=== PATIENT | male | born 1950 | race Caucasian/White ===

== ENCOUNTER 2019-09-24 22:48 | Inpatient (IN) | payer OTHER ==
--- NOTE | 2019-09-24 23:29 | PDOC ---
History of Present Illness - General Chief Complaint: Edema Stated Complaint: LEG SWELLING/SOB Time Seen by Provider: 09/24/19 23:26 Past History - Medical History Allergies/Adverse Reactions: Allergies Allergy/AdvReac Type Severity Reaction Status Date / Time Penicillins Allergy Intermediate Rash Verified 09/25/19 01:22 aspirin AdvReac Intermediate Verified 09/25/19 01:22 Home Medications: Ambulatory Orders Amlodipine Besylate [Norvasc -] 10 mg PO DAILY 09/27/19 Irbesartan [Avapro] 300 mg PO DAILY 09/27/19 metFORMIN HCL [Metformin HCl] 850 mg PO DAILY 09/27/19 COPD: No Diabetes: Yes HTN: Yes - Psycho-Social/Smoking History Smoking History: Never smoked - Substance Abuse Hx (Audit-C & DAST Scrn) How often the patient has a drink containing alcohol: Never Score: In Men: 4 or > Positive; In Women: 3 or > Positive: 0 Screen Result (Pos requires Nsg. Audit-10AR): Negative *Physical Exam - Vital Signs Last Vital Signs Temp Pulse Resp BP Pulse Ox 98.7 F 103 H 20 171/77 H 100 09/24/19 23:03 09/24/19 23:03 09/24/19 23:03 09/24/19 23:03 09/24/19 23:03 ED Treatment Course - LABORATORY CBC & Chemistry Diagram: 09/30/19 05:58 09/30/19 05:58 Medical Decision Making - Medical Decision Making 09/24/19 23:49 HPI: 69yo M hx large heart, HTN (on med), DM (on med, no insulin), and kidney problems (not on dialysis) flew from [facility] today came straight here for medical care c/o 4mo BLE edema, 1mo SOB and intermittent CP worse with exertion, 4 episodes of syncope last week, and 3 days of decreased appetite and b/l kidney pain. BLE edema so poor unable to walk. Syncope with head injury and chin and mouth lac. Tetanus unknown. ROS: Constitutional: Negative for chills, fever, fatigue, diaphoresis. HENT: Positive for head injury, lacs to chin and mouth. Negative for sore throat, rhinorrhea, congestion. Eyes: Negative for visual disturbance. Respiratory: Positive for shortness of breath. Negative for cough, and wheezing. Cardiovascular: Positive for chest pain, and leg swelling. Negative for palpitations. Gastrointestinal: Positive for decreased appetite. Negative for abdominal pain, blood in stool, constipation, diarrhea, nausea, and vomiting. Genitourinary: Positive for b/l flank pain. Negative for dysuria, and hematuria. Musculoskeletal: Negative for myalgias, back pain, and neck pain. Skin: Negative for rash. Neurological: Positive for syncope. Negative for light-headedness, dizziness, vertigo, weakness, numbness and headaches. Psychiatric/Behavioral: Negative for behavioral problems and confusion. PE: Gen: Alert, NAD, comfortable-appearing. HEENT: PERRL, EOMI, MMM, NC, healing lacs to chin and mouth. No conjunctival pallor. Sclera are non-icteric. Oropharynx is clear. CV: Regular rate and rhythm. No murmurs, rubs, or gallops. PULM: No resp distress. CTAB, no wheezes, rales, or rhonchi. ABD: soft, NT/ND, no rebound tenderness or guarding, no CVA tenderness. BACK: No TTP of c/t/l-spine. No step-offs or deformities. MSK: No bony deformities. 2+ pulses in all extremities. NEURO: AAOx3. PERRL. CN 2-12 intact. 5/5 strength in all extremities. Sensation to light touch intact in all extremities. No pronator drift. No dysmetria. No dysdiadochokinesia. No abnormal nystagmus. EXTREMITIES: No cyanosis. No clubbing. 2+ BLE edema to knees. No calf tenderness. PSYCH: Normal mood and thought pattern. SKIN: Warm and dry. Normal capillary refill. No rashes. + questionable jaundice. MDM: 69yo M hx large heart, HTN (on med), DM (on med, no insulin), and kidney problems (not on dialysis) flew from [facility] today came straight here for medical care c/o 4mo BLE edema, 1mo SOB and intermittent CP worse with exertion, 4 episodes of syncope last week, and 3 days of decreased appetite and b/l kidney pain. Hypertensive, tachycardic, otherwise hemodynamically stable, afebrile. PE notable for healing lac to chin and mouth, neurologically intact, yellow skin, 2+ BLE edema to knees Ddx: renal failure, JAQUELINE, metabolic derangement, CHF, COPD, ACS/WA, arrhythmia, ICH, stroke, UTI/pyelo, kidney stones, infection, anemia -EKG -CXR -CBC,CMP,Mg,Phos,Coags,Cardiac profile,BNP,UA/UC -CTH/c-spine -Tdap -Dispo: pending workup and reassessment, likely d/c home 09/25/19 01:36 Labs reviewed. Notable for Renal failure, hyperkalemia EKG reviewed: normal sinus rhythm, 98bpm, normal axis, normal intervals, no e/o acute ischemia, no significant change from prior CXR reviewed: focal scarring or atelectasis by L heard border, consider other etiologies, no e/o infiltrate or failure, L clips, old L humeral fx -Consult Renal -Ca, D50, Insulin, IVF -Admit tele 09/25/19 01:[address] Galdamez -Ashia 30 -Lasix 100 -repeat labs in 4hrs, if no improvement, will need emergent dialysis, let Rudolph know of repeat labs 09/25/19 02:24 CT c-spine/head: no acute pathology Signed out to inpatient team Discharge - Discharge Information Problems reviewed: Yes Clinical Impression/Diagnosis: Hyperkalemia Kidney failure Qualifiers: Renal failure chronicity: acute on chronic Condition: Stable - Admission Yes - Follow up/Referral - Patient Discharge Instructions - Post Discharge Activity
[2019-09-24] MEDS ORDERED: DIPHTH,PERTUSS(ACELL),TET 0.5 ML DISP.SYRIN IM ONE (23:57)
[2019-09-25 00:34] LABS: BASO % 0.4 % (0-2.0); EOS % 4.6 % (0-4.5); HEMATOCRIT 30.5 % (35.4-49); HEMOGLOBIN 9.9 GM/dL (11.7-16.9); LYMPH % 18.5 % (8-40); MCH 29.4 pg (25.7-33.7); MCHC 32.6 g/dl (32.0-35.9); MEAN CELL VOLUME 90.2 fl (80-96); MEAN PLT VOLUME 7.4 fl (7.5-11.1); MONO % 10.1 % (3.8-10.2); NEUT % 66.4 % (42.8-82.8); PLATELET COUNT 220 K/MM3 (134-434); RBC 3.38 M/mm3 (4.00-5.60); WHITE BLOOD COUNT 8.9 K/mm3 (4.0-10.0)
[2019-09-25 00:35] LABS: INR 1.03 (0.83-1.09); PROTHROMBIN TIME (PATIENT) 12.1 SEC (9.7-13.0)
[2019-09-25 00:37] LABS: ACTIVATED PTT 31.7 SECONDS (25.2-36.5)
[2019-09-25 01:03] LABS: ALBUMIN 3.7 g/dl (3.4-5.0); BILIRUBIN,TOTAL 0.4 mg/dL (0.2-1); BLOOD UREA NITROGEN 80.3 mg/dL (7-18); CALCIUM 8.7 mg/dL (8.5-10.1); MAGNESIUM 1.7 mg/dL (1.8-2.4); N-TERMINAL BNP 18709.5 pg/ml (5-125); PHOSPHOROUS 5.7 mg/dL (2.5-4.9); TOT PROT 7.7 g/dl (6.4-8.2)
[2019-09-25 01:17] LABS: POTASSIUM 7.7 mmol/L (3.5-5.1)
[2019-09-25] MEDS ORDERED: DEXTROSE 50%-WATER - 25 GM/50 ML VIAL IVPUSH ONE ×3 (01:17→09:56)
[2019-09-25] MEDS ORDERED: INSULIN REGULAR HUMAN 100 UNITS/ML *VIAL IVPUSH ONE ×2 (01:17→09:57)
[2019-09-25] MEDS ORDERED: CALCIUM GLUCONATE 10% - 1,000 MG/10 ML VIAL IVPUSH ONE ×2 (01:17→09:55)
[2019-09-25] MEDS ORDERED: SODIUM CHLORIDE 250 ML IV STA (01:19)
[2019-09-25 01:24] LABS: EPI CELLS 6 /uL (0-25.1); HYALINE CASTS 0 /uL (0-3.1); URINE APPEARANCE CLEAR; URINE BACTERIA 79 /uL (0-1359); URINE BILIRUBIN NEGATIVE (NEGATIVE); URINE COLOR YELLOW; URINE GLUCOSE (UA) NEGATIVE (NEGATIVE); URINE KETONE NEGATIVE (NEGATIVE); URINE LEUK ESTERASE NEGATIVE (NEGATIVE); URINE NITRITE NEGATIVE (NEGATIVE); URINE PROTEIN 3+ (NEGATIVE); URINE RBC 23 /uL (0-23.9); URINE UROBILINOGEN 0.2 mg/dL (0.2-1.0); URINE WBC 6 /uL (0-25.8)
[2019-09-25] MEDS ORDERED: CALCIUM GLUCONATE 10% - 1,000 MG/10 ML VIAL ONE (01:24)
[2019-09-25] MEDS ORDERED: DEXTROSE 50%-WATER 25 GM/50 ML DISP.SYRIN ONE ×2 (01:25→10:01)
[2019-09-25] MEDS ORDERED: FUROSEMIDE 100 MG/10 ML INJECTABLE VIAL IVPB ONE (01:41)
[2019-09-25] MEDS ORDERED: SODIUM POLYSTYRENE SULFONATE 15 GM/60 ML BOTTLE PO ONE (01:41)
--- NOTE | 2019-09-25 02:04 | PN ---
Teaching Attending Note Name of Resident: Milagros Harrington ATTENDING PHYSICIAN STATEMENT I saw and evaluated the patient. I reviewed the resident's note and discussed the case with the resident. I agree with the resident's findings and plan as documented. SUBJECTIVE: Patient is a 69 year old man with a PMH of "Large heart", Penicillin allergy, HTN, NIDDM and CKD who flew in from [facility] today with complaint of BLE edema, SOB and intermittent CP worse with exertion for months. Reports four episodes of syncope last week and three days of decreased appetite and bilateral "kidney pain". BLE edema so bad he is unable to walk. Syncope resulted in head injury and chin and mouth laceration. Denies fever, chills, headache, nausea, v omiting, or urinary changes. Denies alcohol, tobacco or illicit drug use. No sick contacts or recent travels. Family history is unremarkable. OBJECTIVE: Alert Vital Signs Period Temp Pulse Resp BP Sys/Lopes Pulse Ox Last 24 Hr 98.7 F 103 20 171/77 100 HEENT: No Jaundice, eye redness or discharge, PERRLA, EOMI. Chin laceration; Normocephalic. External ears are normal and hearing is grossly intact. No nasal discharge. Neck: Supple, nontender. No palpable adenopathy or thyromegaly. No JVD Chest: Good effort. Clear to auscultation and percussion. Heart: Regular. No S3, rub or murmur Abdomen: Not distended, soft, nontender and no HSM. No rebound or guarding. Normal bowel sounds. Ext: Peripheral pulses intact. Leg edema. Skin: Warm and dry. No petechiae, rash or ecchymosis. Neuro: Alert. Oriented x3. CN 2-12 grossly intact. Sensation grossly intact in all four extremities and DTR are symmetric. Psych: Appropriate mood and affect. Good insight. Current Medications Generic Name Dose Route Start Last Admin Trade Name Freq PRN Reason Stop Dose Admin Diphtheria/Tetanus/Acell Pertussis 0.5 ml 09/24/19 23:57 09/25/19 01:45 Boostrix - IM 09/24/19 23:58 0.5 ml .ONCE ONE Administration Sodium Bicarbonate 50 meq 09/25/19 02:06 09/25/19 02:35 Sodium Bicarbonate 8.4% - IVPUSH 09/25/19 02:07 50 meq ONCE ONE Administration Abnormal Lab Results 09/25/19 09/25/19 09/25/19 00:09 00:09 01:00 RBC 3.38 L Hgb 9.9 L Hct 30.5 L RDW 17.0 H MPV 7.4 L Eosinophils % 4.6 H Potassium 7.7 H* Chloride 114 H Carbon Dioxide 17 L BUN 80.3 H Creatinine 13.0 H* Phosphorus 5.7 H Magnesium 1.7 L AST 61 H ALT 67 H Creatine Kinase 1820 H CK-MB (CK-2) 19.3 H Troponin I 0.06 H B-Natriuretic Peptide 39969.5 H Urine Protein 3+ H Urine Blood 3+ H Current Medications Generic Name Dose Route Start Last Admin Trade Name Freq PRN Reason Stop Dose Admin Diphtheria/Tetanus/Acell Pertussis 0.5 ml 09/24/19 23:57 09/25/19 01:45 Boostrix - IM 09/24/19 23:58 0.5 ml .ONCE ONE Administration Heparin Sodium (Porcine) 5,000 unit 09/25/19 06:00 Heparin - SQ TID [facility] Insulin Aspart 1 vial 09/25/19 07:00 Novolog Vial Sliding Scale - SQ ACHS [facility] Protocol ASSESSMENT AND PLAN: 1. Advanced CKD/Severe hyperkalemia/Syncope - Syncope likely due to metabolic/electrolyte derangements associated with kidney failure. No evidence of acute intracranial pathology on noncontrast head CT scan. CXR shows cardiomegaly with no evidence of acute lung disease. Report of C-spine CT = "1. There is no definitive evidence of acute compression fracture or subluxation seen. 2. There is straightening of the normal lordotic curvature which may be seen with muscular strain. 3. There is multilevel multi-factorial spondylosis" No reported EKG changes of hyperkalemia in the ER. ER staff prescribed Nitropaste, calcium gluconate, Kayexalate, D50W, IV Insulin, IV NaHCO3, IV Lasix 100 mg, DPT vaccine and IV NS for the patient. Repeat BMP pending. ER staff consulted Nephrology for ESRD care. Will get kidney sonogram and monitor urine output. Avoid nephrotoxic agents such as NSAIDS, aminoglycosides, contrast dyes and certain Alternative medicine products. EKG shows NSR at 98/minute, LAE, Tall peaked T waves and QTc [address] changes. Troponin of 0.06 likely due to decreased clearance and/or demand ischemia. Will admit to telemetry, trend troponin, get ECHO, TSH, continue to monitor K+, get abdominal sonogram to evaluate elevated LFTs, PTH, trend LFTs, treat with phosphate binder and get hepatitis serology. Consult Cardiology. Viral testing for COVID-19 ordered and patient placed on airborne, droplet and contact isolation. Will continue comprehensive care for all of patients comorbid conditions. 2. DM For now, we will hold the home diabetes drugs and implement sliding scale insulin regimen. Provide comprehensive diabetes care with patient teaching and counseling about the importance of adherence to prescribed diabetes regimen, euglycemia, eye care and foot care. 3. Anemia - Likely chiefly due to CKD. Will do basic anemia work up including serial stool guaiacs, reticulocyte count and iron studies. Would benefit from Procrit therapy once iron replete. 4. Uncontrolled hypertension Will restart suitable outpatient antihypertensive drugs when clinically appropriate. Subsequently, will revise regimen to ensure [id number] excellent BP control. Patient counseled on the injurious effects of uncontrolled hypertension. Nonpharmacologic measures to control hypertension like weight loss, salt restriction and exercise stressed. Importance of adherence to treatment regimen and attainment of normotension emphasized. 5. DVT prophylaxis - Heparin 5000u sq tid. 6. Advance directives - Full code.
[2019-09-25] MEDS ORDERED: SODIUM BICARBONATE 8.4% 50 MEQ/50 ML DISP.SYRIN IVPUSH ONE (02:06)
[2019-09-25] MEDS ORDERED: SODIUM POLYSTYRENE SULFONATE 15 GM/60 ML BOTTLE ONE ×2 (02:08→02:09)
[2019-09-25] MEDS ORDERED: FUROSEMIDE 40 MG/4 ML INJECTABLE VIAL ONE ×2 (02:08→10:01)
[2019-09-25] MEDS ORDERED: NITROGLYCERIN 2% OINTMENT - 1GM PACKET TD ONE ×2 (02:28→02:29)
[2019-09-25 05:09] LABS: ALBUMIN 3.5 g/dl (3.4-5.0); BILIRUBIN,TOTAL 0.4 mg/dL (0.2-1); BLOOD UREA NITROGEN 80.7 mg/dL (7-18); CALCIUM 8.7 mg/dL (8.5-10.1); MAGNESIUM 1.7 mg/dL (1.8-2.4); PHOSPHOROUS 5.4 mg/dL (2.5-4.9); POTASSIUM 5.3 mmol/L (3.5-5.1); TOT PROT 7.3 g/dl (6.4-8.2)
[2019-09-25 05:10] LABS: CREATININE 12.8 mg/dL (0.55-1.3)
[2019-09-25] MEDS: INSULIN SLIDING SCALE (NOVOLOG) 1 VIAL SQ SCH ×4 (06:43→22:44)
--- NOTE | 2019-09-25 06:45 | PN ---
Physical Exam: SUBJECTIVE: Patient seen and examined OBJECTIVE: Vital Signs Period Temp Pulse Resp BP Sys/Lopes Pulse Ox Last 24 Hr 97.6 F-98.7 F 103-107 19-20 145-171/71-80 97-100 GENERAL: The patient is awake, alert, and fully oriented, in no acute distress. HEAD: Normal with no signs of trauma. EYES: PERRL, extraocular movements intact, sclera anicteric, conjunctiva clear. No ptosis. ENT: Ears normal, nares patent, oropharynx clear without exudates, moist mucous membranes. NECK: Trachea midline, full range of motion, supple. LUNGS: Breath sounds equal, clear to auscultation bilaterally, no wheezes, no crackles, no accessory muscle use. HEART: Regular rate and rhythm, S1, S2 without murmur, rub or gallop. ABDOMEN: Soft, nontender, nondistended, normoactive bowel sounds, no guarding, no rebound, no hepatosplenomegaly, no masses. EXTREMITIES: 2+ pulses, warm, well-perfused, no edema. NEUROLOGICAL: Cranial nerves II through XII grossly intact. Normal speech, gait not observed. PSYCH: Normal mood, normal affect. SKIN: Warm, dry, normal turgor, no rashes or lesions noted Laboratory Results - last 24 hr 09/25/19 09/25/19 09/25/19 00:09 00:09 00:09 WBC 8.9 RBC 3.38 L Hgb 9.9 L Hct 30.5 L MCV 90.2 MCH 29.4 MCHC 32.6 RDW 17.0 H Plt Count 220 MPV 7.4 L Absolute Neuts (auto) 5.9 Neutrophils % 66.4 Lymphocytes % 18.5 Monocytes % 10.1 Eosinophils % 4.6 H Basophils % 0.4 Nucleated RBC % 0 PT with INR 12.10 INR 1.03 PTT (Actin FS) 31.7 Sodium 141 Potassium 7.7 H* Chloride 114 H Carbon Dioxide 17 L Anion Gap 10 BUN 80.3 H Creatinine 13.0 H* Est GFR (CKD-EPI)AfAm 4.02 Est GFR (CKD-EPI)NonAf 3.46 POC Glucometer Random Glucose 100 Calcium 8.7 Phosphorus 5.7 H Magnesium 1.7 L Total Bilirubin 0.4 AST 61 H ALT 67 H Alkaline Phosphatase 83 Creatine Kinase 1820 H Creatine Kinase Index 1.0 CK-MB (CK-2) 19.3 H Troponin I 0.06 H B-Natriuretic Peptide 85025.5 H Total Protein 7.7 Albumin 3.7 Urine Color Urine Appearance Urine pH Ur Specific [place] Urine Protein Urine Glucose (UA) Urine Ketones Urine Blood Urine Nitrite Urine Bilirubin Urine Urobilinogen Ur Leukocyte Esterase Urine WBC (Auto) Urine RBC (Auto) Urine Casts (Auto) U Pathogenic Cast Auto U Epithel Cells (Auto) Urine Bacteria (Auto) 09/25/19 09/25/19 09/25/19 01:00 04:06 06:29 WBC RBC Hgb Hct MCV MCH MCHC RDW Plt Count MPV Absolute Neuts (auto) Neutrophils % Lymphocytes % Monocytes % Eosinophils % Basophils % Nucleated RBC % PT with INR INR PTT (Actin FS) Sodium 144 Potassium 5.3 H Chloride 116 H Carbon Dioxide 16 L Anion Gap 12 BUN 80.7 H Creatinine 12.8 H* Est GFR (CKD-EPI)AfAm 4.09 Est GFR (CKD-EPI)NonAf 3.53 POC Glucometer 71 Random Glucose 51 L Calcium 8.7 Phosphorus 5.4 H Magnesium 1.7 L Total Bilirubin 0.4 AST 54 H ALT 61 Alkaline Phosphatase 79 Creatine Kinase Creatine Kinase Index CK-MB (CK-2) Troponin I B-Natriuretic Peptide Total Protein 7.3 Albumin 3.5 Urine Color Yellow Urine Appearance Clear Urine pH 5.0 Ur Specific [place] 1.012 Urine Protein 3+ H Urine Glucose (UA) Negative Urine Ketones Negative Urine Blood 3+ H Urine Nitrite Negative Urine Bilirubin Negative Urine Urobilinogen 0.2 Ur Leukocyte Esterase Negative Urine WBC (Auto) 6 Urine RBC (Auto) 23 Urine Casts (Auto) 0 U Pathogenic Cast Auto None U Epithel Cells (Auto) 6 Urine Bacteria (Auto) 79 09/25/19 06:42 WBC RBC Hgb Hct MCV MCH MCHC RDW Plt Count MPV Absolute Neuts (auto) Neutrophils % Lymphocytes % Monocytes % Eosinophils % Basophils % Nucleated RBC % PT with INR INR PTT (Actin FS) Sodium Potassium Chloride Carbon Dioxide Anion Gap BUN Creatinine Est GFR (CKD-EPI)AfAm Est GFR (CKD-EPI)NonAf POC Glucometer 84 Random Glucose Calcium Phosphorus Magnesium Total Bilirubin AST ALT Alkaline Phosphatase Creatine Kinase Creatine Kinase Index CK-MB (CK-2) Troponin I B-Natriuretic Peptide Total Protein Albumin Urine Color Urine Appearance Urine pH Ur Specific [place] Urine Protein Urine Glucose (UA) Urine Ketones Urine Blood Urine Nitrite Urine Bilirubin Urine Urobilinogen Ur Leukocyte Esterase Urine WBC (Auto) Urine RBC (Auto) Urine Casts (Auto) U Pathogenic Cast Auto U Epithel Cells (Auto) Urine Bacteria (Auto) Active Medications Generic Name Dose Route Start Last Admin Trade Name Freq PRN Reason Stop Dose Admin Diphtheria/Tetanus/Acell Pertussis 0.5 ml 09/24/19 23:57 09/25/19 01:45 Boostrix - IM 09/24/19 23:58 0.5 ml .ONCE ONE Administration Heparin Sodium (Porcine) 5,000 unit 09/25/19 06:00 Heparin - SQ TID [facility] Insulin Aspart 1 vial 09/25/19 07:00 09/25/19 06:43 Novolog Vial Sliding Scale - SQ Not Given ACHS [facility] Protocol ASSESSMENT/PLAN: ATTENDING PHYSICIAN STATEMENT I saw and evaluated the patient. I reviewed the resident's note and discussed the case with the resident. I agree with the resident's findings and plan as documented. SUBJECTIVE: OBJECTIVE: ASSESSMENT AND PLAN:
--- NOTE | 2019-09-25 06:46 | HP ---
CHIEF COMPLAINT: lower extremity swelling/shortness of breath PCP: HISTORY OF PRESENT ILLNESS: Pt is a 69 y/o male with HTN, DM, ?CHF, "kidney infection" 2 weeks ago (states he was not given medication for this), who presents with 4 months of worsening b/l LE swelling as well as shortness of breath. He also had 4 episodes of syncope in the last week with one resulting in a small chin laceration. He flew in from the today and came straight to the ED. He reports shortness of breath is improved with sitting up and tries to sleep flat but tends to sit up which causes disturbance in his sleep. He also has mild dizziness that is not positional. He denies fever, chills, nausea, or vomiting. ER course was notable for: (1) Lasix and Kayexalate Recent Travel: returned from today PAST MEDICAL HISTORY: HTN, DM, ?CHF, "kidney infection" 2 weeks ago (states he was not given medication for this) PAST SURGICAL HISTORY: denies Social History: Smoking: denies Alcohol: denies Drugs: denies Family History: cardiac hx and DM Allergies Penicillins Allergy (Intermediate, Verified 09/25/19 01:22) Rash aspirin Adverse Reaction (Intermediate, Verified 09/25/19 01:22) HOME MEDICATIONS: metformin amlodipine irbesartan REVIEW OF SYSTEMS see HPI PHYSICAL EXAMINATION Vital Signs - 24 hr 09/24/19 09/25/19 09/25/19 23:03 03:01 04:13 Temperature 98.7 F 97.9 F 97.8 F Pulse Rate 103 H Pulse Rate [ 106 H 105 H Left Radial] Respiratory 20 20 19 Rate Blood Pressure 171/77 H Blood Pressure 145/71 162/72 [Right Arm] O2 Sat by Pulse 100 97 100 Oximetry (%) 09/25/19 06:14 Temperature 97.6 F Pulse Rate Pulse Rate [ 107 H Left Radial] Respiratory 20 Rate Blood Pressure Blood Pressure 171/80 H [Right Arm] O2 Sat by Pulse 100 Oximetry (%) GENERAL: Awake, alert, and fully oriented, in no acute distress. Croatian- speaking. HEAD: Normal with no signs of trauma. EYES: Pupils equal, round and reactive to light, extraocular movements intact, conjunctiva clear. EARS, NOSE, THROAT: Ears normal, nares patent, moist mucous membranes. NECK: Normal range of motion, no JVD. LUNGS: Clear to auscultation bilaterally. No wheezes, and no crackles. HEART: Regular rate and rhythm, no murmur appreciated. ABDOMEN: Soft, nontender, not distended, normoactive bowel sounds. MUSCULOSKELETAL: Normal range of motion at all joints. UPPER EXTREMITIES: Warm, well-perfused. No peripheral edema. LOWER EXTREMITIES: Warm, well-perfused. +1 pitting edema below knees. NEUROLOGICAL: Cranial nerves II-XII grossly intact. Normal speech. PSYCHIATRIC: Cooperative. Good eye contact. Appropriate mood and affect. SKIN: Warm, dry, normal turgor. 1cm laceration under chin. Laboratory Results - last 24 hr 09/25/19 09/25/19 09/25/19 00:09 00:09 00:09 WBC 8.9 RBC 3.38 L Hgb 9.9 L Hct 30.5 L MCV 90.2 MCH 29.4 MCHC 32.6 RDW 17.0 H Plt Count 220 MPV 7.4 L Absolute Neuts (auto) 5.9 Neutrophils % 66.4 Lymphocytes % 18.5 Monocytes % 10.1 Eosinophils % 4.6 H Basophils % 0.4 Nucleated RBC % 0 PT with INR 12.10 INR 1.03 PTT (Actin FS) 31.7 Sodium 141 Potassium 7.7 H* Chloride 114 H Carbon Dioxide 17 L Anion Gap 10 BUN 80.3 H Creatinine 13.0 H* Est GFR (CKD-EPI)AfAm 4.02 Est GFR (CKD-EPI)NonAf 3.46 POC Glucometer Random Glucose 100 Calcium 8.7 Phosphorus 5.7 H Magnesium 1.7 L Total Bilirubin 0.4 AST 61 H ALT 67 H Alkaline Phosphatase 83 Creatine Kinase 1820 H Creatine Kinase Index 1.0 CK-MB (CK-2) 19.3 H Troponin I 0.06 H B-Natriuretic Peptide 22640.5 H Total Protein 7.7 Albumin 3.7 Urine Color Urine Appearance Urine pH Ur Specific [place] Urine Protein Urine Glucose (UA) Urine Ketones Urine Blood Urine Nitrite Urine Bilirubin Urine Urobilinogen Ur Leukocyte Esterase Urine WBC (Auto) Urine RBC (Auto) Urine Casts (Auto) U Pathogenic Cast Auto U Epithel Cells (Auto) Urine Bacteria (Auto) 09/25/19 09/25/19 09/25/19 01:00 04:06 06:29 WBC RBC Hgb Hct MCV MCH MCHC RDW Plt Count MPV Absolute Neuts (auto) Neutrophils % Lymphocytes % Monocytes % Eosinophils % Basophils % Nucleated RBC % PT with INR INR PTT (Actin FS) Sodium 144 Potassium 5.3 H Chloride 116 H Carbon Dioxide 16 L Anion Gap 12 BUN 80.7 H Creatinine 12.8 H* Est GFR (CKD-EPI)AfAm 4.09 Est GFR (CKD-EPI)NonAf 3.53 POC Glucometer 71 Random Glucose 51 L Calcium 8.7 Phosphorus 5.4 H Magnesium 1.7 L Total Bilirubin 0.4 AST 54 H ALT 61 Alkaline Phosphatase 79 Creatine Kinase Creatine Kinase Index CK-MB (CK-2) Troponin I B-Natriuretic Peptide Total Protein 7.3 Albumin 3.5 Urine Color Yellow Urine Appearance Clear Urine pH 5.0 Ur Specific [place] 1.012 Urine Protein 3+ H Urine Glucose (UA) Negative Urine Ketones Negative Urine Blood 3+ H Urine Nitrite Negative Urine Bilirubin Negative Urine Urobilinogen 0.2 Ur Leukocyte Esterase Negative Urine WBC (Auto) 6 Urine RBC (Auto) 23 Urine Casts (Auto) 0 U Pathogenic Cast Auto None U Epithel Cells (Auto) 6 Urine Bacteria (Auto) 79 09/25/19 06:42 WBC RBC Hgb Hct MCV MCH MCHC RDW Plt Count MPV Absolute Neuts (auto) Neutrophils % Lymphocytes % Monocytes % Eosinophils % Basophils % Nucleated RBC % PT with INR INR PTT (Actin FS) Sodium Potassium Chloride Carbon Dioxide Anion Gap BUN Creatinine Est GFR (CKD-EPI)AfAm Est GFR (CKD-EPI)NonAf POC Glucometer 84 Random Glucose Calcium Phosphorus Magnesium Total Bilirubin AST ALT Alkaline Phosphatase Creatine Kinase Creatine Kinase Index CK-MB (CK-2) Troponin I B-Natriuretic Peptide Total Protein Albumin Urine Color Urine Appearance Urine pH Ur Specific [place] Urine Protein Urine Glucose (UA) Urine Ketones Urine Blood Urine Nitrite Urine Bilirubin Urine Urobilinogen Ur Leukocyte Esterase Urine WBC (Auto) Urine RBC (Auto) Urine Casts (Auto) U Pathogenic Cast Auto U Epithel Cells (Auto) Urine Bacteria (Auto) ASSESSMENT/PLAN: Pt is a 69 y/o male with HTN, DM, ?CHF, "kidney infection" 2 weeks ago (states he was not given medication for this), who presents with 4 months of worsening b/l LE swelling as well as shortness of breath. He is admitted for dyspnea. #dyspnea and lower extremity swelling likely 2/2 CHF -pt reports being told he has cardiomegaly, so he may have CHF -BNP 18K -obtain echo -TSH -trop 0.06 repeat -cardiology consulted -consider liver U/S #hyperkalemia -7.7 at presentation, with improvement to 5.2 after given Kayexalate, and calcium gluconate and insulin with D50 -nephrology following #hyperphosphatemia -PTH #JAQUELINE -unknown baseline -Cr 13 -trend labs -renal U/S #DM -SSI -BGMs #normocytic anemia -iron panel -stool occult series DVT Ppx heparin FEN no IV fluids monitor K, Cr dispo med/surg FULL CODE Visit type - Medication Review Med list reviewed for High Risk Meds patients 65 and older: Yes - Emergency Visit Emergency Visit: Yes ED Registration Date: 09/25/19 Care time: The patient presented to the Emergency Department on the above date and was hospitalized for further evaluation of their emergent condition. - New Patient This patient is new to me today: Yes Date on this admission: 09/25/19 - Critical Care Critical Care patient: No ATTENDING PHYSICIAN STATEMENT I saw and evaluated the patient. I reviewed the resident's note and discussed the case with the resident. I agree with the resident's findings and plan as documented. SUBJECTIVE: OBJECTIVE: ASSESSMENT AND PLAN:
[2019-09-25] MEDS ORDERED: HEPARIN NA (PORCINE) 5,000 UNITS/ML 1ML VIAL ONE (06:47)
[2019-09-25] MEDS: HEPARIN NA (PORCINE) 5,000 UNITS/ML 1ML VIAL SQ SCH ×3 (06:47→21:06)
--- NOTE | 2019-09-25 08:15 | CON.NEP ---
Consult Consult Specialty:: Nephrlogy Referred by:: ED Reason for Consultation:: Hyperkalema and acute kidney injury - History of Present Illness Chief Complaint: Leg swelling History of Present Illness: This is a 69 year old male with history of hypertension, non-insulin dependent DM, cardiomyopathy, and possible CKD who came from the [place] and presented to the ED with complaints of leg swelling and syncope and found to have renal failure and hyperkalemia. Seen and examined in the ED. He is awake and alert, reports feeling better this morning. Is making urine. Pt said he was not following with a doctor regurarly but did go see one last week for his leg swelling and was told that he had a kidney problem. He denies any NSAID use. Was on ARB/amlodipine, ferrous sulfate and metformin at home. Denies any symptoms of urinary retention. No flank pain. Did have 4 episodes of syncope over the past week. - History Source History Provided By: Patient Limitations to Obtaining History: No Limitations - Past Medical History Cardio/Vascular: Yes: CHF, HTN Endocrine: Yes: Diabetes Mellitus - Smoking History Smoking history: Never smoked Home Medications - Allergies Allergies/Adverse Reactions: Allergies Allergy/AdvReac Type Severity Reaction Status Date / Time Penicillins Allergy Intermediate Rash Verified 09/25/19 01:22 aspirin AdvReac Intermediate Verified 09/25/19 01:22 Family Medical History Family History: Unremarkable Review of Systems - Review of Systems Constitutional: reports: Lethargy Eyes: reports: No Symptoms HENT: reports: No Symptoms Neck: reports: No Symptoms Cardiovascular: reports: Edema. denies: Chest Pain, Palpitations, Shortness of Breath Respiratory: denies: Orthopnea, PND, SOB, SOB on Exertion Gastrointestinal: reports: No Symptoms Genitourinary: reports: No Symptoms Breasts: reports: No Symptoms Reported Musculoskeletal: reports: No Symptoms Integumentary: reports: No Symptoms Neurological: reports: No Symptoms Endocrine: reports: No Symptoms Nephrology Consult - Height Height: 5 ft 6 in - Weight Weight: 71.668 kg - BMI Body Mass Index (BMI): 25.4 - Lab Results CBC,BMP: CBC, BMP 09/25/19 00:09 Anion Gap: Anion Gap Anion Gap 12 MMOL/L (8-16) 09/25/19 04:06 - Imaging Chest X-ray: Image Reviewed - Physical Examination Vital Signs: Vital Signs Temperature 97.6 F 09/25/19 06:14 Pulse Rate 101 H 09/25/19 07:29 Respiratory Rate 20 09/25/19 07:29 Blood Pressure 134/71 09/25/19 07:29 O2 Sat by Pulse Oximetry (%) 100 09/25/19 07:29 Constitutional: Yes: Well Nourished, No Distress, Calm Eyes: Yes: Conjunctiva Clear HENT: Yes: Atraumatic Neck: Yes: Supple Cardiovascular: Yes: Regular Rate and Rhythm. No: Murmur, Rub Respiratory: Yes: Regular, CTA Bilaterally. No: Rales, Rhonchi, SOB Gastrointestinal: Yes: Soft, Distention. No: Tenderness Renal/: No: Bladder Distention, CVA Tenderness - Right, Caal Present Extremities: No: Cool, Cyanosis Edema: Yes Edema: LLE: 2+, RLE: 2+ Neurological: Yes: Alert, Oriented. No: Asterixis Assessment/Plan 69 year old male with history of hypertension, non-insulin dependent D M, cardiomyopathy, and possible CKD who came from the [place] and presented to the ED with complaints of leg swelling and syncope and found to have renal failure and hyperkalemia. 1. Acute renal injury vs CKD 2. Hyperkalemia in setting of renal insufficiency and ARB 3. Edema/volume overload 4. Metabolic acidosis 5. Anemia 6. Hypertension 7. DM not on insulin 9. Cardiomyopathy Differential for renal insufficiency: Obstruction vs. ATN vs. vasculitis vs. AIN vs. GN vs. Progressive CKD in setting of hypertension and DM Check Urine studies and renal/bladder US Insert caal for strict I and O Start Lasix 100mg IVPB daily for edema management Start oral sodium bicarb 1300mg BID Hyperkalemia improved s/p medical management Low potassium diet and Lokelma daily Renal diet Discontinue TAMMY/ARB CCB for hypertension If there is no improvement in renal function or rapidly reversible cause found for renal injury will likely warrant dialysis in next 24-48 hours Discontinue metformin Low sodium diet Cardiology eval Tele monitoring Thank you Luiz Galdamez DO
[2019-09-25 08:34] LABS: BLOOD UREA NITROGEN 80.2 mg/dL (7-18); CALCIUM 8.5 mg/dL (8.5-10.1); MAGNESIUM 1.7 mg/dL (1.8-2.4); PHOSPHOROUS 6.5 mg/dL (2.5-4.9)
--- NOTE | 2019-09-25 08:52 | EKG ---
Test Reason : Blood Pressure : / mmHG Vent. Rate : 098 BPM Atrial Rate : 098 BPM P-R Int : 144 ms QRS Dur : 084 ms QT Int : 326 ms P-R-T Axes : 065 036 096 degrees QTc Int : 416 ms NORMAL SINUS RHYTHM POSSIBLE LEFT ATRIAL ENLARGEMENT SEPTAL INFARCT , AGE UNDETERMINED ABNORMAL ECG NO PREVIOUS ECGS AVAILABLE Confirmed by Aretha Sharp ([id number]) on 09/25/2019 8:52:07 AM Referred By: Confirmed By:Aretha Sharp
[2019-09-25 08:56] LABS: CREATININE 12.7 mg/dL (0.55-1.3); POTASSIUM 7.6 mmol/L (3.5-5.1)
[2019-09-25] MEDS ORDERED: SODIUM ZIRCONIUM CYCLOSILICATE (LOKELMA) 5 GM PACKET PO SCH (09:00)
--- NOTE | 2019-09-25 09:10 | PN ---
Progress Note, Physician Chief Complaint: feels little better than since he came in, History of Present Illness: Patient is a 69 year old man with a PMH of "Large heart", Penicillin allergy, HTN, NIDDM and CKD who flew in from [place] today with complaint of BLE edema, SOB and intermittent CP worse with exertion for months. Reports four episodes of syncope last week and three days of decreased appetite and bilateral "kidney pain". BLE edema so bad he is unable to walk. Syncope resulted in head injury and chin and mouth laceration. Denies fever, chills, headache, nausea, vomiting, or urinary changes. Denies alcohol, tobacco or illicit drug use. No sick contacts or recent travels. Family history is unremarkable. - Current Medication List Current Medications: Active Medications Amlodipine Besylate (Norvasc -) 5 mg PO DAILY [facility] Furosemide (Lasix Injection -) 100 mg IVPB DAILY [facility] Heparin Sodium (Porcine) (Heparin -) 5,000 unit SQ TID [facility] Last Admin: 09/25/19 06:47 Dose: 5,000 unit Documented by: Insulin Aspart (Novolog Vial Sliding Scale -) 1 vial SQ ACHS [facility]; Protocol Last Admin: 09/25/19 06:43 Dose: Not Given Documented by: Sodium Bicarbonate (Sodium Bicarbonate -) 1,300 mg PO BID [facility] Sodium Zirconium Cyclosilicate (Lokelma) 10 gm PO DAILY [facility] - Objective Vital Signs: Vital Signs Temperature 97.6 F 09/25/19 06:14 Pulse Rate 101 H 09/25/19 07:29 Respiratory Rate 20 09/25/19 07:29 Blood Pressure 134/71 09/25/19 07:29 O2 Sat by Pulse Oximetry (%) 100 09/25/19 07:29 Constitutional: Yes: Well Nourished, No Distress Eyes: Yes: Conjunctiva Clear, EOM Intact HENT: Yes: Atraumatic, Normocephalic Neck: Yes: Supple, Trachea Midline Cardiovascular: Yes: Regular Rate and Rhythm Respiratory: Yes: Regular, CTA Bilaterally Gastrointestinal: Yes: Normal Bowel Sounds Musculoskeletal: Yes: WNL, Other (neck pain,) Edema: Yes Edema: LLE: 2+, RLE: 2+ Peripheral Pulses WNL: Yes ...Motor Strength: WNL Labs: CBC, BMP 09/25/19 00:09 08/09/20 07:43 INR, PTT INR 1.03 (0.83-1.09) 09/25/19 00:09 Impression/Plan Impression/Plan: Pt is a 69 y/o male with HTN, DM, ?CHF, "kidney infection" 2 weeks ago (states he was not given medication for this), who presents with 4 months of worsening b/l LE swelling as well as shortness of breath. He is admitted for dyspnea. #dyspnea and lower extremity swelling 2/2 CHF -obtain echo -trop 0.06 repeat and will check the repeat. -cardiology consulted and will fu. and on HIGH LFTS abdominal sono pending for high LFTS, #hyperkalemia high K level.repat . gave Lokelma, bicarb, d50w, insulin, no kayexalate as pt has diarroea. and on renal fu, #hyperphosphatemia -PTH #JAQUELINE -renal U/S pending, and on iv lasix 100 mg daily. #DM -SSI -BGMs #normocytic anemia likely from REnal failure, -reviewed iron studies ferritin normal. but low fe, stool OB pending. DVT Ppx heparin FEN no IV fluids monitor K, Cr Visit type - Emergency Visit Emergency Visit: No - New Patient This patient is new to me today: Yes Date on this admission: 09/25/19 - Critical Care Critical Care patient: No - Discharge Referral Referred to [facility] Med [facility] No - Medication Review Med list reviewed for High Risk Meds patients 65 and older: Yes
[2019-09-25] MEDS ORDERED: CALCIUM GLUCONATE 10% - 1,000 MG/10 ML VIAL IVPB ONE (09:41)
[2019-09-25] MEDS: FUROSEMIDE 100 MG/10 ML INJECTABLE VIAL IVPB SCH (10:40)
--- NOTE | 2019-09-25 10:59 | PN ---
Progress Note (short form) - Note Progress Note: Renal follow up Repeat potassium levels noted to be > 7. Given refractory hyperkalemia pt will need dialysis today to stabilize electrolyte imbalance. The risks and benifits of dialysis were discussed with the patient and he expressed understanding and consented to the procedure. Pt has a ICU bed available to him. Dialysis catheter to be placed by the ICU team. Dialysis nurse configuration release manager to be called in. [place] catheter inserted with significant resistance as per ED nurse. It is possible that he may have bladder outlet obstruction is a contributor to JAQUELINE however given K > 7 will warrant dialysis to stabilize electrolytes. Luiz Galdamez DO
[2019-09-25] MEDS ORDERED: SODIUM CHLORIDE 250 ML IV PRN (11:00)
[2019-09-25] MEDS: amLODIPine BESYLATE 5 MG TABLET (FP) PO SCH (12:06)
[2019-09-25] MEDS: SODIUM BICARBONATE 650 MG TABLET PO SCH ×2 (12:07→21:06)
[2019-09-25 18:53] LABS: CALCIUM 7.9 mg/dL (8.5-10.1); CREATININE 7.1 mg/dL (0.55-1.3); POTASSIUM 3.8 mmol/L (3.5-5.1)
[2019-09-25 18:54] LABS: BLOOD UREA NITROGEN 39.9 mg/dL (7-18)
--- NOTE | 2019-09-25 19:09 | CONSULT ---
Consult Consult Specialty:: PULM/CCM Referred by:: Reason for Consultation:: JAQUELINE - History of Present Illness Chief Complaint: JAQUELINE History of Present Illness: 69 year old male with history of hypertension, non-insulin dependent DM, cardiomyopathy, and possible CKD who came from the [place] and was admitted to the ICU for JAQUELINE requiring emergent HD. - History Source History Provided By: Patient Limitations to Obtaining History: No Limitations - Past Medical History Cardio/Vascular: Yes: CHF, HTN Endocrine: Yes: Diabetes Mellitus - Smoking History Smoking history: Never smoked Home Medications - Allergies Allergies/Adverse Reactions: Allergies Allergy/AdvReac Type Severity Reaction Status Date / Time Penicillins Allergy Intermediate Rash Verified 09/25/19 01:22 aspirin AdvReac Intermediate Verified 09/25/19 01:22 Family Medical History Family History: Unable to Obtain, Denies Review of Systems - Review of Systems Constitutional: reports: No Symptoms Eyes: reports: No Symptoms HENT: reports: No Symptoms Neck: reports: No Symptoms Cardiovascular: reports: No Symptoms Respiratory: reports: No Symptoms Gastrointestinal: reports: No Symptoms Genitourinary: reports: No Symptoms Breasts: reports: No Symptoms Reported Musculoskeletal: reports: Muscle Weakness Integumentary: reports: No Symptoms Neurological: reports: No Symptoms, Weakness Endocrine: reports: No Symptoms Hematology/Lymphatic: reports: No Symptoms Psychiatric: reports: No Symptoms Physical Exam Vital Signs: Vital Signs Temperature 99.1 F 09/25/19 18:00 Pulse Rate 106 H 09/25/19 18:00 Respiratory Rate 19 09/25/19 18:00 Blood Pressure 123/64 09/25/19 18:00 O2 Sat by Pulse Oximetry (%) 98 09/25/19 18:00 Constitutional: Yes: Well Nourished, No Distress, Calm Eyes: Yes: WNL, Conjunctiva Clear, EOM Intact HENT: Yes: WNL, Atraumatic, Normocephalic Neck: Yes: WNL, Supple, Trachea Midline Cardiovascular: Yes: WNL, Regular Rate and Rhythm, Tachycardia, S1, S2 Respiratory: Yes: WNL, Regular, CTA Bilaterally, Diminished Gastrointestinal: Yes: Normal Bowel Sounds, Soft, Distention ...Rectal Exam: Yes: Deferred Renal/: Yes: Caal Present Breast(s): Yes: WNL Musculoskeletal: Yes: Muscle Weakness Extremities: Yes: WNL Edema: LUE: Trace, RUE: Trace, LLE: 2+, RLE: 2+ Peripheral Pulses WNL: Yes Integumentary: Yes: WNL Neurological: Yes: WNL, Alert, Oriented Psychiatric: Yes: WNL, Alert, Oriented Labs: CBC, BMP 09/25/19 00:09 Imaging - Results Chest X-ray: Image Reviewed (Personal read: RIJ HD cath in place, no p neumothorax noted No opacities noted) Ultrasound: Report Reviewed (No hydronephrosis is seen. Renal cortical echogenicity appears slightly increased bilaterally suggestive of medical renal disease. The kidneys and urinary bladder demonstrate no gross mass lesion. A post void residual urinary volume of 120 mL is noted. Prevoid volume 700 mL. Approximate prostate volume 12 mL.) EKG: Image Reviewed (Personal read: No ST elevation or depression QTc 416) Problem List - Problems (1) Kidney failure Code(s): N19 - UNSPECIFIED KIDNEY FAILURE (2) Hyperkalemia Code(s): E87.5 - HYPERKALEMIA (3) Diabetes Code(s): E11.9 - TYPE 2 DIABETES MELLITUS WITHOUT COMPLICATIONS (4) Hypertension Code(s): I10 - ESSENTIAL (PRIMARY) HYPERTENSION Assessment/Plan Acute renal injury vs CKD Hyperkalemia in setting of renal insufficiency and ARB Edema/volume overload Metabolic acidosis Anemia Hypertension DM not on insulin Cardiomyopathy, elevated troponins -Appreciate nephrology recs -S/p HD cath insertion and emergent HD -Maintain caal cath for strict I and O -Lasix 100mg IVPB daily -Hyperkalemia improved with HD -diabetic Renal low sodium/potassium diet -[facility] for hyperkalemia -Amlodipine for hypertension -Will place consult for cardiology -Monitor EKG -BGM ACHS and insulin sliding scale -Follow up on cultures Anastasiia Welch [facility] [id number]
[2019-09-25 19:19] LABS: ALBUMIN 2.9 g/dl (3.4-5.0); BILIRUBIN,DIRECT 0.1 mg/dL (0.0-0.2); BILIRUBIN,TOTAL 0.5 mg/dL (0.2-1); BLOOD UREA NITROGEN 38.9 mg/dL (7-18); CALCIUM 7.8 mg/dL (8.5-10.1); CREATININE 7.3 mg/dL (0.55-1.3); MAGNESIUM 1.6 mg/dL (1.8-2.4); PHOSPHOROUS 3.5 mg/dL (2.5-4.9); POTASSIUM 3.9 mmol/L (3.5-5.1); TOT PROT 6.4 g/dl (6.4-8.2)
--- NOTE | 2019-09-25 21:58 | PROC ---
Central Line Insertion Indication: Other (Dialysis) Risks and Benefits Explained: Yes Consent on Chart: Yes Central Line: Dialysis Cath, Tri Lumen Anesthesia: 1% Lidocaine Sterile Technique: Yes Ultrasound Guided Assistance: Yes Position: Right Internal Jugular Post Insertion: Yes: Bilateral Breath Sounds, Bilateral Chest Expansion, Chest X-Ray Ordered Sterile Dressing Applied: Yes
[2019-09-26 05:36] LABS: BASO % 0.3 % (0-2.0); EOS % 2.9 % (0-4.5); HEMATOCRIT 25.6 % (35.4-49); HEMOGLOBIN 8.4 GM/dL (11.7-16.9); LYMPH % 21.8 % (8-40); MCH 28.8 pg (25.7-33.7); MCHC 32.8 g/dl (32.0-35.9); MEAN CELL VOLUME 87.9 fl (80-96); MEAN PLT VOLUME 7.1 fl (7.5-11.1); MONO % 11.6 % (3.8-10.2); NEUT % 63.4 % (42.8-82.8); PLATELET COUNT 185 K/MM3 (134-434); RBC 2.91 M/mm3 (4.00-5.60); RDW 16.2 % (11.9-15.9); WHITE BLOOD COUNT 7.5 K/mm3 (4.0-10.0)
[2019-09-26 06:08] LABS: ALBUMIN 2.6 g/dl (3.4-5.0); BILIRUBIN,TOTAL 0.5 mg/dL (0.2-1); BLOOD UREA NITROGEN 45.5 mg/dL (7-18); CALCIUM 7.5 mg/dL (8.5-10.1); MAGNESIUM 1.5 mg/dL (1.8-2.4); PHOSPHOROUS 5.6 mg/dL (2.5-4.9); POTASSIUM 4.3 mmol/L (3.5-5.1); TOT PROT 5.7 g/dl (6.4-8.2)
[2019-09-26 06:31] LABS: CREATININE 8.1 mg/dL (0.55-1.3)
[2019-09-26] MEDS ORDERED: MAGNESIUM SULF 50% (8.12 MEQ/2 ML-1 GM VIAL) IVPB ONE (06:34)
[2019-09-26] MEDS: INSULIN SLIDING SCALE (NOVOLOG) 1 VIAL SQ SCH ×4 (06:40→22:04)
[2019-09-26] MEDS: HEPARIN NA (PORCINE) 5,000 UNITS/ML 1ML VIAL SQ SCH ×3 (06:49→22:04)
--- NOTE | 2019-09-26 07:07 | CON.CARD ---
Consult Consult Specialty:: cardiology Reason for Consultation:: dsypnea; LE swelling; syncope - History of Present Illness Chief Complaint: Pt A&Ox3; asymptomatic History of Present Illness: Mr. Vuong is a 69 year old male (b. [facility]) with a significant past medical history of HTN, DM, CHF, and renal dysfunction, who presents to the ED with 4 months of bilateral LE edema. As per patient, he presented to the ED from the [facility] secondary to receiving inadequate care. Patient also endorses one month of intermittent shortness of breath, chest pain on exertion, bilateral kidney pain and 4 episodes of syncope last week, with head injury. Denies fever, chills, headache, nausea, vomiting, or urinary changes. - History Source History Provided By: Patient, Medical Record Limitations to Obtaining History: No Limitations - Past Medical History Cardio/Vascular: Yes: CHF, HTN Renal/: Yes: Renal Inusuff Psych: Yes: Anxiety Endocrine: Yes: Diabetes Mellitus - Smoking History Smoking history: Never smoked Home Medications - Allergies Allergies/Adverse Reactions: Allergies Allergy/AdvReac Type Severity Reaction Status Date / Time Penicillins Allergy Intermediate Rash Verified 09/25/19 01:22 aspirin AdvReac Intermediate Verified 09/25/19 01:22 - Home Medications Home Medications: Ambulatory Orders Amlodipine Besylate [Norvasc -] 10 mg PO DAILY 09/27/19 Irbesartan [Avapro] 300 mg PO DAILY 09/27/19 metFORMIN HCL [Metformin HCl] 850 mg PO DAILY 09/27/19 Review of Systems - Review of Systems Constitutional: reports: Weakness Eyes: reports: No Symptoms HENT: reports: No Symptoms Neck: reports: No Symptoms Cardiovascular: reports: Shortness of Breath Respiratory: reports: SOB Gastrointestinal: reports: No Symptoms Genitourinary: reports: No Symptoms Breasts: reports: No Symptoms Reported Musculoskeletal: reports: Muscle Weakness Integumentary: reports: No Symptoms Neurological: reports: Syncope, Weakness Psychiatric: reports: Anxiety - Risk Factors Known Risk Factors: Yes: Age, Gender, Hypercholesterolemia, Hypertension, Physical Inactivity Vital Signs: Vital Signs Temperature 98.1 F 09/26/19 02:00 Pulse Rate 87 09/26/19 04:00 Respiratory Rate 15 09/26/19 04:00 Blood Pressure 142/58 L 09/26/19 04:00 O2 Sat by Pulse Oximetry (%) 95 09/26/19 04:00 Constitutional: Yes: Calm Eyes: Yes: WNL HENT: Yes: WNL Neck: Yes: WNL Respiratory: Yes: Regular Gastrointestinal: Yes: Soft Renal/: No: Anuria Heart Sounds: Yes: S1, S2, S4 Murmur: Yes: Systolic Murmur, Grade 1 Musculoskeletal: Yes: Muscle Weakness Extremities: Yes: Cool Edema: Yes Edema: LLE: 1+, RLE: 1+ Peripheral Pulses WNL: Yes Integumentary: Yes: Venous Stasis Changes Neurological: Yes: WNL Psychiatric: Yes: WNL - Other Data Labs, Other Data: CBC, BMP 09/26/19 05:20 09/26/19 05:20 INR, PTT INR 1.03 (0.83-1.09) 09/25/19 00:09 Troponin, BNP 09/25/19 09/25/19 07:43 18:54 Troponin I 0.08 H 0.40 H Troponin, BNP 09/25/19 09/25/19 07:43 18:54 Troponin I 0.08 H 0.40 H Abnormal Lab Results 09/25/19 09/25/19 09/27/19 06:00 07:43 06:23 RBC 3.16 L Hgb 9.1 L Hct 27.7 L RDW 16.0 H BUN Creatinine Random Glucose Calcium Phosphorus Total Protein Albumin PTH Intact 417 H Hepatitis A Ab Total Positive H 09/27/19 09/27/19 06:23 20:55 RBC Hgb Hct RDW BUN 52.4 H 30.1 H Creatinine 7.9 H* 5.0 H Random Glucose 116 H 245 H Calcium 8.2 L 7.5 L Phosphorus 5.9 H Total Protein 5.9 L Albumin 2.8 L PTH Intact Hepatitis A Ab Total Echo: Pending Imaging - Results Chest X-ray: Image Reviewed EKG: Image Reviewed Assessment/Plan Bilateral LE edema x several months Intermittent shortness of breath Syncope x 4 recently renal failure anemia severe hyperkalemia rhabdomyolysis HTN CHF elevated TNI EKG: NSR; ? old septal infarct Rec: Hemodialysis Correction of hyperkalemia Serial TNI and EKG; telemetry F/u lipids F/u CK serially; avoid excessive dehydration ECHO for LVEF, wall motion, valve status Orthostatic Vital signs post-dialysis CT head: no acute intracranial pathology
[2019-09-26] MEDS: amLODIPine BESYLATE 5 MG TABLET (FP) PO SCH (09:03)
[2019-09-26] MEDS: SODIUM BICARBONATE 650 MG TABLET PO SCH ×2 (09:03→22:05)
[2019-09-26] MEDS: FUROSEMIDE 100 MG/10 ML INJECTABLE VIAL IVPB SCH (09:03)
--- NOTE | 2019-09-26 09:19 | EKG ---
Test Reason : Blood Pressure : / mmHG Vent. Rate : 098 BPM Atrial Rate : 098 BPM P-R Int : 138 ms QRS Dur : 074 ms QT Int : 338 ms P-R-T Axes : 072 036 083 degrees QTc Int : 431 ms NORMAL SINUS RHYTHM POSSIBLE LEFT ATRIAL ENLARGEMENT BORDERLINE ECG WHEN COMPARED WITH ECG OF 24-SEP-2019 23:46, NO SIGNIFICANT CHANGE WAS FOUND Confirmed by Della Boyd ([id number]) on 09/26/2019 9:19:19 AM Referred By: Confirmed By:Della Boyd
--- NOTE | 2019-09-26 09:19 | EKG ---
Test Reason : Blood Pressure : / mmHG Vent. Rate : 098 BPM Atrial Rate : 098 BPM P-R Int : 140 ms QRS Dur : 076 ms QT Int : 336 ms P-R-T Axes : 067 039 094 degrees QTc Int : 428 ms NORMAL SINUS RHYTHM NONSPECIFIC T WAVE ABNORMALITY ABNORMAL ECG WHEN COMPARED WITH ECG OF 25-SEP-2019 09:39, NONSPECIFIC T WAVE ABNORMALITY, WORSE IN LATERAL LEADS Confirmed by Della Boyd ([id number]) on 09/26/2019 9:19:14 AM Referred By: Confirmed By:Della Boyd
--- NOTE | 2019-09-26 10:17 | PN ---
Progress Note, Physician History of Present Illness: Mr. Vuong is a 69 year old male ([facility]) with a significant past medical history of HTN, DM, CHF, and renal dysfunction, who presents to the ED with 4 months of bilateral LE edema. As per patient, he presented to the ED from the [facility] secondary to receiving inadequate care. Patient also endorses one month of intermittent shortness of breath, chest pain on exertion, bilateral kidney pain and 4 episodes of syncope last week, with head injury. Denies fever, chills, headache, nausea, vomiting, or urinary changes. - Current Medication List Current Medications: Active Medications Amlodipine Besylate (Norvasc -) 5 mg PO DAILY [facility] Last Admin: 09/26/19 09:03 Dose: 5 mg Documented by: Furosemide (Lasix Injection -) 100 mg IVPB DAILY [facility] Last Admin: 09/26/19 09:03 Dose: 100 mg Documented by: Heparin Sodium (Porcine) (Heparin -) 5,000 unit SQ TID [facility] Last Admin: 09/26/19 06:49 Dose: 5,000 unit Documented by: Sodium Chloride (Normal Saline -) 250 mls @ 3,000 mls/hr IV PRN PRN PRN Reason: Hypotension during Dialysis Stop: 09/26/19 11:00 Insulin Aspart (Novolog Vial Sliding Scale -) 1 vial SQ ACHS [facility]; Protocol Last Admin: 09/26/19 06:40 Dose: Not Given Documented by: Sodium Bicarbonate (Sodium Bicarbonate -) 1,300 mg PO BID [facility] Last Admin: 09/26/19 09:03 Dose: 1,300 mg Documented by: Sodium Zirconium Cyclosilicate (Lokelma) 10 gm PO DAILY [facility] Last Admin: 09/25/19 10:00 Dose: 10 gm Documented by: - Objective Vital Signs: Vital Signs Temperature 99.0 F 09/26/19 06:00 Pulse Rate 88 09/26/19 07:41 Respiratory Rate 16 09/26/19 07:41 Blood Pressure 144/66 09/26/19 07:41 O2 Sat by Pulse Oximetry (%) 99 09/26/19 09:00 Eyes: Yes: WNL, Conjunctiva Clear, EOM Intact HENT: Yes: WNL, Atraumatic, Normocephalic Neck: Yes: WNL, Supple, Trachea Midline Cardiovascular: Yes: WNL, Regular Rate and Rhythm Respiratory: Yes: Diminished Gastrointestinal: Yes: WNL, Normal Bowel Sounds Genitourinary: Yes: WNL Musculoskeletal: Yes: WNL Extremities: Yes: WNL Edema: Yes Integumentary: Yes: WNL Neurological: Yes: WNL, Alert, Oriented ...Motor Strength: WNL Psychiatric: Yes: WNL Labs: CBC, BMP 09/26/19 05:20 09/26/19 05:20 INR, PTT INR 1.03 (0.83-1.09) 09/25/19 00:09 Problem List - Problems (1) Diabetes Code(s): E11.9 - TYPE 2 DIABETES MELLITUS WITHOUT COMPLICATIONS (2) Hyperkalemia Code(s): E87.5 - HYPERKALEMIA (3) Hypertension Code(s): I10 - ESSENTIAL (PRIMARY) HYPERTENSION (4) Kidney failure Code(s): N19 - UNSPECIFIED KIDNEY FAILURE Assessment/Plan Bilateral LE edema x several months Intermittent shortness of breath Syncope x 4 recently renal failure anemia severe hyperkalemia rhabdomyolysis HTN CHF elevated TNI EKG: NSR; ? old septal infarct ECHO nl EF Rec: Hemodialysis Correction of hyperkalemia Serial TNI and EKG; telemetry F/u lipids F/u CK serially Orthostatic Vital signs post-dialysis CT head: no acuter intracranial pathology cc time spent 36 min
--- NOTE | 2019-09-26 10:52 | EKG ---
Test Reason : Blood Pressure : / mmHG Vent. Rate : 082 BPM Atrial Rate : 082 BPM P-R Int : 144 ms QRS Dur : 074 ms QT Int : 382 ms P-R-T Axes : 070 021 112 degrees QTc Int : 446 ms NORMAL SINUS RHYTHM NONSPECIFIC ST AND T WAVE ABNORMALITY ABNORMAL ECG WHEN COMPARED WITH ECG OF 25-SEP-2019 09:53, NO SIGNIFICANT CHANGE WAS FOUND Confirmed by Della Boyd ([id number]) on 09/26/2019 10:51:35 AM Referred By: Confirmed By:Della Boyd
--- NOTE | 2019-09-26 11:11 | ECHO ---
Name: ERWIN JIMENEZ Exam:Adult Echocardiogram Study Date: 09/26/2019 09:57 AM Age: 69 yrs Reason For Study: dyspnea Height: 66 in Weight: 158 lb BSA: 1.8 m2 MMode/2D Measurements & Calculations IVSd: 1.3 cm Ao root diam: 2.8 cm LVIDd: 4.2 cm LA dimension: 3.4 cm LVIDs: 2.7 cm LVPWd: 1.3 cm EDV(Teich): 80.5 ml LVOT diam: 2.0 cm ESV(Teich): 25.9 ml LAV (MOD-bp): 73.2 ml Doppler Measurements & Calculations MV E max shantel: 77.9 cm/sec Ao V2 max: 162.9 cm/sec MV A max shantel: 112.5 cm/sec Ao max P.6 mmHg MV E/A: 0.69 AI P1/2t: 387.9 msec MV dec time: 0.20 sec ANISA(V,D): 2.2 cm2 AI max shantel: 369.2 cm/sec LV V1 max P.7 mmHg AI max P.5 mmHg LV V1 max: 119.5 cm/sec AI dec slope: 278.7 cm/sec2 PA V2 max: 157.5 cm/sec PI Vmax: 134.4 cm/sec PA max P.9 mmHg Procedure Study Quality: Fair. Left Ventricle The left ventricle is normal in size. There is moderate concentric left ventricular hypertrophy. Ejec tion Fraction = 60-65%. The transmitral spectral Doppler flow pattern is suggestive of impaired LV relaxat ion. Atria The left atrium is mildly dilated. Right atrial size is normal. Mitral Valve The mitral valve is grossly normal. There is no mitral regurgitation noted. Tricuspid Valve The tricuspid valve is not well visualized, but is grossly normal. There is Trace to mild tricuspid regurgitation. Right ventricular systolic pressure is normal. Aortic Valve There is mild aortic sclerosis.;. No hemodynamically significant valvular aortic stenosis. Mild aorti c regurgitation. Pulmonic Valve The pulmonic valve leaflets are thin and pliable; valve motion is normal. Great Vessels The aortic root is normal size. Pericardium/Pleura Small pericardial effusion. Interpretation Summary LV: Normal size, mild-moderate LVH, normal systolic function, EF 60-65%, impaired relaxation RV; normal LA; Mildly dilated AV; Mild sclerosis, mild AR TV; Trace-mild Tr, normal RVSP Pericardium: Small effusion. Della Boyd 09/26/2019 11:10 AM
--- NOTE | 2019-09-26 12:10 | PN ---
Progress Note, Physician Chief Complaint: Renal failure History of Present Illness: Seen and examined at the bedside awake and alert offers no acute complaints no sob, cp, fever, chills s/p dialysis yesterday, tolerated it well making urine via caal - Current Medication List Current Medications: Active Medications Amlodipine Besylate (Norvasc -) 5 mg PO DAILY [facility] Last Admin: 09/26/19 09:03 Dose: 5 mg Documented by: Furosemide (Lasix Injection -) 100 mg IVPB DAILY [facility] Last Admin: 09/26/19 09:03 Dose: 100 mg Documented by: Heparin Sodium (Porcine) (Heparin -) 5,000 unit SQ TID [facility] Last Admin: 09/26/19 06:49 Dose: 5,000 unit Documented by: Sodium Chloride (Normal Saline -) 250 mls @ 3,000 mls/hr IV PRN PRN PRN Reason: Hypotension during Dialysis Stop: 09/26/19 11:00 Insulin Aspart (Novolog Vial Sliding Scale -) 1 vial SQ ACHS [facility]; Protocol Last Admin: 09/26/19 11:29 Dose: Not Given Documented by: Sodium Bicarbonate (Sodium Bicarbonate -) 1,300 mg PO BID [facility] Last Admin: 09/26/19 09:03 Dose: 1,300 mg Documented by: Sodium Zirconium Cyclosilicate (Lokelma) 10 gm PO DAILY [facility] Last Admin: 09/25/19 10:00 Dose: 10 gm Documented by: - Objective Vital Signs: Vital Signs Temperature 99.0 F 09/26/19 06:00 Pulse Rate 90 09/26/19 10:00 Respiratory Rate 16 09/26/19 10:00 Blood Pressure 130/50 L 09/26/19 10:00 O2 Sat by Pulse Oximetry (%) 99 09/26/19 09:00 Constitutional: Yes: No Distress Neck: Yes: Supple Cardiovascular: Yes: Regular Rate and Rhythm Respiratory: Yes: Regular Gastrointestinal: Yes: Soft Genitourinary: Yes: Caal Present Extremities: No: Cyanosis Edema: Yes Neurological: Yes: Alert, Oriented Labs: CBC, BMP 09/26/19 05:20 09/26/19 05:20 INR, PTT INR 1.03 (0.83-1.09) 09/25/19 00:09 Assessment/Plan 69 year old male with history of hypertension, non-insulin dependent DM, cardiomyopathy, and possible CKD who came from the [facility] and presented to the ED with complaints of leg swelling and syncope and found to have renal failure and hyperkalemia. 1. Acute renal injury vs CKD 2. Hyperkalemia in setting of renal insufficiency and ARB 3. Edema/volume overload 4. Metabolic acidosis 5. Anemia 6. Hypertension 7. DM not on insulin 9. Cardiomyopathy Tolerated dialysis x 1 yesterday, no acute need for [employer] today Will need renal biopsy Serologic studies pending US shows preserved kidney size w/o obstruction strict I and O Continue Lokelma and Lasix daily Can be transferred out of ICU Thank you Luiz Galdamez DO
--- NOTE | 2019-09-26 12:15 | PN ---
Progress Note (short form) - Note Progress Note: 69 yo M with HTN, DM, CHF, CKD, recent hospitalization in [place] 2 weeks ago for kidney infection, who p/w worsening b/l LE swelling as well as shortness of breath. pt admitted for acute renal failure requiring emergent dialysis and hyperkalemia to 7.7. pt was dialyzed on 09/24. pt remained hemodynamically stable. pt is symptomatically improving. pt is stable for transfer to telemetry floor. pt may get dialyzed tomorrow, 09/26 as per renal recommendations.
--- NOTE | 2019-09-26 12:15 | PN ---
Physical Exam: SUBJECTIVE: Patient seen and examined at bedside. pt states he is feeling improved, currently denies sob or cp. OBJECTIVE: Vital Signs Period Temp Pulse Resp BP Sys/Lopes Pulse Ox Last 24 Hr 97.9 F-99.1 F 83-110 12-21 91-160/50-87 95-100 GENERAL: The patient is awake, alert, and fully oriented, in no acute distress. HEAD: Normal with no signs of trauma. NECK: Trachea midline, full range of motion, supple. + hepatojugular LUNGS: Breath sounds equal, clear to auscultation bilaterally, no accessory muscle use. HEART: Regular rate and rhythm, S1, S2 ABDOMEN: Soft, nontender, nondistended, normoactive bowel sounds, no guarding EXTREMITIES: 2+ pulses, warm, well-perfused, no edema. NEUROLOGICAL: Cranial nerves II through XII grossly intact. Normal speech PSYCH: Normal mood, normal affect. SKIN: Warm, dry, normal turgor, no rashes or lesions noted CBC, BMP 09/26/19 05:20 09/26/19 05:20 Active Medications Generic Name Dose Route Start Last Admin Trade Name Freq PRN Reason Stop Dose Admin Amlodipine Besylate 5 mg 09/25/19 10:00 09/26/19 09:03 Norvasc - PO 5 mg DAILY [facility] Administration Furosemide 100 mg 09/25/19 10:00 09/26/19 09:03 Lasix Injection - IVPB 100 mg DAILY [facility] Administration Heparin Sodium (Porcine) 5,000 unit 09/25/19 06:00 09/26/19 06:49 Heparin - SQ 5,000 unit TID [facility] Administration Sodium Chloride 250 mls @ 3,000 mls/hr 09/25/19 11:00 Normal Saline - IV 09/26/19 11:00 PRN PRN Hypotension during Dialysis Insulin Aspart 1 vial 09/25/19 07:00 09/26/19 11:29 Novolog Vial Sliding Scale - SQ Not Given ACHS [facility] Protocol Sodium Bicarbonate 1,300 mg 09/25/19 10:00 09/26/19 09:03 Sodium Bicarbonate - PO 1,300 mg BID [facility] Administration Sodium Zirconium Cyclosilicate 10 gm 09/25/19 09:00 09/25/19 10:00 Lokelma PO 10 gm DAILY [facility] Administration ASSESSMENT/PLAN: 69 yo M with HTN, DM, CHF, "kidney infection" 2 weeks ago, who p/w 4 months of worsening b/l LE swelling as well as shortness of breath. pt admitted for acute renal failure requiring emergent dialysis and hyperkalemia . pt is stable for transfer neuro: no acute events. AOx3 Cardio no events noted on tele monitor monitor K c/w lasix 100 daily BNP >92751 tropinemia, 0.06--> 0.4-->0.21. cont to trend to peak. likely 2/2 demand cardio recs appreciated echo: EF 60-65% cont norvasc lipid panel reviewed Pulm no acute events. Renal Acute on chronic dialysis yesterday, possible dialysis tomorrow cont lokelma. closely monitor K Cr 13 on admission, now 8.1 monitor I/Os Will need renal biopsy Endo: ISS, BGM DVTppx: Hep SQ TID Transfer to tele Visit type - Emergency Visit Emergency Visit: No - New Patient This patient is new to me today: Yes Date on this admission: 09/26/19 - Critical Care Critical Care patient: Yes Total Critical Care Time (in minutes): 36 Critical Care Statement: The care of this patient involved high complexity decision making to prevent further life threatening deterioration of the marilee ent's condition and/or to evaluate & treat vital organ system(s) failure or risk of failure. - Discharge Referral Referred to [facility] No - Medication Review Med list reviewed for High Risk Meds patients 65 and older: Yes ATTENDING PHYSICIAN STATEMENT I saw and evaluated the patient. I reviewed the resident's note and discussed the case with the resident. I agree with the resident's findings and plan as documented. SUBJECTIVE: OBJECTIVE: ASSESSMENT AND PLAN:
[2019-09-26] MEDS ORDERED: SODIUM CHLORIDE 250 ML IV PRN (13:23)
[2019-09-26] MEDS ORDERED: PT OWN MED DRAWER 7, Y5N ONE (14:08)
--- NOTE | 2019-09-26 15:17 | PN ---
Teaching Attending Note Name of Resident: Noelle Pisano ATTENDING PHYSICIAN STATEMENT I saw and evaluated the patient. I reviewed the resident's note and discussed the case with the resident. I agree with the resident's findings and plan as documented. SUBJECTIVE: Patient seen and examined in the ICU. Awake and alert. Denies CP or SOB. Reports feeling better S/P HD. Intake & Output 09/23/19 09/24/19 09/25/19 09/26/19 23:59 23:59 23:59 23:59 Intake Total 850 200 Output Total 2450 1850 Balance -1600 -1650 Weight 158 lb 153 lb 14.122 oz 150 lb 12.739 oz Last Vital Signs Temp Pulse Resp BP Pulse Ox 98 F 78 16 162/52 L 96 09/26/19 12:00 09/26/19 13:40 09/26/19 13:40 09/26/19 13:40 09/26/19 12:00 Active Medications Amlodipine Besylate (Norvasc -) 5 mg PO DAILY [facility] Calcium Acetate (Phoslo -) 667 mg PO TIDCM [facility] Furosemide (Lasix Injection -) 100 mg IVPB DAILY [facility] Heparin Sodium (Porcine) (Heparin -) 5,000 unit SQ TID [facility] Sodium Chloride (Normal Saline -) 250 mls @ 3,000 mls/hr IV PRN PRN PRN Reason: Hypotension during Dialysis Insulin Aspart (Novolog Vial Sliding Scale -) 1 vial SQ ACHS [facility]; Protocol Sodium Bicarbonate (Sodium Bicarbonate -) 1,300 mg PO BID [facility] Sodium Zirconium Cyclosilicate (Lokelma) 10 gm PO DAILY [facility] Constitutional: Yes: Well Nourished, No Distress, Calm Eyes: Yes: WNL, Conjunctiva Clear, EOM Intact HENT: Yes: WNL, Atraumatic, Normocephalic Neck: Yes: WNL, Supple, Trachea Midline Cardiovascular: Yes: WNL, Regular Rate and Rhythm, Tachycardia, S1, S2 Respiratory: Yes: WNL, Regular, CTA Bilaterally, Diminished Gastrointestinal: Yes: Normal Bowel Sounds, Soft, Distention ...Rectal Exam: Yes: Deferred Renal/: Yes: [place] Present Breast(s): Yes: WNL Musculoskeletal: Yes: Muscle Weakness Extremities: Yes: WNL Edema: LUE: Trace, RUE: Trace, LLE: 2+, RLE: 2+ Peripheral Pulses WNL: Yes Integumentary: Yes: WNL Neurological: Yes: WNL, Alert, Oriented Psychiatric: Yes: WNL, Alert, Oriented Labs: Laboratory Results - last 24 hr 09/25/19 09/25/19 09/25/19 01:30 06:00 06:00 WBC RBC Hgb Hct MCV MCH MCHC RDW Plt Count MPV Absolute Neuts (auto) Neutrophils % Lymphocytes % Monocytes % Eosinophils % Basophils % Nucleated RBC % Sodium 141 Potassium 3.8 Chloride 105 Carbon Dioxide 29 Anion Gap 7 L BUN 39.9 H Creatinine 7.1 H Est GFR (CKD-EPI)AfAm 8.34 Est GFR (CKD-EPI)NonAf 7.20 POC Glucometer Random Glucose 218 H Hemoglobin A1c % Calcium 7.9 L Phosphorus Magnesium Total Bilirubin Direct Bilirubin AST ALT Alkaline Phosphatase Creatine Kinase Creatine Kinase Index CK-MB (CK-2) Troponin I Total Protein Albumin Triglycerides Cholesterol Total LDL Cholesterol HDL Cholesterol Syphilis Serology Non-reactive COVID-19 ([facility]) Not detected 09/25/19 09/25/19 09/25/19 17:30 18:54 22:19 WBC RBC Hgb Hct MCV MCH MCHC RDW Plt Count MPV Absolute Neuts (auto) Neutrophils % Lymphocytes % Monocytes % Eosinophils % Basophils % Nucleated RBC % Sodium 141 Potassium 3.9 Chloride 105 Carbon Dioxide 27 Anion Gap 10 BUN 38.9 H Creatinine 7.3 H Est GFR (CKD-EPI)AfAm 8.07 Est GFR (CKD-EPI)NonAf 6.96 POC Glucometer 214 219 Random Glucose 221 H Hemoglobin A1c % Calcium 7.8 L Phosphorus 3.5 Magnesium 1.6 L Total Bilirubin 0.5 Direct Bilirubin 0.1 AST 40 H ALT 51 Alkaline Phosphatase 72 Creatine Kinase 906 H Creatine Kinase Index 1.1 CK-MB (CK-2) 10.8 H Troponin I 0.40 H Total Protein 6.4 Albumin 2.9 L Triglycerides Cholesterol Total LDL Cholesterol HDL Cholesterol Syphilis Serology COVID-19 ([facility]) 09/26/19 09/26/19 09/26/19 05:20 05:20 05:20 WBC 7.5 RBC 2.91 L Hgb 8.4 L Hct 25.6 L D MCV 87.9 MCH 28.8 MCHC 32.8 RDW 16.2 H Plt Count 185 MPV 7.1 L Absolute Neuts (auto) 4.8 Neutrophils % 63.4 Lymphocytes % 21.8 Monocytes % 11.6 H Eosinophils % 2.9 Basophils % 0.3 Nucleated RBC % 0 Sodium 144 Potassium 4.3 Chloride 108 H Carbon Dioxide 27 Anion Gap 9 BUN 45.5 H Creatinine 8.1 H* Est GFR (CKD-EPI)AfAm 7.12 Est GFR (CKD-EPI)NonAf 6.14 POC Glucometer Random Glucose 90 Hemoglobin A1c % 5.7 Calcium 7.5 L Phosphorus 5.6 H Magnesium 1.5 L Total Bilirubin 0.5 Direct Bilirubin AST 30 ALT 42 Alkaline Phosphatase 62 Creatine Kinase 586 H Creatine Kinase Index 0.7 CK-MB (CK-2) 4.5 H Troponin I 0.21 H Total Protein 5.7 L Albumin 2.6 L Triglycerides 88 Cholesterol 128 Total LDL Cholesterol 68 HDL Cholesterol 45 Syphilis Serology COVID-19 ([facility]O) 09/26/19 11:27 WBC RBC Hgb Hct MCV MCH MCHC RDW Plt Count MPV Absolute Neuts (auto) Neutrophils % Lymphocytes % Monocytes % Eosinophils % Basophils % Nucleated RBC % Sodium Potassium Chloride Carbon Dioxide Anion Gap BUN Creatinine Est GFR (CKD-EPI)AfAm Est GFR (CKD-EPI)NonAf POC Glucometer 148 Random Glucose Hemoglobin A1c % Calcium Phosphorus Magnesium Total Bilirubin Direct Bilirubin AST ALT Alkaline Phosphatase Creatine Kinase Creatine Kinase Index CK-MB (CK-2) Troponin I Total Protein Albumin Triglycerides Cholesterol Total LDL Cholesterol HDL Cholesterol Syphilis Serology COVID-19 ([facility]) Imaging - Results Chest X-ray: Image Reviewed (Personal read: [facility] HD cath in place, no pneumothora x noted No opacities noted) Ultrasound: Report Reviewed (No hydronephrosis is seen. Renal cortical echogenicity appears slightly increased bilaterally suggestive of medical renal disease. The kidneys and urinary bladder demonstrate no gross mass lesion. A post void residual urinary volume of 120 mL is noted. Prevoid volume 700 mL. Approximate prostate volume 12 mL.) EKG: Image Reviewed (Personal read: No ST elevation or depression QTc 416) Problem List - Problems (1) Kidney failure Code(s): N19 - UNSPECIFIED KIDNEY FAILURE (2) Hyperkalemia Code(s): E87.5 - HYPERKALEMIA (3) Diabetes Code(s): E11.9 - TYPE 2 DIABETES MELLITUS WITHOUT COMPLICATIONS (4) Hypertension Code(s): I10 - ESSENTIAL (PRIMARY) HYPERTENSION Assessment/Plan Acute renal injury vs CKD Hyperkalemia in setting of renal insufficiency and ARB Edema/volume overload Metabolic acidosis Anemia Hypertension DM not on insulin Cardiomyopathy, elevated troponins -HD Per Renal -Strict I and O -Lasix -Follow K+ level -BGM ACHS and insulin sliding scale -Floor Dr Russell
[2019-09-26] MEDS: CALCIUM ACETATE 667 MG CAPSULE (FP) PO SCH (17:24)
[2019-09-27] MEDS: HEPARIN NA (PORCINE) 5,000 UNITS/ML 1ML VIAL SQ SCH ×2 (06:33→16:04)
[2019-09-27] MEDS: INSULIN SLIDING SCALE (NOVOLOG) 1 VIAL SQ SCH ×4 (06:34→21:38)
[2019-09-27 07:05] LABS: HEMATOCRIT 27.7 % (35.4-49); HEMOGLOBIN 9.1 GM/dL (11.7-16.9); MCH 28.9 pg (25.7-33.7); MCHC 32.9 g/dl (32.0-35.9); MEAN CELL VOLUME 87.8 fl (80-96); MEAN PLT VOLUME 7.5 fl (7.5-11.1); PLATELET COUNT 180 K/MM3 (134-434); RBC 3.16 M/mm3 (4.00-5.60); WHITE BLOOD COUNT 7.4 K/mm3 (4.0-10.0)
[2019-09-27 07:34] LABS: ALBUMIN 2.8 g/dl (3.4-5.0); BILIRUBIN,TOTAL 0.4 mg/dL (0.2-1); BLOOD UREA NITROGEN 52.4 mg/dL (7-18); CALCIUM 8.2 mg/dL (8.5-10.1); PHOSPHOROUS 5.9 mg/dL (2.5-4.9); POTASSIUM 4.2 mmol/L (3.5-5.1); TOT PROT 5.9 g/dl (6.4-8.2)
[2019-09-27] MEDS ORDERED: SODIUM CHLORIDE 250 ML IV PRN (07:56)
[2019-09-27] MEDS: CALCIUM ACETATE 667 MG CAPSULE (FP) PO SCH ×3 (08:06→18:34)
[2019-09-27 08:13] LABS: CREATININE 7.9 mg/dL (0.55-1.3)
--- NOTE | 2019-09-27 08:49 | PN ---
Teaching Attending Note Name of Resident: Nasrin Douglas ATTENDING PHYSICIAN STATEMENT I saw and evaluated the patient. I reviewed the resident's note and discussed the case with the resident. I agree with the resident's findings and plan as documented. SUBJECTIVE: Patient is feeling better OBJECTIVE: Vital Signs Temperature 98.6 F 09/27/19 06:00 Pulse Rate 71 09/27/19 06:00 Respiratory Rate 20 09/27/19 06:00 Blood Pressure 176/75 H 09/27/19 06:00 O2 Sat by Pulse Oximetry (%) 98 09/26/19 20:25 PE: per resident's note CBCD WBC 7.4 K/mm3 (4.0-10.0) 09/27/19 06:23 RBC 3.16 M/mm3 (4.00-5.60) L 09/27/19 06:23 Hgb 9.1 GM/dL (11.7-16.9) L 09/27/19 06:23 Hct 27.7 % (35.4-49) L 09/27/19 06:23 MCV 87.8 fl (80-96) 09/27/19 06:23 MCHC 32.9 g/dl (32.0-35.9) 09/27/19 06:23 RDW 16.0 % (11.9-15.9) H 09/27/19 06:23 Plt Count 180 K/MM3 (134-434) 09/27/19 06:23 MPV 7.5 fl (7.5-11.1) 09/27/19 06:23 CMP Sodium 141 mmol/L (136-145) 09/27/19 06:23 Potassium 4.2 mmol/L (3.5-5.1) 09/27/19 06:23 Chloride 104 mmol/L (98-107) 09/27/19 06:23 Carbon Dioxide 27 mmol/L (21-32) 09/27/19 06:23 Anion Gap 9 MMOL/L (8-16) 09/27/19 06:23 BUN 52.4 mg/dL (7-18) H 09/27/19 06:23 Creatinine 7.9 mg/dL (0.55-1.3) H* 09/27/19 06:23 Random Glucose 116 mg/dL (74-106) H 09/27/19 06:23 Calcium 8.2 mg/dL (8.5-10.1) L 09/27/19 06:23 Total Bilirubin 0.4 mg/dL (0.2-1) 09/27/19 06:23 AST 30 U/L (15-37) 09/27/19 06:23 ALT 39 U/L (13-61) 09/27/19 06:23 Alkaline Phosphatase 62 U/L (45-117) 09/27/19 06:23 Total Protein 5.9 g/dl (6.4-8.2) L 09/27/19 06:23 Albumin 2.8 g/dl (3.4-5.0) L 09/27/19 06:23 CARDIAC ENZYMES Creatine Kinase 586 U/L (26-308) H 09/26/19 05:20 Troponin I 0.21 ng/ml (0.00-0.05) H 09/26/19 05:20 Current Medications Generic Name Dose Route Start Last Admin Trade Name Freq PRN Reason Stop Dose Admin Amlodipine Besylate 5 mg 09/27/19 10:00 Norvasc - PO DAILY [facility] Calcium Acetate 667 mg 09/26/19 17:30 09/27/19 08:06 Phoslo - PO 667 mg TIDCM [facility] Administration Epoetin Efrem-epbx 10,000 unit 09/27/19 07:56 Retacrit IVPUSH 09/27/19 07:57 ONCE ONE Furosemide 100 mg 09/27/19 10:00 Lasix Injection - IVPB DAILY [facility] Heparin Sodium (Porcine) 5,000 unit 09/26/19 14:00 09/27/19 06:33 Heparin - SQ 5,000 unit TID [facility] Administration Sodium Chloride 250 mls @ 3,000 mls/hr 09/26/19 13:23 Normal Saline - IV PRN PRN Hypotension during Dialysis Sodium Chloride 250 mls @ 3,000 mls/hr 09/27/19 07:56 Normal Saline - IV 09/28/19 07:56 PRN PRN Hypotension during Dialysis Insulin Aspart 1 vial 09/26/19 16:30 09/27/19 06:34 Novolog Vial Sliding Scale - SQ Not Given ACHS [facility] Protocol Sodium Bicarbonate 1,300 mg 09/26/19 22:00 09/26/19 22:05 Sodium Bicarbonate - PO 1,300 mg BID [facility] Administration Sodium Zirconium Cyclosilicate 10 gm 09/27/19 10:00 Lokelma PO DAILY [facility] US/pelvic Us on 09/25/2019: No hydronephrosis, renal corical echogenicity suggestive medical renal disease. no gross lesion , post void residual volume 120ml, prevoid volume 700ml, approximate volume is 12ml. Cervical Ct : no fracture Head CT: no obvious lesion ASSESSMENT AND PLAN: This patient is a 69yo male with PMHx of hypertension, non-insulin dependent DM, cardiomyopathy, who came from the [facility] and presented to the ED with complaints of leg swelling and syncope and found to have acute renal failure with hyperkalemia. # Acute renal injury :r/o obstruction , US negative for obstruction, ATN vs CKD in setting of HTN and DM, caal for strict I and O , continue Lasix 100mg daily IV as per nephro # Hyperkalemia in setting of renal insufficiency , no arb or nellie-I , Low pota ssium , renal diet and Lokelma 10mg daily # Volume overload: due to ARF , on lasix IV continue # Metabolic acidosis, dc metformin, on oral sodium bicarb 1300mg BID, nephro on the case # Normocytic Anemia: most likely due to kidney dz # Hypertension: CCB ;amlodipine continue # T2DM not on insulin , hold metformin , SS with coverage # Cardiomyopathy: cardio dr díaz DVT Px: heparin sq hepatitis panel and HIV is pending
[2019-09-27] MEDS ORDERED: amLODIPine BESYLATE 5 MG TABLET (FP) PO SCH (10:00)
[2019-09-27] MEDS ORDERED: FUROSEMIDE 100 MG/10 ML INJECTABLE VIAL IVPB SCH (10:00)
[2019-09-27] MEDS ORDERED: SODIUM ZIRCONIUM CYCLOSILICATE (LOKELMA) 5 GM PACKET PO SCH (10:00)
[2019-09-27] MEDS ORDERED: EPOETIN ALFA-EPBX 10,000 UNIT/ML VIAL IVPUSH ONE (13:15)
[2019-09-27] MEDS ORDERED: PT OWN MED DRAWER 7, Y5N ONE (15:56)
[2019-09-27] MEDS: SODIUM BICARBONATE 650 MG TABLET PO SCH ×2 (16:06→21:38)
--- NOTE | 2019-09-27 16:10 | PN ---
Progress Note, Physician Chief Complaint: Pt A&Ox3; no chest pain or dyspnea. A cousin is visiting. History of Present Illness: Mr. Vuong is a 69 [place] old [place] [facility] [place] a significant past medical history of HTN, DM, CHF, and renal dysfunction, who presents to the ED with 4 months of bilateral LE edema. As per patient, he [place] [facility] [place] receiving inadequate care. Patient also endorses one month of intermittent shortness of breath, occasional mild sharp central chest pain on exertion lasting a few seconds, bilateral kidney pain and 4 episodes of syncope last week, with head injury. Denies fever, chills, headache, nausea, vomiting, or urinary changes. - Current Medication List Current Medications: Active Medications Amlodipine Besylate (Norvasc -) 5 mg PO DAILY [facility] Calcium Acetate (Phoslo -) 667 mg PO TIDCM [facility] Last Admin: 09/27/19 12:00 Dose: Not Given Documented by: Heparin Sodium (Porcine) (Heparin -) 5,000 unit SQ TID [facility] Last Admin: 09/27/19 06:33 Dose: 5,000 unit Documented by: Sodium Chloride (Normal Saline -) 250 mls @ 3,000 mls/hr IV PRN PRN PRN Reason: Hypotension during Dialysis Stop: 09/28/19 07:56 Insulin Aspart (Novolog Vial Sliding Scale -) 1 vial SQ ACHS [facility]; Protocol Last Admin: 09/27/19 06:34 Dose: Not Given Documented by: Sodium Bicarbonate (Sodium Bicarbonate -) 1,300 mg PO BID [facility] Last Admin: 09/26/19 22:05 Dose: 1,300 mg Documented by: Sodium Zirconium Cyclosilicate (Lokelma) 10 gm PO DAILY [facility] - Objective Vital Signs: Vital Signs Temperature 98.4 F 09/27/19 12:50 Pulse Rate 74 09/27/19 16:00 Respiratory Rate 18 09/27/19 16:00 Blood Pressure 155/52 L 09/27/19 16:00 O2 Sat by Pulse Oximetry (%) 98 09/27/19 09:00 Constitutional: Yes: Calm Eyes: Yes: WNL HENT: Yes: WNL Neck: Yes: WNL Cardiovascular: Yes: S1, S2, S4 Respiratory: Yes: WNL ...Rectal Exam: Yes: Deferred Genitourinary: No: Anuria Breast(s): Yes: WNL Musculoskeletal: Yes: Muscle Weakness Extremities: Yes: Cool Edema: Yes Edema: LLE: Trace, RLE: Trace Peripheral Pulses WNL: Yes Integumentary: Yes: WNL Neurological: Yes: WNL Psychiatric: Yes: WNL Labs: CBC, BMP 09/27/19 06:23 09/27/19 06:23 INR, PTT INR 1.03 (0.83-1.09) 09/25/19 00:09 Abnormal Lab Results 09/25/19 09/25/19 09/27/19 06:00 07:43 06:23 RBC 3.16 L Hgb 9.1 L Hct 27.7 L RDW 16.0 H BUN Creatinine Random Glucose Calcium Phosphorus Total Protein Albumin PTH Intact 417 H Hepatitis A Ab Total Positive H 09/27/19 09/27/19 06:23 20:55 RBC Hgb Hct RDW BUN 52.4 H 30.1 H Creatinine 7.9 H* 5.0 H Random Glucose 116 H 245 H Calcium 8.2 L 7.5 L Phosphorus 5.9 H Total Protein 5.9 L Albumin 2.8 L PTH Intact Hepatitis A Ab Total - ....Imaging Chest X-ray: Image Reviewed Ultrasound: Report Reviewed (ECHO) EKG: Image Reviewed Assessment/Plan Bilateral LE edema x several months Intermittent shortness of breath Syncope x 4 recently renal failure anemia severe hyperkalemia rhabdomyolysis HTN CHF elevated TNI EKG: NSR; ? old septal infarct ECHO: normal LVEF; mild-moderate LVH; small pericardial effusion Rec: For renal biopsy in am Hemodialysis per material control associate Increase amlodipine to 10 mg daily; f/u BP serially. Correction of hyperkalemia: onLokelma Cholesterol: LDL 68; HDL 45. F/u CK serially; avoid excessive dehydration (furosemide being reduced) Orthostatic Vital signs post-dialysis CT head: no acute intracranial pathology Plan for stress MIBI if coronary artery workup not done recently.
[2019-09-27] MEDS ORDERED: SENNOSIDES 8.6MG TABLET (FP) PO ONE (16:25)
--- NOTE | 2019-09-27 16:40 | PN ---
Physical Exam: SUBJECTIVE: Patient seen and examined bedside. Denies SOB, chest pain, n/v/d. No complaints over night. Has dialysis today. OBJECTIVE: Vital Signs 09/27/19 09/27/19 09/27/19 06:00 08:57 09:00 Temperature 98.6 F 98.5 F Pulse Rate 71 80 Respiratory 20 20 20 Rate Blood Pressure 176/75 H 140/70 O2 Sat by Pulse 98 98 Oximetry (%) 09/27/19 09/27/19 15:30 16:00 Temperature Pulse Rate 70 74 Respiratory 18 18 Rate Blood Pressure 150/56 L 155/52 L O2 Sat by Pulse Oximetry (%) GENERAL: The patient is awake, alert, and fully oriented, in no acute distress. HEAD: Normal with no signs of trauma. EYES: PERRL, extraocular movements intact, sclera anicteric, conjunctiva clear. No ptosis. ENT: moist mucous membranes LUNGS: Breath sounds equal, clear to auscultation bilaterally HEART: Regular rate and rhythm, S1, S2 ABDOMEN: Soft, nondistended, mild tenderness to palpation in RLQ EXTREMITIES: warm, well-perfused, no edema. Mild tenderness to palpation of right CVA : caal in place, clear yellow urine in bag NEUROLOGICAL: Normal speech PSYCH: Normal mood, normal affect. SKIN: Warm, dry, no rashes or lesions noted Intake & Output 09/24/19 09/25/19 09/26/19 09/27/19 23:59 23:59 23:59 23:59 Intake Total 850 200 640 Output Total 2450 1850 3500 Balance -1600 -1650 -2860 Weight 158 lb 153 lb 14.122 oz 150 lb 12.739 oz 150 lb Laboratory Results - last 24 hr 09/25/19 09/25/19 09/26/19 06:00 07:43 17:19 WBC RBC Hgb Hct MCV MCH MCHC RDW Plt Count MPV Sodium Potassium Chloride Carbon Dioxide Anion Gap BUN Creatinine Est GFR (CKD-EPI)AfAm Est GFR (CKD-EPI)NonAf POC Glucometer 168 Random Glucose Calcium Phosphorus Magnesium Total Bilirubin AST ALT Alkaline Phosphatase Total Protein Albumin PTH Intact 417 H Tot Complement (CH50) > 60 Hep A IgM Ab Confirm Negative Hep Bs Antigen Negative Hep B Core IgM Ab Negative Hepatitis C Ab (EIA) <0.1 HIV 1&2 Ag/Ab, 4th Gen Non reactive 09/26/19 09/27/19 09/27/19 22:02 06:23 06:23 WBC 7.4 RBC 3.16 L Hgb 9.1 L Hct 27.7 L MCV 87.8 MCH 28.9 MCHC 32.9 RDW 16.0 H Plt Count 180 MPV 7.5 Sodium 141 Potassium 4.2 Chloride 104 Carbon Dioxide 27 Anion Gap 9 BUN 52.4 H Creatinine 7.9 H* Est GFR (CKD-EPI)AfAm 7.33 Est GFR (CKD-EPI)NonAf 6.33 POC Glucometer 148 Random Glucose 116 H Calcium 8.2 L Phosphorus 5.9 H Magnesium 2.0 Total Bilirubin 0.4 AST 30 ALT 39 Alkaline Phosphatase 62 Total Protein 5.9 L Albumin 2.8 L PTH Intact Tot Complement (CH50) Hep A IgM Ab Confirm Hep Bs Antigen Hep B Core IgM Ab Hepatitis C Ab (EIA) HIV 1&2 Ag/Ab, 4th Gen 09/27/19 09/27/19 06:30 11:07 WBC RBC Hgb Hct MCV MCH MCHC RDW Plt Count MPV Sodium Potassium Chloride Carbon Dioxide Anion Gap BUN Creatinine Est GFR (CKD-EPI)AfAm Est GFR (CKD-EPI)NonAf POC Glucometer 102 154 Random Glucose Calcium Phosphorus Magnesium Total Bilirubin AST ALT Alkaline Phosphatase Total Protein Albumin PTH Intact Tot Complement (CH50) Hep A IgM Ab Confirm Hep Bs Antigen Hep B Core IgM Ab Hepatitis C Ab (EIA) HIV 1&2 Ag/Ab, 4th Gen Active Medications Generic Name Dose Route Start Last Admin Trade Name Freq PRN Reason Stop Dose Admin Amlodipine Besylate 5 mg 09/27/19 10:00 09/27/19 16:03 Norvasc - PO 5 mg DAILY MAT Administration Calcium Acetate 667 mg 09/26/19 17:30 09/27/19 12:00 Phoslo - PO Not Given TIDCM MAT Heparin Sodium (Porcine) 5,000 unit 09/26/19 14:00 09/27/19 16:04 Heparin - SQ 5,000 unit TID MAT Administration Sodium Chloride 250 mls @ 3,000 mls/hr 09/27/19 07:56 Normal Saline - IV 09/28/19 07:56 PRN PRN Hypotension during Dialysis Insulin Aspart 1 vial 09/26/19 16:30 09/27/19 12:00 Novolog Vial Sliding Scale - SQ Not Given ACHS MAT Protocol Sodium Bicarbonate 1,300 mg 09/26/19 22:00 09/27/19 16:06 Sodium Bicarbonate - PO 1,300 mg BID MAT Administration Sodium Zirconium Cyclosilicate 10 gm 09/27/19 10:00 09/27/19 16:03 Lokelma PO 10 gm DAILY MAT Administration ASSESSMENT/PLAN: Pt is a 69 y/o male with HTN, DM, CHF, "kidney infection" 2 weeks ago (states he was not given medication for this), who presents with 4 months of worsening BL LE swelling, SOB & syncope. He was admitted for dyspnea, went to ICU for acute renal failure requiring emergent dialysis. Patient transferred to tele. CKD w/metabolic acidosis - nephrology following (Dr. Galdamez) strict I&O sodium bicarb daily Continue Lokelma and Lasix daily renal biopsy - GFR 6.3 - Dialysis today Dyspnea 2/2 volume overload, 2/2 acute CHF, 2/2 possible Cardiomyopathy - Cardiology following (Dr. Badillo) - Echo: LV - mild-moderate LVH, normal systolic function, EF 60-65%, impaired relaxation. Small pericardium effusion. LA mildly dilated, RV normal. - Lasix held today b/c dialysis, restart tomorrow Hyperkalemia - dialysis today - continue lokelma - follow up BMP after dialysis Anemia: likely 2/2 CKD - hgb/hct stable - EPO given 09/26 - continue to monitor DM -SSI -BGMs DVT Ppx heparin TID FEN - DM & NA controlled diet - hyperkalemia (lokelma) - no IV fluids Visit type - Emergency Visit Emergency Visit: Yes ED Registration Date: 09/25/19 Care time: The patient presented to the Emergency Department on the above date and was hospitalized for further evaluation of their emergent condition. - New Patient This patient is new to me today: Yes Date on this admission: 09/25/19 - Critical Care Critical Care patient: No - Discharge Referral Referred to [facility] Med P.C.: No - Medication Review Med list reviewed for High Risk Meds patients 65 and older: Yes ATTENDING PHYSICIAN STATEMENT I saw and evaluated the patient. I reviewed the resident's note and discussed the case with the resident. I agree with the resident's findings and plan as documented. SUBJECTIVE: OBJECTIVE: ASSESSMENT AND PLAN:
--- NOTE | 2019-09-27 17:23 | PN ---
Progress Note, Physician Chief Complaint: Renal failure History of Present Illness: Seen and examined at the bedside awake and alert offers no acute complaints s/p dialysis AM with 1L UF making urine biopsy deferred to tomorrow because he got heparin SC - Current Medication List Current Medications: Active Medications Amlodipine Besylate (Norvasc -) 5 mg PO DAILY [facility] Last Admin: 09/27/19 16:03 Dose: 5 mg Documented by: Calcium Acetate (Phoslo -) 667 mg PO TIDCM [facility] Last Admin: 09/27/19 12:00 Dose: Not Given Documented by: Docusate Sodium (Colace -) 100 mg PO DAILY [facility] Furosemide (Lasix Injection -) 100 mg IVPB DAILY [facility] Sodium Chloride (Normal Saline -) 250 mls @ 3,000 mls/hr IV PRN PRN PRN Reason: Hypotension during Dialysis Stop: 09/28/19 07:56 Insulin Aspart (Novolog Vial Sliding Scale -) 1 vial SQ ACHS [facility]; Protocol Last Admin: 09/27/19 12:00 Dose: Not Given Documented by: Polyethylene Glycol (Miralax (For Daily Use) -) 17 gm PO DAILY [facility] Sodium Bicarbonate (Sodium Bicarbonate -) 1,300 mg PO BID [facility] Last Admin: 09/27/19 16:06 Dose: 1,300 mg Documented by: Sodium Zirconium Cyclosilicate (Lokelma) 10 gm PO DAILY [facility] Last Admin: 09/27/19 16:03 Dose: 10 gm Documented by: - Objective Vital Signs: Vital Signs Temperature 98.4 F 09/27/19 12:50 Pulse Rate 74 09/27/19 16:00 Respiratory Rate 18 09/27/19 16:00 Blood Pressure 155/52 L 09/27/19 16:00 O2 Sat by Pulse Oximetry (%) 98 09/27/19 09:00 Constitutional: Yes: No Distress, Calm HENT: Yes: Atraumatic Neck: Yes: Supple Cardiovascular: Yes: Regular Rate and Rhythm Respiratory: Yes: CTA Bilaterally Gastrointestinal: Yes: Soft Extremities: No: Cyanosis Edema: No Neurological: Yes: Alert, Oriented Labs: CBC, BMP 09/27/19 06:23 09/27/19 06:23 INR, PTT INR 1.03 (0.83-1.09) 09/25/19 00:09 Assessment/Plan 69 year old male with history of hypertension, non-insulin dependent DM, cardiomyopathy, and possible CKD who came from the [place] and presented to the ED with complaints of leg swelling and syncope and found to have renal failure and hyperkalemia. 1. Acute renal injury vs CKD 2. Hyperkalemia in setting of renal insufficiency and ARB 3. Edema/volume overload 4. Metabolic acidosis 5. Anemia 6. Hypertension 7. DM not on insulin 9. Cardiomyopathy Had 2nd dialysis session today, tolerated it well Renal biopsy planned or tomorrow NPO after midnight Hepatitis, RPR, HIV negative. ROMAIN, ANCA pending US shows preserved kidney size w/o obstruction strict I and O D.c Lasix as volume status is improved Trend renal function and electrolytes daily Thank you Luiz Galdamez DO
[2019-09-27] MEDS ORDERED: INSULIN (NOVOLOG) ASPART 100 UNITS/ML 10ML VIAL ONE (18:23)
[2019-09-27] MEDS: POLYETHYLENE GLYCOL 3350 119 GM BTL PO SCH (18:32)
[2019-09-27] MEDS: DOCUSATE SODIUM 100 MG CAPSULE (FP) PO SCH (18:33)
[2019-09-27 21:55] LABS: BLOOD UREA NITROGEN 30.1 mg/dL (7-18); CALCIUM 7.5 mg/dL (8.5-10.1); POTASSIUM 3.9 mmol/L (3.5-5.1)
[2019-09-28 06:07] LABS: HEP B CORE AB, TOT Negative (Negative)
[2019-09-28] MEDS: INSULIN SLIDING SCALE (NOVOLOG) 1 VIAL SQ SCH ×4 (06:12→22:16)
[2019-09-28 08:11] LABS: HEMATOCRIT 27.3 % (35.4-49); HEMOGLOBIN 9.1 GM/dL (11.7-16.9); MCH 29.4 pg (25.7-33.7); MCHC 33.3 g/dl (32.0-35.9); MEAN CELL VOLUME 88.1 fl (80-96); MEAN PLT VOLUME 7.8 fl (7.5-11.1); PLATELET COUNT 180 K/MM3 (134-434); RDW 15.9 % (11.9-15.9); WHITE BLOOD COUNT 8.9 K/mm3 (4.0-10.0)
[2019-09-28 08:38] LABS: ALBUMIN 2.7 g/dl (3.4-5.0); BILIRUBIN,TOTAL 0.4 mg/dL (0.2-1); BLOOD UREA NITROGEN 31.8 mg/dL (7-18); CALCIUM 8.1 mg/dL (8.5-10.1); CREATININE 5.2 mg/dL (0.55-1.3); MAGNESIUM 1.8 mg/dL (1.8-2.4); PHOSPHOROUS 4.5 mg/dL (2.5-4.9); POTASSIUM 3.8 mmol/L (3.5-5.1); TOT PROT 6.1 g/dl (6.4-8.2)
[2019-09-28] MEDS ORDERED: PT OWN MED DRAWER 7, Y5N ONE (09:20)
[2019-09-28] MEDS: amLODIPine BESYLATE 5 MG TABLET (FP) PO SCH (09:27)
--- NOTE | 2019-09-28 09:41 | PN ---
Teaching Attending Note Name of Resident: Nasrin Douglas ATTENDING PHYSICIAN STATEMENT I saw and evaluated the patient. I reviewed the resident's note and discussed the case with the resident. I agree with the resident's findings and plan as documented. SUBJECTIVE: Patient feels better , no further swelling of his LEs as per patient post dialysis OBJECTIVE: Vital Signs Temperature 98.4 F 09/28/19 06:08 Pulse Rate 70 09/28/19 06:08 Respiratory Rate 20 09/28/19 06:08 Blood Pressure 168/69 09/28/19 06:08 O2 Sat by Pulse Oximetry (%) 97 09/27/19 21:33 PE; per resident's note CBCD WBC 8.9 K/mm3 (4.0-10.0) 09/28/19 06:08 RBC 3.10 M/mm3 (4.00-5.60) L 09/28/19 06:08 Hgb 9.1 GM/dL (11.7-16.9) L 09/28/19 06:08 Hct 27.3 % (35.4-49) L 09/28/19 06:08 MCV 88.1 fl (80-96) 09/28/19 06:08 MCHC 33.3 g/dl (32.0-35.9) 09/28/19 06:08 RDW 15.9 % (11.9-15.9) 09/28/19 06:08 Plt Count 180 K/MM3 (134-434) 09/28/19 06:08 MPV 7.8 fl (7.5-11.1) 09/28/19 06:08 CMP Sodium 139 mmol/L (136-145) 09/28/19 06:08 Potassium 3.8 mmol/L (3.5-5.1) 09/28/19 06:08 Chloride 102 mmol/L (98-107) 09/28/19 06:08 Carbon Dioxide 31 mmol/L (21-32) 09/28/19 06:08 Anion Gap 7 MMOL/L (8-16) L 09/28/19 06:08 BUN 31.8 mg/dL (7-18) H 09/28/19 06:08 Creatinine 5.2 mg/dL (0.55-1.3) H 09/28/19 06:08 Random Glucose 117 mg/dL (74-106) H 09/28/19 06:08 Calcium 8.1 mg/dL (8.5-10.1) L 09/28/19 06:08 Total Bilirubin 0.4 mg/dL (0.2-1) 09/28/19 06:08 AST 42 U/L (15-37) H 09/28/19 06:08 ALT 48 U/L (13-61) 09/28/19 06:08 Alkaline Phosphatase 62 U/L (45-117) 09/28/19 06:08 Total Protein 6.1 g/dl (6.4-8.2) L 09/28/19 06:08 Albumin 2.7 g/dl (3.4-5.0) L 09/28/19 06:08 CARDIAC ENZYMES Creatine Kinase 586 U/L (26-308) H 09/26/19 05:20 Troponin I 0.21 ng/ml (0.00-0.05) H 09/26/19 05:20 Current Medications Generic Name Dose Route Start Last Admin Trade Name Los PRN Reason Stop Dose Admin Amlodipine Besylate 10 mg 09/28/19 10:00 09/28/19 09:27 Norvasc - PO 10 mg DAILY MAT Administration Calcium Acetate 667 mg 09/26/19 17:30 09/27/19 18:34 Phoslo - PO 667 mg TIDCM MAT Administration Docusate Sodium 100 mg 09/27/19 16:30 09/27/19 18:33 Colace - PO 100 mg DAILY MAT Administration Insulin Aspart 1 vial 09/26/19 16:30 09/28/19 06:12 Novolog Vial Sliding Scale - SQ Not Given ACHS [facility] Protocol Polyethylene Glycol 17 gm 09/27/19 16:30 09/27/19 18:32 Miralax (For Daily Use) - PO 17 grams DAILY MAT Administration Sodium Bicarbonate 1,300 mg 09/26/19 22:00 09/27/19 21:38 Sodium Bicarbonate - PO 1,300 mg BID MAT Administration Sodium Zirconium Cyclosilicate 10 gm 09/27/19 10:00 09/27/19 16:03 Lokelma PO 10 gm DAILY MAT Administration Home Medications Medication Instructions Recorded Amlodipine Besylate [Norvasc -] 10 mg PO DAILY 09/27/19 Irbesartan [Avapro] 300 mg PO DAILY 09/27/19 metFORMIN HCL [Metformin HCl] 850 mg PO DAILY 09/27/19 US/pelvic Us on 09/25/2019: No hydronephrosis, renal corical echogenicity suggestive medical renal disease. no gross lesion , post void residual volume 120ml, prevoid volume 700ml, approximate volume is 12ml. Cervical Ct : no fracture Head CT: no obvious lesion ASSESSMENT AND PLAN: This patient is a 69yo male with PMHx of hypertension, non-insulin dependent DM, cardiomyopathy, who came from the [facility] and presented to the ED with complaints of leg swelling and syncope and found to have acute renal failure with hyperkalemia. # Acute renal injury :r/o obstruction , US negative for obstruction, ATN vs CKD in setting of HTN and DM, caal for strict I and O , continue Lasix 100mg daily IV as per nephro # On HD now due to ESRD for unkniwn reason : s/p kidney bx today follow the result # Hyperkalemia in setting of renal insufficiency , no arb or nellie-I , Low potassium , renal diet and Lokelma 10mg daily # Volume overload: due to ARF , on lasix IV continue # Metabolic acidosis, dc metformin, on oral sodium bicarb 1300mg BID, nephro on the case # Normocytic Anemia: most likely due to kidney dz # Hypertension: CCB ;amlodipine continue # T2DM not on insulin , hold metformin , SS with coverage # Cardiomyopathy: cardio dr díaz DVT Px: heparin sq hepatitis panel is negative, HIV is pending
[2019-09-28] MEDS ORDERED: FUROSEMIDE 100 MG/10 ML INJECTABLE VIAL IVPB SCH (10:00)
--- NOTE | 2019-09-28 10:57 | PN ---
Progress Note, Physician History of Present Illness: Mr. Vuong is a 69 year old male (. [facility]) with a significant past medical history of HTN, DM, CHF, and renal dysfunction, who presents to the ED with 4 months of bilateral LE edema. As per patient, he presented to the ED from the [facility] secondary to receiving inadequate care. Patient also endorses one month of intermittent shortness of breath, chest pain on exertion, bilateral kidney pain and 4 episodes of syncope last week, with head injury. Denies fever, chills, headache, nausea, vomiting, or urinary changes. - Current Medication List Current Medications: Active Medications Amlodipine Besylate (Norvasc -) 10 mg PO DAILY [facility] Last Admin: 09/28/19 09:27 Dose: 10 mg Documented by: Calcium Acetate (Phoslo -) 667 mg PO TIDCM [facility] Last Admin: 09/27/19 18:34 Dose: 667 mg Documented by: Docusate Sodium (Colace -) 100 mg PO DAILY [facility] Last Admin: 09/27/19 18:33 Dose: 100 mg Documented by: Insulin Aspart (Novolog Vial Sliding Scale -) 1 vial SQ [facility]; Protocol Last Admin: 09/28/19 06:12 Dose: Not Given Documented by: Polyethylene Glycol (Miralax (For Daily Use) -) 17 gm PO DAILY [facility] Last Admin: 09/27/19 18:32 Dose: 17 grams Documented by: Sodium Bicarbonate (Sodium Bicarbonate -) 1,300 mg PO BID [facility] Last Admin: 09/27/19 21:38 Dose: 1,300 mg Documented by: Sodium Zirconium Cyclosilicate (Lokelma) 10 gm PO DAILY [facility] Last Admin: 09/27/19 16:03 Dose: 10 gm Documented by: - Objective Vital Signs: Vital Signs Temperature 98.4 F 09/28/19 06:08 Pulse Rate 72 09/28/19 10:52 Respiratory Rate 18 09/28/19 10:52 Blood Pressure 170/93 09/28/19 10:52 O2 Sat by Pulse Oximetry (%) 100 09/28/19 10:52 Eyes: Yes: WNL, Conjunctiva Clear, EOM Intact HENT: Yes: WNL, Atraumatic, Normocephalic Neck: Yes: WNL, Supple, Trachea Midline Cardiovascular: Yes: WNL, Regular Rate and Rhythm Respiratory: Yes: WNL, Regular, CTA Bilaterally Gastrointestinal: Yes: WNL, Normal Bowel Sounds Genitourinary: Yes: WNL Musculoskeletal: Yes: WNL Extremities: Yes: WNL Edema: Yes Integumentary: Yes: WNL Neurological: Yes: WNL, Alert, Oriented ...Motor Strength: WNL Psychiatric: Yes: WNL Labs: CBC, BMP 09/28/19 06:08 09/28/19 06:08 INR, PTT INR 1.03 (0.83-1.09) 09/25/19 00:09 Problem List - Problems (1) Diabetes Code(s): E11.9 - TYPE 2 DIABETES MELLITUS WITHOUT COMPLICATIONS (2) Hyperkalemia Code(s): E87.5 - HYPERKALEMIA (3) Hypertension Code(s): I10 - ESSENTIAL (PRIMARY) HYPERTENSION (4) Kidney failure Code(s): N19 - UNSPECIFIED KIDNEY FAILURE Assessment/Plan Bilateral LE edema x several months Intermittent shortness of breath Syncope x 4 recently renal failure anemia severe hyperkalemia rhabdomyolysis HTN CHF elevated TNI EKG: NSR; ? 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 Correction of hyperkalemia: onLokelma Cholesterol: LDL 68; HDL 45. F/u CK serially; avoid excessive dehydration (furosemide being reduced) Orthostatic Vital signs post-dialysis CT head: no acute intracranial pathology Plan for stress MIBI if coronary artery workup not done recently.
--- NOTE | 2019-09-28 12:39 | PN ---
Physical Exam: SUBJECTIVE: Patient seen and examined bedside. NPO for biopsy today. Denies any chest pain, SOB, n/v/d. Feels tired since dialysis yesterday. Reports he has still been unable to have bowel movement. OBJECTIVE: Vital Signs 09/28/19 09/28/19 09/28/19 06:08 10:52 11:02 Temperature 98.4 F Pulse Rate 70 72 69 Pulse Rate [ Left Lower Arm] Respiratory 20 18 15 Rate Respiratory Rate [Left Lower Arm] Blood Pressure 168/69 170/93 170/70 Blood Pressure [Left Lower Arm ] O2 Sat by Pulse 100 100 Oximetry (%) O2 Sat by Pulse Oximetry (%) [ Left Lower Arm] GENERAL: The patient A&O x 3 HEAD: Normal with no signs of trauma. EYES: PERRL, extraocular movements intact, sclera anicteric, conjunctiva clear. ENT: moist mucous membranes LUNGS: Breath sounds equal, clear to auscultation bilaterally HEART: Regular rate and rhythm, S1, S2 ABDOMEN: Soft, nondistended, normal bowel sounds EXTREMITIES: warm, well-perfused, no edema. : caal in place NEUROLOGICAL: Normal speech PSYCH: Normal mood, normal affect. Intake & Output 09/25/19 09/26/19 09/27/19 09/28/19 23:59 23:59 23:59 23:59 Intake Total 850 200 940 Output Total 2450 1850 3900 200 Balance -1600 -1650 -2960 -200 Weight 153 lb 14.122 oz 150 lb 12.739 oz 150 lb 150 lb 12.8 oz Laboratory Results - last 24 hr 09/25/19 09/25/19 09/25/19 06:00 06:00 07:43 WBC RBC Hgb Hct MCV MCH MCHC RDW Plt Count MPV Sodium Potassium Chloride Carbon Dioxide Anion Gap BUN Creatinine Est GFR (CKD-EPI)AfAm Est GFR (CKD-EPI)NonAf POC Glucometer Random Glucose Calcium Phosphorus Magnesium Total Bilirubin AST ALT Alkaline Phosphatase Total Protein Albumin PTH Intact 417 H Urine Eosinophils ROMANI Screen Negative Tot Complement (CH50) > 60 Hep A IgM Ab Confirm Negative Hepatitis A Ab Total Positive H Hep Bs Antigen Negative Hep Bs Antibody Non reactive Hep B Core Total Ab Negative Hep B Core IgM Ab Negative Hepatitis Be Antibody Negative Hepatitis Be Antigen Negative Hep C Ab Diagnostic <0.1 09/25/19 09/27/1909/26/20 10:40 17:35 20:55 WBC RBC Hgb Hct MCV MCH MCHC RDW Plt Count MPV Sodium 139 Potassium 3.9 Chloride 101 Carbon Dioxide 28 Anion Gap 10 BUN 30.1 H Creatinine 5.0 H Est GFR (CKD-EPI)AfAm 12.75 Est GFR (CKD-EPI)NonAf 11.00 POC Glucometer 214 Random Glucose 245 H Calcium 7.5 L Phosphorus Magnesium Total Bilirubin AST ALT Alkaline Phosphatase Total Protein Albumin PTH Intact Urine Eosinophils None seen ROMAIN Screen Tot Complement (CH50) Hep A IgM Ab Confirm Hepatitis A Ab Total Hep Bs Antigen Hep Bs Antibody Hep B Core Total Ab Hep B Core IgM Ab Hepatitis Be Antibody Hepatitis Be Antigen Hep C Ab Diagnostic 09/27/19 09/28/19 09/28/19 21:19 05:58 06:08 WBC 8.9 RBC 3.10 L Hgb 9.1 L Hct 27.3 L MCV 88.1 MCH 29.4 MCHC 33.3 RDW 15.9 Plt Count 180 MPV 7.8 Sodium Potassium Chloride Carbon Dioxide Anion Gap BUN Creatinine Est GFR (CKD-EPI)AfAm Est GFR (CKD-EPI)NonAf POC Glucometer 215 115 Random Glucose Calcium Phosphorus Magnesium Total Bilirubin AST ALT Alkaline Phosphatase Total Protein Albumin PTH Intact Urine Eosinophils ROMAIN Screen Tot Complement (CH50) Hep A IgM Ab Confirm Hepatitis A Ab Total Hep Bs Antigen Hep Bs Antibody Hep B Core Total Ab Hep B Core IgM Ab Hepatitis Be Antibody Hepatitis Be Antigen Hep C Ab Diagnostic 09/28/19 06:08 WBC RBC Hgb Hct MCV MCH MCHC RDW Plt Count MPV Sodium 139 Potassium 3.8 Chloride 102 Carbon Dioxide 31 Anion Gap 7 L BUN 31.8 H Creatinine 5.2 H Est GFR (CKD-EPI)AfAm 12.16 Est GFR (CKD-EPI)NonAf 10.49 POC Glucometer Random Glucose 117 H Calcium 8.1 L Phosphorus 4.5 Magnesium 1.8 Total Bilirubin 0.4 AST 42 H ALT 48 Alkaline Phosphatase 62 Total Protein 6.1 L Albumin 2.7 L PTH Intact Urine Eosinophils ROMAIN Screen Tot Complement (CH50) Hep A IgM Ab Confirm Hepatitis A Ab Total Hep Bs Antigen Hep Bs Antibody Hep B Core Total Ab Hep B Core IgM Ab Hepatitis Be Antibody Hepatitis Be Antigen Hep C Ab Diagnostic Active Medications Generic Name Dose Route Start Last Admin Trade Name Freq PRN Reason Stop Dose Admin Amlodipine Besylate 10 mg 09/28/19 10:00 09/28/19 09:27 Norvasc - PO 10 mg DAILY MAT Administration Calcium Acetate 667 mg 09/26/19 17:30 09/27/19 18:34 Phoslo - PO 667 mg TIDCM MAT Administration Docusate Sodium 100 mg 09/27/19 16:30 09/27/19 18:33 Colace - PO 100 mg DAILY MAT Administration Insulin Aspart 1 vial 09/26/19 16:30 09/28/19 06:12 Novolog Vial Sliding Scale - SQ Not Given ACHS [facility] Protocol Polyethylene Glycol 17 gm 09/27/19 16:30 09/27/19 18:32 Miralax (For Daily Use) - PO 17 grams DAILY MAT Administration Sodium Bicarbonate 1,300 mg 09/26/19 22:00 09/27/19 21:38 Sodium Bicarbonate - PO 1,300 mg BID MAT Administration Sodium Zirconium Cyclosilicate 10 gm 09/27/19 10:00 09/27/19 16:03 Lokelma PO 10 gm DAILY MAT Administration ASSESSMENT/PLAN: Pt is a 69 y/o male with HTN, DM, CHF, "kidney infection" 2 weeks ago (states he was not given medication for this), who presents with 4 months of worsening BL LE swelling, SOB & syncope. He was admitted for dyspnea, went to ICU for acute renal failure requiring emergent dialysis. Patient transferred to [facility]. CKD w/metabolic acidosis - nephrology following (Dr. 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 Badillo) Increase amlodipine to 10 mg daily F/u CK serially; avoid excessive dehydration - Echo: LV - mild-moderate LVH, normal systolic function, EF 60-65%, impaired relaxation. Small pericardium effusion. LA mildly dilated, RV normal. Hyperkalemia - continue [facility] - follow up BMP after dialysis Constipation - gave 2 senna last night with no effect - started docusate 100 mg today & Miralax daily Anemia: likely 2/2 CKD - hgb/hct stable - EPO given 09/26 - continue to monitor DM -SSI -BGMs DVT Ppx - heparin TID - Held for Biopsy/restart after FEN - DM & NA controlled diet - hyperkalemia (lokelma) - no IV fluids Dispo - spoke to case specialist, Nephro will let us know if patient needs assisted HD tomorrow. If so, will set up for dialysis after discharge. - PT eval for home vs [facility] - follow up outpatient for renal biopsy results Visit type - Emergency Visit Emergency Visit: No - New Patient This patient is new to me today: No - Critical Care Critical Care patient: No - Discharge Referral Referred to [facility] Med P.C.: No - Medication Review Med list reviewed for High Risk Meds patients 65 and older: Yes ATTENDING PHYSICIAN STATEMENT I saw and evaluated the patient. I reviewed the resident's note and discussed the case with the resident. I agree with the resident's findings and plan as documented. SUBJECTIVE: OBJECTIVE: ASSESSMENT AND PLAN:
--- NOTE | 2019-09-28 12:39 | PN ---
Progress Note, Physician Chief Complaint: Renal failure History of Present Illness: Seen and examined at the bedside awake and alert offers no acute complaints s/p renal biopsy this am no flank pain no gross hematuria making urine via caal - Current Medication List Current Medications: Active Medications Amlodipine Besylate (Norvasc -) 10 mg PO DAILY [facility] Last Admin: 09/28/19 09:27 Dose: 10 mg Documented by: Calcium Acetate (Phoslo -) 667 mg PO TIDCM [facility] Last Admin: 09/27/19 18:34 Dose: 667 mg Documented by: Docusate Sodium (Colace -) 100 mg PO DAILY [facility] Last Admin: 09/27/19 18:33 Dose: 100 mg Documented by: Insulin Aspart (Novolog Vial Sliding Scale -) 1 vial SQ [facility]; Protocol Last Admin: 09/28/19 06:12 Dose: Not Given Documented by: Polyethylene Glycol (Miralax (For Daily Use) -) 17 gm PO DAILY [facility] Last Admin: 09/27/19 18:32 Dose: 17 grams Documented by: Sodium Bicarbonate (Sodium Bicarbonate -) 1,300 mg PO BID [facility] Last Admin: 09/27/19 21:38 Dose: 1,300 mg Documented by: - Objective Vital Signs: Vital Signs Temperature 98.4 F 09/28/19 06:08 Pulse Rate 71 09/28/19 11:29 Respiratory Rate 17 09/28/19 11:29 Blood Pressure 158/70 09/28/19 11:29 O2 Sat by Pulse Oximetry (%) 100 09/28/19 11:29 Constitutional: Yes: No Distress, Calm HENT: Yes: Atraumatic Neck: Yes: Supple Cardiovascular: Yes: Regular Rate and Rhythm Respiratory: Yes: Regular Gastrointestinal: Yes: Soft Extremities: No: Cyanosis Edema: No Labs: CBC, BMP 09/28/19 06:08 09/28/19 06:08 INR, PTT INR 1.03 (0.83-1.09) 09/25/19 00:09 Assessment/Plan 69 year old male with history of hypertension, non-insulin dependent DM, cardiomyopathy, and possible CKD who came from the [place] and presented to the ED with complaints of leg swelling and syncope and found to have renal failure and hyperkalemia. 1. Acute renal injury vs CKD 2. Hyperkalemia in setting of renal insufficiency and ARB 3. Edema/volume overload 4. Metabolic acidosis 5. Anemia 6. Hypertension 7. DM not on insulin 9. Cardiomyopathy Serum Cr remains elevated Pt is non-oliguric and has good urine output Had 2nd dialysis session yesterday Anticipate preliminary biopsy results by tomorrow or Daren ROMAIN, Hepatitis, RPR, HIV negative. ANCA pending US shows preserved kidney size w/o obstruction strict I and O d/c lokelma d/c caal Trend renal function and electrolytes daily Thank you Luiz Galdamez DO
[2019-09-28] MEDS: DOCUSATE SODIUM 100 MG CAPSULE (FP) PO SCH (13:00)
[2019-09-28] MEDS: CALCIUM ACETATE 667 MG CAPSULE (FP) PO SCH (13:00)
[2019-09-28] MEDS: SODIUM BICARBONATE 650 MG TABLET PO SCH ×2 (13:00→21:24)
[2019-09-28] MEDS: POLYETHYLENE GLYCOL 3350 119 GM BTL PO SCH (13:01)
[2019-09-28 17:07] LABS: ATYPICAL pANCA <1:20 titer (Neg:<1:20); C-ANCA <1:20 titer (Neg:<1:20)
[2019-09-28] MEDS: HEPARIN NA (PORCINE) 5,000 UNITS/ML 1ML VIAL SQ SCH (21:24)
[2019-09-29] MEDS: HEPARIN NA (PORCINE) 5,000 UNITS/ML 1ML VIAL SQ SCH ×3 (05:52→21:10)
[2019-09-29] MEDS: INSULIN SLIDING SCALE (NOVOLOG) 1 VIAL SQ SCH ×4 (06:07→21:10)
[2019-09-29 07:26] LABS: HEMATOCRIT 27.6 % (35.4-49); HEMOGLOBIN 9.2 GM/dL (11.7-16.9); MCH 29.3 pg (25.7-33.7); MCHC 33.2 g/dl (32.0-35.9); MEAN CELL VOLUME 88.3 fl (80-96); MEAN PLT VOLUME 7.8 fl (7.5-11.1); PLATELET COUNT 168 K/MM3 (134-434); RBC 3.13 M/mm3 (4.00-5.60); RDW 15.5 % (11.9-15.9); WHITE BLOOD COUNT 8.3 K/mm3 (4.0-10.0)
[2019-09-29 07:41] LABS: BLOOD UREA NITROGEN 42.5 mg/dL (7-18); CALCIUM 8.3 mg/dL (8.5-10.1); CREATININE 6.2 mg/dL (0.55-1.3); MAGNESIUM 1.7 mg/dL (1.8-2.4); PHOSPHOROUS 4.6 mg/dL (2.5-4.9); POTASSIUM 4.3 mmol/L (3.5-5.1)
[2019-09-29] MEDS: CALCIUM ACETATE 667 MG CAPSULE (FP) PO SCH ×4 (07:43→17:16)
[2019-09-29] MEDS ORDERED: MAGNESIUM OXIDE 400 MG TABLET (FP) PO ONE (08:31)
[2019-09-29] MEDS: SODIUM BICARBONATE 650 MG TABLET PO SCH ×2 (09:22→21:10)
[2019-09-29] MEDS: POLYETHYLENE GLYCOL 3350 119 GM BTL PO SCH (09:23)
[2019-09-29] MEDS: amLODIPine BESYLATE 5 MG TABLET (FP) PO SCH (09:23)
[2019-09-29] MEDS: DOCUSATE SODIUM 100 MG CAPSULE (FP) PO SCH (09:23)
[2019-09-29] MEDS ORDERED: EPOETIN ALFA-EPBX 10,000 UNIT/ML VIAL IVPUSH ONE (11:38)
[2019-09-29] MEDS ORDERED: SODIUM CHLORIDE 250 ML IV PRN ×2 (11:38)
--- NOTE | 2019-09-29 14:16 | PN ---
Physical Exam: SUBJECTIVE: Patient seen and examined bedside, in no distress. No events overnight. Denies any chest pain, SOB, urinary retention, dysuria or hematuria. Denies n/v/d. OBJECTIVE: Vital Signs Temp 98.5 F 09/29/19 08:49 Pulse 74 09/29/19 08:49 Resp 20 09/29/19 08:49 BP 177/75 H 09/29/19 08:49 Pulse Ox 95 09/29/19 08:49 Intake & Output 09/26/19 09/27/19 09/28/19 09/29/19 23:59 23:59 23:59 23:59 Intake Total 200 940 300 120 Output Total 1850 3900 1500 400 Balance -1650 -2960 -1200 -280 Weight 150 lb 12.739 oz 150 lb 150 lb 12.8 oz 149 lb 12.8 oz GENERAL: The patient A&O x 3 HEAD: Normal with no signs of trauma. EYES: PERRL, extraocular movements intact, conjunctiva clear. ENT: moist mucous membranes LUNGS: Breath sounds equal, CTA BL HEART: Regular rate and rhythm, S1, S2 ABDOMEN: Soft, nondistended, nontender, normal bowel sounds EXTREMITIES: warm, well-perfused, no edema. : caal removed yesterday NEUROLOGICAL: Normal speech PSYCH: Normal mood, normal affect. Laboratory Results - last 24 hr 09/25/19 09/28/19 09/28/19 06:00 17:05 22:13 WBC RBC Hgb Hct MCV MCH MCHC RDW Plt Count MPV Sodium Potassium Chloride Carbon Dioxide Anion Gap BUN Creatinine Est GFR (CKD-EPI)AfAm Est GFR (CKD-EPI)NonAf POC Glucometer 258 214 Random Glucose Calcium Phosphorus Magnesium Creatine Kinase Creatine Kinase Index CK-MB (CK-2) Troponin I c-ANCA <1:20 Proteinase 3 (PR3) <3.5 p-ANCA <1:20 Atypical p-ANCA <1:20 Myeloperoxidase Ab <9.0 09/29/19 09/29/19 09/29/19 05:49 06:05 06:05 WBC 8.3 RBC 3.13 L Hgb 9.2 L Hct 27.6 L MCV 88.3 MCH 29.3 MCHC 33.2 RDW 15.5 Plt Count 168 MPV 7.8 Sodium 141 Potassium 4.3 Chloride 102 Carbon Dioxide 29 Anion Gap 10 BUN 42.5 H Creatinine 6.2 H Est GFR (CKD-EPI)AfAm 9.83 Est GFR (CKD-EPI)NonAf 8.48 POC Glucometer 134 Random Glucose 133 H Calcium 8.3 L Phosphorus 4.6 Magnesium 1.7 L Creatine Kinase Creatine Kinase Index CK-MB (CK-2) Troponin I c-ANCA Proteinase 3 (PR3) p-ANCA Atypical p-ANCA Myeloperoxidase Ab 09/29/19 09/29/19 09/29/19 06:05 06:05 10:45 WBC RBC Hgb Hct MCV MCH MCHC RDW Plt Count MPV Sodium Potassium Chloride Carbon Dioxide Anion Gap BUN Creatinine Est GFR (CKD-EPI)AfAm Est GFR (CKD-EPI)NonAf POC Glucometer 224 Random Glucose Calcium Phosphorus Magnesium Creatine Kinase 418 H Creatine Kinase Index 0.6 CK-MB (CK-2) 2.3 2.34 Troponin I 0.07 H c-ANCA Proteinase 3 (PR3) p-ANCA Atypical p-ANCA Myeloperoxidase Ab Active Medications Generic Name Dose Route Start Last Admin Trade Name Vinhq PRN Reason Stop Dose Admin Amlodipine Besylate 10 mg 09/28/19 10:00 09/29/19 09:23 Norvasc - PO 10 mg DAILY MAT Administration Calcium Acetate 667 mg 09/26/19 17:30 09/29/19 11:07 Phoslo - PO 667 mg TIDCM MAT Administration Docusate Sodium 100 mg 09/27/19 16:30 09/29/19 09:23 Colace - PO 100 mg DAILY MAT Administration Heparin Sodium (Porcine) 5,000 unit 09/28/19 22:00 09/29/19 05:52 Heparin - SQ 5,000 unit TID MAT Administration Sodium Chloride 250 mls @ 3,000 mls/hr 09/29/19 11:38 Normal Saline - IV 09/30/19 11:38 PRN PRN Hypotension during Dialysis Sodium Chloride 250 mls @ 3,000 mls/hr 09/29/19 11:38 Normal Saline - IV 09/30/19 11:39 PRN PRN Hypotension during Dialysis Insulin Aspart 1 vial 09/26/19 16:30 09/29/19 10:48 Novolog Vial Sliding Scale - SQ 4 units ACHS MAT Administration Protocol Polyethylene Glycol 17 gm 09/27/19 16:30 09/29/19 09:23 Miralax (For Daily Use) - PO 17 grams DAILY MAT Administration Sodium Bicarbonate 1,300 mg 09/26/19 22:00 09/29/19 09:22 Sodium Bicarbonate - PO 1,300 mg BID MAT Administration ASSESSMENT/PLAN: Pt is a 69 y/o male with HTN, DM, CHF, "kidney infection" 2 weeks ago (states he was not given medication for this), who presents with 4 months of worsening BL LE swelling, SOB & syncope. He was admitted for dyspnea, went to ICU for acute renal failure requiring emergent dialysis. [facility] CKD w/metabolic acidosis - nephrology following (Dr. Galdamez) strict I&O sodium bicarb daily renal biopsy results pending - will need to continue HD 3 days a week while inpatient - HD today - plan for permacath tomorrow Dyspnea 2/2 volume overload, 2/2 acute CHF, 2/2 possible Cardiomyopathy - Cardiology following (Dr. 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 Clinical packet faxed to [facility]. Pt for permacath placement, will forward info to [facility] when available. Visit type - Emergency Visit Emergency Visit: Yes ED Registration Date: 09/25/19 Care time: The patient presented to the Emergency Department on the above date and was hospitalized for further evaluation of their emergent condition. - New Patient This patient is new to me today: No - Critical Care Critical Care patient: No - Discharge Referral Referred to [facility] No - Medication Review Med list reviewed for High Risk Meds patients 65 and older: Yes ATTENDING PHYSICIAN STATEMENT I saw and evaluated the patient. I reviewed the resident's note and discussed the case with the resident. I agree with the resident's findings and plan as documented. SUBJECTIVE: OBJECTIVE: ASSESSMENT AND PLAN:
--- NOTE | 2019-09-29 14:36 | PN ---
Progress Note, Physician Chief Complaint: Renal failure History of Present Illness: Seen and examined at the bedside awake and alert offers no acute complaints Denies any pain at his kidney biopsy site. Denies seeing any gross hematuria. Is making urine without difficulty. Denies any shortness of breath, chest pain, abdominal pain, nausea, vomiting or diarrhea For dialysis today. - Current Medication List Current Medications: Active Medications Amlodipine Besylate (Norvasc -) 10 mg PO DAILY [facility] Last Admin: 09/29/19 09:23 Dose: 10 mg Documented by: Calcium Acetate (Phoslo -) 667 mg PO TIDCM [facility] Last Admin: 09/29/19 11:07 Dose: 667 mg Documented by: Docusate Sodium (Colace -) 100 mg PO DAILY [facility] Last Admin: 09/29/19 09:23 Dose: 100 mg Documented by: Heparin Sodium (Porcine) (Heparin -) 5,000 unit SQ TID [facility] Last Admin: 09/29/19 05:52 Dose: 5,000 unit Documented by: Sodium Chloride (Normal Saline -) 250 mls @ 3,000 mls/hr IV PRN PRN PRN Reason: Hypotension during Dialysis Stop: 09/30/19 11:38 Sodium Chloride (Normal Saline -) 250 mls @ 3,000 mls/hr IV PRN PRN PRN Reason: Hypotension during Dialysis Stop: 09/30/19 11:39 Insulin Aspart (Novolog Vial Sliding Scale -) 1 vial SQ [facility]; Protocol Last Admin: 09/29/19 10:48 Dose: 4 units Documented by: Polyethylene Glycol (Miralax (For Daily Use) -) 17 gm PO DAILY [facility] Last Admin: 09/29/19 09:23 Dose: 17 grams Documented by: Sodium Bicarbonate (Sodium Bicarbonate -) 1,300 mg PO BID [facility] Last Admin: 09/29/19 09:22 Dose: 1,300 mg Documented by: - Objective Vital Signs: Vital Signs Temperature 98.5 F 09/29/19 08:49 Pulse Rate 74 09/29/19 08:49 Respiratory Rate 20 09/29/19 08:49 Blood Pressure 177/75 H 09/29/19 08:49 O2 Sat by Pulse Oximetry (%) 95 09/29/19 08:49 Constitutional: Yes: No Distress HENT: Yes: Atraumatic Neck: Yes: Supple Respiratory: Yes: Regular Gastrointestinal: Yes: Soft. No: Tenderness Extremities: No: Cyanosis Edema: No Neurological: Yes: Alert, Oriented Labs: CBC, BMP 09/29/19 06:05 09/29/19 06:05 INR, PTT INR 1.03 (0.83-1.09) 09/25/19 00:09 Assessment/Plan 69 year old male with history of hypertension, non-insulin dependent DM, cardiomyopathy, and possible CKD who came from the [place] and presented to the ED with complaints of leg swelling and syncope and found to have renal failure and hyperkalemia. 1. Acute renal injury vs progressive CKD requiring dialysis. 2. Hyperkalemia in setting of renal insufficiency and ARB 3. Edema/volume overload 4. Metabolic acidosis 5. Anemia 6. Hypertension 7. DM not on insulin 9. Cardiomyopathy Noted that the creatinine is trending up post dialysis indicating a lack of renal function recovery at this time. All serological studies including ROMAIN, ANCA, hepatitis, HIV, RPR, CH 50 all negative. Anticipate preliminary biopsy results either this afternoon or by tomorrow. Given lack of renal recovery at this point in time will likely need dialysis for the near future. We will request vascular surgery evaluation for Permcath placement. Further access planning and placement can be done once biopsy results are final. Continue renal diet. Will give SOPHIE during dialysis for anemia management. Trend renal function electrodes daily while inpatient. We will maintain patient on 3 times weekly dialysis schedule while inpatient. Thank you Luiz Galdamez DO
--- NOTE | 2019-09-29 15:45 | SPA.PREOP ---
- PRE-OP NOTE Dx: Acute renal injury vs progressive CKD requiring dialysis. Planned Procedure: Permacath placement Surgeon: Malachi Abnormal Lab Results 09/29/19 09/29/19 09/29/19 06:05 06:05 06:05 RBC 3.13 L Hgb 9.2 L Hct 27.6 L BUN 42.5 H Creatinine 6.2 H Random Glucose 133 H Calcium 8.3 L Magnesium 1.7 L Creatine Kinase 418 H Troponin I 0.07 H Last Vital Signs Temp Pulse Resp BP Pulse Ox 98.4 F 72 18 152/60 95 09/29/19 12:30 09/29/19 14:40 09/29/19 14:40 09/29/19 14:40 09/29/19 08:49 Lab Results WBC 8.3 K/mm3 (4.0-10.0) 09/29/19 06:05 RBC 3.13 M/mm3 (4.00-5.60) L 09/29/19 06:05 Hgb 9.2 GM/dL (11.7-16.9) L 09/29/19 06:05 Hct 27.6 % (35.4-49) L 09/29/19 06:05 MCV 88.3 fl (80-96) 09/29/19 06:05 MCHC 33.2 g/dl (32.0-35.9) 09/29/19 06:05 RDW 15.5 % (11.9-15.9) 09/29/19 06:05 Plt Count 168 K/MM3 (134-434) 09/29/19 06:05 INR 1.03 (0.83-1.09) 09/25/19 00:09 Sodium 141 mmol/L (136-145) 09/29/19 06:05 Potassium 4.3 mmol/L (3.5-5.1) 09/29/19 06:05 Chloride 102 mmol/L (98-107) 09/29/19 06:05 Carbon Dioxide 29 mmol/L (21-32) 09/29/19 06:05 Anion Gap 10 MMOL/L (8-16) 09/29/19 06:05 BUN 42.5 mg/dL (7-18) H 09/29/19 06:05 Creatinine 6.2 mg/dL (0.55-1.3) H 09/29/19 06:05 Random Glucose 133 mg/dL (74-106) H 09/29/19 06:05 Calcium 8.3 mg/dL (8.5-10.1) L 09/29/19 06:05 Problem List - Problems (1) Kidney failure Assessment/Plan: Patient with JAQUELINE in the setting of CKD in need of access for dialysis 1. Make NPO after midnight except po meds 2. GI/DVT PPX 3. Medical optimization / clearance 4. Consent to be obtained by surgeon after risks, benefits and alternatives discussed with patient and or Health Care Proxy. Code(s): N19 - UNSPECIFIED KIDNEY FAILURE Qualifiers: Renal failure chronicity: acute on chronic
--- NOTE | 2019-09-29 18:06 | PN ---
Progress Note, Physician Chief Complaint: Pt A&Ox3; felt tired after hemodialysis; after eating, felt nauseous.Says he is urinating well. History of Present Illness: Mr. Vuong is a 69 year old male (b. [facility]) with a significant past medical history of HTN, DM, CHF, and renal dysfunction, who presents to the ED with 4 months of bilateral LE edema. As per patient, he presented to the ED from the [facility] secondary to receiving inadequate care. Patient also endorses one month of intermittent shortness of breath, occasional mild sharp central chest pain on exertion lasting a few seconds, bilateral kidney pain and 4 episodes of syncope last week, with head injury. Denies fever, chills, headache, nausea, vomiting, or urinary changes. - Current Medication List Current Medications: Active Medications Amlodipine Besylate (Norvasc -) 10 mg PO DAILY [facility] Last Admin: 09/29/19 09:23 Dose: 10 mg Documented by: Calcium Acetate (Phoslo -) 667 mg PO TIDCM [facility] Last Admin: 09/29/19 17:16 Dose: Not Given Documented by: Docusate Sodium (Colace -) 100 mg PO DAILY [facility] Last Admin: 09/29/19 09:23 Dose: 100 mg Documented by: Heparin Sodium (Porcine) (Heparin -) 5,000 unit SQ TID [facility] Last Admin: 09/29/19 16:44 Dose: 5,000 unit Documented by: Sodium Chloride (Normal Saline -) 250 mls @ 3,000 mls/hr IV PRN PRN PRN Reason: Hypotension during Dialysis Stop: 09/30/19 11:38 Sodium Chloride (Normal Saline -) 250 mls @ 3,000 mls/hr IV PRN PRN PRN Reason: Hypotension during Dialysis Stop: 09/30/19 11:39 Insulin Aspart (Novolog Vial Sliding Scale -) 1 vial SQ ACHS [facility]; Protocol Last Admin: 09/29/19 16:54 Dose: 4 units Documented by: Polyethylene Glycol (Miralax (For Daily Use) -) 17 gm PO DAILY [facility] Last Admin: 09/29/19 09:23 Dose: 17 grams Documented by: Sodium Bicarbonate (Sodium Bicarbonate -) 1,300 mg PO BID [facility] Last Admin: 09/29/19 09:22 Dose: 1,300 mg Documented by: - Objective Vital Signs: Vital Signs Temperature 98.3 F 09/29/19 17:00 Pulse Rate 98 H 09/29/19 17:00 Respiratory Rate 20 09/29/19 17:00 Blood Pressure 145/66 09/29/19 17:00 O2 Sat by Pulse Oximetry (%) 95 09/29/19 08:49 Constitutional: Yes: Calm Eyes: Yes: WNL HENT: Yes: WNL Neck: Yes: Other (RIJ cath) Cardiovascular: Yes: Regular Rate and Rhythm Respiratory: Yes: WNL Gastrointestinal: Yes: Soft, Distention. No: Tenderness ...Rectal Exam: Yes: Deferred Genitourinary: No: Anuria Musculoskeletal: Yes: Muscle Weakness Extremities: Yes: Cool Edema: No Peripheral Pulses WNL: Yes Integumentary: Yes: Other (RIJ cath) Wound/Incision: Yes: Dressing Dry and Intact Neurological: Yes: WNL Psychiatric: Yes: WNL Labs: CBC, BMP 09/29/19 06:05 09/29/19 06:05 INR, PTT INR 1.03 (0.83-1.09) 09/25/19 00:09 Abnormal Lab Results 09/29/19 09/29/19 09/29/19 06:05 06:05 06:05 RBC 3.13 L Hgb 9.2 L Hct 27.6 L BUN 42.5 H Creatinine 6.2 H Random Glucose 133 H Calcium 8.3 L Magnesium 1.7 L Creatine Kinase 418 H Troponin I 0.07 H - ....Imaging Chest X-ray: Image Reviewed EKG: Image Reviewed Assessment/Plan Bilateral LE edema x several months Intermittent shortness of breath Syncope x 4 recently renal failure anemia severe hyperkalemia rhabdomyolysis HTN CHF elevated TNI EKG: NSR; ? old septal infarct ECHO: normal LVEF; mild-moderate LVH; small pericardial effusion Rec: s/p renal biopsy; await results. 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 Increased amlodipine to 10 mg daily; add hydralazine; f/u BP serially. Corrected hyperkalemia: off Lokelma Cholesterol: LDL 68; HDL 45. CK decreasing; (furosemide discontinued). Orthostatic Vital signs post-dialysis CT head: no acute intracranial pathology Plan for stress MIBI if coronary artery workup not done recently.
--- NOTE | 2019-09-29 18:12 | PN ---
Teaching Attending Note Name of Resident: Nasrin Douglas ATTENDING PHYSICIAN STATEMENT I saw and evaluated the patient. I reviewed the resident's note and discussed the case with the resident. I agree with the resident's findings and plan as documented. SUBJECTIVE: Patient is comfortable with no ACUTE distress, no shortness of breath. OBJECTIVE: Vital Signs Temperature 98.3 F 09/29/19 17:00 Pulse Rate 98 H 09/29/19 17:00 Respiratory Rate 20 09/29/19 17:00 Blood Pressure 145/66 09/29/19 17:00 O2 Sat by Pulse Oximetry (%) 95 09/29/19 08:49 PE; per resident's note CBCD WBC 8.3 K/mm3 (4.0-10.0) 09/29/19 06:05 RBC 3.13 M/mm3 (4.00-5.60) L 09/29/19 06:05 Hgb 9.2 GM/dL (11.7-16.9) L 09/29/19 06:05 Hct 27.6 % (35.4-49) L 09/29/19 06:05 MCV 88.3 fl (80-96) 09/29/19 06:05 MCHC 33.2 g/dl (32.0-35.9) 09/29/19 06:05 RDW 15.5 % (11.9-15.9) 09/29/19 06:05 Plt Count 168 K/MM3 (134-434) 09/29/19 06:05 MPV 7.8 fl (7.5-11.1) 09/29/19 06:05 CMP Sodium 141 mmol/L (136-145) 09/29/19 06:05 Potassium 4.3 mmol/L (3.5-5.1) 09/29/19 06:05 Chloride 102 mmol/L (98-107) 09/29/19 06:05 Carbon Dioxide 29 mmol/L (21-32) 09/29/19 06:05 Anion Gap 10 MMOL/L (8-16) 09/29/19 06:05 BUN 42.5 mg/dL (7-18) H 09/29/19 06:05 Creatinine 6.2 mg/dL (0.55-1.3) H 09/29/19 06:05 Random Glucose 133 mg/dL (74-106) H 09/29/19 06:05 Calcium 8.3 mg/dL (8.5-10.1) L 09/29/19 06:05 Total Bilirubin 0.4 mg/dL (0.2-1) 09/28/19 06:08 AST 42 U/L (15-37) H 09/28/19 06:08 ALT 48 U/L (13-61) 09/28/19 06:08 Alkaline Phosphatase 62 U/L (45-117) 09/28/19 06:08 Total Protein 6.1 g/dl (6.4-8.2) L 09/28/19 06:08 Albumin 2.7 g/dl (3.4-5.0) L 09/28/19 06:08 CARDIAC ENZYMES Creatine Kinase 418 U/L (26-308) H 09/29/19 06:05 Troponin I 0.07 ng/ml (0.00-0.05) H 09/29/19 06:05 Current Medications Generic Name Dose Route Start Last Admin Trade Name [place] PRN Reason Stop Dose Admin Amlodipine Besylate 10 mg 09/28/19 10:00 09/29/19 09:23 Norvasc - PO 10 mg DAILY MAT Administration Calcium Acetate 667 mg 09/26/19 17:30 09/29/19 17:16 Phoslo - PO Not Given TIDCM [facility] Docusate Sodium 100 mg 09/27/19 16:30 09/29/19 09:23 Colace - PO 100 mg DAILY MAT Administration Heparin Sodium (Porcine) 5,000 unit 09/28/19 22:00 09/29/19 16:44 Heparin - SQ 5,000 unit TID MAT Administration Sodium Chloride 250 mls @ 3,000 mls/hr 09/29/19 11:38 Normal Saline - IV 09/30/19 11:38 PRN PRN Hypotension during Dialysis Sodium Chloride 250 mls @ 3,000 mls/hr 09/29/19 11:38 Normal Saline - IV 09/30/19 11:39 PRN PRN Hypotension during Dialysis Insulin Aspart 1 vial 09/26/19 16:30 09/29/19 16:54 Novolog Vial Sliding Scale - SQ 4 units ACHS MAT Administration Protocol Polyethylene Glycol 17 gm 09/27/19 16:30 09/29/19 09:23 Miralax (For Daily Use) - PO 17 grams DAILY MAT Administration Sodium Bicarbonate 1,300 mg 09/26/19 22:00 09/29/19 09:22 Sodium Bicarbonate - PO 1,300 mg BID MAT Administration Home Medications Medication Instructions Recorded Amlodipine Besylate [Norvasc -] 10 mg PO DAILY 09/27/19 Irbesartan [Avapro] 300 mg PO DAILY 09/27/19 metFORMIN HCL [Metformin HCl] 850 mg PO DAILY 09/27/19 US/pelvic Us on 09/25/2019: No hydronephrosis, renal corical echogenicity suggestive medical renal disease. no gross lesion , post void residual volume 120ml, prevoid volume 700ml, approximate volume is 12ml. Cervical Ct : no fracture Head CT: no obvious lesion ASSESSMENT AND PLAN: This patient is a 69yo male with PMHx of hypertension, non-insulin dependent DM, cardiomyopathy, who came from the [facility] and presented to the ED with complaints of leg swelling and syncope and found to have acute renal failure with hyperkalemia. # Acute renal injury : US negative for obstruction, ATN vs CKD in setting of HTN and DM, caal for strict I and O , continue Lasix 100mg daily IV as per nephro s/p renal bx , waiting for the bx result , follow # On HD now due to ESRD for unkniwn reason : s/p kidney bx today follow the result # Hyperkalemia in setting of renal insufficiency , no arb or nellie-I , Low potassium , renal diet and Lokelma 10mg daily # Volume overload: due to ARF , on lasix IV continue # Metabolic acidosis, dc metformin, on oral sodium bicarb 1300mg BID, nephro on the case # Normocytic Anemia: most likely due to kidney dz # Hypertension: CCB ;amlodipine continue # T2DM not on insulin , hold metformin , SS with coverage # Cardiomyopathy: cardio dr díaz DVT Px: heparin sq hepatitis panel is negative, HIV is pending
[2019-09-29] MEDS: hydrALAZINE HCL 10 MG TABLET PO SCH (21:15)
[2019-09-30] MEDS: HEPARIN NA (PORCINE) 5,000 UNITS/ML 1ML VIAL SQ SCH ×3 (06:16→21:39)
[2019-09-30] MEDS: INSULIN SLIDING SCALE (NOVOLOG) 1 VIAL SQ SCH ×5 (06:16→21:44)
[2019-09-30 07:51] LABS: HEMATOCRIT 29.4 % (35.4-49); HEMOGLOBIN 9.6 GM/dL (11.7-16.9); MCH 29.4 pg (25.7-33.7); MCHC 32.7 g/dl (32.0-35.9); MEAN CELL VOLUME 89.8 fl (80-96); MEAN PLT VOLUME 8.2 fl (7.5-11.1); PLATELET COUNT 177 K/MM3 (134-434); RBC 3.27 M/mm3 (4.00-5.60); RDW 15.9 % (11.9-15.9); WHITE BLOOD COUNT 12.4 K/mm3 (4.0-10.0)
[2019-09-30] MEDS: CALCIUM ACETATE 667 MG CAPSULE (FP) PO SCH ×3 (08:00→17:18)
[2019-09-30 08:18] LABS: BLOOD UREA NITROGEN 25.8 mg/dL (7-18); CALCIUM 8.7 mg/dL (8.5-10.1); CREATININE 4.3 mg/dL (0.55-1.3); MAGNESIUM 1.9 mg/dL (1.8-2.4); PHOSPHOROUS 2.8 mg/dL (2.5-4.9); POTASSIUM 4.3 mmol/L (3.5-5.1)
--- NOTE | 2019-09-30 09:49 | PN ---
Progress Note, Physician History of Present Illness: Mr. Vuong is a 69 year old male (. [facility]) with a significant past medical history of HTN, DM, CHF, and renal dysfunction, who presents to the ED with 4 months of bilateral LE edema. As per patient, he presented to the ED from the [facility] secondary to receiving inadequate care. Patient also endorses one month of intermittent shortness of breath, chest pain on exertion, bilateral kidney pain and 4 episodes of syncope last week, with head injury. Denies fever, chills, headache, nausea, vomiting, or urinary changes. - Current Medication List Current Medications: Active Medications Amlodipine Besylate (Norvasc -) [address] [facility] Last Admin: 09/29/19 09:23 Dose: 10 mg Documented by: Calcium Acetate (Phoslo -) [address] [facility] Last Admin: 09/29/19 17:16 Dose: Not Given Documented by: Docusate Sodium (Colace -) [address] [facility] Last Admin: 09/29/19 09:23 Dose: 100 mg Documented by: Heparin Sodium (Porcine) (Heparin -) 5,[address] [facility] Last Admin: 09/30/19 06:16 Dose: Not Given Documented by: Hydralazine HCl (Apresoline -) [address] [facility] Last Admin: 09/29/19 21:15 Dose: 10 mg Documented by: Sodium Chloride (Normal Saline -) 250 mls @ 3,000 mls/hr IV PRN PRN PRN Reason: Hypotension during Dialysis Stop: 09/30/19 11:38 Sodium Chloride (Normal Saline -) 250 mls @ 3,000 mls/hr IV PRN PRN PRN Reason: Hypotension during Dialysis Stop: 09/30/19 11:39 Insulin Aspart (Novolog Vial Sliding Scale -) [address] [facility]; Protocol Last Admin: 09/30/19 06:16 Dose: Not Given Documented by: Polyethylene Glycol (Miralax (For Daily Use) -) [address] [facility] Last Admin: 09/29/19 09:23 Dose: 17 grams Documented by: Sodium Bicarbonate (Sodium Bicarbonate -) 1,[address] [facility] Last Admin: 09/29/19 21:10 Dose: 1,300 mg Documented by: - Objective Vital Signs: Vital Signs Temperature 98.3 F 09/30/19 05:00 Pulse Rate 88 09/30/19 05:00 Respiratory Rate 20 09/30/19 05:00 Blood Pressure 153/84 09/30/19 05:00 O2 Sat by Pulse Oximetry (%) 95 09/30/19 05:00 Eyes: Yes: WNL, Conjunctiva Clear, EOM Intact HENT: Yes: WNL, Atraumatic, Normocephalic Neck: Yes: WNL, Supple, Trachea Midline Cardiovascular: Yes: WNL, Regular Rate and Rhythm Respiratory: Yes: WNL, Regular, CTA Bilaterally Gastrointestinal: Yes: WNL, Normal Bowel Sounds Genitourinary: Yes: WNL Musculoskeletal: Yes: WNL Extremities: Yes: WNL Edema: No Integumentary: Yes: WNL Neurological: Yes: WNL, Alert, Oriented ...Motor Strength: WNL Psychiatric: Yes: WNL Labs: CBC, BMP 09/30/19 05:58 09/30/19 05:58 INR, PTT INR 1.03 (0.83-1.09) 09/25/19 00:09 Problem List - Problems (1) Diabetes Code(s): E11.9 - TYPE 2 DIABETES MELLITUS WITHOUT COMPLICATIONS (2) Hyperkalemia Code(s): E87.5 - HYPERKALEMIA (3) Hypertension Code(s): I10 - ESSENTIAL (PRIMARY) HYPERTENSION (4) Kidney failure Code(s): N19 - UNSPECIFIED KIDNEY FAILURE Qualifiers: Renal failure chronicity: acute on chronic Assessment/Plan Bilateral LE edema x several months Intermittent shortness of breath Syncope x 4 recently renal failure anemia severe hyperkalemia rhabdomyolysis HTN CHF elevated TNI EKG: NSR; ? old septal infarct ECHO: normal LVEF; mild-moderate LVH; small pericardial effusion Rec: s/p renal biopsy; await results. s/p Permacath in am; hemodialysis per securities counselor. Increased amlodipine to 10 mg daily; add hydralazine; f/u BP serially. Corrected hyperkalemia: off Lokelma Cholesterol: LDL 68; HDL 45. CK decreasing; (furosemide discontinued). Orthostatic Vital signs post-dialysis CT head: no acute intracranial pathology Plan for stress MIBI if coronary artery workup not done recently. BP not well controlled Coreg 6.25 BID added. If bp does not improve with HD will uptitrate the dose of Coreg and hydralazine
[2019-09-30] MEDS: SODIUM BICARBONATE 650 MG TABLET PO SCH (10:50)
[2019-09-30] MEDS: DOCUSATE SODIUM 100 MG CAPSULE (FP) PO SCH (10:50)
[2019-09-30] MEDS: hydrALAZINE HCL 10 MG TABLET PO SCH ×2 (10:50→21:37)
[2019-09-30] MEDS: POLYETHYLENE GLYCOL 3350 119 GM BTL PO SCH (10:50)
[2019-09-30] MEDS: amLODIPine BESYLATE 5 MG TABLET (FP) PO SCH (10:51)
--- NOTE | 2019-09-30 13:40 | PN ---
Physical Exam: SUBJECTIVE: Patient seen and examined bedside. Had HD yesterday, reports being tired after HD but feeling better today. NPO for permacath placement this afternoon. Denies chest pain, SOB, n/v/d, dysuria or hematuria OBJECTIVE: Vital Signs 09/30/19 05:00 Temperature 98.3 F Pulse Rate 88 Respiratory 20 Rate Blood Pressure 153/84 O2 Sat by Pulse 95 Oximetry (%) GENERAL: The patient A&O x 3 HEAD: Normal with no signs of trauma. EYES: PERRL, extraocular movements intact, conjunctiva clear. ENT: moist mucous membranes LUNGS: Breath sounds equal, CTA BL HEART: Regular rate and rhythm, S1, S2 ABDOMEN: Soft, nondistended, nontender, normal bowel sounds EXTREMITIES: warm, well-perfused, no edema. NEUROLOGICAL: Normal speech Intake & Output 09/27/19 09/28/19 09/29/19 09/30/19 23:59 23:59 23:59 23:59 Intake Total 940 300 820 Output Total 8315 1500 7076 400 Balance -7434 -1200 -6256 -400 Weight 150 lb 150 lb 12.8 oz 149 lb 151 lb Laboratory Results - last 24 hr 09/29/19 09/29/19 09/30/19 16:48 20:55 05:58 WBC 12.4 H RBC 3.27 L Hgb 9.6 L Hct 29.4 L MCV 89.8 MCH 29.4 MCHC 32.7 RDW 15.9 Plt Count 177 MPV 8.2 Sodium Potassium Chloride Carbon Dioxide Anion Gap BUN Creatinine Est GFR (CKD-EPI)AfAm Est GFR (CKD-EPI)NonAf POC Glucometer 231 208 Random Glucose Calcium Phosphorus Magnesium 09/30/19 09/30/19 05:58 06:14 WBC RBC Hgb Hct MCV MCH MCHC RDW Plt Count MPV Sodium 143 Potassium 4.3 Chloride 104 Carbon Dioxide 33 H Anion Gap 5 L BUN 25.8 H Creatinine 4.3 H Est GFR (CKD-EPI)AfAm 15.30 Est GFR (CKD-EPI)NonAf . POC Glucometer 147 Random Glucose 150 H Calcium 8.7 Phosphorus 2.8 Magnesium 1.9 Active Medications Generic Name Dose Route Start Last Admin Trade Name Freq PRN Reason Stop Dose Admin Amlodipine Besylate 10 mg 09/28/19 10:00 09/30/19 10:51 Norvasc - PO 10 mg DAILY [facility] Administration Calcium Acetate 667 mg 09/26/19 17:30 09/30/19 12:46 Phoslo - PO Not Given TIDCM [facility] Docusate Sodium 100 mg 09/27/19 16:30 09/30/19 10:50 Colace - PO Not Given DAILY [facility] Heparin Sodium (Porcine) 5,000 unit 09/28/19 22:00 09/30/19 06:16 Heparin - SQ Not Given TID [facility] Hydralazine HCl 10 mg 09/29/19 22:00 09/30/19 10:50 Apresoline - PO 10 mg BID [facility] Administration Insulin Aspart 1 vial 09/26/19 16:30 09/30/19 12:45 Novolog Vial Sliding Scale - SQ Not Given ACHS [facility] Protocol Polyethylene Glycol 17 gm 09/27/19 16:30 09/30/19 10:50 Miralax (For Daily Use) - PO Not Given DAILY [facility] Sodium Bicarbonate 1,300 mg 09/26/19 22:00 09/30/19 10:50 Sodium Bicarbonate - PO Not Given BID [facility] ASSESSMENT/PLAN: Pt is a 69 y/o male with HTN, DM, CHF, "kidney infection" 2 weeks ago (states he was not given medication for this), who presents with 4 months of worsening BL LE swelling, SOB & syncope. He was admitted for dyspnea, went to ICU for acute renal failure requiring emergent dialysis. Patient transferred to [facility]. CKD w/metabolic acidosis - nephrology following (Dr. Galdamez) strict I&O sodium bicarb daily renal biopsy results pending - HD 3 days a week - plan for permacath this afternoon Dyspnea 2/2 volume overload, 2/2 acute CHF, 2/2 possible Cardiomyopathy - Cardiology following (Dr. Badillo) amlodipine to 10 mg daily hydralazine 10 mg daily Plan for stress MIBI if coronary artery workup not done recently Hyperkalemia - corrected - follow BMPs Constipation - docusate 100 mg daily - Miralax daily Anemia: likely 2/2 CKD - hgb/hct stable - EPO on 09/26 & 09/28 - continue to monitor DM -SSI -BGMs DVT Ppx - heparin TID FEN - Renal diet - no IV fluids Dispo - [facility] Joslyn: Patient needs outpatient dialysis placement. Clinical packet faxed to [facility]. Pt for permacath placement - PT will likely be on MWF 3rd shift schedule. F/u on Medicaid eligibility as secondary insurance option as only has pt B at present. Visit type - Emergency Visit Emergency Visit: Yes ED Registration Date: 09/25/19 Care time: The patient presented to the Emergency Department on the above date and was hospitalized for further evaluation of their emergent condition. - New Patient This patient is new to me today: No - Critical Care Critical Care patient: No - Discharge Referral Referred to [facility] Med P.C.: No - Medication Review Med list reviewed for High Risk Meds patients 65 and older: Yes ATTENDING PHYSICIAN STATEMENT I saw and evaluated the patient. I reviewed the resident's note and discussed the case with the resident. I agree with the resident's findings and plan as documented. SUBJECTIVE: OBJECTIVE: ASSESSMENT AND PLAN:
[2019-09-30] MEDS ORDERED: ONDANSETRON 4 MG/2 ML VIAL IVPUSH PRN ×2 (13:51→15:28)
[2019-09-30] MEDS ORDERED: PROMETHAZINE HCL 25 MG/1 ML VIAL IVPUSH PRN ×2 (13:51→15:28)
[2019-09-30] MEDS ORDERED: MIDAZOLAM HCL 2 MG/2 ML SINGLE DOSE VIAL ONE (13:57)
[2019-09-30] MEDS ORDERED: PROPOFOL 20 ML ONE (13:57)
[2019-09-30] MEDS ORDERED: LIDOCAINE HCL/PF 2% SDV 5ML VIAL ONE (13:59)
[2019-09-30] MEDS ORDERED: SODIUM CHLORIDE 1,000 ML IV SCH ×2 (14:00→15:28)
[2019-09-30] MEDS ORDERED: HEPARIN NA (PORCINE) 5,000 UNITS/ML 1ML VIAL ONE (14:08)
[2019-09-30] MEDS ORDERED: LIDOCAINE HCL 1%, 10 MG/ML (20ML VIAL) ONE (14:08)
[2019-09-30] MEDS ORDERED: CLINDAMYCIN PHOSPHATE 600 MG/4 ML VIAL ONE (14:44)
[2019-09-30] MEDS ORDERED: CLINDAMYCIN PHOSPHATE 600 MG/4 ML VIAL IVPB ONE (14:45)
[2019-09-30] MEDS ORDERED: CLINDAMYCIN 900 MG PREMIX BAG IVPB ONE (14:45)
--- NOTE | 2019-09-30 15:11 | OP ---
Operative Note - Note: Operative Date: 09/30/19 Pre-Operative Diagnosis: ESRD Operation: Insertion of permacath. Post-Operative Diagnosis: Same as Pre-op Surgeon: Ronnie Ly Anesthesia: MAC Estimated Blood Loss (mls): 20 Operative Report Dictated: Yes
--- NOTE | 2019-09-30 17:21 | PN ---
Progress Note, Physician Chief Complaint: Renal failure History of Present Illness: Seen and examined at the bedside awake and alert offers no acute complaints Status post PermCath placement earlier today. Denies any shortness of breath, chest pain, abdominal pain, nausea, vomiting or diarrhea. Making urine.. - Current Medication List Current Medications: Active Medications Amlodipine Besylate (Norvasc -) 10 mg PO DAILY [facility] Calcium Acetate (Phoslo -) 667 mg PO TIDCM [facility] Last Admin: 09/30/19 17:18 Dose: 667 mg Documented by: Carvedilol (Coreg -) 6.25 mg PO BID [facility] Docusate Sodium (Colace -) 100 mg PO DAILY [facility] Heparin Sodium (Porcine) (Heparin -) 5,000 unit SQ TID [facility] Hydralazine HCl (Apresoline -) 10 mg PO BID [facility] Insulin Aspart (Novolog Vial Sliding Scale -) 1 vial SQ ACHS [facility]; Protocol Last Admin: 09/30/19 17:17 Dose: Not Given Documented by: Polyethylene Glycol (Miralax (For Daily Use) -) 17 gm PO DAILY [facility] Sodium Bicarbonate (Sodium Bicarbonate -) 1,300 mg PO BID [facility] - Objective Vital Signs: Vital Signs Temperature 98.4 F 09/30/19 16:50 Pulse Rate 66 09/30/19 16:50 Respiratory Rate 16 09/30/19 16:50 Blood Pressure 156/56 L 09/30/19 16:50 O2 Sat by Pulse Oximetry (%) 100 09/30/19 16:50 Constitutional: Yes: Well Nourished, No Distress HENT: Yes: Atraumatic Neck: Yes: Supple Cardiovascular: Yes: Regular Rate and Rhythm Respiratory: Yes: Regular Gastrointestinal: Yes: Soft Extremities: No: Cyanosis Edema: No Neurological: Yes: Alert, Oriented Labs: CBC, BMP 09/30/19 05:58 09/30/19 05:58 INR, PTT INR 1.03 (0.83-1.09) 09/25/19 00:09 Assessment/Plan 69 year old male with history of hypertension, non-insulin dependent DM, cardiomyopathy, and possible CKD who came from [place] and presented to the ED with complaints of leg swelling and syncope and found to have renal failure and hyperkalemia. 1. Acute renal injury vs progressive CKD requiring dialysis. 2. Hyperkalemia in setting of renal insufficiency and ARB 3. Edema/volume overload 4. Metabolic acidosis 5. Anemia 6. Hypertension 7. DM not on insulin 9. 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 Next dialysis is planned for Thursday. Will need outpatient dialysis placement, plus is already started by social work. Can discontinue oral sodium bicarbonate Continue SOPHIE with dialysis for anemia management. Thank you Luiz Galdamez DO
--- NOTE | 2019-09-30 17:52 | PN ---
Teaching Attending Note Name of Resident: Nasrin Douglas ATTENDING PHYSICIAN STATEMENT I saw and evaluated the patient. I reviewed the resident's note and discussed the case with the resident. I agree with the resident's findings and plan as documented. SUBJECTIVE: Patient has no new complains. OBJECTIVE: Vital Signs Temperature 98.3 F 09/30/19 17:19 Pulse Rate 71 09/30/19 17:19 Respiratory Rate 20 09/30/19 17:19 Blood Pressure 180/78 H 09/30/19 17:19 O2 Sat by Pulse Oximetry (%) 100 09/30/19 16:50 PE: per resident's note CBCD WBC 12.4 K/mm3 (4.0-10.0) H 09/30/19 05:58 RBC 3.27 M/mm3 (4.00-5.60) L 09/30/19 05:58 Hgb 9.6 GM/dL (11.7-16.9) L 09/30/19 05:58 Hct 29.4 % (35.4-49) L 09/30/19 05:58 MCV 89.8 fl (80-96) 09/30/19 05:58 MCHC 32.7 g/dl (32.0-35.9) 09/30/19 05:58 RDW 15.9 % (11.9-15.9) 09/30/19 05:58 Plt Count 177 K/MM3 (134-434) 09/30/19 05:58 MPV 8.2 fl (7.5-11.1) 09/30/19 05:58 CMP Sodium 143 mmol/L (136-145) 09/30/19 05:58 Potassium 4.3 mmol/L (3.5-5.1) 09/30/19 05:58 Chloride 104 mmol/L (98-107) 09/30/19 05:58 Carbon Dioxide 33 mmol/L (21-32) H 09/30/19 05:58 Anion Gap 5 MMOL/L (8-16) L 09/30/19 05:58 BUN 25.8 mg/dL (7-18) H 09/30/19 05:58 Creatinine 4.3 mg/dL (0.55-1.3) H 09/30/19 05:58 Random Glucose 150 mg/dL (74-106) H 09/30/19 05:58 Calcium 8.7 mg/dL (8.5-10.1) 09/30/19 05:58 Total Bilirubin 0.4 mg/dL (0.2-1) 09/28/19 06:08 AST 42 U/L (15-37) H 09/28/19 06:08 ALT 48 U/L (13-61) 09/28/19 06:08 Alkaline Phosphatase 62 U/L (45-117) 09/28/19 06:08 Total Protein 6.1 g/dl (6.4-8.2) L 09/28/19 06:08 Albumin 2.7 g/dl (3.4-5.0) L 09/28/19 06:08 CARDIAC ENZYMES Creatine Kinase 418 U/L (26-308) H 09/29/19 06:05 Troponin I 0.07 ng/ml (0.00-0.05) H 09/29/19 06:05 Current Medications Generic Name Dose Route Start Last Admin Trade Name Los PRN Reason Stop Dose Admin Amlodipine Besylate 10 mg 10/01/19 10:00 Norvasc - PO DAILY [facility] Calcium Acetate 667 mg 09/30/19 17:30 09/30/19 17:18 Phoslo - PO 667 mg TIDCM [facility] Administration Carvedilol 6.25 mg 09/30/19 22:00 Coreg - PO BID [facility] Docusate Sodium 100 mg 10/01/19 10:00 Colace - PO DAILY [facility] Heparin Sodium (Porcine) 5,000 unit 09/30/19 22:00 Heparin - SQ TID [facility] Hydralazine HCl 10 mg 09/30/19 22:00 Apresoline - PO BID [facility] Insulin Aspart 1 vial 09/30/19 16:30 09/30/19 17:17 Novolog Vial Sliding Scale - SQ Not Given ACHS [facility] Protocol Polyethylene Glycol 17 gm 10/01/19 10:00 Miralax (For Daily Use) - PO DAILY [facility] Sodium Bicarbonate 1,300 mg 09/30/19 22:00 Sodium Bicarbonate - PO BID [facility] Home Medications Medication Instructions Recorded Amlodipine Besylate [Norvasc -] 10 mg PO DAILY 09/27/19 Irbesartan [Avapro] 300 mg PO DAILY 09/27/19 metFORMIN HCL [Metformin HCl] 850 mg PO DAILY 09/27/19 US/pelvic Us on 09/25/2019: No hydronephrosis, renal cortical echogenicity suggestive medical renal disease. no gross lesion , post void residual volume 120ml, prevoid volume 700ml, approximate volume is 12ml. Cervical Ct : no fracture Head CT: no obvious lesion ASSESSMENT AND PLAN: This patient is a 69yo male with PMHx of hypertension, non-insulin dependent DM, cardiomyopathy, who came from the [facility] [place] and presented to the ED with complaints of leg swelling and syncope and found to have acute renal failure with hyperkalemia. # Acute renal injury : US negative for obstruction, ATN vs CKD due to HTN and DM, s/p Lasix 100mg daily IV as per nephro s/p renal bx , waiting for the bx result , follow # On HD now due to ESRD : s/p kidney bx today follow the result # Hyperkalemia in setting of renal insufficiency , no arb or nellie-I , Low po tassium , renal diet and Lokelma 10mg daily # Volume overload: due to ARF s/p lasix on HD now # Metabolic acidosis, dc metformin, on oral sodium bicarb 1300mg BID, nephro on the case # Normocytic Anemia: most likely due to kidney dz # Hypertension: CCB ;amlodipine continue # T2DM not on insulin , hold metformin , SS with coverage # Cardiomyopathy: cardio dr Storey DVT Px: heparin sq hepatitis panel is negative, HIV follow follow BX going for a perma cath today
[2019-09-30] MEDS ORDERED: SODIUM CHLORIDE 250 ML IV PRN (18:22)
[2019-09-30] MEDS: CARVEDILOL 6.25 MG TABLET (FP) PO SCH (21:38)
[2019-09-30] MEDS ORDERED: SODIUM BICARBONATE 650 MG TABLET PO SCH (22:00)
[2019-10-01] MEDS ORDERED: ACETAMINOPHEN 500 MG TABLET (FP) PO ONE (06:04)
[2019-10-01] MEDS: INSULIN SLIDING SCALE (NOVOLOG) 1 VIAL SQ SCH ×4 (06:12→21:43)
[2019-10-01] MEDS: HEPARIN NA (PORCINE) 5,000 UNITS/ML 1ML VIAL SQ SCH ×3 (06:12→21:44)
[2019-10-01 08:14] LABS: BLOOD UREA NITROGEN 39.7 mg/dL (7-18); CALCIUM 8.2 mg/dL (8.5-10.1); CREATININE 5.6 mg/dL (0.55-1.3); HEMATOCRIT 27.1 % (35.4-49); HEMOGLOBIN 8.9 GM/dL (11.7-16.9); MAGNESIUM 1.9 mg/dL (1.8-2.4); MCH 29.8 pg (25.7-33.7); MEAN CELL VOLUME 90.4 fl (80-96); MEAN PLT VOLUME 8.3 fl (7.5-11.1); PHOSPHOROUS 3.9 mg/dL (2.5-4.9); PLATELET COUNT 152 K/MM3 (134-434); POTASSIUM 4.3 mmol/L (3.5-5.1); RDW 15.8 % (11.9-15.9); WHITE BLOOD COUNT 8.3 K/mm3 (4.0-10.0)
[2019-10-01] MEDS ORDERED: PT OWN MED DRAWER 7, Y5N ONE (08:55)
[2019-10-01] MEDS: CALCIUM ACETATE 667 MG CAPSULE (FP) PO SCH ×3 (09:13→17:28)
[2019-10-01] MEDS: DOCUSATE SODIUM 100 MG CAPSULE (FP) PO SCH (09:15)
[2019-10-01] MEDS: CARVEDILOL 6.25 MG TABLET (FP) PO SCH ×2 (09:15→21:44)
[2019-10-01] MEDS: hydrALAZINE HCL 10 MG TABLET PO SCH ×2 (09:15→21:44)
[2019-10-01] MEDS: POLYETHYLENE GLYCOL 3350 119 GM BTL PO SCH (09:16)
[2019-10-01] MEDS: amLODIPine BESYLATE 5 MG TABLET (FP) PO SCH (09:48)
--- NOTE | 2019-10-01 11:29 | PN ---
Progress Note, Physician Chief Complaint: Events noted (coverage for Dr. Badillo and Corinne) Not in distress History of Present Illness: Patient was seen and examined. Awake and alert. Chart was reviewed Denies chest pain, SOB or palpitations Permacath in place for HD - Current Medication List Current Medications: Active Medications Amlodipine Besylate (Norvasc -) 10 mg PO DAILY [facility] Last Admin: 10/01/19 09:48 Dose: 10 mg Documented by: Calcium Acetate (Phoslo -) 667 mg PO TIDCM [facility] Last Admin: 10/01/19 09:13 Dose: 667 mg Documented by: Carvedilol (Coreg -) 6.25 mg PO BID [facility] Last Admin: 10/01/19 09:15 Dose: 6.25 mg Documented by: Docusate Sodium (Colace -) 100 mg PO DAILY [facility] Last Admin: 10/01/19 09:15 Dose: 100 mg Documented by: Epoetin Efrem (Procrit -) 10,000 unit IVPUSH ONCE ONE Stop: 10/01/19 06:01 Heparin Sodium (Porcine) (Heparin -) 5,000 unit SQ TID [facility] Last Admin: 10/01/19 06:12 Dose: 5,000 unit Documented by: Hydralazine HCl (Apresoline -) 10 mg PO BID [facility] Last Admin: 10/01/19 09:15 Dose: 10 mg Documented by: Sodium Chloride (Normal Saline -) 250 mls @ 3,000 mls/hr IV PRN PRN PRN Reason: Hypotension during Dialysis Stop: 10/01/19 18:23 Insulin Aspart (Novolog Vial Sliding Scale -) 1 vial SQ ACHS [facility]; Protocol Last Admin: 10/01/19 06:12 Dose: Not Given Documented by: Polyethylene Glycol (Miralax (For Daily Use) -) 17 gm PO DAILY [facility] Last Admin: 10/01/19 09:16 Dose: 17 grams Documented by: - Objective Vital Signs: Vital Signs Temperature 98.5 F 10/01/19 09:11 Pulse Rate 76 10/01/19 09:11 Respiratory Rate 18 10/01/19 09:11 Blood Pressure 160/74 10/01/19 09:11 O2 Sat by Pulse Oximetry (%) 95 10/01/19 09:11 Eyes: Yes: PERRL HENT: Yes: Atraumatic Neck: Yes: Supple Cardiovascular: Yes: Regular Rate and Rhythm, S1, S2. No: Murmur Respiratory: Yes: CTA Bilaterally Gastrointestinal: Yes: Normal Bowel Sounds, Soft. No: Tenderness Edema: No Labs: CBC, BMP 10/01/19 06:34 10/01/19 06:34 Problem List - Problems (1) ESRD (end stage renal disease) Code(s): N18.6 - END STAGE RENAL DISEASE (2) Demand ischemia Code(s): I24.8 - OTHER FORMS OF ACUTE ISCHEMIC HEART DISEASE (3) Diabetes Code(s): E11.9 - TYPE 2 DIABETES MELLITUS WITHOUT COMPLICATIONS (4) Hyperkalemia Code(s): E87.5 - HYPERKALEMIA (5) Hypertension Code(s): I10 - ESSENTIAL (PRIMARY) HYPERTENSION (6) Dyspnea Code(s): R06.00 - DYSPNEA, UNSPECIFIED Assessment/Plan 1. ESRD currently started HD 2. HTN 3. Syncope 4. CHF 5. Elevated troponin suggests demand ischemia, rule out CAD 6. Intermittent dyspnea PLAN: 1. HD as per Renal 2. Awaiting renal biopsy result 3. Trend troponin (last 0.07 on 09/29/19) 4. Continue Amlodipine 10 mg QD and Hydralazine 10 mg BID 5. Continue Carvedilol 6.25 mg BID as tolerated 6. Schedule Nuclear MPI on Thursday (Pharmacologic) 7. Consider ASA 81 mg QD 8. DVT prophylaxis Further plans are to follow Dr. Badillo to resume care Thursday Rainer Leung MD
[2019-10-01] MEDS ORDERED: EPOETIN ALFA 10,000 UNIT/1 ML VIAL IVPUSH ONE (11:45)
--- NOTE | 2019-10-01 17:16 | PN ---
Progress Note, Physician History of Present Illness: Pt seen and examined at bedside. He is tolerating HD. He denies shortness of breath. - Current Medication List Current Medications: Active Medications Amlodipine Besylate (Norvasc -) 10 mg PO DAILY [facility] Last Admin: 10/01/19 09:48 Dose: 10 mg Documented by: Calcium Acetate (Phoslo -) 667 mg PO TIDCM [facility] Last Admin: 10/01/19 11:55 Dose: 667 mg Documented by: Carvedilol (Coreg -) 6.25 mg PO BID [facility] Last Admin: 10/01/19 09:15 Dose: 6.25 mg Documented by: Docusate Sodium (Colace -) 100 mg PO DAILY [facility] Last Admin: 10/01/19 09:15 Dose: 100 mg Documented by: Heparin Sodium (Porcine) (Heparin -) 5,000 unit SQ TID [facility] Last Admin: 10/01/19 16:00 Dose: Not Given Documented by: Hydralazine HCl (Apresoline -) 10 mg PO BID [facility] Last Admin: 10/01/19 09:15 Dose: 10 mg Documented by: Sodium Chloride (Normal Saline -) 250 mls @ 3,000 mls/hr IV PRN PRN PRN Reason: Hypotension during Dialysis Stop: 10/01/19 18:23 Insulin Aspart (Novolog Vial Sliding Scale -) 1 vial SQ [facility]; Protocol Last Admin: 10/01/19 16:49 Dose: Not Given Documented by: Polyethylene Glycol (Miralax (For Daily Use) -) 17 gm PO DAILY [facility] Last Admin: 10/01/19 09:16 Dose: 17 grams Documented by: - Objective Vital Signs: Vital Signs Temperature 98.5 F 10/01/19 09:11 Pulse Rate 68 10/01/19 16:00 Respiratory Rate 18 10/01/19 16:00 Blood Pressure 160/67 10/01/19 16:00 O2 Sat by Pulse Oximetry (%) 95 10/01/19 09:11 Constitutional: Yes: Calm Eyes: Yes: Conjunctiva Clear HENT: Yes: Atraumatic Neck: Yes: Supple Cardiovascular: Yes: S1, S2 Respiratory: Yes: CTA Bilaterally Gastrointestinal: Yes: Normal Bowel Sounds, Soft Genitourinary: Yes: WNL Musculoskeletal: Yes: WNL Edema: No Neurological: Yes: Oriented Psychiatric: Yes: Oriented Labs: CBC, BMP 08/15/20 06:34 10/01/19 06:34 INR, PTT INR 1.03 (0.83-1.09) 09/25/19 00:09 Assessment/Plan Current Medications Generic Name Dose Route Start Last Admin Trade Name Los PRN Reason Stop Dose Admin Amlodipine Besylate 10 mg 10/01/19 10:00 10/01/19 09:48 Norvasc - PO 10 mg DAILY [facility] Administration Calcium Acetate 667 mg 09/30/19 17:30 10/01/19 11:55 Phoslo - PO 667 mg TIDCM [facility] Administration Carvedilol 6.25 mg 09/30/19 22:00 10/01/19 09:15 Coreg - PO 6.25 mg BID [facility] Administration Docusate Sodium 100 mg 10/01/19 10:00 10/01/19 09:15 Colace - PO 100 mg DAILY [facility] Administration Heparin Sodium (Porcine) 5,000 unit 09/30/19 22:00 10/01/19 16:00 Heparin - SQ Not Given TID [facility] Hydralazine HCl 10 mg 09/30/19 22:00 10/01/19 09:15 Apresoline - PO 10 mg BID [facility] Administration Sodium Chloride 250 mls @ 3,000 mls/hr 09/30/19 18:22 Normal Saline - IV 10/01/19 18:23 PRN PRN Hypotension during Dialysis Insulin Aspart 1 vial 09/30/19 16:30 10/01/19 16:49 Novolog Vial Sliding Scale - SQ Not Given ACHS [facility] Protocol Polyethylene Glycol 17 gm 10/01/19 10:00 10/01/19 09:16 Miralax (For Daily Use) - PO 17 grams DAILY [facility] Administration 1. CKD/ESRD 2. Hyperkalemia in setting of renal insufficiency and ARB 3. Edema/volume overload 4. Metabolic acidosis 5. Anemia 6. Hypertension 7. DM not on insulin 9. Cardiomyopathy Plan - HD today - follow up final biopsy report - pending placement in hd - cont epo - monitor hg
--- NOTE | 2019-10-01 17:58 | PN ---
Progress Note (short form) - Note Progress Note: Patient is feeling better, no acute events. Vital Signs Temperature 98.5 F 10/01/19 09:11 Pulse Rate 68 10/01/19 16:00 Respiratory Rate 18 10/01/19 16:00 Blood Pressure 160/67 10/01/19 16:00 O2 Sat by Pulse Oximetry (%) 95 10/01/19 09:11 GENERAL: The patient is awake, alert, and fully oriented, in no acute distress. HEAD: Normal with no signs of trauma. EYES: PERRL, extraocular movements intact, sclera anicteric, conjunctiva clear. ENT: Ears normal, oropharynx clear without exudates, moist mucous membranes. NECK: Trachea midline, full range of motion, supple. right neck permacath LUNGS: Breath sounds equal, clear to auscultation bilaterally, no wheezes, no crackles, no accessory muscle use. HEART: Regular rate and rhythm, S1, S2 +, CARYN 2/6 , no rub or gallop. ABDOMEN: Soft, NT,ND, normoactive bowel sounds, no guarding, no rebound, no hepatosplenomegaly, no masses. EXTREMITIES: 2+ pulses, warm, well-perfused, no edema. NEUROLOGICAL: Cranial nerves II through XII grossly intact. Normal speech, gait is stable PSYCH: Normal mood, normal affect. SKIN: Warm, dry, normal turgor, no rashes or lesions noted CBCD WBC 8.3 K/mm3 (4.0-10.0) 10/01/19 06:34 RBC 3.00 M/mm3 (4.00-5.60) L 10/01/19 06:34 Hgb 8.9 GM/dL (11.7-16.9) L 10/01/19 06:34 Hct 27.1 % (35.4-49) L 10/01/19 06:34 MCV 90.4 fl (80-96) 10/01/19 06:34 MCHC 33.0 g/dl (32.0-35.9) 10/01/19 06:34 RDW 15.8 % (11.9-15.9) 10/01/19 06:34 Plt Count 152 K/MM3 (134-434) 10/01/19 06:34 MPV 8.3 fl (7.5-11.1) 10/01/19 06:34 CMP Sodium 141 mmol/L (136-145) 10/01/19 06:34 Potassium 4.3 mmol/L (3.5-5.1) 10/01/19 06:34 Chloride 107 mmol/L (98-107) 10/01/19 06:34 Carbon Dioxide 25 mmol/L (21-32) 10/01/19 06:34 Anion Gap 9 MMOL/L (8-16) 10/01/19 06:34 BUN 39.7 mg/dL (7-18) H 10/01/19 06:34 Creatinine 5.6 mg/dL (0.55-1.3) H 10/01/19 06:34 Random Glucose 127 mg/dL (74-106) H 10/01/19 06:34 Calcium 8.2 mg/dL (8.5-10.1) L 10/01/19 06:34 Total Bilirubin 0.4 mg/dL (0.2-1) 09/28/19 06:08 AST 42 U/L (15-37) H 09/28/19 06:08 ALT 48 U/L (13-61) 09/28/19 06:08 Alkaline Phosphatase 62 U/L (45-117) 09/28/19 06:08 Total Protein 6.1 g/dl (6.4-8.2) L 09/28/19 06:08 Albumin 2.7 g/dl (3.4-5.0) L 09/28/19 06:08 CARDIAC ENZYMES Creatine Kinase 418 U/L (26-308) H 09/29/19 06:05 Troponin I 0.07 ng/ml (0.00-0.05) H 09/29/19 06:05 Current Medications Generic Name Dose Route Start Last Admin Trade Name Freq PRN Reason Stop Dose Admin Amlodipine Besylate 10 mg 10/01/19 10:00 10/01/19 09:48 Norvasc - PO 10 mg DAILY MAT Administration Calcium Acetate 667 mg 09/30/19 17:30 10/01/19 17:28 Phoslo - PO 667 mg TIDCM MAT Administration Carvedilol 6.25 mg 09/30/19 22:00 10/01/19 09:15 Coreg - PO 6.25 mg BID MAT Administration Docusate Sodium 100 mg 10/01/19 10:00 10/01/19 09:15 Colace - PO 100 mg DAILY MAT Administration Heparin Sodium (Porcine) 5,000 unit 09/30/19 22:00 10/01/19 16:00 Heparin - SQ Not Given TID MAT Hydralazine HCl 10 mg 09/30/19 22:00 10/01/19 09:15 Apresoline - PO 10 mg BID MAT Administration Sodium Chloride 250 mls @ 3,000 mls/hr 09/30/19 18:22 Normal Saline - IV 10/01/19 18:23 PRN PRN Hypotension during Dialysis Insulin Aspart 1 vial 09/30/19 16:30 10/01/19 16:49 Novolog Vial Sliding Scale - SQ Not Given ACHS [facility] Protocol Polyethylene Glycol 17 gm 10/01/19 10:00 10/01/19 09:16 Miralax (For Daily Use) - PO 17 grams DAILY MAT Administration Home Medications Medication Instructions Recorded Amlodipine Besylate [Norvasc -] 10 mg PO DAILY 09/27/19 Irbesartan [Avapro] 300 mg PO DAILY 09/27/19 metFORMIN HCL [Metformin HCl] 850 mg PO DAILY 09/27/19 US/pelvic Us on 09/25/2019: No hydronephrosis, renal cortical echogenicity suggestive medical renal disease. no gross lesion , post void residual volume 120ml, prevoid volume 700ml, approximate volume is 12ml. Cervical Ct : no fracture Head CT: no obvious lesion ASSESSMENT AND PLAN: This patient is a 69yo male with PMHx of hypertension, non-insulin dependent DM, cardiomyopathy, who came from the [facility] [place] and presented to the ED with complaints of leg swelling and syncope and found to have acute renal failure with hyperkalemia. # Acute renal injury : US negative for obstruction, ATN vs CKD due to HTN and DM, s/p Lasix 100mg daily IV as per nephro s/p renal bx , waiting for the bx result , follow # On HD now due to ESRD : s/p kidney bx today follow the result # Hyperkalemia in setting of renal insufficiency , no arb or nellie-I , Low potassium , renal diet and Lokelma 10mg daily # Volume overload: due to ARF s/p lasix on HD now # Metabolic acidosis, dc metformin, on oral sodium bicarb 1300mg BID, nephro on the case # Normocytic Anemia: most likely due to kidney dz # Hypertension: CCB ;amlodipine continue # T2DM not on insulin , hold metformin , SS with coverage # Cardiomyopathy: cardio dr Storey DVT Px: heparin sq hepatitis panel is negative, HIV follow follow BX s/p a perma cath today waiting for final bx waiting for placement for HD Visit type - Emergency Visit Emergency Visit: Yes ED Registration Date: 09/25/19 Care time: The patient presented to the Emergency Department on the above date and was hospitalized for further evaluation of their emergent condition. - New Patient This patient is new to me today: No - Critical Care Critical Care patient: No - Discharge Referral Referred to [facility] Med P.C.: No - Medication Review Med list reviewed for High Risk Meds patients 65 and older: Yes
[2019-10-02] MEDS: HEPARIN NA (PORCINE) 5,000 UNITS/ML 1ML VIAL SQ SCH ×3 (06:12→22:23)
[2019-10-02] MEDS: INSULIN SLIDING SCALE (NOVOLOG) 1 VIAL SQ SCH ×4 (06:12→22:26)
[2019-10-02] MEDS ORDERED: ACETAMINOPHEN 325 MG TABLET (FP) PO ONE (06:21)
[2019-10-02 09:04] LABS: HEMATOCRIT 26.8 % (35.4-49); HEMOGLOBIN 8.8 GM/dL (11.7-16.9); MCH 29.3 pg (25.7-33.7); MCHC 32.7 g/dl (32.0-35.9); MEAN CELL VOLUME 89.6 fl (80-96); MEAN PLT VOLUME 7.8 fl (7.5-11.1); PLATELET COUNT 159 K/MM3 (134-434); RBC 2.99 M/mm3 (4.00-5.60); RDW 15.6 % (11.9-15.9)
[2019-10-02] MEDS: DOCUSATE SODIUM 100 MG CAPSULE (FP) PO SCH (09:17)
[2019-10-02] MEDS: hydrALAZINE HCL 10 MG TABLET PO SCH ×2 (09:17→22:23)
[2019-10-02] MEDS: CALCIUM ACETATE 667 MG CAPSULE (FP) PO SCH ×3 (09:17→16:50)
[2019-10-02] MEDS: amLODIPine BESYLATE 5 MG TABLET (FP) PO SCH (09:17)
[2019-10-02] MEDS: CARVEDILOL 6.25 MG TABLET (FP) PO SCH ×2 (09:17→22:23)
[2019-10-02] MEDS: POLYETHYLENE GLYCOL 3350 119 GM BTL PO SCH (09:18)
[2019-10-02 09:46] LABS: CALCIUM 8.3 mg/dL (8.5-10.1); CREATININE 4.9 mg/dL (0.55-1.3); POTASSIUM 3.9 mmol/L (3.5-5.1)
--- NOTE | 2019-10-02 09:57 | PN ---
Progress Note, Physician Chief Complaint: Events noted (coverage for Dr. Badillo and Corinne) Not in distress History of Present Illness: Patient was seen and examined. Awake and alert. Chart was reviewed Denies chest pain, SOB or palpitations Permacath in place for HD - Current Medication List Current Medications: Active Medications Amlodipine Besylate (Norvasc -) 10 mg PO DAILY [facility] Last Admin: 10/02/19 09:17 Dose: 10 mg Documented by: Calcium Acetate (Phoslo -) 667 mg PO TIDCM [facility] Last Admin: 10/02/19 09:17 Dose: 667 mg Documented by: Carvedilol (Coreg -) 6.25 mg PO BID [facility] Last Admin: 10/02/19 09:17 Dose: 6.25 mg Documented by: Docusate Sodium (Colace -) 100 mg PO DAILY [facility] Last Admin: 10/02/19 09:17 Dose: 100 mg Documented by: Heparin Sodium (Porcine) (Heparin -) 5,000 unit SQ TID [facility] Last Admin: 10/02/19 06:12 Dose: 5,000 unit Documented by: Hydralazine HCl (Apresoline -) 10 mg PO BID [facility] Last Admin: 10/02/19 09:17 Dose: 10 mg Documented by: Insulin Aspart (Novolog Vial Sliding Scale -) 1 vial SQ [facility]; Protocol Last Admin: 10/02/19 06:12 Dose: Not Given Documented by: Polyethylene Glycol (Miralax (For Daily Use) -) 17 gm PO DAILY [facility] Last Admin: 10/02/19 09:18 Dose: 17 grams Documented by: - Objective Vital Signs: Vital Signs Temperature 98.8 F 10/02/19 01:00 Pulse Rate 78 10/02/19 05:00 Respiratory Rate 20 10/02/19 05:00 Blood Pressure 165/68 10/02/19 05:00 O2 Sat by Pulse Oximetry (%) 95 10/01/19 20:51 Eyes: Yes: PERRL HENT: Yes: Atraumatic Neck: Yes: Supple Cardiovascular: Yes: Regular Rate and Rhythm, S1, S2 Respiratory: Yes: CTA Bilaterally Gastrointestinal: Yes: Normal Bowel Sounds, Soft. No: Tenderness Edema: No Additional Findings/Remarks: - Review of Systems Constitutional: denies: Chills, Fever Cardiovascular: denies Chest Pain, denies:Shortness of Breath. denies: Palpitations Respiratory: denies SOB. denies: Cough, Hemoptysis, Orthopnea, PND Gastrointestinal: denies: Abdominal Pain, Constipation, Diarrhea, Melena, Nausea, Rectal Bleeding, Vomiting Neurological: denies: Dizziness, Headache, Seizure, Syncope Labs: CBC, BMP 10/02/19 08:52 10/02/19 08:52 Problem List - Problems (1) ESRD (end stage renal disease) Code(s): N18.6 - END STAGE RENAL DISEASE (2) Demand ischemia Code(s): I24.8 - OTHER FORMS OF ACUTE ISCHEMIC HEART DISEASE (3) Diabetes Code(s): E11.9 - TYPE 2 DIABETES MELLITUS WITHOUT COMPLICATIONS (4) Hyperkalemia Code(s): E87.5 - HYPERKALEMIA (5) Hypertension Code(s): I10 - ESSENTIAL (PRIMARY) HYPERTENSION (6) Dyspnea Code(s): R06.00 - DYSPNEA, UNSPECIFIED Assessment/Plan 1. ESRD currently started HD 2. HTN 3. Syncope 4. CHF 5. Elevated troponin suggests demand ischemia, rule out CAD 6. Intermittent dyspnea PLAN: 1. HD as per Renal 2. Awaiting renal biopsy result 3. Trend troponin (last 0.07 on 09/29/19) 4. Continue Amlodipine 10 mg QD and Hydralazine 10 mg BID 5. Continue Carvedilol 6.25 mg BID as tolerated 6. Schedule Nuclear MPI on Thursday (Pharmacologic) 7. Consider ASA 81 mg QD 8. DVT prophylaxis Further plans are to follow Dr. Badillo to resume care Thursday Rainer Leung MD
--- NOTE | 2019-10-02 12:31 | PN ---
Progress Note, Physician History of Present Illness: Pt seen and examined at bedside. He is awake and alert. He denies shortness of breath. - Current Medication List Current Medications: Active Medications Amlodipine Besylate (Norvasc -) 10 mg PO DAILY [facility] Last Admin: 10/02/19 09:17 Dose: 10 mg Documented by: Calcium Acetate (Phoslo -) 667 mg PO TIDCM [facility] Last Admin: 10/02/19 09:17 Dose: 667 mg Documented by: Carvedilol (Coreg -) 6.25 mg PO BID [facility] Last Admin: 10/02/19 09:17 Dose: 6.25 mg Documented by: Docusate Sodium (Colace -) 100 mg PO DAILY [facility] Last Admin: 10/02/19 09:17 Dose: 100 mg Documented by: Heparin Sodium (Porcine) (Heparin -) 5,000 unit SQ TID [facility] Last Admin: 10/02/19 06:12 Dose: 5,000 unit Documented by: Hydralazine HCl (Apresoline -) 10 mg PO BID [facility] Last Admin: 10/02/19 09:17 Dose: 10 mg Documented by: Insulin Aspart (Novolog Vial Sliding Scale -) 1 vial SQ [facility]; Protocol Last Admin: 10/02/19 11:26 Dose: 4 units Documented by: Polyethylene Glycol (Miralax (For Daily Use) -) 17 gm PO DAILY [facility] Last Admin: 10/02/19 09:18 Dose: 17 grams Documented by: - Objective Vital Signs: Vital Signs Temperature 98.5 F 10/02/19 09:00 Pulse Rate 72 10/02/19 09:00 Respiratory Rate 20 10/02/19 09:00 Blood Pressure 174/65 H 10/02/19 09:00 O2 Sat by Pulse Oximetry (%) 96 10/02/19 09:00 Constitutional: Yes: Calm Eyes: Yes: Conjunctiva Clear HENT: Yes: Atraumatic Neck: Yes: Supple Cardiovascular: Yes: S1, S2 Respiratory: Yes: CTA Bilaterally Gastrointestinal: Yes: Soft Musculoskeletal: Yes: WNL Edema: No Integumentary: Yes: WNL Neurological: Yes: Oriented Psychiatric: Yes: Oriented Labs: CBC, BMP 10/02/19 08:52 10/02/19 08:52 INR, PTT INR 1.03 (0.83-1.09) 09/25/19 00:09 Assessment/Plan Current Medications Generic Name Dose Route Start Last Admin Trade Name Los PRN Reason Stop Dose Admin Amlodipine Besylate 10 mg 10/01/19 10:00 10/02/19 09:17 Norvasc - PO 10 mg DAILY MAT Administration Calcium Acetate 667 mg 09/30/19 17:30 10/02/19 09:17 Phoslo - PO 667 mg TIDCM MAT Administration Carvedilol 6.25 mg 09/30/19 22:00 10/02/19 09:17 Coreg - PO 6.25 mg BID MAT Administration Docusate Sodium 100 mg 10/01/19 10:00 10/02/19 09:17 Colace - PO 100 mg DAILY MAT Administration Heparin Sodium (Porcine) 5,000 unit 09/30/19 22:00 10/02/19 06:12 Heparin - SQ 5,000 unit TID MAT Administration Hydralazine HCl 10 mg 09/30/19 22:00 10/02/19 09:17 Apresoline - PO 10 mg BID MAT Administration Insulin Aspart 1 vial 09/30/19 16:30 10/02/19 11:26 Novolog Vial Sliding Scale - SQ 4 units ACHS MAT Administration Protocol Polyethylene Glycol 17 gm 10/01/19 10:00 10/02/19 09:18 Miralax (For Daily Use) - PO 17 grams DAILY MAT Administration 1. CKD/ESRD 2. Hyperkalemia in setting of renal insufficiency and ARB 3. Edema/volume overload 4. Metabolic acidosis 5. Anemia 6. Hypertension 7. DM not on insulin 9. Cardiomyopathy Plan - pt tolerated HD last night - next HD Thursday - monitor hg - pending placement in hd - cont epo
--- NOTE | 2019-10-02 13:00 | PN ---
Physical Exam: SUBJECTIVE: Patient seen and examined at bedside. The patient denies fever/chills, shortness of breath, palpitations, dehydration, headache, or bowel/bladder problems. The patient reports feeling well. Still pending kidney biopsy results. OBJECTIVE: Vital Signs Period Temp Pulse Resp BP Sys/Lopes Pulse Ox Last 24 Hr 98.4 F-98.8 F 47-78 18-20 139-174/62-78 95-96 GENERAL: The patient is awake, alert, and fully oriented, in no acute distress. HEAD: Normal with no signs of trauma. EYES: Extraocular movements intact. No ptosis. ENT: Ears normal, nares patent, oropharynx clear without exudates, moist mucous membranes. NECK: Trachea midline, full range of motion, supple. LUNGS: Breath sounds equal, clear to auscultation bilaterally, no wheezes, no crackles, no accessory muscle use. HEART: Regular rate and rhythm, S1, S2 without murmur, rub or gallop. ABDOMEN: Soft, nontender, nondistended, normoactive bowel sounds, no guarding, no rebound, no masses. EXTREMITIES: 2+ pulses, warm, well-perfused, no edema. NEUROLOGICAL: Normal speech, gait not observed. PSYCH: Normal mood, normal affect. SKIN: Warm, dry, normal turgor, no rashes or lesions noted Laboratory Results - last 24 hr 10/01/19 10/01/19 10/01/19 11:30 16:47 21:41 WBC RBC Hgb Hct MCV MCH MCHC RDW Plt Count MPV Sodium Potassium Chloride Carbon Dioxide Anion Gap BUN Creatinine Est GFR (CKD-EPI)AfAm Est GFR (CKD-EPI)NonAf POC Glucometer 148 240 Random Glucose Calcium Stool Occult Blood Negative 10/02/19 10/02/19 10/02/19 05:29 08:52 08:52 WBC 9.0 RBC 2.99 L Hgb 8.8 L Hct 26.8 L MCV 89.6 MCH 29.3 MCHC 32.7 RDW 15.6 Plt Count 159 MPV 7.8 Sodium 141 Potassium 3.9 Chloride 103 Carbon Dioxide 29 Anion Gap 9 BUN 27.0 H Creatinine 4.9 H Est GFR (CKD-EPI)AfAm 13.06 Est GFR (CKD-EPI)NonAf 11.27 POC Glucometer 144 Random Glucose 275 H Calcium 8.3 L Stool Occult Blood 10/02/19 11:23 WBC RBC Hgb Hct MCV MCH MCHC RDW Plt Count MPV Sodium Potassium Chloride Carbon Dioxide Anion Gap BUN Creatinine Est GFR (CKD-EPI)AfAm Est GFR (CKD-EPI)NonAf POC Glucometer 245 Random Glucose Calcium Stool Occult Blood Active Medications Generic Name Dose Route Start Last Admin Trade Name Freq PRN Reason Stop Dose Admin Amlodipine Besylate 10 mg 10/01/19 10:00 10/02/19 09:17 Norvasc - PO 10 mg DAILY MAT Administration Calcium Acetate 667 mg 09/30/19 17:30 10/02/19 09:17 Phoslo - PO 667 mg TIDCM MAT Administration Carvedilol 6.25 mg 09/30/19 22:00 10/02/19 09:17 Coreg - PO 6.25 mg BID MAT Administration Docusate Sodium 100 mg 10/01/19 10:00 10/02/19 09:17 Colace - PO 100 mg DAILY MAT Administration Heparin Sodium (Porcine) 5,000 unit 09/30/19 22:00 10/02/19 06:12 Heparin - SQ 5,000 unit TID MAT Administration Hydralazine HCl 10 mg 09/30/19 22:00 10/02/19 09:17 Apresoline - PO 10 mg BID MAT Administration Insulin Aspart 1 vial 09/30/19 16:30 10/02/19 11:26 Novolog Vial Sliding Scale - SQ 4 units ACHS MAT Administration Protocol Polyethylene Glycol 17 gm 10/01/19 10:00 10/02/19 09:18 Miralax (For Daily Use) - PO 17 grams DAILY MAT Administration ASSESSMENT/PLAN: 69 year old male patient with past medical history of HTN, NIDDM, Hep A Antibodies, and Cardiomyopathy, who presented to the ED with leg swelling and syncope. 1. Acute Renal Failure - Creatinine 4.9 today - Renal Biopsy Pending - Permacath placed - Received dialysis T,H,Sat with Epo 2. Dyspnea 2/2 Volume Overload vs. CHF vs. Cardiomyopathy - BNP 18,000 - ECHO showed EF 60-65% with impaired relaxation - Plan for Nuclear MPI on Thursday (Pharmacologic) - Oxygen Saturation of 96% room air 3. Hyperkalemia - resolved - Potassium 3.9 - Monitoring Potassium on labs 4. Anemia 2/2 CKD - Hgb 8.8 - MCV 90.4 - Epo given during dialysis 5. Constipation - resolved - Bowel movement yesterday - Colace and Miralax 6. DM - SSI - Blood Glucose Monitoring 7. HTN - High blood pressure likely 2/2 CKD - Hydralazine, Coreg, Norvasc - Dialysis # FEN - Hemodialysis, Monitoring Electrolytes, Renal Diet DVT PPx - Heparin TID Dispo - Nuclear MPI on Thursday (Pharmacologic) and awaiting biopsy report Visit type - Emergency Visit Emergency Visit: Yes ED Registration Date: 09/25/19 Care time: The patient presented to the Emergency Department on the above date and was hospitalized for further evaluation of their emergent condition. - New Patient This patient is new to me today: Yes Date on this admission: 10/02/19 - Critical Care Critical Care patient: No - Discharge Referral Referred to [facility] Med P.C.: No - Medication Review Med list reviewed for High Risk Meds patients 65 and older: Yes ATTENDING PHYSICIAN STATEMENT I saw and evaluated the patient. I reviewed the resident's note and discussed the case with the resident. I agree with the resident's findings and plan as documented. SUBJECTIVE: OBJECTIVE: ASSESSMENT AND PLAN:
--- NOTE | 2019-10-02 16:27 | PN ---
Teaching Attending Note Name of Resident: Benito Weaver ATTENDING PHYSICIAN STATEMENT I saw and evaluated the patient. I reviewed the resident's note and discussed the case with the resident. I agree with the resident's findings and plan as documented. SUBJECTIVE: Patient has no new complains OBJECTIVE: Vital Signs Temperature 98.2 F 10/02/19 14:15 Pulse Rate 70 10/02/19 14:15 Respiratory Rate 20 10/02/19 14:15 Blood Pressure 143/66 10/02/19 14:15 O2 Sat by Pulse Oximetry (%) 96 10/02/19 09:00 PE:per resident's note CBCD WBC 9.0 K/mm3 (4.0-10.0) 10/02/19 08:52 RBC 2.99 M/mm3 (4.00-5.60) L 10/02/19 08:52 Hgb 8.8 GM/dL (11.7-16.9) L 10/02/19 08:52 Hct 26.8 % (35.4-49) L 10/02/19 08:52 MCV 89.6 fl (80-96) 10/02/19 08:52 MCHC 32.7 g/dl (32.0-35.9) 10/02/19 08:52 RDW 15.6 % (11.9-15.9) 10/02/19 08:52 Plt Count 159 K/MM3 (134-434) 10/02/19 08:52 MPV 7.8 fl (7.5-11.1) 10/02/19 08:52 CMP Sodium 141 mmol/L (136-145) 10/02/19 08:52 Potassium 3.9 mmol/L (3.5-5.1) 10/02/19 08:52 Chloride 103 mmol/L (98-107) 10/02/19 08:52 Carbon Dioxide 29 mmol/L (21-32) 10/02/19 08:52 Anion Gap 9 MMOL/L (8-16) 10/02/19 08:52 BUN 27.0 mg/dL (7-18) H 10/02/19 08:52 Creatinine 4.9 mg/dL (0.55-1.3) H 10/02/19 08:52 Random Glucose 275 mg/dL (74-106) H 10/02/19 08:52 Calcium 8.3 mg/dL (8.5-10.1) L 10/02/19 08:52 Total Bilirubin 0.4 mg/dL (0.2-1) 09/28/19 06:08 AST 42 U/L (15-37) H 09/28/19 06:08 ALT 48 U/L (13-61) 09/28/19 06:08 Alkaline Phosphatase 62 U/L (45-117) 09/28/19 06:08 Total Protein 6.1 g/dl (6.4-8.2) L 09/28/19 06:08 Albumin 2.7 g/dl (3.4-5.0) L 09/28/19 06:08 CARDIAC ENZYMES Creatine Kinase 418 U/L (26-308) H 09/29/19 06:05 Troponin I 0.07 ng/ml (0.00-0.05) H 09/29/19 06:05 Current Medications Generic Name Dose Route Start Last Admin Trade Name Vinhq PRN Reason Stop Dose Admin Amlodipine Besylate 10 mg 10/01/19 10:00 10/02/19 09:17 Norvasc - PO 10 mg DAILY MAT Administration Calcium Acetate 667 mg 09/30/19 17:30 10/02/19 13:13 Phoslo - PO 667 mg TIDCM MAT Administration Carvedilol 6.25 mg 09/30/19 22:00 10/02/19 09:17 Coreg - PO 6.25 mg BID MAT Administration Docusate Sodium 100 mg 10/01/19 10:00 10/02/19 09:17 Colace - PO 100 mg DAILY MAT Administration Heparin Sodium (Porcine) 5,000 unit 09/30/19 22:00 10/02/19 13:13 Heparin - SQ 5,000 unit TID MAT Administration Hydralazine HCl 10 mg 09/30/19 22:00 10/02/19 09:17 Apresoline - PO 10 mg BID MAT Administration Insulin Aspart 1 vial 09/30/19 16:30 10/02/19 11:26 Novolog Vial Sliding Scale - SQ 4 units ACHS MAT Administration Protocol Polyethylene Glycol 17 gm 10/01/19 10:00 10/02/19 09:18 Miralax (For Daily Use) - PO 17 grams DAILY MAT Administration Microbiology 09/25/19 01:00 Urine - Urine Clean Catch Urine Culture - Final NO GROWTH OBTAINED S/p pelvic Us on 09/25/2019: No hydronephrosis, renal cortical echogenicity suggestive medical renal disease. no gross lesion , post void residual volume 120ml, prevoid volume 700ml, approximate volume is 12ml. Cervical Ct : no fracture Head CT: no obvious lesion ASSESSMENT AND PLAN: This patient is a 69yo male with PMHx of hypertension, non-insulin dependent DM, cardiomyopathy, who came [place] [facility] [place] and presented to the ED with complaints of leg swelling and syncope and found to have acute renal failure with hyperkalemia. # Acute renal injury : US negative for obstruction, ATN vs CKD due to HTN and DM, s/p Lasix 100mg daily IV as per nephro s/p renal bx , waiting for the bx result , follow # On HD now due to ESRD : s/p kidney bx today follow the result # Hyperkalemia in setting of renal insufficiency , no arb or nellie-I , Low potassium , renal diet and Lokelma 10mg daily # Volume overload: due to ARF s/p lasix on HD now # Metabolic acidosis, dc metformin, on oral sodium bicarb 1300mg BID, nephro on the case # Normocytic Anemia: most likely due to kidney dz # Hypertension: CCB ;amlodipine continue # T2DM not on insulin , dc metformin since cannot prescribe anymore, continue with januvia 25mg po daily , SS with coverage # Cardiomyopathy: cardio dr Storey DVT Px: heparin sq hepatitis panel is negative, HIV follow follow BX s/p a perma cath waiting for final bx waiting for placement for HD monitor sugar on jaNUVIA GUSTAVO 25MG
[2019-10-03] MEDS: HEPARIN NA (PORCINE) 5,000 UNITS/ML 1ML VIAL SQ SCH ×3 (05:51→21:27)
[2019-10-03] MEDS: INSULIN SLIDING SCALE (NOVOLOG) 1 VIAL SQ SCH ×4 (06:11→21:29)
[2019-10-03 07:33] LABS: HEMATOCRIT 26.2 % (35.4-49); HEMOGLOBIN 8.8 GM/dL (11.7-16.9); MCH 29.9 pg (25.7-33.7); MCHC 33.5 g/dl (32.0-35.9); MEAN CELL VOLUME 89.3 fl (80-96); MEAN PLT VOLUME 8.1 fl (7.5-11.1); PLATELET COUNT 154 K/MM3 (134-434); RBC 2.93 M/mm3 (4.00-5.60); WHITE BLOOD COUNT 7.2 K/mm3 (4.0-10.0)
[2019-10-03 07:53] LABS: BLOOD UREA NITROGEN 41.2 mg/dL (7-18); CALCIUM 8.5 mg/dL (8.5-10.1); CREATININE 6.3 mg/dL (0.55-1.3); MAGNESIUM 1.9 mg/dL (1.8-2.4); PHOSPHOROUS 3.9 mg/dL (2.5-4.9); POTASSIUM 4.1 mmol/L (3.5-5.1)
[2019-10-03] MEDS ORDERED: REGADENOSON 0.4 MG/5 ML PRE-FILLED SYRINGE IVPUSH ONE ×2 (09:30→11:21)
--- NOTE | 2019-10-03 12:00 | PN ---
Progress Note, Physician Chief Complaint: Renal failure History of Present Illness: Having stress test today last dialysis was on Thursday - Current Medication List Current Medications: Active Medications Amlodipine Besylate (Norvasc -) 10 mg PO DAILY [facility] Last Admin: 10/02/19 09:17 Dose: 10 mg Documented by: Calcium Acetate (Phoslo -) 667 mg PO TIDCM REPLACED BY [facility] Last Admin: 10/02/19 16:50 Dose: 667 mg Documented by: Carvedilol (Coreg -) 6.25 mg PO BID [facility]PL[facility] Last Admin: 10/02/19 22:23 Dose: 6.25 mg Documented by: Docusate Sodium (Colace -) 100 mg PO DAILY [facility] Last Admin: 10/02/19 09:17 Dose: 100 mg Documented by: Heparin Sodium (Porcine) (Heparin -) 5,000 unit SQ TID [facility]PL[facility] Last Admin: 10/03/19 05:51 Dose: 5,000 unit Documented by: Hydralazine HCl (Apresoline -) 10 mg PO BID [facility]PL[facility] BY [facility] Last Admin: 10/02/19 22:23 Dose: 10 mg Documented by: Insulin Aspart (Novolog Vial Sliding Scale -) 1 vial SQ [facility] REPLACED BY [facility]; Protocol Last Admin: 10/03/19 06:11 Dose: Not Given Documented by: Polyethylene Glycol (Miralax (For Daily Use) -) 17 gm PO DAILY [facility] BY [facility] Last Admin: 10/02/19 09:18 Dose: 17 grams Documented by: Sitagliptin Phosphate (Januvia -) 25 mg PO DAILY@0700 REPLACED BY [facility] Last Admin: 10/03/19 06:11 Dose: Not Given Documented by: - Objective Vital Signs: Vital Signs Temperature 98.4 F 10/03/19 09:00 Pulse Rate 68 10/03/19 09:00 Respiratory Rate 18 10/03/19 09:00 Blood Pressure 141/73 10/03/19 09:00 O2 Sat by Pulse Oximetry (%) 94 L 10/03/19 09:00 Constitutional: Yes: No Distress Edema: No Labs: CBC, BMP 10/03/19 06:10 10/03/19 06:10 INR, PTT INR 1.03 (0.83-1.09) 09/25/19 00:09 Assessment/Plan 69 year old male with history of hypertension, non-insulin dependent DM, cardiomyopathy, and possible CKD who [place] and presented to the ED with complaints of leg swelling and syncope and found to have renal failure and hyperkalemia. 1. Acute renal injury vs progressive CKD requiring dialysis. 2. Hyperkalemia in setting of renal insufficiency and ARB 3. Edema/volume overload 4. Metabolic acidosis 5. Anemia 6. Hypertension 7. DM not on insulin 9. 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 Medicare situation needs to be clarified prior to placement in outpatient dialysis center next planned dialysis is tomorrow. Thank you Luiz Galdamez DO
[2019-10-03] MEDS: CALCIUM ACETATE 667 MG CAPSULE (FP) PO SCH ×3 (13:45→17:11)
[2019-10-03] MEDS: CARVEDILOL 6.25 MG TABLET (FP) PO SCH ×2 (13:46→21:27)
[2019-10-03] MEDS: DOCUSATE SODIUM 100 MG CAPSULE (FP) PO SCH (13:46)
[2019-10-03] MEDS: amLODIPine BESYLATE 5 MG TABLET (FP) PO SCH (13:46)
[2019-10-03] MEDS: hydrALAZINE HCL 10 MG TABLET PO SCH ×2 (13:46→21:27)
[2019-10-03] MEDS: POLYETHYLENE GLYCOL 3350 119 GM BTL PO SCH (13:47)
--- NOTE | 2019-10-03 14:16 | PN ---
Physical Exam: SUBJECTIVE: Patient seen and examined bedside this morning. In no distress. Resting comfortably. Denies fever, SOB, chest pain, dysuria, hematuria. No events over night. Patient NPO for stress test today. OBJECTIVE: Vital Signs Vital Signs - 8 hr 10/03/19 09:00 Temperature 98.4 F Pulse Rate 68 Respiratory 18 Rate Blood Pressure 141/73 O2 Sat by Pulse 94 L Oximetry (%) GENERAL: The patient A&O x 3 HEAD: Normal with no signs of trauma. EYES: PERRL, extraocular movements intact, conjunctiva clear. ENT: moist mucous membranes LUNGS: Breath sounds equal, CTA BL HEART: Regular rate and rhythm, S1, S2 ABDOMEN: Soft, nondistended, nontender, normal bowel sounds EXTREMITIES: warm, well-perfused, no edema. NEUROLOGICAL: Normal speech Intake & Output 09/30/19 10/01/19 10/02/19 10/03/19 23:59 23:59 23:59 23:59 Intake Total 410 1370 760 0 Output Total 1255 1439 470 Balance -845 -9995 760 -470 Weight 151 lb 152 lb 151 lb 3.2 oz 152 lb Laboratory Results - last 24 hr 10/01/19 10/02/19 10/02/19 11:59 16:44 22:25 WBC RBC Hgb Hct MCV MCH MCHC RDW Plt Count MPV Sodium Potassium Chloride Carbon Dioxide Anion Gap BUN Creatinine Est GFR (CKD-EPI)AfAm Est GFR (CKD-EPI)NonAf POC Glucometer 262 262 236 Random Glucose Calcium Phosphorus Magnesium 10/03/19 10/03/19 10/03/19 05:53 06:10 06:10 WBC 7.2 RBC 2.93 L Hgb 8.8 L Hct 26.2 L MCV 89.3 MCH 29.9 MCHC 33.5 RDW 16.0 H Plt Count 154 MPV 8.1 Sodium 142 Potassium 4.1 Chloride 105 Carbon Dioxide 27 Anion Gap 10 BUN 41.2 H Creatinine 6.3 H Est GFR (CKD-EPI)AfAm 9.64 Est GFR (CKD-EPI)NonAf 8.32 POC Glucometer 139 Random Glucose 149 H Calcium 8.5 Phosphorus 3.9 Magnesium 1.9 Home Medications Medication Instructions Recorded Amlodipine Besylate [Norvasc -] 10 mg PO DAILY 09/27/19 Irbesartan [Avapro] 300 mg PO DAILY 09/27/19 metFORMIN HCL [Metformin HCl] 850 mg PO DAILY 09/27/19 Active Medications Generic Name Dose Route Start Last Admin Trade Name Los PRN Reason Stop Dose Admin Amlodipine Besylate 10 mg 10/01/19 10:00 10/03/19 13:46 Norvasc - PO 10 mg DAILY [facility] Administration Calcium Acetate 667 mg 09/30/19 17:30 10/03/19 13:46 Phoslo - PO Not Given TIDCM [facility] Carvedilol 6.25 mg 09/30/19 22:00 10/03/19 13:46 Coreg - PO 6.25 mg BID [facility] Administration Docusate Sodium 100 mg 10/01/19 10:00 10/03/19 13:46 Colace - PO 100 mg DAILY [facility] Administration Heparin Sodium (Porcine) 5,000 unit 09/30/19 22:00 10/03/19 05:51 Heparin - SQ 5,000 unit TID [facility] Administration Hydralazine HCl 10 mg 09/30/19 22:00 10/03/19 13:46 Apresoline - PO 10 mg BID [facility] Administration Insulin Aspart 1 vial 09/30/19 16:30 10/03/19 13:46 Novolog Vial Sliding Scale - SQ Not Given ACHS [facility] Protocol Polyethylene Glycol 17 gm 10/01/19 10:00 10/03/19 13:47 Miralax (For Daily Use) - PO 17 grams DAILY [facility] Administration Sitagliptin Phosphate 25 mg 10/03/19 07:00 10/03/19 06:11 Januvia - PO Not Given DAILY@0700 [facility] ASSESSMENT/PLAN: Pt is a 69 y/o male with HTN, DM, CHF, "kidney infection" 2 weeks ago (states he was not given medication for this), who presents with 4 months of worsening BL LE swelling, SOB & syncope. He was admitted for dyspnea, went to ICU for acute renal failure requiring emergent dialysis. Patient transferred to floors. CKD w/metabolic acidosis - nephrology following (Dr. 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 Badillo) amlodipine to 10 mg daily hydralazine 10 mg BID daily Carvedilol 6.25 mg BID Nuclear MPI on Today: ST segment depression was seen in inferior and lateral leads. Small size, mild intensity, inferior reversible defect from base to apex compatible with mild ischemia. Normal LV contraction with LV EF of 56% - D/c tele monitoring, transfer to regular floor Hyperkalemia - corrected - follow BMPs Constipation - resolved - docusate 100 mg daily - Miralax daily Anemia: likely 2/2 CKD - hgb/hct stable - continue to monitor DM -SSI -BGMs -Januvia 25 mg -Will not continue metformin on d/c due to renal function DVT Ppx - heparin TID FEN - Renal diet - no IV fluids Dispo Patient needs outpatient dialysis placement. Follow up on Medicaid eligibility as secondary insurance option because patient only has medicare part B at present, which does not cover outpatient HD. Visit type - Emergency Visit Emergency Visit: Yes ED Registration Date: 09/25/19 Care time: The patient presented to the Emergency Department on the above date and was hospitalized for further evaluation of their emergent condition. - New Patient This patient is new to me today: No - Critical Care Critical Care patient: No - Discharge Referral Referred to [facility] Med P.C.: No - Medication Review Med list reviewed for High Risk Meds patients 65 and older: Yes ATTENDING PHYSICIAN STATEMENT I saw and evaluated the patient. I reviewed the resident's note and discussed the case with the resident. I agree with the resident's findings and plan as documented. SUBJECTIVE: OBJECTIVE: ASSESSMENT AND PLAN:
--- NOTE | 2019-10-03 16:42 | PN ---
Progress Note, Physician History of Present Illness: Mr. Vuong is a 69 year old male ([facility]) with a significant past medical history of HTN, DM, CHF, and renal dysfunction, who presents to the ED with 4 months of bilateral LE edema. As per patient, he presented to the ED from the [facility] secondary to receiving inadequate care. Patient also endorses one month of intermittent shortness of breath, chest pain on exertion, bilateral kidney pain and 4 episodes of syncope last week, with head injury. Denies fever, chills, headache, nausea, vomiting, or urinary changes. - Current Medication List Current Medications: Active Medications Amlodipine Besylate (Norvasc -) 10 mg PO DAILY [facility] Calcium Acetate (Phoslo -) 667 mg PO TIDCM [facility] Carvedilol (Coreg -) 6.25 mg PO BID [facility] Docusate Sodium (Colace -) 100 mg PO DAILY [facility] Heparin Sodium (Porcine) (Heparin -) 5,000 unit SQ TID [facility] Hydralazine HCl (Apresoline -) 10 mg PO BID [facility] Insulin Aspart (Novolog Vial Sliding Scale -) 1 vial SQ ACHS [facility]; Protocol Polyethylene Glycol (Miralax (For Daily Use) -) 17 gm PO DAILY [facility] Sitagliptin Phosphate (Januvia -) 25 mg PO DAILY@0700 [facility] - Objective Vital Signs: Vital Signs Temperature 98.3 F 10/03/19 15:21 Pulse Rate 69 10/03/19 15:21 Respiratory Rate 18 10/03/19 15:21 Blood Pressure 167/77 10/03/19 15:21 O2 Sat by Pulse Oximetry (%) 96 10/03/19 15:21 Eyes: Yes: WNL, Conjunctiva Clear, EOM Intact HENT: Yes: WNL, Atraumatic, Normocephalic Neck: Yes: WNL, Supple, Trachea Midline Cardiovascular: Yes: WNL, Regular Rate and Rhythm Respiratory: Yes: WNL, Regular, CTA Bilaterally Gastrointestinal: Yes: WNL, Normal Bowel Sounds Genitourinary: Yes: WNL Musculoskeletal: Yes: WNL Extremities: Yes: WNL Edema: No Integumentary: Yes: WNL Neurological: Yes: WNL, Alert, Oriented ...Motor Strength: WNL Psychiatric: Yes: WNL Labs: CBC, BMP 10/03/19 06:10 10/03/19 06:10 INR, PTT INR 1.03 (0.83-1.09) 09/25/19 00:09 Problem List - Problems (1) Diabetes Code(s): E11.9 - TYPE 2 DIABETES MELLITUS WITHOUT COMPLICATIONS (2) Hyperkalemia Code(s): E87.5 - HYPERKALEMIA (3) Hypertension Code(s): I10 - ESSENTIAL (PRIMARY) HYPERTENSION (4) Kidney failure Code(s): N19 - UNSPECIFIED KIDNEY FAILURE Qualifiers: Renal failure chronicity: acute on chronic Assessment/Plan Assessment/Plan 1. ESRD currently started HD 2. HTN 3. Syncope 4. CHF 5. Elevated troponin suggests demand ischemia, rule out CAD 6. Intermittent dyspnea PLAN: 1. HD as per Renal 2. Awaiting renal biopsy result 3. Trend troponin (last 0.07 on 09/29/19) 4. Continue Amlodipine 10 mg QD and Hydralazine 10 mg BID 5. Continue Carvedilol 6.25 mg BID as tolerated 6. Schedule Nuclear MPI on Thursday (Pharmacologic) 7. Consider ASA 81 mg QD 8. DVT prophylaxis
--- NOTE | 2019-10-03 17:52 | PN ---
Teaching Attending Note Name of Resident: Nasrin Douglas ATTENDING PHYSICIAN STATEMENT I saw and evaluated the patient. I reviewed the resident's note and discussed the case with the resident. I agree with the resident's findings and plan as documented. SUBJECTIVE: Patient has no new complains OBJECTIVE: Vital Signs Temperature 98.3 F 10/03/19 15:21 Pulse Rate 69 10/03/19 15:21 Respiratory Rate 18 10/03/19 15:21 Blood Pressure 167/77 10/03/19 15:21 O2 Sat by Pulse Oximetry (%) 96 10/03/19 15:21 PE: per resident's note CBCD WBC 7.2 K/mm3 (4.0-10.0) 10/03/19 06:10 RBC 2.93 M/mm3 (4.00-5.60) L 10/03/19 06:10 Hgb 8.8 GM/dL (11.7-16.9) L 10/03/19 06:10 Hct 26.2 % (35.4-49) L 10/03/19 06:10 MCV 89.3 fl (80-96) 10/03/19 06:10 MCHC 33.5 g/dl (32.0-35.9) 10/03/19 06:10 RDW 16.0 % (11.9-15.9) H 10/03/19 06:10 Plt Count 154 K/MM3 (134-434) 10/03/19 06:10 MPV 8.1 fl (7.5-11.1) 10/03/19 06:10 CMP Sodium 142 mmol/L (136-145) 10/03/19 06:10 Potassium 4.1 mmol/L (3.5-5.1) 10/03/19 06:10 Chloride 105 mmol/L (98-107) 10/03/19 06:10 Carbon Dioxide 27 mmol/L (21-32) 10/03/19 06:10 Anion Gap 10 MMOL/L (8-16) 10/03/19 06:10 BUN 41.2 mg/dL (7-18) H 10/03/19 06:10 Creatinine 6.3 mg/dL (0.55-1.3) H 10/03/19 06:10 Random Glucose 149 mg/dL (74-106) H 10/03/19 06:10 Calcium 8.5 mg/dL (8.5-10.1) 10/03/19 06:10 Total Bilirubin 0.4 mg/dL (0.2-1) 09/28/19 06:08 AST 42 U/L (15-37) H 09/28/19 06:08 ALT 48 U/L (13-61) 09/28/19 06:08 Alkaline Phosphatase 62 U/L (45-117) 09/28/19 06:08 Total Protein 6.1 g/dl (6.4-8.2) L 09/28/19 06:08 Albumin 2.7 g/dl (3.4-5.0) L 09/28/19 06:08 CARDIAC ENZYMES Creatine Kinase 418 U/L (26-308) H 09/29/19 06:05 Troponin I 0.07 ng/ml (0.00-0.05) H 09/29/19 06:05 Current Medications Generic Name Dose Route Start Last Admin Trade Name Freq PRN Reason Stop Dose Admin Amlodipine Besylate 10 mg 10/04/19 10:00 Norvasc - PO DAILY [facility] Calcium Acetate 667 mg 10/03/19 17:30 10/03/19 17:11 Phoslo - PO 667 mg TIDCM [facility] Administration Carvedilol 6.25 mg 10/03/19 22:00 Coreg - PO BID [facility] Docusate Sodium 100 mg 10/04/19 10:00 Colace - PO DAILY [facility] Heparin Sodium (Porcine) 5,000 unit 10/03/19 22:00 Heparin - SQ TID [facility] Hydralazine HCl 10 mg 10/03/19 22:00 Apresoline - PO BID [facility] Insulin Aspart 1 vial 10/03/19 16:30 Novolog Vial Sliding Scale - SQ ACHS [facility] Protocol Polyethylene Glycol 17 gm 10/04/19 10:00 Miralax (For Daily Use) - PO DAILY [facility] Sitagliptin Phosphate 25 mg 10/04/19 07:00 Januvia - PO DAILY@0700 [facility] Home Medications Medication Instructions Recorded Amlodipine Besylate [Norvasc -] 10 mg PO DAILY 09/27/19 Irbesartan [Avapro] 300 mg PO DAILY 09/27/19 metFORMIN HCL [Metformin HCl] 850 mg PO DAILY 09/27/19 Microbiology 08/09/20 01:00 Urine - Urine Clean Catch Urine Culture - Final NO GROWTH OBTAINED S/p pelvic Us on 09/25/2019: No hydronephrosis, renal cortical echogenicity suggestive medical renal disease. no gross lesion , post void residual volume 120ml, prevoid volume 700ml, approximate volume is 12ml. Cervical Ct : no fracture Head CT: no obvious lesion ASSESSMENT AND PLAN: This patient is a 69yo male with PMHx of hypertension, non-insulin dependent DM, cardiomyopathy, who came from [place] [facility] [place] and presented to the ED with complaints of leg swelling and syncope and found to have acute renal failure with hyperkalemia. # Acute renal injury : on HD now , needing HD placement . 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 # On HD now due to ESRD : s/p kidney bx # Hyperkalemia in setting of renal insufficiency , no arb or nellie-I , Low potassium , renal diet and Lokelma 10mg daily # Volume overload: due to ARF s/p lasix on HD now # Metabolic acidosis, dc metformin, on oral sodium bicarb 1300mg BID, nephro on the case # Normocytic Anemia: most likely due to kidney dz # Hypertension: CCB ;amlodipine continue # T2DM not on insulin , dc metformin since cannot prescribe anymore, continue with januvia 25mg po daily , SS with coverage # Cardiomyopathy: cardio dr Storey DVT Px: heparin sq hepatitis panel is negative, HIV follow waiting for placement for HD monitor sugar on jaNUVIA NOw 25MG
[2019-10-03] MEDS ORDERED: INSULIN (NOVOLOG) ASPART 100 UNITS/ML 10ML VIAL ONE (18:03)
[2019-10-04] MEDS: HEPARIN NA (PORCINE) 5,000 UNITS/ML 1ML VIAL SQ SCH ×3 (06:12→21:09)
[2019-10-04] MEDS: INSULIN SLIDING SCALE (NOVOLOG) 1 VIAL SQ SCH ×4 (06:15→21:07)
[2019-10-04] MEDS: CALCIUM ACETATE 667 MG CAPSULE (FP) PO SCH ×3 (08:02→17:02)
[2019-10-04 08:13] LABS: BLOOD UREA NITROGEN 53.5 mg/dL (7-18); CALCIUM 8.8 mg/dL (8.5-10.1); CREATININE 6.9 mg/dL (0.55-1.3); MAGNESIUM 2.3 mg/dL (1.8-2.4); PHOSPHOROUS 4.6 mg/dL (2.5-4.9); POTASSIUM 4.3 mmol/L (3.5-5.1)
[2019-10-04] MEDS ORDERED: amLODIPine BESYLATE 5 MG TABLET (FP) PO SCH (10:00)
[2019-10-04] MEDS ORDERED: FUROSEMIDE 40 MG/4 ML INJECTABLE VIAL IVPB ONE (10:37)
[2019-10-04] MEDS ORDERED: SODIUM CHLORIDE 250 ML IV PRN (10:44)
[2019-10-04] MEDS ORDERED: EPOETIN ALFA 10,000 UNIT/1 ML VIAL IVPUSH ONE (11:30)
[2019-10-04] MEDS: hydrALAZINE HCL 10 MG TABLET PO SCH ×2 (11:55→21:09)
[2019-10-04] MEDS: CARVEDILOL 6.25 MG TABLET (FP) PO SCH ×2 (11:56→21:08)
[2019-10-04] MEDS: DOCUSATE SODIUM 100 MG CAPSULE (FP) PO SCH (11:56)
[2019-10-04] MEDS: POLYETHYLENE GLYCOL 3350 119 GM BTL PO SCH ×2 (11:57→17:45)
[2019-10-04 12:16] LABS: HEMATOCRIT 26.3 % (35.4-49); HEMOGLOBIN 8.7 GM/dL (11.7-16.9); MCH 29.7 pg (25.7-33.7); MCHC 32.9 g/dl (32.0-35.9); MEAN CELL VOLUME 90.1 fl (80-96); MEAN PLT VOLUME 8.1 fl (7.5-11.1); PLATELET COUNT 149 K/MM3 (134-434); RBC 2.92 M/mm3 (4.00-5.60); WHITE BLOOD COUNT 5.9 K/mm3 (4.0-10.0)
[2019-10-04 12:44] LABS: BLOOD UREA NITROGEN 54.3 mg/dL (7-18); CALCIUM 8.6 mg/dL (8.5-10.1); CREATININE 6.9 mg/dL (0.55-1.3); PHOSPHOROUS 4.2 mg/dL (2.5-4.9); POTASSIUM 4.1 mmol/L (3.5-5.1)
--- NOTE | 2019-10-04 16:02 | PN ---
Physical Exam: SUBJECTIVE: Patient seen and examined bedside. In no distress. Patient denies SOB, chest pain, n/v/d. Patient did not go for HD yesterday. Plan is for him to go today. OBJECTIVE: Vital Signs 10/04/19 10/04/19 10/04/19 09:25 11:30 11:40 Temperature 98.1 F 98 F Pulse Rate 67 64 65 Respiratory 18 18 18 Rate Blood Pressure 152/62 160/59 L 167/69 O2 Sat by Pulse 99 Oximetry (%) 10/04/19 14:10 Temperature Pulse Rate 60 Respiratory 18 Rate Blood Pressure 146/62 O2 Sat by Pulse Oximetry (%) GENERAL: The patient A&O x 3 HEAD: Normal with no signs of trauma. EYES: PERRL, extraocular movements intact, conjunctiva clear. ENT: moist mucous membranes LUNGS: Breath sounds equal, CTA BL HEART: Regular rate and rhythm, S1, S2, systolic murmur ABDOMEN: Soft, nondistended, nontender, normal bowel sounds EXTREMITIES: warm, well-perfused, no edema. NEUROLOGICAL: Normal speech Intake & Output 10/01/19 10/02/19 10/03/19 10/04/19 23:59 23:59 23:59 23:59 Intake Total 1370 760 240 640 Output Total 5560.783.92887 Balance -4585 025 -019 -73625 Weight 152 lb 151 lb 3.2 oz 152 lb 150 lb 2 oz Laboratory Results - last 24 hr 10/03/19 10/03/19 10/04/19 17:55 21:28 06:12 WBC RBC Hgb Hct MCV MCH MCHC RDW Plt Count MPV Sodium Potassium Chloride Carbon Dioxide Anion Gap BUN Creatinine Est GFR (CKD-EPI)AfAm Est GFR (CKD-EPI)NonAf POC Glucometer 279 189 151 Random Glucose Calcium Phosphorus Magnesium 10/04/19 10/04/19 10/04/19 06:55 10:45 11:48 WBC 5.9 RBC 2.92 L Hgb 8.7 L Hct 26.3 L MCV 90.1 MCH 29.7 MCHC 32.9 RDW 16.0 H Plt Count 149 MPV 8.1 Sodium 140 140 Potassium 4.3 4.1 Chloride 105 104 Carbon Dioxide 28 27 Anion Gap 7 L 10 BUN 53.5 H 54.3 H Creatinine 6.9 H 6.9 H Est GFR (CKD-EPI)AfAm 8.64 8.64 Est GFR (CKD-EPI)NonAf 7.45 7.45 POC Glucometer Random Glucose 157 H 187 H Calcium 8.8 8.6 Phosphorus 4.6 4.2 Magnesium 2.3 Active Medications Generic Name Dose Route Start Last Admin Trade Name Freq PRN Reason Stop Dose Admin Amlodipine Besylate 10 mg 10/04/19 10:00 10/04/19 11:56 Norvasc - PO Not Given DAILY [facility] Calcium Acetate 667 mg 10/03/19 17:30 10/04/19 11:54 Phoslo - PO Not Given TIDCM [facility] Carvedilol 6.25 mg 10/03/19 22:00 10/04/19 11:56 Coreg - PO Not Given BID [facility] Docusate Sodium 100 mg 10/04/19 10:00 10/04/19 11:56 Colace - PO Not Given DAILY [facility] Heparin Sodium (Porcine) 5,000 unit 10/03/19 22:00 10/04/19 14:33 Heparin - SQ Not Given TID [facility] Hydralazine HCl 10 mg 10/03/19 22:00 10/04/19 11:55 Apresoline - PO Not Given BID [facility] Sodium Chloride 250 mls @ 3,000 mls/hr 10/04/19 10:44 Normal Saline - IV 10/05/19 10:44 PRN PRN Hypotension during Dialysis Insulin Aspart 1 vial 10/03/19 16:30 10/04/19 11:54 Novolog Vial Sliding Scale - SQ Not Given ACHS [facility] Protocol Polyethylene Glycol 17 gm 10/04/19 10:00 10/04/19 11:57 Miralax (For Daily Use) - PO Not Given DAILY [facility] Sitagliptin Phosphate 25 mg 10/04/19 07:00 10/04/19 06:13 Januvia - PO 25 mg DAILY@0700 [facility] Administration ASSESSMENT/PLAN: Pt is a 69 y/o male with HTN, DM, CHF, "kidney infection" 2 weeks ago (states he was not given medication for this), who presents with 4 months of worsening BL LE swelling, SOB & syncope. He was admitted for dyspnea, went to ICU for acute renal failure requiring emergent dialysis. Patient transferred to floors. CKD w/metabolic acidosis - nephrology following (Dr. 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 Badillo) amlodipine to 10 mg daily hydralazine 10 mg BID daily Carvedilol 6.25 mg BID Nuclear MPI: ST segment depression was seen in inferior and lateral leads. Small size, mild intensity, inferior reversible defect from base to apex compatible with mild ischemia. Normal LV contraction with LV EF of 56% - D/c tele monitoring, transfer to regular floor Hyperkalemia - corrected - follow BMPs Constipation - resolved - docusate 100 mg daily - Miralax daily Anemia: likely 2/2 CKD - hgb/hct stable - will continue SOPHIE with dialysis DM -SSI -BGMs -Januvia 25 mg daily -Will not continue metformin on d/c due to renal function DVT Ppx - heparin TID FEN - Renal diet - phosphate binder with meals - no IV fluids Dispo Patient needs outpatient dialysis placement. Follow up on Medicaid eligibility as secondary insurance option because patient only has medicare part B at present, which does not cover outpatient HD. Visit type - Emergency Visit Emergency Visit: Yes ED Registration Date: 09/25/19 Care time: The patient presented to the Emergency Department on the above date and was hospitalized for further evaluation of their emergent condition. - New Patient This patient is new to me today: No - Critical Care Critical Care patient: No - Discharge Referral Referred to [facility] Med P.C.: No - Medication Review Med list reviewed for High Risk Meds patients 65 and older: Yes ATTENDING PHYSICIAN STATEMENT I saw and evaluated the patient. I reviewed the resident's note and discussed the case with the resident. I agree with the resident's findings and plan as documented. SUBJECTIVE: OBJECTIVE: ASSESSMENT AND PLAN:
--- NOTE | 2019-10-04 17:14 | PN ---
Progress Note, Physician Chief Complaint: Renal failure History of Present Illness: Seen and examined at the bedside awake and alert feels fatigued. Denies any sob, pain, nausea, fever or chills making urine awaiting insurance clarification - Current Medication List Current Medications: Active Medications Amlodipine Besylate (Norvasc -) 10 mg PO DAILY [facility] Last Admin: 10/04/19 11:56 Dose: Not Given Documented by: Calcium Acetate (Phoslo -) 667 mg PO TIDCM [facility] Last Admin: 10/04/19 17:02 Dose: 667 mg Documented by: Carvedilol (Coreg -) 6.25 mg PO BID [facility] Last Admin: 10/04/19 11:56 Dose: Not Given Documented by: Docusate Sodium (Colace -) 100 mg PO DAILY [facility] Last Admin: 10/04/19 11:56 Dose: Not Given Documented by: Heparin Sodium (Porcine) (Heparin -) 5,000 unit SQ TID [facility] Last Admin: 10/04/19 14:33 Dose: Not Given Documented by: Hydralazine HCl (Apresoline -) 10 mg PO BID [facility] Last Admin: 10/04/19 11:55 Dose: Not Given Documented by: Sodium Chloride (Normal Saline -) 250 mls @ 3,000 mls/hr IV PRN PRN PRN Reason: Hypotension during Dialysis Stop: 10/05/19 10:44 Insulin Aspart (Novolog Vial Sliding Scale -) 1 vial SQ [facility]; Protocol Last Admin: 10/04/19 17:04 Dose: 4 units Documented by: Polyethylene Glycol (Miralax (For Daily Use) -) 17 gm PO DAILY [facility] Last Admin: 10/04/19 11:57 Dose: Not Given Documented by: Sitagliptin Phosphate (Januvia -) 25 mg PO DAILY@0700 [facility] Last Admin: 10/04/19 06:13 Dose: 25 mg Documented by: - Objective Vital Signs: Vital Signs Temperature 98 F 10/04/19 11:30 Pulse Rate 60 10/04/19 14:48 Respiratory Rate 18 10/04/19 14:48 Blood Pressure 142/64 10/04/19 14:48 O2 Sat by Pulse Oximetry (%) 99 10/04/19 09:25 Constitutional: Yes: No Distress, Calm HENT: Yes: Atraumatic Neck: Yes: Supple Cardiovascular: Yes: Regular Rate and Rhythm Respiratory: Yes: Regular Gastrointestinal: Yes: Soft Extremities: No: Cyanosis Edema: No Neurological: Yes: Alert Labs: CBC, BMP 10/04/19 11:48 10/04/19 10:45 INR, PTT INR 1.03 (0.83-1.09) 09/25/19 00:09 Assessment/Plan 69 year old male with history of hypertension, non-insulin dependent DM, cardiomyopathy, and possible CKD who came from the [facility] [place] and presented to the ED with complaints of leg swelling and syncope and found to have renal failure and hyperkalemia. 1. 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 Hyperkalemia now resolved 3. Volume overload 4. Metabolic acidosis 5. Anemia 6. Hypertension 7. DM not on insulin 9. Cardiomyopathy s/p dialysis earlier today, tolerated it well. Will need 3x weekly dialysis going forward given severe diabetic nephropathy. Pending insurance clarification for outpatient dialysis placement. will continue SOPHIE with dialysis for anemia. Renal diet. Phos binder with meals. Next planned dialysis is . Thank you Luiz Galdamez DO
--- NOTE | 2019-10-04 19:18 | PN ---
Teaching Attending Note Name of Resident: Franklyn Cosby ATTENDING PHYSICIAN STATEMENT I saw and evaluated the patient. I reviewed the resident's note and discussed the case with the resident. I agree with the resident's findings and plan as documented. SUBJECTIVE: No fever or chills. No pain . assistant auto center manager phone was used. no SOB , no CP OBJECTIVE: NAD. [place] [facility] [place] Lungs: fine crackles anterior left chest wall . no crackles posteriorly Ext : trace edema Abd: soft, Nt, Nd , NL BS ASSESSMENT AND PLAN: 69 y/o man with h/o hypertension, non-insulin dependent DM, cardiomyopathy, and possible CKD , who presneted with LE edema and was found to have severe diabetic nephropathy and hyperkalemia requiring HD. 1- ESRD 2/2 severe diabetic nephropathy 2- hyperkalemia ,. resolved 3- Volume overload from renal disease 4- HTn 5- DM 6- anemia plan : - cont HD pending out pt HD center - needs hep B vaccine as out pt - cont norvasc, ccb , coreg , and HZN - off metformin . will not resume - cont SSI - SOPHIE with HD Heparin SQ need life saving HD. can't dc with no out pt arrangements
[2019-10-05] MEDS: INSULIN SLIDING SCALE (NOVOLOG) 1 VIAL SQ SCH ×4 (06:30→21:38)
[2019-10-05] MEDS: HEPARIN NA (PORCINE) 5,000 UNITS/ML 1ML VIAL SQ SCH ×3 (06:31→21:29)
--- NOTE | 2019-10-05 07:56 | PN ---
Progress Note, Physician Chief Complaint: Pt A&Ox3; sitting up in bed; no chest pain or dyspnea. History of Present Illness: Mr. Vuong is a 69 year old male (b. [facility]) with a significant past medical history of HTN, DM, CHF, and renal dysfunction, who presents to the ED with 4 months of bilateral LE edema. As per patient, he presented to the ED from the [facility] secondary to receiving inadequate care. Patient also endorses one month of intermittent shortness of breath, occasional mild sharp central chest pain on exertion lasting a few seconds, bilateral kidney pain and 4 episodes of syncope last week, with head injury. Denies fever, chills, headache, nausea, vomiting, or urinary changes. - Current Medication List Current Medications: Active Medications Amlodipine Besylate (Norvasc -) 10 mg PO DAILY [facility] Last Admin: 10/04/19 11:56 Dose: Not Given Documented by: Calcium Acetate (Phoslo -) 667 mg PO TIDCM [facility] Last Admin: 10/04/19 17:02 Dose: 667 mg Documented by: Carvedilol (Coreg -) 6.25 mg PO BID [facility] Last Admin: 10/04/19 21:08 Dose: 6.25 mg Documented by: Docusate Sodium (Colace -) 100 mg PO DAILY [facility] Last Admin: 10/04/19 11:56 Dose: Not Given Documented by: Heparin Sodium (Porcine) (Heparin -) 5,000 unit SQ TID [facility] Last Admin: 10/05/19 06:31 Dose: 5,000 unit Documented by: Hydralazine HCl (Apresoline -) 10 mg PO BID [facility] Last Admin: 10/04/19 21:09 Dose: 10 mg Documented by: Sodium Chloride (Normal Saline -) 250 mls @ 3,000 mls/hr IV PRN PRN PRN Reason: Hypotension during Dialysis Stop: 10/05/19 10:44 Insulin Aspart (Novolog Vial Sliding Scale -) 1 vial SQ [facility]; Protocol Last Admin: 10/05/19 06:30 Dose: 2 units Documented by: Polyethylene Glycol (Miralax (For Daily Use) -) 17 gm PO DAILY [facility] Last Admin: 10/04/19 17:45 Dose: 17 grams Documented by: Sitagliptin Phosphate (Januvia -) 25 mg PO DAILY@0700 [facility] Last Admin: 10/05/19 06:30 Dose: 25 mg Documented by: - Objective Vital Signs: Vital Signs Temperature 98.5 F 10/05/19 05:00 Pulse Rate 67 10/05/19 05:00 Respiratory Rate 18 10/05/19 05:00 Blood Pressure 148/73 10/05/19 05:00 O2 Sat by Pulse Oximetry (%) 99 10/05/19 05:00 Constitutional: Yes: Calm Eyes: Yes: WNL HENT: Yes: WNL Neck: Yes: WNL Cardiovascular: Yes: S1, S2 Respiratory: Yes: WNL Gastrointestinal: Yes: Soft ...Rectal Exam: Yes: Deferred Genitourinary: Yes: Urethral Discharge, Other (ESRD; on HD). No: Anuria Musculoskeletal: Yes: Muscle Weakness Extremities: Yes: Cool Edema: No Peripheral Pulses WNL: Yes Integumentary: Yes: Venous Stasis Changes Neurological: Yes: Alert, Oriented, Weakness Psychiatric: Yes: Alert, Oriented Labs: CBC, BMP 10/04/19 11:48 10/04/19 10:45 INR, PTT INR 1.03 (0.83-1.09) 09/25/19 00:09 Abnormal Lab Results 10/06/19 10/06/19 06:15 06:15 RBC 3.13 L Hgb 9.3 L Hct 28.4 L RDW 16.4 H BUN 44.9 H Creatinine 6.6 H Random Glucose 144 H Phosphorus 5.2 H - ....Imaging Chest X-ray: Image Reviewed EKG: Image Reviewed Assessment/Plan Bilateral LE edema x several months Intermittent shortness of breath Syncope x 4 recently renal failure anemia severe hyperkalemia rhabdomyolysis HTN CHF elevated TNI EKG: NSR; ? old septal infarct ECHO: normal LVEF; mild-moderate LVH; small pericardial effusion Rec: s/p renal biopsy; await results. s/p Permacath Increased amlodipine to 10 mg daily; increase hydralazine; continue Coreg;f/u BP serially. Corrected hyperkalemia: off Lokelma Cholesterol: LDL 68; HDL 45. CK decreasing; (furosemide discontinued). Orthostatic Vital signs post-dialysis CT head: no acute intracranial pathology Plan for stress MIBI if coronary artery workup not done recently.
[2019-10-05] MEDS ORDERED: amLODIPine BESYLATE 5 MG TABLET (FP) PO SCH (08:01)
[2019-10-05] MEDS: CALCIUM ACETATE 667 MG CAPSULE (FP) PO SCH ×3 (08:14→16:33)
[2019-10-05] MEDS: hydrALAZINE HCL 10 MG TABLET PO SCH (10:13)
[2019-10-05] MEDS: DOCUSATE SODIUM 100 MG CAPSULE (FP) PO SCH ×2 (10:13→21:31)
[2019-10-05] MEDS: POLYETHYLENE GLYCOL 3350 119 GM BTL PO SCH (10:13)
[2019-10-05] MEDS: CARVEDILOL 6.25 MG TABLET (FP) PO SCH (10:13)
[2019-10-05] MEDS ORDERED: hydrALAZINE HCL 10 MG TABLET PO SCH (10:29)
[2019-10-05] MEDS ORDERED: hydrALAZINE HCL 10 MG TABLET PO ONE ×2 (10:30)
[2019-10-05 10:45] LABS: HEMATOCRIT 28.7 % (35.4-49); HEMOGLOBIN 9.3 GM/dL (11.7-16.9); MCH 29.8 pg (25.7-33.7); MCHC 32.5 g/dl (32.0-35.9); MEAN CELL VOLUME 91.7 fl (80-96); MEAN PLT VOLUME 8.5 fl (7.5-11.1); PLATELET COUNT 146 K/MM3 (134-434); RBC 3.13 M/mm3 (4.00-5.60); RDW 16.6 % (11.9-15.9); WHITE BLOOD COUNT 6.1 K/mm3 (4.0-10.0)
[2019-10-05 11:08] LABS: BLOOD UREA NITROGEN 30.4 mg/dL (7-18); CALCIUM 8.5 mg/dL (8.5-10.1); CREATININE 5.2 mg/dL (0.55-1.3); MAGNESIUM 2.1 mg/dL (1.8-2.4); PHOSPHOROUS 3.8 mg/dL (2.5-4.9); POTASSIUM 4.2 mmol/L (3.5-5.1)
--- NOTE | 2019-10-05 11:17 | PN ---
Progress Note, Physician History of Present Illness: Mr. Vuong is a 69 year old male ([facility]) with a significant past medical history of HTN, DM, CHF, and renal dysfunction, who presents to the ED with 4 months of bilateral LE edema. As per patient, he presented to the ED from the [facility] secondary to receiving inadequate care. Patient also endorses one month of intermittent shortness of breath, chest pain on exertion, bilateral kidney pain and 4 episodes of syncope last week, with head injury. Denies fever, chills, headache, nausea, vomiting, or urinary changes. - Current Medication List Current Medications: Active Medications Amlodipine Besylate (Norvasc -) 10 mg PO DAILY [facility] Calcium Acetate (Phoslo -) 667 mg PO TIDCM [facility] Last Admin: 10/05/19 08:14 Dose: 667 mg Documented by: Carvedilol (Coreg -) 6.25 mg PO BID [facility] Last Admin: 10/05/19 10:13 Dose: 6.25 mg Documented by: Docusate Sodium (Colace -) 100 mg PO DAILY [facility] Last Admin: 10/05/19 10:13 Dose: 100 mg Documented by: Heparin Sodium (Porcine) (Heparin -) 5,000 unit SQ TID [facility] Last Admin: 10/05/19 06:31 Dose: 5,000 unit Documented by: Hydralazine HCl (Apresoline -) 25 mg PO BID [facility] Insulin Aspart (Novolog Vial Sliding Scale -) 1 vial SQ [facility]; Protocol Last Admin: 10/05/19 06:30 Dose: 2 units Documented by: Polyethylene Glycol (Miralax (For Daily Use) -) 17 gm PO DAILY [facility] Last Admin: 10/05/19 10:13 Dose: Not Given Documented by: Sitagliptin Phosphate (Januvia -) 25 mg PO DAILY@0700 [facility] Last Admin: 10/05/19 06:30 Dose: 25 mg Documented by: - Objective Vital Signs: Vital Signs Temperature 98.3 F 10/05/19 09:24 Pulse Rate 72 10/05/19 09:24 Respiratory Rate 18 10/05/19 09:24 Blood Pressure 138/60 10/05/19 09:24 O2 Sat by Pulse Oximetry (%) 97 10/05/19 09:24 Eyes: Yes: WNL, Conjunctiva Clear, EOM Intact HENT: Yes: WNL, Atraumatic, Normocephalic Neck: Yes: WNL, Supple, Trachea Midline Cardiovascular: Yes: WNL, Regular Rate and Rhythm Respiratory: Yes: WNL, Regular, CTA Bilaterally Gastrointestinal: Yes: WNL, Normal Bowel Sounds Genitourinary: Yes: WNL Musculoskeletal: Yes: WNL Extremities: Yes: WNL Edema: No Integumentary: Yes: WNL Neurological: Yes: WNL, Alert, Oriented ...Motor Strength: WNL Psychiatric: Yes: WNL Labs: CBC, BMP 10/05/19 09:35 10/05/19 09:35 INR, PTT INR 1.03 (0.83-1.09) 09/25/19 00:09 Problem List - Problems (1) Diabetes Code(s): E11.9 - TYPE 2 DIABETES MELLITUS WITHOUT COMPLICATIONS (2) Hyperkalemia Code(s): E87.5 - HYPERKALEMIA (3) Hypertension Code(s): I10 - ESSENTIAL (PRIMARY) HYPERTENSION (4) Kidney failure Code(s): N19 - UNSPECIFIED KIDNEY FAILURE Qualifiers: Renal failure chronicity: acute on chronic Assessment/Plan Bilateral LE edema x several months Intermittent shortness of breath Syncope x 4 recently renal failure anemia severe hyperkalemia rhabdomyolysis HTN CHF elevated TNI EKG: NSR; ? old septal infarct ECHO: normal LVEF; mild-moderate LVH; small pericardial effusion ESRD due to diabetic nephropathy Rec: s/p Permacath Increased amlodipine to 10 mg daily; increase hydralazine; continue Coreg;f/u BP serially. Corrected hyperkalemia: off Lokelma Cholesterol: LDL 68; HDL 45. CK decreasing; (furosemide discontinued). Orthostatic Vital signs post-dialysis CT head: no acute intracranial pathology stress MIBI mild IW ischemia, EF nl - would recommend medical treatment Add ASA 81 QD and Lipitor 10 mg QHS. If patient fails medical treatment would consider c.cath.
--- NOTE | 2019-10-05 15:02 | PN ---
Progress Note, Physician Chief Complaint: Renal failure History of Present Illness: Seen and examined at the bedside awake and alert offers no acute complaints denies any sob, cp, fever, chills, N/V/D s/p dialysis yesterday - Current Medication List Current Medications: Active Medications Amlodipine Besylate (Norvasc -) 10 mg PO DAILY [facility] Calcium Acetate (Phoslo -) 667 mg PO TIDCM [facility] Last Admin: 10/05/19 11:31 Dose: 667 mg Documented by: Carvedilol (Coreg -) 6.25 mg PO BID [facility] Last Admin: 10/05/19 10:13 Dose: 6.25 mg Documented by: Docusate Sodium (Colace -) 100 mg PO DAILY [facility] Last Admin: 10/05/19 10:13 Dose: 100 mg Documented by: Heparin Sodium (Porcine) (Heparin -) 5,000 unit SQ TID [facility] Last Admin: 10/05/19 13:44 Dose: 5,000 unit Documented by: Hydralazine HCl (Apresoline -) 25 mg PO BID [facility] Insulin Aspart (Novolog Vial Sliding Scale -) 1 vial SQ [facility]; Protocol Last Admin: 10/05/19 11:33 Dose: 2 units Documented by: Polyethylene Glycol (Miralax (For Daily Use) -) 17 gm PO DAILY [facility] Last Admin: 10/05/19 10:13 Dose: Not Given Documented by: Sitagliptin Phosphate (Januvia -) 25 mg PO DAILY@0700 [facility] Last Admin: 10/05/19 06:30 Dose: 25 mg Documented by: - Objective Vital Signs: Vital Signs Temperature 98.3 F 10/05/19 09:24 Pulse Rate 72 10/05/19 09:24 Respiratory Rate 18 10/05/19 09:24 Blood Pressure 138/60 10/05/19 09:24 O2 Sat by Pulse Oximetry (%) 97 10/05/19 09:24 Constitutional: Yes: No Distress, Calm Eyes: Yes: Conjunctiva Clear HENT: Yes: Atraumatic Neck: Yes: Supple Cardiovascular: Yes: Regular Rate and Rhythm Respiratory: Yes: Regular Gastrointestinal: Yes: Soft Extremities: No: Cyanosis Edema: No Neurological: Yes: Alert Labs: CBC, BMP 10/05/19 09:35 10/05/19 09:35 INR, PTT INR 1.03 (0.83-1.09) 08/09/20 00:09 Assessment/Plan 69 year old male with history of hypertension, non-insulin dependent DM, cardiomyopathy, and possible CKD who came from the [place] and presented to the ED with complaints of leg swelling and syncope and found to have renal failure and hyperkalemia. 1. 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 Hyperkalemia now resolved 3. Volume overload 4. Metabolic acidosis 5. Anemia 6. Hypertension 7. DM not on insulin 9. Cardiomyopathy no acute need for dialysis today, next planned dialysis is tomorrow. Will need 3x weekly dialysis going forward given severe diabetic nephropathy. Pending insurance clarification for outpatient dialysis placement. will continue SOPHIE with dialysis for anemia. Renal diet. Phos binder with meals. Thank you Luiz Galdamez DO
--- NOTE | 2019-10-05 15:51 | PN ---
Physical Exam: SUBJECTIVE: Patient seen and examined beside. In no distress. No complaints. Denies SOB, chest pain, dysuria, hematuria, n/v/d. S/P HD yesterday. OBJECTIVE: Vital Signs 10/05/19 10/05/19 09:24 15:16 Temperature 98.3 F 99.2 F Pulse Rate 72 68 Respiratory 18 18 Rate Blood Pressure 138/60 147/63 O2 Sat by Pulse 97 95 Oximetry (%) GENERAL: The patient A&O x 3 HEAD: Normal with no signs of trauma. EYES: PERRL, extraocular movements intact, conjunctiva clear. ENT: moist mucous membranes LUNGS: Breath sounds equal, CTA BL HEART: Regular rate and rhythm, S1, S2, systolic murmur ABDOMEN: Soft, nondistended, nontender, normal bowel sounds EXTREMITIES: warm, well-perfused, no edema. NEUROLOGICAL: Normal speech Intake & Output 10/02/19 10/03/19 10/04/19 10/05/19 23:59 23:59 23:59 23:59 Intake Total 760 240 640 100 Output Total 470 43736 Balance 068 -550 -55653 100 Weight 151 lb 3.2 oz 152 lb 150 lb 2 oz Laboratory Results 10/05/19 10/05/19 10/05/19 09:35 09:35 11:32 WBC 6.1 RBC 3.13 L Hgb 9.3 L Hct 28.7 L MCV 91.7 MCH 29.8 MCHC 32.5 RDW 16.6 H Plt Count 146 MPV 8.5 Sodium 141 Potassium 4.2 Chloride 102 Carbon Dioxide 31 Anion Gap 9 BUN 30.4 H Creatinine 5.2 H Est GFR (CKD-EPI)AfAm 12.16 Est GFR (CKD-EPI)NonAf 10.49 POC Glucometer 188 Random Glucose 230 H Calcium 8.5 Phosphorus 3.8 Magnesium 2.1 Active Medications Generic Name Dose Route Start Last Admin Trade Name Freq PRN Reason Stop Dose Admin Amlodipine Besylate 10 mg 10/05/19 10:29 Norvasc - PO DAILY [facility] Calcium Acetate 667 mg 10/03/19 17:30 10/05/19 11:31 Phoslo - PO 667 mg TIDCM [facility] Administration Carvedilol 6.25 mg 10/03/19 22:00 10/05/19 10:13 Coreg - PO 6.25 mg BID [facility] Administration Docusate Sodium 100 mg 10/04/19 10:00 10/05/19 10:13 Colace - PO 100 mg DAILY [facility] Administration Epoetin Efrem 10,000 unit 10/06/19 08:00 Procrit - IVPUSH 10/06/19 08:01 ONCE ONE Heparin Sodium (Porcine) 5,000 unit 10/03/19 22:00 10/05/19 13:44 Heparin - SQ 5,000 unit TID [facility] Administration Hydralazine HCl 25 mg 10/05/19 22:00 Apresoline - PO BID [facility] Sodium Chloride 250 mls @ 3,000 mls/hr 10/05/19 15:03 Normal Saline - IV 10/06/19 15:03 PRN PRN Hypotension during Dialysis Insulin Aspart 1 vial 10/03/19 16:30 10/05/19 11:33 Novolog Vial Sliding Scale - SQ 2 units ACHS [facility] Administration Protocol Polyethylene Glycol 17 gm 10/04/19 10:00 10/05/19 10:13 Miralax (For Daily Use) - PO Not Given DAILY [facility] Sitagliptin Phosphate 25 mg 10/04/19 07:00 10/05/19 06:30 Januvia - PO 25 mg DAILY@0700 [facility] Administration ASSESSMENT/PLAN: Pt is a 69 y/o male with HTN, DM, CHF, "kidney infection" 2 weeks ago (states he was not given medication for this), who presents with 4 months of worsening BL LE swelling, SOB & syncope. He was admitted for dyspnea, went to ICU for acute renal failure requiring emergent dialysis. Patient transferred to floors. CKD w/metabolic acidosis - nephrology following (Dr. 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 Badillo) amlodipine 10 mg daily hydralazine increased 25 mg BID daily due to HTN Carvedilol 6.25 mg B Anemia: likely 2/2 CKD - hgb/hct stable - will continue SOPHIE with dialysis DM -SSI -BGMs -Januvia 25 mg daily -Will not continue metformin on d/c due to renal function DVT Ppx - heparin TID FEN - Renal diet - phosphate binder with meals - no IV fluids Dispo Patient needs outpatient dialysis placement. Follow up on Medicaid eligibility as secondary insurance option because patient only has medicare part B at present, which does not cover outpatient HD >>> no update yet ATTENDING PHYSICIAN STATEMENT I saw and evaluated the patient. I reviewed the resident's note and discussed the case with the resident. I agree with the resident's findings and plan as documented. Visit type - Emergency Visit Emergency Visit: Yes ED Registration Date: 09/25/19 Care time: The patient presented to the Emergency Department on the above date and was hospitalized for further evaluation of their emergent condition. - New Patient This patient is new to me today: No - Critical Care Critical Care patient: No - Discharge Referral Referred to [facility] No - Medication Review Med list reviewed for High Risk Meds patients 65 and older: Yes ATTENDING PHYSICIAN STATEMENT I saw and evaluated the patient. I reviewed the resident's note and discussed the case with the resident. I agree with the resident's findings and plan as documented. SUBJECTIVE: OBJECTIVE: ASSESSMENT AND PLAN:
--- NOTE | 2019-10-05 18:41 | PN ---
Teaching Attending Note Name of Resident: Nasrin Douglas ATTENDING PHYSICIAN STATEMENT I saw and evaluated the patient. I reviewed the resident's note and discussed the case with the resident. I agree with the resident's findings and plan as documented. SUBJECTIVE: No pain, no fever or chills, no JACKSON OBJECTIVE: NAD. CV: RRR, 3/6 SM at LLSb and Bedias Lungs: CTAB Ext: trace edema Abd: soft, Nt, Nd , NL BS ASSESSMENT AND PLAN: 69 y/o man with h/o hypertension, non-insulin dependent DM, cardiomyopathy, and possible CKD , who presneted with LE edema and was found to have severe diabetic nephropathy and hyperkalemia requiring HD. 1- ESRD 2/2 severe diabetic nephropathy 2- Hyperkalemia ,. resolved 3- Volume overload from renal disease 4- HTN 5- DM 6- anemia plan : - cont HD pending out pt HD center - needs hep B vaccine as out pt - cont norvasc ( increased) , ccb , coreg , and HZN ( increased ) - off metformin . will not resume - cont SSI - SOPHIE with HD - started on Asa and statin Heparin SQ
[2019-10-05] MEDS: ASPIRIN COATED 81 MG TABLET.EC PO SCH (20:35)
[2019-10-05] MEDS: hydrALAZINE HCL 25 MG TABLET (FP) PO SCH (21:29)
[2019-10-05] MEDS: CARVEDILOL 12.5 MG TABLET (FP) PO SCH (21:29)
[2019-10-05] MEDS: ATORVASTATIN CA 10 MG TABLET (FP) PO SCH (21:29)
[2019-10-06] MEDS: HEPARIN NA (PORCINE) 5,000 UNITS/ML 1ML VIAL SQ SCH ×3 (05:42→21:43)
[2019-10-06] MEDS: DOCUSATE SODIUM 100 MG CAPSULE (FP) PO SCH ×3 (05:42→21:43)
[2019-10-06] MEDS: INSULIN SLIDING SCALE (NOVOLOG) 1 VIAL SQ SCH ×4 (05:59→21:43)
[2019-10-06 07:32] LABS: HEMATOCRIT 28.4 % (35.4-49); HEMOGLOBIN 9.3 GM/dL (11.7-16.9); MCH 29.7 pg (25.7-33.7); MCHC 32.8 g/dl (32.0-35.9); MEAN CELL VOLUME 90.6 fl (80-96); MEAN PLT VOLUME 8.5 fl (7.5-11.1); PLATELET COUNT 148 K/MM3 (134-434); RBC 3.13 M/mm3 (4.00-5.60); RDW 16.4 % (11.9-15.9); WHITE BLOOD COUNT 6.1 K/mm3 (4.0-10.0)
[2019-10-06] MEDS ORDERED: SODIUM CHLORIDE 250 ML IV PRN (07:41)
[2019-10-06] MEDS ORDERED: EPOETIN ALFA 10,000 UNIT/1 ML VIAL IVPUSH ONE (08:00)
[2019-10-06 08:05] LABS: BLOOD UREA NITROGEN 44.9 mg/dL (7-18); CALCIUM 8.8 mg/dL (8.5-10.1); CREATININE 6.6 mg/dL (0.55-1.3); MAGNESIUM 2.3 mg/dL (1.8-2.4); PHOSPHOROUS 5.2 mg/dL (2.5-4.9); POTASSIUM 4.9 mmol/L (3.5-5.1)
[2019-10-06] MEDS: CALCIUM ACETATE 667 MG CAPSULE (FP) PO SCH ×3 (08:37→17:18)
[2019-10-06] MEDS: ASPIRIN COATED 81 MG TABLET.EC PO SCH (09:38)
[2019-10-06] MEDS: CARVEDILOL 12.5 MG TABLET (FP) PO SCH ×2 (09:38→21:43)
[2019-10-06] MEDS: amLODIPine BESYLATE 5 MG TABLET (FP) PO SCH (09:38)
[2019-10-06] MEDS: POLYETHYLENE GLYCOL 3350 119 GM BTL PO SCH (09:38)
[2019-10-06] MEDS: hydrALAZINE HCL 25 MG TABLET (FP) PO SCH ×2 (09:38→21:43)
--- NOTE | 2019-10-06 13:18 | PN ---
Progress Note, Physician Chief Complaint: Renal failure History of Present Illness: Seen and examined at the bedside awake and alert offers no acute complaints denies any sob, cp, fever, chills, N/V/D s/p dialysis this am - Current Medication List Current Medications: Active Medications Amlodipine Besylate (Norvasc -) 10 mg PO DAILY [facility] Last Admin: 10/06/19 09:38 Dose: Not Given Documented by: Aspirin (Ecotrin -) 81 mg PO DAILY [facility] Last Admin: 10/06/19 09:38 Dose: Not Given Documented by: Atorvastatin Calcium (Lipitor -) 10 mg PO HS [facility] Last Admin: 10/05/19 21:29 Dose: 10 mg Documented by: Calcium Acetate (Phoslo -) 667 mg PO TIDCM [facility] Last Admin: 10/06/19 12:36 Dose: 667 mg Documented by: Carvedilol (Coreg -) 12.5 mg PO BID [facility] Last Admin: 10/06/19 09:38 Dose: Not Given Documented by: Docusate Sodium (Colace -) 100 mg PO TID [facility] Last Admin: 10/06/19 05:42 Dose: 100 mg Documented by: Heparin Sodium (Porcine) (Heparin -) 5,000 unit SQ TID [facility] Last Admin: 10/06/19 05:42 Dose: 5,000 unit Documented by: Hydralazine HCl (Apresoline -) 25 mg PO BID [facility] Last Admin: 10/06/19 09:38 Dose: Not Given Documented by: Sodium Chloride (Normal Saline -) 250 mls @ 3,000 mls/hr IV PRN PRN PRN Reason: Hypotension during Dialysis Stop: 10/07/19 07:40 Insulin Aspart (Novolog Vial Sliding Scale -) 1 vial SQ [facility]; Protocol Last Admin: 10/06/19 11:00 Dose: Not Given Documented by: Polyethylene Glycol (Miralax (For Daily Use) -) 17 gm PO DAILY [facility] Last Admin: 10/06/19 09:38 Dose: Not Given Documented by: Sitagliptin Phosphate (Januvia -) 25 mg PO DAILY@0700 [facility] Last Admin: 10/06/19 05:59 Dose: 25 mg Documented by: - Objective Vital Signs: Vital Signs Temperature 98.4 F 10/06/19 06:00 Pulse Rate 66 10/06/19 11:03 Respiratory Rate 18 10/06/19 11:03 Blood Pressure 143/58 L 10/06/19 11:03 O2 Sat by Pulse Oximetry (%) 97 10/06/19 13:00 Constitutional: Yes: No Distress, Calm HENT: Yes: Atraumatic Neck: Yes: Supple Cardiovascular: Yes: Regular Rate and Rhythm Respiratory: Yes: Regular Gastrointestinal: Yes: Soft Genitourinary: No: Bladder Distention Edema: No Neurological: Yes: Alert, Oriented Labs: CBC, BMP 10/06/19 06:15 10/06/19 06:15 INR, PTT INR 1.03 (0.83-1.09) 09/25/19 00:09 Assessment/Plan 69 year old male with history of hypertension, non-insulin dependent DM, cardiomyopathy, and possible CKD who came from the [place] and presented to the ED with complaints of leg swelling and syncope and found to have renal failure and hyperkalemia. 1. 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 Hyperkalemia now resolved 3. Volume overload 4. Metabolic acidosis 5. Anemia 6. Hypertension 7. DM not on insulin 9. Cardiomyopathy Tolerated dialysis well this am. Awaiting insurance authorization for outpatient dialysis placement. Will ask vascular to eval for AVF placement given pt is delayed in his discharge and can attempt to have it placed prior to discharge. Renal diet. Thank you Luiz Galdamez DO
--- NOTE | 2019-10-06 14:18 | PN ---
Physical Exam: SUBJECTIVE: Patient seen and examined during HD. In no distress. Feels tired. Denies any chest pain, SOB, n/v/d. OBJECTIVE: Vital Signs 10/06/19 10/06/19 08:50 09:50 Pulse Rate 65 69 Respiratory 18 18 Rate Blood Pressure 139/62 137/56 L O2 Sat by Pulse Oximetry (%) GENERAL: The patient A&O x 3 HEAD: Normal with no signs of trauma. EYES: PERRL, extraocular movements intact, conjunctiva clear. ENT: moist mucous membranes LUNGS: Breath sounds equal, CTA BL HEART: Regular rate and rhythm, S1, S2, systolic murmur ABDOMEN: Soft, nondistended, nontender, normal bowel sounds EXTREMITIES: warm, well-perfused, no edema. NEUROLOGICAL: Normal speech Intake & Output 10/03/19 10/04/19 10/05/19 10/06/19 23:59 23:59 23:59 23:59 Intake Total 240 640 690 850 Output Total 326 42567 5068 Balance -230 -45326 008 -6433 Weight 152 lb 150 lb 2 oz 150 lb 2 oz Laboratory Results 10/06/19 10/06/19 06:15 06:15 WBC 6.1 RBC 3.13 L Hgb 9.3 L Hct 28.4 L MCV 90.6 MCH 29.7 MCHC 32.8 RDW 16.4 H Plt Count 148 MPV 8.5 Sodium 142 Potassium 4.9 Chloride 104 Carbon Dioxide 29 Anion Gap 9 BUN 44.9 H Creatinine 6.6 H Est GFR (CKD-EPI)AfAm 9.11 Est GFR (CKD-EPI)NonAf 7.86 POC Glucometer Random Glucose 144 H Calcium 8.8 Phosphorus 5.2 H Magnesium 2.3 Active Medications Generic Name Dose Route Start Last Admin Trade Name Freq PRN Reason Stop Dose Admin Amlodipine Besylate 10 mg 10/05/19 10:29 10/06/19 09:38 Norvasc - PO Not Given DAILY [facility] Aspirin 81 mg 10/05/19 19:00 10/06/19 09:38 Ecotrin - PO Not Given DAILY [facility] Atorvastatin Calcium 10 mg 10/05/19 22:00 10/05/19 21:29 Lipitor - PO 10 mg HS [facility] Administration Calcium Acetate 667 mg 10/03/19 17:30 10/06/19 12:36 Phoslo - PO 667 mg TIDCM [facility] Administration Carvedilol 12.5 mg 10/05/19 22:00 10/06/19 09:38 Coreg - PO Not Given BID [facility] Docusate Sodium 100 mg 10/05/19 22:00 10/06/19 05:42 Colace - PO 100 mg TID [facility] Administration Heparin Sodium (Porcine) 5,000 unit 10/03/19 22:00 10/06/19 05:42 Heparin - SQ 5,000 unit TID [facility] Administration Hydralazine HCl 25 mg 10/05/19 22:00 10/06/19 09:38 Apresoline - PO Not Given BID [facility] Sodium Chloride 250 mls @ 3,000 mls/hr 10/06/19 07:41 Normal Saline - IV 10/07/19 07:40 PRN PRN Hypotension during Dialysis Insulin Aspart 1 vial 10/03/19 16:30 10/06/19 11:00 Novolog Vial Sliding Scale - SQ Not Given ACHS [facility] Protocol Polyethylene Glycol 17 gm 10/04/19 10:00 10/06/19 09:38 Miralax (For Daily Use) - PO Not Given DAILY [facility] Sitagliptin Phosphate 25 mg 10/04/19 07:00 10/06/19 05:59 Januvia - PO 25 mg DAILY@0700 [facility] Administration ASSESSMENT/PLAN: Pt is a 69 y/o male with HTN, DM, CHF, "kidney infection" 2 weeks ago (states he was not given medication for this), who presents with 4 months of worsening BL LE swelling, SOB & syncope. He was admitted for dyspnea, went to ICU for acute renal failure requiring emergent dialysis. Patient transferred to floors. CKD w/metabolic acidosis - nephrology following (Dr. Galdamez) strict I&O sodium bicarb daily Will ask vascular to eval for AVF placement given pt is delayed in his discha rge and can attempt to have it placed prior to discharge. Dyspnea 2/2 volume overload, 2/2 acute CHF, 2/2 possible Cardiomyopathy - Cardiology following (Dr. Badillo) amlodipine 10 mg daily hydralazine 25 mg BID daily Carvedilol 6.25 mg B Anemia: likely 2/2 CKD - hgb/hct stable - continue SOPHIE w/dialysis DM -SSI -BGMs -Januvia 25 mg daily -Will not continue metformin on d/c due to renal function DVT Ppx - heparin TID FEN - Renal diet - phosphate binder with meals - no IV fluids Dispo: As per correctional case records supervisor Eber: Case has been escalated to administration. Patient is a new HD patient, but does not have Medicare part B for new HD. Finance has been notified to follow-up on applying for coverage. Will continue to follow. Visit type - Emergency Visit Emergency Visit: Yes ED Registration Date: 09/25/19 Care time: The patient presented to the Emergency Department on the above date and was hospitalized for further evaluation of their emergent condition. - New Patient This patient is new to me today: No - Critical Care Critical Care patient: No - Discharge Referral Referred to [facility] No - Medication Review Med list reviewed for High Risk Meds patients 65 and older: Yes ATTENDING PHYSICIAN STATEMENT I saw and evaluated the patient. I reviewed the resident's note and discussed the case with the resident. I agree with the resident's findings and plan as documented. SUBJECTIVE: OBJECTIVE: ASSESSMENT AND PLAN:
--- NOTE | 2019-10-06 14:56 | EKG ---
Test Reason : Blood Pressure : / mmHG Vent. Rate : 073 BPM Atrial Rate : 073 BPM P-R Int : 174 ms QRS Dur : 076 ms QT Int : 404 ms P-R-T Axes : 073 021 142 degrees QTc Int : 445 ms NORMAL SINUS RHYTHM ABNORMAL ECG WHEN COMPARED WITH ECG OF 26-SEP-2019 09:49, NO SIGNIFICANT CHANGE WAS FOUND Confirmed by EDYTA ZARAGOZA MD ([id number]) on 10/06/2019 2:55:39 PM Referred By: Confirmed By:EDYTA ZARAGOZA MD
[2019-10-06] MEDS ORDERED: INSULIN (NOVOLOG) ASPART 100 UNITS/ML 10ML VIAL ONE ×2 (17:25→21:07)
--- NOTE | 2019-10-06 17:34 | PN ---
Teaching Attending Note Name of Resident: Nasrin Douglas ATTENDING PHYSICIAN STATEMENT I saw and evaluated the patient. I reviewed the resident's note and discussed the case with the resident. I agree with the resident's findings and plan as documented. SUBJECTIVE: no pain , no SOB . seen during HD OBJECTIVE: NAD. CV: RRR, 3/6 SM at LLSb and [place] Lungs: CTAB Ext: trace edema Abd: soft, NT, Nd , NL BS ASSESSMENT AND PLAN: 69 y/o man with h/o hypertension, non-insulin dependent DM, cardiomyopathy, and possible CKD , who presneted with LE edema and was found to have severe diabetic nephropathy and hyperkalemia requiring HD. 1- ESRD 2/2 severe diabetic nephropathy 2- Hyperkalemia ,. resolved 3- Volume overload from renal disease 4- HTN 5- DM 6- Anemia plan : - cont HD pending out pt HD center - needs hep B vaccine as out pt - cont norvasc , ccb , coreg , and HZN - cont SSI - SOPHIE with HD - cont Asa and statin - possible AV fistula this admission Heparin SQ
[2019-10-06] MEDS: ATORVASTATIN CA 10 MG TABLET (FP) PO SCH (21:43)
--- NOTE | 2019-10-07 01:04 | PN ---
Progress Note, Physician Chief Complaint: Pt A&Ox3; pt feels fatigued after hemodialysis; no chest pain or dyspnea. History of Present Illness: Mr. Vuong is a 69 year old male (b. [facility]) with a significant past medical history of HTN, DM, CHF, and renal dysfunction, who presents to the ED with 4 months of bilateral LE edema. As per patient, he presented to the ED from the [facility] secondary to receiving inadequate care. Patient also endorses one month of intermittent shortness of breath, occasional mild sharp central chest pain on exertion lasting a few seconds, bilateral kidney pain and 4 episodes of syncope last week, with head injury. Denies fever, chills, headache, nausea, vomiting, or urinary changes. - Current Medication List Current Medications: Active Medications Amlodipine Besylate (Norvasc -) 10 mg PO DAILY [facility] Last Admin: 10/06/19 09:38 Dose: Not Given Documented by: Aspirin (Ecotrin -) 81 mg PO DAILY [facility] Last Admin: 10/06/19 09:38 Dose: Not Given Documented by: Atorvastatin Calcium (Lipitor -) 10 mg PO HS [facility] Last Admin: 10/06/19 21:43 Dose: 10 mg Documented by: Calcium Acetate (Phoslo -) 667 mg PO TIDCM [facility] Last Admin: 10/06/19 17:18 Dose: 667 mg Documented by: Carvedilol (Coreg -) 12.5 mg PO BID [facility] Last Admin: 10/06/19 21:43 Dose: 12.5 mg Documented by: Docusate Sodium (Colace -) 100 mg PO TID [facility] Last Admin: 10/06/19 21:43 Dose: 100 mg Documented by: Heparin Sodium (Porcine) (Heparin -) 5,000 unit SQ TID [facility] Last Admin: 10/06/19 21:43 Dose: 5,000 unit Documented by: Hydralazine HCl (Apresoline -) 25 mg PO BID [facility] Last Admin: 10/06/19 21:43 Dose: 25 mg Documented by: Sodium Chloride (Normal Saline -) 250 mls @ 3,000 mls/hr IV PRN PRN PRN Reason: Hypotension during Dialysis Stop: 10/07/19 07:40 Insulin Aspart (Novolog Vial Sliding Scale -) 1 vial SQ [facility]; Protocol Last Admin: 10/06/19 21:43 Dose: 2 units Documented by: Polyethylene Glycol (Miralax (For Daily Use) -) 17 gm PO DAILY [facility] Last Admin: 10/06/19 09:38 Dose: Not Given Documented by: Sitagliptin Phosphate (Januvia -) 25 mg PO DAILY@0700 [facility] Last Admin: 10/06/19 05:59 Dose: 25 mg Documented by: - Objective Vital Signs: Vital Signs Temperature 98.3 F 10/06/19 21:42 Pulse Rate 73 10/06/19 21:42 Respiratory Rate 18 10/06/19 21:42 Blood Pressure 159/65 10/06/19 21:42 O2 Sat by Pulse Oximetry (%) 98 10/06/19 21:42 Constitutional: Yes: Anxious Eyes: Yes: WNL HENT: Yes: WNL Labs: CBC, BMP 10/06/19 06:15 10/06/19 06:15 INR, PTT INR 1.03 (0.83-1.09) 09/25/19 00:09 Assessment/Plan Bilateral LE edema x several months Intermittent shortness of breath Syncope x 4 recently renal failure anemia severe hyperkalemia rhabdomyolysis HTN CHF elevated TNI EKG: NSR; ? old septal infarct ECHO: normal LVEF; mild-moderate LVH; small pericardial effusion Rec: Stress Lexiscan MIBI: small area of mildly intense inferior ischemia s/p renal biopsy; await results. s/p Permacath Increased amlodipine to 10 mg daily; increased hydralazine to 25 mg bid; continue Coreg;f/u BP serially. Corrected hyperkalemia: off Lokelma Cholesterol: LDL 68; HDL 45; continue atorvastatin; follow heart-healthy diet; i ncrease exercise. CK decreasing; (furosemide discontinued). Orthostatic Vital signs post-dialysis CT head: no acute intracranial pathology
[2019-10-07] MEDS: HEPARIN NA (PORCINE) 5,000 UNITS/ML 1ML VIAL SQ SCH ×3 (06:08→21:04)
[2019-10-07] MEDS: DOCUSATE SODIUM 100 MG CAPSULE (FP) PO SCH ×3 (06:09→21:08)
[2019-10-07] MEDS: INSULIN SLIDING SCALE (NOVOLOG) 1 VIAL SQ SCH ×4 (06:13→21:05)
[2019-10-07 08:34] LABS: CALCIUM 8.4 mg/dL (8.5-10.1); CREATININE 4.9 mg/dL (0.55-1.3); MAGNESIUM 2.1 mg/dL (1.8-2.4); PHOSPHOROUS 4.1 mg/dL (2.5-4.9); POTASSIUM 3.7 mmol/L (3.5-5.1)
[2019-10-07 08:36] LABS: BLOOD UREA NITROGEN 35.7 mg/dL (7-18)
[2019-10-07] MEDS: CALCIUM ACETATE 667 MG CAPSULE (FP) PO SCH ×3 (09:52→17:29)
[2019-10-07] MEDS: ASPIRIN COATED 81 MG TABLET.EC PO SCH (09:53)
[2019-10-07] MEDS: amLODIPine BESYLATE 5 MG TABLET (FP) PO SCH (09:53)
[2019-10-07] MEDS: CARVEDILOL 12.5 MG TABLET (FP) PO SCH ×2 (09:53→21:04)
[2019-10-07] MEDS: hydrALAZINE HCL 25 MG TABLET (FP) PO SCH ×2 (09:53→21:04)
[2019-10-07] MEDS: POLYETHYLENE GLYCOL 3350 119 GM BTL PO SCH ×2 (09:55→21:04)
--- NOTE | 2019-10-07 12:50 | PN ---
Physical Exam: SUBJECTIVE: Patient seen and examined beside, in no distress. Denies any CP, SOB, dysuria, hematuria. No issues overnight. No HD today. OBJECTIVE: Vital Signs 10/07/19 05:00 Temperature 98.4 F Pulse Rate 63 Respiratory 18 Rate Blood Pressure 167/65 O2 Sat by Pulse 98 Oximetry (%) GENERAL: The patient A&O x 3 HEAD: Normal with no signs of trauma. EYES: PERRL, extraocular movements intact, conjunctiva clear. ENT: moist mucous membranes LUNGS: Breath sounds equal, CTA BL HEART: Regular rate and rhythm, S1, S2, systolic murmur ABDOMEN: Soft, nondistended, nontender, normal bowel sounds EXTREMITIES: warm, well-perfused, no edema. NEUROLOGICAL: Normal speech Laboratory Results - last 24 hr 10/06/19 10/06/19 10/07/19 16:00 21:41 06:12 Sodium Potassium Chloride Carbon Dioxide Anion Gap BUN Creatinine Est GFR (CKD-EPI)AfAm Est GFR (CKD-EPI)NonAf POC Glucometer 198 182 152 Random Glucose Calcium Phosphorus Magnesium 10/07/19 06:53 Sodium 140 Potassium 3.7 Chloride 102 Carbon Dioxide 29 Anion Gap 8 BUN 35.7 H Creatinine 4.9 H Est GFR (CKD-EPI)AfAm 13.06 Est GFR (CKD-EPI)NonAf 11.27 POC Glucometer Random Glucose 140 H Calcium 8.4 L Phosphorus 4.1 Magnesium 2.1 Active Medications Generic Name Dose Route Start Last Admin Trade Name Freq PRN Reason Stop Dose Admin Amlodipine Besylate 10 mg 10/05/19 10:29 10/07/19 09:53 Norvasc - PO 10 mg DAILY [facility] Administration Aspirin 81 mg 10/05/19 19:00 10/07/19 09:53 Ecotrin - PO 81 mg DAILY [facility] Administration Atorvastatin Calcium 10 mg 10/05/19 22:00 10/06/19 21:43 Lipitor - PO 10 mg HS MAT Administration Calcium Acetate 667 mg 10/03/19 17:30 10/07/19 12:19 Phoslo - PO 667 mg TIDCM MAT Administration Carvedilol 12.5 mg 10/05/19 22:00 10/07/19 09:53 Coreg - PO 12.5 mg BID MAT Administration Docusate Sodium 100 mg 10/05/19 22:00 10/07/19 06:09 Colace - PO 100 mg TID MAT Administration Heparin Sodium (Porcine) 5,000 unit 10/03/19 22:00 10/07/19 06:08 Heparin - SQ 5,000 unit TID MAT Administration Hydralazine HCl 25 mg 10/05/19 22:00 10/07/19 09:53 Apresoline - PO 25 mg BID MAT Administration Insulin Aspart 1 vial 10/03/19 16:30 10/07/19 12:21 Novolog Vial Sliding Scale - SQ 2 units ACHS MAT Administration Protocol Polyethylene Glycol 17 gm 10/07/19 10:00 10/07/19 09:55 Miralax (For Daily Use) - PO Not Given BID [facility] Sitagliptin Phosphate 25 mg 10/04/19 07:00 10/07/19 06:08 Januvia - PO 25 mg DAILY@0700 [facility] Administration ASSESSMENT/PLAN: Pt is a 69 y/o male with HTN, DM, CHF, "kidney infection" 2 weeks ago (states he was not given medication for this), who presents with 4 months of worsening BL LE swelling, SOB & syncope. He was admitted for dyspnea, went to ICU for acute renal failure requiring emergent dialysis. Patient transferred to floors. CKD w/metabolic acidosis - nephrology following (Dr. Galdamez) strict I&O sodium bicarb daily Dr. Ly for eval for AVF placement ultrasound for AVF mapping done today Dyspnea 2/2 volume overload, 2/2 acute CHF, 2/2 possible Cardiomyopathy - Cardiology following (Dr. Badillo) amlodipine 10 mg daily hydralazine 25 mg BID daily Carvedilol 6.25 mg B Anemia: likely 2/2 CKD - hgb/hct stable - continue SOPHIE w/dialysis DM -SSI -BGMs -Januvia 25 mg daily -Will not continue metformin on d/c due to renal function DVT Ppx - heparin TID FEN - Renal diet - phosphate binder with meals - no IV fluids Dispo: As per senior case manager Eber: Case has been escalated to administration. Patient is a new HD patient, but does not have Medicare part B for new HD. Finance has been notified to follow-up on applying for coverage. Will continue to follow. Visit type - Emergency Visit Emergency Visit: Yes ED Registration Date: 09/25/19 Care time: The patient presented to the Emergency Department on the above date and was hospitalized for further evaluation of their emergent condition. - New Patient This patient is new to me today: No - Critical Care Critical Care patient: No - Discharge Referral Referred to [facility] Med P.C.: No - Medication Review Med list reviewed for High Risk Meds patients 65 and older: Yes ATTENDING PHYSICIAN STATEMENT I saw and evaluated the patient. I reviewed the resident's note and discussed the case with the resident. I agree with the resident's findings and plan as documented. SUBJECTIVE: OBJECTIVE: ASSESSMENT AND PLAN:
--- NOTE | 2019-10-07 13:38 | PN ---
Progress Note, Physician History of Present Illness: Mr. Vuong is a 69 year old male (. [facility]) with a significant past medical history of HTN, DM, CHF, and renal dysfunction, who presents to the ED with 4 months of bilateral LE edema. As per patient, he presented to the ED from the [facility] secondary to receiving inadequate care. Patient also endorses one month of intermittent shortness of breath, chest pain on exertion, bilateral kidney pain and 4 episodes of syncope last week, with head injury. Denies fever, chills, headache, nausea, vomiting, or urinary changes. - Current Medication List Current Medications: Active Medications Amlodipine Besylate (Norvasc -) 10 mg PO DAILY [facility] Last Admin: 10/07/19 09:53 Dose: 10 mg Documented by: Aspirin (Ecotrin -) 81 mg PO DAILY [facility] Last Admin: 10/07/19 09:53 Dose: 81 mg Documented by: Atorvastatin Calcium (Lipitor -) 10 mg PO HS [facility] Last Admin: 10/06/19 21:43 Dose: 10 mg Documented by: Calcium Acetate (Phoslo -) 667 mg PO TIDCM [facility] Last Admin: 10/07/19 12:19 Dose: 667 mg Documented by: Carvedilol (Coreg -) 12.5 mg PO BID [facility] Last Admin: 10/07/19 09:53 Dose: 12.5 mg Documented by: Docusate Sodium (Colace -) 100 mg PO TID [facility] Last Admin: 10/07/19 06:09 Dose: 100 mg Documented by: Heparin Sodium (Porcine) (Heparin -) 5,000 unit SQ TID [facility] Last Admin: 10/07/19 06:08 Dose: 5,000 unit Documented by: Hydralazine HCl (Apresoline -) 25 mg PO BID [facility] Last Admin: 10/07/19 09:53 Dose: 25 mg Documented by: Insulin Aspart (Novolog Vial Sliding Scale -) 1 vial SQ [facility]; Protocol Last Admin: 10/07/19 12:21 Dose: 2 units Documented by: Polyethylene Glycol (Miralax (For Daily Use) -) 17 gm PO BID [facility] Last Admin: 10/07/19 09:55 Dose: Not Given Documented by: Sitagliptin Phosphate (Januvia -) 25 mg PO DAILY@0700 [facility] Last Admin: 10/07/19 06:08 Dose: 25 mg Documented by: - Objective Vital Signs: Vital Signs Temperature 98.4 F 10/07/19 05:00 Pulse Rate 63 10/07/19 05:00 Respiratory Rate 18 10/07/19 05:00 Blood Pressure 167/65 10/07/19 05:00 O2 Sat by Pulse Oximetry (%) 98 10/07/19 05:00 Eyes: Yes: WNL, Conjunctiva Clear, EOM Intact HENT: Yes: WNL, Atraumatic, Normocephalic Neck: Yes: WNL, Supple, Trachea Midline Cardiovascular: Yes: WNL, Regular Rate and Rhythm Respiratory: Yes: WNL, Regular, CTA Bilaterally Gastrointestinal: Yes: WNL, Normal Bowel Sounds Genitourinary: Yes: WNL Musculoskeletal: Yes: WNL Extremities: Yes: WNL Edema: No Integumentary: Yes: WNL Neurological: Yes: WNL, Alert, Oriented ...Motor Strength: WNL Psychiatric: Yes: WNL Labs: CBC, BMP 10/06/19 06:15 10/07/19 06:53 INR, PTT INR 1.03 (0.83-1.09) 09/25/19 00:09 Problem List - Problems (1) Diabetes Code(s): E11.9 - TYPE 2 DIABETES MELLITUS WITHOUT COMPLICATIONS (2) Hyperkalemia Code(s): E87.5 - HYPERKALEMIA (3) Hypertension Code(s): I10 - ESSENTIAL (PRIMARY) HYPERTENSION (4) Kidney failure Code(s): N19 - UNSPECIFIED KIDNEY FAILURE Qualifiers: Renal failure chronicity: acute on chronic Assessment/Plan Bilateral LE edema x several months Intermittent shortness of breath Syncope x 4 recently renal failure anemia severe hyperkalemia rhabdomyolysis HTN CHF elevated TNI EKG: NSR; ? old septal infarct ECHO: normal LVEF; mild-moderate LVH; small pericardial effusion Rec: Stress Lexiscan MIBI: small area of mildly intense inferior ischemia s/p renal biopsy; await results. s/p Permacath Increased amlodipine to 10 mg daily; increased hydralazine to 25 mg bid; continue Coreg;f/u BP serially. Corrected hyperkalemia: off Lokelma Cholesterol: LDL 68; HDL 45; continue atorvastatin; follow heart-healthy diet; increase exercise. CK decreasing; (furosemide discontinued). Orthostatic Vital signs post-dialysis CT head: no acute intracranial pathology
--- NOTE | 2019-10-07 14:14 | PN ---
Progress Note, Physician Chief Complaint: Renal failure History of Present Illness: Seen and examined at the bedside awake and alert offers no acute complaints able to ambulate no sob, cp, fever, chills making urine s/p dialysis yesterday - Current Medication List Current Medications: Active Medications Amlodipine Besylate (Norvasc -) 10 mg PO DAILY [facility] Last Admin: 10/07/19 09:53 Dose: 10 mg Documented by: Aspirin (Ecotrin -) 81 mg PO DAILY [facility] Last Admin: 10/07/19 09:53 Dose: 81 mg Documented by: Atorvastatin Calcium (Lipitor -) 10 mg PO HS [facility] Last Admin: 10/06/19 21:43 Dose: 10 mg Documented by: Calcium Acetate (Phoslo -) 667 mg PO TIDCM [facility] Last Admin: 10/07/19 12:19 Dose: 667 mg Documented by: Carvedilol (Coreg -) 12.5 mg PO BID [facility] Last Admin: 10/07/19 09:53 Dose: 12.5 mg Documented by: Docusate Sodium (Colace -) 100 mg PO TID [facility] Last Admin: 10/07/19 06:09 Dose: 100 mg Documented by: Heparin Sodium (Porcine) (Heparin -) 5,000 unit SQ TID [facility] Last Admin: 10/07/19 06:08 Dose: 5,000 unit Documented by: Hydralazine HCl (Apresoline -) 25 mg PO BID [facility] Last Admin: 10/07/19 09:53 Dose: 25 mg Documented by: Insulin Aspart (Novolog Vial Sliding Scale -) 1 vial SQ [facility]; Protocol Last Admin: 10/07/19 12:21 Dose: 2 units Documented by: Polyethylene Glycol (Miralax (For Daily Use) -) 17 gm PO BID [facility] Last Admin: 10/07/19 09:55 Dose: Not Given Documented by: Sitagliptin Phosphate (Januvia -) 25 mg PO DAILY@0700 [facility] Last Admin: 10/07/19 06:08 Dose: 25 mg Documented by: - Objective Vital Signs: Vital Signs Temperature 98.4 F 10/07/19 05:00 Pulse Rate 63 10/07/19 05:00 Respiratory Rate 18 10/07/19 05:00 Blood Pressure 167/65 10/07/19 05:00 O2 Sat by Pulse Oximetry (%) 98 10/07/19 05:00 Constitutional: Yes: No Distress, Calm Eyes: Yes: Conjunctiva Clear HENT: Yes: Atraumatic Neck: Yes: Supple Cardiovascular: Yes: Regular Rate and Rhythm Respiratory: Yes: Regular, CTA Bilaterally Gastrointestinal: Yes: Soft Extremities: No: Cyanosis Edema: No Neurological: Yes: Alert, Oriented Labs: CBC, BMP 10/06/19 06:15 10/07/19 06:53 INR, PTT INR 1.03 (0.83-1.09) 09/25/19 00:09 Assessment/Plan 69 year old male with history of hypertension, non-insulin dependent DM, cardiomyopathy, and possible CKD who came from the [facility] and presented to the ED with complaints of leg swelling and syncope and found to have renal failure and hyperkalemia. 1. 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 Hyperkalemia now resolved 3. Volume overload 4. Metabolic acidosis 5. Anemia 6. Hypertension 7. DM not on insulin 9. Cardiomyopathy Clinically dong well on 3x weekly dialysis. Next planned dialysis is tomorrow. Vascular aware of patient and plans on doing AVF placement early next week s/p doppler of upper extremity done today Awaiting outpatient dialysis placement pending insurance authorization. Thank you Luiz Galdamez DO
--- NOTE | 2019-10-07 16:11 | PN ---
Teaching Attending Note Name of Resident: Nasrin Douglas ATTENDING PHYSICIAN STATEMENT I saw and evaluated the patient. I reviewed the resident's note and discussed the case with the resident. I agree with the resident's findings and plan as documented. SUBJECTIVE: no fever or chills. no pain, SOB , or cough : OBJECTIVE: NAD. CV: RRR, 3/6 SM at LLSb and [place] Lungs: CTAB Ext: trace edema Abd: soft, NT, Nd , NL BS ASSESSMENT AND PLAN: 69 y/o man with h/o hypertension, non-insulin dependent DM, cardiomyopathy, and possible CKD , who presneted with LE edema and was found to have severe diabetic nephropathy and hyperkalemia requiring HD. 1- ESRD 2/2 severe diabetic nephropathy 2- Hyperkalemia ,. resolved 3- Volume overload from renal disease 4- HTN 5- DM 6- Anemia plan : - cont HD pending out pt HD center - needs hep B vaccine as out pt - cont norvasc , ccb , coreg , and HZN . if bp contto be elevated , can increase HZN - cont SSI - SOPHIE with HD - cont Asa and statin - US of upper ext done , pending results for AV fistula placement Heparin SQ ASSESSMENT AND PLAN:
[2019-10-07] MEDS ORDERED: INSULIN (NOVOLOG) ASPART 100 UNITS/ML 10ML VIAL ONE (18:32)
[2019-10-07] MEDS: ATORVASTATIN CA 10 MG TABLET (FP) PO SCH (21:04)
[2019-10-08] MEDS: HEPARIN NA (PORCINE) 5,000 UNITS/ML 1ML VIAL SQ SCH ×3 (06:01→21:00)
[2019-10-08] MEDS: DOCUSATE SODIUM 100 MG CAPSULE (FP) PO SCH ×3 (06:02→21:00)
[2019-10-08] MEDS: INSULIN SLIDING SCALE (NOVOLOG) 1 VIAL SQ SCH ×4 (06:02→21:01)
[2019-10-08] MEDS ORDERED: SODIUM CHLORIDE 250 ML IV PRN (07:09)
[2019-10-08] MEDS: CALCIUM ACETATE 667 MG CAPSULE (FP) PO SCH ×3 (07:56→16:56)
[2019-10-08] MEDS ORDERED: EPOETIN ALFA 10,000 UNIT/1 ML VIAL IVPUSH ONE (08:00)
[2019-10-08 09:07] LABS: HEMATOCRIT 27.4 % (35.4-49); HEMOGLOBIN 8.9 GM/dL (11.7-16.9); MCH 29.2 pg (25.7-33.7); MCHC 32.4 g/dl (32.0-35.9); MEAN CELL VOLUME 90.1 fl (80-96); MEAN PLT VOLUME 8.9 fl (7.5-11.1); PLATELET COUNT 149 K/MM3 (134-434); RBC 3.05 M/mm3 (4.00-5.60); RDW 16.3 % (11.9-15.9); WHITE BLOOD COUNT 5.4 K/mm3 (4.0-10.0)
[2019-10-08 09:18] LABS: CALCIUM 8.6 mg/dL (8.5-10.1); CREATININE 6.7 mg/dL (0.55-1.3); MAGNESIUM 2.2 mg/dL (1.8-2.4); PHOSPHOROUS 4.8 mg/dL (2.5-4.9); POTASSIUM 3.7 mmol/L (3.5-5.1)
[2019-10-08] MEDS: hydrALAZINE HCL 25 MG TABLET (FP) PO SCH ×2 (10:03→21:00)
[2019-10-08] MEDS: amLODIPine BESYLATE 5 MG TABLET (FP) PO SCH (10:04)
[2019-10-08] MEDS: CARVEDILOL 12.5 MG TABLET (FP) PO SCH ×2 (10:04→21:00)
[2019-10-08] MEDS: POLYETHYLENE GLYCOL 3350 119 GM BTL PO SCH ×2 (10:04→21:00)
[2019-10-08] MEDS: ASPIRIN COATED 81 MG TABLET.EC PO SCH (10:04)
--- NOTE | 2019-10-08 14:34 | PN ---
Progress Note (short form) - Note Progress Note: Problems 1. 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 Hyperkalemia now resolved 3. Volume overload 4. Metabolic acidosis 5. Anemia 6. Hypertension 7. DM not on insulin 9. Cardiomyopathy presented to the ED with complaints of leg swelling and syncope and found to have renal failure and hyperkalemia. Active Medications Amlodipine Besylate (Norvasc -) 10 mg PO DAILY [facility] Last Admin: 10/08/19 10:04 Dose: Not Given Documented by: Aspirin (Ecotrin -) 81 mg PO DAILY [facility] Last Admin: 10/08/19 10:04 Dose: Not Given Documented by: Atorvastatin Calcium (Lipitor -) 10 mg PO HS [facility] Last Admin: 10/07/19 21:04 Dose: 10 mg Documented by: Calcium Acetate (Phoslo -) 667 mg PO TIDCM [facility] Last Admin: 10/08/19 11:51 Dose: 667 mg Documented by: Carvedilol (Coreg -) 12.5 mg PO BID [facility] Last Admin: 10/08/19 10:04 Dose: Not Given Documented by: Docusate Sodium (Colace -) 100 mg PO TID [facility] Last Admin: 10/08/19 06:02 Dose: Not Given Documented by: Heparin Sodium (Porcine) (Heparin -) 5,000 unit SQ TID [facility] Last Admin: 10/08/19 06:01 Dose: 5,000 unit Documented by: Hydralazine HCl (Apresoline -) 25 mg PO BID [facility] Last Admin: 10/08/19 10:03 Dose: Not Given Documented by: Sodium Chloride (Normal Saline -) 250 mls @ 3,000 mls/hr IV PRN PRN PRN Reason: Hypotension during Dialysis Stop: 10/09/19 07:08 Insulin Aspart (Novolog Vial Sliding Scale -) 1 vial SQ ACHS [facility]; Protocol Last Admin: 10/08/19 11:51 Dose: Not Given Documented by: Polyethylene Glycol (Miralax (For Daily Use) -) 17 gm PO BID [facility] Last Admin: 10/08/19 10:04 Dose: Not Given Documented by: Sitagliptin Phosphate (Januvia -) 25 mg PO DAILY@0700 [facility] Last Admin: 10/08/19 06:02 Dose: 25 mg Documented by: Last Vital Signs Temp Pulse Resp BP Pulse Ox 98.2 F 77 18 135/80 99 08/22/20 08:25 10/08/19 11:35 10/08/19 11:35 10/08/19 11:35 10/08/19 09:00 Lungs clear Heart reg Abd soft nontender Ext mild edema CBC, BMP 10/08/19 08:30 10/08/19 08:30 IMP ESRD on HD s/p Uneventful HD today Plan- For HD next week follow labs tomorrow
--- NOTE | 2019-10-08 16:09 | PN ---
Teaching Attending Note Name of Resident: Franklyn Cosby ATTENDING PHYSICIAN STATEMENT I saw and evaluated the patient. I reviewed the resident's note and discussed the case with the resident. I agree with the resident's findings and plan as documented. SUBJECTIVE: no pain, no fever or chills. getting HD OBJECTIVE: NAD. CV: RRR, 3/6 SM at LLSb and [place] Lungs: CTAB anteriorly Ext: trace edema Abd: soft, NT, Nd , NL BS ASSESSMENT AND PLAN: 69 y/o man with h/o hypertension, non-insulin dependent DM, cardiomyopathy, and possible CKD , who presneted with LE edema and was found to have severe diabetic nephropathy and hyperkalemia requiring HD. 1- ESRD 2/2 severe diabetic nephropathy 2- Hyperkalemia ,. resolved 3- Volume overload from renal disease 4- HTN 5- DM 6- Anemia plan : - cont HD pending out pt HD center - needs hep B vaccine as out pt - cont norvasc , ccb , coreg , and HZN . if bp cont to be elevated , can increase HZN - cont SSI - SOPHIE with HD - cont Asa and statin - fistula as in patietn Heparin SQ
--- NOTE | 2019-10-08 16:52 | PN ---
Physical Exam: SUBJECTIVE: Patient seen and examined at bedside during HD, states he is tired, no acute events OBJECTIVE: Vital Signs Period Temp Pulse Resp BP Sys/Lopes Pulse Ox Last 24 Hr 98.0 F-99.3 F 61-77 18-19 124-166/61-89 96-99 GENERAL: The patient AOx3 HEAD: Normal with no signs of trauma. EYES: PERRL, extraocular movements intact, conjunctiva clear. LUNGS: Clear B/L HEART: RRR, systolic murmur 3/6 at LSB ABDOMEN: Soft, nondistended, nontender, normal bowel sounds EXTREMITIES: warm, well-perfused, no edema. NEUROLOGICAL: Normal speech Laboratory Results - last 24 hr 10/07/19 10/07/19 10/07/19 12:20 17:26 20:52 WBC RBC Hgb Hct MCV MCH MCHC RDW Plt Count MPV Sodium Potassium Chloride Carbon Dioxide Anion Gap BUN Creatinine Est GFR (CKD-EPI)AfAm Est GFR (CKD-EPI)NonAf POC Glucometer 198 214 129 Random Glucose Calcium Phosphorus Magnesium 10/08/19 10/08/19 10/08/19 05:59 08:30 08:30 WBC 5.4 RBC 3.05 L Hgb 8.9 L Hct 27.4 L MCV 90.1 MCH 29.2 MCHC 32.4 RDW 16.3 H Plt Count 149 MPV 8.9 Sodium 138 Potassium 3.7 Chloride 100 Carbon Dioxide 28 Anion Gap 10 BUN 55.0 H Creatinine 6.7 H Est GFR (CKD-EPI)AfAm 8.95 Est GFR (CKD-EPI)NonAf 7.72 POC Glucometer 127 Random Glucose 204 H Calcium 8.6 Phosphorus 4.8 Magnesium 2.2 10/08/19 10/08/19 11:49 16:39 WBC RBC Hgb Hct MCV MCH MCHC RDW Plt Count MPV Sodium Potassium Chloride Carbon Dioxide Anion Gap BUN Creatinine Est GFR (CKD-EPI)AfAm Est GFR (CKD-EPI)NonAf POC Glucometer 139 159 Random Glucose Calcium Phosphorus Magnesium Active Medications Generic Name Dose Route Start Last Admin Trade Name Freq PRN Reason Stop Dose Admin Amlodipine Besylate 10 mg 10/05/19 10:29 10/08/19 10:04 Norvasc - PO Not Given DAILY MAT Aspirin 81 mg 10/05/19 19:00 10/08/19 10:04 Ecotrin - PO Not Given DAILY MAT Atorvastatin Calcium 10 mg 10/05/19 22:00 10/07/19 21:04 Lipitor - PO 10 mg HS MAT Administration Calcium Acetate 667 mg 10/03/19 17:30 10/08/19 11:51 Phoslo - PO 667 mg TIDCM MAT Administration Carvedilol 12.5 mg 10/05/19 22:00 10/08/19 10:04 Coreg - PO Not Given BID MAT Docusate Sodium 100 mg 10/05/19 22:00 10/08/19 14:41 Colace - PO 100 mg TID MAT Administration Heparin Sodium (Porcine) 5,000 unit 10/03/19 22:00 10/08/19 14:41 Heparin - SQ 5,000 unit TID MAT Administration Hydralazine HCl 25 mg 10/05/19 22:00 10/08/19 10:03 Apresoline - PO Not Given BID [facility] Sodium Chloride 250 mls @ 3,000 mls/hr 10/08/19 07:09 Normal Saline - IV 10/09/19 07:08 PRN PRN Hypotension during Dialysis Insulin Aspart 1 vial 10/03/19 16:30 10/08/19 11:51 Novolog Vial Sliding Scale - SQ Not Given ACHS [facility] Protocol Polyethylene Glycol 17 gm 10/07/19 10:00 10/08/19 10:04 Miralax (For Daily Use) - PO Not Given BID MAT Sitagliptin Phosphate 25 mg 10/04/19 07:00 10/08/19 06:02 Januvia - PO 25 mg DAILY@0700 [facility] Administration ASSESSMENT/PLAN: 69M with HTN, DM, CHF, presented with SOB & syncope, was admitted for ESRD requiring HD #ESRD - nephrology on board (Dr. Galdamez) - HD 3/week, pending AVF in [place] (Dr. Ly) - strict I&O with sodium bicarb daily #Hx of CHF/HTN - Cardio on board - Has had BP in 150/90s, increased Coreg to 12.5 BID, continue Norvasc 10mg, Hydralazine 25mg BID #Anemia: likely 2/2 CKD - hgb/hct stable - continue SOPHIE w/dialysis #Hx of DM -ISS, BGMs -Januvia 25 mg daily -Holding home Metformin #FEN - Renal diet - phosphate binder with meals - Limit fluid intake #Prophylaxis - Heparin 5k #Dispo: - Pt does not have outpatient coverage, plan pending ATTENDING PHYSICIAN STATEMENT I saw and evaluated the patient. I reviewed the resident's note and discussed the case with the resident. I agree with the resident's findings and plan as documented. SUBJECTIVE: OBJECTIVE: ASSESSMENT AND PLAN:
[2019-10-08] MEDS ORDERED: INSULIN (NOVOLOG) ASPART 100 UNITS/ML 10ML VIAL ONE (16:59)
[2019-10-08] MEDS: ATORVASTATIN CA 10 MG TABLET (FP) PO SCH (21:00)
[2019-10-09] MEDS: DOCUSATE SODIUM 100 MG CAPSULE (FP) PO SCH ×4 (06:11→22:20)
[2019-10-09] MEDS: HEPARIN NA (PORCINE) 5,000 UNITS/ML 1ML VIAL SQ SCH ×3 (06:12→22:20)
[2019-10-09] MEDS: INSULIN SLIDING SCALE (NOVOLOG) 1 VIAL SQ SCH ×4 (06:12→22:20)
[2019-10-09] MEDS: CALCIUM ACETATE 667 MG CAPSULE (FP) PO SCH ×3 (07:59→17:03)
[2019-10-09 08:16] LABS: BASO % 0.8 % (0-2.0); EOS % 4.1 % (0-4.5); HEMATOCRIT 29.4 % (35.4-49); HEMOGLOBIN 9.5 GM/dL (11.7-16.9); LYMPH % 21.1 % (8-40); MCH 29.4 pg (25.7-33.7); MCHC 32.3 g/dl (32.0-35.9); MEAN PLT VOLUME 8.7 fl (7.5-11.1); MONO % 11.3 % (3.8-10.2); NEUT % 62.7 % (42.8-82.8); PLATELET COUNT 153 K/MM3 (134-434); RBC 3.23 M/mm3 (4.00-5.60); RDW 16.4 % (11.9-15.9); WHITE BLOOD COUNT 6.3 K/mm3 (4.0-10.0)
[2019-10-09 08:47] LABS: BILIRUBIN,TOTAL 0.5 mg/dL (0.2-1); BLOOD UREA NITROGEN 35.5 mg/dL (7-18); CALCIUM 8.4 mg/dL (8.5-10.1); CREATININE 5.6 mg/dL (0.55-1.3); MAGNESIUM 2.2 mg/dL (1.8-2.4); PHOSPHOROUS 3.9 mg/dL (2.5-4.9); POTASSIUM 3.8 mmol/L (3.5-5.1)
[2019-10-09 08:48] LABS: TOT PROT 6.3 g/dl (6.4-8.2)
[2019-10-09] MEDS: ASPIRIN COATED 81 MG TABLET.EC PO SCH (09:26)
[2019-10-09] MEDS: CARVEDILOL 12.5 MG TABLET (FP) PO SCH ×2 (09:27→22:20)
[2019-10-09] MEDS: POLYETHYLENE GLYCOL 3350 119 GM BTL PO SCH ×2 (09:27→21:45)
[2019-10-09] MEDS: amLODIPine BESYLATE 5 MG TABLET (FP) PO SCH (09:27)
[2019-10-09] MEDS: hydrALAZINE HCL 25 MG TABLET (FP) PO SCH (09:27)
[2019-10-09] MEDS ORDERED: INSULIN (NOVOLOG) ASPART 100 UNITS/ML 10ML VIAL ONE ×2 (11:34→22:17)
[2019-10-09] MEDS ORDERED: hydrALAZINE HCL 50 MG TABLET (FP) PO SCH (15:40)
--- NOTE | 2019-10-09 15:41 | PN ---
Progress Note (short form) - Note Progress Note: Subjective: no fever or chills. noapin , nO SOB Objective: Vital Signs: Last Vital Signs Temp Pulse Resp BP Pulse Ox 99 F 67 18 151/65 98 10/09/19 09:00 10/09/19 09:00 10/09/19 09:00 10/09/19 09:00 10/09/19 09:00 Laboratory Results - last 24 hr 10/08/19 10/08/19 10/09/19 16:39 20:50 05:50 WBC RBC Hgb Hct MCV MCH MCHC RDW Plt Count MPV Absolute Neuts (auto) Neutrophils % Lymphocytes % Monocytes % Eosinophils % Basophils % Nucleated RBC % Sodium Potassium Chloride Carbon Dioxide Anion Gap BUN Creatinine Est GFR (CKD-EPI)AfAm Est GFR (CKD-EPI)NonAf POC Glucometer 159 140 138 Random Glucose Calcium Phosphorus Magnesium Total Bilirubin AST ALT Alkaline Phosphatase Total Protein Albumin 10/09/19 10/09/19 10/09/19 07:10 07:10 11:32 WBC 6.3 RBC 3.23 L Hgb 9.5 L Hct 29.4 L MCV 91.0 MCH 29.4 MCHC 32.3 RDW 16.4 H Plt Count 153 MPV 8.7 Absolute Neuts (auto) 4.0 Neutrophils % 62.7 Lymphocytes % 21.1 Monocytes % 11.3 H Eosinophils % 4.1 Basophils % 0.8 Nucleated RBC % 0 Sodium 139 Potassium 3.8 Chloride 101 Carbon Dioxide 30 Anion Gap 8 BUN 35.5 H Creatinine 5.6 H Est GFR (CKD-EPI)AfAm 11.12 Est GFR (CKD-EPI)NonAf 9.59 POC Glucometer 156 Random Glucose 142 H Calcium 8.4 L Phosphorus 3.9 Magnesium 2.2 Total Bilirubin 0.5 AST 36 ALT 65 H Alkaline Phosphatase 68 Total Protein 6.3 L Albumin 3.0 L Physical Exam: NAD. CV: RRR, 3/6 SM at LLSb and [place] Lungs: CTAB Ext: No edema or erythema on upper or lower extremities Abd: soft, NT, Nd , NL BS ASSESSMENT AND PLAN: 69 y/o man with h/o hypertension, non-insulin dependent DM, cardiomyopathy, and possible CKD , who presneted with LE edema and was found to have severe diabetic nephropathy and hyperkalemia requiring HD. 1- ESRD 2/2 severe diabetic nephropathy 2- Hyperkalemia ,. resolved 3- Volume overload from renal disease 4- HTN 5- DM 6- Anemia plan : - cont HD pending out pt HD center - needs hep B vaccine as out pt - cont norvasc , ccb , coreg , and HZN . increase HZN to 50 BID - cont SSI - SOPHIE with HD - cont Asa and statin - fistula as in patient Heparin SQ Visit type - Emergency Visit Emergency Visit: Yes ED Registration Date: 09/25/19 Care time: The patient presented to the Emergency Department on the above date and was hospitalized for further evaluation of their emergent condition. - New Patient This patient is new to me today: No - Critical Care Critical Care patient: No - Medication Review Med list reviewed for High Risk Meds patients 65 and older: Yes
--- NOTE | 2019-10-09 20:34 | PN ---
Progress Note (short form) - Note Progress Note: Problems 1. 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 Hyperkalemia now resolved 3. Volume overload 4. Metabolic acidosis 5. Anemia 6. Hypertension 7. DM not on insulin 9. Cardiomyopathy presented to the ED with complaints of leg swelling and syncope and found to have renal failure and hyperkalemia. Active Medications Amlodipine Besylate (Norvasc -) 10 mg PO DAILY [facility] Last Admin: 10/09/19 09:27 Dose: 10 mg Documented by: Aspirin (Ecotrin -) 81 mg PO DAILY [facility] Last Admin: 10/09/19 09:26 Dose: 81 mg Documented by: Atorvastatin Calcium (Lipitor -) 10 mg PO HS [facility] Last Admin: 10/08/19 21:00 Dose: 10 mg Documented by: Calcium Acetate (Phoslo -) 667 mg PO TIDCM [facility] Last Admin: 10/09/19 17:03 Dose: 667 mg Documented by: Carvedilol (Coreg -) 12.5 mg PO BID [facility] Last Admin: 10/09/19 09:27 Dose: 12.5 mg Documented by: Docusate Sodium (Colace -) 100 mg PO TID [facility] Last Admin: 10/09/19 14:15 Dose: 100 mg Documented by: Heparin Sodium (Porcine) (Heparin -) 5,000 unit SQ TID [facility] Last Admin: 10/09/19 14:10 Dose: Not Given Documented by: Hydralazine HCl (Apresoline -) 50 mg PO BID [facility] Insulin Aspart (Novolog Vial Sliding Scale -) 1 vial SQ [facility]; Protocol Last Admin: 10/09/19 16:59 Dose: 2 units Documented by: Polyethylene Glycol (Miralax (For Daily Use) -) 17 gm PO BID [facility] Last Admin: 10/09/19 09:27 Dose: Not Given Documented by: Sitagliptin Phosphate (Januvia -) 25 mg PO DAILY@0700 [facility] Last Admin: 10/09/19 06:10 Dose: 25 mg Documented by: Last Vital Signs Temp Pulse Resp BP Pulse Ox 98.8 F 75 18 153/79 86 L 10/09/19 17:00 10/09/19 17:00 10/09/19 17:00 10/09/19 17:00 10/09/19 17:00 Lungs clear Heart reg Abd soft nontender Ext mild edema CBC, BMP 10/08/19 08:30 10/08/19 08:30 IMP ESRD on HD s/p Uneventful HD today Plan- For HD next week follow labs tomorrow
[2019-10-09] MEDS ORDERED: SODIUM CHLORIDE 250 ML IV PRN (20:35)
--- NOTE | 2019-10-09 21:15 | PDOC ---
Documentation entered by Sharmin Paulino SCRIBE, acting as scribe for Selena Cortez MD. Selena Cortez MD: This documentation has been prepared by the scribeJefferson Sydney, SCRIBE, under my direction and personally reviewed by me in its entirety. I confirm that the documentation accurately reflects all work, treatment, procedures, and medical decision making performed by me. Attending Attestation - Resident Resident Name: Esther Franco - ED Attending Attestation I have performed the following: I have examined & evaluated the patient, The case was reviewed & discussed with the resident, I agree w/resident's findings & plan, Exceptions are as noted - HPI HPI: 09/25/19 00:02 Patient is a 69 year old male with a significant past medical history of HTN, DM, kidney complications who presents to the ED with 4 months of bilateral LE edema. As per patient, he presented to the ED from the [facility] secondary to receiving inadequate care. Patient also endorses one month of intermittent shortness of breath, chest pain on exertion, bilateral kidney pain and 4 episodes of syncope last week, with head injury. Denies fever, chills, headache, nausea, vomiting, or urinary changes. - Physicial Exam PE: 09/25/19 00:02 GENERAL: Well-appearing, well-nourished. No apparent distress. HEENT: Normocephalic, atraumatic. PERRL, EOM intact. CARDIOVASCULAR: Normal S1, S2. Regular rate and rhythm. PULMONARY: Clear to auscultation bilaterally. ABDOMEN: Soft, non-distended, non-tender. EXTREMITIES: Normal ROM in all four extremities. No gross deformities. SKIN: Warm, dry. No rash NEUROLOGICAL: No focal neurological deficits. - Medical Decision Making 09/25/19 02:23 Patient Name: ERWIN JIMENEZ THIS IS A PRELIMINARY REPORT FROM [facility] Exam: CT of the cervical spine without contrast Technique: Thin contiguous axial images through the cervical vertebra were obtained without use of contrast. Coronal and sagittal reconstructed images were generated. Number of images:513 Indication: trauma. Fall. Date of service: 2019-09-25 00:41:16 Comparison:None Impression: 1. There is no definitive evidence of acute compression fracture or subluxation seen. 2. There is straightening of the normal lordotic curvature which may be seen with muscular strain. 3. There is multilevel multi-factorial spondylosis Correlation with clinical presentation is advised. If concern or symptomatology persists, correlation with MRI is advised. Discharge - Discharge Information Problems reviewed: Yes Clinical Impression/Diagnosis: Hyperkalemia Kidney failure Qualifiers: Renal failure chronicity: acute on chronic Condition: Stable - Follow up/Referral - Patient Discharge Instructions - Post Discharge Activity
[2019-10-09] MEDS: hydrALAZINE HCL 50 MG TABLET (FP) PO SCH (22:20)
[2019-10-09] MEDS: ATORVASTATIN CA 10 MG TABLET (FP) PO SCH (22:20)
[2019-10-10] MEDS: INSULIN SLIDING SCALE (NOVOLOG) 1 VIAL SQ SCH ×4 (06:14→21:35)
[2019-10-10] MEDS: HEPARIN NA (PORCINE) 5,000 UNITS/ML 1ML VIAL SQ SCH ×2 (06:18→14:27)
[2019-10-10] MEDS: DOCUSATE SODIUM 100 MG CAPSULE (FP) PO SCH ×3 (06:18→21:34)
[2019-10-10] MEDS: CALCIUM ACETATE 667 MG CAPSULE (FP) PO SCH ×3 (08:20→16:42)
[2019-10-10 09:24] LABS: BLOOD UREA NITROGEN 58.3 mg/dL (7-18); CALCIUM 8.6 mg/dL (8.5-10.1); CREATININE 6.9 mg/dL (0.55-1.3)
[2019-10-10] MEDS: CARVEDILOL 12.5 MG TABLET (FP) PO SCH ×2 (09:32→21:35)
[2019-10-10] MEDS: amLODIPine BESYLATE 5 MG TABLET (FP) PO SCH (09:32)
[2019-10-10] MEDS: hydrALAZINE HCL 50 MG TABLET (FP) PO SCH ×2 (09:32→21:35)
[2019-10-10] MEDS: ASPIRIN COATED 81 MG TABLET.EC PO SCH (09:32)
--- NOTE | 2019-10-10 10:10 | PN ---
Progress Note, Physician History of Present Illness: Mr. Vuong is a 69 year old male ([employer]) with a significant past medical history of HTN, DM, CHF, and renal dysfunction, who presents to the ED with 4 months of bilateral LE edema. As per patient, he presented to the ED from the [facility] secondary to receiving inadequate care. Patient also endorses one month of intermittent shortness of breath, chest pain on exertion, bilateral kidney pain and 4 episodes of syncope last week, with head injury. Denies fever, chills, headache, nausea, vomiting, or urinary changes. - Current Medication List Current Medications: Active Medications Amlodipine Besylate (Norvasc -) 10 mg PO DAILY [facility] Last Admin: 10/10/19 09:32 Dose: 10 mg Documented by: Aspirin (Ecotrin -) 81 mg PO DAILY [facility] Last Admin: 10/10/19 09:32 Dose: 81 mg Documented by: Atorvastatin Calcium (Lipitor -) 10 mg PO HS [facility] Last Admin: 10/09/19 22:20 Dose: 10 mg Documented by: Calcium Acetate (Phoslo -) 667 mg PO TIDCM [facility] Last Admin: 10/10/19 08:20 Dose: 667 mg Documented by: Carvedilol (Coreg -) 12.5 mg PO BID [facility] Last Admin: 10/10/19 09:32 Dose: 12.5 mg Documented by: Docusate Sodium (Colace -) 100 mg PO TID [facility] Last Admin: 10/10/19 06:18 Dose: 100 mg Documented by: Heparin Sodium (Porcine) (Heparin -) 5,000 unit SQ TID [facility] Last Admin: 10/10/19 06:18 Dose: 5,000 unit Documented by: Hydralazine HCl (Apresoline -) 50 mg PO BID [facility] Last Admin: 10/10/19 09:32 Dose: 50 mg Documented by: Sodium Chloride (Normal Saline -) 250 mls @ 3,000 mls/hr IV PRN PRN PRN Reason: Hypotension during Dialysis Stop: 10/10/19 20:35 Insulin Aspart (Novolog Vial Sliding Scale -) [address] [facility]; Protocol Last Admin: 10/10/19 06:14 Dose: Not Given Documented by: Polyethylene Glycol (Miralax (For Daily Use) -) 17 gm PO BID [facility] Last Admin: 10/09/19 21:45 Dose: Not Given Documented by: Sitagliptin Phosphate (Coryuvia -) 25 mg PO DAILY@0700 [facility] Last Admin: 10/10/19 06:18 Dose: 25 mg Documented by: - Objective Vital Signs: Vital Signs Temperature 98.9 F 10/10/19 05:04 Pulse Rate 65 10/10/19 05:04 Respiratory Rate 18 10/10/19 05:04 Blood Pressure 138/64 10/10/19 05:04 O2 Sat by Pulse Oximetry (%) 97 10/10/19 05:04 Eyes: Yes: WNL, Conjunctiva Clear, EOM Intact HENT: Yes: WNL, Atraumatic, Normocephalic Neck: Yes: WNL, Supple, Trachea Midline Cardiovascular: Yes: WNL, Regular Rate and Rhythm Respiratory: Yes: WNL, Regular, CTA Bilaterally Gastrointestinal: Yes: WNL, Normal Bowel Sounds Genitourinary: Yes: WNL Musculoskeletal: Yes: WNL Extremities: Yes: WNL Edema: No Integumentary: Yes: WNL Neurological: Yes: WNL, Alert, Oriented ...Motor Strength: WNL Psychiatric: Yes: WNL Labs: CBC, BMP 10/09/19 07:10 10/10/19 08:08 INR, PTT INR 1.03 (0.83-1.09) 09/25/19 00:09 Problem List - Problems (1) Diabetes Code(s): E11.9 - TYPE 2 DIABETES MELLITUS WITHOUT COMPLICATIONS (2) Hyperkalemia Code(s): E87.5 - HYPERKALEMIA (3) Hypertension Code(s): I10 - ESSENTIAL (PRIMARY) HYPERTENSION (4) Kidney failure Code(s): N19 - UNSPECIFIED KIDNEY FAILURE Qualifiers: Renal failure chronicity: acute on chronic Assessment/Plan Bilateral LE edema x several months Intermittent shortness of breath Syncope x 4 recently renal failure anemia severe hyperkalemia rhabdomyolysis HTN CHF elevated TNI EKG: NSR; ? old septal infarct ECHO: normal LVEF; mild-moderate LVH; small pericardial effusion Rec: Stress Lexiscan MIBI: small area of mildly intense inferior ischemia s/p renal biopsy; await results. s/p Permacath Increased amlodipine to 10 mg daily; increased hydralazine to 25 mg bid; continue Coreg;f/u BP serially. Corrected hyperkalemia: off Lokelma Cholesterol: LDL 68; HDL 45; continue atorvastatin; follow heart-healthy diet; increase exercise. CK decreasing; (furosemide discontinued). Orthostatic Vital signs post-dialysis CT head: no acute intracranial pathology
[2019-10-10] MEDS ORDERED: INSULIN (NOVOLOG) ASPART 100 UNITS/ML 10ML VIAL ONE (11:47)
[2019-10-10] MEDS: POLYETHYLENE GLYCOL 3350 119 GM BTL PO SCH ×2 (11:56→23:39)
--- NOTE | 2019-10-10 17:16 | PN ---
Progress Note, Physician Chief Complaint: Renal failure History of Present Illness: Seen and examined at the bedside awake and alert offers no acute complaints no sob, cp, fever, chills - Current Medication List Current Medications: Active Medications Amlodipine Besylate (Norvasc -) 10 mg PO DAILY [facility] Last Admin: 10/10/19 09:32 Dose: 10 mg Documented by: Aspirin (Ecotrin -) 81 mg PO DAILY [facility] Last Admin: 10/10/19 09:32 Dose: 81 mg Documented by: Atorvastatin Calcium (Lipitor -) 10 mg PO HS [facility] Last Admin: 10/09/19 22:20 Dose: 10 mg Documented by: Calcium Acetate (Phoslo -) 667 mg PO TIDCM [facility] Last Admin: 10/10/19 16:42 Dose: 667 mg Documented by: Carvedilol (Coreg -) 12.5 mg PO BID [facility] Last Admin: 10/10/19 09:32 Dose: 12.5 mg Documented by: Docusate Sodium (Colace -) 100 mg PO TID [facility] Last Admin: 10/10/19 14:26 Dose: 100 mg Documented by: Heparin Sodium (Porcine) (Heparin -) 5,000 unit SQ TID [facility] Last Admin: 10/10/19 14:27 Dose: Not Given Documented by: Hydralazine HCl (Apresoline -) 50 mg PO BID [facility] Last Admin: 10/10/19 09:32 Dose: 50 mg Documented by: Sodium Chloride (Normal Saline -) 250 mls @ 3,000 mls/hr IV PRN PRN PRN Reason: Hypotension during Dialysis Stop: 10/10/19 20:35 Insulin Aspart (Novolog Vial Sliding Scale -) 1 vial SQ [facility]; Protocol Last Admin: 10/10/19 16:42 Dose: 2 units Documented by: Polyethylene Glycol (Miralax (For Daily Use) -) 17 gm PO BID [facility] Last Admin: 10/10/19 11:56 Dose: Not Given Documented by: Sitagliptin Phosphate (Januvia -) 25 mg PO DAILY@0700 [facility] Last Admin: 10/10/19 06:18 Dose: 25 mg Documented by: - Objective Vital Signs: Vital Signs Temperature 98.6 F 10/10/19 13:00 Pulse Rate 66 10/10/19 13:00 Respiratory Rate 18 10/10/19 13:00 Blood Pressure 144/58 L 10/10/19 13:00 O2 Sat by Pulse Oximetry (%) 98 10/10/19 13:00 Constitutional: Yes: No Distress, Calm HENT: Yes: Atraumatic Neck: Yes: Supple Cardiovascular: Yes: Regular Rate and Rhythm Respiratory: Yes: Regular, CTA Bilaterally Gastrointestinal: Yes: Soft Extremities: No: Cyanosis Edema: No Neurological: Yes: Alert, Oriented Labs: CBC, BMP 10/09/19 07:10 10/10/19 08:08 INR, PTT INR 1.03 (0.83-1.09) 09/25/19 00:09 Assessment/Plan 69 year old male with history of hypertension, non-insulin dependent DM, cardiomyopathy, and possible CKD who came from the [place] and presented to the ED with complaints of leg swelling and syncope and found to have renal failure and hyperkalemia. 1. 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 Hyperkalemia now resolved 3. Volume overload 4. Metabolic acidosis 5. Anemia 6. Hypertension 7. DM not on insulin 9. Cardiomyopathy No acute need for dialysis today, last dialysis was Thursday. For dialysis tomorrow with UF as tolerated. Still awaiting insurance authorization for outpatient dialysis placement. Dr. Ly to see for AVF placement with possible OR date later this week. Renal diet Thank you Luiz Galdamez DO
--- NOTE | 2019-10-10 17:31 | PN ---
Teaching Attending Note Name of Resident: Maral Bledsoe ATTENDING PHYSICIAN STATEMENT I saw and evaluated the patient. I reviewed the resident's note and discussed the case with the resident. I agree with the resident's findings and plan as documented. SUBJECTIVE: no fever or chills. noapin ,no SOB OBJECTIVE: NAD. CV: RRR, 3/6 SM at LLSb and [place] Lungs: CTAB Ext: No edema or erythema on upper or lower extremities Abd: soft, NT, Nd , NL BS ASSESSMENT AND PLAN: 69 y/o man with h/o hypertension, non-insulin dependent DM, cardiomyopathy, and possible CKD , who presneted with LE edema and was found to have severe diabetic nephropathy and hyperkalemia requiring HD. 1- ESRD 2/2 severe diabetic nephropathy 2- Hyperkalemia ,. resolved 3- Volume overload from renal disease 4- HTN 5- DM 6- Anemia 7- S/p diastolic CHF. now resolved. plan : - cont HD pending out pt HD center - needs hep B vaccine as out pt - cont norvasc , ccb , coreg , and HZN . Bp improved - cont SSI - SOPHIE with HD - cont Asa and statin - fistula as in patient Heparin SQ
--- NOTE | 2019-10-10 17:52 | PN ---
Progress Note (short form) - Note Progress Note: Vascular Surgery Pt needs permanent access. Pt has good basilic vein in left arm. Can do left avf on th. If vein not good, will place avg. Please medically clear. Ronnie Ly DO
--- NOTE | 2019-10-10 19:34 | PN ---
Physical Exam: SUBJECTIVE: Patient seen and examined today, in no acute distress, awaiting permanent catheter for HD OBJECTIVE: Vital Signs Period Temp Pulse Resp BP Sys/Lopes Pulse Ox Last 24 Hr 98.6 F-98.9 F 64-70 18-18 138-148/58-70 93-98 GENERAL: The patient is awake, alert, and fully oriented, in no acute distress. HEAD: Normal with no signs of trauma. EYES: PERRL, extraocular movements intact NECK: Trachea midline, full range of motion, supple. LUNGS: Breath sounds equal, clear to auscultation bilaterally, no wheezes, no crackles, no accessory muscle use. HEART: Regular rate and rhythm, S1, S2 without murmur, rub or gallop. ABDOMEN: Soft, nontender, nondistended, normoactive bowel sounds. EXTREMITIES: 2+ pulses, warm, well-perfused, no edema. NEUROLOGICAL: Normal speech, gait not observed. PSYCH: Normal mood, normal affect. SKIN: Warm, dry, normal turgor, no rashes or lesions noted Laboratory Results - last 24 hr CBC, BMP 10/09/19 07:10 10/10/19 08:08 Active Medications Amlodipine Besylate (Norvasc -) 10 mg PO DAILY [facility] Last Admin: 10/10/19 09:32 Dose: 10 mg Documented by: Aspirin (Ecotrin -) 81 mg PO DAILY [facility] Last Admin: 10/10/19 09:32 Dose: 81 mg Documented by: Atorvastatin Calcium (Lipitor -) 10 mg PO HS [facility] Last Admin: 10/09/19 22:20 Dose: 10 mg Documented by: Calcium Acetate (Phoslo -) 667 mg PO TIDCM [facility] Last Admin: 10/10/19 16:42 Dose: 667 mg Documented by: Carvedilol (Coreg -) 12.5 mg PO BID [facility] Last Admin: 10/10/19 09:32 Dose: 12.5 mg Documented by: Docusate Sodium (Colace -) 100 mg PO TID [facility] Last Admin: 10/10/19 14:26 Dose: 100 mg Documented by: Epoetin Efrem (Procrit -) 10,000 unit IVPUSH ONCE ONE Stop: 10/11/19 08:01 Heparin Sodium (Porcine) (Heparin -) 5,000 unit SQ TID [facility] Last Admin: 10/10/19 14:27 Dose: Not Given Documented by: Hydralazine HCl (Apresoline -) 50 mg PO BID [facility] Last Admin: 10/10/19 09:32 Dose: 50 mg Documented by: Sodium Chloride (Normal Saline -) 250 mls @ 3,000 mls/hr IV PRN PRN PRN Reason: Hypotension during Dialysis Stop: 10/11/19 17:16 Sodium Chloride (Normal Saline -) 250 mls @ 3,000 mls/hr IV PRN PRN PRN Reason: Hypotension during Dialysis Stop: 10/11/19 17:17 Insulin Aspart (Novolog Vial Sliding Scale -) 1 vial SQ [facility]; Protocol Last Admin: 10/10/19 16:42 Dose: 2 units Documented by: Polyethylene Glycol (Miralax (For Daily Use) -) 17 gm PO BID [facility] Last Admin: 10/10/19 11:56 Dose: Not Given Documented by: Sitagliptin Phosphate (Januvia -) 25 mg PO DAILY@0700 [facility] Last Admin: 10/10/19 06:18 Dose: 25 mg Documented by: ASSESSMENT/PLAN: 69 yo M citizen of , currently visiting his nephew and undocumented in the [place], with PMHx of hypertension, non-insulin dependent Diabetes Mellitus, Cardiomyopathy w/ preserved EF, and CKD, presented to the ED with SoB, syncope, LE edema and was noted to havesevere diabetic nephropathy and hyperkalemia requiring HD. Permacath placement was performed, and dialysis acheived. ESRD likely secondary to severe untreated diabetic nephropathy -Requires Dialysis -Currently has Permacath -Vascular Surgery Consulted: Aware of patient, will scheduled for permanent dialysis catheter -Can do left avf on . -If vein not good, will place avg. -Please medically clear. Chronic Anemia likely 2/2 CKD -Monitor CBC -Continue Epo Alpha Hx of Diastolic CHF -ECHO: EF: 60-65% -LA mildy dilated Hx of HTN -BP stable, monitor Vital Signs 2/2 increase in BP Meds -Continue Amlodine -Continue Coreg -Continue Hydralazine -Continue ASA DM -Previously on Metformin, will DC on discharge 2/2 CKD and risk of LA -Outpatient DM management -Januvia 25mg qdaily -Atorvastatin 2/2 DM and Cardiac Risk Factor Equivalent -ISS w/ BGM Hypocalcemia 2/2 ESRD -Continue Phoslo Social Work -Social Work Consulted -Monitor immigration status and DC planning PPx -DVT PPx: Heparin FEN Fluids: No standing fluids, limit excessive fluid intake Electrolytes: Monitor Ca++ Nutrition: Renal Diet Dispo: Continue med/surg management. FU social work w/ goal of outpatient hemodialysis Visit type - Emergency Visit Emergency Visit: No - New Patient This patient is new to me today: Yes Date on this admission: 10/10/19 - Critical Care Critical Care patient: No - Discharge Referral Referred to [facility] Med P.C.: No - Medication Review Med list reviewed for High Risk Meds patients 65 and older: Yes ATTENDING PHYSICIAN STATEMENT I saw and evaluated the patient. I reviewed the resident's note and discussed the case with the resident. I agree with the resident's findings and plan as documented. SUBJECTIVE: OBJECTIVE: ASSESSMENT AND PLAN:
[2019-10-10] MEDS: ATORVASTATIN CA 10 MG TABLET (FP) PO SCH (21:34)
[2019-10-11] MEDS: INSULIN SLIDING SCALE (NOVOLOG) 1 VIAL SQ SCH ×4 (06:15→22:45)
[2019-10-11] MEDS: DOCUSATE SODIUM 100 MG CAPSULE (FP) PO SCH ×3 (06:16→22:44)
[2019-10-11 08:17] LABS: BASO % 0.7 % (0-2.0); EOS % 4.1 % (0-4.5); HEMOGLOBIN 10.6 GM/dL (11.7-16.9); LYMPH % 19.1 % (8-40); MCH 29.2 pg (25.7-33.7); MCHC 32.2 g/dl (32.0-35.9); MEAN CELL VOLUME 90.6 fl (80-96); MEAN PLT VOLUME 8.4 fl (7.5-11.1); NEUT % 66.1 % (42.8-82.8); PLATELET COUNT 220 K/MM3 (134-434); RBC 3.64 M/mm3 (4.00-5.60); RDW 16.6 % (11.9-15.9); WHITE BLOOD COUNT 6.7 K/mm3 (4.0-10.0)
[2019-10-11 08:33] LABS: BLOOD UREA NITROGEN 66.5 mg/dL (7-18)
[2019-10-11] MEDS ORDERED: EPOETIN ALFA-EPBX 10,000 UNIT/ML VIAL IVPUSH ONE (09:00)
[2019-10-11] MEDS ORDERED: EPOETIN ALFA 10,000 UNIT/1 ML VIAL IVPUSH ONE (09:00)
[2019-10-11] MEDS ORDERED: SODIUM CHLORIDE 250 ML IV PRN ×2 (09:00)
[2019-10-11 09:17] LABS: CREATININE 7.8 mg/dL (0.55-1.3)
[2019-10-11 09:36] LABS: PHOSPHOROUS 5.7 mg/dL (2.5-4.9)
[2019-10-11] MEDS: CALCIUM ACETATE 667 MG CAPSULE (FP) PO SCH ×2 (12:09→19:35)
[2019-10-11] MEDS: amLODIPine BESYLATE 5 MG TABLET (FP) PO SCH (12:09)
[2019-10-11] MEDS: POLYETHYLENE GLYCOL 3350 119 GM BTL PO SCH ×2 (12:13→22:44)
[2019-10-11] MEDS: hydrALAZINE HCL 50 MG TABLET (FP) PO SCH ×2 (12:13→22:45)
[2019-10-11] MEDS: ASPIRIN COATED 81 MG TABLET.EC PO SCH (12:13)
[2019-10-11] MEDS: CARVEDILOL 12.5 MG TABLET (FP) PO SCH ×2 (12:13→22:45)
--- NOTE | 2019-10-11 13:00 | OP ---
DATE OF OPERATION: 09/30/2019 PREOPERATIVE DIAGNOSIS: End-stage renal disease. POSTOPERATIVE DIAGNOSIS: End-stage renal disease. PROCEDURE: Insertion of PermCath. SURGEON: Ronnie Vargas DO ANESTHESIA: Fractional. BLOOD LOSS: 10 mL INDICATIONS: Patient is a 69-year-old male that needs temporary dialysis catheter placement in the form of a PermCath. Patient was cleared by medicine. Patient was COVID-19 negative. Patient was consented for procedure understanding all risks, benefits and alternatives, and then taken to the operating room. DESCRIPTION OF PROCEDURE: Once in the operating room, he was laid on the operating table in the supine manner and the area of the right neck and chest was prepped and draped in a sterile surgical manner. We then injected 10 mL of lidocaine 1% over the right internal jugular vein under ultrasound guidance. We then took a micropuncture needle and punctured the right internal jugular vein under ultrasound guidance. Micropuncture wire was inserted. Micropuncture sheath was inserted. A 0.035 floppy guidewire was then inserted. We then injected 10 mL of lidocaine 1% above and below the clavicle. We then took a No. 11 blade and made a 1 cm incision at the puncture site. We then used a 15-blade, made a 1 cm incision below the clavicle. We then tunneled the PermCath up to the puncture site. We then placed our breakaway sheath over the guidewire into the vein under fluoroscopy. Inner cannula and guidewire were removed. Catheter was placed inside the sheath. Sheath was broken away as the catheter was placed inside the vein. Neck of the catheter was nice and smooth. Tip of the catheter was located outside the right atrium. We then timur back on each port of the catheter and there was good flow. Heparinized saline was injected into each port and 2000 units of IV heparin were injected into each port. We then used 4-0 Biosyn and 2 simple stitches were placed at the puncture site. We then used 3-0 nylon and the catheter was attached to the skin. BIOPATCH, Steri-Strips, 4 x 4, Tegaderms were placed. Patient tolerated the procedure with no complications. Patient transferred to PACU in stable condition where a chest x-ray will be ordered. RONNIE VARGAS DO [employer]/[id number]
--- NOTE | 2019-10-11 16:15 | PN ---
Progress Note, Physician Chief Complaint: Renal failure History of Present Illness: Seen and examined at the bedside awake and alert offers no acute complaints no sob, cp, fever, chills s/p dialysis earlier today with 1L UF - Current Medication List Current Medications: Active Medications Amlodipine Besylate (Norvasc -) 10 mg PO DAILY [facility] Last Admin: 10/11/19 12:09 Dose: 10 mg Documented by: Aspirin (Ecotrin -) 81 mg PO DAILY [facility] Last Admin: 10/11/19 12:13 Dose: 81 mg Documented by: Atorvastatin Calcium (Lipitor -) 10 mg PO HS [facility] Last Admin: 10/10/19 21:34 Dose: 10 mg Documented by: Calcium Acetate (Phoslo -) 667 mg PO TIDCM [facility] Last Admin: 10/11/19 12:09 Dose: 667 mg Documented by: Carvedilol (Coreg -) 12.5 mg PO BID [facility] Last Admin: 10/11/19 12:13 Dose: 12.5 mg Documented by: Docusate Sodium (Colace -) 100 mg PO TID [facility] Last Admin: 10/11/19 16:06 Dose: 100 mg Documented by: Hydralazine HCl (Apresoline -) 50 mg PO BID [facility] Last Admin: 10/11/19 12:13 Dose: 50 mg Documented by: Insulin Aspart (Novolog Vial Sliding Scale -) 1 vial SQ [facility]; Protocol Last Admin: 10/11/19 16:10 Dose: 2 units Documented by: Polyethylene Glycol (Miralax (For Daily Use) -) 17 gm PO BID [facility] Last Admin: 10/11/19 12:13 Dose: Not Given Documented by: Sitagliptin Phosphate (Januvia -) 25 mg PO DAILY@0700 [facility] Last Admin: 10/11/19 06:16 Dose: 25 mg Documented by: - Objective Vital Signs: Vital Signs Temperature 98.8 F 10/11/19 13:49 Pulse Rate 73 10/11/19 13:49 Respiratory Rate 18 10/11/19 13:49 Blood Pressure 133/43 L 10/11/19 13:49 O2 Sat by Pulse Oximetry (%) 96 10/11/19 05:51 Constitutional: Yes: No Distress, Calm HENT: Yes: Atraumatic Neck: Yes: Supple Cardiovascular: Yes: Regular Rate and Rhythm Respiratory: Yes: Regular Gastrointestinal: Yes: Soft Extremities: No: Cyanosis Edema: No Neurological: Yes: Alert Labs: CBC, BMP 10/11/19 07:33 10/11/19 07:33 INR, PTT INR 1.03 (0.83-1.09) 09/25/19 00:09 Assessment/Plan 69 year old male with history of hypertension, non-insulin dependent DM, cardiomyopathy, and possible CKD who came from the [facility] and pr esented to the ED with complaints of leg swelling and syncope and found to have renal failure and hyperkalemia. 1. 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 Hyperkalemia now resolved 3. Volume overload 4. Metabolic acidosis 5. Anemia 6. Hypertension 7. DM not on insulin 9. Cardiomyopathy tolerated dialysis this AM w/o complication continue Hd 3x weekly for AVF placement this as per Vascular Still awaiting insurance authorization for outpatient dialysis placement. Renal diet There is no Renal contraindication for planned vascular procedure. Thank you Luiz Galdamez DO
--- NOTE | 2019-10-11 18:38 | PN ---
Physical Exam: SUBJECTIVE: Patient seen and examined today, endorsed mild discomfort, however not in acute distress. HD scheduled for today OBJECTIVE: Vital Signs Period Temp Pulse Resp BP Sys/Lopes Pulse Ox Last 24 Hr 98.4 F-99.0 F 63-77 18-18 127-161/43-78 96-100 GENERAL: The patient is awake, alert, and fully oriented, in no acute distress. HEAD: Normal with no signs of trauma. EYES: PERRL, extraocular movements intact NECK: Trachea midline, full range of motion, supple. LUNGS: Breath sounds equal, clear to auscultation bilaterally, no wheezes, no crackles, no accessory muscle use. HEART: Regular rate and rhythm, S1, S2 without murmur, rub or gallop. ABDOMEN: Soft, nontender, nondistended, normoactive bowel sounds. EXTREMITIES: 2+ pulses, warm, well-perfused, no edema. NEUROLOGICAL: Normal speech, gait not observed. PSYCH: Normal mood, normal affect. SKIN: Warm, dry, normal turgor, no rashes or lesions noted Laboratory Results - last 24 hr CBC, BMP 10/11/19 07:33 10/11/19 07:33 Active Medications Generic Name Dose Route Start Last Admin Trade Name Freq PRN Reason Stop Dose Admin Amlodipine Besylate 10 mg 10/05/19 10:29 10/11/19 12:09 Norvasc - PO 10 mg DAILY [facility] Administration Aspirin 81 mg 10/05/19 19:00 10/11/19 12:13 Ecotrin - PO 81 mg DAILY [facility] Administration Atorvastatin Calcium 10 mg 10/05/19 22:00 10/10/19 21:34 Lipitor - PO 10 mg HS [facility] Administration Calcium Acetate 667 mg 10/03/19 17:30 10/11/19 12:09 Phoslo - PO 667 mg TIDCM [facility] Administration Carvedilol 12.5 mg 10/05/19 22:00 10/11/19 12:13 Coreg - PO 12.5 mg BID [facility] Administration Docusate Sodium 100 mg 10/05/19 22:00 10/11/19 16:06 Colace - PO 100 mg TID [facility] Administration Hydralazine HCl 50 mg 10/09/19 22:00 10/11/19 12:13 Apresoline - PO 50 mg BID [facility] Administration Insulin Aspart 1 vial 10/03/19 16:30 10/11/19 16:10 Novolog Vial Sliding Scale - SQ 2 units ACHS [facility] Administration Protocol Polyethylene Glycol 17 gm 10/07/19 10:00 10/11/19 12:13 Miralax (For Daily Use) - PO Not Given BID [facility] Sitagliptin Phosphate 25 mg 10/04/19 07:00 10/11/19 06:16 Januvia - PO 25 mg DAILY@0700 [facility] Administration ASSESSMENT/PLAN: 69 yo M citizen of , currently visiting his nephew and [place] the [place], with PMHx of hypertension, non-insulin dependent Diabetes Mellitus, Cardiomyopathy w/ preserved EF, and CKD, presented to the ED with SoB, syncope, LE edema and was noted to have severe diabetic nephropathy and hyperkalemia requiring HD. Permacath placement was performed, and dialysis acheived. ESRD likely secondary to severe untreated diabetic nephropathy -Requires Dialysis -Currently has Permacath -Vascular Surgery Consulted: Aware of patient, will scheduled for AV fistula -Per Vascular: Will place left av fistula on , once medically cleared. -If vein not adequate, will place av graft. Chronic Anemia likely 2/2 CKD -Monitor CBC -Continue Epo Alpha Hx of Diastolic CHF -ECHO: EF: 60-65% -LA mildy dilated Hx of HTN -BP stable, monitor Vital Signs 2/2 increase in BP Meds -Continue Amlodine -Continue Coreg -Continue Hydralazine -Continue ASA DM -Previously on Metformin, will DC on discharge 2/2 CKD and risk of LA -Outpatient DM management -Januvia 25mg qdaily -Atorvastatin 2/2 DM and Cardiac Risk Factor Equivalent -ISS w/ BGM Hypocalcemia 2/2 ESRD -Continue Phoslo Social Work -Social Work Consulted -Monitor immigration status and DC planning FEN Fluids: No standing fluids, limit excessive fluid intake Electrolytes: Monitor Ca++ Nutrition: Renal Diet Dispo: Continue med/surg management. FU social work w/ goal of outpatient hemodialysis Visit type - Emergency Visit Emergency Visit: No - New Patient This patient is new to me today: No - Critical Care Critical Care patient: No - Discharge Referral Referred to [facility] Med P.C.: No - Medication Review Med list reviewed for High Risk Meds patients 65 and older: Yes ATTENDING PHYSICIAN STATEMENT I saw and evaluated the patient. I reviewed the resident's note and discussed the case with the resident. I agree with the resident's findings and plan as documented. SUBJECTIVE: OBJECTIVE: ASSESSMENT AND PLAN:
--- NOTE | 2019-10-11 19:06 | PN ---
Teaching Attending Note Name of Resident: Yan Celis ATTENDING PHYSICIAN STATEMENT I saw and evaluated the patient. I reviewed the resident's note and discussed the case with the resident. I agree with the resident's findings and plan as documented. SUBJECTIVE: Patient has no new complains, going for AVF OBJECTIVE: Vital Signs Temperature 98.8 F 10/11/19 13:49 Pulse Rate 73 10/11/19 13:49 Respiratory Rate 18 10/11/19 13:49 Blood Pressure 133/43 L 10/11/19 13:49 O2 Sat by Pulse Oximetry (%) 96 10/11/19 05:51 PE: per resident's note CBCD WBC 6.7 K/mm3 (4.0-10.0) 10/11/19 07:33 RBC 3.64 M/mm3 (4.00-5.60) L 10/11/19 07:33 Hgb 10.6 GM/dL (11.7-16.9) L 10/11/19 07:33 Hct 33.0 % (35.4-49) L 10/11/19 07:33 MCV 90.6 fl (80-96) 10/11/19 07:33 MCHC 32.2 g/dl (32.0-35.9) 10/11/19 07:33 RDW 16.6 % (11.9-15.9) H 10/11/19 07:33 Plt Count 220 K/MM3 (134-434) D 10/11/19 07:33 MPV 8.4 fl (7.5-11.1) 10/11/19 07:33 CMP Sodium 139 mmol/L (136-145) 10/11/19 07:33 Potassium 4.0 mmol/L (3.5-5.1) 10/11/19 07:33 Chloride 102 mmol/L (98-107) 10/11/19 07:33 Carbon Dioxide 25 mmol/L (21-32) 10/11/19 07:33 Anion Gap 12 MMOL/L (8-16) 10/11/19 07:33 BUN 66.5 mg/dL (7-18) H 10/11/19 07:33 Creatinine 7.8 mg/dL (0.55-1.3) H* 10/11/19 07:33 Random Glucose 158 mg/dL (74-106) H 10/11/19 07:33 Calcium 9.0 mg/dL (8.5-10.1) 10/11/19 07:33 Total Bilirubin 0.5 mg/dL (0.2-1) 10/09/19 07:10 AST 36 U/L (15-37) 10/09/19 07:10 ALT 65 U/L (13-61) H 10/09/19 07:10 Alkaline Phosphatase 68 U/L (45-117) 10/09/19 07:10 Total Protein 6.3 g/dl (6.4-8.2) L 10/09/19 07:10 Albumin 3.0 g/dl (3.4-5.0) L 10/09/19 07:10 CARDIAC ENZYMES Creatine Kinase 418 U/L (26-308) H 09/29/19 06:05 Troponin I 0.07 ng/ml (0.00-0.05) H 09/29/19 06:05 Current Medications Generic Name Dose Route Start Last Admin Trade Name Los PRN Reason Stop Dose Admin Amlodipine Besylate 10 mg 10/05/19 10:29 10/11/19 12:09 Norvasc - PO 10 mg DAILY [facility] Administration Aspirin 81 mg 10/05/19 19:00 10/11/19 12:13 Ecotrin - PO 81 mg DAILY [facility] Administration Atorvastatin Calcium 10 mg 10/05/19 22:00 10/10/19 21:34 Lipitor - PO 10 mg HS [facility] Administration Calcium Acetate 667 mg 10/03/19 17:30 10/11/19 12:09 Phoslo - PO 667 mg TIDCM [facility] Administration Carvedilol 12.5 mg 10/05/19 22:00 10/11/19 12:13 Coreg - PO 12.5 mg BID [facility] Administration Docusate Sodium 100 mg 10/05/19 22:00 10/11/19 16:06 Colace - PO 100 mg TID [facility] Administration Hydralazine HCl 50 mg 10/09/19 22:00 10/11/19 12:13 Apresoline - PO 50 mg BID [facility] Administration Insulin Aspart 1 vial 10/03/19 16:30 10/11/19 16:10 Novolog Vial Sliding Scale - SQ 2 units ACHS [facility] Administration Protocol Polyethylene Glycol 17 gm 10/07/19 10:00 10/11/19 12:13 Miralax (For Daily Use) - PO Not Given BID [facility] Sitagliptin Phosphate 25 mg 10/04/19 07:00 10/11/19 06:16 Januvia - PO 25 mg DAILY@0700 [facility] Administration Home Medications Medication Instructions Recorded Amlodipine Besylate [Norvasc -] 10 mg PO DAILY 09/27/19 Irbesartan [Avapro] 300 mg PO DAILY 09/27/19 metFORMIN HCL [Metformin HCl] 850 mg PO DAILY 09/27/19 ASSESSMENT AND PLAN: This patient is a 69yom with PMhx of HTN, T2DM , cardiomyopathy, and possible CKD , who presented with LE edema and was found to have severe diabetic nephropathy and hyperkalemia requiring HD. 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 resolved.continue asa and statin ,coreg # hep B vaccine as out pt DVT Px: Heparin SQ
[2019-10-11] MEDS ORDERED: INSULIN (NOVOLOG) ASPART 100 UNITS/ML 10ML VIAL ONE (22:12)
[2019-10-11] MEDS: ATORVASTATIN CA 10 MG TABLET (FP) PO SCH (22:45)
--- NOTE | 2019-10-12 03:10 | PN ---
Progress Note, Physician Chief Complaint: Pt A&Ox3; no chest pain or dyspnea. History of Present Illness: Mr. Vuong is a 69 year old male (. [facility]) with a significant past medical history of HTN, DM, CHF, and renal dysfunction, who presents to the ED with 4 months of bilateral LE edema. As per patient, he presented to the ED from the [facility] secondary to receiving inadequate care. Patient also endorses one month of intermittent shortness of breath, occasional mild sharp central chest pain on exertion lasting a few seconds, bilateral kidney pain and 4 episodes of syncope last week, with head injury. Denies fever, chills, headache, nausea, vomiting, or urinary changes. - Current Medication List Current Medications: Active Medications Amlodipine Besylate (Norvasc -) 10 mg PO DAILY [facility] Last Admin: 10/11/19 12:09 Dose: 10 mg Documented by: Aspirin (Ecotrin -) 81 mg PO DAILY [facility] Last Admin: 10/11/19 12:13 Dose: 81 mg Documented by: Atorvastatin Calcium (Lipitor -) 10 mg PO HS [facility] Last Admin: 10/11/19 22:45 Dose: 10 mg Documented by: Calcium Acetate (Phoslo -) 667 mg PO TIDCM [facility] Last Admin: 10/11/19 19:35 Dose: 667 mg Documented by: Carvedilol (Coreg -) 12.5 mg PO BID [facility] Last Admin: 10/11/19 22:45 Dose: 12.5 mg Documented by: Docusate Sodium (Colace -) 100 mg PO TID [facility] Last Admin: 10/11/19 22:44 Dose: 100 mg Documented by: Hydralazine HCl (Apresoline -) 50 mg PO BID [facility] Last Admin: 10/11/19 22:45 Dose: 50 mg Documented by: Insulin Aspart (Novolog Vial Sliding Scale -) 1 vial SQ [facility]; Protocol Last Admin: 10/11/19 22:45 Dose: 2 units Documented by: Polyethylene Glycol (Miralax (For Daily Use) -) 17 gm PO BID [facility] Last Admin: 10/11/19 22:44 Dose: Not Given Documented by: Sitagliptin Phosphate (Januvia -) 25 mg PO DAILY@0700 [facility] Last Admin: 10/11/19 06:16 Dose: 25 mg Documented by: - Objective Vital Signs: Vital Signs Temperature 99.0 F 10/11/19 18:00 Pulse Rate 68 10/11/19 18:00 Respiratory Rate 18 10/11/19 18:00 Blood Pressure 126/59 L 10/11/19 18:00 O2 Sat by Pulse Oximetry (%) 97 10/11/19 18:00 Constitutional: Yes: No Distress Eyes: Yes: WNL HENT: Yes: WNL Cardiovascular: Yes: S1, S2, S4 Respiratory: Yes: Regular Gastrointestinal: Yes: Soft ...Rectal Exam: Yes: Deferred Genitourinary: No: Anuria Extremities: Yes: Cool Edema: No Peripheral Pulses WNL: Yes Psychiatric: Yes: Alert, Oriented, Other (anxiety) Labs: CBC, BMP 10/11/19 07:33 10/11/19 07:33 INR, PTT INR 1.03 (0.83-1.09) 09/25/19 00:09 Abnormal Lab Results 10/11/19 10/11/19 07:33 07:33 RBC 3.64 L Hgb 10.6 L Hct 33.0 L RDW 16.6 H BUN 66.5 H Creatinine 7.8 H* Random Glucose 158 H Phosphorus 5.7 H - ....Imaging Chest X-ray: Image Reviewed EKG: Image Reviewed Other: Report Reviewed (stress MIBI) Assessment/Plan ESRD; on hemodialysis Bilateral LE edema x several months Intermittent shortness of breath Syncope x 4 recently anemia severe hyperkalemia rhabdomyolysis HTN diastolic CHF elevated TNI; stress MIBI now shows small area of mildly intense inferior ischemia EKG: NSR; ? old septal infarct ECHO: normal LVEF; abnormal diastolic compliance; mild-moderate LVH; small pericardial effusion Rec: From cardiac standpoint, there are no absolute contraindications for Mr. Vuong to undergo AV fistula or graft. s/p renal biopsy; await results. Increased amlodipine to 10 mg daily; increased hydralazine to 25 mg bid; c ontinue Coreg;f/u BP and HR serially. Corrected hyperkalemia: off Lokelma Cholesterol: LDL 68; HDL 45; continue atorvastatin; follow heart-healthy diet; increase exercise. CT head: no acute intracranial pathology
[2019-10-12] MEDS ORDERED: INSULIN (NOVOLOG) ASPART 100 UNITS/ML 10ML VIAL ONE ×2 (07:06→12:30)
[2019-10-12] MEDS: INSULIN SLIDING SCALE (NOVOLOG) 1 VIAL SQ SCH ×4 (07:12→21:28)
[2019-10-12] MEDS: CALCIUM ACETATE 667 MG CAPSULE (FP) PO SCH ×3 (07:13→17:22)
[2019-10-12] MEDS: DOCUSATE SODIUM 100 MG CAPSULE (FP) PO SCH ×3 (07:13→21:26)
--- NOTE | 2019-10-12 07:54 | SPA.PREOP ---
- PRE-OP NOTE Dx: ESRD Planned Procedure: AV fistula creation Surgeon: Ronnie Ly, DO Last Vital Signs Temp Pulse Resp BP Pulse Ox 99.0 F 68 18 128/59 L 99 10/11/19 22:00 10/11/19 22:00 10/11/19 22:00 10/11/19 22:00 10/11/19 22:00 Lab Results WBC 6.7 K/mm3 (4.0-10.0) 10/11/19 07:33 RBC 3.64 M/mm3 (4.00-5.60) L 10/11/19 07:33 Hgb 10.6 GM/dL (11.7-16.9) L 10/11/19 07:33 Hct 33.0 % (35.4-49) L 10/11/19 07:33 MCV 90.6 fl (80-96) 10/11/19 07:33 MCHC 32.2 g/dl (32.0-35.9) 10/11/19 07:33 RDW 16.6 % (11.9-15.9) H 10/11/19 07:33 Plt Count 220 K/MM3 (134-434) D 10/11/19 07:33 INR 1.03 (0.83-1.09) 09/25/19 00:09 Sodium 139 mmol/L (136-145) 10/11/19 07:33 Potassium 4.0 mmol/L (3.5-5.1) 10/11/19 07:33 Chloride 102 mmol/L (98-107) 10/11/19 07:33 Carbon Dioxide 25 mmol/L (21-32) 10/11/19 07:33 Anion Gap 12 MMOL/L (8-16) 10/11/19 07:33 BUN 66.5 mg/dL (7-18) H 10/11/19 07:33 Creatinine 7.8 mg/dL (0.55-1.3) H* 10/11/19 07:33 Random Glucose 158 mg/dL (74-106) H 10/11/19 07:33 Calcium 9.0 mg/dL (8.5-10.1) 10/11/19 07:33 - ASSESSMENT/PLAN 1. Make NPO after midnight except po meds 2. GI/DVT PPX 3. Medical optimization / clearance 4. Consent to be obtained by surgeon after risks, benefits and alternatives discussed with patient and or Health Care Proxy.
[2019-10-12 10:01] LABS: CALCIUM 8.8 mg/dL (8.5-10.1); CREATININE 5.6 mg/dL (0.55-1.3); POTASSIUM 3.8 mmol/L (3.5-5.1)
[2019-10-12] MEDS: hydrALAZINE HCL 50 MG TABLET (FP) PO SCH ×2 (10:03→21:26)
[2019-10-12] MEDS: CARVEDILOL 12.5 MG TABLET (FP) PO SCH ×2 (10:04→21:26)
[2019-10-12] MEDS: amLODIPine BESYLATE 5 MG TABLET (FP) PO SCH (10:04)
[2019-10-12] MEDS: ASPIRIN COATED 81 MG TABLET.EC PO SCH (10:04)
[2019-10-12] MEDS: POLYETHYLENE GLYCOL 3350 119 GM BTL PO SCH ×2 (10:05→21:27)
[2019-10-12 10:08] LABS: BLOOD UREA NITROGEN 37.1 mg/dL (7-18)
--- NOTE | 2019-10-12 10:25 | PN ---
Progress Note, Physician History of Present Illness: Mr. Vuong is a 69 year old male (. [facility]) with a significant past medical history of HTN, DM, CHF, and renal dysfunction, who presents to the ED with 4 months of bilateral LE edema. As per patient, he presented to the ED from the [facility] secondary to receiving inadequate care. Patient also endorses one month of intermittent shortness of breath, chest pain on exertion, bilateral kidney pain and 4 episodes of syncope last week, with head injury. Denies fever, chills, headache, nausea, vomiting, or urinary changes. - Current Medication List Current Medications: Active Medications Amlodipine Besylate (Norvasc -) 10 mg PO DAILY [facility] Last Admin: 10/12/19 10:04 Dose: 10 mg Documented by: Aspirin (Ecotrin -) 81 mg PO DAILY [facility] Last Admin: 10/12/19 10:04 Dose: 81 mg Documented by: Atorvastatin Calcium (Lipitor -) 10 mg PO HS [facility] Last Admin: 10/11/19 22:45 Dose: 10 mg Documented by: Calcium Acetate (Phoslo -) 667 mg PO TIDCM [facility] Last Admin: 10/12/19 07:13 Dose: 667 mg Documented by: Carvedilol (Coreg -) 12.5 mg PO BID [facility] Last Admin: 10/12/19 10:04 Dose: 12.5 mg Documented by: Docusate Sodium (Colace -) 100 mg PO TID [facility] Last Admin: 10/12/19 07:13 Dose: 100 mg Documented by: Hydralazine HCl (Apresoline -) 50 mg PO BID [facility] Last Admin: 10/12/19 10:03 Dose: 50 mg Documented by: Insulin Aspart (Novolog Vial Sliding Scale -) 1 vial SQ [facility]; Protocol Last Admin: 10/12/19 07:12 Dose: Not Given Documented by: Polyethylene Glycol (Miralax (For Daily Use) -) 17 gm PO BID [facility] Last Admin: 10/12/19 10:05 Dose: 17 gm Documented by: Sitagliptin Phosphate (Januvia -) 25 mg PO DAILY@0700 [facility] Last Admin: 10/12/19 07:13 Dose: 25 mg Documented by: - Objective Vital Signs: Vital Signs Temperature 99.4 F 10/12/19 06:00 Pulse Rate 74 10/12/19 06:00 Respiratory Rate 18 08/26/20 06:00 Blood Pressure 141/71 10/12/19 06:00 O2 Sat by Pulse Oximetry (%) 97 10/12/19 06:00 Eyes: Yes: WNL, Conjunctiva Clear, EOM Intact HENT: Yes: WNL, Atraumatic, Normocephalic Neck: Yes: WNL, Supple, Trachea Midline Cardiovascular: Yes: WNL, Regular Rate and Rhythm Respiratory: Yes: WNL, Regular, CTA Bilaterally Gastrointestinal: Yes: WNL, Normal Bowel Sounds Genitourinary: Yes: WNL Musculoskeletal: Yes: WNL Extremities: Yes: WNL Edema: No Integumentary: Yes: WNL Neurological: Yes: WNL, Alert, Oriented ...Motor Strength: WNL Psychiatric: Yes: WNL Labs: CBC, BMP 10/11/19 07:33 10/12/19 08:37 INR, PTT INR 1.03 (0.83-1.09) 09/25/19 00:09 Problem List - Problems (1) Diabetes Code(s): E11.9 - TYPE 2 DIABETES MELLITUS WITHOUT COMPLICATIONS (2) Hyperkalemia Code(s): E87.5 - HYPERKALEMIA (3) Hypertension Code(s): I10 - ESSENTIAL (PRIMARY) HYPERTENSION (4) Kidney failure Code(s): N19 - UNSPECIFIED KIDNEY FAILURE Qualifiers: Renal failure chronicity: acute on chronic Assessment/Plan ESRD; on hemodialysis Bilateral LE edema x several months Intermittent shortness of breath Syncope x 4 recently anemia severe hyperkalemia rhabdomyolysis HTN diastolic CHF elevated TNI; stress MIBI now shows small area of mildly intense inferior ischemia EKG: NSR; ? old septal infarct ECHO: normal LVEF; abnormal diastolic compliance; mild-moderate LVH; small pericardial effusion Rec: From cardiac standpoint, there are no absolute contraindications for Mr. Vuong to undergo AV fistula or graft. s/p renal biopsy; await results. Increased amlodipine to 10 mg daily; increased hydralazine to 25 mg bid; continue Coreg;f/u BP and HR serially. Corrected hyperkalemia: off Lokelma Cholesterol: LDL 68; HDL 45; continue atorvastatin; follow heart-healthy diet; increase exercise. CT head: no acute intracranial pathology
--- NOTE | 2019-10-12 15:45 | PN ---
Physical Exam: SUBJECTIVE: Patient seen and examined, states he is feeling much better after yesterday's dialysis OBJECTIVE: Vital Signs Period Temp Pulse Resp BP Sys/Lopes Pulse Ox Last 24 Hr 98.6 F-99.4 F 68-80 18-18 126-141/59-71 97-99 GENERAL: The patient is awake, alert, and fully oriented, in no acute distress. HEAD: Normal with no signs of trauma. EYES: PERRL, extraocular movements intact NECK: Trachea midline, full range of motion, supple. LUNGS: Breath sounds equal, clear to auscultation bilaterally, no wheezes, no crackles, no accessory muscle use. HEART: Regular rate and rhythm, S1, S2 without murmur, rub or gallop. ABDOMEN: Soft, nontender, nondistended, normoactive bowel sounds. EXTREMITIES: 2+ pulses, warm, well-perfused, no edema. NEUROLOGICAL: Normal speech, gait not observed. PSYCH: Normal mood, normal affect. SKIN: Warm, dry, normal turgor, no rashes or lesions noted Laboratory Results - last 24 hr CBC, BMP 10/11/19 07:33 10/12/19 08:37 Active Medications Generic Name Dose Route Start Last Admin Trade Name Freq PRN Reason Stop Dose Admin Amlodipine Besylate 10 mg 10/05/19 10:29 10/12/19 10:04 Norvasc - PO 10 mg DAILY [facility] Administration Aspirin 81 mg 10/05/19 19:00 10/12/19 10:04 Ecotrin - PO 81 mg DAILY MAT Administration Atorvastatin Calcium 10 mg 10/05/19 22:00 10/11/19 22:45 Lipitor - PO 10 mg HS MAT Administration Calcium Acetate 667 mg 10/03/19 17:30 10/12/19 12:27 Phoslo - PO 667 mg TIDCM MAT Administration Carvedilol 12.5 mg 10/05/19 22:00 10/12/19 10:04 Coreg - PO 12.5 mg BID MAT Administration Docusate Sodium 100 mg 10/05/19 22:00 10/12/19 13:41 Colace - PO 100 mg TID MAT Administration Hydralazine HCl 50 mg 10/09/19 22:00 10/12/19 10:03 Apresoline - PO 50 mg BID MAT Administration Insulin Aspart 1 vial 10/03/19 16:30 10/12/19 12:28 Novolog Vial Sliding Scale - SQ 2 units ACHS MAT Administration Protocol Polyethylene Glycol 17 gm 10/07/19 10:00 10/12/19 10:05 Miralax (For Daily Use) - PO 17 gm BID [facility] Administration Sitagliptin Phosphate 25 mg 10/04/19 07:00 10/12/19 07:13 Januvia - PO 25 mg DAILY@0700 MAT Administration ASSESSMENT/PLAN: 69 yo M citizen of , currently visiting his nephew and undocumented in the [place], with PMHx of hypertension, non-insulin dependent Diabetes Mellitus, Cardiomyopathy w/ preserved EF, and CKD, presented to the ED with SoB, syncope, LE edema and was noted to have severe diabetic nephropathy and hyperkalemia requiring HD. Permacath placement was performed, and dialysis acheived. ESRD likely secondary to severe untreated diabetic nephropathy -Requires Dialysis -Currently has Permacath -Vascular Surgery Consulted: Left Arm AV Fistula planned for 10/12 -Per Cardiology: Cleared for AVF or AVG Chronic Anemia likely 2/2 CKD -Monitor CBC -Continue Epo Alpha Hx of Diastolic CHF -ECHO: EF: 60-65% -LA mildy dilated Hx of HTN -BP stable, monitor Vital Signs 2/2 increase in BP Meds -Continue Amlodine -Continue Coreg -Continue Hydralazine -Continue ASA DM -Previously on Metformin, will DC on discharge 2/2 CKD and risk of LA -Outpatient DM management -Januvia 25mg qdaily -Atorvastatin 2/2 DM and Cardiac Risk Factor Equivalent -ISS w/ BGM Hypocalcemia 2/2 ESRD -Continue Phoslo Social Work -Social Work Consulted -Monitor immigration status and DC planning FEN Fluids: No standing fluids, limit excessive fluid intake Electrolytes: Monitor Ca++ Nutrition: Renal Diet Dispo: Continue med/surg management. FU social work w/ goal of outpatient hemodialysis Visit type - Emergency Visit Emergency Visit: No - New Patient This patient is new to me today: No - Critical Care Critical Care patient: No - Discharge Referral Referred to [facility] No - Medication Review Med list reviewed for High Risk Meds patients 65 and older: Yes ATTENDING PHYSICIAN STATEMENT I saw and evaluated the patient. I reviewed the resident's note and discussed the case with the resident. I agree with the resident's findings and plan as documented. SUBJECTIVE: OBJECTIVE: ASSESSMENT AND PLAN:
[2019-10-12] MEDS: HEPARIN NA (PORCINE) 5,000 UNITS/ML 1ML VIAL SQ SCH ×2 (17:22→21:26)
--- NOTE | 2019-10-12 18:45 | PN ---
Teaching Attending Note Name of Resident: Yan Celis ATTENDING PHYSICIAN STATEMENT I saw and evaluated the patient. I reviewed the resident's note and discussed the case with the resident. I agree with the resident's findings and plan as documented. SUBJECTIVE: Patient has no new complains OBJECTIVE: Vital Signs Temperature 99 F 10/12/19 16:35 Pulse Rate 77 10/12/19 16:35 Respiratory Rate 20 10/12/19 16:35 Blood Pressure 138/64 10/12/19 16:35 O2 Sat by Pulse Oximetry (%) 99 10/12/19 16:35 PE; per resident's note CBCD WBC 6.7 K/mm3 (4.0-10.0) 10/11/19 07:33 RBC 3.64 M/mm3 (4.00-5.60) L 10/11/19 07:33 Hgb 10.6 GM/dL (11.7-16.9) L 10/11/19 07:33 Hct 33.0 % (35.4-49) L 10/11/19 07:33 MCV 90.6 fl (80-96) 10/11/19 07:33 MCHC 32.2 g/dl (32.0-35.9) 10/11/19 07:33 RDW 16.6 % (11.9-15.9) H 10/11/19 07:33 Plt Count 220 K/MM3 (134-434) D 10/11/19 07:33 MPV 8.4 fl (7.5-11.1) 10/11/19 07:33 CMP Sodium 141 mmol/L (136-145) 10/12/19 08:37 Potassium 3.8 mmol/L (3.5-5.1) 10/12/19 08:37 Chloride 100 mmol/L (98-107) 10/12/19 08:37 Carbon Dioxide 31 mmol/L (21-32) 10/12/19 08:37 Anion Gap 9 MMOL/L (8-16) 10/12/19 08:37 BUN 37.1 mg/dL (7-18) H 10/12/19 08:37 Creatinine 5.6 mg/dL (0.55-1.3) H 10/12/19 08:37 Random Glucose 164 mg/dL (74-106) H 10/12/19 08:37 Calcium 8.8 mg/dL (8.5-10.1) 10/12/19 08:37 Total Bilirubin 0.5 mg/dL (0.2-1) 10/09/19 07:10 AST 36 U/L (15-37) 10/09/19 07:10 ALT 65 U/L (13-61) H 10/09/19 07:10 Alkaline Phosphatase 68 U/L (45-117) 10/09/19 07:10 Total Protein 6.3 g/dl (6.4-8.2) L 10/09/19 07:10 Albumin 3.0 g/dl (3.4-5.0) L 10/09/19 07:10 CARDIAC ENZYMES Creatine Kinase 418 U/L (26-308) H 09/29/19 06:05 Troponin I 0.07 ng/ml (0.00-0.05) H 09/29/19 06:05 Current Medications Generic Name Dose Route Start Last Admin Trade Name Freq PRN Reason Stop Dose Admin Amlodipine Besylate 10 mg 10/05/19 10:29 10/12/19 10:04 Norvasc - PO 10 mg DAILY [facility] Administration Aspirin 81 mg 10/05/19 19:00 10/12/19 10:04 Ecotrin - PO 81 mg DAILY [facility] Administration Atorvastatin Calcium 10 mg 10/05/19 22:00 10/11/19 22:45 Lipitor - PO 10 mg HS MAT Administration Calcium Acetate 667 mg 10/03/19 17:30 10/12/19 17:22 Phoslo - PO 667 mg TIDCM MAT Administration Carvedilol 12.5 mg 10/05/19 22:00 10/12/19 10:04 Coreg - PO 12.5 mg BID MAT Administration Docusate Sodium 100 mg 10/05/19 22:00 10/12/19 13:41 Colace - PO 100 mg TID MAT Administration Heparin Sodium (Porcine) 5,000 unit 10/12/19 16:00 10/12/19 17:22 Heparin - SQ 5,000 unit TID MAT Administration Hydralazine HCl 50 mg 10/09/19 22:00 10/12/19 10:03 Apresoline - PO 50 mg BID MAT Administration Insulin Aspart 1 vial 10/03/19 16:30 10/12/19 17:22 Novolog Vial Sliding Scale - SQ Not Given ACHS [facility] Protocol Polyethylene Glycol 17 gm 10/07/19 10:00 10/12/19 10:05 Miralax (For Daily Use) - PO 17 gm BID [facility] Administration Sitagliptin Phosphate 25 mg 10/04/19 07:00 10/12/19 07:13 Januvia - PO 25 mg DAILY@0700 MAT Administration Home Medications Medication Instructions Recorded Amlodipine Besylate [Norvasc -] 10 mg PO DAILY 09/27/19 Irbesartan [Avapro] 300 mg PO DAILY 09/27/19 metFORMIN HCL [Metformin HCl] 850 mg PO DAILY 09/27/19 ASSESSMENT AND PLAN: This patient is a 69yom with PMhx of HTN, T2DM , cardiomyopathy, and possible CKD , who presented with LE edema and was found to have severe diabetic nephropathy and hyperkalemia requiring HD. 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 resolved.continue asa and statin ,coreg # hep B vaccine as out pt DVT Px: Heparin SQ going for fistula in am
--- NOTE | 2019-10-12 20:05 | PN ---
Progress Note, Physician Chief Complaint: Renal failure History of Present Illness: Seen and examined at the bedside awake and alert offers no acute complaints no sob, cp, fever, chills s/p dialysis yesterday family at the bedside planned to have AVF/AVG placed tomorrow. - Current Medication List Current Medications: Active Medications Amlodipine Besylate (Norvasc -) 10 mg PO DAILY [facility] Last Admin: 10/12/19 10:04 Dose: 10 mg Documented by: Aspirin (Ecotrin -) 81 mg PO DAILY [facility] Last Admin: 10/12/19 10:04 Dose: 81 mg Documented by: Atorvastatin Calcium (Lipitor -) 10 mg PO HS [facility] Last Admin: 10/11/19 22:45 Dose: 10 mg Documented by: Calcium Acetate (Phoslo -) 667 mg PO TIDCM [facility] Last Admin: 10/12/19 17:22 Dose: 667 mg Documented by: Carvedilol (Coreg -) 12.5 mg PO BID [facility] Last Admin: 10/12/19 10:04 Dose: 12.5 mg Documented by: Docusate Sodium (Colace -) 100 mg PO TID [facility] Last Admin: 10/12/19 13:41 Dose: 100 mg Documented by: Heparin Sodium (Porcine) (Heparin -) 5,000 unit SQ TID [facility] Last Admin: 10/12/19 17:22 Dose: 5,000 unit Documented by: Hydralazine HCl (Apresoline -) 50 mg PO BID [facility] Last Admin: 10/12/19 10:03 Dose: 50 mg Documented by: Insulin Aspart (Novolog Vial Sliding Scale -) 1 vial SQ [facility]; Protocol Last Admin: 10/12/19 17:22 Dose: Not Given Documented by: Polyethylene Glycol (Miralax (For Daily Use) -) 17 gm PO BID [facility] Last Admin: 10/12/19 10:05 Dose: 17 gm Documented by: Sitagliptin Phosphate (Januvia -) 25 mg PO DAILY@0700 [facility] Last Admin: 10/12/19 07:13 Dose: 25 mg Documented by: - Objective Vital Signs: Vital Signs Temperature 99 F 10/12/19 16:35 Pulse Rate 77 10/12/19 16:35 Respiratory Rate 20 10/12/19 16:35 Blood Pressure 138/64 10/12/19 16:35 O2 Sat by Pulse Oximetry (%) 99 10/12/19 16:35 Constitutional: Yes: No Distress, Calm HENT: Yes: Atraumatic Neck: Yes: Supple Cardiovascular: Yes: Regular Rate and Rhythm Respiratory: Yes: CTA Bilaterally Gastrointestinal: Yes: Soft Extremities: No: Cyanosis Edema: No Neurological: Yes: Alert Labs: CBC, BMP 10/11/19 07:33 10/12/19 08:37 INR, PTT INR 1.03 (0.83-1.09) 09/25/19 00:09 Assessment/Plan 69 year old male with history of hypertension, non-insulin dependent DM, cardiomyopathy, and possible CKD who came from the [facility] [place] and presented to the ED with complaints of leg swelling and syncope and found to have renal failure and hyperkalemia. 1. ESRD requiring dialysis secondary to severe diabetic nephropathy (biopsy proven) 2. Hyperkalemia now resolved 3. Volume overload 4. Metabolic acidosis 5. Anemia 6. Hypertension 7. DM not on insulin 9. Cardiomyopathy There is no acute indication for dialysis today, check BMP in AM. If labs are acceptable will defer dialysis to Thursday. continue Hd 3x weekly for ESRD from diabetic nephropathy for AVF placement tomorrow as per Vascular Still awaiting insurance authorization for outpatient dialysis placement. Renal diet There is no Renal contraindication for planned vascular procedure. Thank you Luiz Galdamez DO
[2019-10-12] MEDS: ATORVASTATIN CA 10 MG TABLET (FP) PO SCH (21:26)
[2019-10-13] MEDS: DOCUSATE SODIUM 100 MG CAPSULE (FP) PO SCH ×3 (06:07→21:27)
[2019-10-13] MEDS: HEPARIN NA (PORCINE) 5,000 UNITS/ML 1ML VIAL SQ SCH ×3 (06:08→21:27)
[2019-10-13] MEDS: INSULIN SLIDING SCALE (NOVOLOG) 1 VIAL SQ SCH ×4 (06:08→21:30)
[2019-10-13] MEDS: CALCIUM ACETATE 667 MG CAPSULE (FP) PO SCH ×3 (08:48→17:28)
[2019-10-13 08:59] LABS: BASO % 0.6 % (0-2.0); EOS % 4.5 % (0-4.5); HEMATOCRIT 29.2 % (35.4-49); HEMOGLOBIN 9.5 GM/dL (11.7-16.9); LYMPH % 20.9 % (8-40); MCH 29.7 pg (25.7-33.7); MCHC 32.4 g/dl (32.0-35.9); MEAN CELL VOLUME 91.8 fl (80-96); MEAN PLT VOLUME 8.9 fl (7.5-11.1); MONO % 12.4 % (3.8-10.2); NEUT % 61.6 % (42.8-82.8); PLATELET COUNT 166 K/MM3 (134-434); RBC 3.19 M/mm3 (4.00-5.60); RDW 16.7 % (11.9-15.9); WHITE BLOOD COUNT 5.5 K/mm3 (4.0-10.0)
[2019-10-13 09:21] LABS: BLOOD UREA NITROGEN 57.4 mg/dL (7-18); CALCIUM 8.5 mg/dL (8.5-10.1); CREATININE 6.9 mg/dL (0.55-1.3)
[2019-10-13] MEDS: POLYETHYLENE GLYCOL 3350 119 GM BTL PO SCH ×2 (09:49→21:30)
[2019-10-13] MEDS: hydrALAZINE HCL 50 MG TABLET (FP) PO SCH ×2 (09:49→22:00)
[2019-10-13] MEDS: amLODIPine BESYLATE 5 MG TABLET (FP) PO SCH (09:49)
[2019-10-13] MEDS: ASPIRIN COATED 81 MG TABLET.EC PO SCH (09:49)
[2019-10-13] MEDS: CARVEDILOL 12.5 MG TABLET (FP) PO SCH ×2 (09:49→21:27)
[2019-10-13] MEDS ORDERED: LIDOCAINE HCL 1%, 10 MG/ML (20ML VIAL) ONE (11:05)
[2019-10-13] MEDS ORDERED: SODIUM CHLORIDE 250 ML IV PRN (12:44)
--- NOTE | 2019-10-13 12:44 | PN ---
Progress Note, Physician Chief Complaint: Renal failure History of Present Illness: Seen and examined at the bedside awake and alert offers no acute complaints no sob, cp, fever, chills s/p dialysis Thursday planned to have AVF/AVG placed today - Current Medication List Current Medications: Active Medications Amlodipine Besylate (Norvasc -) 10 mg PO DAILY [facility] Last Admin: 10/13/19 09:49 Dose: Not Given Documented by: Aspirin (Ecotrin -) 81 mg PO DAILY [facility] Last Admin: 10/13/19 09:49 Dose: Not Given Documented by: Atorvastatin Calcium (Lipitor -) 10 mg PO HS [facility] Last Admin: 10/12/19 21:26 Dose: 10 mg Documented by: Calcium Acetate (Phoslo -) 667 mg PO TIDCM [facility] Last Admin: 10/13/19 11:47 Dose: Not Given Documented by: Carvedilol (Coreg -) 12.5 mg PO BID [facility] Last Admin: 10/13/19 09:49 Dose: Not Given Documented by: Docusate Sodium (Colace -) 100 mg PO TID [facility] Last Admin: 10/13/19 06:07 Dose: Not Given Documented by: Heparin Sodium (Porcine) (Heparin -) 5,000 unit SQ TID [facility] Last Admin: 10/13/19 06:08 Dose: Not Given Documented by: Hydralazine HCl (Apresoline -) 50 mg PO BID [facility] Last Admin: 10/13/19 09:49 Dose: Not Given Documented by: Insulin Aspart (Novolog Vial Sliding Scale -) 1 vial SQ [facility]; Protocol Last Admin: 10/13/19 11:46 Dose: Not Given Documented by: Polyethylene Glycol (Miralax (For Daily Use) -) 17 gm PO BID [facility] Last Admin: 10/13/19 09:49 Dose: Not Given Documented by: Sitagliptin Phosphate (Januvia -) 25 mg PO DAILY@0700 [facility] Last Admin: 10/13/19 06:08 Dose: Not Given Documented by: - Objective Vital Signs: Vital Signs Temperature 98.9 F 10/13/19 10:00 Pulse Rate 68 10/13/19 10:00 Respiratory Rate 18 10/13/19 10:00 Blood Pressure 156/64 10/13/19 10:00 O2 Sat by Pulse Oximetry (%) 96 08/27/20 10:00 Constitutional: Yes: No Distress, Calm HENT: Yes: Atraumatic Neck: Yes: Supple Respiratory: Yes: Regular Gastrointestinal: Yes: Soft Extremities: No: Cyanosis Edema: No Neurological: Yes: Alert Labs: CBC, BMP 10/13/19 07:13 10/13/19 07:13 INR, PTT INR 1.03 (0.83-1.09) 09/25/19 00:09 Assessment/Plan 69 year old male with history of hypertension, non-insulin dependent DM, cardiomyopathy, and possible CKD who came from the [facility] [place] and presented to the ED with complaints of leg swelling and syncope and found to have renal failure and hyperkalemia. 1. ESRD requiring dialysis secondary to severe diabetic nephropathy (biopsy proven) 2. Hyperkalemia now resolved 3. Volume overload 4. Metabolic acidosis 5. Anemia 6. Hypertension 7. DM not on insulin 9. Cardiomyopathy No acute need for dialysis today, next dialysis planned for Thursday. continue Hd 3x weekly for ESRD from diabetic nephropathy for AVF placement Today as per Vascular Still awaiting insurance authorization for outpatient dialysis placement. Renal diet There is no Renal contraindication for planned vascular procedure. Thank you Luiz Galdamez DO
--- NOTE | 2019-10-13 14:25 | PN ---
Physical Exam: SUBJECTIVE: Patient seen and examined at bedside. No acute events reported overnight. Patient has no concerns or complaints this morning. Patient is scheduled for AVF/AVG placement today in the OR. OBJECTIVE: Vital Signs Period Temp Pulse Resp BP Sys/Lopes Pulse Ox Last 24 Hr 98.6 F-99.2 F 68-80 18-20 137-156/54-71 96-99 GENERAL: AAOx3, in no acute distress HEENT: NCAT, PERRLA, EOMI, sclera anicteric, conjunctiva clear, oropharynx clear w/o exudates. MMM. NECK: Normal ROM, supple, no lymphadenopathy, JVD, or masses LUNGS: CTABL no wheezes/ rhonchi/ rales. No distress, speaks in full sentences. No increased work of breathing. HEART: RRR, normal S1 S2, no M/R/G, peripheral pulses 2+ and equal b/l ABDOMEN: Soft, NTND, + BS. No guarding or rebound. No hepatomegaly or splenomegaly. MSK: ROM WNL EXTREMITIES: Normal inspection. No peripheral edema. No clubbing or cyanosis. NEUROLOGICAL: CN II-XII intact. Normal speech, normal gait, no focal sensorimotor deficits. SKIN: Warm, Dry, normal turgor, no rashes or lesions noted Laboratory Results - last 24 hr CBC, BMP 10/13/19 07:13 10/13/19 07:13 10/12/19 10/12/19 10/13/19 16:42 21:25 06:07 WBC RBC Hgb Hct MCV MCH MCHC RDW Plt Count MPV Absolute Neuts (auto) Neutrophils % Lymphocytes % Monocytes % Eosinophils % Basophils % Nucleated RBC % Sodium Potassium Chloride Carbon Dioxide Anion Gap BUN Creatinine Est GFR (CKD-EPI)AfAm Est GFR (CKD-EPI)NonAf POC Glucometer 145 211 130 Random Glucose Calcium 10/13/19 10/13/19 10/13/19 07:13 07:13 11:45 WBC 5.5 RBC 3.19 L Hgb 9.5 L Hct 29.2 L MCV 91.8 MCH 29.7 MCHC 32.4 RDW 16.7 H Plt Count 166 D MPV 8.9 Absolute Neuts (auto) 3.4 Neutrophils % 61.6 Lymphocytes % 20.9 Monocytes % 12.4 H Eosinophils % 4.5 Basophils % 0.6 Nucleated RBC % 0 Sodium 139 Potassium 4.0 Chloride 102 Carbon Dioxide 28 Anion Gap 9 BUN 57.4 H Creatinine 6.9 H Est GFR (CKD-EPI)AfAm 8.64 Est GFR (CKD-EPI)NonAf 7.45 POC Glucometer 145 Random Glucose 119 H Calcium 8.5 Active Medications Generic Name Dose Route Start Last Admin Trade Name Freq PRN Reason Stop Dose Admin Amlodipine Besylate 10 mg 10/05/19 10:29 10/13/19 09:49 Norvasc - PO Not Given DAILY [facility] Aspirin 81 mg 10/05/19 19:00 10/13/19 09:49 Ecotrin - PO Not Given DAILY [facility] Atorvastatin Calcium 10 mg 10/05/19 22:00 10/12/19 21:26 Lipitor - PO 10 mg HS [facility] Administration Calcium Acetate 667 mg 10/03/19 17:30 10/13/19 11:47 Phoslo - PO Not Given TIDCM [facility] Carvedilol 12.5 mg 10/05/19 22:00 10/13/19 09:49 Coreg - PO Not Given BID [facility] Docusate Sodium 100 mg 10/05/19 22:00 10/13/19 13:19 Colace - PO Not Given TID [facility] Epoetin Efrem-epbx 10,000 unit 10/14/19 08:00 Retacrit IVPUSH 10/14/19 08:01 ONCE ONE Heparin Sodium (Porcine) 5,000 unit 10/12/19 16:00 10/13/19 13:19 Heparin - SQ Not Given TID [facility] Hydralazine HCl 50 mg 10/09/19 22:00 10/13/19 09:49 Apresoline - PO Not Given BID [facility] Sodium Chloride 250 mls @ 3,000 mls/hr 10/13/19 12:44 Normal Saline - IV 10/14/19 12:44 PRN PRN Hypotension during Dialysis Insulin Aspart 1 vial 10/03/19 16:30 10/13/19 11:46 Novolog Vial Sliding Scale - SQ Not Given ACHS [facility] Protocol Polyethylene Glycol 17 gm 10/07/19 10:00 10/13/19 09:49 Miralax (For Daily Use) - PO Not Given BID [facility] Sitagliptin Phosphate 25 mg 10/04/19 07:00 10/13/19 06:08 Januvia - PO Not Given DAILY@0700 [facility] ASSESSMENT/PLAN: 69 yo undocumented M from [facility] [place] with PMHx of hypertension, non- insulin dependent Diabetes Mellitus, Cardiomyopathy w/ preserved EF, and CKD, presented to the ED with SoB, syncope, LE edema and was noted to have severe diabetic nephropathy and hyperkalemia requiring HD. Permacath was placed and dialysis was started. #ESRD likely secondary to severe untreated diabetic nephropathy -Requires Dialysis -Currently has Permacath -Vascular Surgery Consulted: Left Arm AV Fistula/Graft planned for today -cleared by cardiology for the procedure #Chronic Anemia likely 2/2 CKD -Monitor CBC -Continue Epo Alpha #Hx of Diastolic CHF -ECHO: EF: 60-65% -LA mildy dilated #HTN -BP stable, monitor Vital Signs 2/2 increase in BP Meds -Continue Amlodine -Continue Coreg -Continue Hydralazine -Continue ASA #Diabetes Mellitus -Januvia 25mg qdaily -Atorvastatin 2/2 DM and Cardiac Risk Factor Equivalent -ISS w/ BGM #Hypocalcemia 2/2 ESRD -Continue Phoslo #Social Work -Social Work Consulted -follow up with immigration status for discharge planning #FEN Fluids: No standing fluids, limit excessive fluid intake Electrolytes: Monitor Ca++ Nutrition: Renal Diet Dispo: Continue med/surg management. FU social work w/ goal of outpatient hemodialysis Visit type - Emergency Visit Emergency Visit: No - New Patient This patient is new to me today: Yes Date on this admission: 10/13/19 - Critical Care Critical Care patient: No - Discharge Referral Referred to [facility] Med P.C.: No - Medication Review Med list reviewed for High Risk Meds patients 65 and older: Yes ATTENDING PHYSICIAN STATEMENT I saw and evaluated the patient. I reviewed the resident's note and discussed the case with the resident. I agree with the resident's findings and plan as documented. SUBJECTIVE: OBJECTIVE: ASSESSMENT AND PLAN:
[2019-10-13] MEDS ORDERED: ceFAZolin SODIUM 1 GM VIAL ONE (15:37)
[2019-10-13] MEDS ORDERED: PROPOFOL 20 ML ONE ×2 (15:37)
[2019-10-13] MEDS ORDERED: LIDOCAINE HCL/PF 2% SDV 5ML VIAL ONE (15:37)
[2019-10-13] MEDS ORDERED: MIDAZOLAM HCL 2 MG/2 ML SINGLE DOSE VIAL ONE (15:37)
[2019-10-13] MEDS ORDERED: ceFAZolin SODIUM 1 GM VIAL IVPB ONE (16:00)
[2019-10-13] MEDS ORDERED: LIDOCAINE HCL 1%, 10 MG/ML (50 mL VIAL) NR ONE (16:10)
[2019-10-13] MEDS ORDERED: HEPARIN NA (PORCINE) 5,000 UNITS/ML 1ML VIAL ONE (16:38)
[2019-10-13] MEDS ORDERED: POVIDONE-IODINE OINTMENT 10% - 28.4 GM TUBE ONE (17:18)
[2019-10-13] MEDS ORDERED: PROMETHAZINE HCL 25 MG/1 ML VIAL IVPUSH PRN ×2 (17:35→18:10)
[2019-10-13] MEDS ORDERED: ONDANSETRON 4 MG/2 ML VIAL IVPUSH PRN ×2 (17:35→18:10)
--- NOTE | 2019-10-13 17:39 | OP ---
Operative Note - Note: Operative Date: 10/13/19 Pre-Operative Diagnosis: ESRD Operation: Creation of left radial to cephalic vein fistula Post-Operative Diagnosis: Same as Pre-op Surgeon: Ronnie Ly Anesthesia: MAC Estimated Blood Loss (mls): 20 Operative Report Dictated: Yes
[2019-10-13] MEDS ORDERED: SODIUM CHLORIDE 1,000 ML IV SCH ×2 (17:45→18:10)
[2019-10-13] MEDS ORDERED: EPOETIN ALFA 10,000 UNIT/1 ML VIAL IVPUSH ONE (18:10)
--- NOTE | 2019-10-13 18:57 | PN ---
Teaching Attending Note Name of Resident: Minh Buchanan ATTENDING PHYSICIAN STATEMENT I saw and evaluated the patient. I reviewed the resident's note and discussed the case with the resident. I agree with the resident's findings and plan as documented. SUBJECTIVE: Patient is going for AV fistula today OBJECTIVE: Vital Signs Temperature 97.7 F 10/13/19 17:28 Pulse Rate 54 L 10/13/19 18:30 Respiratory Rate 16 10/13/19 18:30 Blood Pressure 161/56 L 10/13/19 18:30 O2 Sat by Pulse Oximetry (%) 100 10/13/19 18:30 PE: per resident's note CBCD WBC 5.5 K/mm3 (4.0-10.0) 10/13/19 07:13 RBC 3.19 M/mm3 (4.00-5.60) L 10/13/19 07:13 Hgb 9.5 GM/dL (11.7-16.9) L 10/13/19 07:13 Hct 29.2 % (35.4-49) L 10/13/19 07:13 MCV 91.8 fl (80-96) 10/13/19 07:13 MCHC 32.4 g/dl (32.0-35.9) 10/13/19 07:13 RDW 16.7 % (11.9-15.9) H 10/13/19 07:13 Plt Count 166 K/MM3 (134-434) D 10/13/19 07:13 MPV 8.9 fl (7.5-11.1) 10/13/19 07:13 CMP Sodium 139 mmol/L (136-145) 10/13/19 07:13 Potassium 4.0 mmol/L (3.5-5.1) 10/13/19 07:13 Chloride 102 mmol/L (98-107) 10/13/19 07:13 Carbon Dioxide 28 mmol/L (21-32) 10/13/19 07:13 Anion Gap 9 MMOL/L (8-16) 10/13/19 07:13 BUN 57.4 mg/dL (7-18) H 10/13/19 07:13 Creatinine 6.9 mg/dL (0.55-1.3) H 10/13/19 07:13 Random Glucose 119 mg/dL (74-106) H 10/13/19 07:13 Calcium 8.5 mg/dL (8.5-10.1) 10/13/19 07:13 Total Bilirubin 0.5 mg/dL (0.2-1) 10/09/19 07:10 AST 36 U/L (15-37) 10/09/19 07:10 ALT 65 U/L (13-61) H 10/09/19 07:10 Alkaline Phosphatase 68 U/L (45-117) 10/09/19 07:10 Total Protein 6.3 g/dl (6.4-8.2) L 10/09/19 07:10 Albumin 3.0 g/dl (3.4-5.0) L 10/09/19 07:10 CARDIAC ENZYMES Creatine Kinase 418 U/L (26-308) H 09/29/19 06:05 Troponin I 0.07 ng/ml (0.00-0.05) H 09/29/19 06:05 Current Medications Generic Name Dose Route Start Last Admin Trade Name Freq PRN Reason Stop Dose Admin Amlodipine Besylate 10 mg 10/14/19 10:00 Norvasc - PO DAILY [facility] Aspirin 81 mg 10/14/19 10:00 Ecotrin - PO DAILY [facility] Atorvastatin Calcium 10 mg 10/13/19 22:00 Lipitor - PO HS [facility] Calcium Acetate 667 mg 10/14/19 08:00 Phoslo - PO TIDCM [facility] Carvedilol 12.5 mg 10/13/19 22:00 Coreg - PO BID [facility] Docusate Sodium 100 mg 10/13/19 22:00 Colace - PO TID [facility] Epoetin Efrem-epbx 10,000 unit 10/14/19 08:00 Retacrit IVPUSH 10/14/19 08:01 ONCE ONE Fentanyl 50 mcg 10/13/19 18:10 10/13/19 18:30 Sublimaze Injection - IVPUSH 50 mcg [id number] PRN Administration PAIN-PACU ORDER X 4 DOSES ONLY Heparin Sodium (Porcine) 5,000 unit 10/13/19 22:00 Heparin - SQ TID [facility] Hydralazine HCl 50 mg 10/13/19 22:00 Apresoline - PO BID [facility] Sodium Chloride 250 mls @ 3,000 mls/hr 10/13/19 18:10 Normal Saline - IV 10/14/19 12:44 PRN PRN Hypotension during Dialysis Sodium Chloride 1,000 mls @ 42 mls/hr 10/13/19 18:10 Normal Saline - IV ASDIR [facility] Insulin Aspart 1 vial 10/13/19 22:00 Novolog Vial Sliding Scale - SQ ACHS [facility] Protocol Ondansetron HCl 4 mg 10/13/19 18:10 Zofran Injection IVPUSH Q6H PRN NAUSEA AND/OR VOMITING Polyethylene Glycol 17 gm 10/13/19 22:00 Miralax (For Daily Use) - PO BID [facility] Promethazine HCl 12.5 mg 10/13/19 18:10 Phenergan Injection - IVPUSH Q6H PRN NAUSEA-FOR RESCUE AFTER 15 MIN Sitagliptin Phosphate 25 mg 10/14/19 07:00 Januvia - PO DAILY@0700 [facility] Home Medications Medication Instructions Recorded Amlodipine Besylate [Norvasc -] 10 mg PO DAILY 09/27/19 Irbesartan [Avapro] 300 mg PO DAILY 09/27/19 metFORMIN HCL [Metformin HCl] 850 mg PO DAILY 09/27/19 ASSESSMENT AND PLAN: This patient is a 69yom with PMhx of HTN, T2DM , cardiomyopathy, and possible CKD , who presented with LE edema and was found to have severe diabetic nephropathy and hyperkalemia requiring HD. # ESRD due to having diabetic nephropathy on HD ,going for AVF, pending HD center # S/p Hyperkalemia #Hx of HTN/ DM /chronic Anemia due to ESRD ,continue norvasc , ccb , coreg , and HZN ,SSI with coverage #s/p diastolic CHF. resolved.continue asa and statin ,coreg # hep B vaccine as out pt DVT Px: Heparin SQ
--- NOTE | 2019-10-13 19:20 | SURG ---
Surgery Casing Blower Note Casing Blower: Darrell Heredia PA-C Date of Service: 10/13/19 Diagnosis: ESRD Procedure: Creation of left radial to cephalic vein fistula I was present for the entirety of the operative procedure. For further detail, please refer to operative report. Visit type - Case Type Case Type: ED Admission
[2019-10-13] MEDS: ATORVASTATIN CA 10 MG TABLET (FP) PO SCH (21:27)
[2019-10-14] MEDS ORDERED: MORPHINE SULFATE 2 MG/ML VIAL IVPUSH ONE (00:21)
[2019-10-14] MEDS ORDERED: oxyCODONE HCL 5 MG TABLET PO ONE (00:22)
--- NOTE | 2019-10-14 05:44 | PN ---
Progress Note, Physician Chief Complaint: Pt A&Ox3; tired; no chest pain or dyspnea. History of Present Illness: Mr. Vuong is a 69 year old male (. [facility]) with a significant past medical history of HTN, DM, CHF, and renal dysfunction, who presents to the ED with 4 months of bilateral LE edema. As per patient, he presented to the ED from the [facility] secondary to receiving inadequate care. Patient also endorses one month of intermittent shortness of breath, occasional mild sharp central chest pain on exertion lasting a few seconds, bilateral kidney pain and 4 episodes of syncope last week, with head injury. Denies fever, chills, headache, nausea, vomiting, or urinary changes. - Current Medication List Current Medications: Active Medications Amlodipine Besylate (Norvasc -) 10 mg PO DAILY [facility] Aspirin (Ecotrin -) 81 mg PO DAILY [facility] Atorvastatin Calcium (Lipitor -) 10 mg PO HS [facility] Last Admin: 10/13/19 21:27 Dose: 10 mg Documented by: Calcium Acetate (Phoslo -) 667 mg PO TIDCM [facility] Carvedilol (Coreg -) 12.5 mg PO BID [facility] Last Admin: 10/13/19 21:27 Dose: 12.5 mg Documented by: Docusate Sodium (Colace -) 100 mg PO TID [facility] Last Admin: 10/13/19 21:27 Dose: 100 mg Documented by: Epoetin Efrem-epbx (Retacrit) 10,000 unit IVPUSH ONCE ONE Stop: 10/14/19 08:01 Fentanyl (Sublimaze Injection -) 50 mcg IVPUSH [id number] PRN PRN Reason: PAIN-PACU ORDER X 4 DOSES ONLY Last Admin: 10/13/19 18:30 Dose: 50 mcg Documented by: Heparin Sodium (Porcine) (Heparin -) 5,000 unit SQ TID [facility] Last Admin: 10/13/19 21:27 Dose: 5,000 unit Documented by: Hydralazine HCl (Apresoline -) 50 mg PO BID [facility] Last Admin: 10/13/19 22:00 Dose: 50 mg Documented by: Sodium Chloride (Normal Saline -) 250 mls @ 3,000 mls/hr IV PRN PRN PRN Reason: Hypotension during Dialysis Stop: 10/14/19 12:44 Insulin Aspart (Novolog Vial Sliding Scale -) 1 vial SQ ACHS [facility]; Protocol Last Admin: 10/13/19 21:30 Dose: Not Given Documented by: Ondansetron HCl (Zofran Injection) 4 mg IVPUSH Q6H PRN PRN Reason: NAUSEA AND/OR VOMITING Polyethylene Glycol (Miralax (For Daily Use) -) 17 gm PO BID [facility] Last Admin: 10/13/19 21:30 Dose: Not Given Documented by: Promethazine HCl (Phenergan Injection -) 12.5 mg IVPUSH Q6H PRN PRN Reason: NAUSEA-FOR RESCUE AFTER 15 MIN Sitagliptin Phosphate (Januvia -) 25 mg PO DAILY@0700 [facility] - Objective Vital Signs: Vital Signs Temperature 98.8 F 10/14/19 01:24 Pulse Rate 70 10/14/19 01:24 Respiratory Rate 20 10/14/19 01:24 Blood Pressure 135/54 L 10/14/19 01:24 O2 Sat by Pulse Oximetry (%) 95 10/14/19 01:24 Constitutional: Yes: Anxious Eyes: Yes: WNL HENT: Yes: WNL Neck: Yes: WNL Cardiovascular: Yes: S1, S2, S4 Respiratory: Yes: Regular Gastrointestinal: Yes: Soft ...Rectal Exam: Yes: Deferred Genitourinary: No: Anuria Breast(s): Yes: WNL Musculoskeletal: Yes: Muscle Weakness Extremities: Yes: Cool Edema: No Peripheral Pulses WNL: Yes Integumentary: Yes: WNL Neurological: Yes: Alert, Oriented Psychiatric: Yes: Alert, Oriented, Other (anxiety) Labs: CBC, BMP 10/13/19 07:13 10/13/19 07:13 INR, PTT INR 1.03 (0.83-1.09) 09/25/19 00:09 Abnormal Lab Results 10/13/19 10/13/19 07:13 07:13 RBC 3.19 L Hgb 9.5 L Hct 29.2 L RDW 16.7 H Monocytes % 12.4 H BUN 57.4 H Creatinine 6.9 H Random Glucose 119 H - ....Imaging Chest X-ray: Image Reviewed EKG: Image Reviewed Assessment/Plan ESRD; on hemodialysis Bilateral LE edema x several months Intermittent shortness of breath Syncope x 4 recently anemia severe hyperkalemia rhabdomyolysis HTN diastolic CHF elevated TNI; stress MIBI now shows small area of mildly intense inferior ischemia EKG: NSR; ? old septal infarct ECHO: normal LVEF; abnormal diastolic compliance; mild-moderate LVH; small pericardial effusion Rec: From cardiac standpoint, there are no absolute contraindications for Mr. Vuong to undergo AV fistula or graft, which is planned for today. s/p renal biopsy; await results. Increased amlodipine to 10 mg daily; increased hydralazine to 25 mg bid; ritu nue Coreg;f/u BP and HR serially. Corrected hyperkalemia: off Lokelma Cholesterol: LDL 68; HDL 45; continue atorvastatin; follow heart-healthy diet; increase exercise. CT head: no acute intracranial pathology
[2019-10-14] MEDS: HEPARIN NA (PORCINE) 5,000 UNITS/ML 1ML VIAL SQ SCH ×3 (06:16→22:07)
[2019-10-14] MEDS: DOCUSATE SODIUM 100 MG CAPSULE (FP) PO SCH ×3 (06:16→22:07)
[2019-10-14] MEDS: INSULIN SLIDING SCALE (NOVOLOG) 1 VIAL SQ SCH ×4 (07:00→22:06)
[2019-10-14] MEDS ORDERED: EPOETIN ALFA-EPBX 10,000 UNIT/ML VIAL IVPUSH ONE ×2 (08:00→09:00)
--- NOTE | 2019-10-14 08:06 | PN ---
Progress Note (short form) - Note Progress Note: VASCULAR 69yo M s/p LLE AV fistula creation POD 1. Pt seen at bedside. Pt complains of mild incisional pain, denies numbness or weakness in the hand. Pt denies fever, chills, n/v. Last Vital Signs Temp Pulse Resp BP Pulse Ox 98.9 F 65 20 145/68 98 10/14/19 06:00 10/14/19 06:00 10/14/19 06:00 10/14/19 06:00 10/14/19 06:00 CBC, BMP 10/13/19 07:13 10/13/19 07:13 PE: Gen: A&OX 3 Resp: breathing comfortably LLE: Incision clean, dressing intact. +thrill, no weakness or numbness. Problem List - Problems (1) ESRD (end stage renal disease) Assessment/Plan: Plan - AV fistula appears to be good, pt cleared to be discharged home from vascular standpoint. -pt should follow up with Dr. Ly in 2 weeks for outpatient check. Code(s): N18.6 - END STAGE RENAL DISEASE
--- NOTE | 2019-10-14 08:31 | PN ---
Progress Note, Physician History of Present Illness: Mr. Vuong is a 69 year old male (. [facility]) with a significant past medical history of HTN, DM, CHF, and renal dysfunction, who presents to the ED with 4 months of bilateral LE edema. As per patient, he presented to the ED from the [facility] secondary to receiving inadequate care. Patient also endorses one month of intermittent shortness of breath, chest pain on exertion, bilateral kidney pain and 4 episodes of syncope last week, with head injury. Denies fever, chills, headache, nausea, vomiting, or urinary changes. - Current Medication List Current Medications: Active Medications Amlodipine Besylate (Norvasc -) 10 mg PO DAILY [facility] Aspirin (Ecotrin -) 81 mg PO DAILY [facility] Atorvastatin Calcium (Lipitor -) 10 mg PO HS [facility] Last Admin: 10/13/19 21:27 Dose: 10 mg Documented by: Calcium Acetate (Phoslo -) 667 mg PO TIDCM [facility] Carvedilol (Coreg -) 12.5 mg PO BID [facility] Last Admin: 10/13/19 21:27 Dose: 12.5 mg Documented by: Docusate Sodium (Colace -) 100 mg PO TID [facility] Last Admin: 10/14/19 06:16 Dose: 100 mg Documented by: Epoetin Efrem-epbx (Retacrit) 10,000 unit IVPUSH ONCE ONE Stop: 10/14/19 08:01 Fentanyl (Sublimaze Injection -) 50 mcg IVPUSH [id number] PRN PRN Reason: PAIN-PACU ORDER X 4 DOSES ONLY Last Admin: 10/13/19 18:30 Dose: 50 mcg Documented by: Heparin Sodium (Porcine) (Heparin -) 5,000 unit SQ TID [facility] Last Admin: 10/14/19 06:16 Dose: 5,000 unit Documented by: Hydralazine HCl (Apresoline -) 50 mg PO BID [facility] Last Admin: 10/13/19 22:00 Dose: 50 mg Documented by: Sodium Chloride (Normal Saline -) 250 mls @ 3,000 mls/hr IV PRN PRN PRN Reason: Hypotension during Dialysis Stop: 10/14/19 12:44 Insulin Aspart (Novolog Vial Sliding Scale -) 1 vial SQ [facility]; Protocol Last Admin: 10/13/19 21:30 Dose: Not Given Documented by: Ondansetron HCl (Zofran Injection) 4 mg IVPUSH Q6H PRN PRN Reason: NAUSEA AND/OR VOMITING Polyethylene Glycol (Miralax (For Daily Use) -) 17 gm PO BID [facility] Last Admin: 10/13/19 21:30 Dose: Not Given Documented by: Promethazine HCl (Phenergan Injection -) 12.5 mg IVPUSH Q6H PRN PRN Reason: NAUSEA-FOR RESCUE AFTER 15 MIN Sitagliptin Phosphate (Januvia -) 25 mg PO DAILY@0700 [facility] Last Admin: 10/14/19 06:16 Dose: 25 mg Documented by: - Objective Vital Signs: Vital Signs Temperature 98.9 F 10/14/19 06:00 Pulse Rate 65 10/14/19 06:00 Respiratory Rate 20 10/14/19 06:00 Blood Pressure 145/68 10/14/19 06:00 O2 Sat by Pulse Oximetry (%) 98 10/14/19 06:00 Eyes: Yes: WNL, Conjunctiva Clear, EOM Intact HENT: Yes: WNL, Atraumatic, Normocephalic Neck: Yes: WNL, Supple, Trachea Midline Cardiovascular: Yes: WNL, Regular Rate and Rhythm Respiratory: Yes: WNL, Regular, CTA Bilaterally Gastrointestinal: Yes: WNL, Normal Bowel Sounds Genitourinary: Yes: WNL Musculoskeletal: Yes: WNL Extremities: Yes: WNL Edema: No Integumentary: Yes: WNL Neurological: Yes: WNL, Alert, Oriented ...Motor Strength: WNL Psychiatric: Yes: WNL Labs: CBC, BMP 10/13/19 07:13 10/13/19 07:13 INR, PTT INR 1.03 (0.83-1.09) 09/25/19 00:09 Problem List - Problems (1) Diabetes Code(s): E11.9 - TYPE 2 DIABETES MELLITUS WITHOUT COMPLICATIONS (2) Hyperkalemia Code(s): E87.5 - HYPERKALEMIA (3) Hypertension Code(s): I10 - ESSENTIAL (PRIMARY) HYPERTENSION (4) Kidney failure Code(s): N19 - UNSPECIFIED KIDNEY FAILURE Qualifiers: Renal failure chronicity: acute on chronic Assessment/Plan ssessment/Plan ESRD; on hemodialysis Bilateral LE edema x several months Intermittent shortness of breath Syncope x 4 recently anemia severe hyperkalemia rhabdomyolysis HTN diastolic CHF elevated TNI; stress MIBI now shows small area of mildly intense inferior ischemia EKG: NSR; ? old septal infarct ECHO: normal LVEF; abnormal diastolic compliance; mild-moderate LVH; small pericardial effusion Rec: From cardiac standpoint, there are no absolute contraindications for Mr. Vuong to undergo AV fistula or graft, which is planned for today. s/p renal biopsy; await results. Increased amlodipine to 10 mg daily; increased hydralazine to 25 mg bid; continue Coreg;f/u BP and HR serially. Corrected hyperkalemia: off Lokelma Cholesterol: LDL 68; HDL 45; continue atorvastatin; follow heart-healthy diet; increase exercise. CT head: no acute intracranial pathology
[2019-10-14 08:44] LABS: BASO % 0.6 % (0-2.0); EOS % 2.9 % (0-4.5); HEMATOCRIT 31.6 % (35.4-49); LYMPH % 14.2 % (8-40); MCH 28.8 pg (25.7-33.7); MCHC 31.7 g/dl (32.0-35.9); MEAN CELL VOLUME 90.9 fl (80-96); MEAN PLT VOLUME 8.7 fl (7.5-11.1); MONO % 9.6 % (3.8-10.2); NEUT % 72.7 % (42.8-82.8); PLATELET COUNT 213 K/MM3 (134-434); RBC 3.48 M/mm3 (4.00-5.60); RDW 16.5 % (11.9-15.9); WHITE BLOOD COUNT 8.3 K/mm3 (4.0-10.0)
[2019-10-14] MEDS ORDERED: SODIUM CHLORIDE 250 ML IV PRN (09:00)
[2019-10-14] MEDS: CALCIUM ACETATE 667 MG CAPSULE (FP) PO SCH ×3 (09:31→17:06)
[2019-10-14] MEDS: POLYETHYLENE GLYCOL 3350 119 GM BTL PO SCH ×2 (10:05→22:13)
--- NOTE | 2019-10-14 12:05 | PATH ---
Surgical Pathology Report Patient Name: ERWIN JIMENEZ Med. Rec. #: [id number] /Age/Gender: 1950 (Age: 69) / M Account: [id number] Location: [address] [place] [address]/[facility] Taken: 09/28/2019 Received: 09/28/2019 Reported: 10/14/2019 Physicians: Raul Pathak MD Specimen(s) Received RENAL BIOPSY Clinical History 69-year-old male with hypertension, DM II, and CHF now with JAQUELINE and hyperkalemia Intraoperative Consult Diagnosis Renal biopsy: Glomeruli present. Qasim Cisneros M.D., 09/28/2019 Final Diagnosis RENAL, BIOPSY: NODULAR DIABETIC GLOMERULOSCLEROSIS, SEVERE, WITH SEGMENTAL SCLEROSING FEATURES. TUBULAR ATROPHY AND INTERSTITIAL FIBROSIS, SEVERE. ARTERIO-AND ARTERIOSCLEROSIS, SEVERE. SEE COMMENT. Comment: The immunofluorescence findings provide evidence against glomerular disease of the immune complex type. The biopsy demonstrates severe nodular diabetic glomerulosclerosis with segmental sclerosing features, severe tubulointerstitial scarring, and severe vascular sclerosis. The findings are largely chronic. In this patient from [facility], high degree of chronicity may also be related to underlying APOL1 risk variant. Electron microscopy is pending and may be contributory. Case sent for consultation to Dr. Derek Armstrong from [place], [place] ([id number]), the diagnosis above reflects his opinion. See complete report from [place], [place] for additional details. Electronically Signed Taniya Noyola M.D. Gross Description Received in saline labeled "renal biopsy," are 2 sauer-red, cylindrical portions of soft tissue averaging 1.5 cm in length and 0.1 cm in diameter. The specimens are divided, placed in 10% buffered formalin, Adam fixative and glutaraldehyde. The specimen is sent to [facility] for further studies. /09/28/2019 [facility]09/28/2019
--- NOTE | 2019-10-14 12:08 | PN ---
Physical Exam: SUBJECTIVE: Patient seen and examined this morning, expressed pain overnight at the new fistula site and required morphine to sleep. OBJECTIVE: Vital Signs Period Temp Pulse Resp BP Sys/Lopes Pulse Ox Last 24 Hr 97.4 F-98.9 F 54-85 14-20 135-190/54-85 95-100 GENERAL: The patient is awake, alert, and fully oriented, in no acute distress. HEAD: Normal with no signs of trauma. EYES: PERRL, extraocular movements intact NECK: Trachea midline, full range of motion, supple. LUNGS: Breath sounds equal, clear to auscultation bilaterally, no wheezes, no crackles, no accessory muscle use. HEART: Regular rate and rhythm, S1, S2 without murmur, rub or gallop. ABDOMEN: Soft, nontender, nondistended, normoactive bowel sounds. EXTREMITIES: Left sided AVF for Dialysis. 2+ pulses, warm, well-perfused, no edema. NEUROLOGICAL: Normal speech, gait not observed. PSYCH: Normal mood, normal affect. SKIN: Warm, dry, normal turgor, no rashes or lesions noted Laboratory Results - last 24 hr CBC, BMP 10/14/19 07:37 10/13/19 07:13 Active Medications Generic Name Dose Route Start Last Admin Trade Name Freq PRN Reason Stop Dose Admin Amlodipine Besylate 10 mg 10/14/19 10:00 Norvasc - PO DAILY MAT Aspirin 81 mg 10/14/19 10:00 Ecotrin - PO DAILY MAT Atorvastatin Calcium 10 mg 10/13/19 22:00 10/13/19 21:27 Lipitor - PO 10 mg HS MAT Administration Calcium Acetate 667 mg 10/14/19 08:00 10/14/19 09:31 Phoslo - PO 667 mg TIDCM MAT Administration Carvedilol 12.5 mg 10/13/19 22:00 10/13/19 21:27 Coreg - PO 12.5 mg BID MAT Administration Docusate Sodium 100 mg 10/13/19 22:00 10/14/19 06:16 Colace - PO 100 mg TID MAT Administration Fentanyl 50 mcg 10/13/19 18:10 10/13/19 18:30 Sublimaze Injection - IVPUSH 50 mcg [id number] PRN Administration PAIN-PACU ORDER X 4 DOSES ONLY Heparin Sodium (Porcine) 5,000 unit 10/13/19 22:00 10/14/19 06:16 Heparin - SQ 5,000 unit TID MAT Administration Hydralazine HCl 50 mg 10/13/19 22:00 10/13/19 22:00 Apresoline - PO 50 mg BID MAT Administration Insulin Aspart 1 vial 10/13/19 22:00 10/13/19 21:30 Novolog Vial Sliding Scale - SQ Not Given ACHS [facility] Protocol Ondansetron HCl 4 mg 10/13/19 18:10 Zofran Injection IVPUSH Q6H PRN NAUSEA AND/OR VOMITING Polyethylene Glycol 17 gm 10/13/19 22:00 10/13/19 21:30 Miralax (For Daily Use) - PO Not Given BID MAT Promethazine HCl 12.5 mg 10/13/19 18:10 Phenergan Injection - IVPUSH Q6H PRN NAUSEA-FOR RESCUE AFTER 15 MIN Sitagliptin Phosphate 25 mg 10/14/19 07:00 10/14/19 06:16 Januvia - PO 25 mg DAILY@0700 MAT Administration ASSESSMENT/PLAN: 69 yo M citizen of , currently visiting his nephew and undocumented in the [place], with PMHx of hypertension, non-insulin dependent Diabetes Mellitus, Cardiomyopathy w/ preserved EF, and CKD, presented to the ED with SoB, syncope, LE edema and was noted to have severe diabetic nephropathy and hyperkalemia requiring HD. Permacath placement was performed, and dialysis acheived. ESRD likely secondary to severe untreated diabetic nephropathy -Requires Dialysis -AVF Placed on 10/12 -No redness or warmth at the fistula site -Permacath remains in place Chronic Anemia likely 2/2 CKD -Monitor CBC -Continue Epo Alpha Acute on Likely Chronic Diastolic CHF (Poor Medical Treatment/Records, as ptn was previously treated in ) -ECHO: EF: 60-65% -LA mildy dilated Hx of HTN -BP elevated, consider increasing Dosage/frequency -Continue Amlodine -Continue Coreg -Continue Hydralazine -Continue ASA DM -Previously on Metformin, will DC on discharge 2/2 CKD and risk of LA -Outpatient DM management -Januvia 25mg qdaily -Atorvastatin 2/2 DM and Cardiac Risk Factor Equivalent -ISS w/ BGM Hypocalcemia 2/2 ESRD -Continue Phoslo Social Work -Social Work Consulted -Monitor immigration status and DC planning -Cleared for DC by Vascular per their note. FEN Fluids: No standing fluids, limit excessive fluid intake Electrolytes: Follow CMP/BMP Nutrition: Renal Diet Dispo: Continue med/surg management. FU social work w/ goal of outpatient hemodialysis Visit type - Emergency Visit Emergency Visit: No - New Patient This patient is new to me today: No - Critical Care Critical Care patient: No - Medication Review Med list reviewed for High Risk Meds patients 65 and older: Yes ATTENDING PHYSICIAN STATEMENT I saw and evaluated the patient. I reviewed the resident's note and discussed the case with the resident. I agree with the resident's findings and plan as documented. SUBJECTIVE: OBJECTIVE: ASSESSMENT AND PLAN:
[2019-10-14] MEDS: hydrALAZINE HCL 50 MG TABLET (FP) PO SCH ×2 (14:04→22:06)
[2019-10-14] MEDS: CARVEDILOL 12.5 MG TABLET (FP) PO SCH ×2 (14:04→22:07)
[2019-10-14] MEDS: amLODIPine BESYLATE 5 MG TABLET (FP) PO SCH (14:04)
[2019-10-14] MEDS: ASPIRIN COATED 81 MG TABLET.EC PO SCH (14:04)
--- NOTE | 2019-10-14 16:43 | PN ---
Progress Note, Physician Chief Complaint: Renal failure History of Present Illness: Seen and examined at the bedside awake and alert offers no acute complaints no sob, cp, fever, chills s/p dialysis earlier today s/p AVF creation yesterday - Current Medication List Current Medications: Active Medications Amlodipine Besylate (Norvasc -) 10 mg PO DAILY [facility] Last Admin: 10/14/19 14:04 Dose: 10 mg Documented by: Aspirin (Ecotrin -) 81 mg PO DAILY [facility] Last Admin: 10/14/19 14:04 Dose: 81 mg Documented by: Atorvastatin Calcium (Lipitor -) 10 mg PO HS [facility] Last Admin: 10/13/19 21:27 Dose: 10 mg Documented by: Calcium Acetate (Phoslo -) 667 mg PO TIDCM [facility] Last Admin: 10/14/19 14:05 Dose: 667 mg Documented by: Carvedilol (Coreg -) 12.5 mg PO BID [facility] Last Admin: 10/14/19 14:04 Dose: 12.5 mg Documented by: Docusate Sodium (Colace -) 100 mg PO TID [facility] Last Admin: 10/14/19 14:04 Dose: 100 mg Documented by: Fentanyl (Sublimaze Injection -) 50 mcg IVPUSH [id number] PRN PRN Reason: PAIN-PACU ORDER X 4 DOSES ONLY Last Admin: 10/13/19 18:30 Dose: 50 mcg Documented by: Heparin Sodium (Porcine) (Heparin -) 5,000 unit SQ TID [facility] Last Admin: 10/14/19 14:07 Dose: 5,000 unit Documented by: Hydralazine HCl (Apresoline -) 50 mg PO BID [facility] Last Admin: 10/14/19 14:04 Dose: 50 mg Documented by: Insulin Aspart (Novolog Vial Sliding Scale -) 1 vial SQ [facility]; Protocol Last Admin: 10/14/19 11:00 Dose: Not Given Documented by: Ondansetron HCl (Zofran Injection) 4 mg IVPUSH Q6H PRN PRN Reason: NAUSEA AND/OR VOMITING Polyethylene Glycol (Miralax (For Daily Use) -) 17 gm PO BID [facility] Last Admin: 10/14/19 10:05 Dose: Not Given Documented by: Promethazine HCl (Phenergan Injection -) 12.5 mg IVPUSH Q6H PRN PRN Reason: NAUSEA-FOR RESCUE AFTER 15 MIN Sitagliptin Phosphate (Januvia -) 25 mg PO DAILY@0700 MAT Last Admin: 10/14/19 06:16 Dose: 25 mg Documented by: - Objective Vital Signs: Vital Signs Temperature 98.7 F 10/14/19 09:36 Pulse Rate 81 10/14/19 13:05 Respiratory Rate 20 10/14/19 13:05 Blood Pressure 154/72 10/14/19 13:05 O2 Sat by Pulse Oximetry (%) 96 10/14/19 09:36 Constitutional: Yes: No Distress, Calm HENT: Yes: Atraumatic Neck: Yes: Supple Respiratory: Yes: Regular Gastrointestinal: Yes: Soft Edema: No Labs: CBC, BMP 10/14/19 07:37 10/13/19 07:13 INR, PTT INR 1.03 (0.83-1.09) 09/25/19 00:09 Assessment/Plan 69 year old male with history of hypertension, non-insulin dependent DM, cardiomyopathy, and possible CKD who came from the [facility] and presented to the ED with complaints of leg swelling and syncope and found to have renal failure and hyperkalemia. 1. ESRD requiring dialysis secondary to severe diabetic nephropathy (biopsy proven) 2. Hyperkalemia now resolved 3. Volume overload 4. Metabolic acidosis 5. Anemia 6. Hypertension 7. DM not on insulin 9. Cardiomyopathy Tolerated dialysis well today, next planned dialysis on Thursday. continue Hd 3x weekly for ESRD from diabetic nephropathy s/p AVF placement per vascular Still awaiting insurance authorization for outpatient dialysis placement. Renal diet Discharge once outpatient dialysis is secured. Thank you Luiz Galdamez DO
[2019-10-14] MEDS ORDERED: INSULIN (NOVOLOG) ASPART 100 UNITS/ML 10ML VIAL ONE (17:02)
--- NOTE | 2019-10-14 19:01 | PN ---
Teaching Attending Note Name of Resident: Yan Celis ATTENDING PHYSICIAN STATEMENT I saw and evaluated the patient. I reviewed the resident's note and discussed the case with the resident. I agree with the resident's findings and plan as documented. SUBJECTIVE: no new events, comfortable. OBJECTIVE: Vital Signs Temperature 98.7 F 10/14/19 09:36 Pulse Rate 81 10/14/19 13:05 Respiratory Rate 20 10/14/19 13:05 Blood Pressure 154/72 10/14/19 13:05 O2 Sat by Pulse Oximetry (%) 96 10/14/19 09:36 PE:per resident's note CBCD WBC 8.3 K/mm3 (4.0-10.0) 10/14/19 07:37 RBC 3.48 M/mm3 (4.00-5.60) L 10/14/19 07:37 Hgb 10.0 GM/dL (11.7-16.9) L 10/14/19 07:37 Hct 31.6 % (35.4-49) L 10/14/19 07:37 MCV 90.9 fl (80-96) 10/14/19 07:37 MCHC 31.7 g/dl (32.0-35.9) L 10/14/19 07:37 RDW 16.5 % (11.9-15.9) H 10/14/19 07:37 Plt Count 213 K/MM3 (134-434) D 10/14/19 07:37 MPV 8.7 fl (7.5-11.1) 10/14/19 07:37 CMP Sodium 139 mmol/L (136-145) 10/13/19 07:13 Potassium 4.0 mmol/L (3.5-5.1) 10/13/19 07:13 Chloride 102 mmol/L (98-107) 10/13/19 07:13 Carbon Dioxide 28 mmol/L (21-32) 10/13/19 07:13 Anion Gap 9 MMOL/L (8-16) 10/13/19 07:13 BUN 57.4 mg/dL (7-18) H 10/13/19 07:13 Creatinine 6.9 mg/dL (0.55-1.3) H 10/13/19 07:13 Random Glucose 119 mg/dL (74-106) H 10/13/19 07:13 Calcium 8.5 mg/dL (8.5-10.1) 10/13/19 07:13 Total Bilirubin 0.5 mg/dL (0.2-1) 10/09/19 07:10 AST 36 U/L (15-37) 10/09/19 07:10 ALT 65 U/L (13-61) H 10/09/19 07:10 Alkaline Phosphatase 68 U/L (45-117) 10/09/19 07:10 Total Protein 6.3 g/dl (6.4-8.2) L 10/09/19 07:10 Albumin 3.0 g/dl (3.4-5.0) L 10/09/19 07:10 CARDIAC ENZYMES Creatine Kinase 418 U/L (26-308) H 09/29/19 06:05 Troponin I 0.07 ng/ml (0.00-0.05) H 09/29/19 06:05 Current Medications Generic Name Dose Route Start Last Admin Trade Name Freq PRN Reason Stop Dose Admin Amlodipine Besylate 10 mg 10/14/19 10:00 10/14/19 14:04 Norvasc - PO 10 mg DAILY MAT Administration Aspirin 81 mg 10/14/19 10:00 10/14/19 14:04 Ecotrin - PO 81 mg DAILY MAT Administration Atorvastatin Calcium 10 mg 10/13/19 22:00 10/13/19 21:27 Lipitor - PO 10 mg HS MAT Administration Calcium Acetate 667 mg 10/14/19 08:00 10/14/19 17:06 Phoslo - PO 667 mg TIDCM MAT Administration Carvedilol 12.5 mg 10/13/19 22:00 10/14/19 14:04 Coreg - PO 12.5 mg BID MAT Administration Docusate Sodium 100 mg 10/13/19 22:00 10/14/19 14:04 Colace - PO 100 mg TID MAT Administration Fentanyl 50 mcg 10/13/19 18:10 10/13/19 18:30 Sublimaze Injection - IVPUSH 50 mcg [id number] PRN Administration PAIN-PACU ORDER X 4 DOSES ONLY Heparin Sodium (Porcine) 5,000 unit 10/13/19 22:00 10/14/19 14:07 Heparin - SQ 5,000 unit TID MAT Administration Hydralazine HCl 50 mg 10/13/19 22:00 10/14/19 14:04 Apresoline - PO 50 mg BID MAT Administration Insulin Aspart 1 vial 10/13/19 22:00 10/14/19 17:05 Novolog Vial Sliding Scale - SQ 2 units ACHS MAT Administration Protocol Ondansetron HCl 4 mg 10/13/19 18:10 Zofran Injection IVPUSH Q6H PRN NAUSEA AND/OR VOMITING Polyethylene Glycol 17 gm 10/13/19 22:00 10/14/19 10:05 Miralax (For Daily Use) - PO Not Given BID [facility] Promethazine HCl 12.5 mg 10/13/19 18:10 Phenergan Injection - IVPUSH Q6H PRN NAUSEA-FOR RESCUE AFTER 15 MIN Sitagliptin Phosphate 25 mg 10/14/19 07:00 10/14/19 06:16 Januvia - PO 25 mg DAILY@0700 MAT Administration Home Medications Medication Instructions Recorded Amlodipine Besylate [Norvasc -] 10 mg PO DAILY 09/27/19 Irbesartan [Avapro] 300 mg PO DAILY 09/27/19 metFORMIN HCL [Metformin HCl] 850 mg PO DAILY 09/27/19 Microbiology 09/25/19 01:00 Urine - Urine Clean Catch Urine Culture - Final NO GROWTH OBTAINED ASSESSMENT AND PLAN: This patient is a 69yom with PMhx of HTN, T2DM , cardiomyopathy, and possible CKD , who presented with LE edema and was found to have severe diabetic nephropathy and hyperkalemia requiring HD. # ESRD due to having diabetic nephropathy on HD , POD#1 AVF s/p creation of left radial to cephalic vein fistula on 10/13/2019, pending HD center # S/p Hyperkalemia #Hx of HTN/ DM /chronic Anemia due to ESRD ,continue norvasc , ccb , coreg , and HZN ,SSI with coverage #s/p diastolic CHF. resolved.continue asa and statin ,coreg # hep B vaccine as out pt DVT Px: Heparin SQ
[2019-10-14] MEDS: ATORVASTATIN CA 10 MG TABLET (FP) PO SCH (22:06)
[2019-10-15] MEDS: INSULIN SLIDING SCALE (NOVOLOG) 1 VIAL SQ SCH ×4 (06:18→21:13)
[2019-10-15] MEDS: HEPARIN NA (PORCINE) 5,000 UNITS/ML 1ML VIAL SQ SCH ×3 (06:19→21:13)
[2019-10-15] MEDS: DOCUSATE SODIUM 100 MG CAPSULE (FP) PO SCH ×3 (06:19→21:13)
[2019-10-15] MEDS: CALCIUM ACETATE 667 MG CAPSULE (FP) PO SCH ×3 (08:27→17:23)
[2019-10-15 09:13] LABS: BASO % 0.8 % (0-2.0); EOS % 3.3 % (0-4.5); HEMATOCRIT 29.7 % (35.4-49); HEMOGLOBIN 9.6 GM/dL (11.7-16.9); LYMPH % 20.9 % (8-40); MCH 29.6 pg (25.7-33.7); MCHC 32.2 g/dl (32.0-35.9); MEAN CELL VOLUME 91.8 fl (80-96); MEAN PLT VOLUME 9.2 fl (7.5-11.1); MONO % 14.2 % (3.8-10.2); NEUT % 60.8 % (42.8-82.8); PLATELET COUNT 156 K/MM3 (134-434); RBC 3.24 M/mm3 (4.00-5.60); WHITE BLOOD COUNT 5.1 K/mm3 (4.0-10.0)
[2019-10-15 09:36] LABS: BLOOD UREA NITROGEN 40.7 mg/dL (7-18); CALCIUM 8.4 mg/dL (8.5-10.1); CREATININE 5.7 mg/dL (0.55-1.3); POTASSIUM 3.7 mmol/L (3.5-5.1)
[2019-10-15] MEDS: amLODIPine BESYLATE 5 MG TABLET (FP) PO SCH (10:17)
[2019-10-15] MEDS: hydrALAZINE HCL 50 MG TABLET (FP) PO SCH ×2 (10:17→21:12)
[2019-10-15] MEDS: POLYETHYLENE GLYCOL 3350 119 GM BTL PO SCH ×2 (10:18→21:14)
[2019-10-15] MEDS: ASPIRIN COATED 81 MG TABLET.EC PO SCH (10:18)
[2019-10-15] MEDS: CARVEDILOL 12.5 MG TABLET (FP) PO SCH ×2 (10:18→21:12)
[2019-10-15] MEDS ORDERED: INSULIN (NOVOLOG) ASPART 100 UNITS/ML 10ML VIAL ONE (12:07)
--- NOTE | 2019-10-15 14:42 | PN ---
Progress Note (short form) - Note Progress Note: Comfortable, NAD Vital Signs Temperature 98.6 F 10/15/19 05:00 Pulse Rate 71 10/15/19 09:00 Respiratory Rate 18 10/15/19 09:00 Blood Pressure 155/64 10/15/19 09:00 O2 Sat by Pulse Oximetry (%) 100 10/15/19 05:00 GENERAL: The patient is awake, alert, and fully oriented, in no acute distress. HEAD: Normal with no signs of trauma. EYES: PERRL, extraocular movements intact, sclera anicteric, conjunctiva clear. ENT: Ears normal, oropharynx clear without exudates, moist mucous membranes. NECK: Trachea midline, full range of motion, supple. LUNGS: Breath sounds equal, clear to auscultation bilaterally, no wheezes, no crackles, no accessory muscle use. HEART: Regular rate and rhythm, S1, S2 without murmur, rub or gallop. ABDOMEN: Soft, nontender, nondistended, normoactive bowel sounds, no guarding, no rebound, no hepatosplenomegaly, no masses. EXTREMITIES: 2+ pulses, warm, well-perfused, left wrist avf NEUROLOGICAL: Cranial nerves II through XII grossly intact. Normal speech, gait not observed. PSYCH: Normal mood, normal affect. SKIN: Warm, dry, normal turgor, no rashes or lesions noted CBCD WBC 5.1 K/mm3 (4.0-10.0) 10/15/19 07:42 RBC 3.24 M/mm3 (4.00-5.60) L 10/15/19 07:42 Hgb 9.6 GM/dL (11.7-16.9) L 10/15/19 07:42 Hct 29.7 % (35.4-49) L 10/15/19 07:42 MCV 91.8 fl (80-96) 10/15/19 07:42 MCHC 32.2 g/dl (32.0-35.9) 10/15/19 07:42 RDW 16.0 % (11.9-15.9) H 10/15/19 07:42 Plt Count 156 K/MM3 (134-434) D 10/15/19 07:42 MPV 9.2 fl (7.5-11.1) 10/15/19 07:42 CMP Sodium 140 mmol/L (136-145) 10/15/19 07:42 Potassium 3.7 mmol/L (3.5-5.1) 10/15/19 07:42 Chloride 102 mmol/L (98-107) 10/15/19 07:42 Carbon Dioxide 29 mmol/L (21-32) 10/15/19 07:42 Anion Gap 9 MMOL/L (8-16) 10/15/19 07:42 BUN 40.7 mg/dL (7-18) H 10/15/19 07:42 Creatinine 5.7 mg/dL (0.55-1.3) H 10/15/19 07:42 Random Glucose 150 mg/dL (74-106) H 10/15/19 07:42 Calcium 8.4 mg/dL (8.5-10.1) L 10/15/19 07:42 Total Bilirubin 0.5 mg/dL (0.2-1) 10/09/19 07:10 AST 36 U/L (15-37) 10/09/19 07:10 ALT 65 U/L (13-61) H 10/09/19 07:10 Alkaline Phosphatase 68 U/L (45-117) 10/09/19 07:10 Total Protein 6.3 g/dl (6.4-8.2) L 10/09/19 07:10 Albumin 3.0 g/dl (3.4-5.0) L 10/09/19 07:10 CARDIAC ENZYMES Creatine Kinase 418 U/L (26-308) H 09/29/19 06:05 Troponin I 0.07 ng/ml (0.00-0.05) H 09/29/19 06:05 Current Medications Generic Name Dose Route Start Last Admin Trade Name Freq PRN Reason Stop Dose Admin Amlodipine Besylate 10 mg 10/14/19 10:00 10/15/19 10:17 Norvasc - PO 10 mg DAILY MAT Administration Aspirin 81 mg 10/14/19 10:00 10/15/19 10:18 Ecotrin - PO 81 mg DAILY MAT Administration Atorvastatin Calcium 10 mg 10/13/19 22:00 10/14/19 22:06 Lipitor - PO 10 mg HS MAT Administration Calcium Acetate 667 mg 10/14/19 08:00 10/15/19 12:20 Phoslo - PO 667 mg TIDCM MAT Administration Carvedilol 12.5 mg 10/13/19 22:00 10/15/19 10:18 Coreg - PO 12.5 mg BID MAT Administration Docusate Sodium 100 mg 10/13/19 22:00 10/15/19 06:19 Colace - PO 100 mg TID MAT Administration Fentanyl 50 mcg 10/13/19 18:10 10/13/19 18:30 Sublimaze Injection - IVPUSH 50 mcg [id number] PRN Administration PAIN-PACU ORDER X 4 DOSES ONLY Heparin Sodium (Porcine) 5,000 unit 10/13/19 22:00 10/15/19 06:19 Heparin - SQ 5,000 unit TID MAT Administration Hydralazine HCl 50 mg 10/13/19 22:00 10/15/19 10:17 Apresoline - PO 50 mg BID MAT Administration Insulin Aspart 1 vial 10/13/19 22:00 10/15/19 12:20 Novolog Vial Sliding Scale - SQ 6 units ACHS MAT Administration Protocol Ondansetron HCl 4 mg 10/13/19 18:10 Zofran Injection IVPUSH Q6H PRN NAUSEA AND/OR VOMITING Polyethylene Glycol 17 gm 10/13/19 22:00 10/15/19 10:18 Miralax (For Daily Use) - PO 17 gm BID MAT Administration Promethazine HCl 12.5 mg 10/13/19 18:10 Phenergan Injection - IVPUSH Q6H PRN NAUSEA-FOR RESCUE AFTER 15 MIN Sitagliptin Phosphate 25 mg 10/14/19 07:00 10/15/19 06:19 Januvia - PO 25 mg DAILY@0700 MAT Administration Home Medications Medication Instructions Recorded Amlodipine Besylate [Norvasc -] 10 mg PO DAILY 09/27/19 Irbesartan [Avapro] 300 mg PO DAILY 09/27/19 metFORMIN HCL [Metformin HCl] 850 mg PO DAILY 09/27/19 Microbiology 09/25/19 01:00 Urine - Urine Clean Catch Urine Culture - Final NO GROWTH OBTAINED Microbiology 09/25/19 01:00 Urine - Urine Clean Catch Urine Culture - Final NO GROWTH OBTAINED ASSESSMENT AND PLAN: This patient is a 69yom with PMhx of HTN, T2DM , cardiomyopathy, and possible CKD , who presented with LE edema and was found to have severe diabetic nephropathy and hyperkalemia requiring HD. # ESRD due to having diabetic nephropathy on HD , POD#2 AVF of left wrist s/p creation of left radial to cephalic vein fistula on 10/13/2019, pending HD center # S/p Hyperkalemia #Hx of HTN/ DM /chronic Anemia due to ESRD ,continue norvasc , ccb , coreg , and HZN ,SSI with coverage #s/p diastolic CHF. resolved.continue asa and statin ,coreg # hep B vaccine as out pt DVT Px: Heparin SQ Visit type - Emergency Visit Emergency Visit: Yes ED Registration Date: 09/25/19 Care time: The patient presented to the Emergency Department on the above date and was hospitalized for further evaluation of their emergent condition. - New Patient This patient is new to me today: No - Critical Care Critical Care patient: No - Discharge Referral Referred to [facility] Med P.C.: No - Medication Review Med list reviewed for High Risk Meds patients 65 and older: Yes
[2019-10-15] MEDS: ATORVASTATIN CA 10 MG TABLET (FP) PO SCH (21:12)
[2019-10-16] MEDS: DOCUSATE SODIUM 100 MG CAPSULE (FP) PO SCH ×3 (06:15→22:48)
[2019-10-16] MEDS: HEPARIN NA (PORCINE) 5,000 UNITS/ML 1ML VIAL SQ SCH ×3 (06:15→22:48)
[2019-10-16] MEDS: INSULIN SLIDING SCALE (NOVOLOG) 1 VIAL SQ SCH ×4 (06:22→22:48)
[2019-10-16] MEDS: CALCIUM ACETATE 667 MG CAPSULE (FP) PO SCH ×3 (08:19→16:51)
[2019-10-16] MEDS: amLODIPine BESYLATE 5 MG TABLET (FP) PO SCH (10:18)
[2019-10-16] MEDS: ASPIRIN COATED 81 MG TABLET.EC PO SCH (10:18)
[2019-10-16] MEDS: hydrALAZINE HCL 50 MG TABLET (FP) PO SCH ×2 (10:18→22:48)
[2019-10-16] MEDS: CARVEDILOL 12.5 MG TABLET (FP) PO SCH ×2 (10:18→22:48)
[2019-10-16] MEDS: POLYETHYLENE GLYCOL 3350 119 GM BTL PO SCH ×2 (10:21→22:48)
[2019-10-16 10:48] LABS: BASO % 0.8 % (0-2.0); HEMATOCRIT 29.6 % (35.4-49); HEMOGLOBIN 9.6 GM/dL (11.7-16.9); LYMPH % 20.3 % (8-40); MCH 29.3 pg (25.7-33.7); MCHC 32.4 g/dl (32.0-35.9); MEAN CELL VOLUME 90.5 fl (80-96); MONO % 12.7 % (3.8-10.2); NEUT % 61.2 % (42.8-82.8); PLATELET COUNT 174 K/MM3 (134-434); RBC 3.27 M/mm3 (4.00-5.60); RDW 16.3 % (11.9-15.9); WHITE BLOOD COUNT 5.2 K/mm3 (4.0-10.0)
[2019-10-16 11:08] LABS: MAGNESIUM 2.2 mg/dL (1.8-2.4); PHOSPHOROUS 4.7 mg/dL (2.5-4.9)
--- NOTE | 2019-10-16 13:00 | PN ---
Physical Exam: SUBJECTIVE: Patient seen and examined this morning, complained of mild CVA tenderness and pain at his fistula sight OBJECTIVE: Vital Signs Period Temp Pulse Resp BP Sys/Lopes Pulse Ox Last 24 Hr 98.7 F-98.9 F 68-76 18-20 143-152/61-65 96-98 GENERAL: The patient is awake, alert, and fully oriented, in no acute distress. HEAD: Normal with no signs of trauma. EYES: PERRL, extraocular movements intact NECK: Trachea midline, full range of motion, supple. LUNGS: Breath sounds equal, clear to auscultation bilaterally, no wheezes, no crackles, no accessory muscle use. HEART: Regular rate and rhythm, S1, S2 without murmur, rub or gallop. ABDOMEN: R sided CVA tenderness. Soft, nontender, nondistended, normoactive bowel sounds. EXTREMITIES: Left sided AVF for Dialysis, site is painful to touch. 2+ pulses, warm, well-perfused, no edema. NEUROLOGICAL: Normal speech, gait not observed. PSYCH: Normal mood, normal affect. SKIN: Warm, dry, normal turgor, no rashes or lesions noted Laboratory Results - last 24 hr CBC, BMP 10/16/19 10:06 10/15/19 07:42 Active Medications Generic Name Dose Route Start Last Admin Trade Name Los PRN Reason Stop Dose Admin Amlodipine Besylate 10 mg 10/14/19 10:00 10/16/19 10:18 Norvasc - PO 10 mg DAILY MAT Administration Aspirin 81 mg 10/14/19 10:00 10/16/19 10:18 Ecotrin - PO 81 mg DAILY MAT Administration Atorvastatin Calcium 10 mg 10/13/19 22:00 10/15/19 21:12 Lipitor - PO 10 mg HS MAT Administration Calcium Acetate 667 mg 10/14/19 08:00 10/16/19 11:53 Phoslo - PO 667 mg TIDCM MAT Administration Carvedilol 12.5 mg 10/13/19 22:00 10/16/19 10:18 Coreg - PO 12.5 mg BID MAT Administration Docusate Sodium 100 mg 10/13/19 22:00 10/16/19 06:15 Colace - PO 100 mg TID MAT Administration Fentanyl 50 mcg 10/13/19 18:10 10/13/19 18:30 Sublimaze Injection - IVPUSH 50 mcg [id number] PRN Administration PAIN-PACU ORDER X 4 DOSES ONLY Heparin Sodium (Porcine) 5,000 unit 10/13/19 22:00 10/16/19 06:15 Heparin - SQ 5,000 unit TID MAT Administration Hydralazine HCl 50 mg 10/13/19 22:00 10/16/19 10:18 Apresoline - PO 50 mg BID MAT Administration Insulin Aspart 1 vial 10/13/19 22:00 10/16/19 11:27 Novolog Vial Sliding Scale - SQ 2 units ACHS MAT Administration Protocol Ondansetron HCl 4 mg 10/13/19 18:10 Zofran Injection IVPUSH Q6H PRN NAUSEA AND/OR VOMITING Polyethylene Glycol 17 gm 10/13/19 22:00 10/16/19 10:21 Miralax (For Daily Use) - PO 17 gm BID MAT Administration Promethazine HCl 12.5 mg 10/13/19 18:10 Phenergan Injection - IVPUSH Q6H PRN NAUSEA-FOR RESCUE AFTER 15 MIN Sitagliptin Phosphate 25 mg 10/14/19 07:00 10/16/19 06:15 Januvia - PO 25 mg DAILY@0700 MAT Administration ASSESSMENT/PLAN: 69 yo M citizen of , currently visiting his nephew and [place] the [place], with PMHx of hypertension, non-insulin dependent Diabetes Mellitus, Cardiomyopathy w/ preserved EF, and CKD, presented to the ED with SoB, syncope, LE edema and was noted to have severe diabetic nephropathy and hyperkalemia requiring HD. Permacath placement was performed, and dialysis acheived. ESRD likely secondary to severe untreated diabetic nephropathy -AVF Placed on 10/12 -(10/15): site is tender to palpation, will continue to assess -Permacath remains in place -Ptn retains ability to urinate. Chronic Anemia likely 2/2 CKD -Monitor CBC -Continue Epo Alpha Acute on Likely Chronic Diastolic CHF (Poor Medical Treatment/Records, as ptn was previously treated in ) -ECHO: EF: 60-65% -LA mildy dilated Hx of HTN -BP elevated, consider increasing Dosage/frequency -Continue Amlodine -Continue Coreg -Continue Hydralazine -Continue ASA DM -Previously on Metformin, will DC on discharge 2/2 CKD and risk of LA -Januvia 25mg qdaily -Atorvastatin 2/2 DM and Cardiac Risk Factor Equivalent -ISS w/ BGM Hypocalcemia 2/2 ESRD -Continue Phoslo Social Work -Social Work Consulted: Working with medicare -Monitor immigration status and DC planning -Cleared for DC by Vascular per their note. FEN Fluids: No standing fluids, limit excessive fluid intake Electrolytes: Follow CMP/BMP Nutrition: Renal Diet Dispo: Continue med/surg management. FU social work w/ goal of outpatient hemodialysis Visit type - Emergency Visit Emergency Visit: No - New Patient This patient is new to me today: No - Critical Care Critical Care patient: No - Discharge Referral Referred to [facility] Med P.C.: No - Medication Review Med list reviewed for High Risk Meds patients 65 and older: Yes ATTENDING PHYSICIAN STATEMENT I saw and evaluated the patient. I reviewed the resident's note and discussed the case with the resident. I agree with the resident's findings and plan as documented. SUBJECTIVE: OBJECTIVE: ASSESSMENT AND PLAN:
--- NOTE | 2019-10-16 16:28 | PN ---
Teaching Attending Note Name of Resident: Yan Celis ATTENDING PHYSICIAN STATEMENT I saw and evaluated the patient. I reviewed the resident's note and discussed the case with the resident. I agree with the resident's findings and plan as documented. SUBJECTIVE: no new event overnight OBJECTIVE: Vital Signs Temperature 97.3 F L 10/16/19 14:00 Pulse Rate 66 10/16/19 14:00 Respiratory Rate 20 10/16/19 14:00 Blood Pressure 138/73 10/16/19 14:00 O2 Sat by Pulse Oximetry (%) 98 10/16/19 14:00 PE; per resident's note CBCD WBC 5.2 K/mm3 (4.0-10.0) 10/16/19 10:06 RBC 3.27 M/mm3 (4.00-5.60) L 10/16/19 10:06 Hgb 9.6 GM/dL (11.7-16.9) L 10/16/19 10:06 Hct 29.6 % (35.4-49) L 10/16/19 10:06 MCV 90.5 fl (80-96) 10/16/19 10:06 MCHC 32.4 g/dl (32.0-35.9) 10/16/19 10:06 RDW 16.3 % (11.9-15.9) H 10/16/19 10:06 Plt Count 174 K/MM3 (134-434) 10/16/19 10:06 MPV 9.0 fl (7.5-11.1) 10/16/19 10:06 CMP Sodium 140 mmol/L (136-145) 10/15/19 07:42 Potassium 3.7 mmol/L (3.5-5.1) 10/15/19 07:42 Chloride 102 mmol/L (98-107) 10/15/19 07:42 Carbon Dioxide 29 mmol/L (21-32) 10/15/19 07:42 Anion Gap 9 MMOL/L (8-16) 10/15/19 07:42 BUN 40.7 mg/dL (7-18) H 10/15/19 07:42 Creatinine 5.7 mg/dL (0.55-1.3) H 10/15/19 07:42 Random Glucose 150 mg/dL (74-106) H 10/15/19 07:42 Calcium 8.4 mg/dL (8.5-10.1) L 10/15/19 07:42 Total Bilirubin 0.5 mg/dL (0.2-1) 10/09/19 07:10 AST 36 U/L (15-37) 10/09/19 07:10 ALT 65 U/L (13-61) H 10/09/19 07:10 Alkaline Phosphatase 68 U/L (45-117) 10/09/19 07:10 Total Protein 6.3 g/dl (6.4-8.2) L 10/09/19 07:10 Albumin 3.0 g/dl (3.4-5.0) L 10/09/19 07:10 CARDIAC ENZYMES Creatine Kinase 418 U/L (26-308) H 09/29/19 06:05 Troponin I 0.07 ng/ml (0.00-0.05) H 09/29/19 06:05 Current Medications Generic Name Dose Route Start Last Admin Trade Name Freq PRN Reason Stop Dose Admin Amlodipine Besylate 10 mg 10/14/19 10:00 10/16/19 10:18 Norvasc - PO 10 mg DAILY MAT Administration Aspirin 81 mg 10/14/19 10:00 10/16/19 10:18 Ecotrin - PO 81 mg DAILY MAT Administration Atorvastatin Calcium 10 mg 10/13/19 22:00 10/15/19 21:12 Lipitor - PO 10 mg HS MAT Administration Calcium Acetate 667 mg 10/14/19 08:00 10/16/19 11:53 Phoslo - PO 667 mg TIDCM MAT Administration Carvedilol 12.5 mg 10/13/19 22:00 10/16/19 10:18 Coreg - PO 12.5 mg BID MAT Administration Docusate Sodium 100 mg 10/13/19 22:00 10/16/19 13:31 Colace - PO 100 mg TID MAT Administration Fentanyl 50 mcg 10/13/19 18:10 10/13/19 18:30 Sublimaze Injection - IVPUSH 50 mcg [id number] PRN Administration PAIN-PACU ORDER X 4 DOSES ONLY Heparin Sodium (Porcine) 5,000 unit 10/13/19 22:00 10/16/19 13:31 Heparin - SQ 5,000 unit TID MAT Administration Hydralazine HCl 50 mg 10/13/19 22:00 10/16/19 10:18 Apresoline - PO 50 mg BID MAT Administration Insulin Aspart 1 vial 10/13/19 22:00 10/16/19 16:24 Novolog Vial Sliding Scale - SQ 4 units ACHS MAT Administration Protocol Ondansetron HCl 4 mg 10/13/19 18:10 Zofran Injection IVPUSH Q6H PRN NAUSEA AND/OR VOMITING Polyethylene Glycol 17 gm 10/13/19 22:00 10/16/19 10:21 Miralax (For Daily Use) - PO 17 gm BID MAT Administration Promethazine HCl 12.5 mg 10/13/19 18:10 Phenergan Injection - IVPUSH Q6H PRN NAUSEA-FOR RESCUE AFTER 15 MIN Sitagliptin Phosphate 25 mg 10/14/19 07:00 10/16/19 06:15 Januvia - PO 25 mg DAILY@0700 MAT Administration Home Medications Medication Instructions Recorded Amlodipine Besylate [Norvasc -] 10 mg PO DAILY 09/27/19 Irbesartan [Avapro] 300 mg PO DAILY 09/27/19 metFORMIN HCL [Metformin HCl] 850 mg PO DAILY 09/27/19 09/25/19 01:00 Urine - Urine Clean Catch Urine Culture - Final NO GROWTH OBTAINED ASSESSMENT AND PLAN: This patient is a 69yom with PMhx of HTN, T2DM , cardiomyopathy, and possible CKD , who presented with LE edema and was found to have severe diabetic nephropathy and hyperkalemia requiring HD. # ESRD due to having diabetic nephropathy on HD , POD#3 AVF of left wrist s/p creation of left radial to cephalic vein fistula on 10/13/2019, pending HD center # S/p Hyperkalemia #Hx of HTN/ DM /chronic Anemia due to ESRD ,continue norvasc , ccb , coreg , and HZN ,SSI with coverage #s/p diastolic CHF. resolved.continue asa and statin ,coreg # hep B vaccine as out pt DVT Px: Heparin SQ no new changes
[2019-10-16] MEDS: ATORVASTATIN CA 10 MG TABLET (FP) PO SCH (22:48)
[2019-10-17] MEDS: INSULIN SLIDING SCALE (NOVOLOG) 1 VIAL SQ SCH ×4 (06:25→21:14)
[2019-10-17] MEDS: DOCUSATE SODIUM 100 MG CAPSULE (FP) PO SCH ×3 (06:26→21:15)
[2019-10-17] MEDS: HEPARIN NA (PORCINE) 5,000 UNITS/ML 1ML VIAL SQ SCH ×3 (06:26→21:15)
[2019-10-17] MEDS: CALCIUM ACETATE 667 MG CAPSULE (FP) PO SCH ×3 (08:41→17:01)
[2019-10-17 08:59] LABS: BASO % 0.7 % (0-2.0); EOS % 5.2 % (0-4.5); HEMATOCRIT 27.8 % (35.4-49); HEMOGLOBIN 9.1 GM/dL (11.7-16.9); LYMPH % 18.2 % (8-40); MCH 29.5 pg (25.7-33.7); MCHC 32.6 g/dl (32.0-35.9); MEAN CELL VOLUME 90.4 fl (80-96); MEAN PLT VOLUME 9.2 fl (7.5-11.1); NEUT % 64.9 % (42.8-82.8); PLATELET COUNT 172 K/MM3 (134-434); RBC 3.07 M/mm3 (4.00-5.60); WHITE BLOOD COUNT 5.5 K/mm3 (4.0-10.0)
[2019-10-17 09:26] LABS: BLOOD UREA NITROGEN 61.4 mg/dL (7-18); POTASSIUM 4.2 mmol/L (3.5-5.1)
[2019-10-17 09:28] LABS: CALCIUM 7.5 mg/dL (8.5-10.1)
[2019-10-17 10:01] LABS: CREATININE 8.2 mg/dL (0.55-1.3)
[2019-10-17 10:51] LABS: HEMATOCRIT 27.3 % (35.4-49); HEMOGLOBIN 8.8 GM/dL (11.7-16.9); MCH 29.5 pg (25.7-33.7); MCHC 32.3 g/dl (32.0-35.9); MEAN CELL VOLUME 91.4 fl (80-96); MEAN PLT VOLUME 9.3 fl (7.5-11.1); PLATELET COUNT 162 K/MM3 (134-434); RBC 2.99 M/mm3 (4.00-5.60); RDW 16.2 % (11.9-15.9); WHITE BLOOD COUNT 5.4 K/mm3 (4.0-10.0)
[2019-10-17] MEDS ORDERED: SODIUM CHLORIDE 250 ML IV PRN (11:00)
[2019-10-17 11:18] LABS: BLOOD UREA NITROGEN 62.3 mg/dL (7-18); CALCIUM 8.4 mg/dL (8.5-10.1); POTASSIUM 4.1 mmol/L (3.5-5.1)
[2019-10-17 11:45] LABS: CREATININE 8.1 mg/dL (0.55-1.3)
[2019-10-17] MEDS: CARVEDILOL 12.5 MG TABLET (FP) PO SCH ×2 (12:00→21:15)
[2019-10-17] MEDS: hydrALAZINE HCL 50 MG TABLET (FP) PO SCH ×2 (12:00→21:15)
[2019-10-17] MEDS: POLYETHYLENE GLYCOL 3350 119 GM BTL PO SCH ×2 (12:00→21:15)
[2019-10-17] MEDS: amLODIPine BESYLATE 5 MG TABLET (FP) PO SCH (12:01)
[2019-10-17] MEDS: ASPIRIN COATED 81 MG TABLET.EC PO SCH (12:01)
--- NOTE | 2019-10-17 14:00 | PN ---
Physical Exam: SUBJECTIVE: Patient seen and examined today, endorses no complaints. Awaiting social work. Will go for dialysis today. OBJECTIVE: Vital Signs Period Temp Pulse Resp BP Sys/Lopes Pulse Ox Last 24 Hr 98.5 F-99.2 F 66-80 18-20 132-166/49-88 93-96 GENERAL: The patient is awake, alert, and fully oriented, in no acute distress. HEAD: Normal with no signs of trauma. EYES: PERRL, extraocular movements intact NECK: Trachea midline, full range of motion, supple. LUNGS: Breath sounds equal, clear to auscultation bilaterally, no wheezes, no crackles, no accessory muscle use. HEART: Regular rate and rhythm, S1, S2 without murmur, rub or gallop. ABDOMEN: R sided CVA tenderness. Soft, nontender, nondistended, normoactive bowel sounds. EXTREMITIES: Left sided AVF for Dialysis, site is painful to touch. 2+ pulses, warm, well-perfused, no edema. NEUROLOGICAL: Normal speech, gait not observed. PSYCH: Normal mood, normal affect. SKIN: Warm, dry, normal turgor, no rashes or lesions noted Laboratory Results - last 24 hr CBC, BMP 10/17/19 08:35 10/17/19 08:35 Active Medications Generic Name Dose Route Start Last Admin Trade Name Vinhq PRN Reason Stop Dose Admin Amlodipine Besylate 10 mg 10/14/19 10:00 10/17/19 12:01 Norvasc - PO 10 mg DAILY MAT Administration Aspirin 81 mg 10/14/19 10:00 10/17/19 12:01 Ecotrin - PO 81 mg DAILY MAT Administration Atorvastatin Calcium 10 mg 10/13/19 22:00 10/16/19 22:48 Lipitor - PO 10 mg HS MAT Administration Calcium Acetate 667 mg 10/14/19 08:00 10/17/19 12:01 Phoslo - PO 667 mg TIDCM MAT Administration Carvedilol 12.5 mg 10/13/19 22:00 10/17/19 12:00 Coreg - PO 12.5 mg BID MAT Administration Docusate Sodium 100 mg 10/13/19 22:00 10/17/19 06:26 Colace - PO 100 mg TID MAT Administration Fentanyl 50 mcg 10/13/19 18:10 10/13/19 18:30 Sublimaze Injection - IVPUSH 50 mcg [id number] PRN Administration PAIN-PACU ORDER X 4 DOSES ONLY Heparin Sodium (Porcine) 5,000 unit 10/13/19 22:00 10/17/19 06:26 Heparin - SQ 5,000 unit TID MAT Administration Hydralazine HCl 50 mg 10/13/19 22:00 10/17/19 12:00 Apresoline - PO 50 mg BID MAT Administration Insulin Aspart 1 vial 10/13/19 22:00 10/17/19 11:59 Novolog Vial Sliding Scale - SQ Not Given ACHS [facility] Protocol Ondansetron HCl 4 mg 10/13/19 18:10 Zofran Injection IVPUSH Q6H PRN NAUSEA AND/OR VOMITING Polyethylene Glycol 17 gm 10/13/19 22:00 10/17/19 12:00 Miralax (For Daily Use) - PO 17 gm BID MAT Administration Promethazine HCl 12.5 mg 10/13/19 18:10 Phenergan Injection - IVPUSH Q6H PRN NAUSEA-FOR RESCUE AFTER 15 MIN Sitagliptin Phosphate 25 mg 10/14/19 07:00 10/17/19 06:26 Januvia - PO 25 mg DAILY@0700 MAT Administration ASSESSMENT/PLAN: 69 yo M citizen of , currently visiting his nephew and undocumented in the [place], with PMHx of hypertension, non-insulin dependent Diabetes Mellitus, Cardiomyopathy w/ preserved EF, and CKD, presented to the ED with SoB, syncope, LE edema and was noted to have severe diabetic nephropathy and hyperkalemia requiring HD. Permacath placement was performed, and dialysis acheived, subsequently, a left AVF was placed by the Vascular Team. ESRD likely secondary to severe untreated diabetic nephropathy -AVF Placed on 10/12 -(10/15): site is tender to palpation, will continue to assess -Permacath remains in place -Ptn retains ability to urinate. Chronic Anemia likely 2/2 CKD -Monitor CBC -Continue Epo Alpha Acute on Likely Chronic Diastolic CHF (Poor Medical Treatment/Records, as ptn was previously treated in ) -ECHO: EF: 60-65% -LA mildy dilated Hx of HTN -Continue Amlodine -Continue Coreg -Continue Hydralazine -Continue ASA DM -Previously on Metformin, will DC on discharge 2/2 CKD and risk of LA -Januvia 25mg qdaily -Atorvastatin 2/2 DM and Cardiac Risk Factor Equivalent -ISS w/ BGM Hypocalcemia 2/2 ESRD -Continue Phoslo Social Work -Social Work Consulted: Working with medicare -Monitor immigration status and DC planning -Cleared for DC by Vascular per their note. FEN Fluids: No standing fluids, limit excessive fluid intake Electrolytes: Follow CMP/BMP Nutrition: Renal Diet Dispo: Continue med/surg management. FU social work w/ goal of outpatient hemodialysis Visit type - Emergency Visit Emergency Visit: No - New Patient This patient is new to me today: No - Critical Care Critical Care patient: No - Discharge Referral Referred to [facility] Med P.C.: No - Medication Review Med list reviewed for High Risk Meds patients 65 and older: Yes ATTENDING PHYSICIAN STATEMENT I saw and evaluated the patient. I reviewed the resident's note and discussed the case with the resident. I agree with the resident's findings and plan as documented. SUBJECTIVE: OBJECTIVE: ASSESSMENT AND PLAN:
--- NOTE | 2019-10-17 16:49 | PN ---
Teaching Attending Note Name of Resident: Yan Celis ATTENDING PHYSICIAN STATEMENT I saw and evaluated the patient. I reviewed the resident's note and discussed the case with the resident. I agree with the resident's findings and plan as documented. SUBJECTIVE: comfortable no new changes OBJECTIVE: Vital Signs Temperature 98.8 F 10/17/19 14:55 Pulse Rate 69 10/17/19 14:55 Respiratory Rate 20 10/17/19 14:55 Blood Pressure 126/56 L 10/17/19 14:55 O2 Sat by Pulse Oximetry (%) 96 10/17/19 12:00 PE;per resident's note CBCD WBC 5.4 K/mm3 (4.0-10.0) 10/17/19 08:35 RBC 2.99 M/mm3 (4.00-5.60) L 10/17/19 08:35 Hgb 8.8 GM/dL (11.7-16.9) L 10/17/19 08:35 Hct 27.3 % (35.4-49) L 10/17/19 08:35 MCV 91.4 fl (80-96) 10/17/19 08:35 MCHC 32.3 g/dl (32.0-35.9) 10/17/19 08:35 RDW 16.2 % (11.9-15.9) H 10/17/19 08:35 Plt Count 162 K/MM3 (134-434) 10/17/19 08:35 MPV 9.3 fl (7.5-11.1) 10/17/19 08:35 CMP Sodium 138 mmol/L (136-145) 10/17/19 08:35 Potassium 4.1 mmol/L (3.5-5.1) 10/17/19 08:35 Chloride 103 mmol/L (98-107) 10/17/19 08:35 Carbon Dioxide 28 mmol/L (21-32) 10/17/19 08:35 Anion Gap 7 MMOL/L (8-16) L 10/17/19 08:35 BUN 62.3 mg/dL (7-18) H 10/17/19 08:35 Creatinine 8.1 mg/dL (0.55-1.3) H* 10/17/19 08:35 Random Glucose 214 mg/dL (74-106) H 10/17/19 08:35 Calcium 8.4 mg/dL (8.5-10.1) L 10/17/19 08:35 Total Bilirubin 0.5 mg/dL (0.2-1) 10/09/19 07:10 AST 36 U/L (15-37) 10/09/19 07:10 ALT 65 U/L (13-61) H 10/09/19 07:10 Alkaline Phosphatase 68 U/L (45-117) 10/09/19 07:10 Total Protein 6.3 g/dl (6.4-8.2) L 10/09/19 07:10 Albumin 3.0 g/dl (3.4-5.0) L 10/09/19 07:10 CARDIAC ENZYMES Creatine Kinase 418 U/L (26-308) H 09/29/19 06:05 Troponin I 0.07 ng/ml (0.00-0.05) H 09/29/19 06:05 Current Medications Generic Name Dose Route Start Last Admin Trade Name Freq PRN Reason Stop Dose Admin Amlodipine Besylate 10 mg 10/14/19 10:00 10/17/19 12:01 Norvasc - PO 10 mg DAILY MAT Administration Aspirin 81 mg 10/14/19 10:00 10/17/19 12:01 Ecotrin - PO 81 mg DAILY MAT Administration Atorvastatin Calcium 10 mg 10/13/19 22:00 10/16/19 22:48 Lipitor - PO 10 mg HS MAT Administration Calcium Acetate 667 mg 10/14/19 08:00 10/17/19 12:01 Phoslo - PO 667 mg TIDCM MAT Administration Carvedilol 12.5 mg 10/13/19 22:00 10/17/19 12:00 Coreg - PO 12.5 mg BID MAT Administration Docusate Sodium 100 mg 10/13/19 22:00 10/17/19 14:13 Colace - PO 100 mg TID MAT Administration Fentanyl 50 mcg 10/13/19 18:10 10/13/19 18:30 Sublimaze Injection - IVPUSH 50 mcg [id number] PRN Administration PAIN-PACU ORDER X 4 DOSES ONLY Heparin Sodium (Porcine) 5,000 unit 10/13/19 22:00 10/17/19 14:13 Heparin - SQ 5,000 unit TID MAT Administration Hydralazine HCl 50 mg 10/13/19 22:00 10/17/19 12:00 Apresoline - PO 50 mg BID MAT Administration Insulin Aspart 1 vial 10/13/19 22:00 10/17/19 11:59 Novolog Vial Sliding Scale - SQ Not Given ACHS [facility] Protocol Ondansetron HCl 4 mg 10/13/19 18:10 Zofran Injection IVPUSH Q6H PRN NAUSEA AND/OR VOMITING Polyethylene Glycol 17 gm 10/13/19 22:00 10/17/19 12:00 Miralax (For Daily Use) - PO 17 gm BID MAT Administration Promethazine HCl 12.5 mg 10/13/19 18:10 Phenergan Injection - IVPUSH Q6H PRN NAUSEA-FOR RESCUE AFTER 15 MIN Sitagliptin Phosphate 25 mg 10/14/19 07:00 10/17/19 06:26 Januvia - PO 25 mg DAILY@0700 MAT Administration Home Medications Medication Instructions Recorded Amlodipine Besylate [Norvasc -] 10 mg PO DAILY 09/27/19 Irbesartan [Avapro] 300 mg PO DAILY 09/27/19 metFORMIN HCL [Metformin HCl] 850 mg PO DAILY 09/27/19 Microbiology 09/25/19 01:00 Urine - Urine Clean Catch Urine Culture - Final NO GROWTH OBTAINED ASSESSMENT AND PLAN: This patient is a 69yom with PMhx of HTN, T2DM , cardiomyopathy, and possible CKD , who presented with LE edema and was found to have severe diabetic nephropathy and hyperkalemia requiring HD. # ESRD due to having diabetic nephropathy on HD , POD#3 AVF of left wrist s/p creation of left radial to cephalic vein fistula on 10/13/2019, pending HD center # S/p Hyperkalemia #Hx of HTN/ DM /chronic Anemia due to ESRD ,continue norvasc , ccb , coreg , and HZN ,SSI with coverage #s/p diastolic CHF. resolved.continue asa and statin ,coreg # hep B vaccine as out pt DVT Px: Heparin SQ no new changes , continue current care
--- NOTE | 2019-10-17 16:58 | PN ---
Progress Note, Physician History of Present Illness: Mr. Vuong is a 69 year old male ([facility]) with a significant past medical history of HTN, DM, CHF, and renal dysfunction, who presents to the ED with 4 months of bilateral LE edema. As per patient, he presented to the ED from the [facility] secondary to receiving inadequate care. Patient also endorses one month of intermittent shortness of breath, chest pain on exertion, bilateral kidney pain and 4 episodes of syncope last week, with head injury. Denies fever, chills, headache, nausea, vomiting, or urinary changes. - Current Medication List Current Medications: Active Medications Amlodipine Besylate (Norvasc -) 10 mg PO DAILY [facility] Last Admin: 10/17/19 12:01 Dose: 10 mg Documented by: Aspirin (Ecotrin -) 81 mg PO DAILY [facility] Last Admin: 10/17/19 12:01 Dose: 81 mg Documented by: Atorvastatin Calcium (Lipitor -) 10 mg PO HS [facility] Last Admin: 10/16/19 22:48 Dose: 10 mg Documented by: Calcium Acetate (Phoslo -) 667 mg PO TIDCM [facility] Last Admin: 10/17/19 12:01 Dose: 667 mg Documented by: Carvedilol (Coreg -) 12.5 mg PO BID [facility] Last Admin: 10/17/19 12:00 Dose: 12.5 mg Documented by: Docusate Sodium (Colace -) 100 mg PO TID [facility] Last Admin: 10/17/19 14:13 Dose: 100 mg Documented by: Fentanyl (Sublimaze Injection -) 50 mcg IVPUSH [id number] PRN PRN Reason: PAIN-PACU ORDER X 4 DOSES ONLY Last Admin: 10/13/19 18:30 Dose: 50 mcg Documented by: Heparin Sodium (Porcine) (Heparin -) 5,000 unit SQ TID [facility] Last Admin: 10/17/19 14:13 Dose: 5,000 unit Documented by: Hydralazine HCl (Apresoline -) 50 mg PO BID [facility] Last Admin: 10/17/19 12:00 Dose: 50 mg Documented by: Insulin Aspart (Novolog Vial Sliding Scale -) 1 vial SQ [facility]; Protocol Last Admin: 10/17/19 11:59 Dose: Not Given Documented by: Ondansetron HCl (Zofran Injection) 4 mg IVPUSH Q6H PRN PRN Reason: NAUSEA AND/OR VOMITING Polyethylene Glycol (Miralax (For Daily Use) -) 17 gm PO BID [facility] Last Admin: 10/17/19 12:00 Dose: 17 gm Documented by: Promethazine HCl (Phenergan Injection -) 12.5 mg IVPUSH Q6H PRN PRN Reason: NAUSEA-FOR RESCUE AFTER 15 MIN Sitagliptin Phosphate (Januvia -) 25 mg PO DAILY@0700 [facility] Last Admin: 10/17/19 06:26 Dose: 25 mg Documented by: - Objective Vital Signs: Vital Signs Temperature 98.8 F 10/17/19 14:55 Pulse Rate 69 10/17/19 14:55 Respiratory Rate 20 10/17/19 14:55 Blood Pressure 126/56 L 10/17/19 14:55 O2 Sat by Pulse Oximetry (%) 96 10/17/19 12:00 Eyes: Yes: WNL, Conjunctiva Clear, EOM Intact HENT: Yes: WNL, Atraumatic, Normocephalic Neck: Yes: WNL, Supple, Trachea Midline Cardiovascular: Yes: WNL, Regular Rate and Rhythm Respiratory: Yes: WNL, Regular, CTA Bilaterally Gastrointestinal: Yes: WNL, Normal Bowel Sounds Genitourinary: Yes: WNL Musculoskeletal: Yes: WNL Extremities: Yes: WNL Edema: No Integumentary: Yes: WNL Neurological: Yes: WNL, Alert, Oriented ...Motor Strength: WNL Psychiatric: Yes: WNL Labs: CBC, BMP 10/17/19 08:35 10/17/19 08:35 INR, PTT INR 1.03 (0.83-1.09) 09/25/19 00:09 Problem List - Problems (1) Diabetes Code(s): E11.9 - TYPE 2 DIABETES MELLITUS WITHOUT COMPLICATIONS (2) Hyperkalemia Code(s): E87.5 - HYPERKALEMIA (3) Hypertension Code(s): I10 - ESSENTIAL (PRIMARY) HYPERTENSION (4) Kidney failure Code(s): N19 - UNSPECIFIED KIDNEY FAILURE Qualifiers: Renal failure chronicity: acute on chronic Assessment/Plan ssessment/Plan ESRD; on hemodialysis Bilateral LE edema x several months Intermittent shortness of breath Syncope x 4 recently anemia severe hyperkalemia rhabdomyolysis HTN diastolic CHF elevated TNI; stress MIBI now shows small area of mildly intense inferior ischemia EKG: NSR; ? old septal infarct ECHO: normal LVEF; abnormal diastolic compliance; mild-moderate LVH; small eb cardial effusion stable s/p AV fistula Rec: Cardiacc gregory stable Cont HD
--- NOTE | 2019-10-17 18:28 | PN ---
Progress Note, Physician Chief Complaint: Renal failure History of Present Illness: Seen and examined at the bedside awake and alert has some brusing in AVF arm no sob, cp, fever, chills s/p dialysis earlier today - Current Medication List Current Medications: Active Medications Amlodipine Besylate (Norvasc -) 10 mg PO DAILY [facility] Last Admin: 10/17/19 12:01 Dose: 10 mg Documented by: Aspirin (Ecotrin -) 81 mg PO DAILY [facility] Last Admin: 10/17/19 12:01 Dose: 81 mg Documented by: Atorvastatin Calcium (Lipitor -) 10 mg PO HS [facility] Last Admin: 10/16/19 22:48 Dose: 10 mg Documented by: Calcium Acetate (Phoslo -) 667 mg PO TIDCM [facility] Last Admin: 10/17/19 17:01 Dose: 667 mg Documented by: Carvedilol (Coreg -) 12.5 mg PO BID [facility] Last Admin: 10/17/19 12:00 Dose: 12.5 mg Documented by: Docusate Sodium (Colace -) 100 mg PO TID [facility] Last Admin: 10/17/19 14:13 Dose: 100 mg Documented by: Fentanyl (Sublimaze Injection -) 50 mcg IVPUSH [id number] PRN PRN Reason: PAIN-PACU ORDER X 4 DOSES ONLY Last Admin: 10/13/19 18:30 Dose: 50 mcg Documented by: Heparin Sodium (Porcine) (Heparin -) 5,000 unit SQ TID [facility] Last Admin: 10/17/19 14:13 Dose: 5,000 unit Documented by: Hydralazine HCl (Apresoline -) 50 mg PO BID [facility] Last Admin: 10/17/19 12:00 Dose: 50 mg Documented by: Insulin Aspart (Novolog Vial Sliding Scale -) 1 vial SQ [facility]; Protocol Last Admin: 10/17/19 17:02 Dose: 2 units Documented by: Ondansetron HCl (Zofran Injection) 4 mg IVPUSH Q6H PRN PRN Reason: NAUSEA AND/OR VOMITING Polyethylene Glycol (Miralax (For Daily Use) -) 17 gm PO BID [facility] Last Admin: 10/17/19 12:00 Dose: 17 gm Documented by: Promethazine HCl (Phenergan Injection -) 12.5 mg IVPUSH Q6H PRN PRN Reason: NAUSEA-FOR RESCUE AFTER 15 MIN Sitagliptin Phosphate (Januvia -) 25 mg PO DAILY@0700 [facility] Last Admin: 10/17/19 06:26 Dose: 25 mg Documented by: - Objective Vital Signs: Vital Signs Temperature 98.8 F 10/17/19 14:55 Pulse Rate 69 10/17/19 14:55 Respiratory Rate 10/17/19 14:55 Blood Pressure 126/56 L 10/17/19 14:55 O2 Sat by Pulse Oximetry (%) 96 10/17/19 12:00 Constitutional: Yes: No Distress, Calm HENT: Yes: Atraumatic Neck: Yes: Supple Cardiovascular: Yes: Regular Rate and Rhythm Respiratory: Yes: Regular Gastrointestinal: Yes: Soft Extremities: Yes: Other (brusing in AVF arm) Edema: No Labs: CBC, BMP 10/17/19 08:35 10/17/19 08:35 INR, PTT INR 1.03 (0.83-1.09) 09/25/19 00:09 Assessment/Plan 69 year old male with history of hypertension, non-insulin dependent DM, cardiomyopathy, and possible CKD who came from the [place] and presented to the ED with complaints of leg swelling and syncope and found to have renal failure and hyperkalemia. 1. ESRD requiring dialysis secondary to severe diabetic nephropathy (biopsy proven) 2. Hyperkalemia now resolved 3. Volume overload 4. Metabolic acidosis 5. Anemia 6. Hypertension 7. DM not on insulin 9. Cardiomyopathy Tolerated dialysis well today, next planned dialysis on Thursday continue Hd 3x weekly for ESRD from diabetic nephropathy s/p AVF placement per vascular, will need vascular follow up access brusing in AVF arm. Still awaiting insurance authorization for outpatient dialysis placement. Renal diet Discharge once outpatient dialysis is secured. Thank you Luiz Galdamez DO
[2019-10-17] MEDS ORDERED: INSULIN (NOVOLOG) ASPART 100 UNITS/ML 10ML VIAL ONE (21:08)
[2019-10-17] MEDS: ATORVASTATIN CA 10 MG TABLET (FP) PO SCH (21:15)
[2019-10-18] MEDS: INSULIN SLIDING SCALE (NOVOLOG) 1 VIAL SQ SCH ×4 (06:12→21:54)
[2019-10-18] MEDS: HEPARIN NA (PORCINE) 5,000 UNITS/ML 1ML VIAL SQ SCH ×3 (06:14→21:48)
[2019-10-18] MEDS: DOCUSATE SODIUM 100 MG CAPSULE (FP) PO SCH ×3 (06:14→21:47)
[2019-10-18] MEDS ORDERED: INSULIN (NOVOLOG) ASPART 100 UNITS/ML 10ML VIAL ONE ×2 (07:44→21:24)
[2019-10-18] MEDS: CALCIUM ACETATE 667 MG CAPSULE (FP) PO SCH ×3 (07:48→16:54)
[2019-10-18 08:43] LABS: BASO % 0.5 % (0-2.0); EOS % 5.8 % (0-4.5); HEMATOCRIT 27.8 % (35.4-49); LYMPH % 17.1 % (8-40); MCH 29.3 pg (25.7-33.7); MCHC 32.4 g/dl (32.0-35.9); MEAN CELL VOLUME 90.4 fl (80-96); MONO % 13.1 % (3.8-10.2); NEUT % 63.5 % (42.8-82.8); PLATELET COUNT 165 K/MM3 (134-434); RBC 3.08 M/mm3 (4.00-5.60); RDW 15.9 % (11.9-15.9); WHITE BLOOD COUNT 4.8 K/mm3 (4.0-10.0)
[2019-10-18 09:08] LABS: CALCIUM 8.5 mg/dL (8.5-10.1); CREATININE 5.4 mg/dL (0.55-1.3); MAGNESIUM 2.4 mg/dL (1.8-2.4); PHOSPHOROUS 4.2 mg/dL (2.5-4.9); POTASSIUM 3.8 mmol/L (3.5-5.1)
[2019-10-18 09:13] LABS: BLOOD UREA NITROGEN 34.2 mg/dL (7-18)
[2019-10-18] MEDS: hydrALAZINE HCL 50 MG TABLET (FP) PO SCH ×2 (11:02→21:48)
[2019-10-18] MEDS: ASPIRIN COATED 81 MG TABLET.EC PO SCH (11:03)
[2019-10-18] MEDS: POLYETHYLENE GLYCOL 3350 119 GM BTL PO SCH ×2 (11:03→21:48)
[2019-10-18] MEDS: amLODIPine BESYLATE 5 MG TABLET (FP) PO SCH (11:03)
[2019-10-18] MEDS: CARVEDILOL 12.5 MG TABLET (FP) PO SCH ×2 (11:03→21:47)
--- NOTE | 2019-10-18 12:27 | OP ---
DATE OF OPERATION: PREOPERATIVE DIAGNOSIS: End-stage renal disease. POSTOPERATIVE DIAGNOSIS: End-stage renal disease. PROCEDURE: Creation of radial artery to cephalic vein fistula, left arm. SURGEON: Ronnie Vargas DO DESCRIPTION OF PROCEDURE: Patient was consented for the procedure understanding all risks, benefits, and alternatives. The patient was then brought to operating room and laid on the operating table in supine manner. The area of the left arm was prepped and draped in sterile surgical manner. Under ultrasound guidance, we were able to visualize the cephalic vein in the forearm and that was marked on the skin using skin marker above the wrist. We then marked the radial artery above the wrist using a skin marker. We then went ahead and made a 4-cm incision in between the radial artery and cephalic vein. Bovie electrocautery used to control hemostasis, and we were able to get down through all the subcutaneous tissue. We then went laterally and we were able to dissect out the cephalic vein within that same pocket and incision. We dissected the cephalic vein. All branches of the cephalic vein were ligated using 4-0 silk. We then went medially and went through the fascia and we were able to dissect out the radial artery. Radial artery was dissected anteriorly and posteriorly and vesseloops were placed proximally and distally. We then ligated the vein distally using 3-0 silk. We then went ahead and placed a 4-[place] feeding tube into the vein, and we were able to dilate up the vein appropriately and there was good drawback. We then transposed the vein over to the artery. We then used the Barger scissors and made a 7-mm venotomy on the vein. Intravenous heparin 5000 units were administered to the patient. After 3 minutes, we got distal and proximal control on the artery. We then used a 15 blade and made an arteriotomy extending it to 7-mm using Barger scissors, 6-0 Prolene stay sutures were placed on the artery. We then used 6-0 Prolene double-armed and went outside-in on the vein and inside-out on the artery and ran the stitch around to form anastomosis between the artery and the vein. Once completed, we opened the distal artery first then the proximal artery, and there was a good thrill in our AV fistula. We then went ahead and irrigated the wound copiously. Vicryl 3-0 was used and the subcutaneous tissue was approximated in an interrupted manner, and the skin was closed with 4-0 Biosyn in a subcuticular running fashion. Area was wet and dried. Steri-Strips, 4 x 4, and Tegaderm were placed. She tolerated the procedure with no complications. Patient was transferred to PACU in stable condition. RONNIE VARGAS DO NP/[id number]
--- NOTE | 2019-10-18 14:33 | PN ---
Teaching Attending Note Name of Resident: Maral Bledsoe ATTENDING PHYSICIAN STATEMENT I saw and evaluated the patient. I reviewed the resident's note and discussed the case with the resident. I agree with the resident's findings and plan as documented. SUBJECTIVE: Patient feels well, no complaints OBJECTIVE: Vital Signs Period Temp Pulse Resp BP Sys/Lopes Pulse Ox Last 24 Hr 98.4 F-98.8 F 67-72 17-20 126-149/52-75 93-98 As per residents note ASSESSMENT AND PLAN: This patient is a 69yom with PMhx of HTN, T2DM , cardiomyopathy, and possible CKD , who presented with LE edema and was found to have severe diabetic nephropathy and hyperkalemia requiring HD. ESRD on HD Awaiting HD placement AVF placed by vascular Sx. Continue home medications for chronic issues Patient medically stable for discharge. Space daily labs
--- NOTE | 2019-10-18 15:19 | PN ---
Progress Note, Physician History of Present Illness: Mr. Vuong is a 69 year old male ([facility]) with a significant past medical history of HTN, DM, CHF, and renal dysfunction, who presents to the ED with 4 months of bilateral LE edema. As per patient, he presented to the ED from the [facility] secondary to receiving inadequate care. Patient also endorses one month of intermittent shortness of breath, chest pain on exertion, bilateral kidney pain and 4 episodes of syncope last week, with head injury. Denies fever, chills, headache, nausea, vomiting, or urinary changes. - Current Medication List Current Medications: Active Medications Amlodipine Besylate (Norvasc -) 10 mg PO DAILY [facility] Last Admin: 10/18/19 11:03 Dose: 10 mg Documented by: Aspirin (Ecotrin -) 81 mg PO DAILY [facility] Last Admin: 10/18/19 11:03 Dose: 81 mg Documented by: Atorvastatin Calcium (Lipitor -) 10 mg PO HS [facility] Last Admin: 10/17/19 21:15 Dose: 10 mg Documented by: Calcium Acetate (Phoslo -) 667 mg PO TIDCM [facility] Last Admin: 10/18/19 11:03 Dose: 667 mg Documented by: Carvedilol (Coreg -) 12.5 mg PO BID [facility] Last Admin: 10/18/19 11:03 Dose: 12.5 mg Documented by: Docusate Sodium (Colace -) 100 mg PO TID [facility] Last Admin: 10/18/19 14:37 Dose: 100 mg Documented by: Fentanyl (Sublimaze Injection -) 50 mcg IVPUSH [id number] PRN PRN Reason: PAIN-PACU ORDER X 4 DOSES ONLY Last Admin: 10/13/19 18:30 Dose: 50 mcg Documented by: Heparin Sodium (Porcine) (Heparin -) 5,000 unit SQ TID [facility] Last Admin: 10/18/19 14:37 Dose: 5,000 unit Documented by: Hydralazine HCl (Apresoline -) 50 mg PO BID [facility] Last Admin: 10/18/19 11:02 Dose: 50 mg Documented by: Insulin Aspart (Novolog Vial Sliding Scale -) 1 vial SQ [facility]; Protocol Last Admin: 10/18/19 11:08 Dose: Not Given Documented by: Ondansetron HCl (Zofran Injection) 4 mg IVPUSH Q6H PRN PRN Reason: NAUSEA AND/OR VOMITING Polyethylene Glycol (Miralax (For Daily Use) -) 17 gm PO BID [facility] Last Admin: 10/18/19 11:03 Dose: Not Given Documented by: Promethazine HCl (Phenergan Injection -) 12.5 mg IVPUSH Q6H PRN PRN Reason: NAUSEA-FOR RESCUE AFTER 15 MIN Sitagliptin Phosphate (Januvia -) 25 mg PO DAILY@0700 [facility] Last Admin: 10/18/19 06:14 Dose: 25 mg Documented by: - Objective Vital Signs: Vital Signs Temperature 98.6 F 10/18/19 14:42 Pulse Rate 72 10/18/19 14:42 Respiratory Rate 18 10/18/19 14:42 Blood Pressure 132/56 L 10/18/19 14:42 O2 Sat by Pulse Oximetry (%) 98 10/18/19 08:40 Eyes: Yes: WNL, Conjunctiva Clear, EOM Intact HENT: Yes: WNL, Atraumatic, Normocephalic Neck: Yes: WNL, Supple, Trachea Midline Cardiovascular: Yes: WNL, Regular Rate and Rhythm Respiratory: Yes: WNL, Regular, CTA Bilaterally Gastrointestinal: Yes: WNL, Normal Bowel Sounds Genitourinary: Yes: WNL Musculoskeletal: Yes: WNL Extremities: Yes: WNL Edema: No Integumentary: Yes: WNL Neurological: Yes: WNL, Alert, Oriented ...Motor Strength: WNL Psychiatric: Yes: WNL Labs: CBC, BMP 10/18/19 07:38 10/18/19 07:38 INR, PTT INR 1.03 (0.83-1.09) 09/25/19 00:09 Problem List - Problems (1) Diabetes Code(s): E11.9 - TYPE 2 DIABETES MELLITUS WITHOUT COMPLICATIONS (2) Hyperkalemia Code(s): E87.5 - HYPERKALEMIA (3) Hypertension Code(s): I10 - ESSENTIAL (PRIMARY) HYPERTENSION (4) Kidney failure Code(s): N19 - UNSPECIFIED KIDNEY FAILURE Qualifiers: Renal failure chronicity: acute on chronic Assessment/Plan ssessment/Plan ESRD; on hemodialysis Bilateral LE edema x several months Intermittent shortness of breath Syncope x 4 recently anemia severe hyperkalemia rhabdomyolysis HTN diastolic CHF elevated TNI; stress MIBI now shows small area of mildly intense inferior ischemia EKG: NSR; ? old septal infarct ECHO: normal LVEF; abnormal diastolic compliance; mild-moderate LVH; small pericardial effusion stable s/p AV fistula Rec: Cardiacc gregory stable Cont HD
--- NOTE | 2019-10-18 15:45 | PN ---
Physical Exam: SUBJECTIVE: Patient seen and examined, has no complaints. Has expanding area of brusing/extravasation at AVF site. OBJECTIVE: Vital Signs Period Temp Pulse Resp BP Sys/Lopes Pulse Ox Last 24 Hr 98.4 F-98.8 F 67-72 17-20 130-149/52-75 93-98 GENERAL: The patient is awake, alert, and fully oriented, in no acute distress. HEAD: Normal with no signs of trauma. EYES: PERRL, extraocular movements intact NECK: Trachea midline, full range of motion, supple. LUNGS: Breath sounds equal, clear to auscultation bilaterally, no wheezes, no crackles, no accessory muscle use. HEART: Regular rate and rhythm, S1, S2 without murmur, rub or gallop. ABDOMEN: R sided CVA tenderness. Soft, nontender, nondistended, normoactive bowel sounds. EXTREMITIES: Left sided AVF notable for bruising. 2+ pulses, warm, well- perfused, no edema. NEUROLOGICAL: Normal speech, gait not observed. PSYCH: Normal mood, normal affect. SKIN: Warm, dry, normal turgor, no rashes or lesions noted Laboratory Results - last 24 hr CBC, BMP 10/18/19 07:38 10/18/19 07:38 Active Medications Generic Name Dose Route Start Last Admin Trade Name Los PRN Reason Stop Dose Admin Amlodipine Besylate 10 mg 10/14/19 10:00 10/18/19 11:03 Norvasc - PO 10 mg DAILY [facility] Administration Aspirin 81 mg 10/14/19 10:00 10/18/19 11:03 Ecotrin - PO 81 mg DAILY [facility] Administration Atorvastatin Calcium 10 mg 10/13/19 22:00 10/17/19 21:15 Lipitor - PO 10 mg HS MAT Administration Calcium Acetate 667 mg 10/14/19 08:00 10/18/19 11:03 Phoslo - PO 667 mg TIDCM [facility] Administration Carvedilol 12.5 mg 10/13/19 22:00 10/18/19 11:03 Coreg - PO 12.5 mg BID [facility] Administration Docusate Sodium 100 mg 10/13/19 22:00 10/18/19 14:37 Colace - PO 100 mg TID [facility] Administration Fentanyl 50 mcg 10/13/19 18:10 10/13/19 18:30 Sublimaze Injection - IVPUSH 50 mcg [id number] PRN Administration PAIN-PACU ORDER X 4 DOSES ONLY Heparin Sodium (Porcine) 5,000 unit 10/13/19 22:00 10/18/19 14:37 Heparin - SQ 5,000 unit TID [facility] Administration Hydralazine HCl 50 mg 10/13/19 22:00 10/18/19 11:02 Apresoline - PO 50 mg BID [facility] Administration Insulin Aspart 1 vial 10/13/19 22:00 10/18/19 11:08 Novolog Vial Sliding Scale - SQ Not Given ACHS [facility] Protocol Ondansetron HCl 4 mg 10/13/19 18:10 Zofran Injection IVPUSH Q6H PRN NAUSEA AND/OR VOMITING Polyethylene Glycol 17 gm 10/13/19 22:00 10/18/19 11:03 Miralax (For Daily Use) - PO Not Given BID [facility] Promethazine HCl 12.5 mg 10/13/19 18:10 Phenergan Injection - IVPUSH Q6H PRN NAUSEA-FOR RESCUE AFTER 15 MIN Sitagliptin Phosphate 25 mg 10/14/19 07:00 10/18/19 06:14 Januvia - PO 25 mg DAILY@0700 [facility] Administration ASSESSMENT/PLAN: 69 yo M citizen of , currently visiting his nephew and undocumented in the [place], with PMHx of hypertension, non-insulin dependent Diabetes Mellitus, Cardiomyopathy w/ preserved EF, and CKD, presented to the ED with SoB, syncope, LE edema and was noted to have severe diabetic nephropathy and hyperkalemia requiring HD. Permacath placement was performed, and dialysis acheived, subsequently, a left AVF was placed by the Vascular Team. ESRD likely secondary to severe untreated diabetic nephropathy -AVF Placed on 10/12 -(10/15): site is tender to palpation, will continue to assess -(10/17): Site has increased bruising --> Will contact Vascular Office tomorrow -Permacath remains in place Chronic Anemia likely 2/2 CKD -Monitor CBC -Continue Epo Alpha Acute on Likely Chronic Diastolic CHF (Poor Medical Treatment/Records, as ptn was previously treated in ) -ECHO: EF: 60-65% -LA mildy dilated Hx of HTN -Continue Amlodine -Continue Coreg -Continue Hydralazine -Continue ASA DM -Previously on Metformin, will DC on discharge 2/2 CKD and risk of LA -Januvia 25mg qdaily -Atorvastatin 2/2 DM and Cardiac Risk Factor Equivalent -ISS w/ BGM Hypocalcemia 2/2 ESRD -Continue Phoslo Social Work -Social Work Consulted: Working with medicare -Monitor immigration status and DC planning -Cleared for DC by Vascular per their note. FEN Fluids: No standing fluids, limit excessive fluid intake Electrolytes: Follow BMP Nutrition: Renal Diet Dispo: Continue med/surg management. FU social work w/ goal of outpatient hemodialysis Visit type - Emergency Visit Emergency Visit: No - New Patient This patient is new to me today: No - Critical Care Critical Care patient: No - Discharge Referral Referred to [facility] Med P.C.: No - Medication Review Med list reviewed for High Risk Meds patients 65 and older: Yes ATTENDING PHYSICIAN STATEMENT I saw and evaluated the patient. I reviewed the resident's note and discussed the case with the resident. I agree with the resident's findings and plan as documented. SUBJECTIVE: OBJECTIVE: ASSESSMENT AND PLAN:
[2019-10-18] MEDS ORDERED: ACETAMINOPHEN INJECTION 0 ML IVPB ONE (21:25)
[2019-10-18] MEDS: ATORVASTATIN CA 10 MG TABLET (FP) PO SCH (21:47)
[2019-10-19] MEDS: HEPARIN NA (PORCINE) 5,000 UNITS/ML 1ML VIAL SQ SCH ×3 (06:18→21:56)
[2019-10-19] MEDS: DOCUSATE SODIUM 100 MG CAPSULE (FP) PO SCH ×3 (06:18→21:56)
[2019-10-19] MEDS: INSULIN SLIDING SCALE (NOVOLOG) 1 VIAL SQ SCH ×4 (06:24→21:54)
[2019-10-19] MEDS: CALCIUM ACETATE 667 MG CAPSULE (FP) PO SCH ×3 (09:31→18:09)
[2019-10-19] MEDS: hydrALAZINE HCL 50 MG TABLET (FP) PO SCH ×2 (09:31→21:56)
[2019-10-19] MEDS: CARVEDILOL 12.5 MG TABLET (FP) PO SCH ×2 (09:31→21:56)
[2019-10-19] MEDS: ASPIRIN COATED 81 MG TABLET.EC PO SCH (09:32)
[2019-10-19] MEDS: POLYETHYLENE GLYCOL 3350 119 GM BTL PO SCH ×2 (09:32→21:57)
[2019-10-19] MEDS: amLODIPine BESYLATE 5 MG TABLET (FP) PO SCH (09:32)
[2019-10-19] MEDS ORDERED: EPOETIN ALFA 10,000 UNIT/1 ML VIAL IVPUSH ONE (11:00)
[2019-10-19] MEDS ORDERED: SODIUM CHLORIDE 250 ML IV PRN (11:00)
[2019-10-19 11:34] LABS: HEMATOCRIT 27.4 % (35.4-49); HEMOGLOBIN 8.8 GM/dL (11.7-16.9); MCH 29.7 pg (25.7-33.7); MCHC 32.2 g/dl (32.0-35.9); MEAN CELL VOLUME 92.1 fl (80-96); MEAN PLT VOLUME 9.3 fl (7.5-11.1); PLATELET COUNT 143 K/MM3 (134-434); RBC 2.97 M/mm3 (4.00-5.60); RDW 15.8 % (11.9-15.9); WHITE BLOOD COUNT 5.2 K/mm3 (4.0-10.0)
[2019-10-19 11:59] LABS: BLOOD UREA NITROGEN 24.2 mg/dL (7-18); CALCIUM 8.1 mg/dL (8.5-10.1); CREATININE 3.9 mg/dL (0.55-1.3); PHOSPHOROUS 2.6 mg/dL (2.5-4.9); POTASSIUM 3.2 mmol/L (3.5-5.1)
--- NOTE | 2019-10-19 12:15 | PN ---
Progress Note, Physician History of Present Illness: Mr. Vuong is a 69 year old male (. [facility]) with a significant past medical history of HTN, DM, CHF, and renal dysfunction, who presents to the ED with 4 months of bilateral LE edema. As per patient, he presented to the ED from the [facility] secondary to receiving inadequate care. Patient also endorses one month of intermittent shortness of breath, chest pain on exertion, bilateral kidney pain and 4 episodes of syncope last week, with head injury. Denies fever, chills, headache, nausea, vomiting, or urinary changes. - Current Medication List Current Medications: Active Medications Amlodipine Besylate (Norvasc -) 10 mg PO DAILY [facility] Last Admin: 10/19/19 09:32 Dose: Not Given Documented by: Aspirin (Ecotrin -) 81 mg PO DAILY [facility] Last Admin: 10/19/19 09:32 Dose: Not Given Documented by: Atorvastatin Calcium (Lipitor -) 10 mg PO HS [facility] Last Admin: 10/18/19 21:47 Dose: 10 mg Documented by: Calcium Acetate (Phoslo -) 667 mg PO TIDCM [facility] Last Admin: 10/19/19 09:31 Dose: Not Given Documented by: Carvedilol (Coreg -) 12.5 mg PO BID [facility] Last Admin: 10/19/19 09:31 Dose: Not Given Documented by: Docusate Sodium (Colace -) 100 mg PO TID [facility] Last Admin: 10/19/19 06:18 Dose: 100 mg Documented by: Fentanyl (Sublimaze Injection -) 50 mcg IVPUSH [id number] PRN PRN Reason: PAIN-PACU ORDER X 4 DOSES ONLY Last Admin: 10/13/19 18:30 Dose: 50 mcg Documented by: Heparin Sodium (Porcine) (Heparin -) 5,000 unit SQ TID [facility] Last Admin: 10/19/19 06:18 Dose: 5,000 unit Documented by: Hydralazine HCl (Apresoline -) 50 mg PO BID [facility] Last Admin: 10/19/19 09:31 Dose: Not Given Documented by: Sodium Chloride (Normal Saline -) 250 mls @ 3,000 mls/hr IV PRN PRN PRN Reason: Hypotension during Dialysis Stop: 10/20/19 10:59 Insulin Aspart (Novolog Vial Sliding Scale -) 1 vial SQ [facility]; Protocol Last Admin: 10/19/19 06:24 Dose: Not Given Documented by: Ondansetron HCl (Zofran Injection) 4 mg IVPUSH Q6H PRN PRN Reason: NAUSEA AND/OR VOMITING Polyethylene Glycol (Miralax (For Daily Use) -) 17 gm PO BID [facility] Last Admin: 10/19/19 09:32 Dose: Not Given Documented by: Promethazine HCl (Phenergan Injection -) 12.5 mg IVPUSH Q6H PRN PRN Reason: NAUSEA-FOR RESCUE AFTER 15 MIN Sitagliptin Phosphate (Januvia -) 25 mg PO DAILY@0700 [facility] Last Admin: 10/19/19 06:18 Dose: 25 mg Documented by: - Objective Vital Signs: Vital Signs Temperature 97.9 F 10/19/19 09:00 Pulse Rate 68 10/19/19 11:00 Respiratory Rate 18 10/19/19 11:00 Blood Pressure 142/66 10/19/19 11:00 O2 Sat by Pulse Oximetry (%) 98 10/19/19 09:00 Eyes: Yes: WNL, Conjunctiva Clear, EOM Intact HENT: Yes: WNL, Atraumatic, Normocephalic Neck: Yes: WNL, Supple, Trachea Midline Cardiovascular: Yes: WNL, Regular Rate and Rhythm Respiratory: Yes: WNL, Regular, CTA Bilaterally Gastrointestinal: Yes: WNL, Normal Bowel Sounds Genitourinary: Yes: WNL Musculoskeletal: Yes: WNL Extremities: Yes: WNL Edema: No Integumentary: Yes: WNL Neurological: Yes: WNL, Alert, Oriented ...Motor Strength: WNL Psychiatric: Yes: WNL Labs: CBC, BMP 10/19/19 10:30 10/19/19 10:30 INR, PTT INR 1.03 (0.83-1.09) 09/25/19 00:09 Problem List - Problems (1) Diabetes Code(s): E11.9 - TYPE 2 DIABETES MELLITUS WITHOUT COMPLICATIONS (2) Hyperkalemia Code(s): E87.5 - HYPERKALEMIA (3) Hypertension Code(s): I10 - ESSENTIAL (PRIMARY) HYPERTENSION (4) Kidney failure Code(s): N19 - UNSPECIFIED KIDNEY FAILURE Qualifiers: Renal failure chronicity: acute on chronic Assessment/Plan ssessment/Plan ESRD; on hemodialysis Bilateral LE edema x several months Intermittent shortness of breath Syncope x 4 recently anemia severe hyperkalemia rhabdomyolysis HTN diastolic CHF elevated TNI; stress MIBI now shows small area of mildly intense inferior ischemia EKG: NSR; ? old septal infarct ECHO: normal LVEF; abnormal diastolic compliance; mild-moderate LVH; small pericardial effusion stable s/p AV fistula Rec: Cardiacc gregory stable Cont HD
--- NOTE | 2019-10-19 14:51 | PN ---
Physical Exam: SUBJECTIVE: Patient seen and examined, no acute distress, bruising around AVF site has decreased. Awaiting outpatient dialysis placement. OBJECTIVE: Vital Signs Period Temp Pulse Resp BP Sys/Lopes Pulse Ox Last 24 Hr 97.9 F-98.7 F 68-80 18-20 135-176/57-77 97-98 GENERAL: The patient is awake, alert, and fully oriented, in no acute distress. HEAD: Normal with no signs of trauma. EYES: PERRL, extraocular movements intact NECK: Trachea midline, full range of motion, supple. LUNGS: Breath sounds equal, clear to auscultation bilaterally, no wheezes, no crackles, no accessory muscle use. HEART: Regular rate and rhythm, S1, S2 without murmur, rub or gallop. ABDOMEN: R sided CVA tenderness. Soft, nontender, nondistended, normoactive bowel sounds. EXTREMITIES: Left sided AVF notable for bruising, but decreasing. 2+ pulses, warm, well-perfused, no edema. NEUROLOGICAL: Normal speech, gait not observed. PSYCH: Normal mood, normal affect. SKIN: Warm, dry, normal turgor, no rashes or lesions noted Laboratory Results - last 24 hr CBC, BMP 10/19/19 10:30 10/19/19 10:30 Active Medications Generic Name Dose Route Start Last Admin Trade Name Vinhq PRN Reason Stop Dose Admin Amlodipine Besylate 10 mg 10/14/19 10:00 10/19/19 09:32 Norvasc - PO Not Given DAILY [facility] Aspirin 81 mg 10/14/19 10:00 10/19/19 09:32 Ecotrin - PO Not Given DAILY MAT Atorvastatin Calcium 10 mg 10/13/19 22:00 10/18/19 21:47 Lipitor - PO 10 mg HS [facility] Administration Calcium Acetate 667 mg 10/14/19 08:00 10/19/19 13:29 Phoslo - PO Not Given TIDCM MAT Carvedilol 12.5 mg 10/13/19 22:00 10/19/19 09:31 Coreg - PO Not Given BID MAT Docusate Sodium 100 mg 10/13/19 22:00 10/19/19 14:45 Colace - PO 100 mg TID [facility] Administration Fentanyl 50 mcg 10/13/19 18:10 10/13/19 18:30 Sublimaze Injection - IVPUSH 50 mcg [id number] PRN Administration PAIN-PACU ORDER X 4 DOSES ONLY Heparin Sodium (Porcine) 5,000 unit 10/13/19 22:00 10/19/19 14:45 Heparin - SQ 5,000 unit TID [facility] Administration Hydralazine HCl 50 mg 10/13/19 22:00 10/19/19 09:31 Apresoline - PO Not Given BID [facility] Sodium Chloride 250 mls @ 3,000 mls/hr 10/19/19 11:00 Normal Saline - IV 10/20/19 10:59 PRN PRN Hypotension during Dialysis Insulin Aspart 1 vial 10/13/19 22:00 10/19/19 13:29 Novolog Vial Sliding Scale - SQ Not Given ACHS [facility] Protocol Ondansetron HCl 4 mg 10/13/19 18:10 Zofran Injection IVPUSH Q6H PRN NAUSEA AND/OR VOMITING Polyethylene Glycol 17 gm 10/13/19 22:00 10/19/19 09:32 Miralax (For Daily Use) - PO Not Given BID [facility] Promethazine HCl 12.5 mg 10/13/19 18:10 Phenergan Injection - IVPUSH Q6H PRN NAUSEA-FOR RESCUE AFTER 15 MIN Sitagliptin Phosphate 25 mg 10/14/19 07:00 10/19/19 06:18 Januvia - PO 25 mg DAILY@0700 [facility] Administration ASSESSMENT/PLAN: 69 yo M citizen of , currently visiting his nephew and [place] the [place], with PMHx of hypertension, non-insulin dependent Diabetes Mellitus, Cardiomyopathy w/ preserved EF, and CKD, presented to the ED with SoB, syncope, LE edema and was noted to have severe diabetic nephropathy and hyperkalemia r equiring HD. Permacath placement was performed, and dialysis acheived, subsequently, a left AVF was placed by the Vascular Team. ESRD likely secondary to severe untreated diabetic nephropathy -AVF Placed on 10/12 -(10/15): site is tender to palpation, will continue to assess -(10/17): Site has increased bruising -(10/18): Bruising has decreased -Permacath remains in place Chronic Anemia likely 2/2 CKD -Continue Epo Alpha Acute on Likely Chronic Diastolic CHF (Poor Medical Treatment/Records, as ptn was previously treated in ) -ECHO: EF: 60-65% -LA mildly dilated Hx of HTN -Continue Amlodine -Continue Coreg -Continue Hydralazine -Continue ASA DM -Previously on Metformin, will DC on discharge 2/2 CKD and risk of LA -Januvia 25mg qdaily -Atorvastatin 2/2 DM and Cardiac Risk Factor Equivalent -ISS w/ BGM Hypocalcemia 2/2 ESRD -Continue Phoslo Social Work -Social Work Consulted: Working with medicare to obtain outpatient dialysis placement. -Monitor immigration status and DC planning -Cleared for DC by Vascular per their note. FEN Fluids: No standing fluids, limit excessive fluid intake Electrolytes: Follow BMP Nutrition: Renal Diet Dispo: Continue med/surg management. FU social work w/ goal of outpatient hemodialysis Visit type - Emergency Visit Emergency Visit: No - New Patient This patient is new to me today: No - Critical Care Critical Care patient: No - Discharge Referral Referred to [facility] Med P.C.: No - Medication Review Med list reviewed for High Risk Meds patients 65 and older: Yes ATTENDING PHYSICIAN STATEMENT I saw and evaluated the patient. I reviewed the resident's note and discussed the case with the resident. I agree with the resident's findings and plan as documented. SUBJECTIVE: OBJECTIVE: ASSESSMENT AND PLAN:
--- NOTE | 2019-10-19 16:14 | PN ---
Teaching Attending Note Name of Resident: Yan Celis ATTENDING PHYSICIAN STATEMENT I saw and evaluated the patient. I reviewed the resident's note and discussed the case with the resident. I agree with the resident's findings and plan as documented. SUBJECTIVE: No complaints OBJECTIVE: Vital Signs Period Temp Pulse Resp BP Sys/Lopes Pulse Ox Last 24 Hr 97.9 F-98.9 F 68-80 18-20 135-176/57-79 97-98 As per residents note ASSESSMENT AND PLAN: This patient is a 69yom with PMhx of HTN, T2DM , cardiomyopathy, and possible CKD , who presented with LE edema and was found to have severe diabetic nephropathy and hyperkalemia requiring HD. ESRD on HD Awaiting HD placement AVF placed by vascular Sx. Continue home medications for chronic issues Patient medically stable for discharge. Space daily labs HTN Can increase Hydralazine as BP not controlled Continue Amlpdipine Rest of plan as per resident ntoe
--- NOTE | 2019-10-19 19:56 | PN ---
Progress Note, Physician Chief Complaint: Renal failure History of Present Illness: Seen and examined at the bedside awake and alert s/p dialysis via permcath earlier today Tolerated it well with 1L UF no sob, cp, fever, chills still has bruising in left arm - Current Medication List Current Medications: Active Medications Amlodipine Besylate (Norvasc -) 10 mg PO DAILY [facility] Last Admin: 10/19/19 09:32 Dose: Not Given Documented by: Aspirin (Ecotrin -) 81 mg PO DAILY [facility] Last Admin: 10/19/19 09:32 Dose: Not Given Documented by: Atorvastatin Calcium (Lipitor -) 10 mg PO HS [facility] Last Admin: 10/18/19 21:47 Dose: 10 mg Documented by: Calcium Acetate (Phoslo -) 667 mg PO TIDCM [facility] Last Admin: 10/19/19 18:09 Dose: 667 mg Documented by: Carvedilol (Coreg -) 12.5 mg PO BID [facility] Last Admin: 10/19/19 09:31 Dose: Not Given Documented by: Docusate Sodium (Colace -) 100 mg PO TID [facility] Last Admin: 10/19/19 14:45 Dose: 100 mg Documented by: Fentanyl (Sublimaze Injection -) 50 mcg IVPUSH [id number] PRN PRN Reason: PAIN-PACU ORDER X 4 DOSES ONLY Last Admin: 10/13/19 18:30 Dose: 50 mcg Documented by: Heparin Sodium (Porcine) (Heparin -) 5,000 unit SQ TID [facility] Last Admin: 10/19/19 14:45 Dose: 5,000 unit Documented by: Hydralazine HCl (Apresoline -) 50 mg PO BID [facility] Last Admin: 10/19/19 09:31 Dose: Not Given Documented by: Sodium Chloride (Normal Saline -) 250 mls @ 3,000 mls/hr IV PRN PRN PRN Reason: Hypotension during Dialysis Stop: 10/20/19 10:59 Insulin Aspart (Novolog Vial Sliding Scale -) 1 vial SQ [facility]; Protocol Last Admin: 10/19/19 18:09 Dose: 4 units Documented by: Ondansetron HCl (Zofran Injection) 4 mg IVPUSH Q6H PRN PRN Reason: NAUSEA AND/OR VOMITING Polyethylene Glycol (Miralax (For Daily Use) -) 17 gm PO BID [facility] Last Admin: 10/19/19 09:32 Dose: Not Given Documented by: Promethazine HCl (Phenergan Injection -) 12.5 mg IVPUSH Q6H PRN PRN Reason: NAUSEA-FOR RESCUE AFTER 15 MIN Sitagliptin Phosphate (Januvia -) 25 mg PO DAILY@0700 [facility] Last Admin: 10/19/19 06:18 Dose: 25 mg Documented by: - Objective Vital Signs: Vital Signs Temperature 99.0 F 10/19/19 18:59 Pulse Rate 71 10/19/19 18:59 Respiratory Rate 18 10/19/19 18:59 Blood Pressure 156/84 10/19/19 18:59 O2 Sat by Pulse Oximetry (%) 96 10/19/19 18:59 Constitutional: Yes: No Distress, Calm HENT: Yes: Atraumatic Neck: Yes: Supple Cardiovascular: Yes: Regular Rate and Rhythm Respiratory: Yes: Regular, CTA Bilaterally Gastrointestinal: Yes: Soft. No: Tenderness Extremities: Yes: Other (burising in left arm) Edema: No Neurological: Yes: Alert, Oriented Labs: CBC, BMP 10/19/19 10:30 10/19/19 10:30 INR, PTT INR 1.03 (0.83-1.09) 09/25/19 00:09 Assessment/Plan 69 year old male with history of hypertension, non-insulin dependent DM, cardiomyopathy, and possible CKD who came from the [place] and presented to the ED with complaints of leg swelling and syncope and found to have renal failure and hyperkalemia. 1. ESRD requiring dialysis secondary to severe diabetic nephropathy (biopsy proven) 2. Hyperkalemia now resolved 3. Volume overload 4. Metabolic acidosis 5. Anemia 6. Hypertension 7. DM not on insulin 9. Cardiomyopathy Tolerated dialysis well today, next planned dialysis on Thursday continue Hd 3x weekly for ESRD from diabetic nephropathy s/p AVF placement per vascular, will need vascular follow up access brusing in AVF arm. Still awaiting insurance authorization for outpatient dialysis placement. SOPHIE give with dialysis for anemia Renal diet Discharge once outpatient dialysis is secured. Thank you Luiz Galdamez DO
[2019-10-19] MEDS: ATORVASTATIN CA 10 MG TABLET (FP) PO SCH (21:55)
[2019-10-20] MEDS: INSULIN SLIDING SCALE (NOVOLOG) 1 VIAL SQ SCH ×4 (06:06→21:01)
[2019-10-20] MEDS: HEPARIN NA (PORCINE) 5,000 UNITS/ML 1ML VIAL SQ SCH ×2 (06:06→16:25)
[2019-10-20] MEDS: DOCUSATE SODIUM 100 MG CAPSULE (FP) PO SCH ×3 (06:06→21:03)
[2019-10-20] MEDS ORDERED: PT OWN MED DRAWER 7, Y5N ONE (06:41)
[2019-10-20] MEDS: ASPIRIN COATED 81 MG TABLET.EC PO SCH (11:07)
[2019-10-20] MEDS: CALCIUM ACETATE 667 MG CAPSULE (FP) PO SCH ×3 (11:07→18:58)
[2019-10-20] MEDS: CARVEDILOL 12.5 MG TABLET (FP) PO SCH ×2 (11:07→21:03)
[2019-10-20] MEDS: POLYETHYLENE GLYCOL 3350 119 GM BTL PO SCH ×2 (11:08→21:01)
[2019-10-20] MEDS: hydrALAZINE HCL 50 MG TABLET (FP) PO SCH ×2 (11:08→21:03)
[2019-10-20] MEDS: LOSARTAN POTASSIUM 50 MG TABLET (FP) PO SCH (11:08)
[2019-10-20] MEDS: amLODIPine BESYLATE 5 MG TABLET (FP) PO SCH (11:08)
--- NOTE | 2019-10-20 13:47 | PN ---
Progress Note, Physician History of Present Illness: Mr. Vuong is a 69 year old male (. [facility]) with a significant past medical history of HTN, DM, CHF, and renal dysfunction, who presents to the ED with 4 months of bilateral LE edema. As per patient, he presented to the ED from the [facility] secondary to receiving inadequate care. Patient also endorses one month of intermittent shortness of breath, chest pain on exertion, bilateral kidney pain and 4 episodes of syncope last week, with head injury. Denies fever, chills, headache, nausea, vomiting, or urinary changes. - Current Medication List Current Medications: Active Medications Amlodipine Besylate (Norvasc -) 10 mg PO DAILY [facility] Last Admin: 10/20/19 11:08 Dose: 10 mg Documented by: Aspirin (Ecotrin -) 81 mg PO DAILY [facility] Last Admin: 10/20/19 11:07 Dose: 81 mg Documented by: Atorvastatin Calcium (Lipitor -) 10 mg PO HS [facility] Last Admin: 10/19/19 21:55 Dose: 10 mg Documented by: Calcium Acetate (Phoslo -) 667 mg PO TIDCM [facility] Last Admin: 10/20/19 11:07 Dose: 667 mg Documented by: Carvedilol (Coreg -) 12.5 mg PO BID [facility] Last Admin: 10/20/19 11:07 Dose: 12.5 mg Documented by: Docusate Sodium (Colace -) 100 mg PO TID [facility] Last Admin: 10/20/19 06:06 Dose: 100 mg Documented by: Fentanyl (Sublimaze Injection -) 50 mcg IVPUSH [id number] PRN PRN Reason: PAIN-PACU ORDER X 4 DOSES ONLY Last Admin: 10/13/19 18:30 Dose: 50 mcg Documented by: Heparin Sodium (Porcine) (Heparin -) 5,000 unit SQ TID [facility] Last Admin: 10/20/19 06:06 Dose: 5,000 unit Documented by: Hydralazine HCl (Apresoline -) 50 mg PO BID [facility] Last Admin: 10/20/19 11:08 Dose: 50 mg Documented by: Insulin Aspart (Novolog Vial Sliding Scale -) 1 vial SQ [facility]; Protocol Last Admin: 10/20/19 11:21 Dose: 2 units Documented by: Losartan Potassium (Cozaar -) 50 mg PO DAILY [facility] Last Admin: 10/20/19 11:08 Dose: 50 mg Documented by: Ondansetron HCl (Zofran Injection) 4 mg IVPUSH Q6H PRN PRN Reason: NAUSEA AND/OR VOMITING Polyethylene Glycol (Miralax (For Daily Use) -) 17 gm PO BID [facility] Last Admin: 10/20/19 11:08 Dose: Not Given Documented by: Promethazine HCl (Phenergan Injection -) 12.5 mg IVPUSH Q6H PRN PRN Reason: NAUSEA-FOR RESCUE AFTER 15 MIN Sitagliptin Phosphate (Januvia -) 25 mg PO DAILY@0700 [facility] Last Admin: 10/20/19 06:06 Dose: 25 mg Documented by: - Objective Vital Signs: Vital Signs Temperature 98.4 F 10/20/19 05:00 Pulse Rate 72 10/20/19 05:00 Respiratory Rate 20 10/20/19 05:00 Blood Pressure 148/65 10/20/19 05:00 O2 Sat by Pulse Oximetry (%) 102 H 10/20/19 05:00 Eyes: Yes: WNL, Conjunctiva Clear, EOM Intact HENT: Yes: WNL, Atraumatic, Normocephalic Neck: Yes: WNL, Supple, Trachea Midline Cardiovascular: Yes: WNL, Regular Rate and Rhythm Respiratory: Yes: WNL, Regular, CTA Bilaterally Gastrointestinal: Yes: WNL, Normal Bowel Sounds Genitourinary: Yes: WNL Musculoskeletal: Yes: WNL Extremities: Yes: WNL Edema: No Integumentary: Yes: WNL Neurological: Yes: WNL, Alert, Oriented ...Motor Strength: WNL Psychiatric: Yes: WNL Labs: CBC, BMP 10/19/19 10:30 10/19/19 10:30 INR, PTT INR 1.03 (0.83-1.09) 09/25/19 00:09 Problem List - Problems (1) Diabetes Code(s): E11.9 - TYPE 2 DIABETES MELLITUS WITHOUT COMPLICATIONS (2) Hyperkalemia Code(s): E87.5 - HYPERKALEMIA (3) Hypertension Code(s): I10 - ESSENTIAL (PRIMARY) HYPERTENSION (4) Kidney failure Code(s): N19 - UNSPECIFIED KIDNEY FAILURE Qualifiers: Renal failure chronicity: acute on chronic Assessment/Plan ssessment/Plan ESRD; on hemodialysis Bilateral LE edema x several months Intermittent shortness of breath Syncope x 4 recently anemia severe hyperkalemia rhabdomyolysis HTN diastolic CHF elevated TNI; stress MIBI now shows small area of mildly intense inferior ischemia EKG: NSR; ? old septal infarct ECHO: normal LVEF; abnormal diastolic compliance; mild-moderate LVH; small pericardial effusion stable s/p AV fistula Rec: Cardiacc gregory stable Cont HD
--- NOTE | 2019-10-20 13:54 | PN ---
Teaching Attending Note Name of Resident: Yan Celis ATTENDING PHYSICIAN STATEMENT I saw and evaluated the patient. I reviewed the resident's note and discussed the case with the resident. I agree with the resident's findings and plan as documented. SUBJECTIVE: Has no complaints, walking around the halls this morning OBJECTIVE: Vital Signs Period Temp Pulse Resp BP Sys/Lopes Pulse Ox Last 24 Hr 98.4 F-99.0 F 71-77 18-20 148-160/59-84 94-102 Physical Exam as per resident note ASSESSMENT AND PLAN: This patient is a 69yom with PMhx of HTN, T2DM , cardiomyopathy, and possible CKD , who presented with LE edema and was found to have severe diabetic nephropathy and hyperkalemia requiring HD. ESRD on HD Awaiting HD placement AVF placed by vascular Sx. Continue home medications for chronic issues Patient medically stable for discharge. Space daily labs HTN Can increase Hydralazine as BP not controlled Continue Amlodipine Rest of plan as per resident note
--- NOTE | 2019-10-20 16:12 | PN ---
Progress Note, Physician Chief Complaint: Renal failure History of Present Illness: Seen and examined at the bedside awake and alert offers no acute complaints no sob, cp, fever, chills s/p dialysis yesterday - Current Medication List Current Medications: Active Medications Amlodipine Besylate (Norvasc -) 10 mg PO DAILY [facility] Last Admin: 10/20/19 11:08 Dose: 10 mg Documented by: Aspirin (Ecotrin -) 81 mg PO DAILY [facility] Last Admin: 10/20/19 11:07 Dose: 81 mg Documented by: Atorvastatin Calcium (Lipitor -) 10 mg PO HS [facility] Last Admin: 10/19/19 21:55 Dose: 10 mg Documented by: Calcium Acetate (Phoslo -) 667 mg PO TIDCM [facility] Last Admin: 10/20/19 11:07 Dose: 667 mg Documented by: Carvedilol (Coreg -) 12.5 mg PO BID [facility] Last Admin: 10/20/19 11:07 Dose: 12.5 mg Documented by: Docusate Sodium (Colace -) 100 mg PO TID [facility] Last Admin: 10/20/19 06:06 Dose: 100 mg Documented by: Fentanyl (Sublimaze Injection -) 50 mcg IVPUSH [id number] PRN PRN Reason: PAIN-PACU ORDER X 4 DOSES ONLY Last Admin: 10/13/19 18:30 Dose: 50 mcg Documented by: Heparin Sodium (Porcine) (Heparin -) 5,000 unit SQ TID [facility] Last Admin: 10/20/19 06:06 Dose: 5,000 unit Documented by: Hydralazine HCl (Apresoline -) 50 mg PO BID [facility] Last Admin: 10/20/19 11:08 Dose: 50 mg Documented by: Insulin Aspart (Novolog Vial Sliding Scale -) 1 vial SQ [facility]; Protocol Last Admin: 10/20/19 11:21 Dose: 2 units Documented by: Losartan Potassium (Cozaar -) 50 mg PO DAILY [facility] Last Admin: 10/20/19 11:08 Dose: 50 mg Documented by: Ondansetron HCl (Zofran Injection) 4 mg IVPUSH Q6H PRN PRN Reason: NAUSEA AND/OR VOMITING Polyethylene Glycol (Miralax (For Daily Use) -) 17 gm PO BID [facility] Last Admin: 10/20/19 11:08 Dose: Not Given Documented by: Promethazine HCl (Phenergan Injection -) 12.5 mg IVPUSH Q6H PRN PRN Reason: NAUSEA-FOR RESCUE AFTER 15 MIN Sitagliptin Phosphate (Januvia -) 25 mg PO DAILY@0700 [facility] Last Admin: 10/20/19 06:06 Dose: 25 mg Documented by: - Objective Vital Signs: Vital Signs Temperature 98.8 F 10/20/19 14:00 Pulse Rate 71 10/20/19 14:00 Respiratory Rate 20 10/20/19 05:00 Blood Pressure 141/59 L 10/20/19 14:00 O2 Sat by Pulse Oximetry (%) 102 H 10/20/19 05:00 Constitutional: Yes: No Distress, Calm HENT: Yes: Atraumatic Neck: Yes: Supple Cardiovascular: Yes: Regular Rate and Rhythm Respiratory: Yes: Regular, CTA Bilaterally Gastrointestinal: Yes: Soft Extremities: Yes: Other (Brusing on access arm) Edema: No Neurological: Yes: Alert, Oriented Labs: CBC, BMP 10/19/19 10:30 10/19/19 10:30 INR, PTT INR 1.03 (0.83-1.09) 09/25/19 00:09 Assessment/Plan 69 year old male with history of hypertension, non-insulin dependent DM, cardiomyopathy, and possible CKD who came from the [place] and presented to the ED with complaints of leg swelling and syncope and found to have renal failure and hyperkalemia. 1. ESRD requiring dialysis secondary to severe diabetic nephropathy (biopsy proven) 2. Hyperkalemia now resolved 3. Volume overload 4. Metabolic acidosis 5. Anemia 6. Hypertension 7. DM not on insulin 9. Cardiomyopathy Tolerated dialysis well yesterday, next planned dialysis on Thursday continue Hd 3x weekly for ESRD from diabetic nephropathy s/p AVF placement per vascular, currently using tunneled HD catheter until AVF is mature Still awaiting insurance authorization for outpatient dialysis placement. SOPHIE give with dialysis for anemia Renal diet Added Losartan 50mg daily for additional BP control Discharge once outpatient dialysis is secured. Thank you Luiz Galdamez DO
--- NOTE | 2019-10-20 16:54 | PN ---
Physical Exam: SUBJECTIVE: Patient seen and examined. In no acute distress. Dialysis tomorrow. Awaiting outpatient placement for Dialysis. OBJECTIVE: Vital Signs Period Temp Pulse Resp BP Sys/Lopes Pulse Ox Last 24 Hr 98.4 F-99.0 F 71-72 18-20 141-156/59-84 94-102 GENERAL: The patient is awake, alert, and fully oriented, in no acute distress. HEAD: Normal with no signs of trauma. EYES: PERRL, extraocular movements intact NECK: Trachea midline, full range of motion, supple. LUNGS: Breath sounds equal, clear to auscultation bilaterally, no wheezes, no crackles, no accessory muscle use. HEART: Regular rate and rhythm, S1, S2 without murmur, rub or gallop. ABDOMEN: R sided CVA tenderness. Soft, nontender, nondistended, normoactive bowel sounds. EXTREMITIES: Left sided AVF notable for bruising, but decreasing. 2+ pulses, warm, well-perfused, no edema. NEUROLOGICAL: Normal speech, gait not observed. PSYCH: Normal mood, normal affect. SKIN: Warm, dry, normal turgor, no rashes or lesions noted Laboratory Results - last 24 hr 10/19/19 10/19/19 10/20/19 17:48 21:54 06:05 POC Glucometer 228 80 136 10/20/19 11:20 POC Glucometer 166 Active Medications Generic Name Dose Route Start Last Admin Trade Name Freq PRN Reason Stop Dose Admin Amlodipine Besylate 10 mg 10/14/19 10:00 10/20/19 11:08 Norvasc - PO 10 mg DAILY [facility] Administration Aspirin 81 mg 10/14/19 10:10/20/19 11:07 Ecotrin - PO 81 mg DAILY [facility] Administration Atorvastatin Calcium 10 mg 10/13/19 22:00 10/19/19 21:55 Lipitor - PO 10 mg HS [facility] Administration Calcium Acetate 667 mg 10/14/19 08:00 10/20/19 16:25 Phoslo - PO 667 mg TIDCM [facility] Administration Carvedilol 12.5 mg 10/13/19 22:00 10/20/19 11:07 Coreg - PO 12.5 mg BID [facility] Administration Docusate Sodium 100 mg 10/13/19 22:00 10/20/19 16:25 Colace - PO 100 mg TID [facility] Administration Epoetin Efrem 10,000 unit 10/21/19 08:00 Procrit - IVPUSH 10/21/19 08:01 ONCE ONE Fentanyl 50 mcg 10/13/19 18:10 10/13/19 18:30 Sublimaze Injection - IVPUSH 50 mcg [id number] PRN Administration PAIN-PACU ORDER X 4 DOSES ONLY Heparin Sodium (Porcine) 5,000 unit 10/13/19 22:00 10/20/19 16:25 Heparin - SQ 5,000 unit TID [facility] Administration Hydralazine HCl 50 mg 10/13/19 22:00 10/20/19 11:08 Apresoline - PO 50 mg BID [facility] Administration Sodium Chloride 250 mls @ 3,000 mls/hr 10/20/19 16:13 Normal Saline - IV 10/21/19 16:13 PRN PRN Hypotension during Dialysis Iron Sucrose 100 mg/ Sodium 100 mls @ 200 mls/hr 10/21/19 08:00 Chloride IVPB 10/21/19 08:29 ONCE ONE Insulin Aspart 1 vial 10/13/19 22:00 10/20/19 11:21 Novolog Vial Sliding Scale - SQ 2 units ACHS [facility] Administration Protocol Losartan Potassium 50 mg 10/20/19 10:45 10/20/19 11:08 Cozaar - PO 50 mg DAILY [facility] Administration Ondansetron HCl 4 mg 10/13/19 18:10 Zofran Injection IVPUSH Q6H PRN NAUSEA AND/OR VOMITING Polyethylene Glycol 17 gm 10/13/19 22:00 10/20/19 11:08 Miralax (For Daily Use) - PO Not Given BID [facility] Promethazine HCl 12.5 mg 10/13/19 18:10 Phenergan Injection - IVPUSH Q6H PRN NAUSEA-FOR RESCUE AFTER 15 MIN Sitagliptin Phosphate 25 mg 10/14/19 07:00 10/20/19 06:06 Januvia - PO 25 mg DAILY@0700 [facility] Administration ASSESSMENT/PLAN: 69 yo M citizen of , currently visiting his nephew and undocumented in the [place], with PMHx of hypertension, non-insulin dependent Diabetes Mellitus, Cardiomyopathy w/ preserved EF, and CKD, presented to the ED with SoB, syncope, LE edema and was noted to have severe diabetic nephropathy and hyperkalemia requiring HD. Permacath placement was performed, and dialysis acheived, subsequently, a left AVF was placed by the Vascular Team. ESRD likely secondary to severe untreated diabetic nephropathy -AVF Placed on 10/12 -(10/15): site is tender to palpation, will continue to assess -(10/17): Site has increased bruising -(10/18): Bruising has decreased -Permacath remains in place Chronic Anemia likely 2/2 CKD -Continue Epo Alpha Acute on Likely Chronic Diastolic CHF (Poor Medical Treatment/Records, as ptn was previously treated in [place]) -ECHO: EF: 60-65% -LA mildly dilated Hx of HTN -Continue Amlodine -Continue Coreg -Continue Hydralazine -Continue ASA DM -Previously on Metformin, will DC on discharge 2/2 CKD and risk of LA -Januvia 25mg qdaily -Atorvastatin 2/2 DM and Cardiac Risk Factor Equivalent -ISS w/ BGM Hypocalcemia 2/2 ESRD -Continue Phoslo Social Work -Social Work Consulted: Working with medicare to obtain outpatient dialysis placement. -Monitor immigration status and DC planning -Cleared for DC by Vascular per their note. FEN Fluids: No standing fluids, limit excessive fluid intake Electrolytes: Follow as needed Nutrition: Renal Diet Dispo: Continue med/surg management. FU social work w/ goal of outpatient hemodialysis Visit type - Emergency Visit Emergency Visit: No - New Patient This patient is new to me today: No - Critical Care Critical Care patient: No - Discharge Referral Referred to [facility] Med P.C.: No - Medication Review Med list reviewed for High Risk Meds patients 65 and older: Yes ATTENDING PHYSICIAN STATEMENT I saw and evaluated the patient. I reviewed the resident's note and discussed the case with the resident. I agree with the resident's findings and plan as documented. SUBJECTIVE: OBJECTIVE: ASSESSMENT AND PLAN:
[2019-10-20] MEDS: ATORVASTATIN CA 10 MG TABLET (FP) PO SCH (21:03)
[2019-10-21] MEDS: INSULIN SLIDING SCALE (NOVOLOG) 1 VIAL SQ SCH ×4 (06:05→22:50)
[2019-10-21] MEDS: DOCUSATE SODIUM 100 MG CAPSULE (FP) PO SCH ×3 (06:06→22:49)
[2019-10-21] MEDS: CALCIUM ACETATE 667 MG CAPSULE (FP) PO SCH ×3 (08:00→18:38)
--- NOTE | 2019-10-21 08:54 | PN ---
Teaching Attending Note Name of Resident: Yan Celis ATTENDING PHYSICIAN STATEMENT I saw and evaluated the patient. I reviewed the resident's note and discussed the case with the resident. I agree with the resident's findings and plan as documented. SUBJECTIVE: No overnight events Plan for HD today OBJECTIVE: Vital Signs Period Temp Pulse Resp BP Sys/Lopes Pulse Ox Last 24 Hr 98.4 F-98.9 F 64-86 18-20 141-175/59-85 97-98 Physical exam as noted in Residents note ASSESSMENT AND PLAN: This patient is a 69yom with PMhx of HTN, T2DM , cardiomyopathy, and possible CKD , who presented with LE edema and was found to have severe diabetic nephropathy and hyperkalemia requiring HD. ESRD on HD Awaiting HD placement AVF placed by vascular Sx. Continue home medications for chronic issues Patient medically stable for discharge. Space daily labs HFrEF Continue ASA, Statin, Coreg, ARB HTN Continue Amlodipine, Hydralazine at this time Rest of plan as per resident note
[2019-10-21] MEDS: POLYETHYLENE GLYCOL 3350 119 GM BTL PO SCH ×2 (10:00→22:54)
[2019-10-21 10:54] LABS: HEMOGLOBIN 7.6 GM/dL (11.7-16.9); MCH 28.7 pg (25.7-33.7); MCHC 31.6 g/dl (32.0-35.9); MEAN CELL VOLUME 90.8 fl (80-96); MEAN PLT VOLUME 8.6 fl (7.5-11.1); PLATELET COUNT 120 K/MM3 (134-434); RBC 2.64 M/mm3 (4.00-5.60); RDW 15.3 % (11.9-15.9)
[2019-10-21] MEDS ORDERED: IRON SUCROSE INJECTION 100 MG in SODIUM CHLORIDE 95 ML IVPB ONE (11:00)
[2019-10-21] MEDS ORDERED: SODIUM CHLORIDE 250 ML IV PRN (11:00)
[2019-10-21] MEDS ORDERED: EPOETIN ALFA-EPBX 10,000 UNIT/ML VIAL IVPUSH ONE (11:00)
[2019-10-21 11:22] LABS: BLOOD UREA NITROGEN 31.4 mg/dL (7-18); CALCIUM 7.7 mg/dL (8.5-10.1); CREATININE 5.2 mg/dL (0.55-1.3); PHOSPHOROUS 3.6 mg/dL (2.5-4.9); POTASSIUM 3.3 mmol/L (3.5-5.1)
[2019-10-21] MEDS ORDERED: PT OWN MED DRAWER 7, Y5N ONE (12:39)
--- NOTE | 2019-10-21 12:54 | PN ---
Progress Note, Physician History of Present Illness: Mr. Vuong is a 69 year old male (. [facility]) with a significant past medical history of HTN, DM, CHF, and renal dysfunction, who presents to the ED with 4 months of bilateral LE edema. As per patient, he presented to the ED from the [facility] secondary to receiving inadequate care. Patient also endorses one month of intermittent shortness of breath, chest pain on exertion, bilateral kidney pain and 4 episodes of syncope last week, with head injury. Denies fever, chills, headache, nausea, vomiting, or urinary changes. - Current Medication List Current Medications: Active Medications Amlodipine Besylate (Norvasc -) 10 mg PO DAILY [facility] Last Admin: 10/20/19 11:08 Dose: 10 mg Documented by: Aspirin (Ecotrin -) 81 mg PO DAILY [facility] Last Admin: 10/20/19 11:07 Dose: 81 mg Documented by: Atorvastatin Calcium (Lipitor -) 10 mg PO HS [facility] Last Admin: 10/20/19 21:03 Dose: 10 mg Documented by: Calcium Acetate (Phoslo -) 667 mg PO TIDCM [facility] Last Admin: 10/20/19 18:58 Dose: 667 mg Documented by: Carvedilol (Coreg -) 12.5 mg PO BID [facility] Last Admin: 10/20/19 21:03 Dose: 12.5 mg Documented by: Docusate Sodium (Colace -) 100 mg PO TID [facility] Last Admin: 10/21/19 06:06 Dose: 100 mg Documented by: Fentanyl (Sublimaze Injection -) 50 mcg IVPUSH [id number] PRN PRN Reason: PAIN-PACU ORDER X 4 DOSES ONLY Last Admin: 10/13/19 18:30 Dose: 50 mcg Documented by: Hydralazine HCl (Apresoline -) 50 mg PO BID [facility] Last Admin: 10/20/19 21:03 Dose: 50 mg Documented by: Insulin Aspart (Novolog Vial Sliding Scale -) 1 vial SQ [facility]; Protocol Last Admin: 10/21/19 06:05 Dose: Not Given Documented by: Losartan Potassium (Cozaar -) 50 mg PO DAILY [facility] Last Admin: 10/20/19 11:08 Dose: 50 mg Documented by: Ondansetron HCl (Zofran Injection) 4 mg IVPUSH Q6H PRN PRN Reason: NAUSEA AND/OR VOMITING Polyethylene Glycol (Miralax (For Daily Use) -) 17 gm PO BID [facility] Last Admin: 10/20/19 21:01 Dose: Not Given Documented by: Promethazine HCl (Phenergan Injection -) 12.5 mg IVPUSH Q6H PRN PRN Reason: NAUSEA-FOR RESCUE AFTER 15 MIN Sitagliptin Phosphate (Januvia -) 25 mg PO DAILY@0700 [facility] Last Admin: 10/21/19 06:06 Dose: 25 mg Documented by: - Objective Vital Signs: Vital Signs Temperature 98.4 F 10/21/19 05:19 Pulse Rate 72 10/21/19 11:50 Respiratory Rate 18 10/21/19 11:50 Blood Pressure 157/72 10/21/19 11:50 O2 Sat by Pulse Oximetry (%) 97 10/21/19 05:19 Eyes: Yes: WNL, Conjunctiva Clear, EOM Intact HENT: Yes: WNL, Atraumatic, Normocephalic Neck: Yes: WNL, Supple, Trachea Midline Cardiovascular: Yes: WNL, Regular Rate and Rhythm Respiratory: Yes: WNL, Regular, CTA Bilaterally Gastrointestinal: Yes: WNL, Normal Bowel Sounds Genitourinary: Yes: WNL Musculoskeletal: Yes: WNL Extremities: Yes: WNL Edema: No Integumentary: Yes: WNL Neurological: Yes: WNL, Alert, Oriented ...Motor Strength: WNL Psychiatric: Yes: WNL Labs: CBC, BMP 10/21/19 10:00 10/21/19 10:00 INR, PTT INR 1.03 (0.83-1.09) 09/25/19 00:09 Problem List - Problems (1) Diabetes Code(s): E11.9 - TYPE 2 DIABETES MELLITUS WITHOUT COMPLICATIONS (2) Hyperkalemia Code(s): E87.5 - HYPERKALEMIA (3) Hypertension Code(s): I10 - ESSENTIAL (PRIMARY) HYPERTENSION (4) Kidney failure Code(s): N19 - UNSPECIFIED KIDNEY FAILURE Qualifiers: Renal failure chronicity: acute on chronic Assessment/Plan ssessment/Plan ESRD; on hemodialysis Bilateral LE edema x several months Intermittent shortness of breath Syncope x 4 recently anemia severe hyperkalemia rhabdomyolysis HTN diastolic CHF elevated TNI; stress MIBI now shows small area of mildly intense inferior ischemia EKG: NSR; ? old septal infarct ECHO: normal LVEF; abnormal diastolic compliance; mild-moderate LVH; small pericardial effusion stable s/p AV fistula Rec: Cardiacc gregory stable Cont HD
[2019-10-21] MEDS: LOSARTAN POTASSIUM 50 MG TABLET (FP) PO SCH (14:28)
[2019-10-21] MEDS: amLODIPine BESYLATE 5 MG TABLET (FP) PO SCH (14:29)
[2019-10-21] MEDS: hydrALAZINE HCL 50 MG TABLET (FP) PO SCH (14:29)
[2019-10-21] MEDS: ASPIRIN COATED 81 MG TABLET.EC PO SCH (14:30)
[2019-10-21] MEDS: CARVEDILOL 12.5 MG TABLET (FP) PO SCH ×2 (14:31→22:50)
--- NOTE | 2019-10-21 15:41 | PN ---
Physical Exam: SUBJECTIVE: Patient seen and examined no complaints today. Will go for dialysis. OBJECTIVE: Vital Signs Period Temp Pulse Resp BP Sys/Lopes Pulse Ox Last 24 Hr 98.4 F-98.9 F 64-86 16-20 151-175/66-85 95-98 GENERAL: The patient is awake, alert, and fully oriented, in no acute distress. HEAD: Normal with no signs of trauma. EYES: PERRL, extraocular movements intact NECK: Trachea midline, full range of motion, supple. LUNGS: Breath sounds equal, clear to auscultation bilaterally, no wheezes, no crackles, no accessory muscle use. HEART: Regular rate and rhythm, S1, S2 without murmur, rub or gallop. ABDOMEN: R sided CVA tenderness. Soft, nontender, nondistended, normoactive bowel sounds. EXTREMITIES: Left sided AVF notable for bruising, but decreasing. 2+ pulses, warm, well-perfused, no edema. NEUROLOGICAL: Normal speech, gait not observed. PSYCH: Normal mood, normal affect. SKIN: Warm, dry, normal turgor, no rashes or lesions noted Laboratory Results - last 24 hr CBC, BMP 10/21/19 10:00 10/21/19 10:00 Active Medications Generic Name Dose Route Start Last Admin Trade Name Freq PRN Reason Stop Dose Admin Amlodipine Besylate 10 mg 10/14/19 10:00 10/21/19 14:29 Norvasc - PO 10 mg DAILY MAT Administration Aspirin 81 mg 10/14/19 10:00 10/21/19 14:30 Ecotrin - PO 81 mg DAILY MAT Administration Atorvastatin Calcium 10 mg 10/13/19 22:00 10/20/19 21:03 Lipitor - PO 10 mg HS MAT Administration Calcium Acetate 667 mg 10/14/19 08:00 10/21/19 14:31 Phoslo - PO 667 mg TIDCM MAT Administration Carvedilol 12.5 mg 10/13/19 22:00 10/21/19 14:31 Coreg - PO 12.5 mg BID MAT Administration Docusate Sodium 100 mg 10/13/19 22:00 10/21/19 14:44 Colace - PO Not Given TID MAT Fentanyl 50 mcg 10/13/19 18:10 10/13/19 18:30 Sublimaze Injection - IVPUSH 50 mcg [id number] PRN Administration PAIN-PACU ORDER X 4 DOSES ONLY Hydralazine HCl 50 mg 10/13/19 22:00 10/21/19 14:29 Apresoline - PO 50 mg BID MAT Administration Insulin Aspart 1 vial 10/13/19 22:00 10/21/19 11:00 Novolog Vial Sliding Scale - SQ Not Given ACHS [facility] Protocol Losartan Potassium 50 mg 10/20/19 10:45 10/21/19 14:28 Cozaar - PO 50 mg DAILY MAT Administration Ondansetron HCl 4 mg 10/13/19 18:10 Zofran Injection IVPUSH Q6H PRN NAUSEA AND/OR VOMITING Polyethylene Glycol 17 gm 10/13/19 22:00 10/21/19 10:00 Miralax (For Daily Use) - PO Not Given BID MAT Promethazine HCl 12.5 mg 10/13/19 18:10 Phenergan Injection - IVPUSH Q6H PRN NAUSEA-FOR RESCUE AFTER 15 MIN Sitagliptin Phosphate 25 mg 10/14/19 07:00 10/21/19 06:06 Januvia - PO 25 mg DAILY@0700 MAT Administration ASSESSMENT/PLAN: 69 yo M citizen of , currently visiting his nephew and undocumented in the [place], with PMHx of hypertension, non-insulin dependent Diabetes Mellitus, Cardiomyopathy w/ preserved EF, and CKD, presented to the ED with SoB, syncope, LE edema and was noted to have severe diabetic nephropathy and hyperkalemia requiring HD. Permacath placement was performed, and dialysis achieved, subsequently, a left AVF was placed by the Vascular Team. ESRD likely secondary to severe untreated diabetic nephropathy -AVF Placed on 10/12 -(10/15): site is tender to palpation, will continue to assess -(10/17): Site has increased bruising -(10/18): Bruising has decreased -Permacath remains in place Chronic Anemia likely 2/2 CKD -Epo Alpha DC'd by Nephrology -One dose Iron sucrose given -Monitor Hgb 7.6 Today (10/19) Acute on Likely Chronic Diastolic CHF (Poor Medical Treatment/Records, as ptn was previously treated in [place]) -ECHO: EF: 60-65% -LA mildly dilated Hx of HTN -(9.4)BP elevated: Consider increasing dose -Continue Amlodine -Continue Coreg -Continue Hydralazine: Changed to 35 TID from 50BID for better control. -Continue ASA DM -Previously on Metformin, will DC on discharge 2/2 CKD and risk of LA -Januvia 25mg qdaily -Atorvastatin 2/2 DM and Cardiac Risk Factor Equivalent -ISS w/ BGM Hypocalcemia 2/2 ESRD -Continue Phoslo Hypokalemia -Monitor K+ -Replete as needed Social Work -Social Work Consulted: Working with medicare to obtain outpatient dialysis placement. -Monitor immigration status and DC planning -Cleared for DC by Vascular per their note. FEN Fluids: No standing fluids, limit excessive fluid intake Electrolytes: Follow as needed Nutrition: Renal Diet Dispo: Continue med/surg management. FU social work w/ goal of outpatient hemodialysis Visit type - Emergency Visit Emergency Visit: No - New Patient This patient is new to me today: No - Critical Care Critical Care patient: No - Discharge Referral Referred to [facility] Med P.C.: No - Medication Review Med list reviewed for High Risk Meds patients 65 and older: Yes ATTENDING PHYSICIAN STATEMENT I saw and evaluated the patient. I reviewed the resident's note and discussed the case with the resident. I agree with the resident's findings and plan as documented. SUBJECTIVE: OBJECTIVE: ASSESSMENT AND PLAN:
--- NOTE | 2019-10-21 19:28 | PN ---
Progress Note, Physician Chief Complaint: Renal failure History of Present Illness: Seen and examined at the bedside awake and alert offers no acute complaints no sob, cp, fever, chills s/p dialysis this morning tolerated 1L UF catheter working well - Current Medication List Current Medications: Active Medications Amlodipine Besylate (Norvasc -) 10 mg PO DAILY [facility] Last Admin: 10/21/19 14:29 Dose: 10 mg Documented by: Aspirin (Ecotrin -) 81 mg PO DAILY [facility] Last Admin: 10/21/19 14:30 Dose: 81 mg Documented by: Atorvastatin Calcium (Lipitor -) 10 mg PO HS [facility] Last Admin: 10/20/19 21:03 Dose: 10 mg Documented by: Calcium Acetate (Phoslo -) 667 mg PO TIDCM [facility] Last Admin: 10/21/19 18:38 Dose: 667 mg Documented by: Carvedilol (Coreg -) 12.5 mg PO BID [facility] Last Admin: 10/21/19 14:31 Dose: 12.5 mg Documented by: Docusate Sodium (Colace -) 100 mg PO TID [facility] Last Admin: 10/21/19 14:44 Dose: Not Given Documented by: Fentanyl (Sublimaze Injection -) 50 mcg IVPUSH [id number] PRN PRN Reason: PAIN-PACU ORDER X 4 DOSES ONLY Last Admin: 10/13/19 18:30 Dose: 50 mcg Documented by: Hydralazine HCl 25 mg/ (Hydralazine HCl 10 mg) 35 mg PO TID [facility] Insulin Aspart (Novolog Vial Sliding Scale -) 1 vial SQ [facility]; Protocol Last Admin: 10/21/19 16:56 Dose: Not Given Documented by: Losartan Potassium (Cozaar -) 50 mg PO DAILY [facility] Last Admin: 10/21/19 14:28 Dose: 50 mg Documented by: Ondansetron HCl (Zofran Injection) 4 mg IVPUSH Q6H PRN PRN Reason: NAUSEA AND/OR VOMITING Polyethylene Glycol (Miralax (For Daily Use) -) 17 gm PO BID [facility] Last Admin: 10/21/19 10:00 Dose: Not Given Documented by: Promethazine HCl (Phenergan Injection -) 12.5 mg IVPUSH Q6H PRN PRN Reason: NAUSEA-FOR RESCUE AFTER 15 MIN Sitagliptin Phosphate (Januvia -) 25 mg PO DAILY@0700 [facility] Last Admin: 10/21/19 06:06 Dose: 25 mg Documented by: - Objective Vital Signs: Vital Signs Temperature 98.9 F 10/21/19 15:23 Pulse Rate 79 10/21/19 15:23 Respiratory Rate 16 10/21/19 15:23 Blood Pressure 169/68 10/21/19 15:23 O2 Sat by Pulse Oximetry (%) 95 10/21/19 15:23 Constitutional: Yes: No Distress, Calm HENT: Yes: Atraumatic Neck: Yes: Supple Cardiovascular: Yes: Regular Rate and Rhythm Respiratory: Yes: Regular, CTA Bilaterally Gastrointestinal: Yes: Soft Extremities: No: Cold, Cool, Cyanosis Edema: No Neurological: Yes: Alert, Oriented Labs: CBC, BMP 10/21/19 10:00 10/21/19 10:00 INR, PTT INR 1.03 (0.83-1.09) 09/25/19 00:09 Assessment/Plan 69 year old male with history of hypertension, non-insulin dependent DM, cardiomyopathy, and possible CKD who came from the [facility] and presented to the ED with complaints of leg swelling and syncope and found to have renal failure and hyperkalemia. 1. ESRD requiring dialysis secondary to severe diabetic nephropathy (biopsy proven) 2. Hyperkalemia now resolved 3. Volume overload 4. Metabolic acidosis 5. Anemia 6. Hypertension 7. DM not on insulin 9. Cardiomyopathy Tolerated dialysis well today next planned dialysis on Thursday. continue Hd 3x weekly for ESRD from diabetic nephropathy s/p AVF placement per vascular, currently using tunneled HD catheter until AVF is mature Still awaiting insurance authorization for outpatient dialysis placement. SOPHIE give with dialysis for anemia Renal diet Continue Losartan 50mg daily for additional BP control, titrate for goal BP < 140/90 Discharge once outpatient dialysis is secured. Thank you Luiz Galdamez DO
[2019-10-21] MEDS ORDERED: hydrALAZINE HCL 50 MG TABLET (FP) PO SCH (22:00)
[2019-10-21] MEDS ORDERED: hydrALAZINE HCL 25 MG TABLET (FP) ONE (22:37)
[2019-10-21] MEDS ORDERED: hydrALAZINE HCL 10 MG TABLET ONE (22:37)
[2019-10-21] MEDS: hydrALAZINE HCL 25 MG, hydrALAZINE HCL 10 MG PO SCH (22:49)
[2019-10-21] MEDS: ATORVASTATIN CA 10 MG TABLET (FP) PO SCH (22:50)
[2019-10-22] MEDS ORDERED: hydrALAZINE HCL 25 MG TABLET (FP) ONE ×3 (06:25→20:40)
[2019-10-22] MEDS ORDERED: hydrALAZINE HCL 10 MG TABLET ONE ×3 (06:25→20:40)
[2019-10-22] MEDS: DOCUSATE SODIUM 100 MG CAPSULE (FP) PO SCH ×3 (06:26→21:19)
[2019-10-22] MEDS: hydrALAZINE HCL 25 MG, hydrALAZINE HCL 10 MG PO SCH ×3 (06:26→21:20)
[2019-10-22] MEDS: INSULIN SLIDING SCALE (NOVOLOG) 1 VIAL SQ SCH ×4 (06:27→21:20)
[2019-10-22 08:34] LABS: BASO % 0.9 % (0-2.0); EOS % 5.5 % (0-4.5); HEMATOCRIT 32.4 % (35.4-49); HEMOGLOBIN 10.6 GM/dL (11.7-16.9); LYMPH % 17.9 % (8-40); MCH 29.8 pg (25.7-33.7); MCHC 32.7 g/dl (32.0-35.9); MEAN CELL VOLUME 91.1 fl (80-96); MEAN PLT VOLUME 9.1 fl (7.5-11.1); MONO % 12.7 % (3.8-10.2); PLATELET COUNT 161 K/MM3 (134-434); RBC 3.56 M/mm3 (4.00-5.60); RDW 15.6 % (11.9-15.9); WHITE BLOOD COUNT 5.4 K/mm3 (4.0-10.0)
[2019-10-22] MEDS: ASPIRIN COATED 81 MG TABLET.EC PO SCH ×2 (08:55→09:23)
[2019-10-22] MEDS: CALCIUM ACETATE 667 MG CAPSULE (FP) PO SCH ×3 (08:55→16:37)
[2019-10-22] MEDS: CARVEDILOL 12.5 MG TABLET (FP) PO SCH ×3 (08:55→21:20)
[2019-10-22] MEDS: amLODIPine BESYLATE 5 MG TABLET (FP) PO SCH ×2 (08:55→09:23)
[2019-10-22 09:05] LABS: BLOOD UREA NITROGEN 27.6 mg/dL (7-18); CALCIUM 9.2 mg/dL (8.5-10.1); CREATININE 5.2 mg/dL (0.55-1.3); POTASSIUM 3.7 mmol/L (3.5-5.1)
[2019-10-22] MEDS: POLYETHYLENE GLYCOL 3350 119 GM BTL PO SCH ×2 (09:43→21:20)
[2019-10-22] MEDS: LOSARTAN POTASSIUM 50 MG TABLET (FP) PO SCH (09:43)
--- NOTE | 2019-10-22 10:44 | PN ---
Progress Note, Physician History of Present Illness: Mr. Vuong is a 69 year old male (. [facility]) with a significant past medical history of HTN, DM, CHF, and renal dysfunction, who presents to the ED with 4 months of bilateral LE edema. As per patient, he presented to the ED from the [facility] secondary to receiving inadequate care. Patient also endorses one month of intermittent shortness of breath, chest pain on exertion, bilateral kidney pain and 4 episodes of syncope last week, with head injury. Denies fever, chills, headache, nausea, vomiting, or urinary changes. - Current Medication List Current Medications: Active Medications Amlodipine Besylate (Norvasc -) 10 mg PO DAILY [facility] Last Admin: 10/22/19 09:23 Dose: Not Given Documented by: Aspirin (Ecotrin -) 81 mg PO DAILY [facility] Last Admin: 10/22/19 09:23 Dose: Not Given Documented by: Atorvastatin Calcium (Lipitor -) 10 mg PO HS [facility] Last Admin: 10/21/19 22:50 Dose: 10 mg Documented by: Calcium Acetate (Phoslo -) 667 mg PO TIDCM [facility] Last Admin: 10/22/19 08:55 Dose: 667 mg Documented by: Carvedilol (Coreg -) 12.5 mg PO BID [facility] Last Admin: 10/22/19 09:23 Dose: Not Given Documented by: Docusate Sodium (Colace -) 100 mg PO TID [facility] Last Admin: 10/22/19 06:26 Dose: 100 mg Documented by: Fentanyl (Sublimaze Injection -) 50 mcg IVPUSH [id number] PRN PRN Reason: PAIN-PACU ORDER X 4 DOSES ONLY Last Admin: 10/13/19 18:30 Dose: 50 mcg Documented by: Hydralazine HCl 25 mg/ (Hydralazine HCl 10 mg) 35 mg PO TID [facility] Last Admin: 10/22/19 06:26 Dose: 35 mg Documented by: Insulin Aspart (Novolog Vial Sliding Scale -) 1 vial SQ [facility]; Protocol Last Admin: 10/22/19 06:27 Dose: Not Given Documented by: Losartan Potassium (Cozaar -) 50 mg PO DAILY [facility] Last Admin: 10/22/19 09:43 Dose: 50 mg Documented by: Ondansetron HCl (Zofran Injection) 4 mg IVPUSH Q6H PRN PRN Reason: NAUSEA AND/OR VOMITING Polyethylene Glycol (Miralax (For Daily Use) -) 17 gm PO BID [facility] Last Admin: 10/22/19 09:43 Dose: 17 gm Documented by: Promethazine HCl (Phenergan Injection -) 12.5 mg IVPUSH Q6H PRN PRN Reason: NAUSEA-FOR RESCUE AFTER 15 MIN Sitagliptin Phosphate (Januvia -) 25 mg PO DAILY@0700 [facility] Last Admin: 10/22/19 06:26 Dose: 25 mg Documented by: - Objective Vital Signs: Vital Signs Temperature 98.9 F 10/22/19 08:58 Pulse Rate 74 10/22/19 08:58 Respiratory Rate 18 10/22/19 09:00 Blood Pressure 141/62 10/22/19 08:58 O2 Sat by Pulse Oximetry (%) 97 10/22/19 09:00 Eyes: Yes: WNL, Conjunctiva Clear, EOM Intact HENT: Yes: WNL, Atraumatic, Normocephalic Neck: Yes: WNL, Supple, Trachea Midline Cardiovascular: Yes: WNL, Regular Rate and Rhythm Respiratory: Yes: WNL, Regular, CTA Bilaterally Gastrointestinal: Yes: WNL, Normal Bowel Sounds Genitourinary: Yes: WNL Musculoskeletal: Yes: WNL Extremities: Yes: WNL Edema: No Integumentary: Yes: WNL Neurological: Yes: WNL, Alert, Oriented ...Motor Strength: WNL Psychiatric: Yes: WNL Labs: CBC, BMP 10/22/19 08:10 10/22/19 08:10 INR, PTT INR 1.03 (0.83-1.09) 09/25/19 00:09 Problem List - Problems (1) Diabetes Code(s): E11.9 - TYPE 2 DIABETES MELLITUS WITHOUT COMPLICATIONS (2) Hyperkalemia Code(s): E87.5 - HYPERKALEMIA (3) Hypertension Code(s): I10 - ESSENTIAL (PRIMARY) HYPERTENSION (4) Kidney failure Code(s): N19 - UNSPECIFIED KIDNEY FAILURE Qualifiers: Renal failure chronicity: acute on chronic Assessment/Plan ssessment/Plan ESRD; on hemodialysis Bilateral LE edema x several months Intermittent shortness of breath Syncope x 4 recently anemia severe hyperkalemia rhabdomyolysis HTN diastolic CHF elevated TNI; stress MIBI now shows small area of mildly intense inferior ischemia EKG: NSR; ? old septal infarct ECHO: normal LVEF; abnormal diastolic compliance; mild-moderate LVH; small pericardial effusion stable s/p AV fistula Rec: Cardiacc gregory stable Cont HD
--- NOTE | 2019-10-22 13:21 | PN ---
Physical Exam: SUBJECTIVE: Patient seen and examined at bedside. No acute events overnight. No concerns or complaints this morning. OBJECTIVE: Vital Signs Period Temp Pulse Resp BP Sys/Lopes Pulse Ox Last 24 Hr 98.6 F-98.9 F 69-79 16-20 141-169/59-70 94-97 GENERAL: AAOx3, in no acute distress HEENT: NCAT, PERRLA, EOMI, sclera anicteric, conjunctiva clear, oropharynx clear w/o exudates. MMM. NECK: Normal ROM, supple, no lymphadenopathy, JVD, or masses LUNGS: CTABL no wheezes/ rhonchi/ rales. No distress, speaks in full sentences. No increased work of breathing. HEART: RRR, normal S1 S2, no M/R/G, peripheral pulses 2+ and equal b/l ABDOMEN: Soft, NTND, + BS. No guarding or rebound. No hepatomegaly or splen omegaly. MSK: ROM WNL EXTREMITIES: Normal inspection. No peripheral edema. No clubbing or cyanosis. Left sided AVF NEUROLOGICAL: CN II-XII intact. Normal speech, normal gait, no focal sensorimotor deficits. SKIN: Warm, Dry, normal turgor, no rashes or lesions noted Laboratory Results - last 24 hr CBC, BMP 10/22/19 08:10 10/22/19 08:10 10/21/19 10/21/19 10/22/19 16:55 22:46 06:21 WBC RBC Hgb Hct MCV MCH MCHC RDW Plt Count MPV Absolute Neuts (auto) Neutrophils % Lymphocytes % Monocytes % Eosinophils % Basophils % Nucleated RBC % Sodium Potassium Chloride Carbon Dioxide Anion Gap BUN Creatinine Est GFR (CKD-EPI)AfAm Est GFR (CKD-EPI)NonAf POC Glucometer 145 190 137 Random Glucose Calcium 10/22/19 10/22/19 10/22/19 08:10 08:10 11:34 WBC 5.4 RBC 3.56 L Hgb 10.6 L Hct 32.4 L D MCV 91.1 MCH 29.8 MCHC 32.7 RDW 15.6 Plt Count 161 D MPV 9.1 Absolute Neuts (auto) 3.4 Neutrophils % 63.0 Lymphocytes % 17.9 Monocytes % 12.7 H Eosinophils % 5.5 H Basophils % 0.9 Nucleated RBC % 0 Sodium 140 Potassium 3.7 Chloride 102 Carbon Dioxide 30 Anion Gap 8 BUN 27.6 H Creatinine 5.2 H Est GFR (CKD-EPI)AfAm 12.16 Est GFR (CKD-EPI)NonAf 10.49 POC Glucometer 261 Random Glucose 180 H Calcium 9.2 Active Medications Generic Name Dose Route Start Last Admin Trade Name Freq PRN Reason Stop Dose Admin Amlodipine Besylate 10 mg 10/14/19 10:00 10/22/19 09:23 Norvasc - PO Not Given DAILY [facility] Aspirin 81 mg 10/14/19 10:00 10/22/19 09:23 Ecotrin - PO Not Given DAILY MAT Atorvastatin Calcium 10 mg 10/13/19 22:00 10/21/19 22:50 Lipitor - PO 10 mg HS MAT Administration Calcium Acetate 667 mg 10/14/19 08:00 10/22/19 11:37 Phoslo - PO 667 mg TIDCM MAT Administration Carvedilol 12.5 mg 10/13/19 22:00 10/22/19 09:23 Coreg - PO Not Given BID [facility] Docusate Sodium 100 mg 10/13/19 22:00 10/22/19 06:26 Colace - PO 100 mg TID MAT Administration Fentanyl 50 mcg 10/13/19 18:10 10/13/19 18:30 Sublimaze Injection - IVPUSH 50 mcg [id number] PRN Administration PAIN-PACU ORDER X 4 DOSES ONLY Hydralazine HCl 25 mg/ 35 mg 10/21/19 22:00 10/22/19 06:26 Hydralazine HCl 10 mg PO 35 mg TID MAT Administration Insulin Aspart 1 vial 10/13/19 22:00 10/22/19 11:36 Novolog Vial Sliding Scale - SQ 6 units ACHS MAT Administration Protocol Losartan Potassium 50 mg 10/20/19 10:45 10/22/19 09:43 Cozaar - PO 50 mg DAILY MAT Administration Ondansetron HCl 4 mg 10/13/19 18:10 Zofran Injection IVPUSH Q6H PRN NAUSEA AND/OR VOMITING Polyethylene Glycol 17 gm 10/13/19 22:00 10/22/19 09:43 Miralax (For Daily Use) - PO 17 gm BID MAT Administration Promethazine HCl 12.5 mg 10/13/19 18:10 Phenergan Injection - IVPUSH Q6H PRN NAUSEA-FOR RESCUE AFTER 15 MIN Sitagliptin Phosphate 25 mg 10/14/19 07:00 10/22/19 06:26 Januvia - PO 25 mg DAILY@0700 MAT Administration ASSESSMENT/PLAN: 69 yo M from [facility] with PMHx of hypertension, non-insulin dependent Diabetes Mellitus, Cardiomyopathy w/ preserved EF, and CKD, presented to the ED with SoB, syncope, LE edema and was admitted for severe diabetic nephropathy and hyperkalemia requiring HD. Permacath placement was performed, and dialysis achieved, subsequently, a left AVF was placed by the Vascular Team. #ESRD likely secondary to severe untreated diabetic nephropathy -AVF Placed on 10/12 -Permacath remains in place #Chronic Anemia likely 2/2 CKD -Epo Alpha d/c by Nephrology -One dose Iron sucrose given -continue to monitor Hgb #Acute on Likely Chronic Diastolic CHF -ECHO: EF: 60-65% -LA mildly dilated #Hx of HTN -continue to monitor BP -Continue Amlodine -Continue Coreg -Continue Hydralazine -Continue ASA #DM -Previously on Metformin, will DC on discharge 2/2 CKD and risk of LA -Januvia 25mg qdaily -Atorvastatin 2/2 DM and Cardiac Risk Factor Equivalent -ISS w/ BGM #Hypocalcemia 2/2 ESRD -Continue Phoslo #Hypokalemia -Monitor K+ -Replete as needed #Social Work -Social Work Consulted: Working with medicare to obtain outpatient dialysis placement. -Monitor placement status and DC planning -Cleared for DC by Vascular per their note. #FEN Fluids: No standing fluids, limit excessive fluid intake Electrolytes: Follow as needed Nutrition: Renal Diet Dispo: Continue m/s management. FU social work w/ goal of outpatient hemodialysis Visit type - Emergency Visit Emergency Visit: No - New Patient This patient is new to me today: Yes Date on this admission: 10/22/19 - Critical Care Critical Care patient: No - Medication Review Med list reviewed for High Risk Meds patients 65 and older: Yes ATTENDING PHYSICIAN STATEMENT I saw and evaluated the patient. I reviewed the resident's note and discussed the case with the resident. I agree with the resident's findings and plan as documented. SUBJECTIVE: OBJECTIVE: ASSESSMENT AND PLAN:
--- NOTE | 2019-10-22 15:07 | PN ---
Teaching Attending Note Name of Resident: Minh Buchanan ATTENDING PHYSICIAN STATEMENT I saw and evaluated the patient. I reviewed the resident's note and discussed the case with the resident. I agree with the resident's findings and plan as documented. SUBJECTIVE: No new complaints OBJECTIVE: Vital Signs Period Temp Pulse Resp BP Sys/Lopes Pulse Ox Last 24 Hr 98.6 F-99.2 F 65-79 16-18 135-169/59-70 94-97 Patient is comfortable HEENT normal Neck supple no JVD Lungs clear no wheezing Abdomen nontender no organomegaly bowel sounds normal Extremities no edema no cyanosis normal pulses Neurologically he is alert awake oriented, nonfocal Skin no rash noted ASSESSMENT AND PLAN: 69 yo M from [facility] with PMHx of hypertension, non-insulin dependent Diabetes Mellitus, Cardiomyopathy w/ preserved EF, and CKD, presented to the ED with SoB, syncope, LE edema and was admitted for severe diabetic nephropathy and hyperkalemia requiring HD. Permacath placement was performed, and dialysis achieved, subsequently, a left AVF was placed by the Vascular Team. #ESRD likely secondary to severe untreated diabetic nephropathy -AVF Placed on 10/12 -Permacath remains in place #Chronic Anemia likely 2/2 CKD -Epo Alpha d/c by Nephrology -One dose Iron sucrose given -continue to monitor Hgb #Acute on Likely Chronic Diastolic CHF -ECHO: EF: 60-65% -LA mildly dilated #Hx of HTN -continue to monitor BP -Continue Amlodine -Continue Coreg -Continue Hydralazine -Continue ASA #DM -Previously on Metformin, will DC on discharge 2/2 CKD and risk of LA -Januvia 25mg qdaily -Atorvastatin 2/2 DM and Cardiac Risk Factor Equivalent -ISS w/ BGM #Hypocalcemia 2/2 ESRD -Continue Phoslo #Hypokalemia -Monitor K+ -Replete as needed #Social Work -Social Work Consulted: Working with medicare to obtain outpatient dialysis placement. -Monitor placement status and DC planning -Cleared for DC by Vascular per their note. #FEN Fluids: No standing fluids, limit excessive fluid intake Electrolytes: Follow as needed Nutrition: Renal Diet Dispo: Continue m/s management. FU social work w/ goal of outpatient hemodialysis
[2019-10-22] MEDS: ATORVASTATIN CA 10 MG TABLET (FP) PO SCH (21:19)
[2019-10-23] MEDS ORDERED: hydrALAZINE HCL 25 MG TABLET (FP) ONE ×3 (06:09→21:06)
[2019-10-23] MEDS ORDERED: hydrALAZINE HCL 10 MG TABLET ONE ×3 (06:09→21:06)
[2019-10-23] MEDS: hydrALAZINE HCL 25 MG, hydrALAZINE HCL 10 MG PO SCH ×3 (06:16→21:18)
[2019-10-23] MEDS: INSULIN SLIDING SCALE (NOVOLOG) 1 VIAL SQ SCH ×4 (06:16→21:21)
[2019-10-23] MEDS: DOCUSATE SODIUM 100 MG CAPSULE (FP) PO SCH ×3 (06:16→21:18)
[2019-10-23 07:54] LABS: BASO % 0.8 % (0-2.0); EOS % 5.9 % (0-4.5); HEMATOCRIT 30.5 % (35.4-49); LYMPH % 17.7 % (8-40); MCH 30.2 pg (25.7-33.7); MCHC 32.9 g/dl (32.0-35.9); MEAN CELL VOLUME 91.7 fl (80-96); MEAN PLT VOLUME 8.9 fl (7.5-11.1); NEUT % 64.6 % (42.8-82.8); PLATELET COUNT 149 K/MM3 (134-434); RBC 3.32 M/mm3 (4.00-5.60); RDW 15.7 % (11.9-15.9)
[2019-10-23 08:24] LABS: ALBUMIN 3.4 g/dl (3.4-5.0); BILIRUBIN,TOTAL 0.7 mg/dL (0.2-1); BLOOD UREA NITROGEN 43.5 mg/dL (7-18); CALCIUM 9.4 mg/dL (8.5-10.1); CREATININE 6.7 mg/dL (0.55-1.3); MAGNESIUM 2.2 mg/dL (1.8-2.4); PHOSPHOROUS 4.5 mg/dL (2.5-4.9); POTASSIUM 3.9 mmol/L (3.5-5.1); TOT PROT 6.8 g/dl (6.4-8.2)
--- NOTE | 2019-10-23 08:48 | PN ---
Progress Note, Physician History of Present Illness: Mr. Vuong is a 69 year old male ([facility]) with a significant past medical history of HTN, DM, CHF, and renal dysfunction, who presents to the ED with 4 months of bilateral LE edema. As per patient, he presented to the ED from the [facility] secondary to receiving inadequate care. Patient also endorses one month of intermittent shortness of breath, chest pain on exertion, bilateral kidney pain and 4 episodes of syncope last week, with head injury. Denies fever, chills, headache, nausea, vomiting, or urinary changes. - Current Medication List Current Medications: Active Medications Amlodipine Besylate (Norvasc -) 10 mg PO DAILY [facility] Last Admin: 10/22/19 09:23 Dose: Not Given Documented by: Aspirin (Ecotrin -) 81 mg PO DAILY [facility] Last Admin: 10/22/19 09:23 Dose: Not Given Documented by: Atorvastatin Calcium (Lipitor -) 10 mg PO HS [facility] Last Admin: 10/22/19 21:19 Dose: 10 mg Documented by: Calcium Acetate (Phoslo -) 667 mg PO TIDCM [facility] Last Admin: 10/22/19 16:37 Dose: 667 mg Documented by: Carvedilol (Coreg -) 12.5 mg PO BID [facility] Last Admin: 10/22/19 21:20 Dose: 12.5 mg Documented by: Docusate Sodium (Colace -) 100 mg PO TID [facility] Last Admin: 10/23/19 06:16 Dose: 100 mg Documented by: Fentanyl (Sublimaze Injection -) 50 mcg IVPUSH [id number] PRN PRN Reason: PAIN-PACU ORDER X 4 DOSES ONLY Last Admin: 10/13/19 18:30 Dose: 50 mcg Documented by: Hydralazine HCl 25 mg/ (Hydralazine HCl 10 mg) 35 mg PO TID [facility] Last Admin: 10/23/19 06:16 Dose: 35 mg Documented by: Insulin Aspart (Novolog Vial Sliding Scale -) 1 vial SQ [facility]; Protocol Last Admin: 10/23/19 06:16 Dose: Not Given Documented by: Losartan Potassium (Cozaar -) 50 mg PO DAILY [facility] Last Admin: 10/22/19 09:43 Dose: 50 mg Documented by: Ondansetron HCl (Zofran Injection) 4 mg IVPUSH Q6H PRN PRN Reason: NAUSEA AND/OR VOMITING Polyethylene Glycol (Miralax (For Daily Use) -) 17 gm PO BID [facility] Last Admin: 10/22/19 21:20 Dose: Not Given Documented by: Promethazine HCl (Phenergan Injection -) 12.5 mg IVPUSH Q6H PRN PRN Reason: NAUSEA-FOR RESCUE AFTER 15 MIN Sitagliptin Phosphate (Januvia -) 25 mg PO DAILY@0700 [facility] Last Admin: 10/23/19 06:16 Dose: 25 mg Documented by: - Objective Vital Signs: Vital Signs Temperature 98.3 F 10/23/19 06:17 Pulse Rate 77 10/23/19 06:17 Respiratory Rate 18 10/23/19 06:17 Blood Pressure 147/68 10/23/19 06:17 O2 Sat by Pulse Oximetry (%) 96 10/23/19 06:17 Eyes: Yes: WNL, Conjunctiva Clear, EOM Intact HENT: Yes: WNL, Atraumatic, Normocephalic Neck: Yes: WNL, Supple, Trachea Midline Cardiovascular: Yes: WNL, Regular Rate and Rhythm Respiratory: Yes: WNL, Regular, CTA Bilaterally Gastrointestinal: Yes: WNL, Normal Bowel Sounds Genitourinary: Yes: WNL Musculoskeletal: Yes: WNL Extremities: Yes: WNL Edema: No Integumentary: Yes: WNL Neurological: Yes: WNL, Alert, Oriented ...Motor Strength: WNL Psychiatric: Yes: WNL Labs: CBC, BMP 10/23/19 07:05 10/23/19 07:05 INR, PTT INR 1.03 (0.83-1.09) 09/25/19 00:09 Problem List - Problems (1) Diabetes Code(s): E11.9 - TYPE 2 DIABETES MELLITUS WITHOUT COMPLICATIONS (2) Hyperkalemia Code(s): E87.5 - HYPERKALEMIA (3) Hypertension Code(s): I10 - ESSENTIAL (PRIMARY) HYPERTENSION (4) Kidney failure Code(s): N19 - UNSPECIFIED KIDNEY FAILURE Qualifiers: Renal failure chronicity: acute on chronic Assessment/Plan ssessment/Plan ESRD; on hemodialysis Bilateral LE edema x several months Intermittent shortness of breath Syncope x 4 recently anemia severe hyperkalemia rhabdomyolysis HTN diastolic CHF elevated TNI; stress MIBI now shows small area of mildly intense inferior ischemia EKG: NSR; ? old septal infarct ECHO: normal LVEF; abnormal diastolic compliance; mild-moderate LVH; small pericardial effusion stable s/p AV fistula Rec: Cardiacc gregory stable Cont HD
[2019-10-23] MEDS: LOSARTAN POTASSIUM 50 MG TABLET (FP) PO SCH (09:01)
[2019-10-23] MEDS: CARVEDILOL 12.5 MG TABLET (FP) PO SCH ×2 (09:01→21:18)
[2019-10-23] MEDS: POLYETHYLENE GLYCOL 3350 119 GM BTL PO SCH ×2 (09:01→21:18)
[2019-10-23] MEDS: amLODIPine BESYLATE 5 MG TABLET (FP) PO SCH (09:01)
[2019-10-23] MEDS: ASPIRIN COATED 81 MG TABLET.EC PO SCH (09:01)
[2019-10-23] MEDS: CALCIUM ACETATE 667 MG CAPSULE (FP) PO SCH ×3 (09:01→16:58)
[2019-10-23] MEDS ORDERED: INSULIN (NOVOLOG) ASPART 100 UNITS/ML 10ML VIAL ONE ×2 (11:18→21:06)
--- NOTE | 2019-10-23 12:53 | PN ---
Physical Exam: SUBJECTIVE: Patient seen and examined No new complaints of OBJECTIVE: Vital Signs Period Temp Pulse Resp BP Sys/Lopes Pulse Ox Last 24 Hr 98 F-99.2 F 65-79 18-18 123-154/60-76 95-100 Patient is comfortable HEENT normal Neck supple no JVD Lungs clear no wheezing Heart examination, normal heart sounds no arrhythmia. Abdomen nontender no organomegaly bowel sounds normal Extremities no edema no cyanosis normal pulses Neurologically he is alert awake oriented, nonfocal Skin no rash noted Laboratory Results - last 24 hr 10/22/19 10/22/19 10/23/19 16:37 20:48 06:13 WBC RBC Hgb Hct MCV MCH MCHC RDW Plt Count MPV Absolute Neuts (auto) Neutrophils % Lymphocytes % Monocytes % Eosinophils % Basophils % Nucleated RBC % Sodium Potassium Chloride Carbon Dioxide Anion Gap BUN Creatinine Est GFR (CKD-EPI)AfAm Est GFR (CKD-EPI)NonAf POC Glucometer 119 193 136 Random Glucose Calcium Phosphorus Magnesium Total Bilirubin AST ALT Alkaline Phosphatase Total Protein Albumin 10/23/19 10/23/19 10/23/19 07:05 07:05 11:07 WBC 6.0 RBC 3.32 L Hgb 10.0 L Hct 30.5 L MCV 91.7 MCH 30.2 MCHC 32.9 RDW 15.7 Plt Count 149 MPV 8.9 Absolute Neuts (auto) 3.9 Neutrophils % 64.6 Lymphocytes % 17.7 Monocytes % 11.0 H Eosinophils % 5.9 H Basophils % 0.8 Nucleated RBC % 0 Sodium 139 Potassium 3.9 Chloride 100 Carbon Dioxide 29 Anion Gap 9 BUN 43.5 H Creatinine 6.7 H Est GFR (CKD-EPI)AfAm 8.95 Est GFR (CKD-EPI)NonAf 7.72 POC Glucometer 174 Random Glucose 153 H Calcium 9.4 Phosphorus 4.5 Magnesium 2.2 Total Bilirubin 0.7 AST 20 ALT 40 Alkaline Phosphatase 63 Total Protein 6.8 Albumin 3.4 Active Medications Generic Name Dose Route Start Last Admin Trade Name Freq PRN Reason Stop Dose Admin Amlodipine Besylate 10 mg 10/14/19 10:00 10/23/19 09:01 Norvasc - PO 10 mg DAILY [facility] Administration Aspirin 81 mg 10/14/19 10:00 10/23/19 09:01 Ecotrin - PO 81 mg DAILY [facility] Administration Atorvastatin Calcium 10 mg 10/13/19 22:00 10/22/19 21:19 Lipitor - PO 10 mg HS [facility] Administration Calcium Acetate 667 mg 10/14/19 08:00 10/23/19 11:50 Phoslo - PO 667 mg TIDCM [facility] Administration Carvedilol 12.5 mg 10/13/19 22:00 10/23/19 09:01 Coreg - PO 12.5 mg BID [facility] Administration Docusate Sodium 100 mg 10/13/19 22:00 10/23/19 06:16 Colace - PO 100 mg TID [facility] Administration Fentanyl 50 mcg 10/13/19 18:10 10/13/19 18:30 Sublimaze Injection - IVPUSH 50 mcg [id number] PRN Administration PAIN-PACU ORDER X 4 DOSES ONLY Hydralazine HCl 25 mg/ 35 mg 10/21/19 22:00 10/23/19 06:16 Hydralazine HCl 10 mg PO 35 mg TID [facility] Administration Sodium Chloride 250 mls @ 3,000 mls/hr 10/23/19 11:36 Normal Saline - IV 10/24/19 11:36 PRN PRN Hypotension during Dialysis Insulin Aspart 1 vial 10/13/19 22:00 10/23/19 11:38 Novolog Vial Sliding Scale - SQ 2 units ACHS MAT Administration Protocol Losartan Potassium 50 mg 10/20/19 10:45 10/23/19 09:01 Cozaar - PO 50 mg DAILY [facility] Administration Ondansetron HCl 4 mg 10/13/19 18:10 Zofran Injection IVPUSH Q6H PRN NAUSEA AND/OR VOMITING Polyethylene Glycol 17 gm 10/13/19 22:00 10/23/19 09:01 Miralax (For Daily Use) - PO 17 gm BID [facility] Administration Promethazine HCl 12.5 mg 10/13/19 18:10 Phenergan Injection - IVPUSH Q6H PRN NAUSEA-FOR RESCUE AFTER 15 MIN Sitagliptin Phosphate 25 mg 10/14/19 07:00 10/23/19 06:16 Januvia - PO 25 mg DAILY@0700 [facility] Administration ASSESSMENT/PLAN: 69 yo M from [facility] with PMHx of hypertension, non-insulin dependent Diabetes Mellitus, Cardiomyopathy w/ preserved EF, and CKD, presented to the ED with SoB, syncope, LE edema and was admitted for severe diabetic nephropathy and hyperkalemia requiring HD. Permacath placement was performed, and dialysis achieved, subsequently, a left AVF was placed by the Vascular Team. #ESRD likely secondary to severe untreated diabetic nephropathy On hemodialysis #Chronic Anemia likely 2/2 CKD -Epo Alpha d/c by Nephrology #Hx of HTN Stable continue current medications #DM -Previously on Metformin, will DC on discharge 2/2 CKD and risk of LA -Januvia 25mg qdaily -Atorvastatin 2/2 DM and Cardiac Risk Factor Equivalent -ISS w/ BGM #Hypocalcemia 2/2 ESRD -Continue Phoslo #Hypokalemia -Monitor K+ -Replete as needed #Social Work -Social Work Consulted: Working with medicare to obtain outpatient dialysis placement. -Monitor placement status and DC planning -Cleared for DC by Vascular per their note. #FEN Fluids: No standing fluids, limit excessive fluid intake Electrolytes: Follow as needed Nutrition: Renal Diet Dispo: Continue m/s management. FU social work w/ goal of outpatient hemod ialysis Visit type - Emergency Visit Emergency Visit: Yes ED Registration Date: 09/25/19 Care time: The patient presented to the Emergency Department on the above date and was hospitalized for further evaluation of their emergent condition. - New Patient This patient is new to me today: No - Critical Care Critical Care patient: No - Discharge Referral Referred to [facility] No - Medication Review Med list reviewed for High Risk Meds patients 65 and older: Yes
[2019-10-23] MEDS: ATORVASTATIN CA 10 MG TABLET (FP) PO SCH (21:18)
[2019-10-24] MEDS ORDERED: hydrALAZINE HCL 10 MG TABLET ONE ×3 (05:57→20:42)
[2019-10-24] MEDS ORDERED: hydrALAZINE HCL 25 MG TABLET (FP) ONE ×3 (05:57→20:42)
[2019-10-24] MEDS: hydrALAZINE HCL 25 MG, hydrALAZINE HCL 10 MG PO SCH ×3 (06:01→21:12)
[2019-10-24] MEDS: DOCUSATE SODIUM 100 MG CAPSULE (FP) PO SCH ×3 (06:01→21:12)
[2019-10-24] MEDS: INSULIN SLIDING SCALE (NOVOLOG) 1 VIAL SQ SCH ×4 (06:02→21:12)
[2019-10-24] MEDS ORDERED: SODIUM CHLORIDE 250 ML IV PRN (10:00)
--- NOTE | 2019-10-24 10:00 | PN ---
Progress Note, Physician History of Present Illness: Mr. Vuong is a 69 year old male (. [facility]) with a significant past medical history of HTN, DM, CHF, and renal dysfunction, who presents to the ED with 4 months of bilateral LE edema. As per patient, he presented to the ED from the [facility] secondary to receiving inadequate care. Patient also endorses one month of intermittent shortness of breath, chest pain on exertion, bilateral kidney pain and 4 episodes of syncope last week, with head injury. Denies fever, chills, headache, nausea, vomiting, or urinary changes. - Current Medication List Current Medications: Active Medications Amlodipine Besylate (Norvasc -) 10 mg PO DAILY [facility] Last Admin: 10/23/19 09:01 Dose: 10 mg Documented by: Aspirin (Ecotrin -) 81 mg PO DAILY [facility] Last Admin: 10/23/19 09:01 Dose: 81 mg Documented by: Atorvastatin Calcium (Lipitor -) 10 mg PO HS [facility] Last Admin: 10/23/19 21:18 Dose: 10 mg Documented by: Calcium Acetate (Phoslo -) 667 mg PO TIDCM [facility] Last Admin: 10/23/19 16:58 Dose: 667 mg Documented by: Carvedilol (Coreg -) 12.5 mg PO BID [facility] Last Admin: 10/23/19 21:18 Dose: 12.5 mg Documented by: Docusate Sodium (Colace -) 100 mg PO TID [facility] Last Admin: 10/24/19 06:01 Dose: 100 mg Documented by: Fentanyl (Sublimaze Injection -) 50 mcg IVPUSH [id number] PRN PRN Reason: PAIN-PACU ORDER X 4 DOSES ONLY Last Admin: 10/13/19 18:30 Dose: 50 mcg Documented by: Hydralazine HCl 25 mg/ (Hydralazine HCl 10 mg) 35 mg PO TID [facility] Last Admin: 10/24/19 06:01 Dose: 35 mg Documented by: Sodium Chloride (Normal Saline -) 250 mls @ 3,000 mls/hr IV PRN PRN PRN Reason: Hypotension during Dialysis Stop: 10/24/19 10:01 Insulin Aspart (Novolog Vial Sliding Scale -) 1 vial SQ [facility]; Protocol Last Admin: 10/24/19 06:02 Dose: Not Given Documented by: Losartan Potassium (Cozaar -) 50 mg PO DAILY [facility] Last Admin: 10/23/19 09:01 Dose: 50 mg Documented by: Ondansetron HCl (Zofran Injection) 4 mg IVPUSH Q6H PRN PRN Reason: NAUSEA AND/OR VOMITING Polyethylene Glycol (Miralax (For Daily Use) -) 17 gm PO BID [facility] Last Admin: 10/23/19 21:18 Dose: Not Given Documented by: Promethazine HCl (Phenergan Injection -) 12.5 mg IVPUSH Q6H PRN PRN Reason: NAUSEA-FOR RESCUE AFTER 15 MIN Sitagliptin Phosphate (Januvia -) 25 mg PO DAILY@0700 [facility] Last Admin: 10/24/19 06:01 Dose: 25 mg Documented by: - Objective Vital Signs: Vital Signs Temperature 98.0 F 10/24/19 09:30 Pulse Rate 70 10/24/19 09:35 Respiratory Rate 18 10/24/19 09:35 Blood Pressure 146/58 L 10/24/19 09:35 O2 Sat by Pulse Oximetry (%) 95 10/24/19 05:00 Eyes: Yes: WNL, Conjunctiva Clear, EOM Intact HENT: Yes: WNL, Atraumatic, Normocephalic Neck: Yes: WNL, Supple, Trachea Midline Cardiovascular: Yes: WNL, Regular Rate and Rhythm Respiratory: Yes: WNL, Regular, CTA Bilaterally Gastrointestinal: Yes: WNL, Normal Bowel Sounds Genitourinary: Yes: WNL Musculoskeletal: Yes: WNL Extremities: Yes: WNL Edema: No Integumentary: Yes: WNL Neurological: Yes: WNL, Alert, Oriented ...Motor Strength: WNL Psychiatric: Yes: WNL Labs: CBC, BMP 10/23/19 07:05 10/23/19 07:05 INR, PTT INR 1.03 (0.83-1.09) 09/25/19 00:09 Problem List - Problems (1) Diabetes Code(s): E11.9 - TYPE 2 DIABETES MELLITUS WITHOUT COMPLICATIONS (2) Hyperkalemia Code(s): E87.5 - HYPERKALEMIA (3) Hypertension Code(s): I10 - ESSENTIAL (PRIMARY) HYPERTENSION (4) Kidney failure Code(s): N19 - UNSPECIFIED KIDNEY FAILURE Qualifiers: Renal failure chronicity: acute on chronic Assessment/Plan ssessment/Plan ESRD; on hemodialysis Bilateral LE edema x several months Intermittent shortness of breath Syncope x 4 recently anemia severe hyperkalemia rhabdomyolysis HTN diastolic CHF elevated TNI; stress MIBI now shows small area of mildly intense inferior ischemia EKG: NSR; ? old septal infarct ECHO: normal LVEF; abnormal diastolic compliance; mild-moderate LVH; small pericardial effusion stable s/p AV fistula Rec: Cardiacc gregory stable Cont HD
[2019-10-24] MEDS: CALCIUM ACETATE 667 MG CAPSULE (FP) PO SCH ×3 (10:12→17:29)
[2019-10-24] MEDS: CARVEDILOL 12.5 MG TABLET (FP) PO SCH ×2 (10:12→21:12)
[2019-10-24] MEDS: LOSARTAN POTASSIUM 50 MG TABLET (FP) PO SCH (10:12)
[2019-10-24] MEDS: POLYETHYLENE GLYCOL 3350 119 GM BTL PO SCH ×2 (10:13→21:12)
[2019-10-24] MEDS: amLODIPine BESYLATE 5 MG TABLET (FP) PO SCH (10:13)
[2019-10-24] MEDS: ASPIRIN COATED 81 MG TABLET.EC PO SCH (10:13)
[2019-10-24 10:35] LABS: HEMATOCRIT 28.6 % (35.4-49); HEMOGLOBIN 9.4 GM/dL (11.7-16.9); MCH 30.1 pg (25.7-33.7); MCHC 32.7 g/dl (32.0-35.9); MEAN PLT VOLUME 9.2 fl (7.5-11.1); PLATELET COUNT 138 K/MM3 (134-434); RBC 3.11 M/mm3 (4.00-5.60); RDW 15.9 % (11.9-15.9); WHITE BLOOD COUNT 6.8 K/mm3 (4.0-10.0)
--- NOTE | 2019-10-24 10:35 | PN ---
Physical Exam: SUBJECTIVE: Patient seen and examined at bedside no acute events overnight patient states he is feeling well- he is ready for HD this AM; he has been having regular BM; he denies any CP/SOB/N/v OBJECTIVE: Vital Signs Period Temp Pulse Resp BP Sys/Lopes Pulse Ox Last 24 Hr 98.0 F-99 F 68-72 18-18 139-148/52-62 95-96 GENERAL: The patient is awake, alert, and fully oriented, in no acute distress. EYES:PEERLA; EOMI; no scleral icterus . NECK: no JVD; no lymphadenopathy LUNGS: CTA B/L no rales, rhonchi or wheezing. HEART: Regular rate and rhythm, S1, S2 without murmur, rub or gallop. ABDOMEN: Soft, NT ND +BS in all 4 quadrants EXTREMITIES: 2+ pulses, warm, well-perfused, no edema. PSYCH: Normal mood, normal affect. SKIN: Warm, dry, normal turgor, no rashes or lesions noted Laboratory Results - last 24 hr 10/23/19 10/23/19 10/23/19 11:07 16:12 21:10 POC Glucometer 174 184 148 10/24/19 05:59 POC Glucometer 145 Active Medications Generic Name Dose Route Start Last Admin Trade Name Freq PRN Reason Stop Dose Admin Amlodipine Besylate 10 mg 10/14/19 10:00 10/24/19 10:13 Norvasc - PO Not Given DAILY [facility] Aspirin 81 mg 10/14/19 10:00 10/24/19 10:13 Ecotrin - PO Not Given DAILY [facility] Atorvastatin Calcium 10 mg 10/13/19 22:00 10/23/19 21:18 Lipitor - PO 10 mg HS [facility] Administration Calcium Acetate 667 mg 10/14/19 08:00 10/24/19 10:12 Phoslo - PO Not Given TIDCM MAT Carvedilol 12.5 mg 10/13/19 22:00 10/24/19 10:12 Coreg - PO Not Given BID [facility] Docusate Sodium 100 mg 10/13/19 22:00 10/24/19 06:01 Colace - PO 100 mg TID [facility] Administration Fentanyl 50 mcg 10/13/19 18:10 10/13/19 18:30 Sublimaze Injection - IVPUSH 50 mcg [id number] PRN Administration PAIN-PACU ORDER X 4 DOSES ONLY Hydralazine HCl 25 mg/ 35 mg 10/21/19 22:00 10/24/19 06:01 Hydralazine HCl 10 mg PO 35 mg TID [facility] Administration Insulin Aspart 1 vial 10/13/19 22:00 10/24/19 06:02 Novolog Vial Sliding Scale - SQ Not Given ACHS [facility] Protocol Losartan Potassium 50 mg 10/20/19 10:45 10/24/19 10:12 Cozaar - PO Not Given DAILY [facility] Ondansetron HCl 4 mg 10/13/19 18:10 Zofran Injection IVPUSH Q6H PRN NAUSEA AND/OR VOMITING Polyethylene Glycol 17 gm 10/13/19 22:00 10/24/19 10:13 Miralax (For Daily Use) - PO Not Given BID [facility] Promethazine HCl 12.5 mg 10/13/19 18:10 Phenergan Injection - IVPUSH Q6H PRN NAUSEA-FOR RESCUE AFTER 15 MIN Sitagliptin Phosphate 25 mg 10/14/19 07:00 10/24/19 06:01 Januvia - PO 25 mg DAILY@0700 [facility] Administration ASSESSMENT/PLAN: 69 yo M from [facility] with PMHx of hypertension, non-insulin dependent Diabetes Mellitus, Cardiomyopathy w/ preserved EF, and CKD, presented to the ED with SoB, syncope, LE edema and was admitted for severe diabetic nephropathy and hyperkalemia requiring HD. Permacath placement was performed, and dialysis achieved, subsequently, a left AVF was placed by the Vascular Team. #ESRD likely secondary to severe untreated diabetic nephropathy -AVF Placed on 10/12 -Permacath remains in place - in process of setting up on outpatient HD #Chronic Anemia likely 2/2 CKD -One dose Iron sucrose given -continue to monitor Hgb -to receive EPO with HD #Acute on Likely Chronic Diastolic CHF -ECHO: EF: 60-65% -LA mildly dilated #Hx of HTN goal of < 140/90 -continue to monitor BP -Continue Amlodipine 10 -Continue Coreg 12.5 BID -Continue Hydralazine 25 -Continue Cozaar 50 -Continue ASA #DM -Previously on Metformin, will DC on discharge 2/2 CKD -Januvia 25mg qdaily -ISS w/ BGM #Hypocalcemia 2/2 ESRD -Continue Phoslo #Social Work -Social Work Consulted: Working with medicare to obtain outpatient dialysis placement. -Monitor placement status and DC planning -Cleared for DC by Vascular per their note. #FEN Fluids: No standing fluids, limit excessive fluid intake Electrolytes: Follow as needed Nutrition: Renal Diet Dispo: Continue m/s management patient pending outpatient HD placement Problem List - Problems (1) Diabetes Code(s): E11.9 - TYPE 2 DIABETES MELLITUS WITHOUT COMPLICATIONS (2) ESRD (end stage renal disease) Code(s): N18.6 - END STAGE RENAL DISEASE (3) Hyperkalemia Code(s): E87.5 - HYPERKALEMIA (4) Hypertension Code(s): I10 - ESSENTIAL (PRIMARY) HYPERTENSION (5) Kidney failure Code(s): N19 - UNSPECIFIED KIDNEY FAILURE Qualifiers: Renal failure chronicity: acute on chronic Visit type - Emergency Visit Emergency Visit: Yes ED Registration Date: 09/25/19 Care time: The patient presented to the Emergency Department on the above date and was hospitalized for further evaluation of their emergent condition. - New Patient This patient is new to me today: Yes Date on this admission: 10/24/19 - Critical Care Critical Care patient: No - Medication Review Med list reviewed for High Risk Meds patients 65 and older: Yes ATTENDING PHYSICIAN STATEMENT I saw and evaluated the patient. I reviewed the resident's note and discussed the case with the resident. I agree with the resident's findings and plan as documented. SUBJECTIVE: OBJECTIVE: ASSESSMENT AND PLAN:
--- NOTE | 2019-10-24 11:10 | PN ---
Progress Note, Physician Chief Complaint: Renal failure History of Present Illness: Seen and examined at the bedside seen and examined during dialysis awake and alert offers no acute complaints no sob, cp, fever, chills Goal UF is 1L catheter working well - Current Medication List Current Medications: Active Medications Amlodipine Besylate (Norvasc -) 10 mg PO DAILY [facility] Last Admin: 10/24/19 10:13 Dose: Not Given Documented by: Aspirin (Ecotrin -) 81 mg PO DAILY [facility] Last Admin: 10/24/19 10:13 Dose: Not Given Documented by: Atorvastatin Calcium (Lipitor -) 10 mg PO HS [facility] Last Admin: 10/23/19 21:18 Dose: 10 mg Documented by: Calcium Acetate (Phoslo -) 667 mg PO TIDCM [facility] Last Admin: 10/24/19 10:12 Dose: Not Given Documented by: Carvedilol (Coreg -) 12.5 mg PO BID [facility] Last Admin: 10/24/19 10:12 Dose: Not Given Documented by: Docusate Sodium (Colace -) 100 mg PO TID [facility] Last Admin: 10/24/19 06:01 Dose: 100 mg Documented by: Fentanyl (Sublimaze Injection -) 50 mcg IVPUSH [id number] PRN PRN Reason: PAIN-PACU ORDER X 4 DOSES ONLY Last Admin: 10/13/19 18:30 Dose: 50 mcg Documented by: Hydralazine HCl 25 mg/ (Hydralazine HCl 10 mg) 35 mg PO TID [facility] Last Admin: 10/24/19 06:01 Dose: 35 mg Documented by: Insulin Aspart (Novolog Vial Sliding Scale -) 1 vial SQ [facility]; Protocol Last Admin: 10/24/19 06:02 Dose: Not Given Documented by: Losartan Potassium (Cozaar -) 50 mg PO DAILY [facility] Last Admin: 10/24/19 10:12 Dose: Not Given Documented by: Ondansetron HCl (Zofran Injection) 4 mg IVPUSH Q6H PRN PRN Reason: NAUSEA AND/OR VOMITING Polyethylene Glycol (Miralax (For Daily Use) -) 17 gm PO BID [facility] Last Admin: 10/24/19 10:13 Dose: Not Given Documented by: Promethazine HCl (Phenergan Injection -) 12.5 mg IVPUSH Q6H PRN PRN Reason: NAUSEA-FOR RESCUE AFTER 15 MIN Sitagliptin Phosphate (Januvia -) 25 mg PO DAILY@0700 [facility] Last Admin: 10/24/19 06:01 Dose: 25 mg Documented by: - Objective Vital Signs: Vital Signs Temperature 98.0 F 10/24/19 09:30 Pulse Rate 69 10/24/19 10:35 Respiratory Rate 18 10/24/19 10:35 Blood Pressure 144/57 L 10/24/19 10:35 O2 Sat by Pulse Oximetry (%) 95 10/24/19 05:00 Constitutional: Yes: No Distress, Calm Neck: Yes: Supple Cardiovascular: Yes: Regular Rate and Rhythm Respiratory: Yes: Regular, CTA Bilaterally Gastrointestinal: Yes: Soft. No: Tenderness Edema: No Neurological: Yes: Alert, Oriented Labs: CBC, BMP 10/24/19 09:35 INR, PTT INR 1.03 (0.83-1.09) 09/25/19 00:09 Assessment/Plan 69 year old male with history of hypertension, non-insulin dependent DM, cardiomyopathy, and possible CKD who came from the [facility] and presented to the ED with complaints of leg swelling and syncope and found to have renal failure and hyperkalemia. 1. ESRD requiring dialysis secondary to severe diabetic nephropathy (biopsy proven) 2. Hyperkalemia now resolved 3. Volume overload 4. Metabolic acidosis 5. Anemia 6. Hypertension 7. DM not on insulin 9. Cardiomyopathy Tolerating dialysis well this AM. continue Hd 3x weekly for ESRD from diabetic nephropathy s/p AVF placement per vascular, currently using tunneled HD catheter until AVF is mature Still awaiting insurance authorization for outpatient dialysis placement. SOPHIE give with dialysis for anemia Renal diet Continue Losartan 50mg daily for additional BP control, titrate for goal BP < 140/90 Discharge once outpatient dialysis is secured. Thank you Luiz Galdamez DO
[2019-10-24 11:11] LABS: BLOOD UREA NITROGEN 65.8 mg/dL (7-18); CALCIUM 8.4 mg/dL (8.5-10.1)
[2019-10-24] MEDS ORDERED: PT OWN MED DRAWER 7, Y5N ONE (13:04)
[2019-10-24] MEDS: CALCITRIOL 0.25 MCG CAPSULE (FP) PO SCH (13:06)
--- NOTE | 2019-10-24 14:58 | PN ---
Teaching Attending Note Name of Resident: Federica Valerio ATTENDING PHYSICIAN STATEMENT I saw and evaluated the patient. I reviewed the resident's note and discussed the case with the resident. I agree with the resident's findings and plan as documented. SUBJECTIVE: OBJECTIVE: ASSESSMENT AND PLAN: 69 yo Male from [facility] with a PMHx notable for hypertension, non- insulin dependent Diabetes Mellitus, Cardiomyopathy w/ preserved EF, and CKD, presented to the ED with SoB, syncope, LE edema and was admitted for severe diabetic nephropathy and hyperkalemia requiring HD. Permacath placement was performed, and dialysis achieved, subsequently, a left AVF was placed by the Vascular Team. #ESRD likely secondary to severe untreated diabetic nephropathy On hemodialysis #Chronic Anemia likely 2/2 CKD #Hx of HTN Stable continue current medications #DM -Previously on Metformin, will DC on discharge 2/2 CKD and risk of LA -Januvia 25mg qdaily -Atorvastatin 2/2 DM and Cardiac Risk Factor Equivalent -ISS w/ BGM #Social Work -Social Work Consulted: Working with medicare to obtain outpatient dialysis placement. -Monitor placement status and DC planning
[2019-10-24] MEDS: ATORVASTATIN CA 10 MG TABLET (FP) PO SCH (21:12)
[2019-10-25] MEDS ORDERED: hydrALAZINE HCL 10 MG TABLET ONE ×3 (05:48→21:14)
[2019-10-25] MEDS ORDERED: hydrALAZINE HCL 25 MG TABLET (FP) ONE ×3 (05:48→21:14)
[2019-10-25] MEDS: DOCUSATE SODIUM 100 MG CAPSULE (FP) PO SCH ×3 (06:02→21:21)
[2019-10-25] MEDS: hydrALAZINE HCL 25 MG, hydrALAZINE HCL 10 MG PO SCH ×3 (06:02→21:21)
[2019-10-25] MEDS: INSULIN SLIDING SCALE (NOVOLOG) 1 VIAL SQ SCH ×4 (06:03→21:25)
[2019-10-25 08:18] LABS: HEMATOCRIT 28.1 % (35.4-49); HEMOGLOBIN 9.2 GM/dL (11.7-16.9); MCH 29.7 pg (25.7-33.7); MCHC 32.6 g/dl (32.0-35.9); MEAN CELL VOLUME 91.1 fl (80-96); MEAN PLT VOLUME 8.9 fl (7.5-11.1); PLATELET COUNT 139 K/MM3 (134-434); RBC 3.09 M/mm3 (4.00-5.60); RDW 15.8 % (11.9-15.9); WHITE BLOOD COUNT 5.8 K/mm3 (4.0-10.0)
[2019-10-25 08:37] LABS: ALBUMIN 3.1 g/dl (3.4-5.0); BILIRUBIN,TOTAL 0.8 mg/dL (0.2-1); CALCIUM 8.4 mg/dL (8.5-10.1); CREATININE 5.2 mg/dL (0.55-1.3); MAGNESIUM 2.2 mg/dL (1.8-2.4); PHOSPHOROUS 4.2 mg/dL (2.5-4.9); POTASSIUM 3.8 mmol/L (3.5-5.1); TOT PROT 6.3 g/dl (6.4-8.2)
[2019-10-25 08:44] LABS: BLOOD UREA NITROGEN 37.1 mg/dL (7-18)
[2019-10-25] MEDS: ASPIRIN COATED 81 MG TABLET.EC PO SCH (08:59)
[2019-10-25] MEDS: amLODIPine BESYLATE 5 MG TABLET (FP) PO SCH (08:59)
[2019-10-25] MEDS: CALCITRIOL 0.25 MCG CAPSULE (FP) PO SCH (08:59)
[2019-10-25] MEDS: CALCIUM ACETATE 667 MG CAPSULE (FP) PO SCH ×3 (08:59→16:31)
[2019-10-25] MEDS: LOSARTAN POTASSIUM 50 MG TABLET (FP) PO SCH (09:02)
[2019-10-25] MEDS: CARVEDILOL 12.5 MG TABLET (FP) PO SCH ×2 (09:02→21:21)
[2019-10-25] MEDS: POLYETHYLENE GLYCOL 3350 119 GM BTL PO SCH ×2 (09:03→21:22)
--- NOTE | 2019-10-25 13:21 | PN ---
Physical Exam: SUBJECTIVE: Patient seen and examined no complaints, denies CP, SoB, JACKSON, N/V/D. Currently awaiting placement for outpatient dialysis. OBJECTIVE: Vital Signs Period Temp Pulse Resp BP Sys/Lopes Pulse Ox Last 24 Hr 98.4 F-99.4 F 67-73 18-18 128-141/53-74 96-97 GENERAL: The patient is awake, alert, and fully oriented, in no acute distress. HEAD: Normal with no signs of trauma. EYES: PERRL, extraocular movements intact NECK: Trachea midline, full range of motion, supple. LUNGS: Breath sounds equal, clear to auscultation bilaterally, no wheezes, no crackles, no accessory muscle use. HEART: Regular rate and rhythm, S1, S2 without murmur, rub or gallop. ABDOMEN: R sided CVA tenderness. Soft, nontender, nondistended, normoactive bowel sounds. EXTREMITIES: Left sided AVF notable for bruising, but decreasing. 2+ pulses, warm, well-perfused, no edema. NEUROLOGICAL: Normal speech, gait not observed. PSYCH: Normal mood, normal affect. SKIN: Warm, dry, normal turgor, no rashes or lesions noted Laboratory Results - last 24 hr CBC, BMP 10/25/19 07:28 10/25/19 07:28 Active Medications Generic Name Dose Route Start Last Admin Trade Name Los PRN Reason Stop Dose Admin Amlodipine Besylate 10 mg 10/14/19 10:00 10/25/19 08:59 Norvasc - PO 10 mg DAILY MAT Administration Aspirin 81 mg 10/14/19 10:00 10/25/19 08:59 Ecotrin - PO 81 mg DAILY MAT Administration Atorvastatin Calcium 10 mg 10/13/19 22:00 10/24/19 21:12 Lipitor - PO 10 mg HS MAT Administration Calcitriol 0.25 mcg 10/24/19 11:30 10/25/19 08:59 Rocaltrol - PO 0.25 mcg DAILY MAT Administration Calcium Acetate 667 mg 10/14/19 08:00 10/25/19 11:11 Phoslo - PO 667 mg TIDCM MAT Administration Carvedilol 12.5 mg 10/13/19 22:00 10/25/19 09:02 Coreg - PO 12.5 mg BID MAT Administration Docusate Sodium 100 mg 10/13/19 22:00 10/25/19 06:02 Colace - PO 100 mg TID MAT Administration Fentanyl 50 mcg 10/13/19 18:10 10/13/19 18:30 Sublimaze Injection - IVPUSH 50 mcg [id number] PRN Administration PAIN-PACU ORDER X 4 DOSES ONLY Hydralazine HCl 25 mg/ 35 mg 10/21/19 22:00 10/25/19 06:02 Hydralazine HCl 10 mg PO 35 mg TID MAT Administration Insulin Aspart 1 vial 10/13/19 22:00 10/25/19 11:12 Novolog Vial Sliding Scale - SQ 2 units ACHS MAT Administration Protocol Losartan Potassium 50 mg 10/20/19 10:45 10/25/19 09:02 Cozaar - PO 50 mg DAILY MAT Administration Ondansetron HCl 4 mg 10/13/19 18:10 Zofran Injection IVPUSH Q6H PRN NAUSEA AND/OR VOMITING Polyethylene Glycol 17 gm 10/13/19 22:00 10/25/19 09:03 Miralax (For Daily Use) - PO 17 gm BID MAT Administration Promethazine HCl 12.5 mg 10/13/19 18:10 Phenergan Injection - IVPUSH Q6H PRN NAUSEA-FOR RESCUE AFTER 15 MIN Sitagliptin Phosphate 25 mg 10/14/19 07:00 10/25/19 06:02 Januvia - PO 25 mg DAILY@0700 MAT Administration ASSESSMENT/PLAN: 69 yo M citizen of , currently visiting his nephew and undocumented in the [place], with PMHx of hypertension, non-insulin dependent Diabetes Mellitus, Cardiom yopathy w/ preserved EF, and CKD, presented to the ED with SoB, syncope, LE edema and was noted to have severe diabetic nephropathy and hyperkalemia requiring HD. Permacath placement was performed, and dialysis achieved, subsequently, a left AVF was placed by the Vascular Team. ESRD likely secondary to severe untreated diabetic nephropathy -AVF Placed on 10/12 -(10/15): site is tender to palpation, will continue to assess -(10/17): Site has increased bruising -(10/18): Bruising has decreased -Permacath remains in place -Dialysis MWF -Pre-Dialysis Labs per Nephro Chronic Anemia likely 2/2 CKD -Epo Alpha DC'd by Nephrology -One dose Iron sucrose given -Monitor Hgb 7.6 Today (10/19) --> 9.2 (10/24) Acute on Likely Chronic Diastolic CHF (Poor Medical Treatment/Records, as ptn was previously treated in [place]) -ECHO: EF: 60-65% -LA mildly dilated Hx of HTN -BP Stable ~ 140s -Continue Amlodine -Continue Coreg -Continue Hydralazine: Changed to 35 TID from 50BID for better control. -Continue ASA DM -Previously on Metformin, will DC on discharge 2/2 CKD and risk of LA -Januvia 25mg qdaily -Atorvastatin 2/2 DM and Cardiac Risk Factor Equivalent -ISS w/ BGM Hypocalcemia 2/2 ESRD -Continue Phoslo Hypokalemia -Monitor K+ -Replete as needed Social Work -Social Work Consulted: Working with medicare to obtain outpatient dialysis placement. Likely end of October. -Monitor immigration status and DC planning -Cleared for DC by Vascular per their note. FEN Fluids: No standing fluids, limit excessive fluid intake Electrolytes: Follow as needed Nutrition: Renal Diet Dispo: Continue med/surg management. FU social work w/ goal of outpatient hemodialysis Visit type - Emergency Visit Emergency Visit: No - New Patient This patient is new to me today: No - Critical Care Critical Care patient: No - Discharge Referral Referred to [facility] Med P.C.: No - Medication Review Med list reviewed for High Risk Meds patients 65 and older: Yes ATTENDING PHYSICIAN STATEMENT I saw and evaluated the patient. I reviewed the resident's note and discussed the case with the resident. I agree with the resident's findings and plan as documented. SUBJECTIVE: OBJECTIVE: ASSESSMENT AND PLAN:
[2019-10-25] MEDS ORDERED: SODIUM CHLORIDE 250 ML IV PRN (18:47)
--- NOTE | 2019-10-25 18:53 | PN ---
Teaching Attending Note Name of Resident: Yan Celis ATTENDING PHYSICIAN STATEMENT I saw and evaluated the patient. I reviewed the resident's note and discussed the case with the resident. I agree with the resident's findings and plan as documented. SUBJECTIVE: Comfortable with NAd OBJECTIVE: Vital Signs Temperature 98.3 F 10/25/19 14:48 Pulse Rate 63 10/25/19 14:48 Respiratory Rate 18 10/25/19 14:48 Blood Pressure 142/57 L 10/25/19 14:48 O2 Sat by Pulse Oximetry (%) 97 10/25/19 14:48 PE: per resident's note CBCD WBC 5.8 K/mm3 (4.0-10.0) 10/25/19 07:28 RBC 3.09 M/mm3 (4.00-5.60) L 10/25/19 07:28 Hgb 9.2 GM/dL (11.7-16.9) L 10/25/19 07:28 Hct 28.1 % (35.4-49) L 10/25/19 07:28 MCV 91.1 fl (80-96) 10/25/19 07:28 MCHC 32.6 g/dl (32.0-35.9) 10/25/19 07:28 RDW 15.8 % (11.9-15.9) 10/25/19 07:28 Plt Count 139 K/MM3 (134-434) 10/25/19 07:28 MPV 8.9 fl (7.5-11.1) 10/25/19 07:28 CMP Sodium 138 mmol/L (136-145) 10/25/19 07:28 Potassium 3.8 mmol/L (3.5-5.1) 10/25/19 07:28 Chloride 100 mmol/L (98-107) 10/25/19 07:28 Carbon Dioxide 29 mmol/L (21-32) 10/25/19 07:28 Anion Gap 9 MMOL/L (8-16) 10/25/19 07:28 BUN 37.1 mg/dL (7-18) H 10/25/19 07:28 Creatinine 5.2 mg/dL (0.55-1.3) H 10/25/19 07:28 Random Glucose 141 mg/dL (74-106) H 09/08/20 07:28 Calcium 8.4 mg/dL (8.5-10.1) L 10/25/19 07:28 Total Bilirubin 0.8 mg/dL (0.2-1) 10/25/19 07:28 AST 15 U/L (15-37) 10/25/19 07:28 ALT 32 U/L (13-61) 10/25/19 07:28 Alkaline Phosphatase 58 U/L (45-117) 10/25/19 07:28 Total Protein 6.3 g/dl (6.4-8.2) L 10/25/19 07:28 Albumin 3.1 g/dl (3.4-5.0) L 10/25/19 07:28 CARDIAC ENZYMES Creatine Kinase 418 U/L (26-308) H 09/29/19 06:05 Troponin I 0.07 ng/ml (0.00-0.05) H 09/29/19 06:05 Current Medications Generic Name Dose Route Start Last Admin Trade Name Freq PRN Reason Stop Dose Admin Amlodipine Besylate 10 mg 10/14/19 10:00 10/25/19 08:59 Norvasc - PO 10 mg DAILY MAT Administration Aspirin 81 mg 10/14/19 10:00 10/25/19 08:59 Ecotrin - PO 81 mg DAILY MAT Administration Atorvastatin Calcium 10 mg 10/13/19 22:00 10/24/19 21:12 Lipitor - PO 10 mg HS MAT Administration Calcitriol 0.25 mcg 10/24/19 11:30 10/25/19 08:59 Rocaltrol - PO 0.25 mcg DAILY MAT Administration Calcium Acetate 667 mg 10/14/19 08:00 10/25/19 16:31 Phoslo - PO 667 mg TIDCM MAT Administration Carvedilol 12.5 mg 10/13/19 22:00 10/25/19 09:02 Coreg - PO 12.5 mg BID MAT Administration Docusate Sodium 100 mg 10/13/19 22:00 10/25/19 15:05 Colace - PO 100 mg TID MAT Administration Fentanyl 50 mcg 10/13/19 18:10 10/13/19 18:30 Sublimaze Injection - IVPUSH 50 mcg [id number] PRN Administration PAIN-PACU ORDER X 4 DOSES ONLY Hydralazine HCl 25 mg/ 35 mg 10/21/19 22:00 10/25/19 15:05 Hydralazine HCl 10 mg PO 35 mg TID MAT Administration Insulin Aspart 1 vial 10/13/19 22:00 10/25/19 16:30 Novolog Vial Sliding Scale - SQ 4 units ACHS MAT Administration Protocol Losartan Potassium 50 mg 10/20/19 10:45 10/25/19 09:02 Cozaar - PO 50 mg DAILY MAT Administration Ondansetron HCl 4 mg 10/13/19 18:10 Zofran Injection IVPUSH Q6H PRN NAUSEA AND/OR VOMITING Polyethylene Glycol 17 gm 10/13/19 22:00 10/25/19 09:03 Miralax (For Daily Use) - PO 17 gm BID MAT Administration Promethazine HCl 12.5 mg 10/13/19 18:10 Phenergan Injection - IVPUSH Q6H PRN NAUSEA-FOR RESCUE AFTER 15 MIN Sitagliptin Phosphate 25 mg 10/14/19 07:00 10/25/19 06:02 Januvia - PO 25 mg DAILY@0700 MAT Administration Home Medications Medication Instructions Recorded Amlodipine Besylate [Norvasc -] 10 mg PO DAILY 09/27/19 Irbesartan [Avapro] 300 mg PO DAILY 09/27/19 metFORMIN HCL [Metformin HCl] 850 mg PO DAILY 09/27/19 Microbiology 09/25/19 01:00 Urine - Urine Clean Catch Urine Culture - Final NO GROWTH OBTAINED ASSESSMENT AND PLAN: This patient is a 69yom with pMHX of HTN, non-insulin dependent Diabetes Mellitus, Cardiomyopathy w/ preserved EF, and CKD, presented to the ED with SoB, syncope, LE edema and was noted to have severe diabetic nephropathy and hyperkalemia requiring HD. Permacath placement was performed, and dialysis achieved, subsequently, a left AVF was placed by the Vascular Team. no new events overnight #ESRD on HD continue due to having severe untreated diabetic nephropathy #Chronic Anemia due to CKD #Acute on Chronic Diastolic CHF on HD ; ECHO: EF: 60-65%, LA mildly dilated # Hx of HTN continue meds #T2DM on SS with coverage #Hypocalcemia due to ESRD, Continue Phoslo #Hypokalemia : Monitor K+, Replete as needed # Social Work on the case , waiting for placement for outpatient dialysis DVt Px: SCDs
[2019-10-25] MEDS: ATORVASTATIN CA 10 MG TABLET (FP) PO SCH (21:21)
--- NOTE | 2019-10-26 01:28 | PN ---
Progress Note, Physician Chief Complaint: Pt A&Ox3; no chest pain or dyspnea. History of Present Illness: Mr. Vuong is a 69 year old male (. [facility]) with a significant past medical history of HTN, DM, CHF, and renal dysfunction, who presents to the ED with 4 months of bilateral LE edema. As per patient, he presented to the ED from the [facility] secondary to receiving inadequate care. Patient also endorses one month of intermittent shortness of breath, occasional mild sharp central chest pain on exertion lasting a few seconds, bilateral kidney pain and 4 episodes of syncope last week, with head injury. Denies fever, chills, headache, nausea, vomiting, or urinary changes. - Current Medication List Current Medications: Active Medications Amlodipine Besylate (Norvasc -) 10 mg PO DAILY [facility] Last Admin: 10/25/19 08:59 Dose: 10 mg Documented by: Aspirin (Ecotrin -) 81 mg PO DAILY [facility] Last Admin: 10/25/19 08:59 Dose: 81 mg Documented by: Atorvastatin Calcium (Lipitor -) 10 mg PO HS [facility] Last Admin: 10/25/19 21:21 Dose: 10 mg Documented by: Calcitriol (Rocaltrol -) 0.25 mcg PO DAILY [facility] Last Admin: 10/25/19 08:59 Dose: 0.25 mcg Documented by: Calcium Acetate (Phoslo -) 667 mg PO TIDCM [facility] Last Admin: 10/25/19 16:31 Dose: 667 mg Documented by: Carvedilol (Coreg -) 12.5 mg PO BID [facility] Last Admin: 10/25/19 21:21 Dose: 12.5 mg Documented by: Docusate Sodium (Colace -) 100 mg PO TID [facility] Last Admin: 10/25/19 21:21 Dose: 100 mg Documented by: Epoetin Efrem (Procrit -) 20,000 unit SQ ONCE ONE Stop: 10/26/19 08:01 Fentanyl (Sublimaze Injection -) 50 mcg IVPUSH [id number] PRN PRN Reason: PAIN-PACU ORDER X 4 DOSES ONLY Last Admin: 10/13/19 18:30 Dose: 50 mcg Documented by: Hydralazine HCl 25 mg/ (Hydralazine HCl 10 mg) 35 mg PO TID [facility] Last Admin: 09/08/20 21:21 Dose: 35 mg Documented by: Sodium Chloride (Normal Saline -) 250 mls @ 3,000 mls/hr IV PRN PRN PRN Reason: Hypotension during Dialysis Stop: 10/26/19 18:48 Insulin Aspart (Novolog Vial Sliding Scale -) 1 vial SQ ACHS [facility]; Protocol Last Admin: 10/25/19 21:25 Dose: Not Given Documented by: Losartan Potassium (Cozaar -) 50 mg PO DAILY [facility] Last Admin: 10/25/19 09:02 Dose: 50 mg Documented by: Ondansetron HCl (Zofran Injection) 4 mg IVPUSH Q6H PRN PRN Reason: NAUSEA AND/OR VOMITING Polyethylene Glycol (Miralax (For Daily Use) -) 17 gm PO BID [facility] Last Admin: 10/25/19 21:22 Dose: 17 gm Documented by: Promethazine HCl (Phenergan Injection -) 12.5 mg IVPUSH Q6H PRN PRN Reason: NAUSEA-FOR RESCUE AFTER 15 MIN Sitagliptin Phosphate (Januvia -) 25 mg PO DAILY@0700 [facility] Last Admin: 10/25/19 06:02 Dose: 25 mg Documented by: - Objective Vital Signs: Vital Signs Temperature 98.7 F 10/25/19 18:59 Pulse Rate 75 10/25/19 21:19 Respiratory Rate 20 10/25/19 21:19 Blood Pressure 160/59 L 10/25/19 21:19 O2 Sat by Pulse Oximetry (%) 97 10/25/19 21:19 Constitutional: Yes: No Distress Eyes: Yes: WNL HENT: Yes: WNL Neck: Yes: WNL Cardiovascular: Yes: Regular Rate and Rhythm Respiratory: Yes: WNL Gastrointestinal: Yes: WNL ...Rectal Exam: Yes: Deferred Genitourinary: No: Anuria Musculoskeletal: Yes: Muscle Weakness Extremities: Yes: WNL Edema: No Peripheral Pulses WNL: Yes Integumentary: Yes: Incision Wound/Incision: Yes: Clean/Dry Neurological: Yes: WNL Psychiatric: Yes: WNL Labs: CBC, BMP 10/25/19 07:28 10/25/19 07:28 INR, PTT INR 1.03 (0.83-1.09) 09/25/19 00:09 Abnormal Lab Results 10/25/19 10/25/19 07:28 07:28 RBC 3.09 L Hgb 9.2 L Hct 28.1 L BUN 37.1 H Creatinine 5.2 H Random Glucose 141 H Calcium 8.4 L Total Protein 6.3 L Albumin 3.1 L - ....Imaging Chest X-ray: Image Reviewed EKG: Image Reviewed Assessment/Plan ESRD; on hemodialysis s/p AV fistula Syncope anemia: on SOPHIE severe hyperkalemia s/p rhabdomyolysis HTN diastolic CHF elevated TNI; stress MIBI now shows small area of mildly intense inferior ischemia EKG: NSR; ? old septal infarct ECHO: normal LVEF; abnormal diastolic compliance; mild-moderate LVH; small pe ricardial effusion Rec: s/p renal biopsy Increased amlodipine to 10 mg daily; increased hydralazine to 35 mg bid; continue Coreg 12.5 bid; losartan 50 mg daily, and may increase dose;f/u BP and HR serially. Aggressive BP, lipid, glucose control. Cholesterol: LDL 68; HDL 45; continue atorvastatin; follow heart-healthy diet; increase exercise. Continue hemodialysis per [facility] consultant.
[2019-10-26] MEDS ORDERED: hydrALAZINE HCL 25 MG TABLET (FP) ONE ×3 (06:31→21:40)
[2019-10-26] MEDS ORDERED: hydrALAZINE HCL 10 MG TABLET ONE ×3 (06:31→21:39)
[2019-10-26] MEDS: hydrALAZINE HCL 25 MG, hydrALAZINE HCL 10 MG PO SCH ×3 (06:35→21:56)
[2019-10-26] MEDS: DOCUSATE SODIUM 100 MG CAPSULE (FP) PO SCH ×3 (06:35→21:56)
[2019-10-26] MEDS: INSULIN SLIDING SCALE (NOVOLOG) 1 VIAL SQ SCH ×4 (06:36→21:57)
[2019-10-26] MEDS: CALCIUM ACETATE 667 MG CAPSULE (FP) PO SCH ×3 (08:23→17:24)
[2019-10-26] MEDS: POLYETHYLENE GLYCOL 3350 119 GM BTL PO SCH ×2 (10:00→21:57)
--- NOTE | 2019-10-26 10:24 | PN ---
Progress Note, Physician History of Present Illness: Mr. Vuong is a 69 year old male (. [facility]) with a significant past medical history of HTN, DM, CHF, and renal dysfunction, who presents to the ED with 4 months of bilateral LE edema. As per patient, he presented to the ED from the [facility] secondary to receiving inadequate care. Patient also endorses one month of intermittent shortness of breath, chest pain on exertion, bilateral kidney pain and 4 episodes of syncope last week, with head injury. Denies fever, chills, headache, nausea, vomiting, or urinary changes. - Current Medication List Current Medications: Active Medications Amlodipine Besylate (Norvasc -) 10 mg PO DAILY [facility] Last Admin: 10/25/19 08:59 Dose: 10 mg Documented by: Aspirin (Ecotrin -) 81 mg PO DAILY [facility] Last Admin: 10/25/19 08:59 Dose: 81 mg Documented by: Atorvastatin Calcium (Lipitor -) 10 mg PO HS [facility] Last Admin: 10/25/19 21:21 Dose: 10 mg Documented by: Calcitriol (Rocaltrol -) 0.25 mcg PO DAILY [facility] Last Admin: 10/25/19 08:59 Dose: 0.25 mcg Documented by: Calcium Acetate (Phoslo -) 667 mg PO TIDCM [facility] Last Admin: 10/26/19 08:23 Dose: 667 mg Documented by: Carvedilol (Coreg -) 12.5 mg PO BID [facility] Last Admin: 10/25/19 21:21 Dose: 12.5 mg Documented by: Docusate Sodium (Colace -) 100 mg PO TID [facility] Last Admin: 10/26/19 06:35 Dose: 100 mg Documented by: Epoetin Efrem (Procrit -) 20,000 unit SQ ONCE ONE Stop: 10/26/19 08:01 Fentanyl (Sublimaze Injection -) 50 mcg IVPUSH [id number] PRN PRN Reason: PAIN-PACU ORDER X 4 DOSES ONLY Last Admin: 10/13/19 18:30 Dose: 50 mcg Documented by: Hydralazine HCl 25 mg/ (Hydralazine HCl 10 mg) 35 mg PO TID [facility] Last Admin: 10/26/19 06:35 Dose: 35 mg Documented by: Sodium Chloride (Normal Saline -) 250 mls @ 3,000 mls/hr IV PRN PRN PRN Reason: Hypotension during Dialysis Stop: 10/26/19 18:48 Insulin Aspart (Novolog Vial Sliding Scale -) 1 vial SQ [facility]; Protocol Last Admin: 10/26/19 10:05 Dose: Not Given Documented by: Losartan Potassium (Cozaar -) 50 mg PO DAILY [facility] Last Admin: 10/25/19 09:02 Dose: 50 mg Documented by: Ondansetron HCl (Zofran Injection) 4 mg IVPUSH Q6H PRN PRN Reason: NAUSEA AND/OR VOMITING Polyethylene Glycol (Miralax (For Daily Use) -) 17 gm PO BID [facility] Last Admin: 10/25/19 21:22 Dose: 17 gm Documented by: Promethazine HCl (Phenergan Injection -) 12.5 mg IVPUSH Q6H PRN PRN Reason: NAUSEA-FOR RESCUE AFTER 15 MIN Sitagliptin Phosphate (Januvia -) 25 mg PO DAILY@0700 [facility] Last Admin: 10/26/19 06:35 Dose: 25 mg Documented by: - Objective Vital Signs: Vital Signs Temperature 98.6 F 10/26/19 08:43 Pulse Rate 71 10/26/19 10:00 Respiratory Rate 18 10/26/19 10:00 Blood Pressure 139/69 10/26/19 10:00 O2 Sat by Pulse Oximetry (%) 93 L 10/26/19 08:43 Eyes: Yes: WNL, Conjunctiva Clear, EOM Intact HENT: Yes: WNL, Atraumatic, Normocephalic Neck: Yes: WNL, Supple, Trachea Midline Cardiovascular: Yes: WNL, Regular Rate and Rhythm Respiratory: Yes: WNL, Regular, CTA Bilaterally Gastrointestinal: Yes: WNL, Normal Bowel Sounds Genitourinary: Yes: WNL Musculoskeletal: Yes: WNL Extremities: Yes: WNL Edema: No Integumentary: Yes: WNL Neurological: Yes: WNL, Alert, Oriented ...Motor Strength: WNL Psychiatric: Yes: WNL Labs: CBC, BMP 10/25/19 07:28 10/25/19 07:28 INR, PTT INR 1.03 (0.83-1.09) 09/25/19 00:09 Problem List - Problems (1) Diabetes Code(s): E11.9 - TYPE 2 DIABETES MELLITUS WITHOUT COMPLICATIONS (2) Hyperkalemia Code(s): E87.5 - HYPERKALEMIA (3) Hypertension Code(s): I10 - ESSENTIAL (PRIMARY) HYPERTENSION (4) Kidney failure Code(s): N19 - UNSPECIFIED KIDNEY FAILURE Qualifiers: Renal failure chronicity: acute on chronic Assessment/Plan ESRD; on hemodialysis s/p AV fistula Syncope anemia: on SOPHIE severe hyperkalemia s/p rhabdomyolysis HTN diastolic CHF elevated TNI; stress MIBI now shows small area of mildly intense inferior ischemia EKG: NSR; ? old septal infarct ECHO: normal LVEF; abnormal diastolic compliance; mild-moderate LVH; small pericardial effusion Rec: s/p renal biopsy Increased amlodipine to 10 mg daily; increased hydralazine to 35 mg bid; continue Coreg 12.5 bid; losartan 50 mg daily, and may increase dose;f/u BP and HR serially. Aggressive BP, lipid, glucose control. Cholesterol: LDL 68; HDL 45; continue atorvastatin; follow heart-healthy diet; increase exercise. Continue hemodialysis per correctional therapy teacher.
[2019-10-26] MEDS ORDERED: EPOETIN ALFA 20,000 UNIT/1 ML VIAL IVPUSH ONE (11:30)
--- NOTE | 2019-10-26 13:21 | PN ---
Progress Note, Physician Chief Complaint: Renal failure History of Present Illness: Seen and examined at the bedside seen and examined during dialysis awake and alert offers no acute complaints no sob, cp, fever, chills Goal UF is 1L catheter working well - Current Medication List Current Medications: Active Medications Amlodipine Besylate (Norvasc -) 10 mg PO DAILY [facility] Last Admin: 10/25/19 08:59 Dose: 10 mg Documented by: Aspirin (Ecotrin -) 81 mg PO DAILY [facility] Last Admin: 10/25/19 08:59 Dose: 81 mg Documented by: Atorvastatin Calcium (Lipitor -) 10 mg PO HS [facility] Last Admin: 10/25/19 21:21 Dose: 10 mg Documented by: Calcitriol (Rocaltrol -) 0.25 mcg PO DAILY [facility] Last Admin: 10/25/19 08:59 Dose: 0.25 mcg Documented by: Calcium Acetate (Phoslo -) 667 mg PO TIDCM REPLACED [facility] Last Admin: 10/26/19 08:23 Dose: 667 mg Documented by: Carvedilol (Coreg -) 12.5 mg PO BID [facility] Last Admin: 10/25/19 21:21 Dose: 12.5 mg Documented by: Docusate Sodium (Colace -) 100 mg PO TID [facility] Last Admin: 10/26/19 06:35 Dose: 100 mg Documented by: Fentanyl (Sublimaze Injection -) 50 mcg IVPUSH [id number] PRN PRN Reason: PAIN-PACU ORDER X 4 DOSES ONLY Last Admin: 10/13/19 18:30 Dose: 50 mcg Documented by: Hydralazine HCl 25 mg/ (Hydralazine HCl 10 mg) 35 mg PO TID [facility] Last Admin: 10/26/19 06:35 Dose: 35 mg Documented by: Sodium Chloride (Normal Saline -) 250 mls @ 3,000 mls/hr IV PRN PRN PRN Reason: Hypotension during Dialysis Stop: 10/26/19 18:48 Insulin Aspart (Novolog Vial Sliding Scale -) 1 vial SQ ACHS [facility]PL[facility]; Protocol Last Admin: 10/26/19 10:05 Dose: Not Given Documented by: Losartan Potassium (Cozaar -) 50 mg PO DAILY [facility] Last Admin: 10/25/19 09:02 Dose: 50 mg Documented by: Ondansetron HCl (Zofran Injection) 4 mg IVPUSH Q6H PRN PRN Reason: NAUSEA AND/OR VOMITING Polyethylene Glycol (Miralax (For Daily Use) -) 17 gm PO BID [facility] Last Admin: 10/25/19 21:22 Dose: 17 gm Documented by: Promethazine HCl (Phenergan Injection -) 12.5 mg IVPUSH Q6H PRN PRN Reason: NAUSEA-FOR RESCUE AFTER 15 MIN Sitagliptin Phosphate (Januvia -) 25 mg PO DAILY@0700 [facility]PL[facility] Last Admin: 10/26/19 06:35 Dose: 25 mg Documented by: - Objective Vital Signs: Vital Signs Temperature 98.6 F 10/26/19 08:43 Pulse Rate 88 10/26/19 12:30 Respiratory Rate 19 10/26/19 12:30 Blood Pressure 168/80 10/26/19 12:30 O2 Sat by Pulse Oximetry (%) 93 L 10/26/19 08:43 Constitutional: Yes: No Distress, Calm HENT: Yes: Atraumatic Neck: Yes: Supple Cardiovascular: Yes: Regular Rate and Rhythm Respiratory: Yes: Regular Gastrointestinal: Yes: Soft. No: Tenderness Genitourinary: No: Bladder Distention Extremities: No: Cyanosis Edema: No Neurological: Yes: Alert Labs: CBC, BMP 10/25/19 07:28 10/25/19 07:28 INR, PTT INR 1.03 (0.83-1.09) 09/25/19 00:09 Assessment/Plan 69 year old male with history of hypertension, non-insulin dependent DM, cardiomyopathy, and possible CKD who came from the [facility] and presented to the ED with complaints of leg swelling and syncope and found to have renal failure and hyperkalemia. 1. ESRD requiring dialysis secondary to severe diabetic nephropathy (biopsy proven) 2. Hyperkalemia now resolved 3. Volume overload 4. Metabolic acidosis 5. Anemia 6. Hypertension 7. DM not on insulin 9. Cardiomyopathy Tolerating dialysis, UF goal is 1L. continue Hd 3x weekly for ESRD from diabetic nephropathy s/p AVF placement per vascular, not yet mature enough to use. Still awaiting insurance authorization for outpatient dialysis placement. SOPHIE give with dialysis for anemia Renal diet Continue Losartan 50mg daily for additional BP control, titrate for goal BP < 140/90 Discharge once outpatient dialysis is secured. Thank you Luiz Galdamez DO
[2019-10-26 13:27] LABS: BASO % 0.5 % (0-2.0); EOS % 4.2 % (0-4.5); HEMATOCRIT 26.4 % (35.4-49); HEMOGLOBIN 8.7 GM/dL (11.7-16.9); LYMPH % 13.4 % (8-40); MCHC 32.8 g/dl (32.0-35.9); MEAN CELL VOLUME 91.6 fl (80-96); MEAN PLT VOLUME 9.2 fl (7.5-11.1); MONO % 11.2 % (3.8-10.2); NEUT % 70.7 % (42.8-82.8); PLATELET COUNT 115 K/MM3 (134-434); RBC 2.88 M/mm3 (4.00-5.60); RDW 16.1 % (11.9-15.9); WHITE BLOOD COUNT 5.3 K/mm3 (4.0-10.0)
--- NOTE | 2019-10-26 13:45 | PN ---
Physical Exam: SUBJECTIVE: Patient seen and examined, no acute distress, will be going for dialysis today. ROS negative. OBJECTIVE: Vital Signs Period Temp Pulse Resp BP Sys/Lopes Pulse Ox Last 24 Hr 98.3 F-98.7 F 63-88 16-20 122-171/50-83 93-98 GENERAL: The patient is awake, alert, and fully oriented, in no acute distress. HEAD: Normal with no signs of trauma. EYES: PERRL, extraocular movements intact NECK: Trachea midline, full range of motion, supple. LUNGS: Breath sounds equal, clear to auscultation bilaterally, no wheezes, no crackles, no accessory muscle use. HEART: Regular rate and rhythm, S1, S2 without murmur, rub or gallop. ABDOMEN: R sided CVA tenderness. Soft, nontender, nondistended, normoactive bowel sounds. EXTREMITIES: Left sided AVF notable for bruising, but decreasing. 2+ pulses, warm, well-perfused, no edema. NEUROLOGICAL: Normal speech, gait not observed. PSYCH: Normal mood, normal affect. SKIN: Warm, dry, normal turgor, no rashes or lesions noted Laboratory Results - last 24 hr CBC, BMP 10/26/19 11:00 10/26/19 11:00 Active Medications Generic Name Dose Route Start Last Admin Trade Name Los PRN Reason Stop Dose Admin Amlodipine Besylate 10 mg 10/14/19 10:00 10/25/19 08:59 Norvasc - PO 10 mg DAILY MAT Administration Aspirin 81 mg 10/14/19 10:00 10/25/19 08:59 Ecotrin - PO 81 mg DAILY MAT Administration Atorvastatin Calcium 10 mg 10/13/19 22:00 10/25/19 21:21 Lipitor - PO 10 mg HS MAT Administration Calcitriol 0.25 mcg 10/24/19 11:30 10/25/19 08:59 Rocaltrol - PO 0.25 mcg DAILY MAT Administration Calcium Acetate 667 mg 10/14/19 08:00 10/26/19 08:23 Phoslo - PO 667 mg TIDCM MAT Administration Carvedilol 12.5 mg 10/13/19 22:00 10/25/19 21:21 Coreg - PO 12.5 mg BID MAT Administration Docusate Sodium 100 mg 10/13/19 22:00 10/26/19 06:35 Colace - PO 100 mg TID MAT Administration Fentanyl 50 mcg 10/13/19 18:10 10/13/19 18:30 Sublimaze Injection - IVPUSH 50 mcg [id number] PRN Administration PAIN-PACU ORDER X 4 DOSES ONLY Hydralazine HCl 25 mg/ 35 mg 10/21/19 22:00 10/26/19 06:35 Hydralazine HCl 10 mg PO 35 mg TID MAT Administration Sodium Chloride 250 mls @ 3,000 mls/hr 10/25/19 18:47 Normal Saline - IV 10/26/19 18:48 PRN PRN Hypotension during Dialysis Insulin Aspart 1 vial 10/13/19 22:00 10/26/19 10:05 Novolog Vial Sliding Scale - SQ Not Given ACHS [facility] Protocol Losartan Potassium 50 mg 10/20/19 10:45 10/25/19 09:02 Cozaar - PO 50 mg DAILY MAT Administration Ondansetron HCl 4 mg 10/13/19 18:10 Zofran Injection IVPUSH Q6H PRN NAUSEA AND/OR VOMITING Polyethylene Glycol 17 gm 10/13/19 22:00 10/25/19 21:22 Miralax (For Daily Use) - PO 17 gm BID MAT Administration Promethazine HCl 12.5 mg 10/13/19 18:10 Phenergan Injection - IVPUSH Q6H PRN NAUSEA-FOR RESCUE AFTER 15 MIN Sitagliptin Phosphate 25 mg 10/14/19 07:00 10/26/19 06:35 Januvia - PO 25 mg DAILY@0700 MAT Administration ASSESSMENT/PLAN: 69 yo M citizen of , currently visiting his nephew and undocumented in the [place], with PMHx of hypertension, non-insulin dependent Diabetes Mellitus, Car diomyopathy w/ preserved EF, and CKD, presented to the ED with SoB, syncope, LE edema and was noted to have severe diabetic nephropathy and hyperkalemia requiring HD. Permacath placement was performed, and dialysis achieved, subsequently, a left AVF was placed by the Vascular Team. ESRD likely secondary to severe untreated diabetic nephropathy -AVF Placed on 10/12 -(10/15): site is tender to palpation, will continue to assess -(10/17): Site has increased bruising -(10/18): Bruising has decreased -Permacath remains in place -Dialysis MWF -Pre-Dialysis Labs per Nephro Chronic Anemia likely 2/2 CKD -Epo Alpha DC'd by Nephrology -One dose Iron sucrose given -Monitor Hgb 7.6 Today (10/19) --> 9.2 (10/24) --> 8.7 (10/25) Acute on Likely Chronic Diastolic CHF (Poor Medical Treatment/Records, as ptn was previously treated in [place]) -ECHO: EF: 60-65% -LA mildly dilated Hx of HTN -BP Stable ~ 140s -Continue Amlodine -Continue Coreg -Continue Hydralazine: Changed to 35 TID from 50BID for better control. -Continue ASA DM -Previously on Metformin, will DC on discharge 2/2 CKD and risk of LA -Januvia 25mg qdaily -Atorvastatin 2/2 DM and Cardiac Risk Factor Equivalent -ISS w/ BGM Hypocalcemia 2/2 ESRD -Continue Phoslo Hypokalemia -Monitor K+ -Replete as needed Social Work -Social Work Consulted: Working with medicare to obtain outpatient dialysis placement. Likely end of October. -Monitor immigration status and DC planning -Cleared for DC by Vascular per their note. FEN Fluids: No standing fluids, limit excessive fluid intake Electrolytes: Follow as needed Nutrition: Renal Diet Dispo: Continue med/surg management. FU social work w/ goal of outpatient hemodialysis Visit type - Emergency Visit Emergency Visit: No - New Patient This patient is new to me today: No - Critical Care Critical Care patient: No - Discharge Referral Referred to [facility] Med [facility].C[facility] No - Medication Review Med list reviewed for High Risk Meds patients 65 and older: Yes ATTENDING PHYSICIAN STATEMENT I saw and evaluated the patient. I reviewed the resident's note and discussed the case with the resident. I agree with the resident's findings and plan as documented. SUBJECTIVE: OBJECTIVE: ASSESSMENT AND PLAN:
[2019-10-26 13:58] LABS: ALBUMIN 3.1 g/dl (3.4-5.0); BILIRUBIN,TOTAL 0.6 mg/dL (0.2-1); BLOOD UREA NITROGEN 24.1 mg/dL (7-18); CALCIUM 8.4 mg/dL (8.5-10.1); CREATININE 3.2 mg/dL (0.55-1.3); POTASSIUM 3.3 mmol/L (3.5-5.1); TOT PROT 6.2 g/dl (6.4-8.2)
[2019-10-26] MEDS: CALCITRIOL 0.25 MCG CAPSULE (FP) PO SCH (14:34)
[2019-10-26] MEDS: CARVEDILOL 12.5 MG TABLET (FP) PO SCH ×2 (14:34→21:56)
[2019-10-26] MEDS: ASPIRIN COATED 81 MG TABLET.EC PO SCH (14:34)
[2019-10-26] MEDS: amLODIPine BESYLATE 5 MG TABLET (FP) PO SCH (14:35)
[2019-10-26] MEDS: LOSARTAN POTASSIUM 50 MG TABLET (FP) PO SCH (14:36)
--- NOTE | 2019-10-26 18:23 | PN ---
Teaching Attending Note Name of Resident: Yan Celis ATTENDING PHYSICIAN STATEMENT I saw and evaluated the patient. I reviewed the resident's note and discussed the case with the resident. I agree with the resident's findings and plan as documented. SUBJECTIVE: OBJECTIVE: Vital Signs Temperature 98.3 F 10/26/19 14:26 Pulse Rate 81 10/26/19 14:26 Respiratory Rate 20 10/26/19 14:26 Blood Pressure 154/66 10/26/19 14:26 O2 Sat by Pulse Oximetry (%) 99 10/26/19 14:26 PE: per resident's note CBCD WBC 5.3 K/mm3 (4.0-10.0) 10/26/19 11:00 RBC 2.88 M/mm3 (4.00-5.60) L 10/26/19 11:00 Hgb 8.7 GM/dL (11.7-16.9) L 10/26/19 11:00 Hct 26.4 % (35.4-49) L 10/26/19 11:00 MCV 91.6 fl (80-96) 10/26/19 11:00 MCHC 32.8 g/dl (32.0-35.9) 10/26/19 11:00 RDW 16.1 % (11.9-15.9) H 10/26/19 11:00 Plt Count 115 K/MM3 (134-434) L 10/26/19 11:00 MPV 9.2 fl (7.5-11.1) 10/26/19 11:00 CMP Sodium 140 mmol/L (136-145) 10/26/19 11:00 Potassium 3.3 mmol/L (3.5-5.1) L 10/26/19 11:00 Chloride 100 mmol/L (98-107) 10/26/19 11:00 Carbon Dioxide 31 mmol/L (21-32) 10/26/19 11:00 Anion Gap 8 MMOL/L (8-16) 10/26/19 11:00 BUN 24.1 mg/dL (7-18) H 10/26/19 11:00 Creatinine 3.2 mg/dL (0.55-1.3) H 10/26/19 11:00 Random Glucose 185 mg/dL (74-106) H 10/26/19 11:00 Calcium 8.4 mg/dL (8.5-10.1) L 10/26/19 11:00 Total Bilirubin 0.6 mg/dL (0.2-1) 10/26/19 11:00 AST 10 U/L (15-37) L 10/26/19 11:00 ALT 26 U/L (13-61) 10/26/19 11:00 Alkaline Phosphatase 61 U/L (45-117) 10/26/19 11:00 Total Protein 6.2 g/dl (6.4-8.2) L 10/26/19 11:00 Albumin 3.1 g/dl (3.4-5.0) L 10/26/19 11:00 CARDIAC ENZYMES Creatine Kinase 418 U/L (26-308) H 09/29/19 06:05 Troponin I 0.07 ng/ml (0.00-0.05) H 09/29/19 06:05 Current Medications Generic Name Dose Route Start Last Admin Trade Name Freq PRN Reason Stop Dose Admin Amlodipine Besylate 10 mg 10/14/19 10:00 10/26/19 14:35 Norvasc - PO 10 mg DAILY MAT Administration Aspirin 81 mg 10/14/19 10:00 10/26/19 14:34 Ecotrin - PO 81 mg DAILY MAT Administration Atorvastatin Calcium 10 mg 10/13/19 22:00 10/25/19 21:21 Lipitor - PO 10 mg HS MAT Administration Calcitriol 0.25 mcg 10/24/19 11:30 10/26/19 14:34 Rocaltrol - PO 0.25 mcg DAILY MAT Administration Calcium Acetate 667 mg 10/14/19 08:00 10/26/19 17:24 Phoslo - PO 667 mg TIDCM MAT Administration Carvedilol 12.5 mg 10/13/19 22:00 10/26/19 14:34 Coreg - PO 12.5 mg BID MAT Administration Docusate Sodium 100 mg 10/13/19 22:00 10/26/19 14:39 Colace - PO Not Given TID MAT Fentanyl 50 mcg 10/13/19 18:10 10/13/19 18:30 Sublimaze Injection - IVPUSH 50 mcg [id number] PRN Administration PAIN-PACU ORDER X 4 DOSES ONLY Hydralazine HCl 25 mg/ 35 mg 10/21/19 22:00 10/26/19 14:34 Hydralazine HCl 10 mg PO 35 mg TID MAT Administration Sodium Chloride 250 mls @ 3,000 mls/hr 10/25/19 18:47 Normal Saline - IV 10/26/19 18:48 PRN PRN Hypotension during Dialysis Insulin Aspart 1 vial 10/13/19 22:00 10/26/19 17:25 Novolog Vial Sliding Scale - SQ 4 units ACHS MAT Administration Protocol Losartan Potassium 50 mg 10/20/19 10:45 10/26/19 14:36 Cozaar - PO 50 mg DAILY MAT Administration Ondansetron HCl 4 mg 10/13/19 18:10 Zofran Injection IVPUSH Q6H PRN NAUSEA AND/OR VOMITING Polyethylene Glycol 17 gm 10/13/19 22:00 10/26/19 10:00 Miralax (For Daily Use) - PO Not Given BID MAT Promethazine HCl 12.5 mg 10/13/19 18:10 Phenergan Injection - IVPUSH Q6H PRN NAUSEA-FOR RESCUE AFTER 15 MIN Sitagliptin Phosphate 25 mg 10/14/19 07:00 10/26/19 06:35 Januvia - PO 25 mg DAILY@0700 MAT Administration Home Medications Medication Instructions Recorded Amlodipine Besylate [Norvasc -] 10 mg PO DAILY 09/27/19 Irbesartan [Avapro] 300 mg PO DAILY 09/27/19 metFORMIN HCL [Metformin HCl] 850 mg PO DAILY 09/27/19 Microbiology 09/25/19 01:00 Urine - Urine Clean Catch Urine Culture - Final NO GROWTH OBTAINED ASSESSMENT AND PLAN: This patient is a 69yom with pMHX of HTN, non-insulin dependent Diabetes Mellitus, Cardiomyopathy w/ preserved EF, and CKD, presented to the ED with SoB, syncope, LE edema and was noted to have severe diabetic nephropathy and hyperkalemia requiring HD. Perm-a-cath placement was performed, and dialysis achieved, subsequently, a left AVF was placed by the Vascular Team. no new events #ESRD on HD continue due to having severe untreated diabetic nephropathy #Chronic Anemia due to CKD #Acute on Chronic Diastolic CHF on HD ; ECHO: EF: 60-65%, LA mildly dilated # Hx of HTN continue meds #T2DM on SS with coverage #Hypocalcemia due to ESRD, Continue Phoslo #Hypokalemia : Monitor K+, Replete as needed # Social Work on the case , waiting for placement for outpatient dialysis , still pending DVt Px: SCDs
[2019-10-26] MEDS: ATORVASTATIN CA 10 MG TABLET (FP) PO SCH (21:56)
[2019-10-27] MEDS ORDERED: hydrALAZINE HCL 10 MG TABLET ONE ×3 (05:54→21:50)
[2019-10-27] MEDS ORDERED: hydrALAZINE HCL 25 MG TABLET (FP) ONE ×3 (05:54→21:50)
[2019-10-27] MEDS: hydrALAZINE HCL 25 MG, hydrALAZINE HCL 10 MG PO SCH ×3 (05:55→21:52)
[2019-10-27] MEDS: DOCUSATE SODIUM 100 MG CAPSULE (FP) PO SCH ×3 (05:55→21:52)
[2019-10-27] MEDS: INSULIN SLIDING SCALE (NOVOLOG) 1 VIAL SQ SCH ×4 (06:29→21:53)
[2019-10-27] MEDS: CALCIUM ACETATE 667 MG CAPSULE (FP) PO SCH ×3 (08:12→17:12)
[2019-10-27] MEDS: amLODIPine BESYLATE 5 MG TABLET (FP) PO SCH (09:17)
[2019-10-27] MEDS: CALCITRIOL 0.25 MCG CAPSULE (FP) PO SCH (09:17)
[2019-10-27] MEDS: ASPIRIN COATED 81 MG TABLET.EC PO SCH (09:18)
[2019-10-27] MEDS: CARVEDILOL 12.5 MG TABLET (FP) PO SCH (09:18)
[2019-10-27] MEDS: LOSARTAN POTASSIUM 50 MG TABLET (FP) PO SCH (09:18)
[2019-10-27] MEDS: POLYETHYLENE GLYCOL 3350 119 GM BTL PO SCH ×2 (09:19→21:53)
[2019-10-27] MEDS ORDERED: INSULIN (NOVOLOG) ASPART 100 UNITS/ML 10ML VIAL ONE (11:36)
--- NOTE | 2019-10-27 12:09 | PN ---
Progress Note, Physician Chief Complaint: Pt A&Ox3; c/o SOB at rest that began last night. History of Present Illness: Mr. Vuong is a 69 year old male (b. [facility]) with a significant past medical history of HTN, DM, CHF, and renal dysfunction, who presents to the ED with 4 months of bilateral LE edema. As per patient, he presented to the ED from the [facility] secondary to receiving inadequate care. Patient also endorses one month of intermittent shortness of breath, occasional mild sharp ce ntral chest pain on exertion lasting a few seconds, bilateral kidney pain and 4 episodes of syncope last week, with head injury. Denies fever, chills, headache, nausea, vomiting, or urinary changes. - Current Medication List Current Medications: Active Medications Amlodipine Besylate (Norvasc -) 10 mg PO DAILY [facility] Last Admin: 10/27/19 09:17 Dose: 10 mg Documented by: Aspirin (Ecotrin -) 81 mg PO DAILY [facility] Last Admin: 10/27/19 09:18 Dose: 81 mg Documented by: Atorvastatin Calcium (Lipitor -) 10 mg PO HS [facility] Last Admin: 10/26/19 21:56 Dose: 10 mg Documented by: Calcitriol (Rocaltrol -) 0.25 mcg PO DAILY [facility] Last Admin: 10/27/19 09:17 Dose: 0.25 mcg Documented by: Calcium Acetate (Phoslo -) 667 mg PO TIDCM [facility] Last Admin: 10/27/19 11:37 Dose: 667 mg Documented by: Carvedilol (Coreg -) 12.5 mg PO BID [facility] Last Admin: 10/27/19 09:18 Dose: 12.5 mg Documented by: Docusate Sodium (Colace -) 100 mg PO TID [facility] Last Admin: 10/27/19 05:55 Dose: 100 mg Documented by: Fentanyl (Sublimaze Injection -) 50 mcg IVPUSH [id number] PRN PRN Reason: PAIN-PACU ORDER X 4 DOSES ONLY Last Admin: 10/13/19 18:30 Dose: 50 mcg Documented by: Hydralazine HCl 25 mg/ (Hydralazine HCl 10 mg) 35 mg PO TID [facility] Last Admin: 10/27/19 05:55 Dose: 35 mg Documented by: Insulin Aspart (Novolog Vial Sliding Scale -) 1 vial SQ [facility]; Protocol Last Admin: 10/27/19 11:51 Dose: 2 units Documented by: Losartan Potassium (Cozaar -) 50 mg PO DAILY [facility] Last Admin: 10/27/19 09:18 Dose: 50 mg Documented by: Ondansetron HCl (Zofran Injection) 4 mg IVPUSH Q6H PRN PRN Reason: NAUSEA AND/OR VOMITING Polyethylene Glycol (Miralax (For Daily Use) -) 17 gm PO BID [facility] Last Admin: 10/27/19 09:19 Dose: Not Given Documented by: Promethazine HCl (Phenergan Injection -) 12.5 mg IVPUSH Q6H PRN PRN Reason: NAUSEA-FOR RESCUE AFTER 15 MIN Sitagliptin Phosphate (Januvia -) 25 mg PO DAILY@0700 [facility] Last Admin: 10/27/19 06:31 Dose: 25 mg Documented by: - Objective Vital Signs: Vital Signs Temperature 98 F 10/27/19 09:01 Pulse Rate 79 10/27/19 09:01 Respiratory Rate 20 10/27/19 09:01 Blood Pressure 161/72 10/27/19 09:01 O2 Sat by Pulse Oximetry (%) 97 10/27/19 09:01 Constitutional: Yes: Anxious Eyes: Yes: WNL HENT: Yes: WNL Cardiovascular: Yes: Regular Rate and Rhythm, S1, S2, S4 Respiratory: Yes: Diminished, SOB Gastrointestinal: Yes: Soft, Distention (mild; nontender) ...Rectal Exam: Yes: Deferred Genitourinary: Yes: Other (on hemodialysis; last done 10/26/19). No: Anuria Extremities: Yes: Cool Edema: No Peripheral Pulses WNL: Yes Integumentary: Yes: WNL Neurological: Yes: Alert, Oriented Psychiatric: Yes: Alert, Oriented, Other (anxiety) Labs: CBC, BMP 10/26/19 11:00 10/26/19 11:00 INR, PTT INR 1.03 (0.83-1.09) 09/25/19 00:09 Abnormal Lab Results 10/26/19 10/26/19 11:00 11:00 RBC 2.88 L Hgb 8.7 L Hct 26.4 L RDW 16.1 H Plt Count 115 L Monocytes % 11.2 H Potassium 3.3 L BUN 24.1 H Creatinine 3.2 H Random Glucose 185 H Calcium 8.4 L AST 10 L Total Protein 6.2 L Albumin 3.1 L - ....Imaging Chest X-ray: Pending EKG: Pending Assessment/Plan dyspnea at rest that began last night. Acute/chronic diastolic CHF ESRD; on hemodialysis HTN hypokalemia (hx severe hyperkalemia) s/p AV fistula Syncope anemia: on SOPHIE s/p rhabdomyolysis elevated TNI; stress MIBI shows small area of mildly intense inferior ischemia EKG: NSR; ? old septal infarct ECHO: normal LVEF; abnormal diastolic compliance; mild-moderate LVH; small pericardial effusion Rec: CXR EKG O2 sat trooponin level Replete K, f/u Mg; s/p hemodialysis 10/26/19; f/u with desk editor regarding electrolytes, fluid status. s/p renal biopsy On amlodipine to 10 mg daily. Hydralazine to 35 mg bid; Coreg 12.5 bid; losartan 50 mg daily, and may increase doses as needed;f/u BP and HR serially. Aggressive BP, lipid, glucose control. Cholesterol: LDL 68; HDL 45; continue atorvastatin.
--- NOTE | 2019-10-27 14:01 | PN ---
Progress Note, Physician Chief Complaint: Renal failure History of Present Illness: Seen and examined at the bedside awake and alert complains of some shortness of breath this am, feels better now had some right sided chest pain no fever or chils - Current Medication List Current Medications: Active Medications Amlodipine Besylate (Norvasc -) 10 mg PO DAILY [facility] Last Admin: 10/27/19 09:17 Dose: 10 mg Documented by: Aspirin (Ecotrin -) 81 mg PO DAILY [facility] Last Admin: 10/27/19 09:18 Dose: 81 mg Documented by: Atorvastatin Calcium (Lipitor -) 10 mg PO HS [facility] Last Admin: 10/26/19 21:56 Dose: 10 mg Documented by: Calcitriol (Rocaltrol -) 0.25 mcg PO DAILY [facility] Last Admin: 10/27/19 09:17 Dose: 0.25 mcg Documented by: Calcium Acetate (Phoslo -) 667 mg PO TIDCM [facility] Last Admin: 10/27/19 11:37 Dose: 667 mg Documented by: Carvedilol (Coreg -) 12.5 mg PO BID [facility] Last Admin: 10/27/19 09:18 Dose: 12.5 mg Documented by: Docusate Sodium (Colace -) 100 mg PO TID [facility] Last Admin: 10/27/19 13:52 Dose: 100 mg Documented by: Fentanyl (Sublimaze Injection -) 50 mcg IVPUSH [id number] PRN PRN Reason: PAIN-PACU ORDER X 4 DOSES ONLY Last Admin: 10/13/19 18:30 Dose: 50 mcg Documented by: Hydralazine HCl 25 mg/ (Hydralazine HCl 10 mg) 35 mg PO TID [facility] Last Admin: 10/27/19 13:52 Dose: 35 mg Documented by: Insulin Aspart (Novolog Vial Sliding Scale -) 1 vial SQ [facility]; Protocol Last Admin: 10/27/19 11:51 Dose: 2 units Documented by: Losartan Potassium (Cozaar -) 50 mg PO DAILY [facility] Last Admin: 10/27/19 09:18 Dose: 50 mg Documented by: Ondansetron HCl (Zofran Injection) 4 mg IVPUSH Q6H PRN PRN Reason: NAUSEA AND/OR VOMITING Polyethylene Glycol (Miralax (For Daily Use) -) 17 gm PO BID [facility] Last Admin: 10/27/19 09:19 Dose: Not Given Documented by: Promethazine HCl (Phenergan Injection -) 12.5 mg IVPUSH Q6H PRN PRN Reason: NAUSEA-FOR RESCUE AFTER 15 MIN Sitagliptin Phosphate (Januvia -) 25 mg PO DAILY@0700 [facility] Last Admin: 10/27/19 06:31 Dose: 25 mg Documented by: - Objective Vital Signs: Vital Signs Temperature 98 F 10/27/19 09:01 Pulse Rate 79 10/27/19 09:01 Respiratory Rate 20 10/27/19 09:01 Blood Pressure 161/72 10/27/19 09:01 O2 Sat by Pulse Oximetry (%) 97 10/27/19 09:01 Constitutional: Yes: No Distress, Calm HENT: Yes: Atraumatic Neck: Yes: Supple Cardiovascular: Yes: Regular Rate and Rhythm Respiratory: Yes: Regular Gastrointestinal: Yes: Soft. No: Tenderness Extremities: No: Cyanosis Edema: No Neurological: Yes: Alert Labs: CBC, BMP 10/26/19 11:00 10/26/19 11:00 INR, PTT INR 1.03 (0.83-1.09) 09/25/19 00:09 Assessment/Plan 69 year old male with history of hypertension, non-insulin dependent DM, cardiomyopathy, and possible CKD who came from the [place] and presented to the ED with complaints of leg swelling and syncope and found to have renal failure and hyperkalemia. 1. ESRD requiring dialysis secondary to severe diabetic nephropathy (biopsy proven) 2. Hyperkalemia now resolved 3. Volume overload 4. Metabolic acidosis 5. Anemia 6. Hypertension 7. DM not on insulin 9. Cardiomyopathy No acute need for dialysis today. CXR did not show congestion Cardiology following Consider checking doppler of the lower extremity to r/o DVT given acute shortness of breath s/p AVF placement per vascular, not yet mature enough to use. Still awaiting insurance authorization for outpatient dialysis placement. SOPHIE give with dialysis for anemia Renal diet Continue Losartan 50mg daily for additional BP control, titrate for goal BP < 140/90 Discharge once outpatient dialysis is secured. Thank you Luiz Galdamez DO
[2019-10-27 14:32] LABS: MAGNESIUM 1.8 mg/dL (1.8-2.4)
--- NOTE | 2019-10-27 15:41 | PN ---
Physical Exam: SUBJECTIVE: Patient seen and examined this morning. ptn endorsed shortness of breath with/without exertion, denied JACKSON, blurry vision, CP, n/v/f/c. OBJECTIVE: Vital Signs Period Temp Pulse Resp BP Sys/Lopes Pulse Ox Last 24 Hr 97.9 F-98.4 F 67-79 20-20 147-161/57-74 96-100 GENERAL: The patient is awake, alert, and fully oriented, in no acute distress. HEAD: Normal with no signs of trauma. EYES: PERRL, extraocular movements intact NECK: Trachea midline, full range of motion, supple. LUNGS: Breath sounds equal, clear to auscultation bilaterally, no wheezes, no crackles, no accessory muscle use. HEART: Regular rate and rhythm, S1, S2 without murmur, rub or gallop. ABDOMEN: R sided CVA tenderness. Soft, nontender, nondistended, normoactive bowel sounds. EXTREMITIES: Left sided AVF notable for bruising, but decreasing. 2+ pulses, warm, well-perfused, no edema. NEUROLOGICAL: Normal speech, gait not observed. PSYCH: Normal mood, normal affect. SKIN: Warm, dry, normal turgor, no rashes or lesions noted Laboratory Results - last 24 hr CBC, BMP 10/26/19 11:00 10/26/19 11:00 Active Medications Generic Name Dose Route Start Last Admin Trade Name Vinhq PRN Reason Stop Dose Admin Amlodipine Besylate 10 mg 10/14/19 10:00 10/27/19 09:17 Norvasc - PO 10 mg DAILY MAT Administration Aspirin 81 mg 10/14/19 10:00 10/27/19 09:18 Ecotrin - PO 81 mg DAILY MAT Administration Atorvastatin Calcium 10 mg 10/13/19 22:00 10/26/19 21:56 Lipitor - PO 10 mg HS MAT Administration Calcitriol 0.25 mcg 10/24/19 11:30 10/27/19 09:17 Rocaltrol - PO 0.25 mcg DAILY MAT Administration Calcium Acetate 667 mg 10/14/19 08:00 10/27/19 11:37 Phoslo - PO 667 mg TIDCM MAT Administration Carvedilol 12.5 mg 10/13/19 22:00 10/27/19 09:18 Coreg - PO 12.5 mg BID MAT Administration Docusate Sodium 100 mg 10/13/19 22:00 10/27/19 13:52 Colace - PO 100 mg TID MAT Administration Fentanyl 50 mcg 10/13/19 18:10 10/13/19 18:30 Sublimaze Injection - IVPUSH 50 mcg [id number] PRN Administration PAIN-PACU ORDER X 4 DOSES ONLY Hydralazine HCl 25 mg/ 35 mg 10/21/19 22:00 10/27/19 13:52 Hydralazine HCl 10 mg PO 35 mg TID MAT Administration Insulin Aspart 1 vial 10/13/19 22:00 10/27/19 11:51 Novolog Vial Sliding Scale - SQ 2 units ACHS MAT Administration Protocol Losartan Potassium 50 mg 10/20/19 10:45 10/27/19 09:18 Cozaar - PO 50 mg DAILY MAT Administration Ondansetron HCl 4 mg 10/13/19 18:10 Zofran Injection IVPUSH Q6H PRN NAUSEA AND/OR VOMITING Polyethylene Glycol 17 gm 10/13/19 22:00 10/27/19 09:19 Miralax (For Daily Use) - PO Not Given BID MAT Promethazine HCl 12.5 mg 10/13/19 18:10 Phenergan Injection - IVPUSH Q6H PRN NAUSEA-FOR RESCUE AFTER 15 MIN Sitagliptin Phosphate 25 mg 10/14/19 07:00 10/27/19 06:31 Januvia - PO 25 mg DAILY@0700 MAT Administration ASSESSMENT/PLAN: 69 yo M citizen of , currently visiting his nephew and undocumented in the [place], with PMHx of hypertension, non-insulin dependent Diabetes Mellitus, Car diomyopathy w/ preserved EF, and CKD, presented to the ED with SoB, syncope, LE edema and was noted to have severe diabetic nephropathy and hyperkalemia requiring HD. Permacath placement was performed, and dialysis achieved, subsequently, a left AVF was placed by the Vascular Team. ESRD secondary to severe untreated diabetic nephropathy -AVF Placed on 10/12 --> waiting to mature -Permacath remains in place -Dialysis MWF -Pre-Dialysis Labs per Nephro New Onset Shortness of Breath: -CXR: Since 09/30/2019 there may be some new atelectatic changes at the right base. Linear scarring or atelectasis in the L mid lung field. -LE Duplex: No evidence of DVT -EKG: NORMAL SINUS RHYTHM ABNORMAL QRS-T ANGLE, CONSIDER PRIMARY T WAVE ABNORMALITY -Physical exam shows CTABL Chronic Anemia likely 2/2 CKD -Epo Alpha DC'd by Nephrology -Monitor Hgb 7.6 Today (9) --> 9.2 (98) --> 8.7 (910) Acute on Likely Chronic Diastolic CHF (Poor Medical Treatment/Records, as ptn was previously treated in [place]) -ECHO: EF: 60-65% -LA mildly dilated Hx of HTN -BP remains elevated. Consider uptitrating hydralazine -Continue Amlodine -Continue Coreg -Continue Hydralazine: Changed to 35 TID from 50BID for better control. -Continue ASA DM -Previously on Metformin, will DC on discharge 2/2 CKD and risk of LA -Januvia 25mg qdaily -Atorvastatin 2/2 DM and Cardiac Risk Factor Equivalent -ISS w/ BGM Hypocalcemia 2/2 ESRD -Continue Phoslo Hypokalemia -Monitor K+ -Replete as needed Social Work -Social Work Consulted: Working with medicare to obtain outpatient dialysis placement. Likely end of October. -Monitor immigration status and DC planning -Cleared for DC by Vascular per their note. FEN Fluids: No standing fluids, limit excessive fluid intake Electrolytes: Follow as needed Nutrition: Renal Diet Dispo: Continue med/surg management. FU social work w/ goal of outpatient hemodialysis Visit type Visit type - Emergency Visit Emergency Visit: No - New Patient This patient is new to me today: No - Critical Care Critical Care patient: No - Discharge Referral Referred to [facility] Med [facility] No - Medication Review Med list reviewed for High Risk Meds patients 65 and older: Yes ATTENDING PHYSICIAN STATEMENT I saw and evaluated the patient. I reviewed the resident's note and discussed the case with the resident. I agree with the resident's findings and plan as documented. SUBJECTIVE: OBJECTIVE: ASSESSMENT AND PLAN:
--- NOTE | 2019-10-27 16:44 | EKG ---
Test Reason : Blood Pressure : / mmHG Vent. Rate : 066 BPM Atrial Rate : 066 BPM P-R Int : 166 ms QRS Dur : 080 ms QT Int : 412 ms P-R-T Axes : 071 042 106 degrees QTc Int : 431 ms NORMAL SINUS RHYTHM ABNORMAL QRS-T ANGLE, CONSIDER PRIMARY T WAVE ABNORMALITY ABNORMAL ECG WHEN COMPARED WITH ECG OF 06-OCT-2019 13:34, ST NO LONGER DEPRESSED IN LATERAL LEADS T WAVE INVERSION NO LONGER EVIDENT IN LATERAL LEADS Confirmed by EDYTA ZARAGOZA MD ([id number]) on 10/27/2019 4:44:15 PM Referred By: Confirmed By:EDYTA ZARAGOZA MD
--- NOTE | 2019-10-27 17:08 | PN ---
Teaching Attending Note Name of Resident: Yan Celis ATTENDING PHYSICIAN STATEMENT I saw and evaluated the patient. I reviewed the resident's note and discussed the case with the resident. I agree with the resident's findings and plan as documented. SUBJECTIVE: No new event OBJECTIVE: Vital Signs Temperature 97.9 F 10/27/19 14:49 Pulse Rate 67 10/27/19 14:49 Respiratory Rate 20 10/27/19 14:49 Blood Pressure 147/74 10/27/19 14:49 O2 Sat by Pulse Oximetry (%) 100 10/27/19 14:49 PE:per resident's note CBCD WBC 5.3 K/mm3 (4.0-10.0) 10/26/19 11:00 RBC 2.88 M/mm3 (4.00-5.60) L 10/26/19 11:00 Hgb 8.7 GM/dL (11.7-16.9) L 10/26/19 11:00 Hct 26.4 % (35.4-49) L 10/26/19 11:00 MCV 91.6 fl (80-96) 10/26/19 11:00 MCHC 32.8 g/dl (32.0-35.9) 10/26/19 11:00 RDW 16.1 % (11.9-15.9) H 10/26/19 11:00 Plt Count 115 K/MM3 (134-434) L 10/26/19 11:00 MPV 9.2 fl (7.5-11.1) 10/26/19 11:00 CMP Sodium 140 mmol/L (136-145) 10/26/19 11:00 Potassium 3.3 mmol/L (3.5-5.1) L 10/26/19 11:00 Chloride 100 mmol/L (98-107) 10/26/19 11:00 Carbon Dioxide 31 mmol/L (21-32) 10/26/19 11:00 Anion Gap 8 MMOL/L (8-16) 10/26/19 11:00 BUN 24.1 mg/dL (7-18) H 10/26/19 11:00 Creatinine 3.2 mg/dL (0.55-1.3) H 10/26/19 11:00 Random Glucose 185 mg/dL (74-106) H 10/26/19 11:00 Calcium 8.4 mg/dL (8.5-10.1) L 10/26/19 11:00 Total Bilirubin 0.6 mg/dL (0.2-1) 10/26/19 11:00 AST 10 U/L (15-37) L 10/26/19 11:00 ALT 26 U/L (13-61) 10/26/19 11:00 Alkaline Phosphatase 61 U/L (45-117) 10/26/19 11:00 Total Protein 6.2 g/dl (6.4-8.2) L 10/26/19 11:00 Albumin 3.1 g/dl (3.4-5.0) L 10/26/19 11:00 CARDIAC ENZYMES Creatine Kinase 48 U/L (26-308) 10/26/19 11:00 Troponin I 0.03 ng/ml (0.00-0.05) 10/26/19 11:00 Current Medications Generic Name Dose Route Start Last Admin Trade Name Freq PRN Reason Stop Dose Admin Amlodipine Besylate 10 mg 10/14/19 10:00 10/27/19 09:17 Norvasc - PO 10 mg DAILY MAT Administration Aspirin 81 mg 10/14/19 10:00 10/27/19 09:18 Ecotrin - PO 81 mg DAILY MAT Administration Atorvastatin Calcium 10 mg 10/13/19 22:00 10/26/19 21:56 Lipitor - PO 10 mg HS MAT Administration Calcitriol 0.25 mcg 10/24/19 11:30 10/27/19 09:17 Rocaltrol - PO 0.25 mcg DAILY MAT Administration Calcium Acetate 667 mg 10/14/19 08:00 10/27/19 11:37 Phoslo - PO 667 mg TIDCM MAT Administration Carvedilol 12.5 mg 10/13/19 22:00 10/27/19 09:18 Coreg - PO 12.5 mg BID MAT Administration Docusate Sodium 100 mg 10/13/19 22:00 10/27/19 13:52 Colace - PO 100 mg TID MAT Administration Fentanyl 50 mcg 10/13/19 18:10 10/13/19 18:30 Sublimaze Injection - IVPUSH 50 mcg [id number] PRN Administration PAIN-PACU ORDER X 4 DOSES ONLY Hydralazine HCl 25 mg/ 35 mg 10/21/19 22:00 10/27/19 13:52 Hydralazine HCl 10 mg PO 35 mg TID MAT Administration Insulin Aspart 1 vial 10/13/19 22:00 10/27/19 11:51 Novolog Vial Sliding Scale - SQ 2 units ACHS MAT Administration Protocol Losartan Potassium 50 mg 10/20/19 10:45 10/27/19 09:18 Cozaar - PO 50 mg DAILY MAT Administration Ondansetron HCl 4 mg 10/13/19 18:10 Zofran Injection IVPUSH Q6H PRN NAUSEA AND/OR VOMITING Polyethylene Glycol 17 gm 10/13/19 22:00 10/27/19 09:19 Miralax (For Daily Use) - PO Not Given BID MAT Promethazine HCl 12.5 mg 10/13/19 18:10 Phenergan Injection - IVPUSH Q6H PRN NAUSEA-FOR RESCUE AFTER 15 MIN Sitagliptin Phosphate 25 mg 10/14/19 07:00 10/27/19 06:31 Januvia - PO 25 mg DAILY@0700 MAT Administration Home Medications Medication Instructions Recorded Amlodipine Besylate [Norvasc -] 10 mg PO DAILY 09/27/19 Irbesartan [Avapro] 300 mg PO DAILY 09/27/19 metFORMIN HCL [Metformin HCl] 850 mg PO DAILY 09/27/19 ASSESSMENT AND PLAN: This patient is a 69yom with pMHX of HTN, non-insulin dependent Diabetes Mellitus, Cardiomyopathy w/ preserved EF, and CKD, presented to the ED with SoB, syncope, LE edema and was noted to have severe diabetic nephropathy and hyperkalemia requiring HD. Perm-a-cath placement was performed, and dialysis achieved, subsequently, a left AVF was placed by the Vascular Team. no new events #ESRD on HD continue due to having severe untreated diabetic nephropathy #Chronic Anemia due to CKD #Acute on Chronic Diastolic CHF on HD ; ECHO: EF: 60-65%, LA mildly dilated # Hx of HTN continue meds #T2DM on SS with coverage #Hypocalcemia due to ESRD, Continue Phoslo #Hypokalemia : Monitor K+, Replete as needed # Social Work on the case , waiting for placement for outpatient dialysis , still pending DVt Px: SCDs
[2019-10-27] MEDS: ATORVASTATIN CA 10 MG TABLET (FP) PO SCH (21:52)
[2019-10-28] MEDS: CARVEDILOL 12.5 MG TABLET (FP) PO SCH ×3 (00:48→21:31)
[2019-10-28] MEDS: hydrALAZINE HCL 25 MG, hydrALAZINE HCL 10 MG PO SCH ×3 (06:40→21:31)
[2019-10-28] MEDS: DOCUSATE SODIUM 100 MG CAPSULE (FP) PO SCH ×3 (06:40→21:30)
[2019-10-28] MEDS: INSULIN SLIDING SCALE (NOVOLOG) 1 VIAL SQ SCH ×4 (06:41→21:34)
[2019-10-28] MEDS ORDERED: EPOETIN ALFA 10,000 UNIT/1 ML VIAL IVPUSH ONE (07:16)
[2019-10-28] MEDS ORDERED: SODIUM CHLORIDE 250 ML IV PRN (07:16)
--- NOTE | 2019-10-28 08:05 | PN ---
Progress Note, Physician History of Present Illness: Mr. Vuong is a 69 year old male (. [facility]) with a significant past medical history of HTN, DM, CHF, and renal dysfunction, who presents to the ED with 4 months of bilateral LE edema. As per patient, he presented to the ED from the [facility] secondary to receiving inadequate care. Patient also endorses one month of intermittent shortness of breath, chest pain on exertion, bilateral kidney pain and 4 episodes of syncope last week, with head injury. Denies fever, chills, headache, nausea, vomiting, or urinary changes. - Current Medication List Current Medications: Active Medications Amlodipine Besylate (Norvasc -) 10 mg PO DAILY [facility] Last Admin: 10/27/19 09:17 Dose: 10 mg Documented by: Aspirin (Ecotrin -) 81 mg PO DAILY [facility] Last Admin: 10/27/19 09:18 Dose: 81 mg Documented by: Atorvastatin Calcium (Lipitor -) 10 mg PO HS [facility] Last Admin: 10/27/19 21:52 Dose: 10 mg Documented by: Calcitriol (Rocaltrol -) 0.25 mcg PO DAILY [facility] Last Admin: 10/27/19 09:17 Dose: 0.25 mcg Documented by: Calcium Acetate (Phoslo -) 667 mg PO TIDCM [facility] Last Admin: 10/27/19 17:12 Dose: 667 mg Documented by: Carvedilol (Coreg -) 12.5 mg PO BID [facility] Last Admin: 10/28/19 00:48 Dose: 12.5 mg Documented by: Docusate Sodium (Colace -) 100 mg PO TID [facility] Last Admin: 10/28/19 06:40 Dose: 100 mg Documented by: Fentanyl (Sublimaze Injection -) 50 mcg IVPUSH [id number] PRN PRN Reason: PAIN-PACU ORDER X 4 DOSES ONLY Last Admin: 10/13/19 18:30 Dose: 50 mcg Documented by: Hydralazine HCl 25 mg/ (Hydralazine HCl 10 mg) 35 mg PO TID [facility] Last Admin: 10/28/19 06:40 Dose: Not Given Documented by: Sodium Chloride (Normal Saline -) 250 mls @ 3,000 mls/hr IV PRN PRN PRN Reason: Hypotension during Dialysis Stop: 10/29/19 07:16 Insulin Aspart (Novolog Vial Sliding Scale -) 1 vial SQ [facility]; Protocol Last Admin: 10/28/19 06:41 Dose: Not Given Documented by: Losartan Potassium (Cozaar -) 50 mg PO DAILY [facility] Last Admin: 10/27/19 09:18 Dose: 50 mg Documented by: Ondansetron HCl (Zofran Injection) 4 mg IVPUSH Q6H PRN PRN Reason: NAUSEA AND/OR VOMITING Polyethylene Glycol (Miralax (For Daily Use) -) 17 gm PO BID [facility] Last Admin: 10/27/19 21:53 Dose: Not Given Documented by: Promethazine HCl (Phenergan Injection -) 12.5 mg IVPUSH Q6H PRN PRN Reason: NAUSEA-FOR RESCUE AFTER 15 MIN Sitagliptin Phosphate (Januvia -) 25 mg PO DAILY@0700 [facility] Last Admin: 10/28/19 06:40 Dose: 25 mg Documented by: - Objective Vital Signs: Vital Signs Temperature 99.1 F 10/28/19 06:00 Pulse Rate 78 10/28/19 06:00 Respiratory Rate 18 10/28/19 06:00 Blood Pressure 161/80 10/28/19 06:00 O2 Sat by Pulse Oximetry (%) 95 10/28/19 06:00 Eyes: Yes: WNL, Conjunctiva Clear, EOM Intact HENT: Yes: WNL, Atraumatic, Normocephalic Neck: Yes: WNL, Supple, Trachea Midline Cardiovascular: Yes: WNL, Regular Rate and Rhythm Respiratory: Yes: WNL, Regular, CTA Bilaterally Gastrointestinal: Yes: WNL, Normal Bowel Sounds Genitourinary: Yes: WNL Musculoskeletal: Yes: WNL Extremities: Yes: WNL Edema: No Integumentary: Yes: WNL Neurological: Yes: WNL, Alert, Oriented ...Motor Strength: WNL Psychiatric: Yes: WNL Labs: CBC, BMP 10/26/19 11:00 10/26/19 11:00 INR, PTT INR 1.03 (0.83-1.09) 09/25/19 00:09 Problem List - Problems (1) Diabetes Code(s): E11.9 - TYPE 2 DIABETES MELLITUS WITHOUT COMPLICATIONS (2) Hyperkalemia Code(s): E87.5 - HYPERKALEMIA (3) Hypertension Code(s): I10 - ESSENTIAL (PRIMARY) HYPERTENSION (4) Kidney failure Code(s): N19 - UNSPECIFIED KIDNEY FAILURE Qualifiers: Renal failure chronicity: acute on chronic Assessment/Plan ESRD; on hemodialysis s/p AV fistula Syncope anemia: on SOPHIE severe hyperkalemia s/p rhabdomyolysis HTN diastolic CHF elevated TNI; stress MIBI now shows small area of mildly intense inferior ischemia EKG: NSR; ? old septal infarct ECHO: normal LVEF; abnormal diastolic compliance; mild-moderate LVH; small pericardial effusion Rec: s/p renal biopsy Increased amlodipine to 10 mg daily; increased hydralazine to 35 mg bid; continue Coreg 12.5 bid; losartan 50 mg daily, and may increase dose;f/u BP and HR serially. Aggressive BP, lipid, glucose control. Cholesterol: LDL 68; HDL 45; continue atorvastatin; follow heart-healthy diet; increase exercise. Continue hemodialysis per electrical repairer.
[2019-10-28 08:54] LABS: HEMATOCRIT 28.1 % (35.4-49); HEMOGLOBIN 9.1 GM/dL (11.7-16.9); MCH 29.4 pg (25.7-33.7); MCHC 32.2 g/dl (32.0-35.9); MEAN CELL VOLUME 91.3 fl (80-96); MEAN PLT VOLUME 9.1 fl (7.5-11.1); PLATELET COUNT 114 K/MM3 (134-434); RBC 3.08 M/mm3 (4.00-5.60); RDW 15.8 % (11.9-15.9); WHITE BLOOD COUNT 5.9 K/mm3 (4.0-10.0)
[2019-10-28 09:19] LABS: CALCIUM 8.8 mg/dL (8.5-10.1); CREATININE 6.3 mg/dL (0.55-1.3); PHOSPHOROUS 3.8 mg/dL (2.5-4.9); POTASSIUM 4.1 mmol/L (3.5-5.1)
[2019-10-28 09:27] LABS: BLOOD UREA NITROGEN 49.2 mg/dL (7-18)
[2019-10-28] MEDS: CALCIUM ACETATE 667 MG CAPSULE (FP) PO SCH ×3 (10:14→17:20)
[2019-10-28] MEDS: POLYETHYLENE GLYCOL 3350 119 GM BTL PO SCH ×2 (10:15→21:31)
[2019-10-28] MEDS: CALCITRIOL 0.25 MCG CAPSULE (FP) PO SCH (11:34)
[2019-10-28] MEDS: amLODIPine BESYLATE 5 MG TABLET (FP) PO SCH (11:35)
[2019-10-28] MEDS: LOSARTAN POTASSIUM 50 MG TABLET (FP) PO SCH (11:36)
[2019-10-28] MEDS: ASPIRIN COATED 81 MG TABLET.EC PO SCH (11:36)
[2019-10-28] MEDS ORDERED: hydrALAZINE HCL 10 MG TABLET ONE ×2 (13:16→20:49)
[2019-10-28] MEDS ORDERED: hydrALAZINE HCL 25 MG TABLET (FP) ONE ×2 (13:16→20:49)
--- NOTE | 2019-10-28 13:51 | PN ---
Progress Note, Physician Chief Complaint: Renal failure History of Present Illness: Seen and examined at the bedside awake and alert s/p dialysis earlier today with 2L UF shortness of breath improved following dialysis no fever or chils - Current Medication List Current Medications: Active Medications Amlodipine Besylate (Norvasc -) 10 mg PO DAILY [facility] Last Admin: 10/28/19 11:35 Dose: 10 mg Documented by: Aspirin (Ecotrin -) 81 mg PO DAILY [facility] Last Admin: 10/28/19 11:36 Dose: 81 mg Documented by: Atorvastatin Calcium (Lipitor -) 10 mg PO HS [facility] Last Admin: 10/27/19 21:52 Dose: 10 mg Documented by: Calcitriol (Rocaltrol -) 0.25 mcg PO DAILY [facility] Last Admin: 10/28/19 11:34 Dose: 0.25 mcg Documented by: Calcium Acetate (Phoslo -) 667 mg PO TIDCM [facility] Last Admin: 10/28/19 11:35 Dose: 667 mg Documented by: Carvedilol (Coreg -) 12.5 mg PO BID [facility] Last Admin: 10/28/19 11:35 Dose: 12.5 mg Documented by: Docusate Sodium (Colace -) 100 mg PO TID [facility] Last Admin: 10/28/19 13:18 Dose: 100 mg Documented by: Fentanyl (Sublimaze Injection -) 50 mcg IVPUSH [id number] PRN PRN Reason: PAIN-PACU ORDER X 4 DOSES ONLY Last Admin: 10/13/19 18:30 Dose: 50 mcg Documented by: Hydralazine HCl 25 mg/ (Hydralazine HCl 10 mg) 35 mg PO TID [facility] Last Admin: 10/28/19 13:18 Dose: 35 mg Documented by: Sodium Chloride (Normal Saline -) 250 mls @ 3,000 mls/hr IV PRN PRN PRN Reason: Hypotension during Dialysis Stop: 10/29/19 07:16 Insulin Aspart (Novolog Vial Sliding Scale -) 1 vial SQ ACHS [facility]; Protocol Last Admin: 10/28/19 11:40 Dose: 2 units Documented by: Losartan Potassium (Cozaar -) 50 mg PO DAILY [facility] Last Admin: 10/28/19 11:36 Dose: 50 mg Documented by: Ondansetron HCl (Zofran Injection) 4 mg IVPUSH Q6H PRN PRN Reason: NAUSEA AND/OR VOMITING Polyethylene Glycol (Miralax (For Daily Use) -) 17 gm PO BID [facility] Last Admin: 10/28/19 10:15 Dose: Not Given Documented by: Promethazine HCl (Phenergan Injection -) 12.5 mg IVPUSH Q6H PRN PRN Reason: NAUSEA-FOR RESCUE AFTER 15 MIN Sitagliptin Phosphate (Januvia -) 25 mg PO DAILY@0700 [facility] Last Admin: 10/28/19 06:40 Dose: 25 mg Documented by: - Objective Vital Signs: Vital Signs Temperature 98.5 F 10/28/19 08:10 Pulse Rate 80 10/28/19 11:20 Respiratory Rate 18 10/28/19 11:20 Blood Pressure 147/64 10/28/19 11:20 O2 Sat by Pulse Oximetry (%) 95 10/28/19 09:00 Constitutional: Yes: No Distress, Calm HENT: Yes: Atraumatic Neck: Yes: Supple Cardiovascular: Yes: Regular Rate and Rhythm Respiratory: Yes: Regular, CTA Bilaterally Gastrointestinal: Yes: Soft Extremities: No: Cyanosis Edema: No Labs: CBC, BMP 10/28/19 08:15 10/28/19 08:15 INR, PTT INR 1.03 (0.83-1.09) 09/25/19 00:09 Assessment/Plan 69 year old male with history of hypertension, non-insulin dependent DM, cardiomyopathy, and possible CKD who came from the [facility] and presented to the ED with complaints of leg swelling and syncope and found to have renal failure and hyperkalemia. 1. ESRD requiring dialysis secondary to severe diabetic nephropathy (biopsy proven) 2. Hyperkalemia now resolved 3. Volume overload 4. Metabolic acidosis 5. Anemia 6. Hypertension 7. DM not on insulin 9. Cardiomyopathy s/p dialysis earlier today with 2L UF Will start Torsemide 40mg dialy for additional volume control CXR did not show congestion Cardiology following Doppler of the lower extremities negative for DVT s/p AVF placement per vascular, not yet mature enough to use. Still awaiting insurance authorization for outpatient dialysis placement. SPOHIE give with dialysis for anemia Renal diet Continue Losartan 50mg daily Discharge once outpatient dialysis is secured. Next planned dialysis is Thursday. Thank you Luiz Galdamez DO
--- NOTE | 2019-10-28 14:14 | PN ---
Physical Exam: SUBJECTIVE: Patient seen and examined, denies any further shortness of breath. Is using incentive spirometer. OBJECTIVE: Vital Signs Period Temp Pulse Resp BP Sys/Lopes Pulse Ox Last 24 Hr 97.9 F-99.1 F 67-80 18-20 129-172/56-94 94-100 GENERAL: The patient is awake, alert, and fully oriented, in no acute distress. HEAD: Normal with no signs of trauma. EYES: PERRL, extraocular movements intact NECK: Trachea midline, full range of motion, supple. LUNGS: Breath sounds equal, clear to auscultation bilaterally, no wheezes, no crackles, no accessory muscle use. HEART: Regular rate and rhythm, S1, S2 without murmur, rub or gallop. ABDOMEN: R sided CVA tenderness. Soft, nontender, nondistended, normoactive bowel sounds. EXTREMITIES: Left sided AVF notable for bruising, but decreasing. 2+ pulses, warm, well-perfused, no edema. NEUROLOGICAL: Normal speech, gait not observed. PSYCH: Normal mood, normal affect. SKIN: Warm, dry, normal turgor, no rashes or lesions noted Laboratory Results - last 24 hr CBC, BMP 10/28/19 08:15 10/28/19 08:15 Active Medications Generic Name Dose Route Start Last Admin Trade Name Los PRN Reason Stop Dose Admin Amlodipine Besylate 10 mg 10/14/19 10:00 10/28/19 11:35 Norvasc - PO 10 mg DAILY MAT Administration Aspirin 81 mg 10/14/19 10:00 10/28/19 11:36 Ecotrin - PO 81 mg DAILY MAT Administration Atorvastatin Calcium 10 mg 10/13/19 22:00 10/27/19 21:52 Lipitor - PO 10 mg HS MAT Administration Calcitriol 0.25 mcg 10/24/19 11:30 10/28/19 11:34 Rocaltrol - PO 0.25 mcg DAILY MAT Administration Calcium Acetate 667 mg 10/14/19 08:00 10/28/19 11:35 Phoslo - PO 667 mg TIDCM MAT Administration Carvedilol 12.5 mg 10/13/19 22:00 10/28/19 11:35 Coreg - PO 12.5 mg BID MAT Administration Docusate Sodium 100 mg 10/13/19 22:00 10/28/19 13:18 Colace - PO 100 mg TID MAT Administration Fentanyl 50 mcg 10/13/19 18:10 10/13/19 18:30 Sublimaze Injection - IVPUSH 50 mcg [id number] PRN Administration PAIN-PACU ORDER X 4 DOSES ONLY Hydralazine HCl 25 mg/ 35 mg 10/21/19 22:00 10/28/19 13:18 Hydralazine HCl 10 mg PO 35 mg TID MAT Administration Sodium Chloride 250 mls @ 3,000 mls/hr 10/28/19 07:16 Normal Saline - IV 10/29/19 07:16 PRN PRN Hypotension during Dialysis Insulin Aspart 1 vial 10/13/19 22:00 10/28/19 11:40 Novolog Vial Sliding Scale - SQ 2 units ACHS MAT Administration Protocol Losartan Potassium 50 mg 10/20/19 10:45 10/28/19 11:36 Cozaar - PO 50 mg DAILY MAT Administration Ondansetron HCl 4 mg 10/13/19 18:10 Zofran Injection IVPUSH Q6H PRN NAUSEA AND/OR VOMITING Polyethylene Glycol 17 gm 10/13/19 22:00 10/28/19 10:15 Miralax (For Daily Use) - PO Not Given BID MAT Promethazine HCl 12.5 mg 10/13/19 18:10 Phenergan Injection - IVPUSH Q6H PRN NAUSEA-FOR RESCUE AFTER 15 MIN Sitagliptin Phosphate 25 mg 10/14/19 07:00 10/28/19 06:40 Januvia - PO 25 mg DAILY@0700 MAT Administration Torsemide 40 mg 10/29/19 10:00 Demadex - PO DAILY MAT ASSESSMENT/PLAN: 69 yo M citizen of , currently visiting his nephew and undocumented in the [place], with PMHx of hypertension, non-insulin dependent Diabetes Mellitus, Cardiomyopathy w/ preserved EF, and CKD, presented to the ED with SoB, syncope, LE edema and was noted to have severe diabetic nephropathy and hyperkalemia requiring HD. Permacath placement was performed, and dialysis achieved, subsequently, a left AVF was placed by the Vascular Team. ESRD secondary to severe untreated diabetic nephropathy -AVF Placed on 10/12 --> waiting to mature -Permacath remains in place -Dialysis MWF -Pre-Dialysis Labs per Nephro New Onset Shortness of Breath: RESOLVED -CXR: Since 09/30/2019 there may be some new atelectatic changes at the right base. Linear scarring or atelectasis in the L mid lung field. -LE Duplex: No evidence of DVT -EKG: NORMAL SINUS RHYTHM ABNORMAL QRS-T ANGLE, CONSIDER PRIMARY T WAVE ABNORMALITY -Physical exam shows CTABL Chronic Anemia likely 2/2 CKD -Monitor Hgb 7.6 Today (10/19) --> 9.2 (10/24) --> 8.7 (10/26) --> 9.1 (10/27) Acute on Likely Chronic Diastolic CHF (Poor Medical Treatment/Records, as ptn was previously treated in ) -ECHO: EF: 60-65% -LA mildly dilated Hx of HTN -BP remains elevated. Consider uptitrating hydralazine -Continue Amlodine -Continue Coreg -Continue Hydralazine: Changed to 35 TID from 50BID for better control. -Continue ASA DM -Previously on Metformin, will DC on discharge 2/2 CKD and risk of LA -Januvia 25mg qdaily -Atorvastatin 2/2 DM and Cardiac Risk Factor Equivalent -ISS w/ BGM Hypocalcemia 2/2 ESRD: RESOLVED -Continue Phoslo Hypokalemia: RESOLVED -Monitor K+ -Replete as needed Social Work -Social Work Consulted: Working with medicare to obtain outpatient dialysis placement. Likely end of October. -Monitor immigration status and DC planning -Cleared for DC by Vascular per their note. FEN Fluids: No standing fluids, limit excessive fluid intake Electrolytes: Follow as needed Nutrition: Renal Diet Dispo: Continue med/surg management. FU social work w/ goal of outpatient hemodialysis Visit type - Emergency Visit Emergency Visit: No - New Patient This patient is new to me today: No - Critical Care Critical Care patient: No - Discharge Referral Referred to [facility] Med [facility] No - Medication Review Med list reviewed for High Risk Meds patients 65 and older: Yes ATTENDING PHYSICIAN STATEMENT I saw and evaluated the patient. I reviewed the resident's note and discussed the case with the resident. I agree with the resident's findings and plan as documented. SUBJECTIVE: OBJECTIVE: ASSESSMENT AND PLAN:
--- NOTE | 2019-10-28 17:20 | PN ---
Teaching Attending Note Name of Resident: Yan Celis ATTENDING PHYSICIAN STATEMENT I saw and evaluated the patient. I reviewed the resident's note and discussed the case with the resident. I agree with the resident's findings and plan as documented. SUBJECTIVE: OBJECTIVE: Vital Signs Temperature 97.0 F L 10/28/19 14:38 Pulse Rate 72 10/28/19 14:38 Respiratory Rate 18 10/28/19 14:38 Blood Pressure 140/60 10/28/19 14:38 O2 Sat by Pulse Oximetry (%) 95 10/28/19 09:00 PE;per resident's note CBCD WBC 5.9 K/mm3 (4.0-10.0) 10/28/19 08:15 RBC 3.08 M/mm3 (4.00-5.60) L 10/28/19 08:15 Hgb 9.1 GM/dL (11.7-16.9) L 10/28/19 08:15 Hct 28.1 % (35.4-49) L 10/28/19 08:15 MCV 91.3 fl (80-96) 10/28/19 08:15 MCHC 32.2 g/dl (32.0-35.9) 10/28/19 08:15 RDW 15.8 % (11.9-15.9) 10/28/19 08:15 Plt Count 114 K/MM3 (134-434) L 10/28/19 08:15 MPV 9.1 fl (7.5-11.1) 10/28/19 08:15 CMP Sodium 138 mmol/L (136-145) 10/28/19 08:15 Potassium 4.1 mmol/L (3.5-5.1) 10/28/19 08:15 Chloride 102 mmol/L (98-107) 10/28/19 08:15 Carbon Dioxide 28 mmol/L (21-32) 10/28/19 08:15 Anion Gap 7 MMOL/L (8-16) L 10/28/19 08:15 BUN 49.2 mg/dL (7-18) H 10/28/19 08:15 Creatinine 6.3 mg/dL (0.55-1.3) H 10/28/19 08:15 Random Glucose 170 mg/dL (74-106) H 10/28/19 08:15 Calcium 8.8 mg/dL (8.5-10.1) 10/28/19 08:15 Total Bilirubin 0.6 mg/dL (0.2-1) 10/26/19 11:00 AST 10 U/L (15-37) L 10/26/19 11:00 ALT 26 U/L (13-61) 10/26/19 11:00 Alkaline Phosphatase 61 U/L (45-117) 10/26/19 11:00 Total Protein 6.2 g/dl (6.4-8.2) L 10/26/19 11:00 Albumin 3.1 g/dl (3.4-5.0) L 10/26/19 11:00 CARDIAC ENZYMES Creatine Kinase 48 U/L (26-308) 10/26/19 11:00 Troponin I 0.03 ng/ml (0.00-0.05) 10/26/19 11:00 Current Medications Generic Name Dose Route Start Last Admin Trade Name Freq PRN Reason Stop Dose Admin Amlodipine Besylate 10 mg 10/14/19 10:00 10/28/19 11:35 Norvasc - PO 10 mg DAILY MAT Administration Aspirin 81 mg 10/14/19 10:00 10/28/19 11:36 Ecotrin - PO 81 mg DAILY MAT Administration Atorvastatin Calcium 10 mg 10/13/19 22:00 10/27/19 21:52 Lipitor - PO 10 mg HS MAT Administration Calcitriol 0.25 mcg 10/24/19 11:30 10/28/19 11:34 Rocaltrol - PO 0.25 mcg DAILY MAT Administration Calcium Acetate 667 mg 10/14/19 08:00 10/28/19 11:35 Phoslo - PO 667 mg TIDCM MAT Administration Carvedilol 12.5 mg 10/13/19 22:00 10/28/19 11:35 Coreg - PO 12.5 mg BID MAT Administration Docusate Sodium 100 mg 10/13/19 22:00 10/28/19 13:18 Colace - PO 100 mg TID MAT Administration Fentanyl 50 mcg 10/13/19 18:10 10/13/19 18:30 Sublimaze Injection - IVPUSH 50 mcg [id number] PRN Administration PAIN-PACU ORDER X 4 DOSES ONLY Hydralazine HCl 25 mg/ 35 mg 10/21/19 22:00 10/28/19 13:18 Hydralazine HCl 10 mg PO 35 mg TID MAT Administration Sodium Chloride 250 mls @ 3,000 mls/hr 10/28/19 07:16 Normal Saline - IV 10/29/19 07:16 PRN PRN Hypotension during Dialysis Insulin Aspart 1 vial 10/13/19 22:00 10/28/19 11:40 Novolog Vial Sliding Scale - SQ 2 units ACHS MAT Administration Protocol Losartan Potassium 50 mg 10/20/19 10:45 10/28/19 11:36 Cozaar - PO 50 mg DAILY MAT Administration Ondansetron HCl 4 mg 10/13/19 18:10 Zofran Injection IVPUSH Q6H PRN NAUSEA AND/OR VOMITING Polyethylene Glycol 17 gm 10/13/19 22:00 10/28/19 10:15 Miralax (For Daily Use) - PO Not Given BID MAT Promethazine HCl 12.5 mg 10/13/19 18:10 Phenergan Injection - IVPUSH Q6H PRN NAUSEA-FOR RESCUE AFTER 15 MIN Sitagliptin Phosphate 25 mg 10/14/19 07:00 10/28/19 06:40 Januvia - PO 25 mg DAILY@0700 MAT Administration Torsemide 40 mg 10/29/19 10:00 Demadex - PO DAILY [facility] TO [facility] Home Medications Medication Instructions Recorded Amlodipine Besylate [Norvasc -] 10 mg PO DAILY 09/27/19 Irbesartan [Avapro] 300 mg PO DAILY 09/27/19 metFORMIN HCL [Metformin HCl] 850 mg PO DAILY 09/27/19 Microbiology 09/25/19 01:00 Urine - Urine Clean Catch Urine Culture - Final NO GROWTH OBTAINED ASSESSMENT AND PLAN: This patient is a 69yom with pMHX of HTN, non-insulin dependent Diabetes Mellitus, Cardiomyopathy w/ preserved EF, and CKD, presented to the ED with SoB, syncope, LE edema and was noted to have severe diabetic nephropathy and hyperkalemia requiring HD. Perm-a-cath placement was performed, and dialysis achieved, subsequently, a left AVF was placed by the Vascular Team. no new events continue to monitor until his discharge since pending outpatient dialysis placement #ESRD on HD continue due to having severe untreated diabetic nephropathy #Chronic Anemia due to CKD #Acute on Chronic Diastolic CHF on HD ; ECHO: EF: 60-65%, LA mildly dilated # Hx of HTN continue meds #T2DM on SS with coverage #Hypocalcemia due to ESRD, Continue Phoslo #Hypokalemia : Monitor K+, Replete as needed # Social Work on the case , waiting for placement for outpatient dialysis , still pending DVt Px: SCDs
[2019-10-28] MEDS: ATORVASTATIN CA 10 MG TABLET (FP) PO SCH (21:31)
[2019-10-29] MEDS ORDERED: hydrALAZINE HCL 25 MG TABLET (FP) ONE ×3 (06:01→21:04)
[2019-10-29] MEDS ORDERED: hydrALAZINE HCL 10 MG TABLET ONE ×3 (06:01→21:04)
[2019-10-29] MEDS: hydrALAZINE HCL 25 MG, hydrALAZINE HCL 10 MG PO SCH ×3 (06:28→21:21)
[2019-10-29] MEDS: INSULIN SLIDING SCALE (NOVOLOG) 1 VIAL SQ SCH ×4 (06:28→21:22)
[2019-10-29] MEDS: DOCUSATE SODIUM 100 MG CAPSULE (FP) PO SCH ×3 (06:28→21:22)
[2019-10-29] MEDS: CALCIUM ACETATE 667 MG CAPSULE (FP) PO SCH ×3 (08:10→16:53)
[2019-10-29] MEDS: ASPIRIN COATED 81 MG TABLET.EC PO SCH (09:36)
[2019-10-29] MEDS: POLYETHYLENE GLYCOL 3350 119 GM BTL PO SCH ×2 (09:37→21:22)
[2019-10-29] MEDS: LOSARTAN POTASSIUM 50 MG TABLET (FP) PO SCH (09:37)
[2019-10-29] MEDS: amLODIPine BESYLATE 5 MG TABLET (FP) PO SCH (09:37)
[2019-10-29] MEDS: CALCITRIOL 0.25 MCG CAPSULE (FP) PO SCH (09:37)
[2019-10-29] MEDS: CARVEDILOL 12.5 MG TABLET (FP) PO SCH ×2 (09:37→21:22)
[2019-10-29] MEDS: TORSEMIDE 20 MG TABLET (FP) PO SCH (09:37)
--- NOTE | 2019-10-29 09:41 | PN ---
Progress Note, Physician Chief Complaint: No new complaint History of Present Illness: 69yom with pMHX of HTN, non-insulin dependent Diabetes Mellitus, Cardiomyopathy w/ preserved EF, and CKD, presented to the ED with SoB, syncope, LE edema and was noted to have severe diabetic nephropathy and hyperkalemia requiring HD. Perm-a-cath placement was performed, and dialysis achieved, subsequently, a left AVF was placed by the Vascular Team. - Current Medication List Current Medications: Active Medications Amlodipine Besylate (Norvasc -) 10 mg PO DAILY [facility] Last Admin: 10/29/19 09:37 Dose: 10 mg Documented by: Aspirin (Ecotrin -) 81 mg PO DAILY [facility] Last Admin: 10/29/19 09:36 Dose: 81 mg Documented by: Atorvastatin Calcium (Lipitor -) 10 mg PO HS [facility] Last Admin: 10/28/19 21:31 Dose: 10 mg Documented by: Calcitriol (Rocaltrol -) 0.25 mcg PO DAILY [facility] Last Admin: 10/29/19 09:37 Dose: 0.25 mcg Documented by: Calcium Acetate (Phoslo -) 667 mg PO TIDCM [facility] Last Admin: 10/29/19 08:10 Dose: 667 mg Documented by: Carvedilol (Coreg -) 12.5 mg PO BID [facility] Last Admin: 10/29/19 09:37 Dose: 12.5 mg Documented by: Docusate Sodium (Colace -) 100 mg PO TID [facility] Last Admin: 10/29/19 06:28 Dose: 100 mg Documented by: Fentanyl (Sublimaze Injection -) 50 mcg IVPUSH [id number] PRN PRN Reason: PAIN-PACU ORDER X 4 DOSES ONLY Last Admin: 10/13/19 18:30 Dose: 50 mcg Documented by: Hydralazine HCl 25 mg/ (Hydralazine HCl 10 mg) 35 mg PO TID [facility] Last Admin: 10/29/19 06:28 Dose: 35 mg Documented by: Insulin Aspart (Novolog Vial Sliding Scale -) 1 vial SQ [facility]; Protocol Last Admin: 10/29/19 06:28 Dose: Not Given Documented by: Losartan Potassium (Cozaar -) 50 mg PO DAILY [facility] Last Admin: 10/29/19 09:37 Dose: 50 mg Documented by: Ondansetron HCl (Zofran Injection) 4 mg IVPUSH Q6H PRN PRN Reason: NAUSEA AND/OR VOMITING Polyethylene Glycol (Miralax (For Daily Use) -) 17 gm PO BID [facility] Last Admin: 10/29/19 09:37 Dose: Not Given Documented by: Promethazine HCl (Phenergan Injection -) 12.5 mg IVPUSH Q6H PRN PRN Reason: NAUSEA-FOR RESCUE AFTER 15 MIN Sitagliptin Phosphate (Januvia -) 25 mg PO DAILY@0700 [facility] Last Admin: 10/29/19 06:28 Dose: 25 mg Documented by: Torsemide (Demadex -) 40 mg PO DAILY [facility] Last Admin: 10/29/19 09:37 Dose: 40 mg Documented by: - Objective Vital Signs: Vital Signs Temperature 98.7 F 10/29/19 06:00 Pulse Rate 91 H 10/29/19 06:00 Respiratory Rate 18 10/29/19 06:00 Blood Pressure 139/60 10/29/19 06:00 O2 Sat by Pulse Oximetry (%) 97 10/29/19 06:00 General: Elderly man, comfortable, not in distress HEENT mucous membranes moist, no anemia, no jaundice, PERRLA, no nystagmus Neck: No JVD, supple, no bruit, thyroid palpably normal, normal carotid pulsations. Chest: Nontender, clear to auscultation bilaterally/bilateral wheezing/bilateral basal rales. CVS: S1-S2 regular/irregular no murmur/gallop/rub Abdomen: Nondistended, soft, bowel sounds present. Extremities: No edema., No Calf tenderness, pulses present [employer]: AO X3 , no gross motor sensory deficit Labs: CBC, BMP 10/28/19 08:15 10/28/19 08:15 INR, PTT INR 1.03 (0.83-1.09) 09/25/19 00:09 Problem List - Problems (1) ESRD (end stage renal disease) Assessment/Plan: ESRD on HD continue due to having severe untreated diabetic nephropathy Code(s): N18.6 - END STAGE RENAL DISEASE (2) Diabetes Assessment/Plan: Type 2 diabetes mellitus optimize glycemic control Problems reviewed: Yes Code(s): E11.9 - TYPE 2 DIABETES MELLITUS WITHOUT COMPLICATIONS (3) Heart failure with preserved ejection fraction Assessment/Plan: Acute on Chronic Diastolic CHF on HD ; ECHO: EF: 60-65%, LA mildly dilated Code(s): I50.30 - UNSPECIFIED DIASTOLIC (CONGESTIVE) HEART FAILURE (4) Hypertension Assessment/Plan: Well-controlled continue current medic Code(s): I10 - ESSENTIAL (PRIMARY) HYPERTENSION (5) Elevated troponin Assessment/Plan: Due to demand ischemia Code(s): R79.89 - OTHER SPECIFIED ABNORMAL FINDINGS OF BLOOD CHEMISTRY (6) Anemia of chronic disease Assessment/Plan: H&H are stable Problems reviewed: Yes Code(s): D63.8 - ANEMIA IN OTHER CHRONIC DISEASES CLASSIFIED ELSEWHERE
[2019-10-29] MEDS ORDERED: INSULIN (NOVOLOG) ASPART 100 UNITS/ML 10ML VIAL ONE ×2 (11:07→21:06)
--- NOTE | 2019-10-29 14:36 | PN ---
Progress Note, Physician Chief Complaint: Pt A&Ox3; no longer SOB; no chest pain. History of Present Illness: Mr. Vuong is a 69 year old male (b. [facility]) with a significant past medical history of HTN, DM, CHF, and renal dysfunction, who presents to the ED with 4 months of bilateral LE edema. As per patient, he presented to the ED from the [facility] secondary to receiving inadequate care. Patient also endorses one month of intermittent shortness of breath, occasional mild sharp central chest pain on exertion lasting a few seconds, bilateral kidney pain and 4 episodes of syncope last week, with head injury. Denies fever, chills, headache, nausea, vomiting, or urinary changes. - Current Medication List Current Medications: Active Medications Amlodipine Besylate (Norvasc -) 10 mg PO DAILY [facility] Last Admin: 10/29/19 09:37 Dose: 10 mg Documented by: Aspirin (Ecotrin -) 81 mg PO DAILY [facility] Last Admin: 10/29/19 09:36 Dose: 81 mg Documented by: Atorvastatin Calcium (Lipitor -) 10 mg PO HS [facility] Last Admin: 10/28/19 21:31 Dose: 10 mg Documented by: Calcitriol (Rocaltrol -) 0.25 mcg PO DAILY [facility] Last Admin: 10/29/19 09:37 Dose: 0.25 mcg Documented by: Calcium Acetate (Phoslo -) 667 mg PO TIDCM [facility] Last Admin: 10/29/19 11:39 Dose: 667 mg Documented by: Carvedilol (Coreg -) 12.5 mg PO BID [facility] Last Admin: 10/29/19 09:37 Dose: 12.5 mg Documented by: Docusate Sodium (Colace -) 100 mg PO TID [facility] Last Admin: 10/29/19 14:18 Dose: 100 mg Documented by: Fentanyl (Sublimaze Injection -) 50 mcg IVPUSH [id number] PRN PRN Reason: PAIN-PACU ORDER X 4 DOSES ONLY Last Admin: 10/13/19 18:30 Dose: 50 mcg Documented by: Hydralazine HCl 25 mg/ (Hydralazine HCl 10 mg) 35 mg PO TID [facility] Last Admin: 10/29/19 14:18 Dose: 35 mg Documented by: Insulin Aspart (Novolog Vial Sliding Scale -) [address] [facility]; Protocol Last Admin: 10/29/19 11:41 Dose: 2 units Documented by: Losartan Potassium (Cozaar -) 50 mg PO DAILY [facility] Last Admin: 10/29/19 09:37 Dose: 50 mg Documented by: Ondansetron HCl (Zofran Injection) 4 mg IVPUSH Q6H PRN PRN Reason: NAUSEA AND/OR VOMITING Polyethylene Glycol (Miralax (For Daily Use) -) 17 gm PO BID [facility] Last Admin: 10/29/19 09:37 Dose: Not Given Documented by: Promethazine HCl (Phenergan Injection -) 12.5 mg IVPUSH Q6H PRN PRN Reason: NAUSEA-FOR RESCUE AFTER 15 MIN Sitagliptin Phosphate (Januvia -) 25 mg PO DAILY@0700 [facility] Last Admin: 10/29/19 06:28 Dose: 25 mg Documented by: Torsemide (Demadex -) 40 mg PO DAILY [facility] Last Admin: 10/29/19 09:37 Dose: 40 mg Documented by: - Objective Vital Signs: Vital Signs Temperature 98.7 F 10/29/19 06:00 Pulse Rate 91 H 10/29/19 06:00 Respiratory Rate 18 10/29/19 09:00 Blood Pressure 139/60 10/29/19 06:00 O2 Sat by Pulse Oximetry (%) 97 10/29/19 09:00 Constitutional: Yes: No Distress Eyes: Yes: WNL HENT: Yes: WNL Neck: Yes: WNL Cardiovascular: Yes: Regular Rate and Rhythm Respiratory: Yes: WNL Gastrointestinal: Yes: Soft ...Rectal Exam: Yes: Deferred Genitourinary: Yes: Other (HD 3x/wk). No: Anuria Musculoskeletal: Yes: Muscle Weakness Extremities: Yes: Cool Edema: No Peripheral Pulses WNL: Yes Integumentary: Yes: Incision (left arm AVG) Wound/Incision: Yes: Dressing Dry and Intact Neurological: Yes: Alert, Oriented, Weakness Psychiatric: Yes: Alert, Oriented, Other (anxiety) Labs: CBC, BMP 10/28/19 08:15 10/28/19 08:15 INR, PTT INR 1.03 (0.83-1.09) 09/25/19 00:09 Abnormal Lab Results 10/30/19 10/30/19 08:48 08:48 RBC 2.84 L Hgb 8.6 L Hct 26.2 L Plt Count 130 L Monocytes % 10.4 H Eosinophils % 5.6 H BUN 67.8 H Creatinine 7.1 H Random Glucose 216 H - ....Imaging Chest X-ray: Image Reviewed EKG: Image Reviewed Assessment/Plan dyspnea: resolved Acute/chronic diastolic CHF ESRD; on hemodialysis HTN hypokalemia (hx severe hyperkalemia) s/p AV fistula Syncope anemia: on SOPHIE s/p rhabdomyolysis elevated TNI; stress MIBI shows small area of mildly intense inferior ischemia EKG: NSR; ? old septal infarct ECHO: normal LVEF; abnormal diastolic compliance; mild-moderate LVH; small pericardial effusion Rec: CXR: no acute pathology EKG: NSR: no longer with STT changes O2 sat: 97% on RA. trooponin level: 0.03 Replete K, f/u Mg; s/p hemodialysis 10/26/19; f/u with print line inspector regarding electrolytes, fluid status. s/p renal biopsy On amlodipine 10 mg daily. Hydralazine 35 mg bid; Coreg 12.5 bid; losartan 50 mg daily, and may increase doses as needed;f/u BP and HR serially. Aggressive BP, lipid, glucose control. Cholesterol: LDL 68; HDL 45; continue atorvastatin.
[2019-10-29] MEDS: ATORVASTATIN CA 10 MG TABLET (FP) PO SCH (21:22)
[2019-10-30] MEDS ORDERED: hydrALAZINE HCL 10 MG TABLET ONE ×2 (06:07→20:49)
[2019-10-30] MEDS ORDERED: hydrALAZINE HCL 25 MG TABLET (FP) ONE ×2 (06:07→20:49)
[2019-10-30] MEDS: DOCUSATE SODIUM 100 MG CAPSULE (FP) PO SCH ×3 (06:17→21:10)
[2019-10-30] MEDS: hydrALAZINE HCL 25 MG, hydrALAZINE HCL 10 MG PO SCH ×2 (06:17→21:09)
[2019-10-30] MEDS: INSULIN SLIDING SCALE (NOVOLOG) 1 VIAL SQ SCH ×4 (06:17→21:15)
[2019-10-30] MEDS: CALCIUM ACETATE 667 MG CAPSULE (FP) PO SCH ×3 (08:33→17:01)
[2019-10-30 09:20] LABS: BASO % 0.6 % (0-2.0); EOS % 5.6 % (0-4.5); HEMATOCRIT 26.2 % (35.4-49); HEMOGLOBIN 8.6 GM/dL (11.7-16.9); MCH 30.4 pg (25.7-33.7); MCHC 32.9 g/dl (32.0-35.9); MEAN CELL VOLUME 92.4 fl (80-96); MEAN PLT VOLUME 9.2 fl (7.5-11.1); MONO % 10.4 % (3.8-10.2); NEUT % 68.4 % (42.8-82.8); PLATELET COUNT 130 K/MM3 (134-434); RBC 2.84 M/mm3 (4.00-5.60); RDW 15.9 % (11.9-15.9); WHITE BLOOD COUNT 6.5 K/mm3 (4.0-10.0)
--- NOTE | 2019-10-30 09:26 | PN ---
Teaching Attending Note Name of Resident: Maral Bledsoe ATTENDING PHYSICIAN STATEMENT I saw and evaluated the patient. I reviewed the resident's note and discussed the case with the resident. I agree with the resident's findings and plan as documented. SUBJECTIVE: OBJECTIVE: Vital Signs Temperature 98.2 F 10/30/19 06:00 Pulse Rate 70 10/30/19 06:00 Respiratory Rate 18 10/30/19 06:00 Blood Pressure 150/66 10/30/19 06:00 O2 Sat by Pulse Oximetry (%) 96 10/30/19 06:00 General: Elderly man, comfortable, not in distress HEENT mucous membranes moist, no anemia, no jaundice, PERRLA, no nystagmus Neck: No JVD, supple, no bruit, thyroid palpably normal, normal carotid pulsations. Chest: Nontender, clear to auscultation bilaterally/bilateral wheezing/bilateral basal rales. CVS: S1-S2 regular/irregular no murmur/gallop/rub Abdomen: Nondistended, soft, bowel sounds present. Extremities: No edema., No Calf tenderness, pulses present PICK [employer]: AO X3 , no gross motor sensory deficit Active Medications Amlodipine Besylate (Norvasc -) 10 mg PO DAILY [facility] Last Admin: 10/29/19 09:37 Dose: 10 mg Documented by: Aspirin (Ecotrin -) 81 mg PO DAILY [facility] Last Admin: 10/29/19 09:36 Dose: 81 mg Documented by: Atorvastatin Calcium (Lipitor -) 10 mg PO HS [facility] Last Admin: 10/28/19 21:31 Dose: 10 mg Documented by: Calcitriol (Rocaltrol -) 0.25 mcg PO DAILY [facility] Last Admin: 10/29/19 09:37 Dose: 0.25 mcg Documented by: Calcium Acetate (Phoslo -) 667 mg PO TIDCM [facility] Last Admin: 10/29/19 08:10 Dose: 667 mg Documented by: Carvedilol (Coreg -) 12.5 mg PO BID [facility] Last Admin: 10/29/19 09:37 Dose: 12.5 mg Documented by: Docusate Sodium (Colace -) 100 mg PO TID [facility] Last Admin: 10/29/19 06:28 Dose: 100 mg Documented by: Fentanyl (Sublimaze Injection -) 50 mcg IVPUSH [id number] PRN PRN Reason: PAIN-PACU ORDER X 4 DOSES ONLY Last Admin: 10/13/19 18:30 Dose: 50 mcg Documented by: Hydralazine HCl 25 mg/ (Hydralazine HCl 10 mg) 35 mg PO TID [facility] Last Admin: 10/29/19 06:28 Dose: 35 mg Documented by: Insulin Aspart (Novolog Vial Sliding Scale -) 1 vial SQ ACHS [facility]; Protocol Last Admin: 10/29/19 06:28 Dose: Not Given Documented by: Losartan Potassium (Cozaar -) 50 mg PO DAILY [facility] Last Admin: 10/29/19 09:37 Dose: 50 mg Documented by: Ondansetron HCl (Zofran Injection) 4 mg IVPUSH Q6H PRN PRN Reason: NAUSEA AND/OR VOMITING Polyethylene Glycol (Miralax (For Daily Use) -) 17 gm PO BID [facility] Last Admin: 10/29/19 09:37 Dose: Not Given Documented by: Promethazine HCl (Phenergan Injection -) 12.5 mg IVPUSH Q6H PRN PRN Reason: NAUSEA-FOR RESCUE AFTER 15 MIN Sitagliptin Phosphate (Januvia -) 25 mg PO DAILY@0700 [facility] Last Admin: 10/29/19 06:28 Dose: 25 mg Documented by: Torsemide (Demadex -) 40 mg PO DAILY [facility] Last Admin: 10/29/19 09:37 Dose: 40 mg Documented by: ASSESSMENT AND PLAN:9yom with pMHX of HTN, non-insulin dependent Diabetes Mellitus, Cardiomyopathy w/ preserved EF, and CKD, presented to the ED with SoB, syncope, LE edema and was noted to have severe diabetic nephropathy and hyperkalemia requiring HD. Perm-a-cath placement was performed, and dialysis achieved, subsequently, a left AVF was placed by the Vascular Team. Problem List - Problems (1) ESRD (end stage renal disease) Assessment/Plan: ESRD on HD continue due to having severe untreated diabetic nephropathy Code(s): N18.6 - END STAGE RENAL DISEASE (2) Diabetes Assessment/Plan: Type 2 diabetes mellitus optimize glycemic control Code(s): E11.9 - TYPE 2 DIABETES MELLITUS WITHOUT COMPLICATIONS (3) Heart failure with preserved ejection fraction Assessment/Plan: Acute on Chronic Diastolic CHF on HD ; ECHO: EF: 60-65%, LA mildly dilated Code(s): I50.30 - UNSPECIFIED DIASTOLIC (CONGESTIVE) HEART FAILURE (4) Hypertension Assessment/Plan: Well-controlled continue current medic Code(s): I10 - ESSENTIAL (PRIMARY) HYPERTENSION (5) Elevated troponin Assessment/Plan: Due to demand ischemia Code(s): R79.89 - OTHER SPECIFIED ABNORMAL FINDINGS OF BLOOD CHEMISTRY (6) Anemia of chronic disease Assessment/Plan: H&H are stable Code(s): D63.8 - ANEMIA IN OTHER CHRONIC DISEASES CLASSIFIED ELSEWHERE
[2019-10-30] MEDS: ASPIRIN COATED 81 MG TABLET.EC PO SCH (09:35)
[2019-10-30] MEDS: CARVEDILOL 12.5 MG TABLET (FP) PO SCH ×2 (09:36→21:10)
[2019-10-30] MEDS: amLODIPine BESYLATE 5 MG TABLET (FP) PO SCH (09:36)
[2019-10-30] MEDS: CALCITRIOL 0.25 MCG CAPSULE (FP) PO SCH (09:36)
[2019-10-30] MEDS: TORSEMIDE 20 MG TABLET (FP) PO SCH (09:36)
[2019-10-30] MEDS: LOSARTAN POTASSIUM 50 MG TABLET (FP) PO SCH (09:36)
[2019-10-30] MEDS: POLYETHYLENE GLYCOL 3350 119 GM BTL PO SCH ×2 (09:40→21:25)
[2019-10-30 10:03] LABS: POTASSIUM 4.2 mmol/L (3.5-5.1)
[2019-10-30 10:10] LABS: BLOOD UREA NITROGEN 67.8 mg/dL (7-18); CALCIUM 9.2 mg/dL (8.5-10.1); CREATININE 7.1 mg/dL (0.55-1.3)
[2019-10-30] MEDS ORDERED: INSULIN (NOVOLOG) ASPART 100 UNITS/ML 10ML VIAL ONE ×2 (11:54→21:12)
--- NOTE | 2019-10-30 13:00 | PN ---
Physical Exam: SUBJECTIVE: Patient seen and examined. No acute overnight events. For HD tomorrow. OBJECTIVE: Vital Signs Period Temp Pulse Resp BP Sys/Lopes Pulse Ox Last 24 Hr 98.1 F-98.6 F 68-81 18-18 142-154/61-70 94-97 GENERAL: The patient is awake, alert, and fully oriented, in no acute distress. NECK: no JVD; no lymphadenopathy LUNGS: CTA B/L no rales, rhonchi or wheezing. HEART: Regular rate and rhythm, S1, S2 without murmur, rub or gallop. ABDOMEN: Soft, NT ND +BS EXTREMITIES: 2+ pulses, warm, well-perfused, no edema. SKIN: Warm, dry, normal turgor, no rashes or lesions noted Laboratory Results - last 24 hr 10/29/19 10/29/19 10/30/19 16:52 21:13 06:16 WBC RBC Hgb Hct MCV MCH MCHC RDW Plt Count MPV Absolute Neuts (auto) Neutrophils % Lymphocytes % Monocytes % Eosinophils % Basophils % Nucleated RBC % Sodium Potassium Chloride Carbon Dioxide Anion Gap BUN Creatinine Est GFR (CKD-EPI)AfAm Est GFR (CKD-EPI)NonAf POC Glucometer 169 132 140 Random Glucose Calcium 10/30/19 10/30/19 10/30/19 08:48 08:48 11:45 WBC 6.5 RBC 2.84 L Hgb 8.6 L Hct 26.2 L MCV 92.4 MCH 30.4 MCHC 32.9 RDW 15.9 Plt Count 130 L MPV 9.2 Absolute Neuts (auto) 4.4 Neutrophils % 68.4 Lymphocytes % 15.0 Monocytes % 10.4 H Eosinophils % 5.6 H Basophils % 0.6 Nucleated RBC % 0 Sodium 139 Potassium 4.2 Chloride 102 Carbon Dioxide 28 Anion Gap 9 BUN 67.8 H Creatinine 7.1 H Est GFR (CKD-EPI)AfAm 8.34 Est GFR (CKD-EPI)NonAf 7.20 POC Glucometer 170 Random Glucose 216 H Calcium 9.2 Active Medications Generic Name Dose Route Start Last Admin Trade Name Freq PRN Reason Stop Dose Admin Amlodipine Besylate 10 mg 10/14/19 10:00 10/30/19 09:36 Norvasc - PO 10 mg DAILY MAT Administration Aspirin 81 mg 10/14/19 10:10/30/19 09:35 Ecotrin - PO 81 mg DAILY MAT Administration Atorvastatin Calcium 10 mg 10/13/19 22:00 10/29/19 21:22 Lipitor - PO 10 mg HS MAT Administration Calcitriol 0.25 mcg 10/24/19 11:30 10/30/19 09:36 Rocaltrol - PO 0.25 mcg DAILY MAT Administration Calcium Acetate 667 mg 10/14/19 08:00 10/30/19 11:57 Phoslo - PO 667 mg TIDCM MAT Administration Carvedilol 12.5 mg 10/13/19 22:00 10/30/19 09:36 Coreg - PO 12.5 mg BID MAT Administration Docusate Sodium 100 mg 10/13/19 22:00 10/30/19 06:17 Colace - PO 100 mg TID MAT Administration Fentanyl 50 mcg 10/13/19 18:10 10/13/19 18:30 Sublimaze Injection - IVPUSH 50 mcg [id number] PRN Administration PAIN-PACU ORDER X 4 DOSES ONLY Hydralazine HCl 25 mg/ 35 mg 10/21/19 22:00 10/30/19 06:17 Hydralazine HCl 10 mg PO 35 mg TID MAT Administration Insulin Aspart 1 vial 10/13/19 22:00 10/30/19 11:56 Novolog Vial Sliding Scale - SQ 2 units ACHS MAT Administration Protocol Losartan Potassium 50 mg 10/20/19 10:45 10/30/19 09:36 Cozaar - PO 50 mg DAILY MAT Administration Ondansetron HCl 4 mg 10/13/19 18:10 Zofran Injection IVPUSH Q6H PRN NAUSEA AND/OR VOMITING Polyethylene Glycol 17 gm 10/13/19 22:00 10/30/19 09:40 Miralax (For Daily Use) - PO 17 gm BID MAT Administration Promethazine HCl 12.5 mg 10/13/19 18:10 Phenergan Injection - IVPUSH Q6H PRN NAUSEA-FOR RESCUE AFTER 15 MIN Sitagliptin Phosphate 25 mg 10/14/19 07:00 10/30/19 06:17 Januvia - PO 25 mg DAILY@0700 MAT Administration Torsemide 40 mg 10/29/19 10:00 10/30/19 09:36 Demadex - PO 40 mg DAILY MAT Administration ASSESSMENT/PLAN: 69 y.o. M from [facility] [place] with PMH of hypertension, non-insulin dependent Diabetes Mellitus, Cardiomyopathy w/ preserved EF, and CKD, presented to the ED with SOB, syncope, LE edema and was admitted for severe diabetic nephropathy and hyperkalemia requiring HD. Permacath placement was performed, and dialysis achieved, subsequently, a left AVF was placed by the Vascular Team. #ESRD likely secondary to severe untreated diabetic nephropathy -AVF Placed on 10/12 -Permacath remains in place as AVF matures -continue HD M/W/F with SOPHIE -Renal following (Dr. Galdamez)- Torsemide 40mg daily added -SW in process of setting up on outpatient HD #Normocytic Anemia 2/2 CKD -One dose Iron sucrose given -continue to monitor Hgb -cont SOPHIE with HD #Acute on Likely Chronic Diastolic CHF -ECHO: EF: 60-65% -LA mildly dilated -c/w torsemide #Hx of HTN -Continue Coreg 12.5 BID, Cozaar 50mg daily, Hydralazine 35mg BID, Amlodipine 10mg/d -Continue ASA #Small pericardial effusion -small -will f/u with cardio outpatient - Dr. Badillo following #DM -Previously on Metformin, will DC on discharge 2/2 CKD -Januvia 25mg qdaily -ISS, BGM ACHS #Hypocalcemia 2/2 ESRD -Continue Phoslo, calcitriol #HLD -c/w lipitor #Social Work -Social Work Consulted: Working to obtain outpatient dialysis placement. -Monitor placement status and DC planning -Cleared for DC by Vascular #FEN -Fluids: No standing fluids, limit excessive fluid intake -Electrolytes: monitor prn -utrition: Renal Diet Dispo: Continue m/s management, patient pending outpatient HD placement Visit type - Emergency Visit Emergency Visit: No - New Patient This patient is new to me today: No - Critical Care Critical Care patient: No - Medication Review Med list reviewed for High Risk Meds patients 65 and older: Yes ATTENDING PHYSICIAN STATEMENT I saw and evaluated the patient. I reviewed the resident's note and discussed the case with the resident. I agree with the resident's findings and plan as documented. SUBJECTIVE: OBJECTIVE: ASSESSMENT AND PLAN:
[2019-10-30] MEDS: ATORVASTATIN CA 10 MG TABLET (FP) PO SCH (21:10)
--- NOTE | 2019-10-31 02:35 | PN ---
Progress Note, Physician Chief Complaint: Pt A&Ox3; no longer SOB; no chest pain. Pt shows his use of spirometer. Pt's cousin is visiting. History of Present Illness: Mr. Vuong is a 69 year old male (b. [facility]) with a significant past medical history of HTN, DM, CHF, and renal dysfunction, who presents to the ED with 4 months of bilateral LE edema. As per patient, he presented to the ED from the [facility] secondary to receiving inadequate care. Patient also endorses one month of intermittent shortness of breath, occasional mild sharp central chest pain on exertion lasting a few seconds, bilateral kidney pain and 4 episodes of syncope last week, with head injury. Denies fever, chills, headache, nausea, vomiting, or urinary changes. - Current Medication List Current Medications: Active Medications Amlodipine Besylate (Norvasc -) 10 mg PO DAILY [facility] Last Admin: 10/30/19 09:36 Dose: 10 mg Documented by: Aspirin (Ecotrin -) 81 mg PO DAILY [facility] Last Admin: 10/30/19 09:35 Dose: 81 mg Documented by: Atorvastatin Calcium (Lipitor -) 10 mg PO HS [facility] Last Admin: 10/30/19 21:10 Dose: 10 mg Documented by: Calcitriol (Rocaltrol -) 0.25 mcg PO DAILY [facility] Last Admin: 10/30/19 09:36 Dose: 0.25 mcg Documented by: Calcium Acetate (Phoslo -) 667 mg PO TIDCM [facility] Last Admin: 10/30/19 17:01 Dose: 667 mg Documented by: Carvedilol (Coreg -) 12.5 mg PO BID [facility] Last Admin: 10/30/19 21:10 Dose: 12.5 mg Documented by: Docusate Sodium (Colace -) 100 mg PO TID [facility] Last Admin: 10/30/19 21:10 Dose: 100 mg Documented by: Fentanyl (Sublimaze Injection -) 50 mcg IVPUSH [id number] PRN PRN Reason: PAIN-PACU ORDER X 4 DOSES ONLY Last Admin: 10/13/19 18:30 Dose: 50 mcg Documented by: Hydralazine HCl 25 mg/ (Hydralazine HCl 10 mg) 35 mg PO BID [facility] Last Admin: 10/30/19 21:09 Dose: 35 mg Documented by: Insulin Aspart (Novolog Vial Sliding Scale -) 1 vial SQ ACHS [facility]; Protocol Last Admin: 10/30/19 21:15 Dose: 2 units Documented by: Losartan Potassium (Cozaar -) 50 mg PO DAILY [facility] Last Admin: 10/30/19 09:36 Dose: 50 mg Documented by: Ondansetron HCl (Zofran Injection) 4 mg IVPUSH Q6H PRN PRN Reason: NAUSEA AND/OR VOMITING Polyethylene Glycol (Miralax (For Daily Use) -) 17 gm PO BID [facility] Last Admin: 10/30/19 21:25 Dose: Not Given Documented by: Promethazine HCl (Phenergan Injection -) 12.5 mg IVPUSH Q6H PRN PRN Reason: NAUSEA-FOR RESCUE AFTER 15 MIN Sitagliptin Phosphate (Januvia -) 25 mg PO DAILY@0700 [facility] Last Admin: 10/30/19 06:17 Dose: 25 mg Documented by: Torsemide (Demadex -) 40 mg PO DAILY [facility] Last Admin: 10/30/19 09:36 Dose: 40 mg Documented by: - Objective Vital Signs: Vital Signs Temperature 99.2 F 10/30/19 19:16 Pulse Rate 71 10/30/19 21:16 Respiratory Rate 20 10/30/19 21:16 Blood Pressure 138/57 L 10/30/19 21:16 O2 Sat by Pulse Oximetry (%) 96 10/30/19 21:16 Constitutional: Yes: Calm Eyes: Yes: WNL HENT: Yes: WNL Neck: Yes: WNL Cardiovascular: Yes: Regular Rate and Rhythm, S1, S2, S4 Respiratory: Yes: WNL Gastrointestinal: Yes: Soft. No: Tenderness ...Rectal Exam: Yes: Deferred Genitourinary: Yes: Other. No: Anuria Breast(s): Yes: WNL Musculoskeletal: Yes: Muscle Weakness Extremities: Yes: Cool Edema: No Peripheral Pulses WNL: Yes Integumentary: Yes: Incision Wound/Incision: Yes: Dressing Dry and Intact (LUE) Neurological: Yes: Alert, Oriented Psychiatric: Yes: WNL Labs: CBC, BMP 10/30/19 08:48 10/30/19 08:48 INR, PTT INR 1.03 (0.83-1.09) 09/25/19 00:09 Abnormal Lab Results 10/30/19 10/30/19 08:48 08:48 RBC 2.84 L Hgb 8.6 L Hct 26.2 L Plt Count 130 L Monocytes % 10.4 H Eosinophils % 5.6 H BUN 67.8 H Creatinine 7.1 H Random Glucose 216 H - ....Imaging Chest X-ray: Image Reviewed EKG: Image Reviewed Assessment/Plan dyspnea: resolved Acute/chronic diastolic CHF ESRD; on hemodialysis HTN hypokalemia (hx severe hyperkalemia) s/p AV fistula Syncope anemia: on SOPHIE s/p rhabdomyolysis elevated TNI; stress MIBI shows small area of mildly intense inferior ischemia EKG: NSR; ? old septal infarct ECHO: normal LVEF; abnormal diastolic compliance; mild-moderate LVH; small pericardial effusion Rec: CXR: no acute pathology EKG: NSR: no longer with STT changes O2 sat: 97% on RA. trooponin level: 0.03 Repleted K; f/u Mg and keep 2.0-2.4. Continue hemodialysis per supervisor electronics testing. s/p renal biopsy On amlodipine 10 mg daily. Hydralazine 35 mg bid; Coreg 12.5 bid; losartan 50 mg daily, and may increase doses as needed;f/u BP and HR serially. Aggressive BP, lipid, glucose control. Cholesterol: LDL 68; HDL 45; continue atorvastatin 10 mg/day.
[2019-10-31] MEDS: INSULIN SLIDING SCALE (NOVOLOG) 1 VIAL SQ SCH ×4 (06:22→21:07)
[2019-10-31] MEDS: DOCUSATE SODIUM 100 MG CAPSULE (FP) PO SCH ×3 (06:22→21:06)
[2019-10-31] MEDS: CALCIUM ACETATE 667 MG CAPSULE (FP) PO SCH ×3 (08:47→16:51)
[2019-10-31] MEDS ORDERED: SODIUM CHLORIDE 250 ML IV PRN (10:37)
--- NOTE | 2019-10-31 10:42 | PN ---
Progress Note, Physician History of Present Illness: Mr. Vuong is a 69 year old male (. [facility]) with a significant past medical history of HTN, DM, CHF, and renal dysfunction, who presents to the ED with 4 months of bilateral LE edema. As per patient, he presented to the ED from the [facility] secondary to receiving inadequate care. Patient also endorses one month of intermittent shortness of breath, chest pain on exertion, bilateral kidney pain and 4 episodes of syncope last week, with head injury. Denies fever, chills, headache, nausea, vomiting, or urinary changes. - Current Medication List Current Medications: Active Medications Amlodipine Besylate (Norvasc -) 10 mg PO DAILY [facility] Last Admin: 10/30/19 09:36 Dose: 10 mg Documented by: Aspirin (Ecotrin -) 81 mg PO DAILY [facility] Last Admin: 10/30/19 09:35 Dose: 81 mg Documented by: Atorvastatin Calcium (Lipitor -) 10 mg PO HS [facility] Last Admin: 10/30/19 21:10 Dose: 10 mg Documented by: Calcitriol (Rocaltrol -) 0.25 mcg PO DAILY [facility] Last Admin: 10/30/19 09:36 Dose: 0.25 mcg Documented by: Calcium Acetate (Phoslo -) 667 mg PO TIDCM [facility] Last Admin: 10/31/19 08:47 Dose: 667 mg Documented by: Carvedilol (Coreg -) 12.5 mg PO BID [facility] Last Admin: 10/30/19 21:10 Dose: 12.5 mg Documented by: Docusate Sodium (Colace -) 100 mg PO TID [facility] Last Admin: 10/31/19 06:22 Dose: 100 mg Documented by: Epoetin [id number] (Retacrit) 10,000 unit IVPUSH ONCE ONE Stop: 10/31/19 11:01 Fentanyl (Sublimaze Injection -) 50 mcg IVPUSH [id number] PRN PRN Reason: PAIN-PACU ORDER X 4 DOSES ONLY Last Admin: 10/13/19 18:30 Dose: 50 mcg Documented by: Hydralazine HCl 25 mg/ (Hydralazine HCl 10 mg) 35 mg PO BID [facility] Last Admin: 10/30/19 21:09 Dose: 35 mg Documented by: Sodium Chloride (Normal Saline -) 250 mls @ 3,000 mls/hr IV PRN PRN PRN Reason: Hypotension during Dialysis Stop: 11/01/19 10:36 Insulin Aspart (Novolog Vial Sliding Scale -) 1 vial SQ ACHS [facility]; Protocol Last Admin: 10/31/19 06:22 Dose: Not Given Documented by: Losartan Potassium (Cozaar -) 50 mg PO DAILY [facility] Last Admin: 10/30/19 09:36 Dose: 50 mg Documented by: Ondansetron HCl (Zofran Injection) 4 mg IVPUSH Q6H PRN PRN Reason: NAUSEA AND/OR VOMITING Polyethylene Glycol (Miralax (For Daily Use) -) 17 gm PO BID [facility] Last Admin: 10/30/19 21:25 Dose: Not Given Documented by: Promethazine HCl (Phenergan Injection -) 12.5 mg IVPUSH Q6H PRN PRN Reason: NAUSEA-FOR RESCUE AFTER 15 MIN Sitagliptin Phosphate (Januvia -) 25 mg PO DAILY@0700 [facility] Last Admin: 10/31/19 06:22 Dose: 25 mg Documented by: Torsemide (Demadex -) 40 mg PO DAILY [facility] Last Admin: 10/30/19 09:36 Dose: 40 mg Documented by: - Objective Vital Signs: Vital Signs Temperature 98.2 F 10/31/19 05:15 Pulse Rate 67 10/31/19 05:15 Respiratory Rate 20 10/31/19 05:15 Blood Pressure 148/61 10/31/19 05:15 O2 Sat by Pulse Oximetry (%) 95 10/31/19 05:15 Eyes: Yes: WNL, Conjunctiva Clear, EOM Intact HENT: Yes: WNL, Atraumatic, Normocephalic Neck: Yes: WNL, Supple, Trachea Midline Cardiovascular: Yes: WNL, Regular Rate and Rhythm Respiratory: Yes: WNL, Regular, CTA Bilaterally Gastrointestinal: Yes: WNL, Normal Bowel Sounds Genitourinary: Yes: WNL Musculoskeletal: Yes: WNL Extremities: Yes: WNL Edema: No Integumentary: Yes: WNL Neurological: Yes: WNL, Alert, Oriented ...Motor Strength: WNL Psychiatric: Yes: WNL Labs: INR, PTT INR 1.03 (0.83-1.09) 09/25/19 00:09 Problem List - Problems (1) Diabetes Code(s): E11.9 - TYPE 2 DIABETES MELLITUS WITHOUT COMPLICATIONS (2) Hyperkalemia Code(s): E87.5 - HYPERKALEMIA (3) Hypertension Code(s): I10 - ESSENTIAL (PRIMARY) HYPERTENSION (4) Kidney failure Code(s): N19 - UNSPECIFIED KIDNEY FAILURE Qualifiers: Renal failure chronicity: acute on chronic Assessment/Plan dyspnea: resolved Acute/chronic diastolic CHF ESRD; on hemodialysis HTN hypokalemia (hx severe hyperkalemia) s/p AV fistula Syncope anemia: on SOPHIE s/p rhabdomyolysis elevated TNI; stress MIBI shows small area of mildly intense inferior ischemia EKG: NSR; ? old septal infarct ECHO: normal LVEF; abnormal diastolic compliance; mild-moderate LVH; small pericardial effusion Rec: CXR: no acute pathology EKG: NSR: no longer with STT changes O2 sat: 97% on RA. trooponin level: 0.03 Repleted K; f/u Mg and keep 2.0-2.4. Continue hemodialysis per button grader. s/p renal biopsy On amlodipine 10 mg daily. Hydralazine 35 mg bid; Coreg 12.5 bid; losartan 50 mg daily, and may increase doses as needed;f/u BP and HR serially. Aggressive BP, lipid, glucose control. Cholesterol: LDL 68; HDL 45; continue atorvastatin 10 mg/day.
[2019-10-31 10:46] LABS: HEMATOCRIT 24.5 % (35.4-49); MCHC 32.8 g/dl (32.0-35.9); MEAN CELL VOLUME 91.6 fl (80-96); MEAN PLT VOLUME 9.2 fl (7.5-11.1); PLATELET COUNT 127 K/MM3 (134-434); RBC 2.68 M/mm3 (4.00-5.60); RDW 15.9 % (11.9-15.9); WHITE BLOOD COUNT 6.4 K/mm3 (4.0-10.0)
[2019-10-31] MEDS ORDERED: EPOETIN ALFA-EPBX 10,000 UNIT/ML VIAL IVPUSH ONE (11:00)
[2019-10-31 11:25] LABS: BLOOD UREA NITROGEN 84.6 mg/dL (7-18); CALCIUM 8.8 mg/dL (8.5-10.1); PHOSPHOROUS 5.4 mg/dL (2.5-4.9)
[2019-10-31 11:42] LABS: CREATININE 8.2 mg/dL (0.55-1.3)
--- NOTE | 2019-10-31 11:51 | PN ---
Progress Note, Physician Chief Complaint: Renal failure History of Present Illness: Seen and examined at the bedside awake and alert seen while on dialysis BP stable, catheter working well goal UF is 2L no fever or chils No sob or cp over the weekend - Current Medication List Current Medications: Active Medications Amlodipine Besylate (Norvasc -) 10 mg PO DAILY [facility] Last Admin: 10/30/19 09:36 Dose: 10 mg Documented by: Aspirin (Ecotrin -) 81 mg PO DAILY [facility] Last Admin: 10/30/19 09:35 Dose: 81 mg Documented by: Atorvastatin Calcium (Lipitor -) 10 mg PO HS [facility] Last Admin: 10/30/19 21:10 Dose: 10 mg Documented by: Calcitriol (Rocaltrol -) 0.25 mcg PO DAILY [facility] Last Admin: 10/30/19 09:36 Dose: 0.25 mcg Documented by: Calcium Acetate (Phoslo -) 667 mg PO TIDCM [facility] Last Admin: 10/31/19 08:47 Dose: 667 mg Documented by: Carvedilol (Coreg -) 12.5 mg PO BID [facility] Last Admin: 10/30/19 21:10 Dose: 12.5 mg Documented by: Docusate Sodium (Colace -) 100 mg PO TID [facility] Last Admin: 10/31/19 06:22 Dose: 100 mg Documented by: Fentanyl (Sublimaze Injection -) 50 mcg IVPUSH [id number] PRN PRN Reason: PAIN-PACU ORDER X 4 DOSES ONLY Last Admin: 10/13/19 18:30 Dose: 50 mcg Documented by: Hydralazine HCl 25 mg/ (Hydralazine HCl 10 mg) 35 mg PO BID [facility] Last Admin: 10/30/19 21:09 Dose: 35 mg Documented by: Sodium Chloride (Normal Saline -) 250 mls @ 3,000 mls/hr IV PRN PRN PRN Reason: Hypotension during Dialysis Stop: 11/01/19 10:36 Insulin Aspart (Novolog Vial Sliding Scale -) 1 vial SQ ACHS [facility]; Protocol Last Admin: 10/31/19 06:22 Dose: Not Given Documented by: Losartan Potassium (Cozaar -) 50 mg PO DAILY [facility] Last Admin: 10/30/19 09:36 Dose: 50 mg Documented by: Ondansetron HCl (Zofran Injection) 4 mg IVPUSH Q6H PRN PRN Reason: NAUSEA AND/OR VOMITING Polyethylene Glycol (Miralax (For Daily Use) -) 17 gm PO BID [facility] Last Admin: 10/30/19 21:25 Dose: Not Given Documented by: Promethazine HCl (Phenergan Injection -) 12.5 mg IVPUSH Q6H PRN PRN Reason: NAUSEA-FOR RESCUE AFTER 15 MIN Sitagliptin Phosphate (Januvia -) 25 mg PO DAILY@0700 [facility] Last Admin: 10/31/19 06:22 Dose: 25 mg Documented by: Torsemide (Demadex -) 40 mg PO DAILY [facility] Last Admin: 10/30/19 09:36 Dose: 40 mg Documented by: - Objective Vital Signs: Vital Signs Temperature 98.2 F 10/31/19 05:15 Pulse Rate 72 10/31/19 11:00 Respiratory Rate 18 10/31/19 11:00 Blood Pressure 139/85 10/31/19 11:00 O2 Sat by Pulse Oximetry (%) 95 10/31/19 05:15 Constitutional: Yes: No Distress, Calm HENT: Yes: Atraumatic Neck: Yes: Supple Cardiovascular: Yes: Regular Rate and Rhythm Respiratory: Yes: Regular, CTA Bilaterally Gastrointestinal: Yes: Soft. No: Tenderness Extremities: No: Cyanosis Edema: No Neurological: Yes: Alert Labs: CBC, BMP 10/31/19 10:00 10/31/19 10:00 INR, PTT INR 1.03 (0.83-1.09) 09/25/19 00:09 Assessment/Plan 69 year old male with history of hypertension, non-insulin dependent DM, cardiomyopathy, and possible CKD who came from the [place] and presented to the ED with complaints of leg swelling and syncope and found to have renal failure and hyperkalemia. 1. ESRD requiring dialysis secondary to severe diabetic nephropathy (biopsy proven) 2. Hyperkalemia now resolved 3. Volume overload 4. Metabolic acidosis 5. Anemia 6. Hypertension 7. DM not on insulin 9. Cardiomyopathy Tolerating dialysis well this AM Continue Torsemide 40mg dialy Cardiology following Doppler of the lower extremities negative for DVT s/p AVF placement per vascular, not yet mature enough to use. Still awaiting insurance authorization for outpatient dialysis placement. SOPHIE give with dialysis for anemia Renal diet Continue Losartan 50mg daily for hypertension. Discharge once outpatient dialysis is secured. Thank you Luiz Galdamez DO
[2019-10-31] MEDS ORDERED: hydrALAZINE HCL 10 MG TABLET ONE ×2 (13:34→20:45)
[2019-10-31] MEDS ORDERED: hydrALAZINE HCL 25 MG TABLET (FP) ONE ×2 (13:35→20:45)
[2019-10-31] MEDS: amLODIPine BESYLATE 5 MG TABLET (FP) PO SCH (13:40)
[2019-10-31] MEDS: ASPIRIN COATED 81 MG TABLET.EC PO SCH (13:40)
[2019-10-31] MEDS: CALCITRIOL 0.25 MCG CAPSULE (FP) PO SCH (13:40)
[2019-10-31] MEDS: hydrALAZINE HCL 25 MG, hydrALAZINE HCL 10 MG PO SCH ×2 (13:41→21:06)
[2019-10-31] MEDS: LOSARTAN POTASSIUM 50 MG TABLET (FP) PO SCH (13:41)
[2019-10-31] MEDS: TORSEMIDE 20 MG TABLET (FP) PO SCH (13:41)
[2019-10-31] MEDS: CARVEDILOL 12.5 MG TABLET (FP) PO SCH ×2 (13:41→21:06)
[2019-10-31] MEDS: POLYETHYLENE GLYCOL 3350 119 GM BTL PO SCH ×2 (13:43→21:07)
--- NOTE | 2019-10-31 15:52 | PN ---
Physical Exam: SUBJECTIVE: Patient seen and examined, endorses no complaints. Will go for dialysis today. OBJECTIVE: Vital Signs Period Temp Pulse Resp BP Sys/Lopes Pulse Ox Last 24 Hr 98.2 F-99.2 F 66-101 18-20 123-157/56-85 94-97 GENERAL: The patient is awake, alert, and fully oriented, in no acute distress. HEAD: Normal with no signs of trauma. EYES: PERRL, extraocular movements intact NECK: Trachea midline, full range of motion, supple. LUNGS: Breath sounds equal, clear to auscultation bilaterally, no wheezes, no crackles, no accessory muscle use. HEART: Regular rate and rhythm, S1, S2 without murmur, rub or gallop. ABDOMEN: R sided CVA tenderness. Soft, nontender, nondistended, normoactive bow el sounds. EXTREMITIES: Left sided AVF notable for bruising, but decreasing. 2+ pulses, warm, well-perfused, no edema. NEUROLOGICAL: Normal speech, gait not observed. PSYCH: Normal mood, normal affect. SKIN: Warm, dry, normal turgor, no rashes or lesions noted Laboratory Results - last 24 hr CBC, BMP 10/31/19 10:10/31/19 10:00 Active Medications Generic Name Dose Route Start Last Admin Trade Name Vinhq PRN Reason Stop Dose Admin Amlodipine Besylate 10 mg 10/14/19 10:00 10/31/19 13:40 Norvasc - PO 10 mg DAILY MAT Administration Aspirin 81 mg 10/14/19 10:00 10/31/19 13:40 Ecotrin - PO 81 mg DAILY MAT Administration Atorvastatin Calcium 10 mg 10/13/19 22:00 10/30/19 21:10 Lipitor - PO 10 mg HS MAT Administration Calcitriol 0.25 mcg 10/24/19 11:30 10/31/19 13:40 Rocaltrol - PO 0.25 mcg DAILY MAT Administration Calcium Acetate 667 mg 10/14/19 08:00 10/31/19 13:40 Phoslo - PO 667 mg TIDCM MAT Administration Carvedilol 12.5 mg 10/13/19 22:00 10/31/19 13:41 Coreg - PO 12.5 mg BID MAT Administration Docusate Sodium 100 mg 10/13/19 22:00 10/31/19 13:40 Colace - PO 100 mg TID MAT Administration Fentanyl 50 mcg 10/13/19 18:10 10/13/19 18:30 Sublimaze Injection - IVPUSH 50 mcg [id number] PRN Administration PAIN-PACU ORDER X 4 DOSES ONLY Hydralazine HCl 25 mg/ 35 mg 10/30/19 22:00 10/31/19 13:41 Hydralazine HCl 10 mg PO 35 mg BID MAT Administration Sodium Chloride 250 mls @ 3,000 mls/hr 10/31/19 10:37 Normal Saline - IV 11/01/19 10:36 PRN PRN Hypotension during Dialysis Insulin Aspart 1 vial 10/13/19 22:00 10/31/19 13:54 Novolog Vial Sliding Scale - SQ Not Given ACHS [facility] Protocol Losartan Potassium 50 mg 10/20/19 10:45 10/31/19 13:41 Cozaar - PO 50 mg DAILY MAT Administration Ondansetron HCl 4 mg 10/13/19 18:10 Zofran Injection IVPUSH Q6H PRN NAUSEA AND/OR VOMITING Polyethylene Glycol 17 gm 10/13/19 22:00 10/31/19 13:43 Miralax (For Daily Use) - PO 17 gm BID MAT Administration Promethazine HCl 12.5 mg 10/13/19 18:10 Phenergan Injection - IVPUSH Q6H PRN NAUSEA-FOR RESCUE AFTER 15 MIN Sitagliptin Phosphate 25 mg 10/14/19 07:00 10/31/19 06:22 Januvia - PO 25 mg DAILY@0700 MAT Administration Torsemide 40 mg 10/29/19 10:00 10/31/19 13:41 Demadex - PO 40 mg DAILY MAT Administration ASSESSMENT/PLAN: 69 yo M citizen of , currently visiting his nephew and undocumented in the [place], with PMHx of hypertension, non-insulin dependent Diabetes Mellitus, Cardiomyopathy w/ preserved EF, and CKD, presented to the ED with SoB, syncope, LE edema and was noted to have severe diabetic nephropathy and hyperkalemia requiring HD. Permacath placement was performed, and dialysis achieved, subsequently, a left AVF was placed by the Vascular Team. ESRD secondary to severe untreated diabetic nephropathy -AVF Placed on 10/12 --> waiting to mature -Permacath remains in place -Dialysis MWF -Pre-Dialysis Labs per Nephro New Onset Shortness of Breath: RESOLVED -CXR: Since 09/30/2019 there may be some new atelectatic changes at the right base. Linear scarring or atelectasis in the L mid lung field. -LE Duplex: No evidence of DVT -EKG: NORMAL SINUS RHYTHM ABNORMAL QRS-T ANGLE, CONSIDER PRIMARY T WAVE ABNORMALITY -Physical exam shows CTABL Chronic Anemia likely 2/2 CKD -Monitor Hgb 7.6 Today (10/19) --> 9.2 (10/24) --> 8.7 (10/26) --> 8.0 (10/30) Acute on Likely Chronic Diastolic CHF (Poor Medical Treatment/Records, as ptn was previously treated in [place]) -ECHO: EF: 60-65% -LA mildly dilated Hx of HTN -BP remains elevated. Consider uptitrating hydralazine -Continue Amlodine -Continue Coreg -Continue Hydralazine: Changed to 35 TID from 50BID for better control. -Continue Demedex -Continue ASA DM -Previously on Metformin, will DC on discharge 2/2 CKD and risk of LA -Januvia 25mg qdaily -Atorvastatin 2/2 DM and Cardiac Risk Factor Equivalent -ISS w/ BGM Hypocalcemia 2/2 ESRD: RESOLVED -Continue Phoslo Hypokalemia: RESOLVED -Monitor K+ -Replete as needed Hyperphosphatemia -Likely 2/2 CKD -On Dialysis Social Work -Social Work Consulted: Working with medicare to obtain outpatient dialysis placement. Likely end of October. -Monitor immigration status and DC planning -Cleared for DC by Vascular per their note. FEN Fluids: No standing fluids, limit excessive fluid intake Electrolytes: Follow as needed Nutrition: Renal Diet Dispo: Continue med/surg management. FU social work w/ goal of outpatient hemodialysis Visit type - Emergency Visit Emergency Visit: No - New Patient This patient is new to me today: No - Critical Care Critical Care patient: No - Discharge Referral Referred to [facility] Med P.C.: No - Medication Review Med list reviewed for High Risk Meds patients 65 and older: Yes ATTENDING PHYSICIAN STATEMENT I saw and evaluated the patient. I reviewed the resident's note and discussed the case with the resident. I agree with the resident's findings and plan as documented. SUBJECTIVE: OBJECTIVE: ASSESSMENT AND PLAN:
--- NOTE | 2019-10-31 16:30 | PN ---
Teaching Attending Note Name of Resident: Yan Celis ATTENDING PHYSICIAN STATEMENT I saw and evaluated the patient. I reviewed the resident's note and discussed the case with the resident. I agree with the resident's findings and plan as documented. SUBJECTIVE: Patient is comfortable with NAD OBJECTIVE: Vital Signs Temperature 99.0 F 10/31/19 15:34 Pulse Rate 101 H 10/31/19 15:34 Respiratory Rate 18 10/31/19 15:34 Blood Pressure 123/58 L 10/31/19 15:34 O2 Sat by Pulse Oximetry (%) 97 10/31/19 15:34 PE: per resident's note CBCD WBC 6.4 K/mm3 (4.0-10.0) 10/31/19 10:00 RBC 2.68 M/mm3 (4.00-5.60) L 10/31/19 10:00 Hgb 8.0 GM/dL (11.7-16.9) L 10/31/19 10:00 Hct 24.5 % (35.4-49) L 10/31/19 10:00 MCV 91.6 fl (80-96) 10/31/19 10:00 MCHC 32.8 g/dl (32.0-35.9) 10/31/19 10:00 RDW 15.9 % (11.9-15.9) 10/31/19 10:00 Plt Count 127 K/MM3 (134-434) L 10/31/19 10:00 MPV 9.2 fl (7.5-11.1) 10/31/19 10:00 CMP Sodium 138 mmol/L (136-145) 10/31/19 10:00 Potassium 4.0 mmol/L (3.5-5.1) 10/31/19 10:00 Chloride 100 mmol/L (98-107) 10/31/19 10:00 Carbon Dioxide 26 mmol/L (21-32) 10/31/19 10:00 Anion Gap 12 MMOL/L (8-16) 10/31/19 10:00 BUN 84.6 mg/dL (7-18) H 10/31/19 10:00 Creatinine 8.2 mg/dL (0.55-1.3) H* 10/31/19 10:00 Random Glucose 225 mg/dL (74-106) H 10/31/19 10:00 Calcium 8.8 mg/dL (8.5-10.1) 10/31/19 10:00 Total Bilirubin 0.6 mg/dL (0.2-1) 10/26/19 11:00 AST 10 U/L (15-37) L 10/26/19 11:00 ALT 26 U/L (13-61) 10/26/19 11:00 Alkaline Phosphatase 61 U/L (45-117) 10/26/19 11:00 Total Protein 6.2 g/dl (6.4-8.2) L 10/26/19 11:00 Albumin 3.1 g/dl (3.4-5.0) L 10/26/19 11:00 CARDIAC ENZYMES Creatine Kinase 48 U/L (26-308) 10/26/19 11:00 Troponin I 0.03 ng/ml (0.00-0.05) 10/26/19 11:00 Current Medications Generic Name Dose Route Start Last Admin Trade Name Freq PRN Reason Stop Dose Admin Amlodipine Besylate 10 mg 10/14/19 10:00 10/31/19 13:40 Norvasc - PO 10 mg DAILY MAT Administration Aspirin 81 mg 10/14/19 10:00 10/31/19 13:40 Ecotrin - PO 81 mg DAILY MAT Administration Atorvastatin Calcium 10 mg 10/13/19 22:00 10/30/19 21:10 Lipitor - PO 10 mg HS MAT Administration Calcitriol 0.25 mcg 10/24/19 11:30 10/31/19 13:40 Rocaltrol - PO 0.25 mcg DAILY MAT Administration Calcium Acetate 667 mg 10/14/19 08:00 10/31/19 13:40 Phoslo - PO 667 mg TIDCM MAT Administration Carvedilol 12.5 mg 10/13/19 22:00 10/31/19 13:41 Coreg - PO 12.5 mg BID MAT Administration Docusate Sodium 100 mg 10/13/19 22:00 10/31/19 13:40 Colace - PO 100 mg TID MAT Administration Fentanyl 50 mcg 10/13/19 18:10 10/13/19 18:30 Sublimaze Injection - IVPUSH 50 mcg [id number] PRN Administration PAIN-PACU ORDER X 4 DOSES ONLY Hydralazine HCl 25 mg/ 35 mg 10/30/19 22:00 10/31/19 13:41 Hydralazine HCl 10 mg PO 35 mg BID MAT Administration Sodium Chloride 250 mls @ 3,000 mls/hr 10/31/19 10:37 Normal Saline - IV 11/01/19 10:36 PRN PRN Hypotension during Dialysis Insulin Aspart 1 vial 10/13/19 22:00 10/31/19 13:54 Novolog Vial Sliding Scale - SQ Not Given ACHS MAT Protocol Losartan Potassium 50 mg 10/20/19 10:45 10/31/19 13:41 Cozaar - PO 50 mg DAILY MAT Administration Ondansetron HCl 4 mg 10/13/19 18:10 Zofran Injection IVPUSH Q6H PRN NAUSEA AND/OR VOMITING Polyethylene Glycol 17 gm 10/13/19 22:00 10/31/19 13:43 Miralax (For Daily Use) - PO 17 gm BID MAT Administration Promethazine HCl 12.5 mg 10/13/19 18:10 Phenergan Injection - IVPUSH Q6H PRN NAUSEA-FOR RESCUE AFTER 15 MIN Sitagliptin Phosphate 25 mg 10/14/19 07:00 10/31/19 06:22 Januvia - PO 25 mg DAILY@0700 MAT Administration Torsemide 40 mg 10/29/19 10:00 10/31/19 13:41 Demadex - PO 40 mg DAILY MAT Administration Home Medications Medication Instructions Recorded Amlodipine Besylate [Norvasc -] 10 mg PO DAILY 09/27/19 Irbesartan [Avapro] 300 mg PO DAILY 09/27/19 metFORMIN HCL [Metformin HCl] 850 mg PO DAILY 09/27/19 Microbiology 09/25/19 01:00 Urine - Urine Clean Catch Urine Culture - Final NO GROWTH OBTAINED ASSESSMENT AND PLAN: This patient is a 69yom with pMHX of HTN, non-insulin dependent Diabetes Mellitus, Cardiomyopathy w/ preserved EF, and CKD, presented to the ED with SoB, syncope, LE edema and was noted to have severe diabetic nephropathy and hyperkalemia requiring HD. Perm-a-cath placement was performed, and dialysis achieved, subsequently, a left AVF was placed by the Vascular Team. no new events continue to monitor until his discharge since pending outpatient dialysis placement #ESRD on HD continue due to having severe untreated diabetic nephropathy #Chronic Anemia due to CKD #Acute on Chronic Diastolic CHF on HD ; ECHO: EF: 60-65%, LA mildly dilated # Hx of HTN continue meds #T2DM on SS with coverage #Hypocalcemia due to ESRD, Continue Phoslo #Hypokalemia : Monitor K+, Replete as needed # Social Work on the case , waiting for placement for outpatient dialysis , still pending DVt Px: SCDs waiting for HD bed outpatient.
[2019-10-31] MEDS: ATORVASTATIN CA 10 MG TABLET (FP) PO SCH (21:06)
[2019-11-01] MEDS: DOCUSATE SODIUM 100 MG CAPSULE (FP) PO SCH ×3 (06:03→21:10)
[2019-11-01] MEDS: INSULIN SLIDING SCALE (NOVOLOG) 1 VIAL SQ SCH ×4 (06:03→21:10)
[2019-11-01] MEDS ORDERED: PT OWN MED DRAWER 7, Y5N ONE (06:46)
[2019-11-01] MEDS: CALCIUM ACETATE 667 MG CAPSULE (FP) PO SCH ×3 (09:00→17:23)
[2019-11-01] MEDS ORDERED: hydrALAZINE HCL 10 MG TABLET ONE ×2 (09:42→20:49)
[2019-11-01] MEDS ORDERED: hydrALAZINE HCL 25 MG TABLET (FP) ONE ×2 (09:42→20:49)
[2019-11-01] MEDS: CALCITRIOL 0.25 MCG CAPSULE (FP) PO SCH (10:04)
[2019-11-01] MEDS: amLODIPine BESYLATE 5 MG TABLET (FP) PO SCH (10:04)
[2019-11-01] MEDS: hydrALAZINE HCL 25 MG, hydrALAZINE HCL 10 MG PO SCH ×2 (10:04→21:11)
[2019-11-01] MEDS: CARVEDILOL 12.5 MG TABLET (FP) PO SCH ×2 (10:05→21:13)
[2019-11-01] MEDS: TORSEMIDE 20 MG TABLET (FP) PO SCH (10:05)
[2019-11-01] MEDS: LOSARTAN POTASSIUM 50 MG TABLET (FP) PO SCH (10:05)
[2019-11-01] MEDS: ASPIRIN COATED 81 MG TABLET.EC PO SCH (10:05)
[2019-11-01] MEDS: POLYETHYLENE GLYCOL 3350 119 GM BTL PO SCH ×2 (10:06→21:13)
[2019-11-01 10:33] VITALS: BMI 24.8
[2019-11-01] MEDS ORDERED: INSULIN (NOVOLOG) ASPART 100 UNITS/ML 10ML VIAL ONE ×2 (11:33→21:07)
[2019-11-01] MEDS ORDERED: SODIUM CHLORIDE 250 ML IV PRN (12:02)
--- NOTE | 2019-11-01 12:02 | PN ---
Progress Note, Physician Chief Complaint: Renal failure History of Present Illness: Seen and examined at the bedside awake and alert no fever or chills No sob or cp feels fatigued immediately after dialysis - Current Medication List Current Medications: Active Medications Amlodipine Besylate (Norvasc -) 10 mg PO DAILY [facility] Last Admin: 11/01/19 10:04 Dose: 10 mg Documented by: Aspirin (Ecotrin -) 81 mg PO DAILY [facility] Last Admin: 11/01/19 10:05 Dose: 81 mg Documented by: Atorvastatin Calcium (Lipitor -) 10 mg PO HS [facility] Last Admin: 10/31/19 21:06 Dose: 10 mg Documented by: Calcitriol (Rocaltrol -) 0.25 mcg PO DAILY [facility] Last Admin: 11/01/19 10:04 Dose: 0.25 mcg Documented by: Calcium Acetate (Phoslo -) 667 mg PO TIDCM [facility] Last Admin: 11/01/19 11:43 Dose: 667 mg Documented by: Carvedilol (Coreg -) 12.5 mg PO BID [facility] Last Admin: 11/01/19 10:05 Dose: 12.5 mg Documented by: Docusate Sodium (Colace -) 100 mg PO TID [facility] Last Admin: 11/01/19 06:03 Dose: 100 mg Documented by: Fentanyl (Sublimaze Injection -) 50 mcg IVPUSH [id number] PRN PRN Reason: PAIN-PACU ORDER X 4 DOSES ONLY Last Admin: 10/13/19 18:30 Dose: 50 mcg Documented by: Hydralazine HCl 25 mg/ (Hydralazine HCl 10 mg) 35 mg PO BID [facility] Last Admin: 11/01/19 10:04 Dose: 35 mg Documented by: Insulin Aspart (Novolog Vial Sliding Scale -) 1 vial SQ [facility]; Protocol Last Admin: 11/01/19 11:43 Dose: 2 units Documented by: Losartan Potassium (Cozaar -) 50 mg PO DAILY [facility] Last Admin: 11/01/19 10:05 Dose: 50 mg Documented by: Ondansetron HCl (Zofran Injection) 4 mg IVPUSH Q6H PRN PRN Reason: NAUSEA AND/OR VOMITING Polyethylene Glycol (Miralax (For Daily Use) -) 17 gm PO BID [facility] Last Admin: 11/01/19 10:06 Dose: 17 gm Documented by: Promethazine HCl (Phenergan Injection -) 12.5 mg IVPUSH Q6H PRN PRN Reason: NAUSEA-FOR RESCUE AFTER 15 MIN Sitagliptin Phosphate (Januvia -) 25 mg PO DAILY@0700 [facility] Last Admin: 11/01/19 06:03 Dose: 25 mg Documented by: Torsemide (Demadex -) 40 mg PO DAILY [facility] Last Admin: 11/01/19 10:05 Dose: 40 mg Documented by: - Objective Vital Signs: Vital Signs Temperature 99.0 F 11/01/19 05:42 Pulse Rate 78 11/01/19 05:42 Respiratory Rate 18 11/01/19 05:42 Blood Pressure 116/56 L 11/01/19 05:42 O2 Sat by Pulse Oximetry (%) 97 11/01/19 05:42 Constitutional: Yes: No Distress, Calm HENT: Yes: Atraumatic Neck: Yes: Supple Cardiovascular: Yes: Regular Rate and Rhythm Respiratory: Yes: Regular, Diminished Gastrointestinal: Yes: Soft. No: Tenderness Extremities: No: Cold, Cool, Cyanosis Edema: No Neurological: Yes: Alert, Oriented Labs: CBC, BMP 10/31/19 10:00 10/31/19 10:00 INR, PTT INR 1.03 (0.83-1.09) 09/25/19 00:09 Assessment/Plan 69 year old male with history of hypertension, non-insulin dependent DM, cardiomyopathy, and possible CKD who came from the [facility] [place] and presented to the ED with complaints of leg swelling and syncope and found to have renal failure and hyperkalemia. 1. ESRD requiring dialysis secondary to severe diabetic nephropathy (biopsy proven) 2. Hyperkalemia now resolved 3. Volume overload 4. Metabolic acidosis 5. Anemia 6. Hypertension 7. DM not on insulin 9. Cardiomyopathy s/p dialysis yesterday, no indicaton for treatment today. Clinicaly stable on 3x weeky dialysis. Continue Torsemide 40mg daily to aid in volume control. Cardiology following Doppler of the lower extremities negative for DVT s/p AVF placement per vascular, not yet mature enough to use. Still awaiting insurance authorization for outpatient dialysis placement. SOPHIE give with dialysis for anemia Renal diet Continue Losartan 50mg daily for hypertension. Discharge once outpatient dialysis is secured. Thank you Luiz Galdamez DO
--- NOTE | 2019-11-01 16:04 | PN ---
Physical Exam: SUBJECTIVE: Ptn seen today, appears tired from yesterday's dialysis session, in no acute distress, denies CP, SoB, will go for dialysis tomorrow. OBJECTIVE: Vital Signs Period Temp Pulse Resp BP Sys/Lopes Pulse Ox Last 24 Hr 98.2 F-99.0 F 62-78 18-18 116-146/53-67 95-97 GENERAL: The patient is awake, alert, and fully oriented, in no acute distress. HEAD: Normal with no signs of trauma. EYES: PERRL, extraocular movements intact NECK: Trachea midline, full range of motion, supple. LUNGS: Breath sounds equal, clear to auscultation bilaterally, no wheezes, no crackles, no accessory muscle use. HEART: Regular rate and rhythm, S1, S2 without murmur, rub or gallop. ABDOMEN: R sided CVA tenderness. Soft, nontender, nondistended, normoactive bowel sounds. EXTREMITIES: Left sided AVF notable for bruising, but decreasing. 2+ pulses, warm, well-perfused, no edema. NEUROLOGICAL: Normal speech, gait not observed. PSYCH: Normal mood, normal affect. SKIN: Warm, dry, normal turgor, no rashes or lesions noted Laboratory Results - last 24 hr 10/31/19 10/31/19 11/01/19 16:20 20:54 05:56 POC Glucometer 202 77 128 11/01/19 11:02 POC Glucometer 168 Active Medications Generic Name Dose Route Start Last Admin Trade Name Vinhq PRN Reason Stop Dose Admin Amlodipine Besylate 10 mg 10/14/19 10:00 11/01/19 10:04 Norvasc - PO 10 mg DAILY MAT Administration Aspirin 81 mg 10/14/19 10:11/01/19 10:05 Ecotrin - PO 81 mg DAILY MAT Administration Atorvastatin Calcium 10 mg 10/13/19 22:00 10/31/19 21:06 Lipitor - PO 10 mg HS MAT Administration Calcitriol 0.25 mcg 10/24/19 11:30 11/01/19 10:04 Rocaltrol - PO 0.25 mcg DAILY MAT Administration Calcium Acetate 667 mg 10/14/19 08:00 11/01/19 11:43 Phoslo - PO 667 mg TIDCM MAT Administration Carvedilol 12.5 mg 10/13/19 22:00 11/01/19 10:05 Coreg - PO 12.5 mg BID MAT Administration Docusate Sodium 100 mg 10/13/19 22:00 11/01/19 14:11 Colace - PO 100 mg TID MAT Administration Epoetin Efrem 20,000 unit 11/02/19 08:00 Procrit - IVPUSH 11/02/19 08:01 ONCE ONE Fentanyl 50 mcg 10/13/19 18:10 10/13/19 18:30 Sublimaze Injection - IVPUSH 50 mcg [id number] PRN Administration PAIN-PACU ORDER X 4 DOSES ONLY Hydralazine HCl 25 mg/ 35 mg 10/30/19 22:00 11/01/19 10:04 Hydralazine HCl 10 mg PO 35 mg BID MAT Administration Sodium Chloride 250 mls @ 3,000 mls/hr 11/01/19 12:02 Normal Saline - IV 11/02/19 12:02 PRN PRN Hypotension during Dialysis Iron Sucrose 100 mg/ Sodium 100 mls @ 200 mls/hr 11/02/19 08:00 Chloride IVPB 11/02/19 08:29 ONCE ONE Insulin Aspart 1 vial 10/13/19 22:00 11/01/19 11:43 Novolog Vial Sliding Scale - SQ 2 units ACHS MAT Administration Protocol Losartan Potassium 50 mg 10/20/19 10:45 11/01/19 10:05 Cozaar - PO 50 mg DAILY MAT Administration Ondansetron HCl 4 mg 10/13/19 18:10 Zofran Injection IVPUSH Q6H PRN NAUSEA AND/OR VOMITING Polyethylene Glycol 17 gm 10/13/19 22:00 11/01/19 10:06 Miralax (For Daily Use) - PO 17 gm BID MAT Administration Promethazine HCl 12.5 mg 10/13/19 18:10 Phenergan Injection - IVPUSH Q6H PRN NAUSEA-FOR RESCUE AFTER 15 MIN Sitagliptin Phosphate 25 mg 10/14/19 07:00 11/01/19 06:03 Januvia - PO 25 mg DAILY@0700 MAT Administration Torsemide 40 mg 10/29/19 10:00 11/01/19 10:05 Demadex - PO 40 mg DAILY MAT Administration ASSESSMENT/PLAN: 69 yo M citizen of , currently visiting his nephew and [place] the [place], with PMHx of hypertension, non-insulin dependent Diabetes Mellitus, Cardiomyopathy w/ preserved EF, and CKD, presented to the ED with SoB, syncope, LE edema and was noted to have severe diabetic nephropathy and hyperkalemia requiring HD. Permacath placement was performed, and dialysis achieved, subsequently, a left AVF was placed by the Vascular Team. ESRD secondary to severe untreated diabetic nephropathy -AVF Placed on 10/12 --> waiting to mature -Permacath remains in place -Dialysis MWF -Pre-Dialysis Labs per Nephro New Onset Shortness of Breath: RESOLVED -CXR: Since 09/30/2019 there may be some new atelectatic changes at the right base. Linear scarring or atelectasis in the L mid lung field. -LE Duplex: No evidence of DVT -EKG: NORMAL SINUS RHYTHM ABNORMAL QRS-T ANGLE, CONSIDER PRIMARY T WAVE ABNORMALITY -Physical exam shows CTABL Chronic Anemia likely 2/2 CKD -Monitor Hgb 7.6 Today (10/19) --> 9.2 (10/24) --> 8.7 (10/26) --> 8.0 (10/30) -EPO & Iron Sucrose per Nephrology on Dialysis days Acute on Likely Chronic Diastolic CHF (Poor Medical Treatment/Records, as ptn was previously treated in [place]) -ECHO: EF: 60-65% -LA mildly dilated Hx of HTN -BP remains elevated. Consider uptitrating hydralazine -Continue Amlodine -Continue Coreg -Continue Hydralazine: Changed to 35 TID from 50BID for better control. -Continue Demedex -Continue ASA DM -Previously on Metformin, will DC on discharge 2/2 CKD and risk of LA -Januvia 25mg qdaily -Atorvastatin 2/2 DM and Cardiac Risk Factor Equivalent -ISS w/ BGM Hypocalcemia 2/2 ESRD: RESOLVED -Continue Phoslo Hypokalemia: RESOLVED -Monitor K+ -Replete as needed Hyperphosphatemia -Likely 2/2 CKD -On Dialysis Social Work -Social Work Consulted: Working with medicare to obtain outpatient dialysis placement. Likely end of October. -Monitor immigration status and DC planning -Cleared for DC by Vascular per their note. FEN Fluids: No standing fluids, limit excessive fluid intake Electrolytes: Follow as needed Nutrition: Renal Diet Dispo: Continue med/surg management. FU social work w/ goal of outpatient hem odialysis Visit type - Emergency Visit Emergency Visit: No - New Patient This patient is new to me today: No - Critical Care Critical Care patient: No - Discharge Referral Referred to [facility] Med P.C[facility] No - Medication Review Med list reviewed for High Risk Meds patients 65 and older: Yes ATTENDING PHYSICIAN STATEMENT I saw and evaluated the patient. I reviewed the resident's note and discussed the case with the resident. I agree with the resident's findings and plan as documented. SUBJECTIVE: OBJECTIVE: ASSESSMENT AND PLAN:
--- NOTE | 2019-11-01 20:06 | PN ---
Teaching Attending Note Name of Resident: Yan Celis ATTENDING PHYSICIAN STATEMENT I saw and evaluated the patient. I reviewed the resident's note and discussed the case with the resident. I agree with the resident's findings and plan as documented. SUBJECTIVE: no fever or chills, no pain. no JACKSON . OBJECTIVE: NAD. CV: RRR, 3/6 SM at [facility]LSb and [place] [facility] Lungs: CTAB Ext: No edema or erythema on upper or lower extremities. L wrist surgical wound , well iwlma. no erythema or edema. bruit heard Abd: soft, NT, Nd , NL BS ASSESSMENT AND PLAN: 69 y/o man with h/o hypertension, non-insulin dependent DM, cardiomyopathy, and possible CKD , who presneted with LE edema and was found to have severe diabetic nephropathy and hyperkalemia requiring HD. 1- ESRD 2/2 severe diabetic nephropathy 2- Hyperkalemia ,. resolved 3- Volume overload from renal disease: improved 4- HTN 5- DM 6- Anemia 7- S/p diastolic CHF. now resolved. plan : - cont HD pending out pt HD center - needs hep B vaccine as out pt - Monitor L AV fistula - cont norvasc , ccb , coreg , and HZN . Bp improved - cont SSI - SOPHIE with HD - cont [facility] and statin - fistula as in patient Heparin SQ
[2019-11-01] MEDS: HEPARIN NA (PORCINE) 5,000 UNITS/ML 1ML VIAL SQ SCH (21:10)
[2019-11-01] MEDS: ATORVASTATIN CA 10 MG TABLET (FP) PO SCH (21:10)
--- NOTE | 2019-11-02 02:24 | PN ---
Progress Note, Physician Chief Complaint: Pt A&Ox3; asymptomatic History of Present Illness: Mr. Vuong is a 69 year old male (. [facility]) with a significant past medical history of HTN, DM, CHF, and renal dysfunction, who presents to the ED with 4 months of bilateral LE edema. As per patient, he presented to the ED from the [facility] secondary to receiving inadequate care. Patient also endorses one month of intermittent shortness of breath, occasional mild sharp central chest pain on exertion lasting a few seconds, bilateral kidney pain and 4 episodes of syncope last week, with head injury. - Current Medication List Current Medications: Active Medications Amlodipine Besylate (Norvasc -) 10 mg PO DAILY [facility] Last Admin: 11/01/19 10:04 Dose: 10 mg Documented by: Aspirin (Ecotrin -) 81 mg PO DAILY [facility] Last Admin: 11/01/19 10:05 Dose: 81 mg Documented by: Atorvastatin Calcium (Lipitor -) 10 mg PO HS [facility] Last Admin: 11/01/19 21:10 Dose: 10 mg Documented by: Calcitriol (Rocaltrol -) 0.25 mcg PO DAILY [facility] Last Admin: 11/01/19 10:04 Dose: 0.25 mcg Documented by: Calcium Acetate (Phoslo -) 667 mg PO TIDCM [facility] Last Admin: 11/01/19 17:23 Dose: 667 mg Documented by: Carvedilol (Coreg -) 12.5 mg PO BID [facility] Last Admin: 11/01/19 21:13 Dose: 12.5 mg Documented by: Docusate Sodium (Colace -) 100 mg PO TID [facility] Last Admin: 11/01/19 21:10 Dose: Not Given Documented by: Epoetin Efrem (Procrit -) 20,000 unit IVPUSH ONCE ONE Stop: 11/02/19 08:01 Fentanyl (Sublimaze Injection -) 50 mcg IVPUSH [id number] PRN PRN Reason: PAIN-PACU ORDER X 4 DOSES ONLY Last Admin: 10/13/19 18:30 Dose: 50 mcg Documented by: Heparin Sodium (Porcine) (Heparin -) 5,000 unit SQ TID [facility] Last Admin: 11/01/19 21:10 Dose: 5,000 unit Documented by: Hydralazine HCl 25 mg/ (Hydralazine HCl 10 mg) 35 mg PO BID [facility] Last Admin: 11/01/19 21:11 Dose: 35 mg Documented by: Sodium Chloride (Normal Saline -) 250 mls @ 3,000 mls/hr IV PRN PRN PRN Reason: Hypotension during Dialysis Stop: 11/02/19 12:02 Iron Sucrose 100 mg/ Sodium (Chloride) 100 mls @ 200 mls/hr IVPB ONCE ONE Stop: 11/02/19 08:29 Insulin Aspart (Novolog Vial Sliding Scale -) 1 vial SQ ACHS [facility]; Protocol Last Admin: 11/01/19 21:10 Dose: 2 units Documented by: Losartan Potassium (Cozaar -) 50 mg PO DAILY [facility] Last Admin: 11/01/19 10:05 Dose: 50 mg Documented by: Ondansetron HCl (Zofran Injection) 4 mg IVPUSH Q6H PRN PRN Reason: NAUSEA AND/OR VOMITING Polyethylene Glycol (Miralax (For Daily Use) -) 17 gm PO BID [facility] Last Admin: 11/01/19 21:13 Dose: Not Given Documented by: Promethazine HCl (Phenergan Injection -) 12.5 mg IVPUSH Q6H PRN PRN Reason: NAUSEA-FOR RESCUE AFTER 15 MIN Sitagliptin Phosphate (Januvia -) 25 mg PO DAILY@0700 [facility] Last Admin: 11/01/19 06:03 Dose: 25 mg Documented by: Torsemide (Demadex -) 40 mg PO DAILY [facility] Last Admin: 11/01/19 10:05 Dose: 40 mg Documented by: - Objective Vital Signs: Vital Signs Temperature 98.2 F 11/01/19 18:47 Pulse Rate 75 11/01/19 21:09 Respiratory Rate 18 11/01/19 21:00 Blood Pressure 143/53 L 11/01/19 21:09 O2 Sat by Pulse Oximetry (%) 98 11/01/19 21:09 Constitutional: Yes: No Distress Eyes: Yes: WNL HENT: Yes: WNL Cardiovascular: Yes: S1, S2, S4 Respiratory: Yes: WNL Gastrointestinal: Yes: Soft ...Rectal Exam: Yes: Deferred Genitourinary: Yes: Anuria Musculoskeletal: Yes: Muscle Weakness Extremities: Yes: Other (left forearm AV graft healing; no discharge) Edema: No Peripheral Pulses WNL: Yes Integumentary: Yes: Incision Wound/Incision: Yes: Dressing Removed Neurological: Yes: Alert, Oriented Psychiatric: Yes: Alert, Oriented, Other (anxiety) Labs: CBC, BMP 10/31/19 10:00 10/31/19 10:00 INR, PTT INR 1.03 (0.83-1.09) 09/25/19 00:09 - ....Imaging Chest X-ray: Image Reviewed EKG: Image Reviewed Assessment/Plan dyspnea: resolved Acute/chronic diastolic CHF ESRD; on hemodialysis HTN hypokalemia (hx severe hyperkalemia) s/p AV fistula Syncope anemia: on SOPHIE s/p rhabdomyolysis elevated TNI; stress MIBI shows small area of mildly intense inferior ischemia EKG: NSR; ? old septal infarct ECHO: normal LVEF; abnormal diastolic compliance; mild-moderate LVH; small pericardial effusion Rec: CXR: no acute pathology EKG: NSR: no longer with STT changes trooponin level: 0.03 Repleted K; f/u Mg and keep 2.0-2.4. 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 s/p renal biopsy On amlodipine 10 mg daily. Hydralazine 35 mg bid; Coreg 12.5 bid; losartan 50 mg daily, and may increase doses of hydralazine,carvedilol, and losartan as needed for better BP control. Aggressive BP, lipid, glucose control. Cholesterol: LDL 68; HDL 45; continue atorvastatin 10 mg/day.
[2019-11-02] MEDS: DOCUSATE SODIUM 100 MG CAPSULE (FP) PO SCH ×3 (05:47→22:01)
[2019-11-02] MEDS: HEPARIN NA (PORCINE) 5,000 UNITS/ML 1ML VIAL SQ SCH ×3 (05:47→22:01)
[2019-11-02] MEDS: INSULIN SLIDING SCALE (NOVOLOG) 1 VIAL SQ SCH ×4 (06:08→22:08)
[2019-11-02] MEDS: CALCIUM ACETATE 667 MG CAPSULE (FP) PO SCH ×3 (09:00→17:23)
[2019-11-02] MEDS ORDERED: EPOETIN ALFA 20,000 UNIT/1 ML VIAL IVPUSH ONE (09:30)
[2019-11-02] MEDS ORDERED: IRON SUCROSE INJECTION 100 MG in SODIUM CHLORIDE 95 ML IVPB ONE (10:00)
[2019-11-02 10:03] LABS: HEMATOCRIT 24.5 % (35.4-49); HEMOGLOBIN 7.8 GM/dL (11.7-16.9); MCH 29.2 pg (25.7-33.7); MEAN CELL VOLUME 91.2 fl (80-96); MEAN PLT VOLUME 9.1 fl (7.5-11.1); PLATELET COUNT 137 K/MM3 (134-434); RBC 2.68 M/mm3 (4.00-5.60); RDW 16.3 % (11.9-15.9); WHITE BLOOD COUNT 5.8 K/mm3 (4.0-10.0)
[2019-11-02 10:47] LABS: POTASSIUM 4.1 mmol/L (3.5-5.1)
[2019-11-02 11:03] LABS: BLOOD UREA NITROGEN 61.9 mg/dL (7-18); CALCIUM 8.3 mg/dL (8.5-10.1); CREATININE 7.1 mg/dL (0.55-1.3); PHOSPHOROUS 4.9 mg/dL (2.5-4.9)
[2019-11-02] MEDS ORDERED: hydrALAZINE HCL 25 MG TABLET (FP) ONE ×2 (12:19→21:51)
[2019-11-02] MEDS ORDERED: hydrALAZINE HCL 10 MG TABLET ONE ×2 (12:19→21:51)
[2019-11-02] MEDS: CALCITRIOL 0.25 MCG CAPSULE (FP) PO SCH (12:29)
[2019-11-02] MEDS: amLODIPine BESYLATE 5 MG TABLET (FP) PO SCH (12:30)
[2019-11-02] MEDS: TORSEMIDE 20 MG TABLET (FP) PO SCH (12:30)
[2019-11-02] MEDS: ASPIRIN COATED 81 MG TABLET.EC PO SCH (12:30)
[2019-11-02] MEDS: CARVEDILOL 12.5 MG TABLET (FP) PO SCH ×2 (12:30→22:01)
[2019-11-02] MEDS ORDERED: PT OWN MED DRAWER 7, Y5N ONE (12:32)
[2019-11-02] MEDS: LOSARTAN POTASSIUM 50 MG TABLET (FP) PO SCH (12:38)
[2019-11-02] MEDS: POLYETHYLENE GLYCOL 3350 119 GM BTL PO SCH ×2 (12:42→22:08)
[2019-11-02] MEDS: hydrALAZINE HCL 25 MG, hydrALAZINE HCL 10 MG PO SCH ×2 (12:43→22:01)
--- NOTE | 2019-11-02 13:46 | PN ---
Progress Note, Physician History of Present Illness: Mr. Vuong is a 69 year old male ([facility]) with a significant past medical history of HTN, DM, CHF, and renal dysfunction, who presents to the ED with 4 months of bilateral LE edema. As per patient, he presented to the ED from the [facility] secondary to receiving inadequate care. Patient also endorses one month of intermittent shortness of breath, chest pain on exertion, bilateral kidney pain and 4 episodes of syncope last week, with head injury. Denies fever, chills, headache, nausea, vomiting, or urinary changes. - Current Medication List Current Medications: Active Medications Amlodipine Besylate (Norvasc -) 10 mg PO DAILY [facility] Last Admin: 11/02/19 12:30 Dose: 10 mg Documented by: Aspirin (Ecotrin -) 81 mg PO DAILY [facility] Last Admin: 11/02/19 12:30 Dose: 81 mg Documented by: Atorvastatin Calcium (Lipitor -) 10 mg PO HS [facility] Last Admin: 11/01/19 21:10 Dose: 10 mg Documented by: Calcitriol (Rocaltrol -) 0.25 mcg PO DAILY [facility] Last Admin: 11/02/19 12:29 Dose: 0.25 mcg Documented by: Calcium Acetate (Phoslo -) 667 mg PO TIDCM [facility] Last Admin: 11/02/19 12:30 Dose: 667 mg Documented by: Carvedilol (Coreg -) 12.5 mg PO BID [facility] Last Admin: 11/02/19 12:30 Dose: 12.5 mg Documented by: Docusate Sodium (Colace -) 100 mg PO TID [facility] Last Admin: 11/02/19 05:47 Dose: Not Given Documented by: Heparin Sodium (Porcine) (Heparin -) 5,000 unit SQ TID [facility] Last Admin: 11/02/19 05:47 Dose: 5,000 unit Documented by: Hydralazine HCl 25 mg/ (Hydralazine HCl 10 mg) 35 mg PO BID [facility] Last Admin: 11/02/19 12:43 Dose: 35 mg Documented by: Insulin Aspart (Novolog Vial Sliding Scale -) [address] [facility]; Protocol Last Admin: 11/02/19 11:00 Dose: Not Given Documented by: Losartan Potassium (Cozaar -) 50 mg PO DAILY [facility] Last Admin: 11/02/19 12:38 Dose: 50 mg Documented by: Ondansetron HCl (Zofran Injection) 4 mg IVPUSH Q6H PRN PRN Reason: NAUSEA AND/OR VOMITING Polyethylene Glycol (Miralax (For Daily Use) -) 17 gm PO BID [facility] Last Admin: 11/02/19 12:42 Dose: 17 gm Documented by: Promethazine HCl (Phenergan Injection -) 12.5 mg IVPUSH Q6H PRN PRN Reason: NAUSEA-FOR RESCUE AFTER 15 MIN Sitagliptin Phosphate (Januvia -) 25 mg PO DAILY@0700 [facility] Last Admin: 11/02/19 06:08 Dose: 25 mg Documented by: Torsemide (Demadex -) 40 mg PO DAILY [facility] Last Admin: 11/02/19 12:30 Dose: 40 mg Documented by: - Objective Vital Signs: Vital Signs Temperature 98 F 11/02/19 08:30 Pulse Rate 73 11/02/19 11:59 Respiratory Rate 18 11/02/19 11:59 Blood Pressure 155/66 11/02/19 11:59 O2 Sat by Pulse Oximetry (%) 95 11/02/19 09:00 Eyes: Yes: WNL, Conjunctiva Clear, EOM Intact HENT: Yes: WNL, Atraumatic, Normocephalic Neck: Yes: WNL, Supple, Trachea Midline Cardiovascular: Yes: WNL, Regular Rate and Rhythm Respiratory: Yes: WNL, Regular, CTA Bilaterally Gastrointestinal: Yes: WNL, Normal Bowel Sounds Genitourinary: Yes: WNL Musculoskeletal: Yes: WNL Extremities: Yes: WNL Edema: No Integumentary: Yes: WNL Neurological: Yes: WNL, Alert, Oriented ...Motor Strength: WNL Psychiatric: Yes: WNL Labs: CBC, BMP 11/02/19 08:45 11/02/19 08:45 INR, PTT INR 1.03 (0.83-1.09) 09/25/19 00:09 Problem List - Problems (1) Diabetes Code(s): E11.9 - TYPE 2 DIABETES MELLITUS WITHOUT COMPLICATIONS (2) Hyperkalemia Code(s): E87.5 - HYPERKALEMIA (3) Hypertension Code(s): I10 - ESSENTIAL (PRIMARY) HYPERTENSION (4) Kidney failure Code(s): N19 - UNSPECIFIED KIDNEY FAILURE Qualifiers: Renal failure chronicity: acute on chronic Assessment/Plan dyspnea: resolved Acute/chronic diastolic CHF ESRD; on hemodialysis HTN hypokalemia (hx severe hyperkalemia) s/p AV fistula Syncope anemia: on SOPHIE s/p rhabdomyolysis elevated TNI; stress MIBI shows small area of mildly intense inferior ischemia EKG: NSR; ? old septal infarct ECHO: normal LVEF; abnormal diastolic compliance; mild-moderate LVH; small pericardial effusion Rec: CXR: no acute pathology EKG: NSR: no longer with STT changes trooponin level: 0.03 Repleted K; f/u Mg and keep 2.0-2.4. Continue hemodialysis per stand grinder. s/p renal biopsy On amlodipine 10 mg daily. Hydralazine 35 mg bid; Coreg 12.5 bid; losartan 50 mg daily, and may increase doses of hydralazine,carvedilol, and losartan as needed for better BP control. Aggressive BP, lipid, glucose control. Cholesterol: LDL 68; HDL 45; continue atorvastatin 10 mg/day.
--- NOTE | 2019-11-02 14:05 | PN ---
Progress Note, Physician Chief Complaint: Renal failure History of Present Illness: Seen and examined at the bedside seen during dialysis treatment BP stable, and catheter worked well. tolerated 2L UF pt offers no acute com - Current Medication List Current Medications: Active Medications Amlodipine Besylate (Norvasc -) 10 mg PO DAILY [facility] Last Admin: 11/02/19 12:30 Dose: 10 mg Documented by: Aspirin (Ecotrin -) 81 mg PO DAILY [facility] Last Admin: 11/02/19 12:30 Dose: 81 mg Documented by: Atorvastatin Calcium (Lipitor -) 10 mg PO HS [facility] Last Admin: 11/01/19 21:10 Dose: 10 mg Documented by: Calcitriol (Rocaltrol -) 0.25 mcg PO DAILY [facility] Last Admin: 11/02/19 12:29 Dose: 0.25 mcg Documented by: Calcium Acetate (Phoslo -) 667 mg PO TIDCM [facility] Last Admin: 11/02/19 12:30 Dose: 667 mg Documented by: Carvedilol (Coreg -) 12.5 mg PO BID [facility] Last Admin: 11/02/19 12:30 Dose: 12.5 mg Documented by: Docusate Sodium (Colace -) 100 mg PO TID [facility] Last Admin: 11/02/19 05:47 Dose: Not Given Documented by: Heparin Sodium (Porcine) (Heparin -) 5,000 unit SQ TID [facility] Last Admin: 11/02/19 05:47 Dose: 5,000 unit Documented by: Hydralazine HCl 25 mg/ (Hydralazine HCl 10 mg) 35 mg PO BID [facility] Last Admin: 11/02/19 12:43 Dose: 35 mg Documented by: Insulin Aspart (Novolog Vial Sliding Scale -) 1 vial SQ [facility]; Protocol Last Admin: 11/02/19 11:00 Dose: Not Given Documented by: Losartan Potassium (Cozaar -) 50 mg PO DAILY [facility] Last Admin: 11/02/19 12:38 Dose: 50 mg Documented by: Ondansetron HCl (Zofran Injection) 4 mg IVPUSH Q6H PRN PRN Reason: NAUSEA AND/OR VOMITING Polyethylene Glycol (Miralax (For Daily Use) -) 17 gm PO BID [facility] Last Admin: 11/02/19 12:42 Dose: 17 gm Documented by: Promethazine HCl (Phenergan Injection -) 12.5 mg IVPUSH Q6H PRN PRN Reason: NAUSEA-FOR RESCUE AFTER 15 MIN Sitagliptin Phosphate (Januvia -) 25 mg PO DAILY@0700 [facility] Last Admin: 11/02/19 06:08 Dose: 25 mg Documented by: Torsemide (Demadex -) 40 mg PO DAILY [facility] Last Admin: 11/02/19 12:30 Dose: 40 mg Documented by: - Objective Vital Signs: Vital Signs Temperature 98 F 11/02/19 08:30 Pulse Rate 73 11/02/19 11:59 Respiratory Rate 18 11/02/19 11:59 Blood Pressure 155/66 11/02/19 11:59 O2 Sat by Pulse Oximetry (%) 95 11/02/19 09:00 Constitutional: Yes: No Distress, Calm HENT: Yes: Atraumatic Neck: Yes: Supple Cardiovascular: Yes: Regular Rate and Rhythm Respiratory: Yes: Regular Gastrointestinal: Yes: Soft Edema: No Neurological: Yes: Alert, Oriented Labs: CBC, BMP 11/02/19 08:45 11/02/19 08:45 INR, PTT INR 1.03 (0.83-1.09) 09/25/19 00:09 Assessment/Plan 69 year old male with history of hypertension, non-insulin dependent DM, cardiomyopathy, and possible CKD who came from the [place] and presented to the ED with complaints of leg swelling and syncope and found to have renal failure and hyperkalemia. 1. ESRD requiring dialysis secondary to severe diabetic nephropathy (biopsy proven) 2. Hyperkalemia now resolved 3. Volume overload 4. Metabolic acidosis 5. Anemia 6. Hypertension 7. DM not on insulin 9. Cardiomyopathy Tolerated dialysis well this morning. Clinicaly stable on 3x weeky dialysis. Continue Torsemide 40mg daily to aid in volume control. s/p AVF placement per vascular, not yet mature enough to use. Medicaid application was approved, pending repeat COVID screen to obtain outpatient dialysis placement. SOPHIE give with dialysis for anemia Renal diet Continue Losartan 50mg daily for hypertension. Discharge once outpatient dialysis is secured. Thank you Luiz Galdamez DO
--- NOTE | 2019-11-02 15:31 | PN ---
Physical Exam: SUBJECTIVE: Patient seen and examined, no acute distress. Will go for dialysis today. Endorses no complaints. OBJECTIVE: Vital Signs Period Temp Pulse Resp BP Sys/Lopes Pulse Ox Last 24 Hr 98 F-99.2 F 64-75 18-20 134-155/53-81 95-99 GENERAL: The patient is awake, alert, and fully oriented, in no acute distress. HEAD: Normal with no signs of trauma. EYES: PERRL, extraocular movements intact NECK: Trachea midline, full range of motion, supple. LUNGS: Breath sounds equal, clear to auscultation bilaterally, no wheezes, no crackles, no accessory muscle use. HEART: Regular rate and rhythm, S1, S2 without murmur, rub or gallop. ABDOMEN: R sided CVA tenderness. Soft, nontender, nondistended, normoactive bowel sounds. EXTREMITIES: Left sided AVF notable for bruising, but decreasing. 2+ pulses, warm, well-perfused, no edema. NEUROLOGICAL: Normal speech, gait not observed. PSYCH: Normal mood, normal affect. SKIN: Warm, dry, normal turgor, no rashes or lesions noted Laboratory Results - last 24 hr CBC, BMP 11/02/19 08:45 11/02/19 08:45 Active Medications Generic Name Dose Route Start Last Admin Trade Name Vinhq PRN Reason Stop Dose Admin Amlodipine Besylate 10 mg 10/14/19 10:00 11/02/19 12:30 Norvasc - PO 10 mg DAILY [facility] Administration Aspirin 81 mg 10/14/19 10:00 11/02/19 12:30 Ecotrin - PO 81 mg DAILY [facility] Administration Atorvastatin Calcium 10 mg 10/13/19 22:00 11/01/19 21:10 Lipitor - PO 10 mg HS [facility] Administration Calcitriol 0.25 mcg 10/24/19 11:30 11/02/19 12:29 Rocaltrol - PO 0.25 mcg DAILY [facility] Administration Calcium Acetate 667 mg 10/14/19 08:00 11/02/19 12:30 Phoslo - PO 667 mg TIDCM MAT Administration Carvedilol 12.5 mg 10/13/19 22:00 11/02/19 12:30 Coreg - PO 12.5 mg BID MAT Administration Docusate Sodium 100 mg 10/13/19 22:00 11/02/19 15:07 Colace - PO 100 mg TID MAT Administration Heparin Sodium (Porcine) 5,000 unit 11/01/19 22:00 11/02/19 15:07 Heparin - SQ 5,000 unit TID [facility] Administration Hydralazine HCl 25 mg/ 35 mg 10/30/19 22:00 11/02/19 12:43 Hydralazine HCl 10 mg PO 35 mg BID [facility] Administration Insulin Aspart 1 vial 10/13/19 22:00 11/02/19 11:00 Novolog Vial Sliding Scale - SQ Not Given ACHS MAT Protocol Losartan Potassium 50 mg 10/20/19 10:45 11/02/19 12:38 Cozaar - PO 50 mg DAILY [facility] Administration Ondansetron HCl 4 mg 10/13/19 18:10 Zofran Injection IVPUSH Q6H PRN NAUSEA AND/OR VOMITING Polyethylene Glycol 17 gm 10/13/19 22:00 11/02/19 12:42 Miralax (For Daily Use) - PO 17 gm BID [facility] Administration Promethazine HCl 12.5 mg 10/13/19 18:10 Phenergan Injection - IVPUSH Q6H PRN NAUSEA-FOR RESCUE AFTER 15 MIN Sitagliptin Phosphate 25 mg 10/14/19 07:00 11/02/19 06:08 Januvia - PO 25 mg DAILY@0700 [facility] Administration Torsemide 40 mg 10/29/19 10:00 11/02/19 12:30 Demadex - PO 40 mg DAILY [facility] Administration ASSESSMENT/PLAN: 69 yo M citizen of , currently visiting his nephew and undocumented [place] the [place], with PMHx of hypertension, non-insulin dependent Diabetes Mellitus, Cardiomyopathy w/ preserved EF, and CKD, presented to the ED with SoB, syncope, LE edema and was noted to have severe diabetic nephropathy and hyperkalemia requiring HD. Permacath placement was performed, and dialysis achieved, subsequently, a left AVF was placed by the Vascular Team. ESRD secondary to severe untreated diabetic nephropathy -AVF Placed on 10/12 --> waiting to mature -Permacath remains in place -Dialysis MWF -Pre-Dialysis Labs per Nephro New Onset Shortness of Breath: RESOLVED -CXR: Since 09/30/2019 there may be some new atelectatic changes at the right base. Linear scarring or atelectasis in the L mid lung field. -LE Duplex: No evidence of DVT -EKG: NORMAL SINUS RHYTHM ABNORMAL QRS-T ANGLE, CONSIDER PRIMARY T WAVE ABNORMALITY -Physical exam shows CTABL Chronic Anemia likely 2/2 CKD -Monitor Hgb 7.6 Today (10/19) --> 9.2 (10/24) --> 8.7 (10/26) --> 8.0 (10/30) -EPO & Iron Sucrose per Nephrology on Dialysis days Acute on Likely Chronic Diastolic CHF (Poor Medical Treatment/Records, as ptn was previously treated in [place]) -ECHO: EF: 60-65% -LA mildly dilated Hx of HTN -BP remains elevated. Consider uptitrating hydralazine -Continue Amlodine -Continue Coreg -Continue Hydralazine: Changed to 35 TID from 50BID for better control. -Continue Demedex -Continue ASA DM -Previously on Metformin, will DC on discharge 2/2 CKD and risk of LA -Januvia 25mg qdaily -Atorvastatin 2/2 DM and Cardiac Risk Factor Equivalent -ISS w/ BGM Hypocalcemia 2/2 ESRD: RESOLVED -Continue Phoslo Hypokalemia: RESOLVED -Monitor K+ -Replete as needed Hyperphosphatemia -Likely 2/2 CKD -On Dialysis Social Work -Social Work Consulted: Medicaid application approved. Repeat Covid screen ordered for outpatient dialysis. -Cleared for DC by Vascular per their note. FEN Fluids: No standing fluids, limit excessive fluid intake Electrolytes: Follow as needed Nutrition: Renal Diet Dispo: Continue med/surg management. FU social work w/ goal of outpatient hemodialysis Visit type - Emergency Visit Emergency Visit: No - New Patient This patient is new to me today: No - Critical Care Critical Care patient: No - Discharge Referral Referred to [facility] No - Medication Review Med list reviewed for High Risk Meds patients 65 and older: Yes ATTENDING PHYSICIAN STATEMENT I saw and evaluated the patient. I reviewed the resident's note and discussed the case with the resident. I agree with the resident's findings and plan as documented. SUBJECTIVE: OBJECTIVE: ASSESSMENT AND PLAN:
[2019-11-02] MEDS ORDERED: INSULIN (NOVOLOG) ASPART 100 UNITS/ML 10ML VIAL ONE (16:40)
--- NOTE | 2019-11-02 18:41 | PN ---
Teaching Attending Note Name of Resident: Maral Bledsoe ATTENDING PHYSICIAN STATEMENT I saw and evaluated the patient. I reviewed the resident's note and discussed the case with the resident. I agree with the resident's findings and plan as documented. SUBJECTIVE: no pain, no SOB . seen during HD OBJECTIVE: NAD. CV: RRR, 3/6 SM at LLSb and [place] Lungs: CTAB Ext: No edema or erythema on upper or lower extremities. L wrist bandage ASSESSMENT AND PLAN: 69 y/o man with h/o hypertension, non-insulin dependent DM, cardiomyopathy, and possible CKD , who presneted with LE edema and was found to have severe diabetic nephropathy and hyperkalemia requiring HD. 1- ESRD 2/2 severe diabetic nephropathy 2- Hyperkalemia ,. resolved 3- Volume overload from renal disease: improved 4- HTN 5- DM 6- Anemia 7- S/p diastolic CHF. now resolved. plan : - cont HD - needs hep B vaccine as out pt - Monitor L AV fistula - cont norvasc , ccb , coreg , and HZN . - cont SSI - SOPHIE with HD - cont Asa and statin - repeat covid for placement Heparin SQ
[2019-11-02] MEDS: ATORVASTATIN CA 10 MG TABLET (FP) PO SCH (22:01)
[2019-11-03] MEDS: DOCUSATE SODIUM 100 MG CAPSULE (FP) PO SCH ×2 (06:04→14:00)
[2019-11-03] MEDS: HEPARIN NA (PORCINE) 5,000 UNITS/ML 1ML VIAL SQ SCH ×2 (06:04→14:00)
[2019-11-03] MEDS: INSULIN SLIDING SCALE (NOVOLOG) 1 VIAL SQ SCH ×3 (06:05→17:32)
[2019-11-03] MEDS ORDERED: hydrALAZINE HCL 25 MG TABLET (FP) ONE (09:31)
[2019-11-03] MEDS ORDERED: hydrALAZINE HCL 10 MG TABLET ONE (09:31)
[2019-11-03] MEDS: CALCIUM ACETATE 667 MG CAPSULE (FP) PO SCH ×3 (09:38→17:34)
[2019-11-03] MEDS: CALCITRIOL 0.25 MCG CAPSULE (FP) PO SCH (09:38)
[2019-11-03] MEDS: TORSEMIDE 20 MG TABLET (FP) PO SCH (09:38)
[2019-11-03] MEDS: amLODIPine BESYLATE 5 MG TABLET (FP) PO SCH (09:38)
[2019-11-03] MEDS: ASPIRIN COATED 81 MG TABLET.EC PO SCH (09:38)
[2019-11-03] MEDS: LOSARTAN POTASSIUM 50 MG TABLET (FP) PO SCH (09:39)
[2019-11-03] MEDS: CARVEDILOL 12.5 MG TABLET (FP) PO SCH (09:39)
[2019-11-03] MEDS: hydrALAZINE HCL 25 MG, hydrALAZINE HCL 10 MG PO SCH (09:39)
[2019-11-03] MEDS: POLYETHYLENE GLYCOL 3350 119 GM BTL PO SCH (09:40)
--- NOTE | 2019-11-03 13:06 | PN ---
Progress Note, Physician Chief Complaint: Renal failure History of Present Illness: Seen and examined at the bedside awake and alert offers no acute complaints s/p dialysis yesterday Medicaid application was approved denies any sob, cp, fever, chills, N/V/D - Current Medication List Current Medications: Active Medications Amlodipine Besylate (Norvasc -) 10 mg PO DAILY [facility] Last Admin: 11/03/19 09:38 Dose: 10 mg Documented by: Aspirin (Ecotrin -) 81 mg PO DAILY [facility] Last Admin: 11/03/19 09:38 Dose: 81 mg Documented by: Atorvastatin Calcium (Lipitor -) 10 mg PO HS [facility] Last Admin: 11/02/19 22:01 Dose: 10 mg Documented by: Calcitriol (Rocaltrol -) 0.25 mcg PO DAILY [facility] Last Admin: 11/03/19 09:38 Dose: 0.25 mcg Documented by: Calcium Acetate (Phoslo -) 667 mg PO TIDCM [facility] Last Admin: 11/03/19 12:01 Dose: 667 mg Documented by: Carvedilol (Coreg -) 12.5 mg PO BID [facility] Last Admin: 11/03/19 09:39 Dose: 12.5 mg Documented by: Docusate Sodium (Colace -) 100 mg PO TID [facility] Last Admin: 11/03/19 06:04 Dose: 100 mg Documented by: Heparin Sodium (Porcine) (Heparin -) 5,000 unit SQ TID [facility] Last Admin: 11/03/19 06:04 Dose: 5,000 unit Documented by: Hydralazine HCl 25 mg/ (Hydralazine HCl 10 mg) 35 mg PO BID [facility] Last Admin: 11/03/19 09:39 Dose: 35 mg Documented by: Insulin Aspart (Novolog Vial Sliding Scale -) 1 vial SQ [facility]; Protocol Last Admin: 11/03/19 12:00 Dose: 2 units Documented by: Losartan Potassium (Cozaar -) 50 mg PO DAILY [facility] Last Admin: 11/03/19 09:39 Dose: 50 mg Documented by: Ondansetron HCl (Zofran Injection) 4 mg IVPUSH Q6H PRN PRN Reason: NAUSEA AND/OR VOMITING Polyethylene Glycol (Miralax (For Daily Use) -) 17 gm PO BID [facility] Last Admin: 11/03/19 09:40 Dose: 17 gm Documented by: Promethazine HCl (Phenergan Injection -) 12.5 mg IVPUSH Q6H PRN PRN Reason: NAUSEA-FOR RESCUE AFTER 15 MIN Sitagliptin Phosphate (Januvia -) 25 mg PO DAILY@0700 [facility] Last Admin: 11/03/19 06:04 Dose: 25 mg Documented by: Torsemide (Demadex -) 40 mg PO DAILY [facility] Last Admin: 11/03/19 09:38 Dose: 40 mg Documented by: - Objective Vital Signs: Vital Signs Temperature 99.0 F 11/03/19 10:00 Pulse Rate 70 11/03/19 10:00 Respiratory Rate 18 11/03/19 10:00 Blood Pressure 132/60 11/03/19 10:00 O2 Sat by Pulse Oximetry (%) 95 11/03/19 10:00 Constitutional: Yes: No Distress, Calm Neck: Yes: Supple Cardiovascular: Yes: Regular Rate and Rhythm Respiratory: Yes: Regular Gastrointestinal: Yes: Soft Edema: No Neurological: Yes: Alert, Oriented Labs: CBC, BMP 11/02/19 08:45 11/02/19 08:45 INR, PTT INR 1.03 (0.83-1.09) 09/25/19 00:09 Assessment/Plan 69 year old male with history of hypertension, non-insulin dependent DM, cardiomyopathy, and possible CKD who came from the [place] and p resented to the ED with complaints of leg swelling and syncope and found to have renal failure and hyperkalemia. 1. ESRD requiring dialysis secondary to severe diabetic nephropathy (biopsy proven) 2. Hyperkalemia now resolved 3. Volume overload 4. Metabolic acidosis 5. Anemia 6. Hypertension 7. DM not on insulin 9. Cardiomyopathy No acute need for dialysis today. Will start outpatient dialysis tomorrow at [facility] at 2:30 pm. Clinically stable on 3x weekly dialysis. Continue Torsemide 40mg daily to aid in volume control. s/p AVF placement per vascular, not yet mature enough to use. SOPHIE give with dialysis for anemia Renal diet Continue Losartan 50mg daily for hypertension. Discharge planning as per primary team ESRD discussed at length with the patient at the bedside. Thank you Luiz Galdamez DO
[2019-11-03 14:50] VITALS: BP 144/55; PULSE 66; TEMP 98.5
--- NOTE | 2019-11-03 17:32 | DS ---
Physical Exam: SUBJECTIVE: Patient seen and examined this morning, no acute distress. Spoken to about discharge OBJECTIVE: Vital Signs Period Temp Pulse Resp BP Sys/Lopes Pulse Ox Last 24 Hr 98.5 F-99.4 F 66-70 17-18 132-144/55-61 95-97 PHYSICAL EXAM GENERAL: The patient is awake, alert, and fully oriented, in no acute distress. HEAD: Normal with no signs of trauma. EYES: PERRL, extraocular movements intact, sclera anicteric, conjunctiva clear. ENT: Ears normal, nares patent, oropharynx clear without exudates, moist mucous membranes. NECK: Trachea midline, full range of motion, supple. LUNGS: Breath sounds equal, clear to auscultation bilaterally, no wheezes, no crackles, no accessory muscle use. HEART: Regular rate and rhythm, S1, S2 without murmur, rub or gallop. ABDOMEN: Soft, nontender, nondistended, normoactive bowel sounds, no guarding, no rebound, no hepatosplenomegaly, no masses. EXTREMITIES: Left AV Fistula 2+ pulses, warm, well-perfused, no edema. NEUROLOGICAL: Cranial nerves II through XII grossly intact. Normal speech, gait observed normal. PSYCH: Normal mood, normal affect. SKIN: Warm, dry, normal turgor, no rashes or lesions noted. LABS Laboratory Results - last 24 hr 11/02/19 11/02/19 11/03/19 13:00 20:33 06:03 POC Glucometer 142 129 COVID-19 (ROCÍO) Not detected 11/03/19 11:51 POC Glucometer 155 COVID-19 (ROCÍO) HOSPITAL COURSE: Date of Admission:09/25/19 EKG: NORMAL SINUS RHYTHM ABNORMAL QRS-T ANGLE, CONSIDER PRIMARY T WAVE ABNORMALITY WHEN COMPARED WITH ECG OF 06-OCT-2019 13:34, ST NO LONGER DEPRESSED IN LATERAL LEADS T WAVE INVERSION NO LONGER EVIDENT IN LATERAL LEADS ECHO: EF 60-65% Intial CXR: There is a density by the left heart border at the base which could represent some focal atelectasis or scarring. Other etiologies must be considered. There is a large heart, sclerotic knob and normal anoop. Head CT: Negative C-Spine CT: Negative Renal US: Renal cortical echogenicity appears slightly increased bilaterally suggestive of medical renal disease Nuclear Stress Test: ST Depression in Inferior and Lateral Leads; Rare PVC LUE Doppler: Patent left upper extremity veins. No indirect signs of central venous obstruction. Patent left upper extremity arterial system with no evidence of significant atherosclerotic disease or stenosis. LE Duplex: No Evidence of DVT Date of Discharge: 11/03/19 69 yo M with HTN, DM, with a previous hx of "kidney infection" 2 weeks prior to admission (states he was not given medication for this), presented to the ED w/ 4 months of worsening b/l LE swelling as well as shortness of breath. Additionally had 4 episodes of syncope the week prior to admission with one resulting in a small chin laceration. [place] and came straight to the ED. He reported shortness of breath which improved with sitting up and tries to sleep flat but tends to sit up which causes disturbance in his sleep. He also has mild dizziness that is not positional. He denied fever, chills, nausea, or vomiting. The ED course was notable for giving Lasix and Kayexalate The patient was subsequently admitted to the medical floors where he was worked up for CKD w/ metabolic acidosis and given bicarb. Dyspnea 2/2 volume overload which he was started on Norvasc, Hydralazine, and Carvedilol, and Anemia. DM was managed w/ Januvia 25, and Metformin was held 2/2 lactic acidosis. Hypocalcemia was managed with Phoslo. Anemia was managed w/ Epo and Iron Sucrose Vascular Surgery was consulted for placement of a Permacath w/ eventual Left AVF placement for Dialysis and began a MWF dialysis schedule Due to the patient's immigration status, social work was contacted and he was eventually accepted for Medicaid B w/ outpatient Dialysis placement achieved. At time of discharge patient was medically stable. Minutes to complete discharge: 36 Discharge Summary Problems reviewed: Yes Reason For Visit: RENAL FAILURE, HYPERKALEMIA Current Active Problems Anemia of chronic disease (Chronic) Diabetes (Chronic) ESRD (end stage renal disease) (Chronic) Heart failure with preserved ejection fraction (Chronic) Hypertension (Chronic) Kidney failure (Chronic) Condition: Improved - Instructions Diet, Activity, Other Instructions: POST-OPERATIVE INSTRUCTIONS - FISTULA WOUND: on your left wrist , Check the incision daily after removal of the dressing for redness or drainage. If you note an redness or drainage, contact your surgeon immediately. Do not swim or soak in water (bath/hot tub. etc.) until cleared by your surgeon as this can lead to infection. Do not put creams or ointments on the wound until cleared by your surgeon. DIET: You may resume your regular diet ( low potassium , low sugar ) unless otherwise instructed by your physician. Increase your fiber intake FOLLOW UP: Please call the office to schedule your follow-up appointment in [address] Ly Call your doctor's office or go to the ER immediately if you develop: * Trouble breathing, chest tightness or shortness of breath * Oral temperature greater than 100.5 F * Excessive redness, swelling, or drainage at the incision site * Foul odor from the incision * New, increasing pain/numbness/weakness or coolness in your arm Your Visit: You were admitted to the hospital because of shortness of breath, leg swelling, and fainting. During your hospital stay, we evaluated you and found you have heart failure with Kidney Failure. We treated you with medications, fluids, hemodialysis and your symptoms resolved. Medications Please STOP taking Avapro until you talk to the stapler coil unit about whether it is okay to take this medication while on hemodialysis. Please continue all of your medications as prescribed. Stop taking metformin . take GLIPIZIDE 2.5mg daily instead. Blood pressure medications: continue to take: amlodipine 10mg daily, hydralazine 35mg two times per day, Coreg 12.5mg two times per day, Losartan 50mg per day (discontinue your other SARTAN medication) , torsemide 40mg once per day Follow up: Please follow up with your stapler coil unit Dr. Galdamez , within 1 week. Please follow up with the [facility]er Dr. Cecil Badillo within 2 weeks. Please follow up with your Primary Care physician, or the Primary Care physician we have provided for you Dr. Sameer Fitzpatrick, within 1 week. If you experience worsening symptoms, chest pain, shortness of breath, abdominal pain, or worsening of your condition, please come to the emergency room or call 911. Additional Instructions: -You are being discharged to your home. You will be receiving continued hemodialysis as an outpatient; You first session will be tomorrow 11/04/2019 at 2:30PM. -Please return to the Emergency Department if you experience worsening pain, fevers, chills, shortness of breath, or chest pain, or if you experience any worsening, new or concerning symptoms. Referrals: Cecil Badillo MD [Staff Physician] - 2 Weeks (Cardiomyopathy. Hospital admission for Heart failure possibly 2/2 fluid overload from acute renal failure; now on hemodialysis with permacath. Kidney biopsy done to evaluate cause of renal failure.) Ronnie Ly DO [Staff Physician] - Luiz Galdamez MD [Staff Physician] - 2 Weeks Sameer Fitzpatrick MD [Staff Physician] - 1 Week Disposition: HOME - Home Medications Comprehensive Discharge Medication List: Ambulatory Orders Amlodipine Besylate 10 mg PO DAILY 30 Days #30 tablet 11/03/19 Aspirin Coated [Ecotrin -] 81 mg PO DAILY tablet.ec 11/03/19 Atorvastatin Ca [Lipitor] 10 mg PO HS #30 tablet 11/03/19 Calcitriol [Calcitriol -] 0.25 mcg PO DAILY #30 capsule 11/03/19 Calcium Acetate [Phoslo -] 667 mg PO TIDCM #90 capsule 11/03/19 Carvedilol [Coreg -] 12.5 mg PO BID #60 tablet 11/03/19 Glipizide [Glipizide Xl] 2.5 mg PO DAILY #30 tab.er.24 11/03/19 Losartan Potassium [Cozaar -] 50 mg PO DAILY #30 tablet 11/03/19 Torsemide [Demadex -] 40 mg PO DAILY #30 tablet 11/03/19 hydrALAZINE HCL [Apresoline -] 35 mg PO BID #60 tablet 11/03/19 This patient is new to me today: No Emergency Visit: No Critical Care patient: No - Discharge Referral Referred to [facility] Yes Physician Referral: Ronnie Ly DO ([facility]) ATTENDING PHYSICIAN STATEMENT I saw and evaluated the patient. I reviewed the resident's note and discussed the case with the resident. I agree with the resident's findings and plan as documented. SUBJECTIVE: OBJECTIVE: ASSESSMENT AND PLAN:
--- NOTE | 2019-11-03 18:23 | PN ---
Teaching Attending Note Name of Resident: Yan Celis ATTENDING PHYSICIAN STATEMENT I saw and evaluated the patient. I reviewed the resident's note and discussed the case with the resident. I agree with the resident's findings and plan as documented. SUBJECTIVE: seen at around 11 am . No complaints today . OBJECTIVE: NAD. CV: RRR, 3/6 SM at LLSb and Lamar Lungs: CTAB Ext: No edema or erythema on upper or lower extremities. observed walking with PT ASSESSMENT AND PLAN: 69 y/o man with h/o hypertension, non-insulin dependent DM, cardiomyopathy, and possible CKD , who presneted with LE edema and was found to have severe diabetic nephropathy and hyperkalemia requiring HD. 1- ESRD 2/2 severe diabetic nephropathy 2- Hyperkalemia ,. resolved 3- Volume overload from renal disease: improved 4- HTN 5- DM 6- Anemia 7- S/p diastolic CHF. now resolved. plan : - d/w social media intern. Hd placement and insurance . - patient will stay with nephew - all meds were prescribed. he can't afford januvia , so low dose glipizide was ordered due to persistantly elevated fasting glucose - needs hep B vaccine as out pt. f/u with pcp and nephro dc home
--- NOTE | 2019-11-04 06:30 | PN ---
Progress Note, Physician Chief Complaint: Pt A&Ox3; no chest pain or dyspnea. Upset that insurance (Medicaid) has not yet been sees an approved by pharmacy, and his bill will be expensive. History of Present Illness: Mr. Vuong is a 69 year old male (. [facility]) with a significant past medical history of HTN, DM, CHF, and renal dysfunction, who presents to the ED with 4 months of bilateral LE edema. As per patient, he presented to the ED from the [facility] secondary to receiving inadequate care. Patient also endorses one month of intermittent shortness of breath, occasional mild sharp central chest pain on exertion lasting a few seconds, bilateral kidney pain and 4 episodes of syncope last week, with head injury. Denies fever, chills, headache, nausea, vomiting, or urinary changes. - Objective Vital Signs: Vital Signs Temperature 98.5 F 11/03/19 14:49 Pulse Rate 66 11/03/19 14:49 Respiratory Rate 18 11/03/19 14:49 Blood Pressure 144/55 L 11/03/19 14:49 O2 Sat by Pulse Oximetry (%) 97 11/03/19 14:49 Constitutional: Yes: Anxious Eyes: Yes: WNL HENT: Yes: WNL Neck: Yes: WNL Cardiovascular: Yes: S1, S2, S4 Respiratory: Yes: Regular. No: Diminished Gastrointestinal: Yes: Soft. No: Tenderness ...Rectal Exam: Yes: Deferred Genitourinary: No: Anuria Musculoskeletal: Yes: Muscle Weakness Extremities: Yes: Cool Edema: No Peripheral Pulses WNL: Yes Integumentary: Yes: Incision (AV graft LUE) Wound/Incision: Yes: Dressing Removed Neurological: Yes: Alert, Oriented, Weakness Psychiatric: Yes: Alert, Oriented, Other (anxiety) Labs: CBC, BMP 11/02/19 08:45 11/02/19 08:45 INR, PTT INR 1.03 (0.83-1.09) 09/25/19 00:09 - ....Imaging Chest X-ray: Image Reviewed EKG: Image Reviewed Assessment/Plan ESRD; on hemodialysis s/p AV fistula Syncope anemia: on SOPHIE severe hyperkalemia s/p rhabdomyolysis HTN diastolic CHF elevated TNI; stress MIBI now shows small area of mildly intense inferior ischemia EKG: NSR; ? old septal infarct ECHO: normal LVEF; abnormal diastolic compliance; mild-moderate LVH; small pericardial effusion Rec: s/p renal biopsy Increased amlodipine to 10 mg daily; increased hydralazine to 35 mg bid; continue Coreg 12.5 bid; losartan 50 mg daily, and may increase dose;f/u BP and HR serially. Aggressive BP, lipid, glucose control. Cholesterol: LDL 68; HDL 45; continue atorvastatin; follow heart-healthy diet; increase exercise. Continue hemodialysis per street openings inspector. Physical therapy. Assure ability of pt to obtain medications (insurance approved but pending?); in particular, Januvia would be very expensive (at present, >$500 for ? one month), and, if possible, would have to be changed.
== END 2019-11-03 18:20 | disposition home or self-care (01) | DRG 673 ==
LOC: JER 22:48 → JERBED 09-25 01:43 → JICU 09-25 11:23 → J4W 09-26 19:21 → J6S 10-03 15:22
PROVIDERS: ADMIT Internal Medicine; ATTEND Internal Medicine
PROC: 05HM33Z Insertion of Infusion Device into Right Internal Jugular Vein, Percutaneous Approach (ICD-10-PCS; principal; 2019-09-25)
PROC: B543ZZA Ultrasonography of Right Jugular Veins, Guidance (ICD-10-PCS; 2019-09-25)
PROC: 5A1D70Z Performance of Urinary Filtration, Intermittent, Less than 6 Hours Per Day (ICD-10-PCS; 2019-09-25)
PROC: 0TB03ZX Excision of Right Kidney, Percutaneous Approach, Diagnostic (ICD-10-PCS; 2019-09-28)
PROC: 0JH63XZ Insertion of Tunneled Vascular Access Device into Chest Subcutaneous Tissue and Fascia, Percutaneous Approach (ICD-10-PCS; 2019-09-30)
PROC: 05HM33Z Insertion of Infusion Device into Right Internal Jugular Vein, Percutaneous Approach (ICD-10-PCS; 2019-09-30)
PROC: B543ZZA Ultrasonography of Right Jugular Veins, Guidance (ICD-10-PCS; 2019-09-30)
PROC: 031 Upper Arteries, Bypass (ICD-10-PCS; 2019-10-13)
PROC: 5A1D70Z Performance of Urinary Filtration, Intermittent, Less than 6 Hours Per Day (ICD-10-PCS; 2019-10-26)
PROC: 5A1D70Z Performance of Urinary Filtration, Intermittent, Less than 6 Hours Per Day (ICD-10-PCS; 2019-10-28)
PROC: 5A1D70Z Performance of Urinary Filtration, Intermittent, Less than 6 Hours Per Day (ICD-10-PCS; 2019-10-31)
PROC: 5A1D70Z Performance of Urinary Filtration, Intermittent, Less than 6 Hours Per Day (ICD-10-PCS; 2019-11-02)
DX: N17.9 Acute kidney failure, unspecified (principal); I50.33 Acute on chronic diastolic (congestive) heart failure; I42.8 Other cardiomyopathies; E87.2 Acidosis; M62.82 Rhabdomyolysis; I31.3 Pericardial effusion (noninflammatory); I24.8 Other forms of acute ischemic heart disease; I13.2 Hypertensive heart and chronic kidney disease with heart failure and with stage 5 chronic kidney disease, or end stage renal disease; J44.9 Chronic obstructive pulmonary disease, unspecified; E87.5 Hyperkalemia; D64.9 Anemia, unspecified; E83.39 Other disorders of phosphorus metabolism; E87.70 Fluid overload, unspecified; F41.9 Anxiety disorder, unspecified; Z88.0 Allergy status to penicillin; D63.8 Anemia in other chronic diseases classified elsewhere; E11.21 Type 2 diabetes mellitus with diabetic nephropathy; E83.51 Hypocalcemia; E87.6 Hypokalemia; E11.22 Type 2 diabetes mellitus with diabetic chronic kidney disease; N18.6 End stage renal disease; Z99.2 Dependence on renal dialysis
CPT/HCPCS: 36415; 50200; 70450-TC; 71045-TC-FY; 72125-TC; 76775-TC; 76856-TC; 78452-TC; 80048; 80053; 80061; 80074; 80076; 81003; 82272; 82550; 82553; 82565; 82728; 82962; 83036; 83520; 83540; 83550; 83721; 83735; 83880; 83970; 84100; 84155; 84156; 84165; 84300; 84443; 84484; 84540; 85025; 85027; 85610; 85730; 86038; 86162; 86256; 86704; 86706; 86707; 86708; 86709; 86780; 86803; 87086; 87205; 87340; 87389; 88300-TC; 90715; 93005; 93010; 93017; 93306-TC; 93931; 93970-TC; 93971; 94760; 97116-GP; 97161-GP; 99285-25; A9502; J0131; J0885; J1644; J1756; J2785; Q5106; U0003

== ENCOUNTER 2019-12-30 04:56 | Day surgery (SDC) | payer OTHER ==
[2019-12-29 16:45] VITALS: BMI 24.2
[2019-12-30] MEDS ORDERED: HEPARIN NA (PORCINE) 5,000 UNITS/ML 1ML VIAL ONE (07:41)
[2019-12-30] MEDS ORDERED: LIDOCAINE HCL 1%, 10 MG/ML (20ML VIAL) ONE (07:41)
[2019-12-30 07:53] LABS: POTASSIUM 4.8 mmol/L (3.5-5.1)
[2019-12-30 07:55] LABS: ALBUMIN 4.3 g/dl (3.4-5.0); BLOOD UREA NITROGEN 28.9 mg/dL (7-18); CALCIUM 9.2 mg/dL (8.5-10.1)
[2019-12-30 08:00] LABS: BILIRUBIN,TOTAL 0.5 mg/dL (0.2-1); TOT PROT 8.1 g/dl (6.4-8.2)
[2019-12-30] MEDS ORDERED: ONDANSETRON 4 MG/2 ML VIAL IVPUSH PRN (08:38)
[2019-12-30] MEDS ORDERED: MIDAZOLAM HCL 2 MG/2 ML SINGLE DOSE VIAL ONE ×2 (09:21)
[2019-12-30] MEDS ORDERED: ceFAZolin SODIUM 1 GM VIAL IVPB ONE (09:30)
[2019-12-30] MEDS ORDERED: LIDOCAINE HCL 1%, 10 MG/ML (50 mL VIAL) INF ONE (09:35)
[2019-12-30 11:10] VITALS: TEMP 97
[2019-12-30 12:22] VITALS: BP 111/59; PULSE 56
== END 2019-12-30 12:30 | disposition home or self-care (01) ==
LOC: JASU-SURG 04:56
PROVIDERS: ATTEND Surgery Vascular Surgery
PROC: 03WY3JZ Revision of Synthetic Substitute in Upper Artery, Percutaneous Approach (ICD-10-PCS; principal; 2019-12-30 09:00)
DX: T82.858A Stenosis of other vascular prosthetic devices, implants and grafts, initial encounter (principal); I12.0 Hypertensive chronic kidney disease with stage 5 chronic kidney disease or end stage renal disease; E11.22 Type 2 diabetes mellitus with diabetic chronic kidney disease; N18.6 End stage renal disease; Z99.2 Dependence on renal dialysis
CPT/HCPCS: 36415; 76000-TC-FY; 80053; 94760; J1644

== ENCOUNTER 2020-03-19 10:18 | Inpatient (IN) | payer OTHER ==
[2020-03-19 11:45] LABS: BASO % 0.4 % (0-2.0); EOS % 0.3 % (0-4.5); HEMATOCRIT 28.5 % (35.4-49); HEMOGLOBIN 9.4 GM/dL (11.7-16.9); LYMPH % 16.6 % (8-40); MEAN CELL VOLUME 90.8 fl (80-96); MEAN PLT VOLUME 8.3 fl (7.5-11.1); MONO % 17.2 % (3.8-10.2); NEUT % 65.5 % (42.8-82.8); PLATELET COUNT 102 K/MM3 (134-434); RBC 3.14 M/mm3 (4.00-5.60); RDW 16.5 % (11.9-15.9); WHITE BLOOD COUNT 5.3 K/mm3 (4.0-10.0)
[2020-03-19 12:10] LABS: POTASSIUM 4.4 mmol/L (3.5-5.1)
[2020-03-19 12:11] LABS: CALCIUM 8.3 mg/dL (8.5-10.1)
[2020-03-19 12:12] LABS: ALBUMIN 3.5 g/dl (3.4-5.0); BLOOD UREA NITROGEN 52.4 mg/dL (7-18)
[2020-03-19 12:17] LABS: BILIRUBIN,TOTAL 0.5 mg/dL (0.2-1); TOT PROT 6.7 g/dl (6.4-8.2)
[2020-03-19 12:21] LABS: CREATININE 9.6 mg/dL (0.55-1.3)
[2020-03-19 12:27] LABS: VENOUS O2 SATURATION 51.5 % (70-80); VENOUS PCO2 48.8 mmHg (38-52); VENOUS PH 7.344 (7.310-7.410)
[2020-03-19 12:47] LABS: ACTIVATED PTT 30.9 SECONDS (25.2-36.5); INR 1.05 (0.83-1.09); PROTHROMBIN TIME (PATIENT) 12.9 SEC (9.7-13.0)
[2020-03-19] MEDS ORDERED: ACETAMINOPHEN 1000 MG/100 ML VIAL (NON FORMULARY) IVPB ONE (13:15)
[2020-03-19] MEDS ORDERED: ACETAMINOPHEN INJECTION 100 ML IVPB ONE (13:23)
[2020-03-19] MEDS ORDERED: LIDOCAINE 5% TOPICAL PATCH TP ONE (13:59)
[2020-03-19] MEDS ORDERED: LIDOCAINE 5% TOPICAL PATCH ONE (14:04)
[2020-03-19] MEDS ORDERED: VANCOMYCIN 1 GM in D5W (PRE-DOCKED) 1,000 MG/250 ML IVPB ONE (14:25)
[2020-03-19] MEDS ORDERED: MEROPENEM 1 GM in DEXTROSE 5%-WATER 100 ML IVPB ONE (14:25)
[2020-03-19] MEDS ORDERED: VANCOMYCIN 1 GRAM (PRE-DOCKED) 1,000 MG/250 ML BAG IVPB ONE (14:37)
[2020-03-19] MEDS: INSULIN SLIDING SCALE (NOVOLOG) 1 VIAL SQ SCH ×2 (17:03→22:13)
[2020-03-19 17:28] LABS: EPI CELLS 14 /uL (0-25.1); HYALINE CASTS 1 /uL (0-3.1); URINE APPEARANCE CLEAR; URINE BACTERIA 296 /uL (0-1359); URINE BILIRUBIN NEGATIVE (NEGATIVE); URINE COLOR YELLOW; URINE GLUCOSE (UA) NEGATIVE (NEGATIVE); URINE KETONE TRACE (NEGATIVE); URINE LEUK ESTERASE NEGATIVE (NEGATIVE); URINE NITRITE NEGATIVE (NEGATIVE); URINE PROTEIN 1+ (NEGATIVE); URINE RBC 14 /uL (0-23.9); URINE UROBILINOGEN 0.2 mg/dL (0.2-1.0); URINE WBC 9 /uL (0-25.8)
[2020-03-19] MEDS: CALCIUM ACETATE 667 MG CAPSULE (FP) PO SCH (18:12)
[2020-03-19] MEDS ORDERED: TORSEMIDE 20 MG TABLET (FP) PO SCH (22:00)
[2020-03-19] MEDS ORDERED: CARVEDILOL 12.5 MG TABLET (FP) ONE (22:05)
[2020-03-19] MEDS ORDERED: HEPARIN NA (PORCINE) 5,000 UNITS/ML 1ML VIAL ONE (22:06)
[2020-03-19] MEDS: CARVEDILOL 12.5 MG TABLET (FP) PO SCH (22:13)
[2020-03-19] MEDS: hydrALAZINE HCL 10 MG TABLET PO SCH (22:13)
[2020-03-19] MEDS: HEPARIN NA (PORCINE) 5,000 UNITS/ML 1ML VIAL SQ SCH (22:13)
[2020-03-19] MEDS: LIDOCAINE PATCH REMOVAL MC SCH (22:13)
[2020-03-20 01:16] VITALS: BMI 24.8
[2020-03-20] MEDS: HEPARIN NA (PORCINE) 5,000 UNITS/ML 1ML VIAL SQ SCH ×3 (05:32→22:40)
[2020-03-20] MEDS: ACETAMINOPHEN 325 MG TABLET (FP) PO PRN ×2 (05:32→16:58)
[2020-03-20] MEDS: INSULIN SLIDING SCALE (NOVOLOG) 1 VIAL SQ SCH ×4 (06:00→22:40)
[2020-03-20] MEDS: TORSEMIDE 20 MG TABLET (FP) PO SCH ×2 (08:27→13:39)
[2020-03-20] MEDS: CALCIUM ACETATE 667 MG CAPSULE (FP) PO SCH ×3 (08:32→16:54)
[2020-03-20] MEDS ORDERED: SODIUM CHLORIDE 250 ML IV PRN (09:29)
[2020-03-20 09:53] LABS: BASO % 0.6 % (0-2.0); EOS % 2.3 % (0-4.5); HEMATOCRIT 26.7 % (35.4-49); MCH 30.5 pg (25.7-33.7); MCHC 33.8 g/dl (32.0-35.9); MEAN CELL VOLUME 90.3 fl (80-96); MEAN PLT VOLUME 8.3 fl (7.5-11.1); MONO % 13.6 % (3.8-10.2); NEUT % 52.5 % (42.8-82.8); PLATELET COUNT 93 K/MM3 (134-434); RBC 2.95 M/mm3 (4.00-5.60); WHITE BLOOD COUNT 3.3 K/mm3 (4.0-10.0)
[2020-03-20] MEDS ORDERED: ASPIRIN COATED 81 MG TABLET.EC PO SCH (10:00)
[2020-03-20 10:11] LABS: POTASSIUM 4.4 mmol/L (3.5-5.1)
[2020-03-20 10:20] LABS: TOT PROT 6.3 g/dl (6.4-8.2)
[2020-03-20 10:21] LABS: BILIRUBIN,TOTAL 0.9 mg/dL (0.2-1); CALCIUM 8.1 mg/dL (8.5-10.1)
[2020-03-20 10:23] LABS: ALBUMIN 3.2 g/dl (3.4-5.0); BLOOD UREA NITROGEN 71.1 mg/dL (7-18)
[2020-03-20 10:45] LABS: CREATININE 11.1 mg/dL (0.55-1.3)
[2020-03-20] MEDS: CARVEDILOL 12.5 MG TABLET (FP) PO SCH ×3 (11:51→22:40)
[2020-03-20] MEDS: hydrALAZINE HCL 10 MG TABLET PO SCH ×2 (11:51→22:40)
[2020-03-20] MEDS: amLODIPine BESYLATE 10 MG TABLET (FP) PO SCH (11:52)
[2020-03-20] MEDS: MULTIVITAMINS (DAILY MVI) TABLET (FP) PO SCH (11:52)
[2020-03-20] MEDS: LOSARTAN POTASSIUM 50 MG TABLET PO SCH (11:52)
[2020-03-20] MEDS: LIDOCAINE PATCH REMOVAL MC SCH ×2 (22:41→23:14)
[2020-03-20] MEDS: MENTHOL/PHENOL 1 EACH UD MM PRN (22:41)
[2020-03-21] MEDS: HEPARIN NA (PORCINE) 5,000 UNITS/ML 1ML VIAL SQ SCH ×3 (05:38→22:24)
[2020-03-21] MEDS: TORSEMIDE 20 MG TABLET (FP) PO SCH ×2 (05:38→14:07)
[2020-03-21] MEDS: MENTHOL/PHENOL 1 EACH UD MM PRN ×2 (05:39→09:45)
[2020-03-21] MEDS: ACETAMINOPHEN 325 MG TABLET (FP) PO PRN ×2 (05:39→09:46)
[2020-03-21] MEDS: INSULIN SLIDING SCALE (NOVOLOG) 1 VIAL SQ SCH ×4 (06:21→22:23)
[2020-03-21] MEDS: CALCIUM ACETATE 667 MG CAPSULE (FP) PO SCH ×3 (08:25→17:44)
[2020-03-21 08:27] LABS: BASO % 0.6 % (0-2.0); EOS % 4.3 % (0-4.5); HEMATOCRIT 27.1 % (35.4-49); HEMOGLOBIN 9.5 GM/dL (11.7-16.9); LYMPH % 32.7 % (8-40); MCH 31.2 pg (25.7-33.7); MCHC 35.1 g/dl (32.0-35.9); MEAN PLT VOLUME 7.9 fl (7.5-11.1); MONO % 13.2 % (3.8-10.2); NEUT % 49.2 % (42.8-82.8); PLATELET COUNT 100 K/MM3 (134-434); RBC 3.05 M/mm3 (4.00-5.60); RDW 16.1 % (11.9-15.9); WHITE BLOOD COUNT 3.3 K/mm3 (4.0-10.0)
[2020-03-21] MEDS: MULTIVITAMINS (DAILY MVI) TABLET (FP) PO SCH (09:44)
[2020-03-21] MEDS: hydrALAZINE HCL 10 MG TABLET PO SCH ×2 (10:09→22:24)
[2020-03-21] MEDS: CARVEDILOL 12.5 MG TABLET (FP) PO SCH ×2 (10:10→22:24)
[2020-03-21] MEDS: LOSARTAN POTASSIUM 50 MG TABLET PO SCH (10:10)
[2020-03-21] MEDS: amLODIPine BESYLATE 10 MG TABLET (FP) PO SCH (10:10)
[2020-03-21 10:47] LABS: ALBUMIN 3.3 g/dl (3.4-5.0); BILIRUBIN,TOTAL 0.3 mg/dL (0.2-1); BLOOD UREA NITROGEN 37.7 mg/dL (7-18); CALCIUM 7.8 mg/dL (8.5-10.1); MAGNESIUM 1.9 mg/dL (1.8-2.4); PHOSPHOROUS 4.6 mg/dL (2.5-4.9); POTASSIUM 4.3 mmol/L (3.5-5.1); TOT PROT 6.4 g/dl (6.4-8.2)
[2020-03-21 11:17] LABS: CREATININE 7.5 mg/dL (0.55-1.3)
[2020-03-22] MEDS: HEPARIN NA (PORCINE) 5,000 UNITS/ML 1ML VIAL SQ SCH ×3 (05:56→22:01)
[2020-03-22] MEDS: INSULIN SLIDING SCALE (NOVOLOG) 1 VIAL SQ SCH ×4 (06:05→22:06)
[2020-03-22] MEDS ORDERED: SODIUM CHLORIDE 250 ML IV PRN (07:40)
[2020-03-22] MEDS ORDERED: PT OWN MED DRAWER 7, Y5N ONE (08:22)
[2020-03-22] MEDS ORDERED: EPOETIN ALFA 10,000 UNIT/1 ML VIAL IVPUSH ONE (08:30)
[2020-03-22 08:47] LABS: BASO % 0.5 % (0-2.0); EOS % 4.9 % (0-4.5); HEMOGLOBIN 9.3 GM/dL (11.7-16.9); LYMPH % 30.2 % (8-40); MCH 30.5 pg (25.7-33.7); MCHC 34.2 g/dl (32.0-35.9); MEAN CELL VOLUME 88.9 fl (80-96); MEAN PLT VOLUME 8.1 fl (7.5-11.1); MONO % 10.9 % (3.8-10.2); NEUT % 53.5 % (42.8-82.8); PLATELET COUNT 106 K/MM3 (134-434); RBC 3.04 M/mm3 (4.00-5.60); RDW 15.9 % (11.9-15.9); WHITE BLOOD COUNT 3.4 K/mm3 (4.0-10.0)
[2020-03-22 09:22] LABS: POTASSIUM 4.5 mmol/L (3.5-5.1)
[2020-03-22 09:24] LABS: CALCIUM 7.9 mg/dL (8.5-10.1)
[2020-03-22 09:26] LABS: ALBUMIN 3.3 g/dl (3.4-5.0); BLOOD UREA NITROGEN 53.4 mg/dL (7-18); MAGNESIUM 1.9 mg/dL (1.8-2.4)
[2020-03-22 09:29] LABS: BILIRUBIN,TOTAL 0.5 mg/dL (0.2-1); PHOSPHOROUS 4.5 mg/dL (2.5-4.9); TOT PROT 6.3 g/dl (6.4-8.2)
[2020-03-22 09:52] LABS: CREATININE 8.8 mg/dL (0.55-1.3)
[2020-03-22] MEDS: CARVEDILOL 12.5 MG TABLET (FP) PO SCH ×2 (11:32→21:59)
[2020-03-22] MEDS: CALCIUM ACETATE 667 MG CAPSULE (FP) PO SCH ×3 (11:32→17:39)
[2020-03-22] MEDS: amLODIPine BESYLATE 10 MG TABLET (FP) PO SCH (11:32)
[2020-03-22] MEDS: MULTIVITAMINS (DAILY MVI) TABLET (FP) PO SCH (11:32)
[2020-03-22] MEDS: LOSARTAN POTASSIUM 50 MG TABLET PO SCH (11:32)
[2020-03-22] MEDS: hydrALAZINE HCL 10 MG TABLET PO SCH ×2 (11:32→22:00)
[2020-03-23] MEDS: HEPARIN NA (PORCINE) 5,000 UNITS/ML 1ML VIAL SQ SCH ×3 (05:27→23:45)
[2020-03-23] MEDS: INSULIN SLIDING SCALE (NOVOLOG) 1 VIAL SQ SCH ×4 (06:23→23:52)
[2020-03-23] MEDS: CARVEDILOL 12.5 MG TABLET (FP) PO SCH ×2 (09:24→23:35)
[2020-03-23] MEDS: amLODIPine BESYLATE 10 MG TABLET (FP) PO SCH (09:24)
[2020-03-23] MEDS: CALCIUM ACETATE 667 MG CAPSULE (FP) PO SCH ×3 (09:24→17:31)
[2020-03-23] MEDS: hydrALAZINE HCL 10 MG TABLET PO SCH ×2 (09:24→23:36)
[2020-03-23] MEDS: MULTIVITAMINS (DAILY MVI) TABLET (FP) PO SCH (09:24)
[2020-03-23] MEDS: LOSARTAN POTASSIUM 50 MG TABLET PO SCH (09:25)
[2020-03-23] MEDS: TORSEMIDE 20 MG TABLET (FP) PO SCH (09:25)
[2020-03-24] MEDS: HEPARIN NA (PORCINE) 5,000 UNITS/ML 1ML VIAL SQ SCH ×3 (05:28→21:28)
[2020-03-24] MEDS ORDERED: SODIUM CHLORIDE 250 ML IV PRN (07:06)
[2020-03-24] MEDS ORDERED: EPOETIN ALFA 10,000 UNIT/1 ML VIAL IVPUSH ONE (08:00)
[2020-03-24] MEDS: INSULIN SLIDING SCALE (NOVOLOG) 1 VIAL SQ SCH ×4 (08:09→21:44)
[2020-03-24] MEDS: EPOETIN ALFA-EPBX 10,000 UNIT/ML VIAL IVPUSH ONE ×2 (09:45→15:41)
[2020-03-24] MEDS ORDERED: PT OWN MED DRAWER 7, Y5N ONE ×2 (10:15→11:48)
[2020-03-24] MEDS: CARVEDILOL 12.5 MG TABLET (FP) PO SCH ×2 (11:45→21:28)
[2020-03-24] MEDS: CALCIUM ACETATE 667 MG CAPSULE (FP) PO SCH ×3 (11:45→17:31)
[2020-03-24] MEDS: LOSARTAN POTASSIUM 50 MG TABLET PO SCH (11:45)
[2020-03-24] MEDS: hydrALAZINE HCL 10 MG TABLET PO SCH ×2 (11:45→21:28)
[2020-03-24] MEDS: amLODIPine BESYLATE 10 MG TABLET (FP) PO SCH (11:46)
[2020-03-24] MEDS: MULTIVITAMINS (DAILY MVI) TABLET (FP) PO SCH (11:46)
[2020-03-24] MEDS: TORSEMIDE 20 MG TABLET (FP) PO SCH (11:50)
[2020-03-24 14:50] LABS: HEMATOCRIT 27.7 % (35.4-49); HEMOGLOBIN 9.5 GM/dL (11.7-16.9); MCH 30.6 pg (25.7-33.7); MCHC 34.1 g/dl (32.0-35.9); MEAN CELL VOLUME 89.7 fl (80-96); MEAN PLT VOLUME 8.6 fl (7.5-11.1); PLATELET COUNT 113 K/MM3 (134-434); POTASSIUM 4.8 mmol/L (3.5-5.1); RBC 3.09 M/mm3 (4.00-5.60); RDW 15.9 % (11.9-15.9); WHITE BLOOD COUNT 4.2 K/mm3 (4.0-10.0)
[2020-03-24 14:52] LABS: BLOOD UREA NITROGEN 59.4 mg/dL (7-18); CALCIUM 8.5 mg/dL (8.5-10.1)
[2020-03-24 14:56] LABS: PHOSPHOROUS 3.9 mg/dL (2.5-4.9)
[2020-03-24 15:03] LABS: CREATININE 8.7 mg/dL (0.55-1.3)
[2020-03-25] MEDS: HEPARIN NA (PORCINE) 5,000 UNITS/ML 1ML VIAL SQ SCH ×3 (06:04→21:47)
[2020-03-25] MEDS: INSULIN SLIDING SCALE (NOVOLOG) 1 VIAL SQ SCH ×4 (06:10→22:11)
[2020-03-25] MEDS: TORSEMIDE 20 MG TABLET (FP) PO SCH (11:16)
[2020-03-25] MEDS: CALCIUM ACETATE 667 MG CAPSULE (FP) PO SCH ×3 (11:19→17:31)
[2020-03-25] MEDS: LOSARTAN POTASSIUM 50 MG TABLET PO SCH (11:19)
[2020-03-25] MEDS: CARVEDILOL 12.5 MG TABLET (FP) PO SCH ×2 (11:20→21:47)
[2020-03-25] MEDS: hydrALAZINE HCL 10 MG TABLET PO SCH ×2 (11:20→21:47)
[2020-03-25] MEDS: amLODIPine BESYLATE 10 MG TABLET (FP) PO SCH (11:20)
[2020-03-25] MEDS: MULTIVITAMINS (DAILY MVI) TABLET (FP) PO SCH (11:20)
[2020-03-26] MEDS: HEPARIN NA (PORCINE) 5,000 UNITS/ML 1ML VIAL SQ SCH ×3 (05:48→22:11)
[2020-03-26] MEDS: INSULIN SLIDING SCALE (NOVOLOG) 1 VIAL SQ SCH ×4 (07:17→22:11)
[2020-03-26] MEDS ORDERED: PT OWN MED DRAWER 7, Y5N ONE (10:39)
[2020-03-26] MEDS: TORSEMIDE 20 MG TABLET (FP) PO SCH (10:43)
[2020-03-26] MEDS: LOSARTAN POTASSIUM 50 MG TABLET PO SCH (10:44)
[2020-03-26] MEDS: CALCIUM ACETATE 667 MG CAPSULE (FP) PO SCH ×3 (10:45→17:49)
[2020-03-26] MEDS: amLODIPine BESYLATE 10 MG TABLET (FP) PO SCH (10:48)
[2020-03-26] MEDS: MULTIVITAMINS (DAILY MVI) TABLET (FP) PO SCH (10:48)
[2020-03-26] MEDS: hydrALAZINE HCL 10 MG TABLET PO SCH ×2 (10:48→21:53)
[2020-03-26] MEDS: CARVEDILOL 12.5 MG TABLET (FP) PO SCH ×2 (10:48→21:53)
[2020-03-27] MEDS: HEPARIN NA (PORCINE) 5,000 UNITS/ML 1ML VIAL SQ SCH ×3 (06:14→22:32)
[2020-03-27] MEDS: INSULIN SLIDING SCALE (NOVOLOG) 1 VIAL SQ SCH ×4 (06:22→22:34)
[2020-03-27] MEDS ORDERED: SODIUM CHLORIDE 250 ML IV PRN (07:00)
[2020-03-27] MEDS ORDERED: EPOETIN ALFA 10,000 UNIT/1 ML VIAL IVPUSH ONE (08:00)
[2020-03-27] MEDS: CALCIUM ACETATE 667 MG CAPSULE (FP) PO SCH ×3 (08:22→18:21)
[2020-03-27 09:28] LABS: HEMATOCRIT 28.6 % (35.4-49); HEMOGLOBIN 9.8 GM/dL (11.7-16.9); MCH 31.1 pg (25.7-33.7); MCHC 34.4 g/dl (32.0-35.9); MEAN CELL VOLUME 90.4 fl (80-96); PLATELET COUNT 188 K/MM3 (134-434); RBC 3.17 M/mm3 (4.00-5.60); RDW 15.9 % (11.9-15.9); WHITE BLOOD COUNT 5.8 K/mm3 (4.0-10.0)
[2020-03-27 09:37] LABS: POTASSIUM 5.1 mmol/L (3.5-5.1)
[2020-03-27 09:38] LABS: CALCIUM 8.9 mg/dL (8.5-10.1)
[2020-03-27 09:39] LABS: BLOOD UREA NITROGEN 63.3 mg/dL (7-18)
[2020-03-27 09:42] LABS: PHOSPHOROUS 3.8 mg/dL (2.5-4.9)
[2020-03-27 09:54] LABS: CREATININE 9.8 mg/dL (0.55-1.3)
[2020-03-27] MEDS ORDERED: PT OWN MED DRAWER 7, Y5N ONE (11:36)
[2020-03-27] MEDS: hydrALAZINE HCL 10 MG TABLET PO SCH ×2 (11:41→22:32)
[2020-03-27] MEDS: CARVEDILOL 12.5 MG TABLET (FP) PO SCH ×2 (11:41→22:32)
[2020-03-27] MEDS: MULTIVITAMINS (DAILY MVI) TABLET (FP) PO SCH (11:41)
[2020-03-27] MEDS: LOSARTAN POTASSIUM 50 MG TABLET PO SCH (11:42)
[2020-03-27] MEDS: amLODIPine BESYLATE 10 MG TABLET (FP) PO SCH (11:42)
[2020-03-27] MEDS: TORSEMIDE 20 MG TABLET (FP) PO SCH (11:42)
[2020-03-28] MEDS: HEPARIN NA (PORCINE) 5,000 UNITS/ML 1ML VIAL SQ SCH ×3 (06:03→21:35)
[2020-03-28] MEDS: INSULIN SLIDING SCALE (NOVOLOG) 1 VIAL SQ SCH ×4 (06:05→21:39)
[2020-03-28] MEDS: TORSEMIDE 20 MG TABLET (FP) PO SCH (11:03)
[2020-03-28] MEDS: CARVEDILOL 12.5 MG TABLET (FP) PO SCH ×2 (11:04→21:34)
[2020-03-28] MEDS: LOSARTAN POTASSIUM 50 MG TABLET PO SCH (11:04)
[2020-03-28] MEDS: CALCIUM ACETATE 667 MG CAPSULE (FP) PO SCH ×3 (11:04→19:20)
[2020-03-28] MEDS: MULTIVITAMINS (DAILY MVI) TABLET (FP) PO SCH (11:04)
[2020-03-28] MEDS: hydrALAZINE HCL 10 MG TABLET PO SCH ×2 (11:04→21:35)
[2020-03-28] MEDS: amLODIPine BESYLATE 10 MG TABLET (FP) PO SCH (11:04)
[2020-03-29] MEDS: HEPARIN NA (PORCINE) 5,000 UNITS/ML 1ML VIAL SQ SCH ×3 (05:48→21:12)
[2020-03-29] MEDS: INSULIN SLIDING SCALE (NOVOLOG) 1 VIAL SQ SCH ×4 (06:06→21:19)
[2020-03-29] MEDS ORDERED: SODIUM CHLORIDE 250 ML IV PRN (07:29)
[2020-03-29] MEDS ORDERED: EPOETIN ALFA 10,000 UNIT/1 ML VIAL IVPUSH ONE (08:00)
[2020-03-29 09:52] LABS: HEMATOCRIT 29.5 % (35.4-49); HEMOGLOBIN 9.9 GM/dL (11.7-16.9); MCH 30.9 pg (25.7-33.7); MCHC 33.6 g/dl (32.0-35.9); MEAN CELL VOLUME 91.9 fl (80-96); MEAN PLT VOLUME 7.9 fl (7.5-11.1); PLATELET COUNT 177 K/MM3 (134-434); RBC 3.21 M/mm3 (4.00-5.60); RDW 16.3 % (11.9-15.9); WHITE BLOOD COUNT 5.3 K/mm3 (4.0-10.0)
[2020-03-29 10:10] LABS: POTASSIUM 4.8 mmol/L (3.5-5.1)
[2020-03-29 10:13] LABS: CALCIUM 8.9 mg/dL (8.5-10.1)
[2020-03-29 10:17] LABS: PHOSPHOROUS 4.5 mg/dL (2.5-4.9)
[2020-03-29 10:39] LABS: CREATININE 8.7 mg/dL (0.55-1.3)
[2020-03-29] MEDS: CALCIUM ACETATE 667 MG CAPSULE (FP) PO SCH ×3 (12:50→17:51)
[2020-03-29] MEDS: amLODIPine BESYLATE 10 MG TABLET (FP) PO SCH (12:52)
[2020-03-29] MEDS: hydrALAZINE HCL 10 MG TABLET PO SCH ×2 (12:53→21:13)
[2020-03-29] MEDS: CARVEDILOL 12.5 MG TABLET (FP) PO SCH ×2 (12:53→21:13)
[2020-03-29] MEDS: MULTIVITAMINS (DAILY MVI) TABLET (FP) PO SCH (12:53)
[2020-03-29] MEDS: LOSARTAN POTASSIUM 50 MG TABLET PO SCH (12:53)
[2020-03-29] MEDS: TORSEMIDE 20 MG TABLET (FP) PO SCH (12:53)
[2020-03-29] MEDS ORDERED: PT OWN MED DRAWER 7, Y5N ONE (15:11)
[2020-03-30] MEDS: HEPARIN NA (PORCINE) 5,000 UNITS/ML 1ML VIAL SQ SCH ×3 (05:35→21:00)
[2020-03-30] MEDS: INSULIN SLIDING SCALE (NOVOLOG) 1 VIAL SQ SCH ×4 (06:08→21:04)
[2020-03-30] MEDS ORDERED: PT OWN MED DRAWER 7, Y5N ONE (09:57)
[2020-03-30] MEDS: hydrALAZINE HCL 10 MG TABLET PO SCH ×2 (10:07→21:00)
[2020-03-30] MEDS: TORSEMIDE 20 MG TABLET (FP) PO SCH (10:08)
[2020-03-30] MEDS: CALCIUM ACETATE 667 MG CAPSULE (FP) PO SCH ×3 (10:08→17:28)
[2020-03-30] MEDS: amLODIPine BESYLATE 10 MG TABLET (FP) PO SCH (10:08)
[2020-03-30] MEDS: LOSARTAN POTASSIUM 50 MG TABLET PO SCH (10:08)
[2020-03-30] MEDS: CARVEDILOL 12.5 MG TABLET (FP) PO SCH ×2 (10:08→21:00)
[2020-03-30] MEDS: MULTIVITAMINS (DAILY MVI) TABLET (FP) PO SCH (10:08)
[2020-03-31] MEDS: HEPARIN NA (PORCINE) 5,000 UNITS/ML 1ML VIAL SQ SCH ×3 (05:40→21:20)
[2020-03-31] MEDS: INSULIN SLIDING SCALE (NOVOLOG) 1 VIAL SQ SCH ×4 (06:01→21:34)
[2020-03-31] MEDS ORDERED: SODIUM CHLORIDE 250 ML IV PRN (08:00)
[2020-03-31] MEDS ORDERED: EPOETIN ALFA-EPBX 10,000 UNIT/ML VIAL IVPUSH ONE (08:00)
[2020-03-31 08:56] LABS: HEMATOCRIT 29.6 % (35.4-49); HEMOGLOBIN 9.9 GM/dL (11.7-16.9); MCH 30.8 pg (25.7-33.7); MCHC 33.4 g/dl (32.0-35.9); MEAN CELL VOLUME 92.4 fl (80-96); MEAN PLT VOLUME 8.1 fl (7.5-11.1); PLATELET COUNT 153 K/MM3 (134-434); RBC 3.21 M/mm3 (4.00-5.60); RDW 16.4 % (11.9-15.9); WHITE BLOOD COUNT 5.2 K/mm3 (4.0-10.0)
[2020-03-31 09:14] LABS: POTASSIUM 4.6 mmol/L (3.5-5.1)
[2020-03-31 09:21] LABS: PHOSPHOROUS 4.2 mg/dL (2.5-4.9)
[2020-03-31 09:44] LABS: CREATININE 9.2 mg/dL (0.55-1.3)
[2020-03-31] MEDS: amLODIPine BESYLATE 10 MG TABLET (FP) PO SCH (13:23)
[2020-03-31] MEDS: hydrALAZINE HCL 10 MG TABLET PO SCH ×2 (13:23→21:20)
[2020-03-31] MEDS: CALCIUM ACETATE 667 MG CAPSULE (FP) PO SCH ×3 (13:23→17:11)
[2020-03-31] MEDS: TORSEMIDE 20 MG TABLET (FP) PO SCH (13:24)
[2020-03-31] MEDS: MULTIVITAMINS (DAILY MVI) TABLET (FP) PO SCH (13:24)
[2020-03-31] MEDS: LOSARTAN POTASSIUM 50 MG TABLET PO SCH (13:24)
[2020-03-31] MEDS: CARVEDILOL 12.5 MG TABLET (FP) PO SCH ×2 (13:24→21:20)
[2020-04-01] MEDS: HEPARIN NA (PORCINE) 5,000 UNITS/ML 1ML VIAL SQ SCH ×3 (06:10→21:37)
[2020-04-01] MEDS: INSULIN SLIDING SCALE (NOVOLOG) 1 VIAL SQ SCH ×4 (07:38→22:33)
[2020-04-01] MEDS: CALCIUM ACETATE 667 MG CAPSULE (FP) PO SCH ×3 (09:39→16:39)
[2020-04-01] MEDS: amLODIPine BESYLATE 10 MG TABLET (FP) PO SCH (09:39)
[2020-04-01] MEDS: TORSEMIDE 20 MG TABLET (FP) PO SCH (09:40)
[2020-04-01] MEDS: CARVEDILOL 12.5 MG TABLET (FP) PO SCH ×2 (09:40→21:37)
[2020-04-01] MEDS: hydrALAZINE HCL 10 MG TABLET PO SCH ×2 (09:40→21:37)
[2020-04-01] MEDS: MULTIVITAMINS (DAILY MVI) TABLET (FP) PO SCH (09:40)
[2020-04-01] MEDS: LOSARTAN POTASSIUM 50 MG TABLET PO SCH (09:41)
[2020-04-01] MEDS: ERYTHROMYCIN 0.5% OPHTHALMIC OINTMENT 3.5 GM TUBE OS SCH ×2 (13:12→21:37)
[2020-04-02] MEDS: HEPARIN NA (PORCINE) 5,000 UNITS/ML 1ML VIAL SQ SCH ×2 (06:02→13:25)
[2020-04-02] MEDS: INSULIN SLIDING SCALE (NOVOLOG) 1 VIAL SQ SCH ×2 (06:14→11:39)
[2020-04-02] MEDS ORDERED: PT OWN MED DRAWER 7, Y5N ONE (11:08)
[2020-04-02] MEDS: CALCIUM ACETATE 667 MG CAPSULE (FP) PO SCH ×2 (11:12→13:25)
[2020-04-02] MEDS: MULTIVITAMINS (DAILY MVI) TABLET (FP) PO SCH (11:23)
[2020-04-02] MEDS: TORSEMIDE 20 MG TABLET (FP) PO SCH (11:23)
[2020-04-02] MEDS: hydrALAZINE HCL 10 MG TABLET PO SCH (11:23)
[2020-04-02] MEDS: CARVEDILOL 12.5 MG TABLET (FP) PO SCH ×2 (11:23→11:47)
[2020-04-02] MEDS: amLODIPine BESYLATE 10 MG TABLET (FP) PO SCH (11:23)
[2020-04-02] MEDS: ERYTHROMYCIN 0.5% OPHTHALMIC OINTMENT 3.5 GM TUBE OS SCH (11:24)
[2020-04-02] MEDS: LOSARTAN POTASSIUM 50 MG TABLET PO SCH (11:24)
[2020-04-02 19:20] VITALS: BP 135/63; PULSE 62; TEMP 98
== END 2020-04-02 13:58 | DRG 177 ==
LOC: JER 10:18 → JERBED 13:51 → J5WEST-2 03-20 00:41 → J6S 03-21 16:11 → J5S 03-23 15:04
PROVIDERS: ATTEND Internal Medicine
PROC: 5A1D70Z Performance of Urinary Filtration, Intermittent, Less than 6 Hours Per Day (ICD-10-PCS; principal; 2020-03-20)
PROC: 5A1D70Z Performance of Urinary Filtration, Intermittent, Less than 6 Hours Per Day (ICD-10-PCS; 2020-03-22)
PROC: 5A1D70Z Performance of Urinary Filtration, Intermittent, Less than 6 Hours Per Day (ICD-10-PCS; 2020-03-24)
PROC: 5A1D70Z Performance of Urinary Filtration, Intermittent, Less than 6 Hours Per Day (ICD-10-PCS; 2020-03-27)
PROC: 5A1D70Z Performance of Urinary Filtration, Intermittent, Less than 6 Hours Per Day (ICD-10-PCS; 2020-03-29)
PROC: 5A1D70Z Performance of Urinary Filtration, Intermittent, Less than 6 Hours Per Day (ICD-10-PCS; 2020-03-31)
DX: U07.1 COVID-19 (principal); J12.82 Pneumonia due to coronavirus disease 2019; N18.6 End stage renal disease; J96.01 Acute respiratory failure with hypoxia; I42.8 Other cardiomyopathies; I13.2 Hypertensive heart and chronic kidney disease with heart failure and with stage 5 chronic kidney disease, or end stage renal disease; I50.32 Chronic diastolic (congestive) heart failure; E11.22 Type 2 diabetes mellitus with diabetic chronic kidney disease; Z99.2 Dependence on renal dialysis; R50.9 Fever, unspecified; E78.5 Hyperlipidemia, unspecified; F41.9 Anxiety disorder, unspecified; D63.1 Anemia in chronic kidney disease; N25.0 Renal osteodystrophy
CPT/HCPCS: 36415; 71045-TC-FY; 80048; 80053; 81003; 82728; 82803; 82962; 83605; 83615; 83735; 84100; 84484; 85025; 85027; 85379; 85610; 85730; 86140; 86769; 86803; 87040; 87086; 87340; 87804; 87899; 93005; 93010; 97116-GP; 97161-GP; 99285-25; C9803; J0131; J0885; J1644; Q5106; U0003

== ENCOUNTER 2020-05-02 22:39 | Emergency (ER) | payer OTHER ==
[2020-05-02 22:54] VITALS: BP 157/56; PULSE 74; TEMP 99.1; BMI 23.3
[2020-05-02] MEDS ORDERED: ACETAMINOPHEN 325 MG TABLET (FP) PO ONE (23:56)
[2020-05-02] MEDS ORDERED: BUPIVACAINE HCL 0.5% 250 MG/50 ML VIAL IJ STA (23:57)
[2020-05-02] MEDS ORDERED: CLINDAMYCIN HCL 300 MG CAPSULE PO STA (23:59)
[2020-05-03] MEDS ORDERED: CLINDAMYCIN HCL 150 MG CAPSULE (FP) ONE (00:02)
[2020-05-03] MEDS ORDERED: ACETAMINOPHEN 325 MG TABLET (FP) ONE (00:02)
== END 2020-05-03 02:04 ==
LOC: JER 22:39
DX: K08.89 Other specified disorders of teeth and supporting structures (principal)
CPT/HCPCS: 99283-25

== ENCOUNTER 2021-11-21 11:25 | Observation (INO) | payer OTHER ==
[2021-11-21] MEDS ORDERED: ACETAMINOPHEN INJECTION 100 ML IVPB ONE (12:08)
[2021-11-21] MEDS ORDERED: ACETAMINOPHEN 1000 MG/100 ML BAG IVPB ONE (13:14)
[2021-11-21 14:01] LABS: BASO % 0.6 % (0-2.0); EOS % 0.3 % (0-4.5); HEMATOCRIT 33.9 % (35.4-49); HEMOGLOBIN 11.1 GM/dL (11.7-16.9); MCH 29.6 pg (25.7-33.7); MCHC 32.6 g/dl (32.0-35.9); MEAN CELL VOLUME 90.7 fl (80-96); MEAN PLT VOLUME 8.3 fl (7.5-11.1); NEUT % 86.1 % (42.8-82.8); PLATELET COUNT 108 10^3/uL (134-434); RBC 3.74 M/mm3 (4.00-5.60); RDW 17.3 % (11.9-15.9); WHITE BLOOD COUNT 6.3 K/mm3 (4.0-10.0)
[2021-11-21 14:02] LABS: EPI CELLS 2 /uL (0-25.1); HYALINE CASTS 0 /uL (0-3.1); PH,URINE 6.5 (5.0-8.0); URINE APPEARANCE CLEAR; URINE BACTERIA 7 /uL (0-1359); URINE BILIRUBIN NEGATIVE (NEGATIVE); URINE COLOR YELLOW; URINE GLUCOSE (UA) NEGATIVE (NEGATIVE); URINE KETONE TRACE (NEGATIVE); URINE LEUK ESTERASE NEGATIVE (NEGATIVE); URINE NITRITE NEGATIVE (NEGATIVE); URINE PROTEIN 2+ (NEGATIVE); URINE RBC 3 /uL (0-23.9); URINE UROBILINOGEN 0.2 mg/dL (0.2-1.0); URINE WBC 5 /uL (0-25.8)
[2021-11-21 14:06] LABS: INR 1.09 (0.83-1.09); PROTHROMBIN TIME (PATIENT) 12.6 SEC (9.7-13.0)
[2021-11-21 14:08] LABS: ACTIVATED PTT 29.9 SECONDS (25.2-36.5)
[2021-11-21 14:11] LABS: VENOUS BASE EXCESS -0.1 mmol/L (-2-2); VENOUS O2 SATURATION 81.3 % (70-80); VENOUS PH 7.384 (7.310-7.410)
[2021-11-21 14:32] LABS: ALBUMIN 3.4 g/dl (3.4-5.0); ANION GAP 11 MMOL/L (8-16); BLOOD UREA NITROGEN 42.6 mg/dL (7-18); CALCIUM 8.8 mg/dL (8.5-10.1); CHLORIDE 104 mmol/L (98-107); CO2 24 mmol/L (21-32); GLUCOSE,RANDOM 180 mg/dL (74-106); SGOT/AST 10 U/L (15-37); SGPT/ALT 18 U/L (13-61); SODIUM 139 mmol/L (136-145)
[2021-11-21 14:33] LABS: BILIRUBIN,TOTAL 0.5 mg/dL (0.2-1); TOT PROT 6.5 g/dl (6.4-8.2)
[2021-11-21 14:34] LABS: ALK PHOS 47 U/L (45-117)
[2021-11-21] MEDS ORDERED: CALCIUM GLUCONATE 10% - 1,000 MG/10 ML VIAL IVPB ONE (15:12)
[2021-11-21] MEDS ORDERED: SODIUM CHLORIDE 250 ML IV PRN (15:15)
[2021-11-21] MEDS ORDERED: ACETAMINOPHEN 325 MG TABLET (FP) PO PRN (15:26)
[2021-11-21] MEDS ORDERED: CALCIUM GLUCONATE 10% - 1,000 MG/10 ML VIAL ONE (15:34)
[2021-11-21 16:52] LABS: MAGNESIUM 2.1 mg/dL (1.8-2.4)
[2021-11-21 16:55] LABS: PHOSPHOROUS 3.3 mg/dL (2.5-4.9)
[2021-11-21 17:05] LABS: CREATININE 9.5 mg/dL (0.55-1.3)
[2021-11-21] MEDS: INSULIN SLIDING SCALE (NOVOLOG) 1 VIAL SQ SCH ×2 (19:28→21:16)
[2021-11-21] MEDS: CARVEDILOL 12.5 MG TABLET (FP) PO SCH (21:57)
[2021-11-21] MEDS: HEPARIN NA (PORCINE) 5,000 UNITS/ML 1ML VIAL SQ SCH (22:00)
[2021-11-22 02:47] VITALS: BMI 25.2
[2021-11-22] MEDS: HEPARIN NA (PORCINE) 5,000 UNITS/ML 1ML VIAL SQ SCH ×3 (05:43→21:45)
[2021-11-22] MEDS: INSULIN SLIDING SCALE (NOVOLOG) 1 VIAL SQ SCH ×4 (06:04→21:45)
[2021-11-22 07:18] LABS: HEMATOCRIT 34.2 % (35.4-49); HEMOGLOBIN 11.1 GM/dL (11.7-16.9); MCH 29.1 pg (25.7-33.7); MCHC 32.3 g/dl (32.0-35.9); MEAN CELL VOLUME 89.9 fl (80-96); MEAN PLT VOLUME 8.2 fl (7.5-11.1); PLATELET COUNT 118 10^3/uL (134-434); RDW 17.3 % (11.9-15.9); WHITE BLOOD COUNT 4.3 K/mm3 (4.0-10.0)
[2021-11-22 07:37] LABS: CALCIUM 8.2 mg/dL (8.5-10.1)
[2021-11-22 07:41] LABS: CREATININE 7.1 mg/dL (0.55-1.3); PHOSPHOROUS 4.8 mg/dL (2.5-4.9)
[2021-11-22] MEDS ORDERED: SODIUM CHLORIDE 250 ML IV PRN (07:52)
[2021-11-22 08:50] LABS: ANISOCYTOSIS 0; HELMET CELLS 0; HOWELL-JOLLY BODIES 0; MACROCYTOSIS 0; OVALOCYTE 0; ROULEAU 0; SICKELED CELLS 0; TARGET CELLS 0; TEAR DROP CELLS 0; TOXIC GRANULATION 0
[2021-11-22] MEDS: CARVEDILOL 12.5 MG TABLET (FP) PO SCH ×2 (10:18→21:45)
[2021-11-22] MEDS: TORSEMIDE 20 MG TABLET (FP) PO SCH (10:19)
[2021-11-22] MEDS: LOSARTAN POTASSIUM 50 MG TABLET PO SCH (10:19)
[2021-11-22] MEDS: TIOTROPIUM BROMIDE 2.5 MCG (SPIRIVA) RESPIMAT INHALER IH SCH (13:10)
[2021-11-22] MEDS ORDERED: VANCOMYCIN 1 GM/200 ML PREMIX BAG IVPB ONE (13:30)
[2021-11-23] MEDS: HEPARIN NA (PORCINE) 5,000 UNITS/ML 1ML VIAL SQ SCH ×3 (06:27→21:35)
[2021-11-23] MEDS: INSULIN SLIDING SCALE (NOVOLOG) 1 VIAL SQ SCH ×4 (06:31→21:46)
[2021-11-23 08:35] LABS: HEMATOCRIT 32.5 % (35.4-49); HEMOGLOBIN 10.5 GM/dL (11.7-16.9); MCH 29.2 pg (25.7-33.7); MCHC 32.2 g/dl (32.0-35.9); MEAN CELL VOLUME 90.6 fl (80-96); MEAN PLT VOLUME 8.4 fl (7.5-11.1); PLATELET COUNT 116 10^3/uL (134-434); RBC 3.58 M/mm3 (4.00-5.60); RDW 17.2 % (11.9-15.9); WHITE BLOOD COUNT 4.3 K/mm3 (4.0-10.0)
[2021-11-23 09:03] LABS: BLOOD UREA NITROGEN 29.7 mg/dL (7-18); CALCIUM 8.1 mg/dL (8.5-10.1)
[2021-11-23 09:04] LABS: ALBUMIN 3.2 g/dl (3.4-5.0)
[2021-11-23 09:07] LABS: CREATININE 6.9 mg/dL (0.55-1.3)
[2021-11-23 09:08] LABS: BILIRUBIN,TOTAL 0.5 mg/dL (0.2-1); TOT PROT 6.2 g/dl (6.4-8.2)
[2021-11-23] MEDS: CARVEDILOL 12.5 MG TABLET (FP) PO SCH ×2 (09:21→21:35)
[2021-11-23] MEDS: LOSARTAN POTASSIUM 50 MG TABLET PO SCH (09:21)
[2021-11-23] MEDS: TIOTROPIUM BROMIDE 2.5 MCG (SPIRIVA) RESPIMAT INHALER IH SCH (09:21)
[2021-11-23] MEDS: TORSEMIDE 20 MG TABLET (FP) PO SCH (09:21)
[2021-11-24] MEDS: HEPARIN NA (PORCINE) 5,000 UNITS/ML 1ML VIAL SQ SCH ×3 (06:06→21:32)
[2021-11-24] MEDS: INSULIN SLIDING SCALE (NOVOLOG) 1 VIAL SQ SCH ×4 (06:06→21:41)
[2021-11-24 09:29] LABS: HEMATOCRIT 32.1 % (35.4-49); HEMOGLOBIN 10.5 GM/dL (11.7-16.9); MCH 29.4 pg (25.7-33.7); MCHC 32.6 g/dl (32.0-35.9); MEAN CELL VOLUME 90.3 fl (80-96); MEAN PLT VOLUME 8.5 fl (7.5-11.1); PLATELET COUNT 117 10^3/uL (134-434); RBC 3.55 M/mm3 (4.00-5.60); RDW 16.9 % (11.9-15.9); WHITE BLOOD COUNT 4.6 K/mm3 (4.0-10.0)
[2021-11-24 09:49] LABS: CHLORIDE 98 mmol/L (98-107); SODIUM 136 mmol/L (136-145)
[2021-11-24 10:07] LABS: ALBUMIN 3.2 g/dl (3.4-5.0)
[2021-11-24 10:08] LABS: BLOOD UREA NITROGEN 48.3 mg/dL (7-18); GLUCOSE,RANDOM 180 mg/dL (74-106)
[2021-11-24 10:10] LABS: ANION GAP 13 MMOL/L (8-16); BILIRUBIN,TOTAL 0.4 mg/dL (0.2-1); CALCIUM 7.7 mg/dL (8.5-10.1); CO2 25 mmol/L (21-32); SGOT/AST 14 U/L (15-37); SGPT/ALT 21 U/L (13-61)
[2021-11-24 10:11] LABS: ALK PHOS 37 U/L (45-117)
[2021-11-24 10:17] LABS: CREATININE 8.9 mg/dL (0.55-1.3)
[2021-11-24] MEDS: TORSEMIDE 20 MG TABLET (FP) PO SCH (10:55)
[2021-11-24] MEDS: TIOTROPIUM BROMIDE 2.5 MCG (SPIRIVA) RESPIMAT INHALER IH SCH (10:56)
[2021-11-24] MEDS: CARVEDILOL 12.5 MG TABLET (FP) PO SCH ×2 (10:56→21:32)
[2021-11-24] MEDS: LOSARTAN POTASSIUM 50 MG TABLET PO SCH (10:56)
[2021-11-24] MEDS ORDERED: INSULIN SLIDING SCALE (NOVOLOG) 1 VIAL SQ ONE (11:15)
[2021-11-24] MEDS ORDERED: SODIUM CHLORIDE 250 ML IV PRN (11:28)
[2021-11-25] MEDS: INSULIN SLIDING SCALE (NOVOLOG) 1 VIAL SQ SCH ×3 (06:11→16:51)
[2021-11-25] MEDS: HEPARIN NA (PORCINE) 5,000 UNITS/ML 1ML VIAL SQ SCH ×2 (06:11→13:43)
[2021-11-25 06:12] VITALS: RESP 18
[2021-11-25] MEDS: CARVEDILOL 12.5 MG TABLET (FP) PO SCH (10:52)
[2021-11-25] MEDS: LOSARTAN POTASSIUM 50 MG TABLET PO SCH (10:52)
[2021-11-25] MEDS: TIOTROPIUM BROMIDE 2.5 MCG (SPIRIVA) RESPIMAT INHALER IH SCH (10:53)
[2021-11-25] MEDS: TORSEMIDE 20 MG TABLET (FP) PO SCH (10:53)
[2021-11-25 13:41] LABS: HEMATOCRIT 29.8 % (35.4-49); HEMOGLOBIN 9.7 GM/dL (11.7-16.9); MCH 29.5 pg (25.7-33.7); MCHC 32.7 g/dl (32.0-35.9); MEAN CELL VOLUME 90.2 fl (80-96); MEAN PLT VOLUME 8.2 fl (7.5-11.1); PLATELET COUNT 117 10^3/uL (134-434); WHITE BLOOD COUNT 4.4 K/mm3 (4.0-10.0)
[2021-11-25 14:01] LABS: CHLORIDE 100 mmol/L (98-107); SODIUM 135 mmol/L (136-145)
[2021-11-25 14:08] LABS: ANION GAP 12 MMOL/L (8-16); BLOOD UREA NITROGEN 64.2 mg/dL (7-18); CO2 22 mmol/L (21-32); GLUCOSE,RANDOM 170 mg/dL (74-106)
[2021-11-25 14:11] LABS: CALCIUM 7.6 mg/dL (8.5-10.1)
[2021-11-25 14:28] LABS: CREATININE 10.2 mg/dL (0.55-1.3)
[2021-11-25 17:54] VITALS: BP 133/51; PULSE 65; TEMP 98
== END 2021-11-25 18:47 | disposition short-term general hospital (02) ==
LOC: JER 11:25 → JERBED 15:11 → J4S 19:24
PROVIDERS: ADMIT Internal Medicine; ATTEND Internal Medicine
PROC: 3E03329 Introduction of Other Anti-infective into Peripheral Vein, Percutaneous Approach (ICD-10-PCS; principal; 2021-11-21)
PROC: 3E013VG Introduction of Insulin into Subcutaneous Tissue, Percutaneous Approach (ICD-10-PCS; 2021-11-21)
PROC: 3E033GC Introduction of Other Therapeutic Substance into Peripheral Vein, Percutaneous Approach (ICD-10-PCS; 2021-11-21)
DX: U07.1 COVID-19 (principal); I13.11 Hypertensive heart and chronic kidney disease without heart failure, with stage 5 chronic kidney disease, or end stage renal disease; E11.22 Type 2 diabetes mellitus with diabetic chronic kidney disease; N18.6 End stage renal disease; Z99.2 Dependence on renal dialysis; Z88.0 Allergy status to penicillin; Z88.8 Allergy status to other drugs, medicaments and biological substances; Z91.011 Allergy to milk products
CPT/HCPCS: 0241U-QW; 36415; 71045-TC-FY; 80048; 80053; 81003; 82550; 82553; 82803; 82962; 83605; 83735; 84100; 84484; 85025; 85027; 85610; 85730; 86803; 86850; 86900; 86901; 87040; 87077; 87086; 87340; 93005; 93010; 96372; 96374; 96375; 96376; 97116-GP; 97161-GP; 99285-25; G0378; J1644

== ENCOUNTER 2022-02-10 19:21 | Emergency (ER) | payer OTHER ==
[2022-02-10 19:48] VITALS: BMI 25.8
[2022-02-10] MEDS ORDERED: ACETAMINOPHEN 325 MG TABLET (FP) PO ONE (20:26)
[2022-02-10] MEDS ORDERED: ACETAMINOPHEN 325 MG TABLET (FP) ONE (20:45)
[2022-02-10 21:06] LABS: BASO % 0.6 % (0-2.0); EOS % 1.6 % (0-4.5); HEMATOCRIT 32.2 % (35.4-49); HEMOGLOBIN 10.5 GM/dL (11.7-16.9); LYMPH % 5.5 % (8-40); MCH 29.9 pg (25.7-33.7); MCHC 32.4 g/dl (32.0-35.9); MEAN CELL VOLUME 92.1 fl (80-96); MEAN PLT VOLUME 8.4 fl (7.5-11.1); MONO % 8.4 % (3.8-10.2); NEUT % 83.9 % (42.8-82.8); PLATELET COUNT 129 10^3/uL (134-434); RDW 15.8 % (11.9-15.9); WHITE BLOOD COUNT 9.6 K/mm3 (4.0-10.0)
[2022-02-10 21:26] LABS: CHLORIDE 104 mmol/L (98-107); SODIUM 140 mmol/L (136-145)
[2022-02-10 21:29] LABS: ALBUMIN 3.8 g/dl (3.4-5.0); ANION GAP 9 MMOL/L (8-16); CO2 26 mmol/L (21-32); GLUCOSE,RANDOM 119 mg/dL (74-106); LIPASE 310 U/L (73-393)
[2022-02-10 21:32] LABS: SGOT/AST 24 U/L (15-37); SGPT/ALT 19 U/L (13-61)
[2022-02-10 21:33] LABS: BILIRUBIN,TOTAL 0.6 mg/dL (0.2-1); TOT PROT 7.4 g/dl (6.4-8.2)
[2022-02-10 21:35] LABS: ALK PHOS 49 U/L (45-117)
[2022-02-10 21:46] LABS: CREATININE 8.8 mg/dL (0.55-1.3)
[2022-02-10 22:49] LABS: EPI CELLS 3 /uL (0-25.1); HYALINE CASTS 0 /uL (0-3.1); URINE APPEARANCE CLEAR; URINE BACTERIA 8 /uL (0-1359); URINE BILIRUBIN NEGATIVE (NEGATIVE); URINE COLOR YELLOW; URINE GLUCOSE (UA) NEGATIVE (NEGATIVE); URINE KETONE NEGATIVE (NEGATIVE); URINE LEUK ESTERASE NEGATIVE (NEGATIVE); URINE NITRITE NEGATIVE (NEGATIVE); URINE PROTEIN 3+ (NEGATIVE); URINE RBC 11 /uL (0-23.9); URINE UROBILINOGEN 0.2 mg/dL (0.2-1.0); URINE WBC 3 /uL (0-25.8)
[2022-02-10 23:23] LABS: CHLORIDE 106 mmol/L (98-107); SODIUM 139 mmol/L (136-145)
[2022-02-10 23:25] LABS: CALCIUM 9.4 mg/dL (8.5-10.1)
[2022-02-10 23:26] LABS: ANION GAP 9 MMOL/L (8-16); BLOOD UREA NITROGEN 41.7 mg/dL (7-18); CO2 25 mmol/L (21-32); GLUCOSE,RANDOM 135 mg/dL (74-106)
[2022-02-10 23:30] LABS: CREATININE 8.8 mg/dL (0.55-1.3)
[2022-02-11] MEDS ORDERED: SODIUM ZIRCONIUM CYCLOSILICATE (LOKELMA) 5 GM PACKET ONE (00:54)
[2022-02-11 01:10] VITALS: BP 151/54; PULSE 75; RESP 19; TEMP 98.7
[2022-02-11] MEDS ORDERED: SODIUM ZIRCONIUM CYCLOSILICATE (LOKELMA) 5 GM PACKET PO ONE (23:43)
== END 2022-02-11 05:20 | disposition home or self-care (01) ==
LOC: JER 19:21
DX: U07.1 COVID-19 (principal); N18.6 End stage renal disease
CPT/HCPCS: 0241U-QW; 36415; 71045-TC-FY; 74176-TC; 80048; 80053; 81003; 83690; 84484; 85025; 87086; 93005; 93010; 99285-25

== ENCOUNTER 2022-06-23 07:23 | Emergency (ER) | payer OTHER ==
[2022-06-23 07:31] VITALS: BMI 25.3
[2022-06-23] MEDS ORDERED: ACETAMINOPHEN 1000 MG/100 ML BAG IVPB ONE (07:43)
[2022-06-23] MEDS ORDERED: SODIUM CHLORIDE 0.9% 500 ML INFUS.BAG IV ONE ×2 (07:43→07:47)
[2022-06-23] MEDS ORDERED: ACETAMINOPHEN INJECTION 100 ML IVPB ONE (08:04)
[2022-06-23] MEDS ORDERED: CEFTRIAXONE 1,000 MG in DEXTROSE 5%-WATER - 50 ML IVPB ONE (08:12)
[2022-06-23 08:24] LABS: EPI CELLS 6 /uL (0-25.1); HYALINE CASTS 0 /uL (0-3.1); URINE APPEARANCE CLEAR; URINE BACTERIA 10 /uL (0-1359); URINE BILIRUBIN NEGATIVE (NEGATIVE); URINE COLOR YELLOW; URINE GLUCOSE (UA) 2+ (NEGATIVE); URINE KETONE NEGATIVE (NEGATIVE); URINE LEUK ESTERASE NEGATIVE (NEGATIVE); URINE NITRITE NEGATIVE (NEGATIVE); URINE PROTEIN 1+ (NEGATIVE); URINE RBC 49 /uL (0-23.9); URINE UROBILINOGEN 0.2 mg/dL (0.2-1.0); URINE WBC 5 /uL (0-25.8)
[2022-06-23 08:27] LABS: VENOUS BASE EXCESS -3.4 mmol/L (-2-2); VENOUS O2 SATURATION 40.4 % (70-80); VENOUS PCO2 47.9 mmHg (38-52); VENOUS PH 7.301 (7.310-7.410)
[2022-06-23 08:32] LABS: BASO % 0.3 % (0-2.0); EOS % 0.4 % (0-4.5); HEMATOCRIT 27.3 % (35.4-49); HEMOGLOBIN 9.2 GM/dL (11.7-16.9); LYMPH % 5.3 % (8-40); MCH 30.6 pg (25.7-33.7); MCHC 33.7 g/dl (32.0-35.9); MEAN CELL VOLUME 90.9 fl (80-96); MEAN PLT VOLUME 8.6 fl (7.5-11.1); MONO % 6.2 % (3.8-10.2); NEUT % 87.8 % (42.8-82.8); PLATELET COUNT 105 10^3/uL (134-434); RDW 18.1 % (11.9-15.9); WHITE BLOOD COUNT 9.3 K/mm3 (4.0-10.0)
[2022-06-23 08:42] LABS: INR 1.19 (0.83-1.09); PROTHROMBIN TIME (PATIENT) 13.8 SEC (9.7-13.0)
[2022-06-23 08:45] LABS: POTASSIUM 5.3 mmol/L (3.5-5.1)
[2022-06-23 08:47] LABS: CALCIUM 8.9 mg/dL (8.5-10.1)
[2022-06-23 08:48] LABS: ALBUMIN 3.5 g/dl (3.4-5.0)
[2022-06-23 08:51] LABS: CREATININE 1.6 mg/dL (0.55-1.3)
[2022-06-23 08:53] LABS: BILIRUBIN,TOTAL 1.2 mg/dL (0.2-1); TOT PROT 6.3 g/dl (6.4-8.2)
[2022-06-23] MEDS ORDERED: CEFTRIAXONE 1 GM/50 ML BAG ONE (08:59)
[2022-06-23 14:01] VITALS: PULSE 84; RESP 16; TEMP 98.7
[2022-06-23 14:37] VITALS: BP 182/61
== END 2022-06-23 14:27 | disposition short-term general hospital (02) ==
LOC: JER 07:23
PROC: 3E03329 Introduction of Other Anti-infective into Peripheral Vein, Percutaneous Approach (ICD-10-PCS; principal; 2022-06-23)
PROC: 3E033NZ Introduction of Analgesics, Hypnotics, Sedatives into Peripheral Vein, Percutaneous Approach (ICD-10-PCS; 2022-06-23)
DX: U07.1 COVID-19 (principal); R10.9 Unspecified abdominal pain; R50.9 Fever, unspecified; R11.0 Nausea; Z94.0 Kidney transplant status
CPT/HCPCS: 0241U-QW; 36415; 71045-TC-FY; 74176-TC; 80053; 80197; 81003; 82550; 82553; 82803; 83605; 84484; 85025; 85610; 85730; 86850; 86900; 86901; 87040; 93005; 93010; 99285-25